=== PATIENT | male | born 1930 | race Hispanic/Latino ===

== ENCOUNTER 2017-04-11 20:21 | Emergency (ER) | payer MEDICARE ==
[2017-04-11 20:38] VITALS: BMI 24.9
[2017-04-11 20:39] VITALS: TEMP 98
[2017-04-11 21:33] LABS: BASO # 0.03 K/mm3 (0.0-2.0); BASO % 0.3 % (0.0-3.0); EOS # 0.3 (0.0-0.7); GRAN # 7.19 (1.4-6.5); GRAN % 65.2 % (50.0-68.0); HEMATOCRIT 37.2 % (42.0-52.0); LYMPH # 2.3 (1.2-3.4); MEAN CELL VOLUME 88.4 fl (80.0-105.0); MEAN CORPUSCULAR HEMOGLOBIN 28.3 pg (25.0-35.0); MEAN PLATELET VOLUME 9.4 fl (7.0-11.0); MONO # 1.2 (0.1-0.6); MONO % 10.5 % (1.0-6.0); RED CELL DISTRIBUTION WIDTH 14.1 % (11.5-14.5)
[2017-04-11 21:37] LABS: ALB/GLOB RATIO 1.1 (1.1-1.8); ALKALINE PHOSPHATASE 73 U/L (38-126); ALT/SGPT 30 U/L (7-56); AST/SGOT 30 U/L (17-59); BILIRUBIN,TOTAL 0.5 mg/dL (0.2-1.3); BLOOD UREA NITROGEN 14 mg/dL (7-21); CALCIUM 9.2 mg/dL (8.4-10.5); CARBON DIOXIDE 25 mmol/L (21-33); CHLORIDE 104 mmol/L (98-107); GFR AFRICAN-AMERICAN > 60; GLUCOSE,RANDOM 117 mg/dL (70-110); MAGNESIUM 1.7 mg/dL (1.7-2.2); POTASSIUM 4.5 mmol/L (3.6-5.0); SODIUM 138 mmol/L (132-148); TOTAL PROTEIN 7.4 g/dL (5.8-8.3)
[2017-04-11 21:40] LABS: INR 2.72 (0.93-1.08); PARTIAL THROMBOPLASTIN TIME 40.6 Seconds (23.7-30.8)
[2017-04-11 21:49] LABS: TROPONIN I 0.01 ng/mL
[2017-04-11] MEDS ORDERED: Iohexol 350 MG/100 ML VIAL ONE (21:54)
--- NOTE | 2017-04-11 21:55 | ED PDOC ---
Arrival/HPI - General Chief Complaint: Back Pain Time Seen by Provider: 04/11/17 20:37 Historian: Patient - History of Present Illness Narrative History of Present Illness (Text): 04/11/17 21:54 An 86 year old male, whose past medical history includes thoracic ascending aneurysm and arthritis, presents to the emergency department complaining of bilateral shoulder pain and neck pain. Patient's daughter is concerned because of patient's history of aneurysm and is specifically asking for imaging in the emergency department. Patient reports pain resolved after taking Tylenol. Patient denies any other complaints at this time. PMD: Dr. Marie Symptom Onset: Sudden Symptom Course: Resolved Activities at Onset: Rest Modifying Factors (Text): symptoms resolved with tylenol Context: Home Past Medical History - Provider Review Nursing Documentation Reviewed: Yes - Infectious Disease Hx of Infectious Diseases: None - Cardiac Hx Cardiac Disorders: Yes Other/Comment: AORTIC ANEURYSM. Aortic valve 1994. Triple bYpass - Pulmonary Hx Respiratory Disorders: No - Neurological Hx Neurological Disorder: Yes Hx Transient Ischemic Attacks (TIA): Yes - HEENT Hx HEENT Disorder: No - Renal Hx Renal Disorder: No - Endocrine/Metabolic Hx Endocrine Disorders: No - Hematological/Oncological Hx Blood Disorders: No - Integumentary Hx Dermatological Disorder: No - Musculoskeletal/Rheumatological Hx Musculoskeletal Disorders: No Hx Falls: No - Gastrointestinal Hx Gastrointestinal Disorders: Yes Hx Crohn's Disease: Yes - Genitourinary/Gynecological Hx Genitourinary Disorders: No - Psychiatric Hx Psychophysiologic Disorder: No Hx Substance Use: No - Surgical History Hx Coronary Stent: Yes (x1) Hx Open Heart Surgery: Yes Hx Valve Replacement: Yes (AORTIC) Other/Comment: HEMORRHOIDECTOMY. AORTIC ANEURYSM. Aortic valve 1994. Triple bYpass - Anesthesia Hx Anesthesia: Yes Hx Anesthesia Reactions: No Hx Malignant Hyperthermia: No - Suicidal Assessment Feels Threatened In Home Enviroment: No Family/Social History - Physician Review Nursing Documentation Reviewed: Yes Family/Social History: No Known Family HX Smoking Status: Never Smoked Hx Alcohol Use: No Hx Substance Use: No Hx Substance Use Treatment: No Allergies/Home Meds Allergies/Adverse Reactions: Allergies pneumococcal vaccine Allergy (Verified 03/29/16 07:29) RASH Home Medications: Home Meds Medication Instructions Recorded Confirmed Amiodarone [Cordarone] 100 mg PO DAILY 09/02/15 04/11/17 Aspirin [Ecotrin] 81 mg PO DAILY 09/02/15 04/11/17 Mesalamine [Pentasa] 1,000 mg PO BID 09/02/15 04/11/17 Calcium Carbonate/Vitamin D3 1 tab PO DAILY 11/09/15 04/11/17 [Calcium 600-Vit D3 200 Tablet] Simvastatin [Zocor] 40 mg PO DAILY 11/09/15 04/11/17 Warfarin [Coumadin] 4 mg PO TTS 11/09/15 04/11/17 Glimepiride 2 mg PO HS 03/01/16 04/11/17 metFORMIN [glucOPHAGE] 500 mg PO TID 03/01/16 04/11/17 Tamsulosin [Flomax] 0.4 mg PO DAILY 03/29/16 04/11/17 Review of Systems - Physician Review All systems were reviewed & negative as marked: Yes - Review of Systems Constitutional: absent: Fevers Musculoskeletal: Neck Pain, Other (bilateral shoulder pain) Physical Exam Vital Signs Reviewed: Yes Vital Signs Temp Pulse Resp BP Pulse Ox 04/11/17 22:48 72 20 154/74 H 95 04/11/17 20:38 98 F 75 17 150/76 96 Temperature: Afebrile Blood Pressure: Normal Pulse: Regular Respiratory Rate: Normal Appearance: Positive for: Well-Appearing, Non-Toxic, Comfortable Pain Distress: None Mental Status: Positive for: Alert and Oriented X 3 - Systems Exam Head: Present: Atraumatic, Normocephalic Pupils: Present: PERRL Extroacular Muscles: Present: EOMI Conjunctiva: Present: Normal Mouth: Present: Moist Mucous Membranes Neck: Present: Normal Range of Motion Respiratory/Chest: Present: Clear to Auscultation, Good Air Exchange. No: Respiratory Distress, Accessory Muscle Use Cardiovascular: Present: Regular Rate and Rhythm, Normal S1, S2. No: Murmurs Abdomen: Present: Normal Bowel Sounds. No: Tenderness, Distention, Peritoneal Signs Back: Present: Normal Inspection Upper Extremity: Present: Normal Inspection. No: Cyanosis, Edema Lower Extremity: Present: Normal Inspection. No: Edema Neurological: Present: GCS=15, CN II-XII Intact, Speech Normal Skin: Present: Warm, Dry, Normal Color. No: Rashes Psychiatric: Present: Alert, Oriented x 3, Normal Insight, Normal Concentration Medical Decision Making ED Course and Treatment: 04/11/17 21:52 Impression: An 86 year old male with bilateral shoulder pain and neck pain. Plan: -- CT angiography disection -- chest xray -- labs -- Urinalysis -- Reassess and disposition Prior Visits: Notes and results from previous visits were reviewed. Patient last reported to the emergency department on 03/29/16 for evaluation of stiff neck. Progress Notes: CT Angiography Chest With Intravenous Contrast FINDINGS: Heart, aorta and Pulmonary arteries: The heart is enlarged. There are coronary artery calcifications. There is an ascending aortic aneurysm. Maximal diameter is approximately 5.3 cm. There is no dissection. There is no leak. There is tapering at the arch. There is perfusion of the 3 arch vessels. There are atherosclerotic calcifications in the arch. Proximal descending aorta measures 2.8 cm in diameter. The distal descending aorta measures 2.2 cm in diameter. Main pulmonary artery is normal in caliber.There are no pulmonary emboli. Lungs and pleural spaces: Trachea and main bronchi are patent. There is a 1.8 x 1.3 x 1 cm right upper lobe pulmonary nodule. There is subsegmental opacity in the left upper lobe. There is dependent atelectasis in the lung bases. There is no lobar or segmental consolidation There are no effusions. Mediastinum: There is no fluid in the mediastinum. There are multiple clips. Esophagus is unremarkable. There are mildly prominent paratracheal nodes. There are no pathologically enlarged hilar nodes. Thyroid: Thyroid is only partially imaged. Bones/joints: There are postsurgical changes of median sternotomy. Bony structures are osteopenic. There are degenerative changes. There is an old compression fracture T7. There is an old compression fracture T11. There is an old compression fracture with severe deformity at T12. There are retropulsed fragments at T12. There is T12 laminectomy. Soft tissues: unremarkable Upper abdomen: Refer to following report for abdominal findings IMPRESSION: 5.3 cm ascending aortic aneurysm, no dissection or leak, similar finding seen on the prior study; atherosclerotic disease;; 1.8 x 1.3 x 1 cm right upper lobe pulmonary nodule increased in size since the prior study; subsegmental atelectasis/scarring in the left upper lobe, similar finding seen on the prior study; prior bypass surgery; multiple compression fractures Additional findings as described above. CT Angiography Abdomen and Pelvis With Intravenous Contrast FINDINGS: Lower thorax: see above VASCULATURE: Aorta: There are atherosclerotic calcifications in the aortic wall. There is focal dilatation of the infrarenal aorta, 2 cm in diameter. There is no leak. There is perfusion of all major abdominal aortic branches. There are calcified plaques at the origins both renal arteries. There is minimal plaque at the origin of the superior mesenteric artery. A there is perfusion of both iliacs. Celiac trunk and mesenteric arteries: see above Renal arteries: See above. Iliac arteries: see above ABDOMEN: Liver: unremarkable Gallbladder and bile ducts: Gallbladder is partially distended. There are small calcified stones. Common duct is unremarkable. Pancreas: Pancreas is atrophic. Spleen: unremarkable Adrenals: unremarkable Kidneys and ureters: Unremarkable Stomach and bowel: Stomach is incompletely distended. Rotation is normal. There is duodenal fold and wall prominence. Jejunum is mildly distended. There are air-fluid levels in the left upper quadrant jejunal loops. The small bowel is distended with fluid. There is distal and terminal ileal wall and fold thickening. There is abnormal wall enhancement. Wall thickening and enhancement extends to the ileocecal valve.Appendix is not visualized.Colon is incompletely distended which limits evaluation. Streak limits evaluation of the colon. There is extensive sigmoid diverticulosis. Appendix: See above PELVIS: Bladder: Bladder is partially distended. There is mild bladder wall thickening. There are multiple bladder diverticula. Reproductive: Prostate is enlarged 6 x 6 cm. Seminal vesicles are unremarkable. ABDOMEN and PELVIS: Intraperitoneal space: There is no free air or free fluid. Bones/joints: Bony structures are osteopenic. There are degenerative changes. There is mild loss of height at T11 and L2. There is severe compression deformity at T12. There is a laminectomy at T12 There is old compression fracture L5 with vertebroplasty. Soft tissues: unremarkable Lymph nodes: There is no pathologic adenopathy. IMPRESSION: Atherosclerotic disease in the aorta, minimal intra-renal dilatation , no dissection or leak; enteritis with marked thickening of distal and terminal ileal wall; diverticulosis without CT findings of diverticulitis; enlarged prostate with bladder wall thickening and multiple bladder diverticula; multiple compression fractures at L5 vertebroplasty Additional findings as described above. Dictated and Authenticated by: Carmen Alva MD 04/11/2017 11:48 PM Eastern Time ([place] & [place]) 04/11/17 23:55 Chest xray: No active disease, interpreted by me. 04/12/17 00:20 CT neg for aneurysm, CT shows enteritis. Patient with history of Crohn's disease. No fever or abdominal pain. While in emergency department, patient was complaining of mild headache, Tylenol given. Patient is ambulating in no acute distress. Patient is requesting to be discharged home an refusing further observation. - Lab Interpretations Lab Results: 04/11/17 21:15 04/11/17 21:15 Lab Results 04/11/17 23:19: Urine Color Yellow, Urine Appearance Clear, Urine pH 6.0, Ur Specific [place] 1.010, Urine Protein Negative, Urine Glucose (UA) Negative, Urine Ketones Negative, Urine Blood Trace-lysed H, Urine Nitrate Negative, Urine Bilirubin Negative, Urine Urobilinogen 0.2, Ur Leukocyte Esterase Negative , Urine RBC 0 - 2, Urine WBC 0 - 2, Ur Epithelial Cells 0 - 2 04/11/17 21:15: Sodium 138, Potassium 4.5, Chloride 104, Carbon Dioxide 25, Anion Gap 14, BUN 14, Creatinine 1.0, Est GFR ( Amer) > 60, Est GFR (Non- Af Amer) > 60, Random Glucose 117 H, Calcium 9.2, Magnesium 1.7, Total Bilirubin 0.5, AST 30, ALT 30, Alkaline Phosphatase 73, Lactate Dehydrogenase 447, Total Creatine Kinase 46, Troponin I 0.01, Total Protein 7.4, Albumin 3.9, Globulin 3.5, Albumin/Globulin Ratio 1.1 04/11/17 21:15: PT 29.4 H, INR 2.72 H, APTT 40.6 H 04/11/17 21:15: WBC 11.0 D, RBC 4.21, Hgb 11.9 L, Hct 37.2 L, MCV 88.4, MCH 28.3, MCHC 32.0, RDW 14.1, Plt Count 309, MPV 9.4, Gran % 65.2, Lymph % (Auto) 21.0 L, [place] % (Auto) 10.5 H, Eos % (Auto) 3.0, Baso % (Auto) 0.3, Gran # 7.19 H , Lymph # 2.3, [place] # 1.2 H, Eos # 0.3, Baso # 0.03 I have reviewed the lab results: Yes - RAD Interpretation Radiology Orders: 04/11/17 20:53 CHEST PORTABLE [RAD] Stat 04/11/17 21:43 ANGIOGRAPHY DISECTION PROTOCOL [CT] Stat - Medication Orders Current Medication Orders: Discontinued Medications Acetaminophen (Tylenol 325mg Tab) 650 mg PO STAT STA Stop: 04/11/17 23:56 Last Admin: 04/12/17 00:10 Dose: 650 mg MAR Pain/Vitals Document 04/12/17 00:10 [facility] (Rec: 04/12/17 00:11 [facility] [id number]) Pain Reassessment Is This A Pain ReAssessment? No Sleep Is patient sleeping during reassessment? No Presence of Pain Presence of Pain Yes Pain Scale Used Pain Scale Used Numeric Location Pain Location Body Business Change Manager Description Constant Intensity 4 Scale Used Numeric - Scribe Statement The provider has reviewed the documentation as recorded by the Scribe Ivan Bullock All medical record entries made by the Scribe were at my direction and personally dictated by me. I have reviewed the chart and agree that the record accurately reflects my personal performance of the history, physical exam, medical decision making, and the department course for this patient. I have also personally directed, reviewed, and agree with the discharge instructions and disposition. Disposition/Present on Arrival - Present on Arrival Any Indicators Present on Arrival: No History of DVT/PE: No History of Uncontrolled Diabetes: No Urinary Catheter: No History of Decub. Ulcer: No History Surgical Site Infection Following: CABG - Mediastinitis - Disposition Have Diagnosis and Disposition been Completed?: Yes Diagnosis: Shoulder pain, Neck pain Disposition: HOME/ ROUTINE Disposition Time: 11:00 Condition: STABLE Discharge Instructions (ExitCare): Cervical Strain (DC), Thoracic Aortic Aneurysm (ED), Shoulder Sprain (ED) Additional Instructions: please follow up with your doctor. return to er with worsening symptoms or concerns Referrals: Reji Marie MD [Primary Care Provider] - Follow up with primary Twan Edward MD [Staff Provider] - Follow up with primary Forms: [employer] (Japanese)
[2017-04-11 22:49] VITALS: BP 154/74; PULSE 72; RESP 20; O2SAT 95
[2017-04-11 23:36] LABS: URINE BILIRUBIN NEGATIVE (NEGATIVE); URINE BLOOD TRACE-LYSED (NEGATIVE); URINE GLUCOSE (UA) NEGATIVE (NEGATIVE); URINE KETONE NEGATIVE (NEGATIVE); URINE LEUKOCYTE ESTERASE NEGATIVE Leu/uL (NEGATIVE); URINE PROTEIN NEGATIVE mg/dL (<30 mg/dL); URINE UROBILINOGEN 0.2 E.U./dL (<1 E.U./dL)
[2017-04-11 23:46] LABS: URINE APPEARANCE CLEAR (CLEAR); URINE COLOR YELLOW (YELLOW)
--- NOTE | 2017-04-11 23:48 | CT ---
EXAM: CT Angiography Chest With Intravenous Contrast CLINICAL HISTORY: 86 years old, male; Pain; Abdominal pain; Chest pain; Type not specified; Patient HX: Prior study sent; Additional info: Cp h/o of thorasic aneursym TECHNIQUE: Axial computed tomographic angiography images of the chest with intravenous contrast using pulmonary embolism protocol. All CT scans at this facility use one or more dose reduction techniques, viz.: automated exposure control; ma/kV adjustment per patient size (including targeted exams where dose is matched to indication; i.e. head); or iterative reconstruction technique. MIP reconstructed images were created and reviewed. Coronal and sagittal reformatted images were created and reviewed. CONTRAST: 100 mL of OMNI 350 administered intravenously. COMPARISON: CTA chest abdomen 07/21/15 FINDINGS: Heart, aorta and Pulmonary arteries: The heart is enlarged. There are coronary artery calcifications. There is an ascending aortic aneurysm. Maximal diameter is approximately 5.3 cm. There is no dissection. There is no leak. There is tapering at the arch. There is perfusion of the 3 arch vessels. There are atherosclerotic calcifications in the arch. Proximal descending aorta measures 2.8 cm in diameter. The distal descending aorta measures 2.2 cm in diameter. Main pulmonary artery is normal in caliber.There are no pulmonary emboli. Lungs and pleural spaces: Trachea and main bronchi are patent. There is a 1.8 x 1.3 x 1 cm right upper lobe pulmonary nodule. There is subsegmental opacity in the left upper lobe. There is dependent atelectasis in the lung bases. There is no lobar or segmental consolidation There are no effusions. Mediastinum: There is no fluid in the mediastinum. There are multiple clips. Esophagus is unremarkable. There are mildly prominent paratracheal nodes. There are no pathologically enlarged hilar nodes. Thyroid: Thyroid is only partially imaged. Bones/joints: There are postsurgical changes of median sternotomy. Bony structures are osteopenic. There are degenerative changes. There is an old compression fracture T7. There is an old compression fracture T11. There is an old compression fracture with severe deformity at T12. There are retropulsed fragments at T12. There is T12 laminectomy. Soft tissues: unremarkable Upper abdomen: Refer to following report for abdominal findings IMPRESSION: 5.3 cm ascending aortic aneurysm, no dissection or leak, similar finding seen on the prior study; atherosclerotic disease;; 1.8 x 1.3 x 1 cm right upper lobe pulmonary nodule increased in size since the prior study; subsegmental atelectasis/scarring in the left upper lobe, similar finding seen on the prior study; prior bypass surgery; multiple compression fractures Additional findings as described above. EXAM: CT Angiography Abdomen and Pelvis With Intravenous Contrast EXAM DATE/TIME: 04/11/2017 9:43 PM CLINICAL HISTORY: 86 years old, male; Pain; Abdominal pain; Chest pain; Type not specified; Patient HX: Prior study sent; Additional info: Cp h/o of thorasic aneursym TECHNIQUE: Axial computed tomographic angiography images of the abdomen and pelvis with intravenous contrast. All CT scans at this facility use one or more dose reduction techniques, viz.: automated exposure control; ma/kV adjustment per patient size (including targeted exams where dose is matched to indication; i.e. head); or iterative reconstruction technique. MIP reconstructed images were created and reviewed. Coronal and sagittal reformatted images were created and reviewed. CONTRAST: 100 mL of OMNI 350 administered intravenously. COMPARISON: CTA chest abdomen 07/21/15 FINDINGS: Lower thorax: see above VASCULATURE: Aorta: There are atherosclerotic calcifications in the aortic wall. There is focal dilatation of the infrarenal aorta, 2 cm in diameter. There is no leak. There is perfusion of all major abdominal aortic branches. There are calcified plaques at the origins both renal arteries. There is minimal plaque at the origin of the superior mesenteric artery. A there is perfusion of both iliacs. Celiac trunk and mesenteric arteries: see above Renal arteries: See above. Iliac arteries: see above ABDOMEN: Liver: unremarkable Gallbladder and bile ducts: Gallbladder is partially distended. There are small calcified stones. Common duct is unremarkable. Pancreas: Pancreas is atrophic. Spleen: unremarkable Adrenals: unremarkable Kidneys and ureters: Unremarkable Stomach and bowel: Stomach is incompletely distended. Rotation is normal. There is duodenal fold and wall prominence. Jejunum is mildly distended. There are air-fluid levels in the left upper quadrant jejunal loops. The small bowel is distended with fluid. There is distal and terminal ileal wall and fold thickening. There is abnormal wall enhancement. Wall thickening and enhancement extends to the ileocecal valve.Appendix is not visualized.Colon is incompletely distended which limits evaluation. Streak limits evaluation of the colon. There is extensive sigmoid diverticulosis. Appendix: See above PELVIS: Bladder: Bladder is partially distended. There is mild bladder wall thickening. There are multiple bladder diverticula. Reproductive: Prostate is enlarged 6 x 6 cm. Seminal vesicles are unremarkable. ABDOMEN and PELVIS: Intraperitoneal space: There is no free air or free fluid. Bones/joints: Bony structures are osteopenic. There are degenerative changes. There is mild loss of height at T11 and L2. There is severe compression deformity at T12. There is a laminectomy at T12 There is old compression fracture L5 with vertebroplasty. Soft tissues: unremarkable Lymph nodes: There is no pathologic adenopathy. IMPRESSION: Atherosclerotic disease in the aorta, minimal intra-renal dilatation, no dissection or leak; enteritis with marked thickening of distal and terminal ileal wall; diverticulosis without CT findings of diverticulitis; enlarged prostate with bladder wall thickening and multiple bladder diverticula; multiple compression fractures at L5 vertebroplasty Additional findings as described above.
[2017-04-11 23:57] LABS: URINE EPITHELIAL CELLS 0 - 2 /hpf (0-5); URINE RBC 0 - 2 /hpf (0-2); URINE WBC 0 - 2 /hpf (0-6)
--- NOTE | 2017-04-12 08:51 | RAD ---
HISTORY: cp COMPARISON: 11/09/2015 FINDINGS: LUNGS: No active pulmonary disease. PLEURA: No significant pleural effusion identified, no pneumothorax apparent. CARDIOVASCULAR: Moderate cardiomegaly OSSEOUS STRUCTURES: Sternal wires VISUALIZED UPPER ABDOMEN: Normal. OTHER FINDINGS: None. IMPRESSION: No active disease.
--- NOTE | 2017-04-12 22:07 | CARD ---
APPROVED REPORT EKG Measurement Heart [id number] ID [id number] <Conclusion> Normal sinus rhythm Low voltage QRS Septal infarct, age undetermined Consider anterior ischemia Abnormal ECG
== END 2017-04-12 00:31 | disposition home or self-care (01) ==
LOC: ED 20:21
DX: M25.512 Pain in left shoulder (principal); M25.511 Pain in right shoulder; M54.2 Cervicalgia
CPT/HCPCS: 71010; 71275; 74175; 80053; 81001; 82550; 83615; 83735; 84484; 85025; 85610; 85730; 93005; 99283; Q9967

== ENCOUNTER 2017-06-16 06:58 | Inpatient (IN) | payer MEDICARE ==
[2017-06-16] MEDS ORDERED: Phenylephrine 10 mg/ml Inj ONE (07:04)
[2017-06-16] MEDS ORDERED: Lidocaine 2% Inj (20ml) ONE (07:04)
[2017-06-16] MEDS ORDERED: Iodixanol 320 MG/ML 100 ML BOTTLE IV ONE (07:09)
[2017-06-16] MEDS ORDERED: Iohexol 350mgl/ml 50 ML ONE (07:09)
[2017-06-16] MEDS ORDERED: Nitroglycerin 50mg in D5W 0 MG/0 ML BOTTLE IV ONE (07:09)
[2017-06-16] MEDS ORDERED: Midazolam 2 MG/2 ML VIAL ONE ×2 (07:09→08:39)
[2017-06-16] MEDS ORDERED: Iodixanol 320 MG/ML 200 ML BOTTLE IV ONE (07:09)
[2017-06-16] MEDS ORDERED: HEPARIN SODIUM/NS 2,000 ML IV ONE (07:13)
[2017-06-16 08:07] LABS: INR 1.25 (0.93-1.08); PROTHROMBIN TIME 13.8 SECONDS (9.4-12.5)
[2017-06-16] MEDS ORDERED: HEPARIN SODIUM/NS 1,000 ML IV ONE (08:41)
[2017-06-16] MEDS ORDERED: Sodium Chloride 0.9% 1,000 ML IV SCH ×2 (09:30→12:57)
[2017-06-16] MEDS: Flumazenil 0.1 mg/ml Inj (5ml) IVP STA ×2 (10:55→11:12)
[2017-06-16] MEDS ORDERED: Flumazenil 0.1 mg/ml Inj (5ml) IVP STA (11:07)
--- NOTE | 2017-06-16 12:31 | CT ---
PROCEDURE: CT HEAD WITHOUT CONTRAST. HISTORY: r/o stroke COMPARISON: CT head dated 11/09/2015. TECHNIQUE: Axial computed tomography images were obtained through the head/brain without intravenous contrast. Radiation dose: Total exam DLP = 971.7 mGy-cm. This CT exam was performed using one or more of the following dose reduction techniques: Automated exposure control, adjustment of the mA and/or kV according to patient size, and/or use of iterative reconstruction technique. FINDINGS: HEMORRHAGE: No intracranial hemorrhage. BRAIN: Faint opacification of the intracranial vessels from recent intravascular procedure with patency of the [place] vessels. No mass effect or edema. Cerebral atrophy. Chronic microvascular ischemic changes in the periventricular white matter. VENTRICLES: Unremarkable. No hydrocephalus. CALVARIUM: Unremarkable. PARANASAL SINUSES: Unremarkable as visualized. No significant inflammatory changes. MASTOID AIR CELLS: Unremarkable as visualized. No inflammatory changes. OTHER FINDINGS: None. IMPRESSION: No intracranial hemorrhage or acute lobar infarct. Findings conveyed to Dr. Cole at 12:27 pm on 06/16/2017.
--- NOTE | 2017-06-16 12:50 | CARD ---
APPROVED REPORT EKG Measurement Heart [id number] <Conclusion> Normal sinus rhythm ASMI, old Leftward axis STTW changes No change
--- NOTE | 2017-06-16 13:46 | PCM.RRT ---
<Devang Thompson - Last Filed: 06/16/17 13:20> ABORIGINAL LIAISON OFFICER Nurse Assessment - Situation Date: 06/16/17 Time ABORIGINAL LIAISON OFFICER was called: 11:53 ABORIGINAL LIAISON OFFICER Responder Arrival Time: 11:55 ABORIGINAL LIAISON OFFICER Location:: [address] [place] [address] ABORIGINAL LIAISON OFFICER Reason for Call: Change in Mental Status ABORIGINAL LIAISON OFFICER Called By: RN - IV IV Inserted during ABORIGINAL LIAISON OFFICER?: No - Respiratory Oxygen Delivery Method: Nasal Cannula @L/min Oxygen Flow Rate: 3 Received Nebulizer Treatments:: No Was the Patient Ventilated with Bag/Mask 100% O2?: No Secretions Suctioned?: No Was the Patient Intubated?: No Was the Patient Placed on a Ventilator?: No - Medication Medications Administered During ABORIGINAL LIAISON OFFICER: N/A - Diagnostic Test Ordered Chest X-Ray: No CT Scan: Yes CPR started during ABORIGINAL LIAISON OFFICER?: No - Vital Signs Vital Sign: Rapid Response Vital Sign Blood Pressure 163/87 Pulse Rate 88 Respiratory Rate 18 - Finger Stick Blood Glucose Finger Stick Blood Glucose: 142 - Time ABORIGINAL LIAISON OFFICER Ended Time ABORIGINAL LIAISON OFFICER Ended: 12:05 - Recommendations Notifications: Attending Physician I.Reason for ABORIGINAL LIAISON OFFICER - A) Acute Change in Patient: (Select all that apply): Staff member or family is worried about patient, Acute change in mental status (patient alterred post-procedure, not recognizing family at bedside, agitated, slurred speech) Subjective: House Physician Resident Devang Thompson, IM PGY-2 Rapid response called at 1153, responded immediately. As per nursing at bedside , patient is an 86 yo M s/p cardiac cath, came to the floor approximately 3 hours prior to rapid response. Patient was initially somnolent post-procedure, having received sedation medications for the procedure, but as he awoke, was noted to be disoriented (did not recognize where he was, did not recognize family at bedside) agitated (not following commands, trying to climb out of bed) , and was noted to have some slurred speech and possible expressive aphasia, so a rapid response was called. Patient attempting to move canulated leg (cathed through Right leg) despite presence of immobilizer and instructions from staff and family to keep leg still. Fignerstick of 141 obtained by nursing. 1:1 with PCP present prior to rapid. In discussion with family, his baseline mentation is AAOx3, and his baseline speech is regular, but family noted that he has had some slurred speech in the past due to TIAs. 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 Patient was transported down to CT scanner for Head CT. While in transport, patient remained agitated and attempted to climb out of bed. When transferring to CT scanner, patient was found to have voided a significant amount of urine in the bed, saturating his stretcher, sheets, and gown. Head CT was obtained, was negative for acute hemorrhage or infarct as per Radiologist (Dr. Ramírez). Patient was switched to dry sheets and gown, which seemed to have a calming effect. Per family, no history of urinary incontinence, and per nursing, no signs of any seizure activity prior to or during the rapid response. Patient returned to room in telemetry, will remain overnight for monitoring as per Dr. Fuentes. Given possibility of post-procedure delirium, avoiding the use of any sedating medications at this time, as can worsen delirium. Neuro (Dr. Winston Gentile ) consulted by PMD, message left with Neuro service informing of the consult as well as the rapid response/code stroke prompting the consult. Will continue 1:1 , leg immobilizer, and encouraged family at bedside to continuously reorient him to self/location/time. - Respiratory Oxygen Delivery Method: Nasal Cannula @L/min Oxygen Flow Rate: 3 - Constitutional Appears: Non-toxic, Combative, Agitated, Confused. absent: In Acute Distress ( altered and combative, due not acute distress or pain evident) Additional Comments: Exam limited as patient confused, intermittently combative, not following commands - Head Head Exam: ATRAUMATIC, NORMAL INSPECTION, NORMOCEPHALIC - Eyes Eye Exam: absent: Conjunctival injection, Scleral icterus - Respiratory Exam Respiratory Exam: Clear to Ausculation Bilateral, NORMAL BREATHING PATTERN. absent: Accessory Muscle Use, Chest Wall Tenderness, Decreased Breath Sounds, Rales, Rhonchi, Wheezes - Cardiovascular Exam Cardiovascular Exam: REGULAR RHYTHM, RRR, +S1, +S2. absent: Bradycardia, Tachycardia, Irregular Rhythm - GI/Abdominal Exam GI & Abdominal Exam: Soft - Neurological Exam Additional exam: Confused, altered, some slurred speech that improved by end of rapid response. Moving bilateral upper extremities and left lower extremity freely, and without any overt deficit, attempting to move right leg despite immobilizer and staff restraining No gross facial droop, unable to fully test all cranial nerves due to agitation and not following commands but no overt deficits noted - Extremities Exam Additional comments: pressure bandaging at right groin, no bleeding/oozing/hematoma at site noted leg immobilizer on right LE in place due to patient attempting to move the leg despite recent cath Plan - Assessment of Findings&Treatment Plan CT head obtained, negative for acute stroke Cardio (Dr. Fuentes) present for rapid and code stroke, aware of CT results Neuro consulted as per Dr. Fuenets Patient returned to telemetry room, continue 1:1 to ensure no movement of canulated leg <Edilma Newman - Last Filed: 06/16/17 17:25> ABORIGINAL LIAISON OFFICER Nurse Assessment - Vital Signs Vital Sign: Rapid Response Vital Sign Blood Pressure 163/87 Pulse Rate 88 Respiratory Rate 18 Attending/Attestation - Attestation I have personally seen and examined this patient.: Yes I have fully participated in the care of the patient.: Yes I have reviewed all pertinent clinical information, including history, physical exam and plan: Yes Notes (Text): 06/16/17 17:10 ABORIGINAL LIAISON OFFICER / code stroke called for altered mental status with slurred speech and ? aphasia. CT head was ordered which was negative. Neurology evaluation was requested. Patient reportedly took aspirin at home and plavix earlier this morning prior to cardiac cath. Basic labs and UA are ordered. PMD (Dr. Fuentes) and neurology were notified.
[2017-06-16 15:26] LABS: URINE BILIRUBIN NEGATIVE (NEGATIVE); URINE BLOOD MODERATE (NEGATIVE); URINE GLUCOSE (UA) NEGATIVE (NEGATIVE); URINE LEUKOCYTE ESTERASE NEGATIVE Leu/uL (NEGATIVE); URINE NITRATE NEGATIVE (NEGATIVE); URINE PROTEIN 30 mg/dL (<30 mg/dL); URINE UROBILINOGEN 0.2 E.U./dL (<1 E.U./dL)
[2017-06-16 15:36] LABS: URINE COLOR YELLOW (YELLOW)
[2017-06-16 15:37] LABS: URINE APPEARANCE CLEAR (CLEAR)
[2017-06-16 15:52] LABS: URINE EPITHELIAL CELLS 0 - 2 /hpf (0-5); URINE RBC 20 - 25 /hpf (0-2); URINE WBC 0 - 2 /hpf (0-6)
--- NOTE | 2017-06-16 17:26 | CARDCATH ---
PROCEDURE DATE: 06/16/2017 PROCEDURES: 1. Selective left and right coronary angiography. 2. Saphenous venography x2. 3. Percutaneous coronary intervention of saphenous vein to left anterior descending and diagonal with drug-eluting stents. 4. Right femoral arteriography. 5. Mynx deployment. HISTORY: This is an 86-year-old male with known coronary artery disease, status post prior bypass surgery and emergency PCI of his vein graft to the LAD in 2007, who has had worsening exertional arm pain and an abnormal stress test, and repeat intervention was recommended. INDICATIONS: 1. Progressive angina. 2. Known coronary artery disease. FINDINGS: HEMODYNAMICS: The aortic pressure was 130/76. 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 CORONARY ANATOMY: 1. The left main stem had a 20% proximal tapering. 2. The left anterior descending artery was occluded proximally. 3. The left circumflex artery gave rise to 2 [id number] size obtuse marginal branches, which had mild diffuse disease. 4. The right coronary artery was occluded in its mid portion. 5. Saphenous vein graft to the RCA had a 70% stenosis in the mid portion of the vessel, this supplied a moderate size PDA. 6. The saphenous vein graft to the LAD had evidence of 70% in-stent restenosis in the mid portion of the stent. Beyond this, there was an 80% stenosis at the edge of the stent extending into the mid body of the graft. Both limbs of the vein graft filled, first filling the LAD and second a diagonal branch. A mild diffuse disease was noted distally. There was a 50% stenosis at the graft just proximal to its insertion into the LAD. The proximal graft also had a diffuse 40% to 50% stenosis present. CORONARY INTERVENTION: Given the above findings, attempted PCI of the vein graft to the LAD was then performed. A left Amplatz guide catheter was utilized to cannulate the graft. The lesion in the vein graft was successfully closed with the use a Wheaton wire. A 4000 units of intravenous heparin had been administered and the ACT was greater than 250 seconds during the procedure. The two sides within the mid section of the LAD graft were then dilated with a 3.0 x 12 mm balloon. Following this, a 4.0 x 15 mm Resolute drug-eluting stent was advanced into the mid body of the graft, covering the distal edge of the stent as well as the de augusta lesion beyond the stent. This was inflated to 12 atmospheres. Following this, a 4.0 x 12 mm Resolute drug-eluting stent was advanced into the area of in-stent restenosis. This was inflated to 14 atmospheres. The stent balloon was then removed. Following this, a 4.5 x 15 mm noncompliant Sprinter balloon was advanced into the newly stented segments and inflated to 14 atmospheres at both sides for 30 to 45 seconds. There was 0% residual stenosis within the treated segments. The proximal lesion remained unchanged; therefore, a 50% narrowing and SHADE grade 3 flow was noted distally. The other lesions were left untreated at this time and continued medical therapy will be planned. If he has progressive exertional symptoms, attempted PCI of the vein graft to the RCA can then be performed. RIGHT FEMORAL ARTERIOGRAPHY: The right femoral arteriogram was performed in the CEDENO projection. This revealed appropriate level of arterial puncture and no evidence of significant disease. The puncture site was then closed with deployment of Mynx device. CONCLUSION: 1. Severe three-vessel coronary artery disease. 2. Severe in-stent and de augusta stenosis of the left anterior descending artery, graft as described above. 3. Significant right coronary artery vein graft disease. 4. Successful percutaneous coronary intervention of the severe left anterior descending artery graft in-stent restenosis and de augusta lesions as described above. RECOMMENDATIONS: Aspirin and Plavix therapy along with his Coumadin will be continued for the next several months. After 2 to 3 months, his aspirin will be discontinued, and Plavix and Coumadin therapy will be continued for up to 1 year. Continued risk factor control will be advised. If he does have recurrent symptoms, PCI of the vein graft to the RCA can be considered. However, if he is well controlled with medical therapy, that would certainly be a reasonable option. Imtiaz Peterson MD cc: Reji Marie MD
[2017-06-16 18:01] VITALS: BMI 26.0
[2017-06-16 18:21] LABS: ALBUMIN 4.6 g/dL (3.0-4.8); ALT/SGPT 28 U/L (7-56); AST/SGOT 41 U/L (17-59); BLOOD UREA NITROGEN 14 mg/dL (7-21); CALCIUM 9.8 mg/dL (8.4-10.5); GFR AFRICAN-AMERICAN > 60; GFR NON-AFRICAN AMERICAN > 60; HDL CHOLESTEROL 33 mg/dL (29-60)
[2017-06-16 18:31] LABS: LDL CHOLESTEROL 63 mg/dL (0-129)
[2017-06-16] MEDS: Mesalamine ER Cap 500 MG PO SCH (18:39)
[2017-06-16 18:40] LABS: FREE T4 1.28 ng/dL (0.78-2.19); T4 10.6 ug/dL (5.5-11.0)
[2017-06-16 18:52] LABS: ALB/GLOB RATIO 1.1 (1.1-1.8)
[2017-06-16 18:54] LABS: T3 1.35 ng/mL (0.97-1.69)
[2017-06-16] MEDS ORDERED: Vancomycin 1gm in NS 250ml 1 GM/250 ML BAG IVPB SCH (19:00)
[2017-06-16] MEDS ORDERED: cefTRIAXone 2 GM IN NS 2 GM/100 ML BAG IVPB SCH (19:00)
[2017-06-16 19:19] LABS: MAGNESIUM 1.6 mg/dL (1.7-2.2)
[2017-06-16] MEDS ORDERED: Magnesium Sulfate 1 gm in D5W 1 GM/100 ML BAG IVPB ONE (19:56)
--- NOTE | 2017-06-16 19:56 | CP.PCM.CON ---
<Ericka Tapia - Last Filed: 06/16/17 21:16> History of Present Illness - History of Present Illness History of Present Illness: Critical Care Consult note for Dr. Herrera Reason for consult: AMS Please note: history as per medical records as patient is altered 86 year old male PMHx CAD s/p prior bypass surgery and emergency PCI of vein graft to the LAD in 2007, thoracic ascending aneurysm, AV valve replacement, HTN , dyslipidemia, acute diverticulitis, Crohn's disease [stable], BPH, osteoporosis, and arthritis transferred to ICU for AMS s/p cardiac cath. Patient had a cardiac cath this AM that showed severe 3 vessel CAD, severe in- stent and de augusta stenosis of the LAD graft, and significant R coronary artery vein graft disease. Patient had successful PCI of the severe LAD artery graft in -stent restenosis and de augusta lesions. This AM 3 hours after cath patient had an [employer] OF [employer] called for being disoriented, agitated, and for having some slurred speech and possible expressive aphasia. Patient's fingerstick at time of [employer] was 141. As per family, patient was at baseline AO x 3 up until cardiac cath although he did have some slurred speech in the past due to multiple TIAs. Code Stroke was also called on the patient and a head CT was obtained which was negative for acute hemorrhage/infarct. Patient was at first to be on TELE for monitoring however as mentation did not improve patient was transferred to the unit. ROS: unobtainable secondary to clinical condition PMD: Dr. Marie PMHx: CAD s/p prior bypass surgery and emergency PCI of vein graft to the LAD in 2008, thoracic ascending aneurysm, AV valve replacement, HTN, dyslipidemia, acute diverticulitis, Crohn's disease [stable], BPH, osteoporosis, and arthritis Meds: pls see chart ALL: pneumococcal vaccine Review of Systems - Review of Systems Systems not reviewed;Unavailable: Altered Mental Status Past Patient History - Infectious Disease Hx of Infectious Diseases: None - Past Social History Smoking Status: Former Smoker - CARDIAC Hx Cardiac Disorders: Yes (CAB) Other/Comment: Aortic Valve Implant: St. Se. Aortic Aneursym: Arch area - PULMONARY Hx Pneumonia: Yes - NEUROLOGICAL Hx Neurological Disorder: Yes Hx Transient Ischemic Attacks (TIA): Yes - HEENT Hx Cataracts: Yes (b/l removed) - RENAL Hx Chronic Kidney Disease: No - ENDOCRINE/METABOLIC Hx Diabetes Mellitus Type 2: Yes - HEMATOLOGICAL/ONCOLOGICAL Hx Blood Transfusions: No - INTEGUMENTARY Hx Dermatological Problems: No - MUSCULOSKELETAL/RHEUMATOLOGICAL Hx Musculoskeletal Disorders: Yes (laminectomy) Hx Back Pain: Yes Hx Falls: No Hx Fractures: Yes (back) Hx Osteoporosis: Yes (unsure) - GASTROINTESTINAL Hx Crohn's Disease: Yes - GENITOURINARY/GYNECOLOGICAL Hx Prostate Problems: Yes (enlarged) Hx Urinary Tract Infection: Yes (3 UTI) - PSYCHIATRIC Hx Substance Use: No - SURGICAL HISTORY Hx Surgeries: Yes (back sx: 2009) Hx Appendectomy: Yes Hx Cardiac Catheterization: Yes Hx Coronary Stent: Yes (2 SUSHILA today) Hx Musculoskeletal Surgery: Yes (back) Hx Open Heart Surgery: Yes (CAB) Hx Orthopedic Surgery: Yes (back) Hx Valve Replacement: Yes (aortic valve: St . Se) - ANESTHESIA Hx Anesthesia Reactions: No Hx Malignant Hyperthermia: No Meds Allergies/Adverse Reactions: Allergies Allergy/AdvReac Type Severity Reaction Status Date / Time pneumococcal vaccine Allergy Severe RASH Verified 06/14/17 10:57 - Medications Medications: Current Medications Acetaminophen (Tylenol 650 Mg Supp) 650 mg RC Q4H PRN PRN Reason: Fever >100.4 F Aspirin (Aspirin Chewable) 81 mg PO DAILY [facility] Carvedilol (Coreg) 3.125 mg PO BID [facility] Last Admin: 06/16/17 18:39 Dose: Not Given Finasteride (Proscar) 5 mg PO DAILY [facility] Ceftriaxone Sodium (Rocephin 2 Gm Ivpb) 2 gm in 100 mls @ 100 mls/hr IVPB DAILY [facility] PRN Reason: Protocol Last Admin: 06/16/17 19:07 Dose: 100 mls/hr Vancomycin HCl (Vancomycin 1gm) 1 gm in 250 mls @ 167 mls/hr IVPB DAILY [facility] PRN Reason: Protocol Heparin Sodium/Sodium Chloride (Heparin 38081 Units/250ml 1/2 Normal Saline) 25 ,000 units in 250 mls @ 8.001 mls/hr IV .Q24H PRN; Protocol; 12 UNITS/KG/HR PRN Reason: ADJUST RATE PER PROTOCOL Mesalamine (Pentasa) 1,500 mg PO BID [facility] Last Admin: 06/16/17 18:39 Dose: Not Given Tamsulosin HCl (Flomax) 0.4 mg PO DAILY [facility] Physical Exam - Constitutional Appears: Non-toxic, Agitated, Confused Additional comments: limited secondary to patient condition - Head Exam Head Exam: ATRAUMATIC, NORMOCEPHALIC - Eye Exam Eye Exam: Normal appearance, PERRL. absent: Conjunctival injection, Scleral icterus - ENT Exam ENT Exam: Mucous Membranes Moist - Respiratory Exam Respiratory Exam: Clear to Auscultation Bilateral, NORMAL BREATHING PATTERN. absent: Accessory Muscle Use, Rales, Rhonchi, Wheezes, Respiratory Distress - Cardiovascular Exam Cardiovascular Exam: Tachycardia, REGULAR RHYTHM, +S1, +S2 - GI/Abdominal Exam GI & Abdominal Exam: Soft. absent: Firm, Guarding, Tenderness - Extremities Exam Extremities exam: Negative for: pedal edema Additional comments: pressure bandaging at right groin, no bleeding/oozing/hematoma at site noted b/l wrist restraints in place - Back Exam Back exam: NORMAL INSPECTION. absent: rash noted - Neurological Exam Neurological exam: Altered - Psychiatric Exam Psychiatric exam: Agitated, Anxious - Skin Skin Exam: Dry, Intact Results - Vital Signs Recent Vital Signs: Last Vital Signs Temp 102.6 F H 06/16/17 17:21 Pulse 88 06/16/17 17:00 Resp 18 06/16/17 17:00 BP 137/86 06/16/17 17:00 Pulse Ox 99 06/16/17 17:00 - Labs Result Diagrams: 06/16/17 17:58 Labs: Laboratory Results - last 24 hr 06/16/17 06/16/17 06/16/17 07:30 07:30 15:00 PT 13.8 H INR 1.25 H APTT 29.0 Sodium Potassium Chloride Carbon Dioxide Anion Gap BUN Creatinine Est GFR ( Amer) Est GFR (Non-Af Amer) POC Glucose (mg/dL) Random Glucose Lactic Acid Calcium Phosphorus Magnesium Total Bilirubin AST ALT Alkaline Phosphatase Total Protein Albumin Globulin Albumin/Globulin Ratio Triglycerides Cholesterol LDL Cholesterol Direct HDL Cholesterol Free T4 Thyroxine (T4) Total T3 TSH 3rd Generation Urine Color Yellow Urine Appearance Clear Urine pH 7.0 Ur Specific [place] 1.015 Urine Protein 30 H Urine Glucose (UA) Negative Urine Ketones Trace H Urine Blood Moderate H Urine Nitrate Negative Urine Bilirubin Negative Urine Urobilinogen 0.2 Ur Leukocyte Esterase Negative Urine RBC 20 - 25 Urine WBC 0 - 2 Ur Epithelial Cells 0 - 2 Blood Type O POSITIVE Antibody Screen Negative BBK History Checked Patient has bt 06/16/17 06/16/17 06/16/17 17:07 17:58 17:58 PT INR APTT Sodium 136 Potassium 4.4 Chloride 100 Carbon Dioxide 23 Anion Gap 18 BUN 14 Creatinine 0.9 Est GFR ( Amer) > 60 Est GFR (Non-Af Amer) > 60 POC Glucose (mg/dL) 150 H Random Glucose 158 H Lactic Acid Calcium 9.8 Phosphorus 2.3 L Magnesium 1.6 L Total Bilirubin 1.1 AST 41 ALT 28 Alkaline Phosphatase 90 Total Protein 8.8 H Albumin 4.6 Globulin 4.1 Albumin/Globulin Ratio 1.1 Triglycerides 139 Cholesterol 120 L LDL Cholesterol Direct 63 HDL Cholesterol 33 Free T4 1.28 Thyroxine (T4) 10.6 Total T3 1.35 TSH 3rd Generation 0.57 Urine Color Urine Appearance Urine pH Ur Specific [place] Urine Protein Urine Glucose (UA) Urine Ketones Urine Blood Urine Nitrate Urine Bilirubin Urine Urobilinogen Ur Leukocyte Esterase Urine RBC Urine WBC Ur Epithelial Cells Blood Type Antibody Screen BBK History Checked 06/16/17 17:58 PT INR APTT Sodium Potassium Chloride Carbon Dioxide Anion Gap BUN Creatinine Est GFR ( Amer) Est GFR (Non-Af Amer) POC Glucose (mg/dL) Random Glucose Lactic Acid 1.2 Calcium Phosphorus Magnesium Total Bilirubin AST ALT Alkaline Phosphatase Total Protein Albumin Globulin Albumin/Globulin Ratio Triglycerides Cholesterol LDL Cholesterol Direct HDL Cholesterol Free T4 Thyroxine (T4) Total T3 TSH 3rd Generation Urine Color Urine Appearance Urine pH Ur Specific [place] Urine Protein Urine Glucose (UA) Urine Ketones Urine Blood Urine Nitrate Urine Bilirubin Urine Urobilinogen Ur Leukocyte Esterase Urine RBC Urine WBC Ur Epithelial Cells Blood Type Antibody Screen BBK History Checked Assessment & Plan - Assessment and Plan (Free Text) Assessment: 86 year old male PMHx CAD s/p prior bypass surgery and emergency PCI of vein graft to the LAD in 2007, thoracic ascending aneurysm, AV valve replacement, HTN , dyslipidemia, acute diverticulitis, Crohn's disease [stable], BPH, osteoporosis, and arthritis transferred to ICU for AMS s/p cardiac cath. Plan: Neuro - Code Stroke - CT head : neg for acute bleed - repeat CT head in the AM - f/u MRI - f/u carotid and vertebral u/s - f/u RPR, 25OHvit D, folate, b12 - ASA 81mg qd - 1:1 sitter - NPO diet - Speech/Swallow eval - PT/OT - Neuro Dr. Gentile on board Cardio - Cardiac cath 06/16: severe 3 vessel CAD, severe in-stent and de augusta stenosis of the LAD graft, and significant R coronary artery vein graft disease. Patient had successful PCI of the severe LAD artery graft in-stent restenosis and de augusta lesions - Heparin gtt - ASA 81mg po qd - Coreg 3.125mg po bid - f/u lipid panel - Dr. Peterson and Dr. Fuentes on board Respiratory - no acute issues GI - NPO - hx of Crohns - GI ppx Protonix 40mg ivp qd - Pentasa 1500mg po bid Renal - monitor Is and Os - Flomax 0.4mg po qd ID - temp 102.6F - f/u CBC with diff - f/u blood and urine cultures - f/u procalcitonin - f/u repeat lactate - Vanc and Rocephin Heme/Onc Diet: NPO GI ppx: Protonix 40mg ivp qd DVT ppx: Heparin gtt Discussed with Dr. Javier Tapia PGY2 <Randolph Herrera - Last Filed: 06/17/17 01:04> Meds - Medications Medications: Current Medications Acetaminophen (Tylenol 650 Mg Supp) 650 mg RC Q4H PRN PRN Reason: Fever >100.4 F Aspirin (Aspirin Chewable) 81 mg PO DAILY [facility] Carvedilol (Coreg) 3.125 mg PO BID [facility] Last Admin: 06/16/17 18:39 Dose: Not Given Finasteride (Proscar) 5 mg PO DAILY [facility] Ceftriaxone Sodium (Rocephin 2 Gm Ivpb) 2 gm in 100 mls @ 100 mls/hr IVPB DAILY [facility] PRN Reason: Protocol Last Admin: 06/16/17 19:07 Dose: 100 mls/hr Vancomycin HCl (Vancomycin 1gm) 1 gm in 250 mls @ 167 mls/hr IVPB DAILY [facility] PRN Reason: Protocol Last Admin: 06/16/17 22:00 Dose: 167 mls/hr Heparin Sodium/Sodium Chloride (Heparin 42197 Units/250ml 1/2 Normal Saline) 25 ,000 units in 250 mls @ 8.001 mls/hr IV .Q24H PRN; Protocol; 12 UNITS/KG/HR PRN Reason: ADJUST RATE PER PROTOCOL Last Admin: 06/16/17 21:04 Dose: 12 units/kg/hr, 8.001 mls/hr Acetaminophen (Ofirmev) 1,000 mg in 100 mls @ 400 mls/hr IVPB Q6H PRN PRN Reason: Temperature Stop: 06/18/17 20:12 Last Admin: 06/16/17 21:12 Dose: 400 mls/hr Potassium Phosphate 15 mmole/ (Sodium Chloride) 255 mls @ 42.5 mls/hr IVPB ONCE ONE Stop: 06/17/17 02:59 Last Admin: 06/16/17 23:00 Dose: 42.5 mls/hr Sodium Chloride (Sodium Chloride 0.9%) 1,000 mls @ 100 mls/hr IV .Q10H [facility] Mesalamine (Pentasa) 1,500 mg PO BID [facility] Last Admin: 06/16/17 18:39 Dose: Not Given Pantoprazole Sodium (Protonix Inj) 40 mg IVP DAILY [facility] Tamsulosin HCl (Flomax) 0.4 mg PO DAILY [facility] Results - Vital Signs Recent Vital Signs: Last Vital Signs Temp 102.6 F H 06/16/17 23:29 Pulse 102 H 06/16/17 22:10 Resp 24 06/16/17 22:10 BP 153/65 H 06/16/17 22:00 Pulse Ox 76 L 06/16/17 21:40 - Labs Result Diagrams: 06/16/17 21:05 06/16/17 17:58 Labs: Laboratory Results - last 24 hr 06/16/17 06/16/17 06/16/17 07:30 07:30 15:00 WBC RBC Hgb Hct MCV MCH MCHC RDW Plt Count MPV Gran % Lymph % (Auto) [place] % (Auto) Eos % (Auto) Baso % (Auto) Gran # Lymph # [place] # Eos # Baso # PT 13.8 H INR 1.25 H APTT 29.0 Sodium Potassium Chloride Carbon Dioxide Anion Gap BUN Creatinine Est GFR ( Amer) Est GFR (Non-Af Amer) POC Glucose (mg/dL) Random Glucose Lactic Acid Calcium Phosphorus Magnesium Total Bilirubin AST ALT Alkaline Phosphatase Total Protein Albumin Globulin Albumin/Globulin Ratio Triglycerides Cholesterol LDL Cholesterol Direct HDL Cholesterol Free T4 Thyroxine (T4) Total T3 TSH 3rd Generation Urine Color Yellow Urine Appearance Clear Urine pH 7.0 Ur Specific [place] 1.015 Urine Protein 30 H Urine Glucose (UA) Negative Urine Ketones Trace H Urine Blood Moderate H Urine Nitrate Negative Urine Bilirubin Negative Urine Urobilinogen 0.2 Ur Leukocyte Esterase Negative Urine RBC 20 - 25 Urine WBC 0 - 2 Ur Epithelial Cells 0 - 2 Blood Type O POSITIVE Antibody Screen Negative BBK History Checked Patient has bt 06/16/17 06/16/17 06/16/17 17:07 17:58 17:58 WBC RBC Hgb Hct MCV MCH MCHC RDW Plt Count MPV Gran % Lymph % (Auto) [place] % (Auto) Eos % (Auto) Baso % (Auto) Gran # Lymph # [place] # Eos # Baso # PT INR APTT Sodium 136 Potassium 4.4 Chloride 100 Carbon Dioxide 23 Anion Gap 18 BUN 14 Creatinine 0.9 Est GFR ( Amer) > 60 Est GFR (Non-Af Amer) > 60 POC Glucose (mg/dL) 150 H Random Glucose 158 H Lactic Acid Calcium 9.8 Phosphorus 2.3 L Magnesium 1.6 L Total Bilirubin 1.1 AST 41 ALT 28 Alkaline Phosphatase 90 Total Protein 8.8 H Albumin 4.6 Globulin 4.1 Albumin/Globulin Ratio 1.1 Triglycerides 139 Cholesterol 120 L LDL Cholesterol Direct 63 HDL Cholesterol 33 Free T4 1.28 Thyroxine (T4) 10.6 Total T3 1.35 TSH 3rd Generation 0.57 Urine Color Urine Appearance Urine pH Ur Specific [place] Urine Protein Urine Glucose (UA) Urine Ketones Urine Blood Urine Nitrate Urine Bilirubin Urine Urobilinogen Ur Leukocyte Esterase Urine RBC Urine WBC Ur Epithelial Cells Blood Type Antibody Screen BBK History Checked 06/16/17 06/16/17 06/16/17 17:58 21:05 21:50 WBC 13.0 H RBC 4.68 Hgb 13.3 L Hct 41.3 L MCV 88.2 MCH 28.4 MCHC 32.2 RDW 15.9 H Plt Count 218 MPV 9.6 Gran % 81.5 H Lymph % (Auto) 13.0 L [place] % (Auto) 5.2 Eos % (Auto) 0.1 L Baso % (Auto) 0.2 Gran # 10.58 H Lymph # 1.7 [place] # 0.7 H Eos # 0.0 Baso # 0.02 PT INR APTT Sodium Potassium Chloride Carbon Dioxide Anion Gap BUN Creatinine Est GFR ( Amer) Est GFR (Non-Af Amer) POC Glucose (mg/dL) Random Glucose Lactic Acid 1.2 2.3 H Calcium Phosphorus Magnesium Total Bilirubin AST ALT Alkaline Phosphatase Total Protein Albumin Globulin Albumin/Globulin Ratio Triglycerides Cholesterol LDL Cholesterol Direct HDL Cholesterol Free T4 Thyroxine (T4) Total T3 TSH 3rd Generation Urine Color Urine Appearance Urine pH Ur Specific [place] Urine Protein Urine Glucose (UA) Urine Ketones Urine Blood Urine Nitrate Urine Bilirubin Urine Urobilinogen Ur Leukocyte Esterase Urine RBC Urine WBC Ur Epithelial Cells Blood Type Antibody Screen BBK History Checked 06/16/17 06/16/17 22:18 23:27 WBC RBC Hgb Hct MCV MCH MCHC RDW Plt Count MPV Gran % Lymph % (Auto) [place] % (Auto) Eos % (Auto) Baso % (Auto) Gran # Lymph # [place] # Eos # Baso # PT INR APTT 36.9 H Sodium Potassium Chloride Carbon Dioxide Anion Gap BUN Creatinine Est GFR ( Amer) Est GFR (Non-Af Amer) POC Glucose (mg/dL) 145 H Random Glucose Lactic Acid Calcium Phosphorus Magnesium Total Bilirubin AST ALT Alkaline Phosphatase Total Protein Albumin Globulin Albumin/Globulin Ratio Triglycerides Cholesterol LDL Cholesterol Direct HDL Cholesterol Free T4 Thyroxine (T4) Total T3 TSH 3rd Generation Urine Color Urine Appearance Urine pH Ur Specific [place] Urine Protein Urine Glucose (UA) Urine Ketones Urine Blood Urine Nitrate Urine Bilirubin Urine Urobilinogen Ur Leukocyte Esterase Urine RBC Urine WBC Ur Epithelial Cells Blood Type Antibody Screen BBK History Checked Attending/Attestation - Attestation I have personally seen and examined this patient.: Yes I have fully participated in the care of the patient.: Yes I have reviewed all pertinent clinical information: Yes Notes (Text): 06/17/17 00:14 Patient was seen in [facility]. Agree with note. Patient has been confused , not following commands, right nasolabial fold is prominent.
[2017-06-16] MEDS ORDERED: Potassium Phosphate 3 mmol/ml Inj IV ONE (20:00)
[2017-06-16] MEDS ORDERED: Potassium Phosphate 15 MMOLE in Sodium Chloride 0.9% 250 ML IVPB ONE (21:00)
[2017-06-16] MEDS: Heparin25000 units/250ml 1/2NS 25,000 UNITS/250 ML BAG IV PRN (21:04)
[2017-06-16 21:51] LABS: BASO # 0.02 K/mm3 (0.0-2.0); BASO % 0.2 % (0.0-3.0); EOS % 0.1 % (1.5-5.0); GRAN # 10.58 (1.4-6.5); GRAN % 81.5 % (50.0-68.0); HEMOGLOBIN 13.3 g/dL (14.0-18.0); LYMPH # 1.7 (1.2-3.4); MEAN CELL VOLUME 88.2 fl (80.0-105.0); MEAN CORPUSCULAR HEMOGLOBIN 28.4 pg (25.0-35.0); MEAN CORPUSCULAR HGB CONC 32.2 g/dl (31.0-37.0); MEAN PLATELET VOLUME 9.6 fl (7.0-11.0); MONO # 0.7 (0.1-0.6); MONO % 5.2 % (1.0-6.0); RBC 4.68 10^6/uL (3.5-6.1); RED CELL DISTRIBUTION WIDTH 15.9 % (11.5-14.5)
--- NOTE | 2017-06-17 02:10 | CON ---
DATE: HISTORY OF PRESENT ILLNESS: This is an 86-year-old male who came to the hospital and had a cardiac cath and after the procedure became confused and delirious and agitated and also was slurring of the speech, and called to evaluate the patient. CAT scan of the head was done, which was reported negative and the patient becomes more combative and now also having high fever and called Neurology consult. Coronary artery disease and the patient had stents and high blood pressure, so called to evaluate the patient. PAST MEDICAL HISTORY: As above. SOCIAL HISTORY: Does not smoke. Does not drink. Family at the bedside. PHYSICAL EXAMINATION: NEUROLOGIC: The patient is very confused and delirious and slurred speech. Does not follow any simple commands, but moves spontaneously all the extremities. Deep tendon reflexes are 1+. Both plantars are downgoing. Sensory appears intact. Cerebellar and gait deferred. IMPRESSION AND PLAN: Delirium possibly secondary to anesthetics, possibly transient ischemic attack versus possibility of embolic stroke though less likely and following stent. CAT scan of the head was reported negative. We are going to repeat the CAT scan in the morning and take care of his agitation. Workup in progress. I spoke to Dr. Fuentes, explained the whole situation of the patient and also spoke in detail with the family. We will repeat the CAT scan in the morning. Wagner Gentile MD
[2017-06-17 07:15] LABS: ALT/SGPT 24 U/L (7-56); AST/SGOT 41 U/L (17-59); BLOOD UREA NITROGEN 14 mg/dL (7-21); CALCIUM 9.2 mg/dL (8.4-10.5); GFR AFRICAN-AMERICAN > 60; GFR NON-AFRICAN AMERICAN > 60; MAGNESIUM 1.8 mg/dL (1.7-2.2)
[2017-06-17 07:21] LABS: BASO # 0.02 K/mm3 (0.0-2.0); BASO % 0.2 % (0.0-3.0); EOS % 0.2 % (1.5-5.0); GRAN # 8.08 (1.4-6.5); GRAN % 66.2 % (50.0-68.0); HEMOGLOBIN 12.7 g/dL (14.0-18.0); LYMPH # 2.6 (1.2-3.4); LYMPH % 21.2 % (22.0-35.0); MEAN CELL VOLUME 86.3 fl (80.0-105.0); MEAN CORPUSCULAR HEMOGLOBIN 28.5 pg (25.0-35.0); MEAN CORPUSCULAR HGB CONC 33.1 g/dl (31.0-37.0); MEAN PLATELET VOLUME 9.9 fl (7.0-11.0); MONO # 1.5 (0.1-0.6); MONO % 12.2 % (1.0-6.0); RBC 4.45 10^6/uL (3.5-6.1); RED CELL DISTRIBUTION WIDTH 16.1 % (11.5-14.5); WHITE BLOOD COUNT 12.2 10^3/ul (4.5-11.0)
[2017-06-17 07:34] LABS: INR 1.36 (0.93-1.08); PARTIAL THROMBOPLASTIN TIME 51.2 Seconds (25.1-36.5); PROTHROMBIN TIME 15.1 SECONDS (9.4-12.5)
[2017-06-17] MEDS ORDERED: Piperacillin/Tazobact 3.375 gm 100 ML IV SCH (08:00)
--- NOTE | 2017-06-17 08:17 | CP.PCM.PN ---
Subjective - Date & Time of Evaluation Date of Evaluation: 06/17/17 Time of Evaluation: 07:00 - Subjective Subjective: Events of yesterday noted. I spent ~ 3 hours at his bedside following cath/PCI yesterday b/o AMS with difficulty speaking and int agitation, etc, R/O Stroke vs anaesthetic reaction, etc. He did not respond to reversal of Versed. A CT did not show new stroke. He developed fever as well. He was transferred to the ICU for monitoring with plans for a f/u CT Head this AM. Dr. Gentile said it was Ok to heparinize him (for his St Se AVR) and includes Delerium and Acute Stroke in DDX. During this period I have spoken with Dr. Peterson, both Drs. Gentile, his daughter, Dr. Thompson, Dr. Ramírez and his bedside nurses extensively. Today he remains febrile with difficulty speaking. He slept for a few hours. V/S note. T = 102. RSR Lungs: clear Cor. S1S2 Abd.: soft Ext.: no edema Neuro.: difficult speaking, int agitation when touched. Labs noted: WBC 12,200, PTT= 51.2, BMP OK, Mg++= 1.8, LA=1.0, etc. ECG 06/16/17: RSR, ASMI, STTW changes. No change. Objective - Vital Signs/Intake and Output Vital Signs (last 24 hours): Temp Pulse Resp BP Pulse Ox 101.6 F H 98 H 23 124/76 76 L 06/17/17 03:07 06/17/17 03:00 06/17/17 03:00 06/17/17 02:00 06/16/17 21:40 Intake and Output: 06/17/17 06/17/17 06:59 18:59 Intake Total 25 Balance 25 - Medications Medications: Current Medications Acetaminophen (Tylenol 650 Mg Supp) 650 mg RC Q4H PRN PRN Reason: Fever >100.4 F Aspirin (Aspirin Chewable) 81 mg PO DAILY [facility] Carvedilol (Coreg) 3.125 mg PO BID [facility] Last Admin: 06/16/17 18:39 Dose: Not Given Finasteride (Proscar) 5 mg PO DAILY [facility] Vancomycin HCl (Vancomycin 1gm) 1 gm in 250 mls @ 167 mls/hr IVPB DAILY [facility] PRN Reason: Protocol Last Admin: 06/16/17 22:00 Dose: 167 mls/hr Heparin Sodium/Sodium Chloride (Heparin 74235 Units/250ml 1/2 Normal Saline) 25 ,000 units in 250 mls @ 8.001 mls/hr IV .Q24H PRN; Protocol; 12 UNITS/KG/HR PRN Reason: ADJUST RATE PER PROTOCOL Last Titration: 06/16/17 23:00 Dose: 14 units/kg/hr, 9.335 mls/hr Acetaminophen (Ofirmev) 1,000 mg in 100 mls @ 400 mls/hr IVPB Q6H PRN PRN Reason: Temperature Stop: 06/18/17 20:12 Last Admin: 06/17/17 03:15 Dose: 400 mls/hr Sodium Chloride (Sodium Chloride 0.9%) 1,000 mls @ 100 mls/hr IV .Q10H [facility] Last Admin: 06/17/17 00:00 Dose: 100 mls/hr Piperacillin Sod/Tazobactam Sod (Zosyn 3.375 In Ns 100ml) 100 mls @ 200 mls/hr IV Q6H [facility] PRN Reason: Protocol Mesalamine (Pentasa) 1,500 mg PO BID [facility] Last Admin: 06/16/17 18:39 Dose: Not Given Pantoprazole Sodium (Protonix Inj) 40 mg IVP DAILY [facility] Quetiapine Fumarate (Seroquel) 50 mg PO HS [facility] PRN Reason: Protocol Tamsulosin HCl (Flomax) 0.4 mg PO DAILY [facility] - Labs Labs: 06/17/17 06:40 06/17/17 06:40 PT 15.1 SECONDS (9.4-12.5) H 06/17/17 06:40 INR 1.36 (0.93-1.08) H 06/17/17 06:40 APTT 51.2 Seconds (25.1-36.5) H 06/17/17 06:40 Assessment and Plan - Assessment and Plan (Free Text) Assessment: AMS/Difficult Speaking S/P PCI procedure Fever Limiting exertional chest and left arm pain with + nuclear stress test. CAD/CABG/AVR with PCI of SVBG to LAD/Diag. 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 F/U Heparin for AVR if OK with Neuro.
[2017-06-17 09:10] LABS: HDL CHOLESTEROL 32 mg/dL (29-60)
[2017-06-17 09:21] LABS: LDL CHOLESTEROL 69 mg/dL (0-129)
--- NOTE | 2017-06-17 09:49 | CT ---
PROCEDURE: CT HEAD WITHOUT CONTRAST. HISTORY: repeat head CT, suspected stroke COMPARISON: June 15, 2017. TECHNIQUE: Axial computed tomography images were obtained through the head/brain without intravenous contrast. Radiation dose: Total exam DLP = 952.52 mGy-cm. This CT exam was performed using one or more of the following dose reduction techniques: Automated exposure control, adjustment of the mA and/or kV according to patient size, and/or use of iterative reconstruction technique. FINDINGS: HEMORRHAGE: No intracranial hemorrhage. BRAIN: No mass effect or edema. 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 VENTRICLES: Unremarkable. No hydrocephalus. CALVARIUM: Unremarkable. PARANASAL SINUSES: Unremarkable as visualized. No significant inflammatory changes. MASTOID AIR CELLS: Unremarkable as visualized. No inflammatory changes. OTHER FINDINGS: None. IMPRESSION: No acute intracranial abnormalities. No significant findings to account for the clinical presentation. BMD changes compared to the prior study
--- NOTE | 2017-06-17 09:58 | CT ---
PROCEDURE: CT Abdomen and Pelvis without intravenous contrast HISTORY: Fever, leukocytosis common delirium Relevant medical history: Ulcerative colitis COMPARISON: 03/01/2016 TECHNIQUE: Unenhanced study. Oral contrast was not administered thus limiting sensitivity and specificity for inflammatory bowel disease. Radiation dose: Total exam DLP = 671.22 mGy-cm. This CT exam was performed using one or more of the following dose reduction techniques: Automated exposure control, adjustment of the mA and/or kV according to patient size, and/or use of iterative reconstruction technique. FINDINGS: LOWER THORAX: Unremarkable. LIVER: Unremarkable. No gross lesion or ductal dilatation. GALLBLADDER AND BILE DUCTS: Cholelithiasis without CT evidence of acute cholecystitis. Contrast in the gallbladder, vicarious excretion related to prior catheterization. PANCREAS: Unremarkable. No gross lesion or ductal dilatation. SPLEEN: Unremarkable. ADRENALS: Unremarkable. No mass. KIDNEYS AND URETERS: Unremarkable. No hydronephrosis. No solid mass. Unremarkable contrast-enhancing kidneys without focal or diffuse abnormality. VASCULATURE: Unremarkable. No aortic aneurysm. BOWEL: Abnormal appearing ileum compatible with inflammatory bowel disease. This extends to the ileocecal valve region. This affects the entire ileum and portions of the jejunum. There is no evidence of mechanical obstruction. Diverticulosis without an acute inflammatory component or other associated pathologic process. . Incidental finding(s): Small tube, catheter within the rectum. APPENDIX: Unremarkable. Normal appendix. PERITONEUM: Unremarkable. No free fluid. No free air. LYMPH NODES: Unremarkable. No enlarged lymph nodes. BLADDER: Multiple small bladder diverticular. None appear larger than 1.5 cm. Contrast in the urinary bladder related to prior cardiac catheterization performed June 16, 2017. REPRODUCTIVE: Markedly enlarged prostate on sagittal images measuring 6.1 x 7.1 cm. BONES: No acute fracture. Stable T12 vertebral body compression fracture. Stable findings related to lumbar kyphoplasty -L5. Scoliosis, secondary degenerative change at multiple levels. OTHER FINDINGS: Post catheterization findings in the right inguinal region. IMPRESSION: Findings in the small bowel affecting distal jejunum and ileum compatible with inflammatory bowel disease. No evidence of mechanical obstruction. Cholelithiasis without CT evidence of acute cholecystitis. Distended gallbladder. Additional benign and/or incidental findings described above.
[2017-06-17] MEDS: Mesalamine ER Cap 500 MG PO SCH ×2 (10:00→17:18)
[2017-06-17] MEDS: Vancomycin 1gm in NS 250ml 1 GM/250 ML BAG IVPB SCH ×2 (11:17→23:25)
[2017-06-17] MEDS: Sodium Chloride 0.9% 1,000 ML IV SCH ×3 (11:19→21:00)
[2017-06-17] MEDS: Meropenem IV 1 gm in NS 50 ML IVPB SCH ×3 (11:49→22:24)
[2017-06-17 13:24] LABS: FOLATE > 20.0 ng/mL
--- NOTE | 2017-06-17 13:25 | RAD ---
HISTORY: Pneumonia COMPARISON: 04/11/2017 FINDINGS: LUNGS: No active pulmonary disease. PLEURA: No significant pleural effusion identified, no pneumothorax apparent. CARDIOVASCULAR: No radiographic findings to suggest acute or significant cardiovascular disease. Incidental Finding(s): Postoperative changes related to sternotomy. OSSEOUS STRUCTURES: No significant abnormalities. VISUALIZED UPPER ABDOMEN: Normal. OTHER FINDINGS: None. IMPRESSION: No active disease. No significant interval change compared to the prior examination(s). Limitations of the current examination: Rotation and portable technique accentuates markings in the left robert thorax.
--- NOTE | 2017-06-17 17:56 | CON ---
DATE: 06/17/2017 HISTORY OF PRESENT ILLNESS: This is an 86-year-old gentleman with history of coronary artery disease, status post coronary artery bypass surgery and emergent PCI of vein graft to the LAD in 2007, thoracic aortic aneurysm, AV valve replacement, history of Crohn's disease, and acute diverticulitis who was admitted to ICU last night after acute change in his mental status post cardiac catheterization. During cardiac catheterization, he was found to have severe three-vessel coronary artery disease, severe in-stent and de augusta stenosis of the LAD graft. He had significant right coronary artery vein graft disease. The patient had successful PCI of the severe LAD and artery graft in-stent restenosis and de augusta lesions. Shortly afterward, the patient became disoriented, confused, and agitated as well as febrile. Mild leukocytosis was also found. The patient initially was admitted to telemetry; however, his mental status deteriorated, and he was transferred to ICU for further management and monitoring. Initial CAT scan did not reveal any acute intracranial pathology, and today CAT scan of the head will be repeated. I will also add abdominal and pelvic CAT scan without p.o. or IV contrast to see if he has acute intra-abdominal pathology for infection that accounts for fever and leukocytosis. PAST MEDICAL HISTORY: Coronary artery disease, hypertension, ascending thoracic aortic aneurysm repair, AV valve replacement, dyslipidemia, acute diverticulitis, Crohn's disease, osteoporosis, BPH, arthritis. HOME MEDICATIONS: Metformin, Flomax, Zocor, Pentasa, Coreg, vitamin D with calcium, aspirin, warfarin, Proscar. FAMILY HISTORY: Noncontributory. SOCIAL HISTORY: The patient is a smoker. Social alcohol use. No illicit drug abuse. ALLERGIES: PNEUMOCOCCAL VACCINE. REVIEW OF SYSTEMS: Review of 12-point organ system other than mentioned in history of present illness is negative. The patient did not have nausea, vomiting, diarrhea, or constipation. PHYSICAL EXAMINATION: VITAL SIGNS: Heart rate 90, blood pressure 126/58, oxygen saturation 97% on room air, respiratory rate 25. ENT: Head and neck atraumatic. LUNGS: Clear to auscultation bilaterally. HEART: Regular rate and rhythm. S1 an S2 normal. ABDOMEN: Soft, nontender, and nondistended. EXTREMITIES: No C/C/E. NEURO: The patient moves all extremities spontaneously. SKIN: Moist. PSYCH: The patient is alert, disoriented, confused, and agitated. 10 mg of Geodon IM was given. LABORATORY DATA: WBC 12.2, hemoglobin 12.7, platelet count 234. Sodium 135, potassium 4, chloride 99, carbon dioxide 24, BUN 14, creatinine 1, glucose 132, lactic acid 1, AST 41, ALT 24, total bilirubin 1, alkaline phosphatase 71, PTT 51.2. MEDICATIONS IN THE HOSPITAL: Tylenol p.r.n., aspirin, Coreg, Proscar, heparin drip, mesalamine, Protonix, Seroquel 50 mg p.o. at bedtime, normal saline 100 cc/hour, vancomycin, Geodon was given, Zosyn. ASSESSMENT: This is a 86-year-old gentleman who developed fever and altered mental status shortly after cardiac catheterization with two stents placed. Both of his lower extremities are warm, and he is moving them without any deficit; however, he is noncooperative, confused, and disoriented and thus unable to provide more details. I am concerned about ensuing sepsis and provided the patient had a history of Crohn's disease diverticulitis, I will proceed with abdominal CAT scan and chest x-ray. Blood and urine culture were sent. Procalcitonin was sent. I will broaden his antibiotic coverage to Zosyn and continue vancomycin. ID service consult is pending. The patient will also get CT of the head to rule out evolving infarct. Of note, his initial CAT scan of the head was negative. Possibility of alcohol withdrawal might be present; however, usually it is not associated with very high fever and besides family denies history of binge drinking. We will continue to target euvolemia, euglycemia and 02sat> 90%. We will continue with normal saline 100 cc/hour. We will continue with GI prophylaxis and therapeutic anticoagulation with heparin. Addendum: CT showed small intestines changes consistent with Crohn's disease and dilated GB. HIDA scan is negative for acute cholecystitis. ccm time 40 min Fred Devlin MD [facility]
[2017-06-17] MEDS: Heparin25000 units/250ml 1/2NS 25,000 UNITS/250 ML BAG IV PRN (23:04)
--- NOTE | 2017-06-17 23:27 | CON ---
DATE: 06/17/2017 SUBJECTIVE: The patient is in ICU 128, bed 6. CHIEF COMPLAINT: Fever and change in mental status x1 day. HISTORY OF PRESENT ILLNESS: This is an 87-year-old male with history of coronary artery disease, myocardial infarction, aortic aneurysm, BPH, Crohn's disease, TIA, history of [facility] aortic valve replacement and coronary artery bypass graft and a hemorrhoidectomy, was having arm pain as an outpatient, was admitted for an elective cardiac cath. The patient had the cardiac cath at 09:20 yesterday morning, 06/16/2017 and just hours later, he had a temperature of 102.6 and he was having change in mental status. Infectious disease consultation requested today. REVIEW OF SYSTEMS: Reveals the patient is confused at this time. The patient's daughter is at the bedside. His is at the bedside who states that the patient was completely baseline prior to the procedure. He did not have any fevers at home. No chest pain, shortness of breath. He did have arm pain which prompted the cardiac catheterization. No abdominal pain, diarrhea, or constipation. No dysuria or frequency. At this point, he is confused. He has a temperature of 102, unable to give any history. PAST MEDICAL HISTORY: Significant for coronary artery disease, myocardial infarction, aortic aneurysm, BPH, Crohn's disease, TIA. PAST SURGICAL HISTORY: Significant for [facility] aortic valve replacement in 1984 and coronary artery bypass graft and hemorrhoidectomy. ALLERGIES: THE PATIENT IS ALLERGIC TO PNEUMOCOCCAL VACCINE. MEDICATIONS: At home include Glucophage, Flomax, and some other statin which is Zocor and mesalamine, carvedilol, calcium carbonate, vitamin D, aspirin, Coumadin, and Proscar. PHYSICAL EXAMINATION: GENERAL: He is in bed and he is confused. VITAL SIGNS: He has a temperature of 102.6, respiratory rate of 30, heart rate of 91. The patient's blood pressure is 140/60. HEENT: Examination of HEENT is unremarkable. NECK: Supple. LUNGS: Decreased breath sounds heard bilaterally. HEART: Normal S1, S2. ABDOMEN: Soft, nontender. No rebound. No guarding. No masses. : Clean. LABORATORY EXAMINATION: Reveals a white count of 13,000, hemoglobin of 13, platelets of 218; 81% granulocytosis. Coagulation is noted. Chemistries reveal the patient has a BUN of 14, creatinine of 1.0. The LFT is normal, the alk phos is normal, and urinalysis reveals 0 to 2 wbc's. Microbiology of the urine cultures, no growth. The blood cultures are pending. The patient had a chest x-ray, which no results are available. The patient had a CAT scan of the abdomen and pelvis and a CAT scan of the head. The CAT scan of the head, there is no bleed. CT scan abdomen and pelvis shows a distended gallbladder, cholelithiasis without evidence of acute cholecystitis and lower thorax is unremarkable. ASSESSMENT/PLAN: An 87-year-old male with coronary artery disease, myocardial infarction, aortic aneurysm, BPH, coronary artery disease, TIA with status post cardiac catheterization, postprocedure day #1, with fever and tachycardia and dyspnea. Systemic inflammatory response syndrome, rule out healthcare-associated aspiration pneumonia, most likely the patient had aspiration pneumonia during the procedure, and we will treat the patient with vancomycin, meropenem. Case discussed with Dr. Devlin. Gallbladder is a possible source. Also, the patient will get a HIDA scan, and we will check on the blood cultures, prosthetic valve infection is also in the differential, less likely. Statistically, the story is more consistent with probable sepsis with a post-aspiration pneumonia post cardiac catheterization with a fever explaining the change in mental status pending panculture of blood, urine, sputum culture results, procalcitonin. We will start the patient empirically on vancomycin and meropenem, and we will follow closely with you. Case discussed with the patient's at length and the patient's daughter at length, and we will follow with you. Rohan Gautam MD
--- NOTE | 2017-06-18 01:41 | CON ---
DATE: HISTORY OF PRESENT ILLNESS: This is an 86-year-old while male who post cath procedure became delirious and slurring of the speech, and CAT scan of the head was done, which was reported negative and patient has a dysarthric speech, does not make sense, possibly aphasic and repeat CAT scan of the head was done, which did not show any infarct or bleed. PHYSICAL EXAMINATION: GENERAL: He is awake, confused, family at bedside. HEENT: Pupils reactive. EOMs intact. NEUROLOGIC: Spontaneous movement of all the extremities noted. Deep tendon reflexes 1+. Both plantars are downgoing. Sensory appears intact. Cerebellar and gait deferred. ASSESSMENT: Discussed with Dr. Fuentes and continue present management and his fever is possibly secondary to aspiration pneumonia and ID, Dr. Gautam is on the case. Wagner Gentile MD
[2017-06-18 03:45] LABS: BASO # 0.04 K/mm3 (0.0-2.0); BASO % 0.3 % (0.0-3.0); EOS % 0.3 % (1.5-5.0); GRAN # 10.3 (1.4-6.5); HEMOGLOBIN 12.4 g/dL (14.0-18.0); LYMPH # 2.8 (1.2-3.4); LYMPH % 19.1 % (22.0-35.0); MEAN CELL VOLUME 86.1 fl (80.0-105.0); MEAN CORPUSCULAR HEMOGLOBIN 28.6 pg (25.0-35.0); MEAN CORPUSCULAR HGB CONC 33.2 g/dl (31.0-37.0); MEAN PLATELET VOLUME 9.6 fl (7.0-11.0); MONO # 1.5 (0.1-0.6); MONO % 10.3 % (1.0-6.0); RBC 4.33 10^6/uL (3.5-6.1); RED CELL DISTRIBUTION WIDTH 15.9 % (11.5-14.5); WHITE BLOOD COUNT 14.7 10^3/ul (4.5-11.0)
[2017-06-18 03:59] LABS: ALB/GLOB RATIO 1.1 (1.1-1.8); ALBUMIN 3.9 g/dL (3.0-4.8); ALT/SGPT 30 U/L (7-56); AST/SGOT 54 U/L (17-59); BLOOD UREA NITROGEN 13 mg/dL (7-21); CALCIUM 9.2 mg/dL (8.4-10.5); GFR AFRICAN-AMERICAN > 60; GFR NON-AFRICAN AMERICAN > 60; MAGNESIUM 1.8 mg/dL (1.7-2.2)
[2017-06-18 04:00] LABS: INR 1.39 (0.93-1.08); PROTHROMBIN TIME 15.3 SECONDS (9.4-12.5)
[2017-06-18] MEDS: Meropenem IV 1 gm in NS 50 ML IVPB SCH ×3 (06:30→22:00)
--- NOTE | 2017-06-18 08:04 | CP.PCM.PN ---
Subjective - Date & Time of Evaluation Date of Evaluation: 06/18/17 Time of Evaluation: 07:00 - Subjective Subjective: Stablein CCU. Not much change in speech but less agitation reported. Still febrile. V/S noted. T = 100 - 102. RSR Lungs: clear Cor. S1S2 Abd.: soft Ext.: no edema Neuro.: difficult speaking. I/O= 3017/950 Labs noted: WBC 14,700, PTT= 64, CMP OK. Proc.: < 0.05 ECG 06/16/17: RSR, ASMI, STTW changes. No change. 2nd CT Head noted: No acute CVA or bleed. CT A/P noted: Gallstones, Inflam bowel findings, etc. See report. HIDA Scan pending. Objective - Vital Signs/Intake and Output Vital Signs (last 24 hours): Temp Pulse Resp BP Pulse Ox 100.8 F H 73 35 H 161/70 H 100 06/18/17 04:00 06/18/17 06:50 06/18/17 06:50 06/18/17 06:00 06/18/17 06:50 Intake and Output: 06/18/17 06/18/17 06:59 18:59 Intake Total 1577 Output Total 400 Balance 1177 - Medications Medications: Current Medications Aspirin (Aspirin Chewable) 81 mg PO DAILY [facility] Last Admin: 06/17/17 12:28 Dose: Not Given Aspirin (Aspirin Supp) 300 mg RC DAILY [facility] Last Admin: 06/17/17 10:16 Dose: 300 mg Carvedilol (Coreg) 3.125 mg PO BID [facility] Last Admin: 06/17/17 17:18 Dose: Not Given Clopidogrel Bisulfate (Plavix) 75 mg PO DAILY [facility] Last Admin: 06/17/17 10:00 Dose: Not Given Finasteride (Proscar) 5 mg PO DAILY [facility] Last Admin: 06/17/17 10:00 Dose: Not Given Heparin Sodium/Sodium Chloride (Heparin 53706 Units/250ml 1/2 Normal Saline) 25 ,000 units in 250 mls @ 8.001 mls/hr IV .Q24H PRN; Protocol; 12 UNITS/KG/HR PRN Reason: ADJUST RATE PER PROTOCOL Last Admin: 06/17/17 23:04 Dose: 14 units/kg/hr, 9.335 mls/hr Acetaminophen (Ofirmev) 1,000 mg in 100 mls @ 400 mls/hr IVPB Q6H PRN PRN Reason: Temperature Stop: 06/18/17 20:12 Last Admin: 06/18/17 06:59 Dose: 400 mls/hr Sodium Chloride (Sodium Chloride 0.9%) 1,000 mls @ 100 mls/hr IV .Q10H SUSANNA Last Admin: 06/17/17 21:00 Dose: 100 mls/hr Meropenem (Merrem Iv 1 Gm Premix) 50 mls @ 100 mls/hr IVPB Q8 SUSANNA PRN Reason: Protocol Stop: 06/26/17 10:46 Last Admin: 06/18/17 06:30 Dose: 100 mls/hr Vancomycin HCl (Vancomycin 1gm) 1 gm in 250 mls @ 167 mls/hr IVPB Q12H SUSANNA PRN Reason: Protocol Stop: 06/26/17 10:46 Last Admin: 06/17/17 23:25 Dose: 167 mls/hr Mesalamine (Pentasa) 1,500 mg PO BID [facility] Last Admin: 06/17/17 17:18 Dose: Not Given Pantoprazole Sodium (Protonix Inj) 40 mg IVP DAILY [facility] Last Admin: 06/17/17 10:15 Dose: 40 mg Quetiapine Fumarate (Seroquel) 50 mg PO HS SUSANNA PRN Reason: Protocol Last Admin: 06/17/17 22:52 Dose: Not Given Tamsulosin HCl (Flomax) 0.4 mg PO DAILY [facility] Last Admin: 06/17/17 10:00 Dose: Not Given - Labs Labs: 06/18/17 03:30 06/18/17 03:30 PT 15.3 SECONDS (9.4-12.5) H 06/18/17 03:30 INR 1.39 (0.93-1.08) H 06/18/17 03:30 APTT 64.4 Seconds (25.1-36.5) H 06/18/17 03:30 Assessment and Plan - Assessment and Plan (Free Text) Assessment: AMS/Difficult Speaking S/P PCI procedure Fever Limiting exertional chest and left arm pain with + nuclear stress test. CAD/CABG/AVR with PCI of SVBG to LAD/Diag. 06/16/17 Remote TX Chronic A/C for AVR H/O TIA's H/O speech problems with prior sepsis TIA's TAA ( ~ 5.3 cms) Crohn's Disease BPH Osteoporosis Spinal Surgery Plan: ICU monitoring As per Neuro., ID, Intensivists AB coverage. Check cultures. Check HIDA scan results Heparin for AVR if OK with Neuro. Monitor PTT's ASA MI for new stent Swallowing Eval: If OK give PO Plavix for new stent.
--- NOTE | 2017-06-18 08:15 | NM ---
PROCEDURE: Nuclear Medicine Hepatobiliary Scan HISTORY: acute cholecystitis COMPARISON: 06/17/2017 CT abdomen TECHNIQUE: And pelvis 7.2 mCi of technetium 99m Mebrofenin was administered intravenously. Planar images of the abdomen were obtained at 5 min intervals to 60 mins. Delayed images were also obtained. FINDINGS: LIVER: Timely and homogenous uptake. COMMON BILE DUCT: identified at 15 mins. GALLBLADDER: identified at 45 mins. SMALL BOWEL: Identified at 30 mins. IMPRESSION: Normal Hepatobiliary Scan. The cystic duct is patent. Concordant results (preliminary interpretation) provided by [facility]. Procedure Completed: 20:23 Preliminary ([facility]) Report: Dictated and Authenticated: 20:47 Final Interpretation: 08:13 06/18/2017
[2017-06-18] MEDS: Vancomycin 1gm in NS 250ml 1 GM/250 ML BAG IVPB SCH ×2 (09:45→23:15)
[2017-06-18] MEDS: Mesalamine ER Cap 500 MG PO SCH ×2 (10:07→17:50)
--- NOTE | 2017-06-18 11:41 | PN ---
DATE: 06/18/2017 SUBJECTIVE: Patient is seen and examined at the bedside, he is comfortable and he is confused, disoriented but calm, not agitated. PHYSICAL EXAMINATION: VITAL SIGNS: Temperature 101.3, heart rate 73, respiratory rate 20, blood pressure 161/70, oxygen saturation 100% on room air. HEENT: Head and neck atraumatic. LUNGS: Clear to auscultation bilaterally. HEART: Regular rate and rhythm. S1, S2 normal. ABDOMEN: Soft, nontender and nondistended. MUSCULOSKELETAL: No C/C/E. NEURO: The patient moves all extremities spontaneously. SKIN: Moist. PSYCH: The patient is alert, but disoriented and confused. LABORATORY DATA: WBC 14.7, hemoglobin 12.4, platelet count 227. Sodium 132, potassium 4, chloride 100, carbon dioxide 22, BUN 13, creatinine 0.8, glucose 115, lactic acid 1, AST 54, ALT 30, total bilirubin 1.2, cholesterol 121. MEDICATIONS: Tylenol p.r.n., aspirin, Coreg, Plavix, Proscar, heparin drip, meropenem, Pentasa, Protonix, normal saline 100 mL/hour, Flomax, vancomycin. ASSESSMENT AND PLAN: This is an 86-year-old gentleman with continuous fever without any specific infectious etiology found. Specifically, CAT scan of the abdomen and pelvis as well as HIDA scan were found to be not revealing for any specific infectious etiology. CAT scan of the head does not suggest presence of central nervous system lesion or process that would account for continuous fever. No cellulitic changes that would otherwise be a source for fever. Chest CT angio did not reveal neither PE nor significant new/acute consolidative/inflammatory process. Stable thoracic aneurism present. At present time, I will order echocardiogram to rule out easily identifiable vegetations, even though blood cultures so far were negative. The other possibility is a drug fever. I discussed possibility of pentasa induced drug fever with Dr. Rivera, however based on the time frame it does not appear to be not related. Due to the patient's mental status risks of CT abdo/pelvis with PO contrast (aspiration risk and overall unlikely ability to cooperate with the need to drink needed amount of liquid contrast) to rule out microabscess due to Crohn's disease overweigh perceived benefits. I discussed situation with Dr. Purdy who agreed with above and consensus was to continue current management presently. I will continue to target euvolemia, euglycemia, normothermia and oxygen saturation more than 90%. We will continue with deep venous thrombosis and gastrointestinal prophylaxis. ccm time 40 min Fred Devlin MD [facility]
--- NOTE | 2017-06-18 13:08 | CT ---
PROCEDURE: CT Chest with contrast (Pulmonary Angiogram) HISTORY: Evaluate thoracic aortic aneurysm COMPARISON: 04/11/2017 CT thorax TECHNIQUE: Axial computed tomography images were obtained of the chest in the pulmonary arterial phase of enhancement. Coronal and sagittal reformatted images were created and reviewed. Intravenous contrast dose: 150 cc Omnipaque 350 Mean Hounsfield unit values in the main pulmonary artery: 323.69 Radiation dose: Total exam DLP = 366.57 mGy-cm. This CT exam was performed using one or more of the following dose reduction techniques: Automated exposure control, adjustment of the mA and/or kV according to patient size, and/or use of iterative reconstruction technique. FINDINGS: PULMONARY ARTERIES: Unremarkable. No pulmonary embolism. AORTA: Stable ascending aortic aneurysm. On the prior study this measured 5.5 x 5.6 cm. At the same level this measures 5.6 x 5.7 cm. No evidence of dissection. The great vessels are unaffected. Descending aorta is non aneurysmal with maximum diameter 2.9 cm. The descending thoracic and upper abdominal aorta a mildly tortuous LUNGS: Spiculated mass apex of right lung 10 x 16 mm. This is unchanged compared to the prior study Peripheral consolidative process posterior segment right upper lobe which is pleural-based. This represents a stable finding and therefore likely to represent scar, atelectasis. PLEURAL SPACES: Unremarkable. No effusion or pneuomothorax. HEART: Unremarkable. No cardiomegaly. No significant pericardial effusion. LYMPH NODES: No lymphadenopathy. BONES, CHEST WALL: Loss of height of T7 and T11 vertebral bodies unchanged. OTHER FINDINGS: Unremarkable. IMPRESSION: Aneurysmal dilatation of the ascending aorta maximum diameter 5.[address] pulmonary angiogram. No pulmonary embolus. Stable pulmonary parenchymal findings.
--- NOTE | 2017-06-18 13:53 | PN ---
DATE: SUBJECTIVE: The patient is in bed in no acute distress, however, he is still having low-grade fevers that fevers on a downward trend, according to the son-in-law who is with him whole night states that the mental status is improved somewhat. There has been no diarrhea and no abdominal pain. PHYSICAL EXAMINATION: VITAL SIGNS: On exam, temperature is 100.8 this morning, he appears more comfortable with a blood pressure of 150/70, respiratory of 21, and heart rate of 87. HEENT: Examination of HEENT is unremarkable. NECK: Supple. LUNGS: Have decreased breath sounds. HEART: Normal S1 and S2. GASTROINTESTINAL: Abdominal examination is soft and nontender. LABORATORY DATA: Laboratory examination reveals the patient's white count of 14,700, hemoglobin of 12, and platelets of 227. Chemistries reveals a BUN of 13 and creatinine of 0.8. The patient's procalcitonin is reported to be less than 0.05. Urinalysis is noted 0 to 2 wbc's. RPR is negative and microbiology reveals the blood cultures are negative. Urine cultures are negative. The patient's HIDA scan is reported to be negative. The cystic duct is patent and normal HIDA scan. Dr. Fuentes's note is reviewed. ASSESSMENT AND PLAN: This is a 87-year-old male with history of coronary artery disease, myocardial infarction, aortic aneurysm, benign prostatic hypertrophy, coronary artery disease, transient ischemic attack, status post cardiac catheterization, postprocedure day number 2. The patient developed systemic inflammatory response syndrome, change in mental status and fevers only hours after the procedure, a possibility of aspiration pneumonia versus drug-drug interaction and serotonin syndrome possibility, although review of the medications, no clear cut medications at this point. Dr. Gentile's consultation is appreciated. Case discussed with Dr. Devlin regarding possibility of MRI of the head and CAT scan of the chest which were reviewed that thoracic aneurysm that he has, he did have a CT scan in March of the chest. Case discussed with the patient's son-in-law at length and the patient's daughter at length. Currently on vancomycin and meropenem. Pending final culture results that appears to have a bacterial pneumonia is less likely, an infectious etiology is less likely to the onset as acute immediately after the procedure. Still concerned about drug-drug interaction and fever. The patient's medications at home are reviewed. We will follow with you. Rohan Gautam MD
[2017-06-18 15:47] LABS: CK-MB 1.8 ng/mL (0.0-3.6); TROPONIN I 0.28 ng/mL
--- NOTE | 2017-06-18 21:26 | US ---
PROCEDURE: Bilateral carotid artery duplex ultrasound HISTORY: Carotid stenosis PHYSICIAN(S): Matt Grijalva MD. TECHNIQUE: Duplex sonography and color-flow Doppler were used to evaluate the carotid bifurcations and limited segments of the vertebral arteries bilaterally. FINDINGS: There is mild to moderate diffuse heterogeneous plaque noted at the carotid bifurcations bilaterally. The peak systolic velocity in the proximal right internal carotid artery is 45 cm/sec. This corresponds to a 20 to 39% proximal right ICA stenosis. Normal systolic velocities are noted in the proximal right external carotid artery. There is antegrade flow in the right vertebral artery. The peak systolic velocity in the proximal left internal carotid artery is 91 cm/sec. This corresponds to a 20 to 39% proximal left ICA stenosis. Normal systolic velocities are noted in the proximal left external carotid artery. There is antegrade flow in the left vertebral artery. IMPRESSION: 1. Bilateral 20-39% proximal ICA stenoses. 2. Antegrade flow in both vertebral arteries.
[2017-06-19] MEDS: Sodium Chloride 0.9% 1,000 ML IV SCH ×3 (01:15→23:30)
[2017-06-19] MEDS: Heparin25000 units/250ml 1/2NS 25,000 UNITS/250 ML BAG IV PRN (04:39)
[2017-06-19] MEDS: Meropenem IV 1 gm in NS 50 ML IVPB SCH ×3 (05:00→22:05)
--- NOTE | 2017-06-19 05:52 | CON ---
DATE: 06/18/2017 REASON FOR CONSULTATION: History of Crohn's disease, fever. HISTORY OF PRESENT ILLNESS: This 87-year-old patient with a history of coronary artery disease, status post PA, history of aortic aneurysm, Crohn's disease, history of TIA, status post aortic valve replacement, status post coronary artery bypass graft, admitted for elective cardiac cath on 06/14/2017. The patient, on 06/14/2017, developed a fever and change of mental status. The patient is in ICU now, more awake. History of Crohn's disease for many years. The patient has been on only Pentasa now and has intermittent courses of Entocort in the past. The patient is taking only 3 g a day of this Pentasa. GI estrada, he was stable. History of diverticulitis in the past, history of small bowel stricture. The patient has been on a low-residue diet. OTHER PAST MEDICAL HISTORY: Significant for left leg melanoma excision done in the past, history of thyroid surgery, diabetes mellitus, and osteoporosis. ALLERGIES: INCLUDE PNEUMOCOCCAL VACCINATION. SOCIAL HISTORY: No smoking or alcohol. REVIEW OF SYSTEMS: Limited as per the chart. Other systems reviewed. PHYSICAL EXAMINATION: GENERAL: The patient is lying on the bed, not in acute distress at the present time. More awake. The patient's daughter was at bedside. VITAL SIGNS: Temperature is 101 at 8am blood pressure is 133/57. HEENT: Atraumatic, anicteric. NECK: Supple. HEART: S1 and S2 heard. LUNGS: Bilateral air entry present. Slightly decreased basilar breath sounds. ABDOMEN: Soft. No tenderness. EXTREMITIES: No cyanosis. No clubbing. NEUROLOGIC: More awake, not responsive to verbal commands. LABORATORY DATA: Hemoglobin 12.4, hematocrit 37.3, WBC 14.7, platelets 227. Chemistries are essentially unremarkable. Urinalysis showed moderate blood. The patient had a CT scan of the chest done, which shows aneurysmal dilation of the ascending aorta, spiculated mass in the right lung apex, unchanged. The patient also had a CT of the chest, abdomen and pelvis done without contrast with no p.o. or IV contrast; reported as abnormal-appearing ileum compatible with an IBD extending the ileocecal valve and ileum and portions of jejunum. IMPRESSION: This 87-year-old patient with a long history of Crohn's disease, on Pentasa for many years, had a fever and change of mental status, had a recent cardiac catheterization. The etiology for the fever is unclear. The abdominal CT findings appear to be chronic. However, the study is limited because it was done no IV or p.o. contrast. I had a lengthy discussion with Dr. Devlin, employee training specialist; the drug-induced fever, especially for mesalamine, after so many years is less likely. T-Max was 100.8 at 8 a.m. RECOMMENDATIONS: Would recommend at this point. 1. Follow up of the cultures. 2. If the patient continues to spike, would consider repeating the CT with oral contrast. I did discuss with the patient's daughter at length as she was little reluctant about the patient having an NG tube done for the contrast. We will continue the antibiotics as we will continue to closely follow up his care and suggest further management on the clinical course. Saurav Chacon MD MTDD
[2017-06-19 05:58] LABS: ALB/GLOB RATIO 1.1 (1.1-1.8); ALBUMIN 4.1 g/dL (3.0-4.8); ALT/SGPT 27 U/L (7-56); AST/SGOT 50 U/L (17-59); BLOOD UREA NITROGEN 14 mg/dL (7-21); CALCIUM 9.4 mg/dL (8.4-10.5); GFR AFRICAN-AMERICAN > 60; GFR NON-AFRICAN AMERICAN > 60; MAGNESIUM 1.7 mg/dL (1.7-2.2)
[2017-06-19 05:59] LABS: BASO # 0.05 K/mm3 (0.0-2.0); BASO % 0.4 % (0.0-3.0); EOS # 0.3 (0.0-0.7); EOS % 2.1 % (1.5-5.0); GRAN # 8.05 (1.4-6.5); GRAN % 64.5 % (50.0-68.0); HEMOGLOBIN 12.8 g/dL (14.0-18.0); LYMPH # 2.7 (1.2-3.4); LYMPH % 21.5 % (22.0-35.0); MEAN CELL VOLUME 86.1 fl (80.0-105.0); MEAN CORPUSCULAR HEMOGLOBIN 28.6 pg (25.0-35.0); MEAN CORPUSCULAR HGB CONC 33.2 g/dl (31.0-37.0); MEAN PLATELET VOLUME 9.7 fl (7.0-11.0); MONO # 1.4 (0.1-0.6); MONO % 11.5 % (1.0-6.0); RBC 4.47 10^6/uL (3.5-6.1); RED CELL DISTRIBUTION WIDTH 15.6 % (11.5-14.5); WHITE BLOOD COUNT 12.5 10^3/ul (4.5-11.0)
[2017-06-19 06:02] LABS: INR 1.31 (0.93-1.08); PROTHROMBIN TIME 14.4 SECONDS (9.4-12.5)
--- NOTE | 2017-06-19 07:39 | CP.PCM.PN ---
Subjective - Date & Time of Evaluation Date of Evaluation: 06/19/17 Time of Evaluation: 07:00 - Subjective Subjective: Stable in CCU. Surjit at the bedside. His speech seems improved (to her) but not normal. Still confused and agitated at times. V/S noted. T = 96 - 100.4. RSR/ST Lungs: clear Cor. S1S2 Abd.: soft Ext.: no edema Neuro.: improved speaking. I/O= 1800/0 recorded Labs noted: trop = 0.28, WBC = 12,500. PTT pending BC x2 NG at 48 hrs. ECG 06/16/17: RSR, ASMI, STTW changes. No change. 2nd CT Head noted: No acute CVA or bleed. CT A/P noted: Gallstones, Inflam bowel findings, etc. See report. HIDA Scan normal CT Chest and car. U/S reports noted. Objective - Vital Signs/Intake and Output Vital Signs (last 24 hours): Temp Pulse Resp BP Pulse Ox 100.4 F H 91 H 16 160/58 H 97 06/19/17 04:00 06/19/17 03:50 06/19/17 03:40 06/19/17 03:00 06/19/17 03:50 Intake and Output: 06/19/17 06/19/17 06:59 18:59 Intake Total 250 Balance 250 - Medications Medications: Current Medications Aspirin (Aspirin Chewable) 81 mg PO DAILY [facility] Last Admin: 06/18/17 10:07 Dose: Not Given Aspirin (Aspirin Supp) 300 mg RC DAILY [facility] Last Admin: 06/18/17 09:42 Dose: 300 mg Carvedilol (Coreg) 3.125 mg PO BID [facility] Last Admin: 06/18/17 17:50 Dose: Not Given Clopidogrel Bisulfate (Plavix) 75 mg PO DAILY [facility] Last Admin: 06/18/17 11:51 Dose: 75 mg Finasteride (Proscar) 5 mg PO DAILY [facility] Last Admin: 06/18/17 10:07 Dose: Not Given Heparin Sodium/Sodium Chloride (Heparin 48658 Units/250ml 1/2 Normal Saline) 25 ,000 units in 250 mls @ 8.001 mls/hr IV .Q24H PRN; Protocol; 12 UNITS/KG/HR PRN Reason: ADJUST RATE PER PROTOCOL Last Admin: 06/19/17 04:39 Dose: 14 units/kg/hr, 9.335 mls/hr Sodium Chloride (Sodium Chloride 0.9%) 1,000 mls @ 100 mls/hr IV .Q10H [facility] Last Admin: 06/19/17 01:15 Dose: 100 mls/hr Meropenem (Merrem Iv 1 Gm Premix) 50 mls @ 100 mls/hr IVPB Q8 [facility] PRN Reason: Protocol Stop: 06/26/17 10:46 Last Admin: 06/19/17 05:00 Dose: 100 mls/hr Vancomycin HCl (Vancomycin 1gm) 1 gm in 250 mls @ 167 mls/hr IVPB Q12H [facility] PRN Reason: Protocol Stop: 06/26/17 10:46 Last Admin: 06/18/17 23:15 Dose: 167 mls/hr Acetaminophen (Ofirmev) 1,000 mg in 100 mls @ 400 mls/hr IVPB Q6H PRN PRN Reason: Temperature Stop: 06/20/17 05:40 Last Admin: 06/19/17 05:51 Dose: 400 mls/hr Mesalamine (Pentasa) 1,500 mg PO BID [facility] Last Admin: 06/18/17 17:50 Dose: Not Given Pantoprazole Sodium (Protonix Inj) 40 mg IVP DAILY [facility] Last Admin: 06/18/17 09:45 Dose: 40 mg Tamsulosin HCl (Flomax) 0.4 mg PO DAILY [facility] Last Admin: 06/18/17 10:07 Dose: Not Given - Labs Labs: 06/19/17 05:30 06/19/17 05:30 PT 14.4 SECONDS (9.4-12.5) H 06/19/17 05:30 INR 1.31 (0.93-1.08) H 06/19/17 05:30 APTT 64.4 Seconds (25.1-36.5) H 06/18/17 03:30 Assessment and Plan - Assessment and Plan (Free Text) Assessment: AMS/Difficult Speaking S/P PCI procedure: R/O Delerium, Stoke, etc Fever Limiting exertional chest and left arm pain with + nuclear stress test. CAD/CABG/AVR with PCI of SVBG to LAD/Diag. 06/16/17 Remote AR Chronic A/C for remote AVR (St Se valve) H/O TIA's H/O speech problems with prior sepsis TIA's TAA ( ~ 5.6 cms) Crohn's Disease BPH Osteoporosis Spinal Surgery Plan: ICU monitoring As per Neuro., ID, Intensivists, GI AB coverage. Check cultures. Heparin for AVR if OK with Neuro. Monitor PTT's ASA HI for new stent Swallowing Eval: If OK give PO Plavix for new stent. Try OOB to chair today.
--- NOTE | 2017-06-19 11:03 | PN ---
DATE: 06/19/2017 SUBJECTIVE: The patient is in bed, in no acute distress, was seen early this morning in the ICU 128, bed 6. The patient's daughter is present. The patient has period of confusion overall, though he is improving. He is responsive. He recognizes his family. His temperature is on a downward trend. PHYSICAL EXAMINATION: VITAL SIGNS: Temperature is 99, T-max is 100.4, respiratory rate of 22, heart rate of 94. HEENT: Unremarkable. NECK: Supple. LUNGS: Decreased breath sounds. HEART: Normal S1, S2. ABDOMEN: Soft, nontender. LABORATORY DATA: Reveals the patient has a white count of 12,500, hemoglobin of 12, platelets of 222. Coagulation is noted. Chemistries reveals a BUN of 14, creatinine of 0.9. Troponin is 0.28. Urinalysis is noted. Serologies are negative. Microbiology is negative. Blood culture is negative. MRSA screen, urine culture is negative. Dr. Fransisco Fuentes's progress note is reviewed. The patient had a CAT scan of the chest yesterday, which shows no pulmonary emboli. No parenchymal findings and there is aneurysmal dilation noted. ASSESSMENT AND PLAN: This is an 86-year-old male with history of coronary artery disease, myocardial infarction, aortic aneurysm, benign prostate hypertrophy with coronary artery disease, history of transient ischemic attack, status post cardiac catheterization. Postprocedure day #3, the patient developed systemic inflammatory response syndrome, change in mental status and fevers only few hours after the procedure, which speaks against infectious process too rapid for his developed infections, currently improving. I suspect probably sedation-induced fevers and change in mental status. The patient appears to be improving. We will discontinue the vancomycin. Check on final cultures. There is no infiltrates on the chest x-ray and CAT scan of the chest. His CAT scan of the abdomen is negative. The procalcitonin is negative. Blood and urine cultures are negative and the HIDA scan is negative for the gallbladder. We will discontinue the vancomycin and continue meropenem once the final culture results are available. We will follow with you. Rohan Gautam MD [facility] # [id number]
[2017-06-19] MEDS: Mesalamine ER Cap 500 MG PO SCH ×2 (11:17→17:51)
--- NOTE | 2017-06-19 13:35 | PN ---
DATE: 06/19/2017 SUBJECTIVE: The patient is seen and examined at bedside. He is comfortable, at times it appears that his speech makes sense to the family; however, he is still disoriented and confused, however, pleasantly so. OBJECTIVE: VITAL SIGNS: Heart rate 97, temperature 100.4 max, respiratory rate 16, blood pressure 158/84, and oxygen saturation 96% on nasal cannula. ENT: Head and neck atraumatic. LUNGS: Clear to auscultation bilaterally. HEART: Regular rate and rhythm. S1 and S2 normal. ABDOMEN: Soft, nontender, and nondistended. MUSCULOSKELETAL: No C/C/E. NEUROLOGIC: The patient moves all extremities spontaneously. SKIN: Moist. PSYCHIATRIC: The patient is alert and awake but disoriented. LABORATORY DATA: Sodium 132, potassium 3.8, chloride 97, carbon dioxide 22, BUN 14, creatinine 0.9, and glucose 95. WBC 12.5 down from 14.7, hemoglobin 12.8, and platelet count 222. Urine is negative for leukocyte esterase and nitrate as of 2 days ago. PTT is 56.2. MEDICATIONS: Tylenol p.r.n., aspirin, Coreg, Plavix, Proscar, heparin drip, meropenem, Pentasa, Protonix, normal saline 100 mL/hour, and Flomax. ASSESSMENT AND PLAN: This is an 86-year-old gentleman with acute onset fever of unclear etiology. Fairly extensive septic work up to identify potential source was done without revealing the etiology. GI service does not think that Pentasa causes fever in this patient. The patient will be unable to drink p.o. contrast for CAT scan of the abdomen and pelvis. Unfortunately for MRI head patient would need to be cooperative and stay still for up to 45 min, which may not be acheivable at present time. Family had significant reservation in regard to the NGT placement. His fever, however, is a little bit better and as per family, his mental status appear to start to get clearer. We will continue antibiotics and heparin drip. The patient is also on aspirin, Plavix, and beta-blockers. Neurology consult is appreciated as well. We will continue to target euvolemia, euglycemia, normothermia and oxygen saturation more than 90%. We will continue with DVT and GI prophylaxis. ccm time 40 min Fred Devlin MD [facility]
--- NOTE | 2017-06-19 19:42 | PN ---
DATE: 06/19/2017 SUBJECTIVE: This patient was seen and evaluated earlier today. The patient's family was at bedside. Daughter was also at bedside. The patient is sitting, more alert. Has episodes of loose bowel movements. PHYSICAL EXAMINATION: VITAL SIGNS: T-max was 100.4 at 4 a.m. today. HEENT: Atraumatic, anicteric. NECK: Supple. HEART: S1 and S2 heard. LUNGS: Bilateral air entry present. ABDOMEN: Softly distended. No tenderness. EXTREMITIES: No cyanosis. No clubbing. LABORATORY DATA: Hemoglobin 12.8, hematocrit 38.5, WBC 12.5, platelets 222. Chemistry is essentially unremarkable. IMPRESSION: This is an 87-year-old patient status post recent cardiac catheterization, had a spike fever with change of mental status. The patient has a long history of Crohn's disease. The CT shows no obvious inflammatory changes except chronic changes noticed in the small bowel, suggestive of chronic inflammatory bowel disease and the CT was limited study because it was done with no p.o. or IV contrast. The etiology for the fever is unclear. ID consult note reviewed. The patient is still on meropenum The patient has a history of C. diff in the past in addition to the Crohn's disease. We will request stool for C. diff and also consider empirically starting the patient on Flagyl. Thank you very much for allowing us to participate in the care of the patient. Saurav Chacon MD [facility]
[2017-06-20] MEDS: Meropenem IV 1 gm in NS 50 ML IVPB SCH ×2 (05:53→22:50)
[2017-06-20] MEDS: Heparin25000 units/250ml 1/2NS 25,000 UNITS/250 ML BAG IV PRN (07:42)
--- NOTE | 2017-06-20 07:55 | CP.PCM.PN ---
Subjective - Date & Time of Evaluation Date of Evaluation: 06/20/17 Time of Evaluation: 07:00 - Subjective Subjective: Stable in CCU. Sleeping now. Reports are that is some improvement in speech yesterday. V/S noted. T = 98.6 RSR/ST Lungs: clear Cor. S1S2 Abd.: soft Ext.: no edema Neuro.: improved speaking, by report I/O= N/A Labs 06/19 noted. PTT 50.3 today. Other labs pending BC x2 NG at 3 days ECG 06/16/17: RSR, ASMI, STTW changes. No change. 2nd CT Head noted: No acute CVA or bleed. CT A/P noted: Gallstones, Inflam bowel findings, etc. See report. HIDA Scan normal CT Chest and car. U/S reports noted. Objective - Vital Signs/Intake and Output Vital Signs (last 24 hours): Temp Pulse Resp BP Pulse Ox 98.6 F 110 H 20 148/80 99 06/20/17 04:00 06/20/17 06:00 06/20/17 04:00 06/20/17 04:00 06/20/17 04:00 Intake and Output: 06/20/17 06/20/17 06:59 18:59 Intake Total 1420 250 Balance 1420 250 - Medications Medications: Current Medications Aspirin (Aspirin Chewable) 81 mg PO DAILY [facility] Last Admin: 06/19/17 11:16 Dose: Not Given Aspirin (Aspirin Supp) 300 mg RC DAILY [facility] Last Admin: 06/19/17 15:50 Dose: 300 mg Carvedilol (Coreg) 3.125 mg PO BID [facility] Last Admin: 06/19/17 17:51 Dose: Not Given Clopidogrel Bisulfate (Plavix) 75 mg PO DAILY [facility] Last Admin: 06/19/17 11:18 Dose: Not Given Finasteride (Proscar) 5 mg PO DAILY [facility] Last Admin: 06/19/17 11:18 Dose: Not Given Heparin Sodium/Sodium Chloride (Heparin 81018 Units/250ml 1/2 Normal Saline) 25 ,000 units in 250 mls @ 8.001 mls/hr IV .Q24H PRN; Protocol; 12 UNITS/KG/HR PRN Reason: ADJUST RATE PER PROTOCOL Last Admin: 06/20/17 07:42 Dose: 14 units/kg/hr, 9.335 mls/hr Sodium Chloride (Sodium Chloride 0.9%) 1,000 mls @ 100 mls/hr IV .Q10H [facility] Last Admin: 06/19/17 23:30 Dose: 100 mls/hr Meropenem (Merrem Iv 1 Gm Premix) 50 mls @ 100 mls/hr IVPB Q8 [facility] PRN Reason: Protocol Stop: 06/26/17 10:46 Last Admin: 06/20/17 05:53 Dose: 100 mls/hr Mesalamine (Pentasa) 1,500 mg PO BID [facility] Last Admin: 06/19/17 17:51 Dose: Not Given Pantoprazole Sodium (Protonix Inj) 40 mg IVP DAILY [facility] Last Admin: 06/19/17 11:18 Dose: Not Given Tamsulosin HCl (Flomax) 0.4 mg PO DAILY [facility] Last Admin: 06/19/17 11:19 Dose: Not Given - Labs Labs: 06/19/17 05:30 06/19/17 05:30 PT 14.4 SECONDS (9.4-12.5) H 06/19/17 05:30 INR 1.31 (0.93-1.08) H 06/19/17 05:30 APTT 50.3 Seconds (25.1-36.5) H 06/20/17 05:20 Assessment and Plan - Assessment and Plan (Free Text) Assessment: AMS/Difficult Speaking S/P PCI procedure: R/O Delerium, Stoke, Adverse medication response, etc Fever Limiting exertional chest and left arm pain with + nuclear stress test. CAD/CABG/AVR with PCI of SVBG to LAD/Diag. 06/16/17 Remote SD Chronic A/C for remote AVR (St Se valve) H/O TIA's H/O speech problems with prior sepsis TIA's TAA ( ~ 5.6 cms) Crohn's Disease BPH Osteoporosis Spinal Surgery Plan: ICU monitoring As per Neuro., ID, Intensivists, GI AB coverage. Check cultures. Heparin for AVR . Monitor PTT's ASA KS for new stent Swallowing Eval: If OK give PO Plavix for new stent. Try OOB to chair today.
[2017-06-20] MEDS: Mesalamine ER Cap 500 MG PO SCH (09:09)
[2017-06-20 09:20] LABS: HEMOGLOBIN 13.4 g/dL (14.0-18.0); MEAN CELL VOLUME 86.7 fl (80.0-105.0); MEAN CORPUSCULAR HEMOGLOBIN 29.3 pg (25.0-35.0); MEAN CORPUSCULAR HGB CONC 33.8 g/dl (31.0-37.0); MEAN PLATELET VOLUME 10.4 fl (7.0-11.0); RBC 4.58 10^6/uL (3.5-6.1); WHITE BLOOD COUNT 18.8 10^3/ul (4.5-11.0)
[2017-06-20 09:31] LABS: ALB/GLOB RATIO 1.1 (1.1-1.8); ALBUMIN 4.3 g/dL (3.0-4.8); CALCIUM 9.9 mg/dL (8.4-10.5)
[2017-06-20] MEDS: Sodium Chloride 0.9% 1,000 ML IV SCH (10:40)
--- NOTE | 2017-06-20 11:29 | RAD ---
PROCEDURE: CHEST RADIOGRAPH, 1 VIEW HISTORY: Elevated white count 90294. COMPARISON: 06/17/2017 single-view chest. 06/18/2017 CT pulmonary angiogram FINDINGS: LUNGS: Clear. PLEURA: No pneumothorax or pleural fluid seen. CARDIOVASCULAR: Cardiomegaly. No evidence of acute, significant cardiovascular disease. Incidental Finding(s): Postoperative changes related to sternotomy. OSSEOUS STRUCTURES: No significant abnormalities. VISUALIZED UPPER ABDOMEN: Normal. OTHER FINDINGS: None. IMPRESSION: No active disease. No acute/significant interval changes.
--- NOTE | 2017-06-20 13:20 | PN ---
DATE: 06/20/2017 SUBJECTIVE: The patient seen early this morning in the ICU, bed 6. The patient's son-in-law is at the bedside. He said the patient has had uneventful night. Overall, he is better. He is recognizing people. He no longer has fever and no cough, shortness of breath. He has had no diarrhea now, diarrhea. PHYSICAL EXAMINATION: VITAL SIGNS: On exam, his temperature is 98. He has been afebrile now for almost 48 hours with blood pressure is 140/80, respiratory rate 27, heart rate of 115. HEENT: Unremarkable. NECK: Supple. LUNGS: Decreased breath sounds. HEART: Normal S1, S2. ABDOMEN: Soft, nontender. LABORATORY DATA: Reveals an increasing white count this morning 18,800, hemoglobin of 13, platelets of 269. Coagulation is noted. Chemistries reveals his BUN is increased, his creatinine is 1.7 with GFR has dropped to 38. LFTs were normal. Alkaline phosphatase is normal. Urinalysis is noted. Microbiology reveals the blood cultures are negative. Nares MRSA is negative and the C. diff is negative. ASSESSMENT AND PLAN: This is an 86-year-old male with coronary artery disease, myocardial infarction, aortic aneurysm, benign prostatic hypertrophy, history of transient ischemic attack, status post cardiac catheterization. Postprocedure day #4, the patient developed systemic inflammatory response syndrome with change in mental status and fevers only approximately 3 hours of procedure, which he spoke against infectious process. Nevertheless, he is empirically given antibiotics. Blood culture, urine culture, sputum cultures were all reported to be negative. CAT scan of the chest was negative for infiltrates. CAT scan of the abdomen was negative. Procalcitonin was negative. The patient was empirically started on vancomycin and meropenem. Vancomycin was discontinued. This morning, the patient status is improved clinically. However, he has a new acute kidney injury with creatinine increased to 1.7. The new leukocytosis etiology of which is not clear with systemic inflammatory response syndrome. We will order a vancomycin random level, although vancomycin was discontinued greater than 24 hours ago and yesterday's creatinine was normal. We will order a urine eosinophil to rule out interstitial nephritis and we will repeat blood cultures x2, urine culture, sputum culture, urinalysis. I will order a stat procalcitonin and abdominal ultrasound to evaluate common bile duct size and size of the kidney. Recommend a Nephrology consultation and may need repeat CT of the abdomen, also the abdominal exam is completely normal at this point. We will follow with you. Rohan Gautam MD
--- NOTE | 2017-06-20 13:25 | PN ---
DATE: 06/20/2017 SUBJECTIVE: The patient is seen and examined at bedside. He is comfortable. He is not agitated. He is still confused and disoriented. He was subsided. OBJECTIVE: VITAL SIGNS: Heart rate 100, oxygenation 100% on nasal cannula, respiratory rate 20, and blood pressure 107/73. ENT: Head and neck atraumatic. LUNGS: Clear to auscultation bilaterally. HEART: Regular rate and rhythm. S1 and S2 normal. ABDOMEN: Soft, nontender and nondistended. MUSCULOSKELETAL: No C/C/E. NEUROLOGIC: The patient moves all extremities spontaneously. SKIN: Moist. PSYCHIATRIC: The patient is confused and disoriented, but calm and comfortable. LABORATORY DATA: Sodium of 138, potassium of 4, chloride of 101, carbon dioxide of 17, BUN of 25, creatinine of 1.7, glucose of 147, and ammonia level less than 9. ABG is pending. Echocardiogram is pending. Renal ultrasound is pending. WBC 18.8, hemoglobin 13.4, and platelet count 269. RPR nonreactive. Chest x-ray, no active pulmonary disease. MEDICATIONS: Aspirin, Coreg, Plavix, Proscar, heparin drip, meropenem, Pentasa, Protonix, normal saline 100 mL/hour, and Flomax. ASSESSMENT AND PLAN: This is an 86-year-old gentleman who initially presented with altered mental status and fever of unclear etiology. Extensive septic workup did not reveal any pertinent diagnosis. At present time , fever subsided. The patient is hemodynamically and respiratory estrada stable. Able to protect his airways. He however continues to be confused. The patient's family initially refused NGT, but around 6:00 pm agreed to it. Echocardiogram is pending. Today, the patient had spiked wbc count and creatinine level. Renal US revealed b/l hydronephrosis and distended bladder--Lr was placed, urine output increased. I will continue to target euvolemia, euglycemia, normothermia and oxygen saturation more than 90%. I will continue with DVT and GI prophylaxis. ccm time 40 min Fred Devlin MD MTDD
--- NOTE | 2017-06-20 13:33 | CP.CCUPN ---
<Romeo Baca - Last Filed: 06/20/17 13:26> CCU Subjective - Physician Review Subjective (Free Text): Patient seen and examined at bedside. Pt doing well overnight with no acute events. Patient remains altered this morning and not speaking appropriately. Family member at bedside. CCU Objective - Vital Signs / Intake & Output Vital Signs (Last 4 hours): Vital Signs Pulse Resp Pulse Ox 06/20/17 13:00 107 H 34 H 100 06/20/17 12:00 103 H 21 100 06/20/17 11:00 105 H 23 100 06/20/17 10:00 109 H 24 100 Intake and Output (Last 8hrs): Intake & Output 06/19/17 06/20/17 06/20/17 22:59 06:59 14:59 Intake Total 1420 250 Balance 1420 250 Intake: IV 1420 250 right hand 1420 Other: # Voids Urine, Voided 2 - Physical Exam Physical Exam Limitations: Positive for: Altered Mental Status Respiratory/Chest: Positive for: Clear to Auscultation, Good Air Exchange. Negative for: Rales, Rhonchi Cardiovascular: Positive for: Regular Rate and Rhythm, Normal S1, S2 Abdomen: Positive for: Normal Bowel Sounds. Negative for: Tenderness, Distention Upper Extremity: Positive for: Normal Inspection. Negative for: Cyanosis Lower Extremity: Positive for: Normal Inspection. Negative for: Edema, CALF TENDERNESS Neurological: Positive for: CN II-XII Intact, Motor Func Grossly Intact, Normal Sensory Function, Other (Unable to effectively communicate or follow commantds) Skin: Positive for: Warm, Dry, Normal Color Psychiatric: Positive for: Alert. Negative for: Oriented x 3, Normal Insight, Normal Concentration - Medications Active Medications: Active Medications Generic Name Dose Route Start Last Admin Trade Name Freq PRN Reason Stop Dose Admin Aspirin 81 mg 06/17/17 10:00 06/20/17 09:08 Aspirin Chewable PO Not Given DAILY [facility] Aspirin 300 mg 06/17/17 10:00 06/20/17 09:53 Aspirin Supp RC 300 mg DAILY [facility] Administration Carvedilol 3.125 mg 06/16/17 18:00 06/20/17 09:09 Coreg PO Not Given BID [facility] Clopidogrel Bisulfate 75 mg 06/17/17 10:00 06/20/17 09:09 Plavix PO Not Given DAILY [facility] Finasteride 5 mg 06/17/17 10:00 06/20/17 11:12 Proscar PO Not Given DAILY [facility] Heparin Sodium/Sodium Chloride 25,000 units in 250 mls @ 8.001 mls/hr 19:47 06/20/17 07:42 Heparin 43233 Units/250ml 1/2 Normal Saline IV 14 units/kg/hr .Q24H PRN 9.335 mls/hr ADJUST RATE PER PROTOCOL Administration Protocol 12 UNITS/KG/HR Sodium Chloride 1,000 mls @ 100 mls/hr 06/16/17 23:15 06/20/17 10:40 Sodium Chloride 0.9% IV 100 mls/hr .Q10H [facility] Administration Meropenem 50 mls @ 100 mls/hr 06/20/17 22:00 Merrem Iv 1 Gm Premix IVPB 06/29/17 22:01 Q12 [facility] Protocol Mesalamine 1,500 mg 06/16/17 18:00 06/20/17 09:09 Pentasa PO Not Given BID [facility] Pantoprazole Sodium 40 mg 06/17/17 10:00 06/20/17 11:12 Protonix Inj IVP Not Given DAILY [facility] Tamsulosin HCl 0.4 mg 06/17/17 10:00 06/20/17 09:09 Flomax PO Not Given DAILY [facility] - Patient Studies Lab Studies: Microbiology Studies 06/16/17 17:58 Blood Culture - Preliminary Blood-Venous NO GROWTH AFTER 3 DAYS 06/16/17 17:58 Blood Culture - Preliminary Blood-Venous NO GROWTH AFTER 3 DAYS 06/19/17 10:01 C. difficile Antigen & Toxin A,B (M - Final Stool Lab Studies 06/20/17 06/20/17 06/20/17 Range/Units 10:30 10:30 09:05 WBC (4.5-11.0) 10^3/ul RBC (3.5-6.1) 10^6/uL Hgb (14.0-18.0) g/dL Hct (42.0-52.0) % MCV (80.0-105.0) fl MCH (25.0-35.0) pg MCHC (31.0-37.0) g/dl RDW (11.5-14.5) % Plt Count (120.0-450.0) 10^3/uL MPV (7.0-11.0) fl APTT (25.1-36.5) Seconds Sodium 138 (132-148) mmol/L Potassium 4.0 (3.6-5.0) mmol/L Chloride 101 (98-107) mmol/L Carbon Dioxide 17 L (21-33) mmol/L Anion Gap 24 H (10-20) BUN 25 H (7-21) mg/dL Creatinine 1.7 H (0.8-1.5) mg/dl Est GFR ( Amer) 46 Est GFR (Non-Af Amer) 38 POC Glucose (mg/dL) (65-110) mg/dL Random Glucose 147 H (70-110) mg/dL Calcium 9.9 (8.4-10.5) mg/dL Total Bilirubin 1.1 (0.2-1.3) mg/dL AST 51 (17-59) U/L ALT 39 (7-56) U/L Alkaline Phosphatase 75 (38-126) U/L Ammonia < 9 L (9-33) umol/L Total Protein 8.3 (5.8-8.3) g/dL Albumin 4.3 (3.0-4.8) g/dL Globulin 4.0 gm/dL Albumin/Globulin Ratio 1.1 (1.1-1.8) Random Vancomycin 11.3 L (20.0-40.0) ug/mL 06/20/17 06/20/17 06/19/17 Range/Units 09:05 05:20 22:09 WBC 18.8 H D (4.5-11.0) 10^3/ul RBC 4.58 (3.5-6.1) 10^6/uL Hgb 13.4 L (14.0-18.0) g/dL Hct 39.7 L (42.0-52.0) % MCV 86.7 (80.0-105.0) fl MCH 29.3 (25.0-35.0) pg MCHC 33.8 (31.0-37.0) g/dl RDW 16.0 H (11.5-14.5) % Plt Count 269 (120.0-450.0) 10^3/uL MPV 10.4 (7.0-11.0) fl APTT 50.3 H (25.1-36.5) Seconds Sodium (132-148) mmol/L Potassium (3.6-5.0) mmol/L Chloride (98-107) mmol/L Carbon Dioxide (21-33) mmol/L Anion Gap (10-20) BUN (7-21) mg/dL Creatinine (0.8-1.5) mg/dl Est GFR ( Amer) Est GFR (Non-Af Amer) POC Glucose (mg/dL) 143 H (65-110) mg/dL Random Glucose (70-110) mg/dL Calcium (8.4-10.5) mg/dL Total Bilirubin (0.2-1.3) mg/dL AST (17-59) U/L ALT (7-56) U/L Alkaline Phosphatase (38-126) U/L Ammonia (9-33) umol/L Total Protein (5.8-8.3) g/dL Albumin (3.0-4.8) g/dL Globulin gm/dL Albumin/Globulin Ratio (1.1-1.8) Random Vancomycin (20.0-40.0) ug/mL 06/19/ Range/Units 18:03 WBC (4.5-11.0) 10^3/ul RBC (3.5-6.1) 10^6/uL Hgb (14.0-18.0) g/dL Hct (42.0-52.0) % MCV (80.0-105.0) fl MCH (25.0-35.0) pg MCHC (31.0-37.0) g/dl RDW (11.5-14.5) % Plt Count (120.0-450.0) 10^3/uL MPV (7.0-11.0) fl APTT (25.1-36.5) Seconds Sodium (132-148) mmol/L Potassium (3.6-5.0) mmol/L Chloride (98-107) mmol/L Carbon Dioxide (21-33) mmol/L Anion Gap (10-20) BUN (7-21) mg/dL Creatinine (0.8-1.5) mg/dl Est GFR ( Amer) Est GFR (Non-Af Amer) POC Glucose (mg/dL) 123 H (65-110) mg/dL Random Glucose (70-110) mg/dL Calcium (8.4-10.5) mg/dL Total Bilirubin (0.2-1.3) mg/dL AST (17-59) U/L ALT (7-56) U/L Alkaline Phosphatase (38-126) U/L Ammonia (9-33) umol/L Total Protein (5.8-8.3) g/dL Albumin (3.0-4.8) g/dL Globulin gm/dL Albumin/Globulin Ratio (1.1-1.8) Random Vancomycin (20.0-40.0) ug/mL Laboratory Results - last 24 hr 06/19/17 06/19/17 06/20/17 18:03 22:09 05:20 WBC RBC Hgb Hct MCV MCH MCHC RDW Plt Count MPV APTT 50.3 H Sodium Potassium Chloride Carbon Dioxide Anion Gap BUN Creatinine Est GFR ( Amer) Est GFR (Non-Af Amer) POC Glucose (mg/dL) 123 H 143 H Random Glucose Calcium Total Bilirubin AST ALT Alkaline Phosphatase Ammonia Total Protein Albumin Globulin Albumin/Globulin Ratio Random Vancomycin 06/20/17 06/20/17 06/20/17 09:05 09:05 10:30 WBC 18.8 H D RBC 4.58 Hgb 13.4 L Hct 39.7 L MCV 86.7 MCH 29.3 MCHC 33.8 RDW 16.0 H Plt Count 269 MPV 10.4 APTT Sodium 138 Potassium 4.0 Chloride 101 Carbon Dioxide 17 L Anion Gap 24 H BUN 25 H Creatinine 1.7 H Est GFR ( Amer) 46 Est GFR (Non-Af Amer) 38 POC Glucose (mg/dL) Random Glucose 147 H Calcium 9.9 Total Bilirubin 1.1 AST 51 ALT 39 Alkaline Phosphatase 75 Ammonia Total Protein 8.3 Albumin 4.3 Globulin 4.0 Albumin/Globulin Ratio 1.1 Random Vancomycin 11.3 L 06/20/17 10:30 WBC RBC Hgb Hct MCV MCH MCHC RDW Plt Count MPV APTT Sodium Potassium Chloride Carbon Dioxide Anion Gap BUN Creatinine Est GFR ( Amer) Est GFR (Non-Af Amer) POC Glucose (mg/dL) Random Glucose Calcium Total Bilirubin AST ALT Alkaline Phosphatase Ammonia < 9 L Total Protein Albumin Globulin Albumin/Globulin Ratio Random Vancomycin Fingerstick Blood Sugar Results: 122 Critical Care Progress Note - Nutrition Nutrition: Nutrition Category Date Time Status NPO Diet [DIET] Diets 06/16/17 Dinner Ordered Assessment/Plan - Assessment and Plan (Free Text) Plan: 86 year old male PMHx CAD s/p prior bypass surgery and emergency PCI of vein graft to the LAD in 2007, thoracic ascending aneurysm, AV valve replacement, HTN , dyslipidemia, acute diverticulitis, Crohn's disease, BPH, osteoporosis, and arthritis presents with AMS and resolved fever of unknown origin. Today, patient had mild elevations in WBC and creatinine. Will obtain renal ultrasound , blood and urine cultures, and ammonia level. Neuro - Remains altered - Head CT negative for acute pathology - Brain MRI difficult as patient does not follow commands Cardio - Cardiac cath 06/16: severe 3 vessel CAD, severe in-stent and [place] stenosis of the LAD graft, and significant R coronary artery vein graft disease. Patient had successful PCI of the severe LAD artery graft in-stent restenosis and de [place] lesions - Heparin gtt as patient unable to tolerate PO medications - Dr. Peterson and Dr. Fuentes on board Respiratory - Maintain O2 saturations greater than 90% GI - NPO - GI ppx Protonix - No PO medications - Ammonia levels pending Renal - Acute elevation in creatinine, renal ultrasound ordered - UA and culture sent - Replenish electrolytes as needed ID - Fevers resolved - Blood and urine cultures ordered - Procal ordered - Continue Meryovany Baca, PGY-2 <Fred Devlin - Last Filed: 06/20/17 20:28> CCU Objective - Vital Signs / Intake & Output Vital Signs (Last 4 hours): Vital Signs Pulse Resp BP Pulse Ox 06/20/17 17:20 89 06/20/17 17:15 90 20 119/54 L 100 06/20/17 17:00 95 H 22 100 Intake and Output (Last 8hrs): Intake & Output 06/20/17 06/20/17 06/20/17 06:59 14:59 22:59 Intake Total 250 2000 Output Total 2300 Balance 250 -300 Intake: IV 250 2000 Right Forearm 2000 Output: Urine 2000 Urine, Voided 2000 Stool 300 Other: # Bowel Movements 4 - Medications Active Medications: Active Medications Generic Name Dose Route Start Last Admin Trade Name Freq PRN Reason Stop Dose Admin Aspirin 81 mg 06/17/17 10:00 06/20/17 09:08 Aspirin Chewable PO Not Given DAILY [facility] Aspirin 300 mg 06/17/17 10:00 06/20/17 09:53 Aspirin Supp RC 300 mg DAILY [facility] Administration Carvedilol 3.125 mg 06/16/17 18:00 06/20/17 09:09 Coreg PO Not Given BID [facility] Clopidogrel Bisulfate 75 mg 06/17/17 10:00 06/20/17 09:09 Plavix PO Not Given DAILY [facility] Finasteride 5 mg 06/17/17 10:00 06/20/17 11:12 Proscar PO Not Given DAILY [facility] Heparin Sodium/Sodium Chloride 25,000 units in 250 mls @ 8.001 mls/hr 19:47 06/20/17 07:42 Heparin 66498 Units/250ml 1/2 Normal Saline IV 14 units/kg/hr .Q24H PRN 9.335 mls/hr ADJUST RATE PER PROTOCOL Administration Protocol 12 UNITS/KG/HR Sodium Chloride 1,000 mls @ 100 mls/hr 06/16/17 23:15 06/20/17 10:40 Sodium Chloride 0.9% IV 100 mls/hr .Q10H [facility] Administration Meropenem 50 mls @ 100 mls/hr 06/20/17 22:00 Merrem Iv 1 Gm Premix IVPB 06/29/17 22:01 Q12 [facility] Protocol Mesalamine 1,500 mg 06/16/17 18:00 06/20/17 09:09 Pentasa PO Not Given BID [facility] Pantoprazole Sodium 40 mg 06/17/17 10:00 06/20/17 11:12 Protonix Inj IVP Not Given DAILY [facility] Tamsulosin HCl 0.4 mg 06/17/17 10:00 06/20/17 09:09 Flomax PO Not Given DAILY [facility] - Patient Studies Lab Studies: Microbiology Studies 06/16/17 17:58 Blood Culture - Preliminary Blood-Venous NO GROWTH AFTER 4 DAYS 06/16/17 17:58 Blood Culture - Preliminary Blood-Venous NO GROWTH AFTER 4 DAYS Lab Studies 06/20/17 06/20/17 06/20/17 Range/Units 16:15 16:11 14:00 WBC (4.5-11.0) 10^3/ul RBC (3.5-6.1) 10^6/uL Hgb (14.0-18.0) g/dL Hct (42.0-52.0) % MCV (80.0-105.0) fl MCH (25.0-35.0) pg MCHC (31.0-37.0) g/dl RDW (11.5-14.5) % Plt Count (120.0-450.0) 10^3/uL MPV (7.0-11.0) fl APTT (25.1-36.5) Seconds pCO2 24 L (35-45) mm/Hg pO2 88.0 (80-100) mm/Hg HCO3 16.3 L (21-28) mmol/L ABG pH 7.44 (7.35-7.45) ABG Total CO2 17.0 L (22-28) mmol.L ABG O2 Saturation 98.0 (95-98) % ABG Base Excess -6.0 L (-2.0-3.0) mmol/L ABG Potassium 3.5 L (3.6-5.2) mmol/L Glucose 129 H (75-110) mg/dl Lactate 0.8 (0.7-2.1) mmol/L FiO2 21.0 % Sodium 138.0 (132-148) mmol/L Potassium (3.6-5.0) mmol/L Chloride 108.0 H (98-107) mmol/L Carbon Dioxide (21-33) mmol/L Anion Gap (10-20) BUN (7-21) mg/dL Creatinine (0.8-1.5) mg/dl Est GFR ( Amer) Est GFR (Non-Af Amer) POC Glucose (mg/dL) 118 H (65-110) mg/dL Random Glucose (70-110) mg/dL Calcium (8.4-10.5) mg/dL Total Bilirubin (0.2-1.3) mg/dL AST (17-59) U/L ALT (7-56) U/L Alkaline Phosphatase (38-126) U/L Ammonia (9-33) umol/L Total Protein (5.8-8.3) g/dL Albumin (3.0-4.8) g/dL Globulin gm/dL Albumin/Globulin Ratio (1.1-1.8) Procalcitonin (0.19-0.49) NG/ML Arterial Blood Potassium 3.5 L (3.6-5.2) mmol/L Urine Color Light yellow (YELLOW) Urine Appearance Sl cloudy (CLEAR) Urine pH 6.0 (4.7-8.0) Ur Specific [place] 1.020 (1.005-1.035) Urine Protein 30 H (<30 mg/dL) mg/dL Urine Glucose (UA) Negative (NEGATIVE) mg/dL Urine Ketones 40 H (NEGATIVE) mg/dL Urine Blood Large H (NEGATIVE) Urine Nitrate Negative (NEGATIVE) Urine Bilirubin Negative (NEGATIVE) Urine Urobilinogen 0.2 (<1 E.U./dL) E.U./dL Ur Leukocyte Esterase Negative (NEGATIVE) Brianna/uL Urine RBC Tntc (0-2) /hpf Urine WBC 1 - 3 (0-6) /hpf Ur Epithelial Cells 0 - 2 (0-5) /hpf Urine Bacteria Small (NEG) Random Vancomycin (20.0-40.0) ug/mL 06/20/17 06/20/17 06/20/17 Range/Units 12:13 10:30 10:30 WBC (4.5-11.0) 10^3/ul RBC (3.5-6.1) 10^6/uL Hgb (14.0-18.0) g/dL Hct (42.0-52.0) % MCV (80.0-105.0) fl MCH (25.0-35.0) pg MCHC (31.0-37.0) g/dl RDW (11.5-14.5) % Plt Count (120.0-450.0) 10^3/uL MPV (7.0-11.0) fl APTT (25.1-36.5) Seconds pCO2 (35-45) mm/Hg pO2 (80-100) mm/Hg HCO3 (21-28) mmol/L ABG pH (7.35-7.45) ABG Total CO2 (22-28) mmol.L ABG O2 Saturation (95-98) % ABG Base Excess (-2.0-3.0) mmol/L ABG Potassium (3.6-5.2) mmol/L Glucose (75-110) mg/dl Lactate (0.7-2.1) mmol/L FiO2 % Sodium (132-148) mmol/L Potassium (3.6-5.0) mmol/L Chloride (98-107) mmol/L Carbon Dioxide (21-33) mmol/L Anion Gap (10-20) BUN (7-21) mg/dL Creatinine (0.8-1.5) mg/dl Est GFR ( Amer) Est GFR (Non-Af Amer) POC Glucose (mg/dL) 122 H (65-110) mg/dL Random Glucose (70-110) mg/dL Calcium (8.4-10.5) mg/dL Total Bilirubin (0.2-1.3) mg/dL AST (17-59) U/L ALT (7-56) U/L Alkaline Phosphatase (38-126) U/L Ammonia < 9 L (9-33) umol/L Total Protein (5.8-8.3) g/dL Albumin (3.0-4.8) g/dL Globulin gm/dL Albumin/Globulin Ratio (1.1-1.8) Procalcitonin (0.19-0.49) NG/ML Arterial Blood Potassium (3.6-5.2) mmol/L Urine Color (YELLOW) Urine Appearance (CLEAR) Urine pH (4.7-8.0) Ur Specific [place] (1.005-1.035) Urine Protein (<30 mg/dL) mg/dL Urine Glucose (UA) (NEGATIVE) mg/dL Urine Ketones (NEGATIVE) mg/dL Urine Blood (NEGATIVE) Urine Nitrate (NEGATIVE) Urine Bilirubin (NEGATIVE) Urine Urobilinogen (<1 E.U./dL) E.U./dL Ur Leukocyte Esterase (NEGATIVE) Brianna/uL Urine RBC (0-2) /hpf Urine WBC (0-6) /hpf Ur Epithelial Cells (0-5) /hpf Urine Bacteria (NEG) Random Vancomycin 11.3 L (20.0-40.0) ug/mL 06/20/17 06/20/17 06/20/17 Range/Units 10:00 09:05 09:05 WBC 18.8 H D (4.5-11.0) 10^3/ul RBC 4.58 (3.5-6.1) 10^6/uL Hgb 13.4 L (14.0-18.0) g/dL Hct 39.7 L (42.0-52.0) % MCV 86.7 (80.0-105.0) fl MCH 29.3 (25.0-35.0) pg MCHC 33.8 (31.0-37.0) g/dl RDW 16.0 H (11.5-14.5) % Plt Count 269 (120.0-450.0) 10^3/uL MPV 10.4 (7.0-11.0) fl APTT (25.1-36.5) Seconds pCO2 (35-45) mm/Hg pO2 (80-100) mm/Hg HCO3 (21-28) mmol/L ABG pH (7.35-7.45) ABG Total CO2 (22-28) mmol.L ABG O2 Saturation (95-98) % ABG Base Excess (-2.0-3.0) mmol/L ABG Potassium (3.6-5.2) mmol/L Glucose (75-110) mg/dl Lactate (0.7-2.1) mmol/L FiO2 % Sodium 138 (132-148) mmol/L Potassium 4.0 (3.6-5.0) mmol/L Chloride 101 (98-107) mmol/L Carbon Dioxide 17 L (21-33) mmol/L Anion Gap 24 H (10-20) BUN 25 H (7-21) mg/dL Creatinine 1.7 H (0.8-1.5) mg/dl Est GFR ( Amer) 46 Est GFR (Non-Af Amer) 38 POC Glucose (mg/dL) (65-110) mg/dL Random Glucose 147 H (70-110) mg/dL Calcium 9.9 (8.4-10.5) mg/dL Total Bilirubin 1.1 (0.2-1.3) mg/dL AST 51 (17-59) U/L ALT 39 (7-56) U/L Alkaline Phosphatase 75 (38-126) U/L Ammonia (9-33) umol/L Total Protein 8.3 (5.8-8.3) g/dL Albumin 4.3 (3.0-4.8) g/dL Globulin 4.0 gm/dL Albumin/Globulin Ratio 1.1 (1.1-1.8) Procalcitonin < 0.05 L (0.19-0.49) NG/ML Arterial Blood Potassium (3.6-5.2) mmol/L Urine Color (YELLOW) Urine Appearance (CLEAR) Urine pH (4.7-8.0) Ur Specific [place] (1.005-1.035) Urine Protein (<30 mg/dL) mg/dL Urine Glucose (UA) (NEGATIVE) mg/dL Urine Ketones (NEGATIVE) mg/dL Urine Blood (NEGATIVE) Urine Nitrate (NEGATIVE) Urine Bilirubin (NEGATIVE) Urine Urobilinogen (<1 E.U./dL) E.U./dL Ur Leukocyte Esterase (NEGATIVE) Brianna/uL Urine RBC (0-2) /hpf Urine WBC (0-6) /hpf Ur Epithelial Cells (0-5) /hpf Urine Bacteria (NEG) Random Vancomycin (20.0-40.0) ug/mL 06/20/17 06/19/17 Range/Units 05:20 22:09 WBC (4.5-11.0) 10^3/ul RBC (3.5-6.1) 10^6/uL Hgb (14.0-18.0) g/dL Hct (42.0-52.0) % MCV (80.0-105.0) fl MCH (25.0-35.0) pg MCHC (31.0-37.0) g/dl RDW (11.5-14.5) % Plt Count (120.0-450.0) 10^3/uL MPV (7.0-11.0) fl APTT 50.3 H (25.1-36.5) Seconds pCO2 (35-45) mm/Hg pO2 (80-100) mm/Hg HCO3 (21-28) mmol/L ABG pH (7.35-7.45) ABG Total CO2 (22-28) mmol.L ABG O2 Saturation (95-98) % ABG Base Excess (-2.0-3.0) mmol/L ABG Potassium (3.6-5.2) mmol/L Glucose (75-110) mg/dl Lactate (0.7-2.1) mmol/L FiO2 % Sodium (132-148) mmol/L Potassium (3.6-5.0) mmol/L Chloride (98-107) mmol/L Carbon Dioxide (21-33) mmol/L Anion Gap (10-20) BUN (7-21) mg/dL Creatinine (0.8-1.5) mg/dl Est GFR ( Amer) Est GFR (Non-Af Amer) POC Glucose (mg/dL) 143 H (65-110) mg/dL Random Glucose (70-110) mg/dL Calcium (8.4-10.5) mg/dL Total Bilirubin (0.2-1.3) mg/dL AST (17-59) U/L ALT (7-56) U/L Alkaline Phosphatase (38-126) U/L Ammonia (9-33) umol/L Total Protein (5.8-8.3) g/dL Albumin (3.0-4.8) g/dL Globulin gm/dL Albumin/Globulin Ratio (1.1-1.8) Procalcitonin (0.19-0.49) NG/ML Arterial Blood Potassium (3.6-5.2) mmol/L Urine Color (YELLOW) Urine Appearance (CLEAR) Urine pH (4.7-8.0) Ur Specific [place] (1.005-1.035) Urine Protein (<30 mg/dL) mg/dL Urine Glucose (UA) (NEGATIVE) mg/dL Urine Ketones (NEGATIVE) mg/dL Urine Blood (NEGATIVE) Urine Nitrate (NEGATIVE) Urine Bilirubin (NEGATIVE) Urine Urobilinogen (<1 E.U./dL) E.U./dL Ur Leukocyte Esterase (NEGATIVE) Brianna/uL Urine RBC (0-2) /hpf Urine WBC (0-6) /hpf Ur Epithelial Cells (0-5) /hpf Urine Bacteria (NEG) Random Vancomycin (20.0-40.0) ug/mL Laboratory Results - last 24 hr 06/19/17 06/20/17 06/20/17 22:09 05:20 09:05 WBC 18.8 H D RBC 4.58 Hgb 13.4 L Hct 39.7 L MCV 86.7 MCH 29.3 MCHC 33.8 RDW 16.0 H Plt Count 269 MPV 10.4 APTT 50.3 H pCO2 pO2 HCO3 ABG pH ABG Total CO2 ABG O2 Saturation ABG Base Excess ABG Potassium Glucose Lactate FiO2 Sodium Potassium Chloride Carbon Dioxide Anion Gap BUN Creatinine Est GFR ( Amer) Est GFR (Non-Af Amer) POC Glucose (mg/dL) 143 H Random Glucose Calcium Total Bilirubin AST ALT Alkaline Phosphatase Ammonia Total Protein Albumin Globulin Albumin/Globulin Ratio Procalcitonin Arterial Blood Potassium Urine Color Urine Appearance Urine pH Ur Specific [place] Urine Protein Urine Glucose (UA) Urine Ketones Urine Blood Urine Nitrate Urine Bilirubin Urine Urobilinogen Ur Leukocyte Esterase Urine RBC Urine WBC Ur Epithelial Cells Urine Bacteria Random Vancomycin 06/20/17 06/20/17 06/20/17 09:05 10:00 10:30 WBC RBC Hgb Hct MCV MCH MCHC RDW Plt Count MPV APTT pCO2 pO2 HCO3 ABG pH ABG Total CO2 ABG O2 Saturation ABG Base Excess ABG Potassium Glucose Lactate FiO2 Sodium 138 Potassium 4.0 Chloride 101 Carbon Dioxide 17 L Anion Gap 24 H BUN 25 H Creatinine 1.7 H Est GFR ( Amer) 46 Est GFR (Non-Af Amer) 38 POC Glucose (mg/dL) Random Glucose 147 H Calcium 9.9 Total Bilirubin 1.1 AST 51 ALT 39 Alkaline Phosphatase 75 Ammonia Total Protein 8.3 Albumin 4.3 Globulin 4.0 Albumin/Globulin Ratio 1.1 Procalcitonin < 0.05 L Arterial Blood Potassium Urine Color Urine Appearance Urine pH Ur Specific [place] Urine Protein Urine Glucose (UA) Urine Ketones Urine Blood Urine Nitrate Urine Bilirubin Urine Urobilinogen Ur Leukocyte Esterase Urine RBC Urine WBC Ur Epithelial Cells Urine Bacteria Random Vancomycin 11.3 L 06/20/17 06/20/17 06/20/17 10:30 12:13 14:00 WBC RBC Hgb Hct MCV MCH MCHC RDW Plt Count MPV APTT pCO2 24 L pO2 88.0 HCO3 16.3 L ABG pH 7.44 ABG Total CO2 17.0 L ABG O2 Saturation 98.0 ABG Base Excess -6.0 L ABG Potassium 3.5 L Glucose 129 H Lactate 0.8 FiO2 21.0 Sodium 138.0 Potassium Chloride 108.0 H Carbon Dioxide Anion Gap BUN Creatinine Est GFR ( Amer) Est GFR (Non-Af Amer) POC Glucose (mg/dL) 122 H Random Glucose Calcium Total Bilirubin AST ALT Alkaline Phosphatase Ammonia < 9 L Total Protein Albumin Globulin Albumin/Globulin Ratio Procalcitonin Arterial Blood Potassium 3.5 L Urine Color Urine Appearance Urine pH Ur Specific [place] Urine Protein Urine Glucose (UA) Urine Ketones Urine Blood Urine Nitrate Urine Bilirubin Urine Urobilinogen Ur Leukocyte Esterase Urine RBC Urine WBC Ur Epithelial Cells Urine Bacteria Random Vancomycin 06/20/17 06/20/17 16:11 16:15 WBC RBC Hgb Hct MCV MCH MCHC RDW Plt Count MPV APTT pCO2 pO2 HCO3 ABG pH ABG Total CO2 ABG O2 Saturation ABG Base Excess ABG Potassium Glucose Lactate FiO2 Sodium Potassium Chloride Carbon Dioxide Anion Gap BUN Creatinine Est GFR ( Amer) Est GFR (Non-Af Amer) POC Glucose (mg/dL) 118 H Random Glucose Calcium Total Bilirubin AST ALT Alkaline Phosphatase Ammonia Total Protein Albumin Globulin Albumin/Globulin Ratio Procalcitonin Arterial Blood Potassium Urine Color Light yellow Urine Appearance Sl cloudy Urine pH 6.0 Ur Specific [place] 1.020 Urine Protein 30 H Urine Glucose (UA) Negative Urine Ketones 40 H Urine Blood Large H Urine Nitrate Negative Urine Bilirubin Negative Urine Urobilinogen 0.2 Ur Leukocyte Esterase Negative Urine RBC Tntc Urine WBC 1 - 3 Ur Epithelial Cells 0 - 2 Urine Bacteria Small Random Vancomycin Critical Care Progress Note - Nutrition Nutrition: Nutrition Category Date Time Status NPO Diet [DIET] Diets 06/16/17 Dinner Ordered Attending/Attestation - Attestation I have personally seen and examined this patient.: Yes I have fully participated in the care of the patient.: Yes I have reviewed all pertinent clinical information: Yes Notes (Text): 06/20/17 20:[address] Devlin note
[2017-06-20 14:07] LABS: ARTERIAL BLOOD GAS HCO3 16.3 mmol/L (21-28); ARTERIAL BLOOD GAS PCO2 24 mm/Hg (35-45); ARTERIAL BLOOD GAS PH 7.44 (7.35-7.45)
--- NOTE | 2017-06-20 15:17 | US ---
HISTORY: inc wbc 18k , size of CBD, inc cr. 1.7 size of kid COMPARISON: 10/30/2015 TECHNIQUE: Sonographic evaluation of the abdomen. FINDINGS: LIVER: Measures 14.7 cm. Patent portal vein. Portal venous flow: Hepatopetal. Unremarkeable echogenicity of the liver parenchyma. No mass. No intrahepatic bile duct dilatation. GALLBLADDER: Cholelithiasis. Negative study for gallbladder wall thickening, pericholecystic fluid, sonographic Gates's sign. COMMON BILE DUCT: Measures 3.5 mm. No stones. No dilatation. PANCREAS: Unremarkable as visualized. No mass. No ductal dilatation. RIGHT KIDNEY: Measures 5.7 x 11.7cm. Mild right hydronephrosis. LEFT KIDNEY: Measures 5.9 x 11.7cm. Normal echogenicity. No calculus, mass, or hydronephrosis. SPLEEN: Normal in size and contour. No mass. AORTA: No aneurysmal dilatation. IVC: Unremarkable. OTHER FINDINGS: Urinary bladder volume 1469 mL. IMPRESSION: Cholelithiasis. No sonographic evidence of acute cholecystitis. Mild right hydronephrosis.
[2017-06-20 16:24] LABS: URINE BILIRUBIN NEGATIVE (NEGATIVE); URINE BLOOD LARGE (NEGATIVE); URINE GLUCOSE (UA) NEGATIVE (NEGATIVE); URINE LEUKOCYTE ESTERASE NEGATIVE Leu/uL (NEGATIVE); URINE NITRATE NEGATIVE (NEGATIVE); URINE PROTEIN 30 mg/dL (<30 mg/dL); URINE UROBILINOGEN 0.2 E.U./dL (<1 E.U./dL)
[2017-06-20 16:39] LABS: URINE APPEARANCE SL CLOUDY (CLEAR); URINE COLOR LIGHT YELLOW (YELLOW)
[2017-06-20 16:51] LABS: URINE EPITHELIAL CELLS 0 - 2 /hpf (0-5); URINE RBC TNTC /hpf (0-2)
[2017-06-20 16:52] LABS: URINE BACTERIA SMALL (NEG)
--- NOTE | 2017-06-21 00:18 | PN ---
DATE: 06/20/2017 SUBJECTIVE: This patient having episodes of loose bowel movements. No bleeding per rectum. Remains afebrile today. PHYSICAL EXAMINATION VITAL SIGNS: Temperature is 98, blood pressure is 119/54, respiratory rate is 22, and O2 saturation 100%. HEENT: Atraumatic, anicteric. NECK: Supple. HEART: S1 and S2 heard. LUNGS: Bilateral air entry present. ABDOMEN: Soft. No tenderness. EXTREMITIES: No cyanosis. No clubbing. LABORATORY DATA: WBC count is elevated to 18.8, hemoglobin 13.4, hematocrit 39.7, platelets 269. BUN 25, creatinine 1.7. LFTs are normal. IMPRESSION: This is an 87-year-old patient admitted with fever, change of mental status following one day after the cardiac cath. The etiology of the sepsis is unclear. Patient has a history Crohn's disease, on Pentasa. Patient has been on antibiotics, meropenem, has a loose bowel movement, history of Clostridium difficile before, repeat stool for C. diff is negative now. The concern is the white cell count has gone up to 18. We would recommend at this point patient has a history of prosthetic aortic valve, patient is on heparin now, history of coronary artery disease, we would recommend: 1. Followup of the hemoglobin, hematocrit. 2. Continue antibiotics as per ID. 3. Patient has history of C. diff. We would consider repeating the CT with oral contrast. Patient is not alert, may need NG tube placement for oral contrast. Patient has been on heparin. We will discuss with distribution supervisor and also Dr. Fuentes. We will hold the heparin for about 3 to 4 hours, then place NG tube. Patient had a urinary retention, had a Lr catheter, had a residual of 800 mL of urine. We will continue to closely followup his care and suggest further management based on the clinical course. Saurav Chacon MD [facility]
--- NOTE | 2017-06-21 01:02 | CON ---
DATE: 06/20/2017 NEPHROLOGY CONSULTATION HISTORY OF PRESENT ILLNESS: This 87-year-old gentleman was examined in ICU bed 6. His interview was done in the presence of his daughter, Ela, and family members who were present at the bedside. The case was reviewed in detail with patient, family, nursing, Jane Neville, and Dr. Fred Devlin, senior product manager. The patient was initially admitted to the [facility] for an elective cardiac catheterization by Dr. Imtiaz Peterson on 06/16/2017. The patient is followed by Cardiology for multiple cardiac issues including atherosclerotic heart disease, status post aortic valve replacement, status post 3-vessel CABG bypassed and now with four cardiac stents, two in the past, two on 06/16/2017. Postprocedure, the patient was noted to be with altered mental status, slurring speech, and concerns of TIA versus cerebrovascular accident were entertained. The patient has comorbidities of non-insulin dependent diabetes mellitus, hyperlipidemia, atherosclerotic heart disease, chronic hypertension, history of degenerative arthritis, irritable bowel disease, and benign prostate hypertrophy. The patient also since hospitalization was noted to have a rapid response for altered mental status, and then was also noted to have elevated white blood cell count raising concerns of postprocedure sepsis. The patient currently is in ICU. He remains confused; not tolerating any diet at present with slurred speech, leukocytosis; and now elevated BUN and creatinine for which I am called to further evaluate the patient. Upon discussion with the daughter, Ela, at the bedside, she states that her father has no known allergies to medication, and that home medications did include Glucophage, Flomax, Zocor, Pentasa, Coreg, Ecotrin, Coumadin, and Proscar. Family history is noncontributory. He is a current nondrinker, nonsmoker. 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 She states a previous pneumococcal vaccine had caused a rash. REVIEW OF SYSTEMS: CONSTITUTIONAL: Denies fever or chills. EYE REVIEW: No change in visual acuity. EAR REVIEW: No hearing loss. THROAT REVIEW: He does have swallowing difficulty at present. CARDIAC: As per HPI. PULMONARY: He denies hematemesis or cough. GI: Irritable bowel disease. : History of prostate hypertrophy. VASCULAR: No claudication. PSYCHOLOGICAL: Confusion at present. NEUROLOGICAL: Has a history of TIAs in the past. ENDOCRINOLOGICAL: Diabetes mellitus and hyperlipidemia. FAMILY HISTORY: Noncontributory. PHYSICAL EXAMINATION: VITAL SIGNS: Temperature 98.6. quality assurance monitor chassis, normal sinus rhythm, pulse 91, respirations 20, blood pressure 107/73. Pulse ox 99%. HEENT: Head: Normocephalic, atraumatic. Eyes: No icterus. Ears: Clear. Throat: Noninjected. NECK: Supple. HEART: Regular S1, S2. LUNGS: With decreased breath sounds at the bases. ABDOMEN: Soft. EXTREMITIES: No edema. SKIN: Without rash. NEUROLOGICAL: Intact. PSYCHOLOGICAL: Alert, confused. VASCULAR: Legs warm to touch. He does have an indwelling Lr catheter at present that is draining clear yellow urine. LABORATORY DATA: White count 18,800, hemoglobin 13.4, hematocrit 39.7, platelets 269,000. PTT on IV heparin drip 50.3. Sodium 138, potassium 4.0, chloride 101, bicarb 17, BUN 25, creatinine 1.7. Random blood sugar 122. All liver function testing was normal including bilirubin 1.1, AST 51, ALT 39, and alk phos 75. Ammonia level was less than 9. Urinalysis on admission showed trace protein with 20 to 25 rbc's per high-power field, no leukocytes, and 0 to 2 white blood cells. Random vancomycin level today low at 11.3. RPR nonreactive. Abdominal ultrasound dated 06/20/2017 at 10:00 a.m. was reviewed. It shows gallstones, common bile duct 3.5 mm, pancreas without mass, mild right hydronephrosis, no evidence of acute cholecystitis. IMPRESSION: This is an 87-year-old male with multiple medical problems including admission for elective cardiac cath for atherosclerotic heart disease during which time on 06/16, the patient had two additional stents placed in his coronary arteries that already had two previous stents and have been through 3-vessel coronary artery bypass graft bypassed and an aortic valve replacement in the distant past with postoperative course complicated by altered mental status, probable transient ischemic attack, metabolic encephalopathy, and comorbidities of elevated white blood cell counts with urine and blood culture showing no growth at present. A stool for C. diff toxin antigen and toxin dated 06/19/2017 are both negative. Also with stable cholelithiasis and newly noted hydronephrosis. PLAN: As discussed with the patient, family, Dr. Devlin at bedside, and nursing, is to continue the indwelling Lr catheter that is currently present, and as discussed with family, the patient will continue on Proscar 5 mg p.o. daily and Flomax 0.4 mg p.o. daily for chronic benign prostatic hypertrophy for which the patient has been chronically followed by Urology and for which family is aware. He has elevated PSA levels which could be consistent with both benign prostatic hypertrophy as well as prostate cancer. As per the daughter, Ela, it was Urology's opinion that the patient given his advanced age and multiple comorbidities prior to this admission, would not be biopsied for any further intervention since he is advanced in age with multiple comorbidities and requires chronic anticoagulation for his coronary artery disease and stent. The family is aware that he will need to maintain Lr catheter at present. We will continue on Ecotrin 81 mg p.o. daily, Coreg 3.125 mg p.o. b.i.d., IV heparin protocol, meropenem 1 g IV q.12 hours under the direction of Dr. Gautam from Infectious Disease as well as Plavix 75 mg p.o. daily and Protonix 40 mg IV daily and 0.9 saline at 100 mL/hour. The patient is being scheduled for an echocardiogram to evaluate wall motion for completeness sake. He remains n.p.o. at present because of swallowing difficulties and family will be considering the placement of an NG tube for nutritional support. At present, he continues on aspiration precautions, fall precautions, and is ordered to have strict I's and O's and is ordered to be out of bed to chair and physical therapy for reconditioning and gait training. The patient will have a repeat basic metabolic panel completed in the a.m., and overall, prognosis though poor, remains stable at present. Greater than sixty minutes was spent in the care and discussion of this patient today. He remains a full code and all of the above was discussed in detail with the patient, nursing, and family at bedside. All questions were answered. Melany Hernandez MD [facility]
[2017-06-21 07:22] LABS: MEAN CORPUSCULAR HGB CONC 32.5 g/dl (31.0-37.0); MEAN PLATELET VOLUME 9.9 fl (7.0-11.0); RBC 3.93 10^6/uL (3.5-6.1); RED CELL DISTRIBUTION WIDTH 16.5 % (11.5-14.5); WHITE BLOOD COUNT 13.5 10^3/ul (4.5-11.0)
[2017-06-21 07:54] LABS: BLOOD UREA NITROGEN 20 mg/dL (7-21); CALCIUM 9.2 mg/dL (8.4-10.5); GFR AFRICAN-AMERICAN > 60; GFR NON-AFRICAN AMERICAN > 60
--- NOTE | 2017-06-21 08:08 | CP.PCM.PN ---
Subjective - Date & Time of Evaluation Date of Evaluation: 06/21/17 Time of Evaluation: 07:00 - Subjective Subjective: Stable in CCU. Sleeping now. Slept all day yesterday as well. Speech and confusion: no change. Lr in place now. V/S noted. T = 98.6 RSR/ST Lungs: clear Cor. S1S2 Abd.: soft Ext.: no edema Neuro.: no change I/O= 1311/1050 Labs 06/19 noted. PTT 40.8, WBC= 13,500, K+= 3.3, Cr+ 0.8 CXR 06/20: not read yet. Clear lungs by my reading. BC x2 NG at 4 days ECG 06/16/17: RSR, ASMI, STTW changes. No change. 2nd CT Head noted: No acute CVA or bleed. CT A/P noted: Gallstones, Inflam bowel findings, etc. See report. HIDA Scan normal CT Chest and car. U/S reports noted. Objective - Vital Signs/Intake and Output Vital Signs (last 24 hours): Temp Pulse Resp BP Pulse Ox 98.6 F 80 20 101/57 L 94 L 06/21/17 06:00 06/21/17 07:00 06/21/17 07:00 06/21/17 07:00 06/21/17 07:00 Intake and Output: 06/21/17 06/21/17 06:59 18:59 Intake Total 1311 Output Total 1050 Balance 261 - Medications Medications: Current Medications Aspirin (Aspirin Chewable) 81 mg PO DAILY [facility] Last Admin: 06/20/17 09:08 Dose: Not Given Aspirin (Aspirin Supp) 300 mg RC DAILY [facility] Last Admin: 06/20/17 09:53 Dose: 300 mg Carvedilol (Coreg) 3.125 mg PO BID [facility] Last Admin: 06/20/17 09:09 Dose: Not Given Clopidogrel Bisulfate (Plavix) 75 mg PO DAILY [facility] Last Admin: 06/20/17 09:09 Dose: Not Given Finasteride (Proscar) 5 mg PO DAILY [facility] Last Admin: 06/20/17 11:12 Dose: Not Given Heparin Sodium/Sodium Chloride (Heparin 60664 Units/250ml 1/2 Normal Saline) 25 ,000 units in 250 mls @ 8.001 mls/hr IV .Q24H PRN; Protocol; 12 UNITS/KG/HR PRN Reason: ADJUST RATE PER PROTOCOL Last Admin: 06/20/17 07:42 Dose: 14 units/kg/hr, 9.335 mls/hr Sodium Chloride (Sodium Chloride 0.9%) 1,000 mls @ 100 mls/hr IV .Q10H SUSANNA Last Admin: 06/20/17 10:40 Dose: 100 mls/hr Meropenem (Merrem Iv 1 Gm Premix) 50 mls @ 100 mls/hr IVPB Q12 SUSANNA PRN Reason: Protocol Stop: 06/29/17 22:01 Last Admin: 06/20/17 22:50 Dose: 100 mls/hr Mesalamine (Pentasa) 1,500 mg PO BID [facility] Last Admin: 06/20/17 09:09 Dose: Not Given Pantoprazole Sodium (Protonix Inj) 40 mg IVP DAILY [facility] Last Admin: 06/20/17 11:12 Dose: Not Given Tamsulosin HCl (Flomax) 0.4 mg PO DAILY [facility] Last Admin: 06/20/17 09:09 Dose: Not Given - Labs Labs: 06/21/17 06:00 06/21/17 05:50 PT 14.4 SECONDS (9.4-12.5) H 06/19/17 05:30 INR 1.31 (0.93-1.08) H 06/19/17 05:30 APTT 40.8 Seconds (25.1-36.5) H 06/21/17 06:00 Assessment and Plan - Assessment and Plan (Free Text) Assessment: AMS/Difficult Speaking S/P PCI procedure: R/O Delerium, Probable Stoke, R/O Adverse medication response, etc Fever Diarrhea Limiting exertional chest and left arm pain with + nuclear stress test. CAD/CABG/AVR with PCI of SVBG to LAD/Diag. 06/16/17 Remote TX Chronic A/C for remote AVR (St Se valve) H/O TIA's H/O speech problems with prior sepsis TIA's TAA ( ~ 5.6 cms) Crohn's Disease BPH Osteoporosis Spinal Surgery Plan: ICU monitoring As per Neuro., ID, Intensivists, GI, Renal, Uro. AB coverage. Check cultures. Heparin for AVR . Monitor PTT's ASA AK for new stent Swallowing Eval: If OK give PO Plavix for new stent.
[2017-06-21] MEDS ORDERED: Potassium Chloride 20 mEq 100 ML IV SCH (08:15)
[2017-06-21] MEDS: Sodium Chloride 0.9% 1,000 ML IV SCH ×3 (08:15→23:55)
[2017-06-21] MEDS: Meropenem IV 1 gm in NS 50 ML IVPB SCH (10:34)
[2017-06-21] MEDS: Mesalamine ER Cap 500 MG PO SCH ×2 (10:44→19:44)
[2017-06-21] MEDS: Heparin25000 units/250ml 1/2NS 25,000 UNITS/250 ML BAG IV PRN (10:47)
--- NOTE | 2017-06-21 11:16 | RAD ---
PROCEDURE: Portable chest HISTORY: NGT placement COMPARISON: 06/20/2017 earlier TECHNIQUE: FINDINGS: The nasogastric tube is seen above the diaphragm to the right of midline. This is suboptimal position. The tube should be advanced IMPRESSION: As above
--- NOTE | 2017-06-21 11:20 | RAD ---
PROCEDURE: Portable chest HISTORY: ngt placement COMPARISON: Earlier same day TECHNIQUE: FINDINGS: IMPRESSION: The nasogastric tube has been repositioned and is just beyond the GE junction in satisfactory position
--- NOTE | 2017-06-21 11:32 | CP.CCUPN ---
<Romeo Baca - Last Filed: 06/21/17 11:28> CCU Subjective - Physician Review Subjective (Free Text): Patient seen and examined at bedside. Pt doing well overnight with no acute events. Pt resting comfortably with family at bedside. NGT in place. Patient remains altered this morning and not speaking appropriately. 06/21/17 11:28 CCU Objective - Vital Signs / Intake & Output Vital Signs (Last 4 hours): Vital Signs Pulse BP 06/21/17 10:45 77 109/46 L Intake and Output (Last 8hrs): Intake & Output 06/20/17 06/21/17 06/21/17 22:59 06:59 14:59 Intake Total 1999 1561 Output Total 2300 1050 Balance -300 511 Intake: IV 1999 1561 Right Forearm 1999 1311 Output: Urine 1999 1050 Urine, Voided 1999 1050 Stool 300 Other: # Bowel Movements 4 - Physical Exam Physical Exam Limitations: Positive for: Altered Mental Status Head: Positive for: Atraumatic, Normocephalic Mouth: Positive for: Moist Mucous Membranes Respiratory/Chest: Positive for: Clear to Auscultation, Good Air Exchange. Negative for: Rales, Rhonchi Cardiovascular: Positive for: Regular Rate and Rhythm, Normal S1, S2 Abdomen: Positive for: Normal Bowel Sounds. Negative for: Tenderness, Distention Upper Extremity: Positive for: Normal Inspection. Negative for: Cyanosis Lower Extremity: Positive for: Normal Inspection. Negative for: Edema, CALF TENDERNESS Neurological: Positive for: CN II-XII Intact, Motor Func Grossly Intact, Normal Sensory Function, Other (Unable to effectively communicate or follow commantds) Skin: Positive for: Warm, Dry, Normal Color Psychiatric: Positive for: Alert. Negative for: Oriented x 3, Normal Insight, Normal Concentration - Medications Active Medications: Active Medications Generic Name Dose Route Start Last Admin Trade Name Freq PRN Reason Stop Dose Admin Aspirin 81 mg 06/17/17 10:00 06/21/17 10:43 Aspirin Chewable PO 81 mg DAILY [facility] Administration Aspirin 300 mg 06/17/17 10:00 06/21/17 10:45 Aspirin Supp RC Not Given DAILY [facility] Carvedilol 3.125 mg 06/16/17 18:00 06/21/17 10:45 Coreg PO 3.125 mg BID SUSANNA Administration Clopidogrel Bisulfate 75 mg 06/17/17 10:00 06/21/17 10:45 Plavix PO 75 mg DAILY SUSANNA Administration Finasteride 5 mg 06/17/17 10:00 06/21/17 10:44 Proscar PO 5 mg DAILY SUSANNA Administration Heparin Sodium/Sodium Chloride 25,000 units in 250 mls @ 8.001 mls/hr 19:47 06/21/17 10:47 Heparin 40943 Units/250ml 1/2 Normal Saline IV 16 units/kg/hr .Q24H PRN 10.668 mls/hr ADJUST RATE PER PROTOCOL Administration Protocol 12 UNITS/KG/HR Sodium Chloride 1,000 mls @ 100 mls/hr 06/16/17 23:15 06/21/17 08:15 Sodium Chloride 0.9% IV 100 mls/hr .Q10H SUSANNA Administration Meropenem 50 mls @ 100 mls/hr 06/20/17 22:00 06/21/17 10:34 Merrem Iv 1 Gm Premix IVPB 06/29/17 22:01 100 mls/hr Q12 SUSANNA Administration Protocol Potassium Chloride 10 meq in 100 mls @ 100 mls/hr 06/21/17 09:30 Potassium Chloride 10 Meq/100 Ml IVPB 06/21/17 13:29 Q1H SUSANNA Mesalamine 1,500 mg 06/16/17 18:00 06/21/17 10:44 Pentasa PO 1,500 mg BID SUSANNA Administration Pantoprazole Sodium 40 mg 06/17/17 10:00 06/21/17 10:43 Protonix Inj IVP 40 mg DAILY SUSANNA Administration Tamsulosin HCl 0.4 mg 06/17/17 10:00 06/21/17 10:43 Flomax PO 0.4 mg DAILY SUSANNA Administration Thiamine HCl 100 mg 06/21/17 11:00 Vitamin B1 Inj IV Q8 SUSANNA - Patient Studies Lab Studies: Microbiology Studies 06/20/17 11:00 Blood Culture - Preliminary Blood NO GROWTH AFTER 24 HOURS 06/20/17 10:30 Blood Culture - Preliminary Blood NO GROWTH AFTER 24 HOURS 06/16/17 17:58 Blood Culture - Preliminary Blood-Venous NO GROWTH AFTER 4 DAYS 06/16/17 17:58 Blood Culture - Preliminary Blood-Venous NO GROWTH AFTER 4 DAYS Lab Studies 06/21/17 06/21/17 06/21/17 Range/Units 11:21 08:15 06:00 WBC 13.5 H D (4.5-11.0) 10^3/ul RBC 3.93 (3.5-6.1) 10^6/uL Hgb 11.0 L D (14.0-18.0) g/dL Hct 33.8 L (42.0-52.0) % MCV 86.0 (80.0-105.0) fl MCH 28.0 (25.0-35.0) pg MCHC 32.5 (31.0-37.0) g/dl RDW 16.5 H (11.5-14.5) % Plt Count 236 (120.0-450.0) 10^3/uL MPV 9.9 (7.0-11.0) fl APTT (25.1-36.5) Seconds pCO2 (35-45) mm/Hg pO2 (80-100) mm/Hg HCO3 (21-28) mmol/L ABG pH (7.35-7.45) ABG Total CO2 (22-28) mmol.L ABG O2 Saturation (95-98) % ABG Base Excess (-2.0-3.0) mmol/L ABG Potassium (3.6-5.2) mmol/L Sodium (132-148) mmol/L Chloride (98-107) mmol/L Glucose (75-110) mg/dl Lactate (0.7-2.1) mmol/L FiO2 % Potassium (3.6-5.0) mmol/L Carbon Dioxide (21-33) mmol/L Anion Gap (10-20) BUN (7-21) mg/dL Creatinine (0.8-1.5) mg/dl Est GFR ( Amer) Est GFR (Non-Af Amer) POC Glucose (mg/dL) 96 96 (65-110) mg/dL Random Glucose (70-110) mg/dL Calcium (8.4-10.5) mg/dL Procalcitonin (0.19-0.49) NG/ML Arterial Blood Potassium (3.6-5.2) mmol/L Urine Color (YELLOW) Urine Appearance (CLEAR) Urine pH (4.7-8.0) Ur Specific [place] (1.005-1.035) Urine Protein (<30 mg/dL) mg/dL Urine Glucose (UA) (NEGATIVE) mg/dL Urine Ketones (NEGATIVE) mg/dL Urine Blood (NEGATIVE) Urine Nitrate (NEGATIVE) Urine Bilirubin (NEGATIVE) Urine Urobilinogen (<1 E.U./dL) E.U./dL Ur Leukocyte Esterase (NEGATIVE) Brianna/uL Urine RBC (0-2) /hpf Urine WBC (0-6) /hpf Ur Epithelial Cells (0-5) /hpf Urine Bacteria (NEG) Random Vancomycin (20.0-40.0) ug/mL 06/21/17 06/21/17 06/20/17 Range/Units 06:00 05:50 21:59 WBC (4.5-11.0) 10^3/ul RBC (3.5-6.1) 10^6/uL Hgb (14.0-18.0) g/dL Hct (42.0-52.0) % MCV (80.0-105.0) fl MCH (25.0-35.0) pg MCHC (31.0-37.0) g/dl RDW (11.5-14.5) % Plt Count (120.0-450.0) 10^3/uL MPV (7.0-11.0) fl APTT 40.8 H (25.1-36.5) Seconds pCO2 (35-45) mm/Hg pO2 (80-100) mm/Hg HCO3 (21-28) mmol/L ABG pH (7.35-7.45) ABG Total CO2 (22-28) mmol.L ABG O2 Saturation (95-98) % ABG Base Excess (-2.0-3.0) mmol/L ABG Potassium (3.6-5.2) mmol/L Sodium 140 (132-148) mmol/L Chloride 108 H (98-107) mmol/L Glucose (75-110) mg/dl Lactate (0.7-2.1) mmol/L FiO2 % Potassium 3.3 L (3.6-5.0) mmol/L Carbon Dioxide 23 (21-33) mmol/L Anion Gap 12 (10-20) BUN 20 (7-21) mg/dL Creatinine 0.8 (0.8-1.5) mg/dl Est GFR ( Amer) > 60 Est GFR (Non-Af Amer) > 60 POC Glucose (mg/dL) 113 H (65-110) mg/dL Random Glucose 108 (70-110) mg/dL Calcium 9.2 (8.4-10.5) mg/dL Procalcitonin (0.19-0.49) NG/ML Arterial Blood Potassium (3.6-5.2) mmol/L Urine Color (YELLOW) Urine Appearance (CLEAR) Urine pH (4.7-8.0) Ur Specific [place] (1.005-1.035) Urine Protein (<30 mg/dL) mg/dL Urine Glucose (UA) (NEGATIVE) mg/dL Urine Ketones (NEGATIVE) mg/dL Urine Blood (NEGATIVE) Urine Nitrate (NEGATIVE) Urine Bilirubin (NEGATIVE) Urine Urobilinogen (<1 E.U./dL) E.U./dL Ur Leukocyte Esterase (NEGATIVE) Biranna/uL Urine RBC (0-2) /hpf Urine WBC (0-6) /hpf Ur Epithelial Cells (0-5) /hpf Urine Bacteria (NEG) Random Vancomycin (20.0-40.0) ug/mL 06/20/17 06/20/17 06/20/17 Range/Units 16:15 16:11 14:00 WBC (4.5-11.0) 10^3/ul RBC (3.5-6.1) 10^6/uL Hgb (14.0-18.0) g/dL Hct (42.0-52.0) % MCV (80.0-105.0) fl MCH (25.0-35.0) pg MCHC (31.0-37.0) g/dl RDW (11.5-14.5) % Plt Count (120.0-450.0) 10^3/uL MPV (7.0-11.0) fl APTT (25.1-36.5) Seconds pCO2 24 L (35-45) mm/Hg pO2 88.0 (80-100) mm/Hg HCO3 16.3 L (21-28) mmol/L ABG pH 7.44 (7.35-7.45) ABG Total CO2 17.0 L (22-28) mmol.L ABG O2 Saturation 98.0 (95-98) % ABG Base Excess -6.0 L (-2.0-3.0) mmol/L ABG Potassium 3.5 L (3.6-5.2) mmol/L Sodium 138.0 (132-148) mmol/L Chloride 108.0 H (98-107) mmol/L Glucose 129 H (75-110) mg/dl Lactate 0.8 (0.7-2.1) mmol/L FiO2 21.0 % Potassium (3.6-5.0) mmol/L Carbon Dioxide (21-33) mmol/L Anion Gap (10-20) BUN (7-21) mg/dL Creatinine (0.8-1.5) mg/dl Est GFR ( Amer) Est GFR (Non-Af Amer) POC Glucose (mg/dL) 118 H (65-110) mg/dL Random Glucose (70-110) mg/dL Calcium (8.4-10.5) mg/dL Procalcitonin (0.19-0.49) NG/ML Arterial Blood Potassium 3.5 L (3.6-5.2) mmol/L Urine Color Light yellow (YELLOW) Urine Appearance Sl cloudy (CLEAR) Urine pH 6.0 (4.7-8.0) Ur Specific [place] 1.020 (1.005-1.035) Urine Protein 30 H (<30 mg/dL) mg/dL Urine Glucose (UA) Negative (NEGATIVE) mg/dL Urine Ketones 40 H (NEGATIVE) mg/dL Urine Blood Large H (NEGATIVE) Urine Nitrate Negative (NEGATIVE) Urine Bilirubin Negative (NEGATIVE) Urine Urobilinogen 0.2 (<1 E.U./dL) E.U./dL Ur Leukocyte Esterase Negative (NEGATIVE) Brianna/uL Urine RBC Tntc (0-2) /hpf Urine WBC 1 - 3 (0-6) /hpf Ur Epithelial Cells 0 - 2 (0-5) /hpf Urine Bacteria Small (NEG) Random Vancomycin (20.0-40.0) ug/mL 06/20/17 06/20/17 06/20/17 Range/Units 12:13 10:30 10:00 WBC (4.5-11.0) 10^3/ul RBC (3.5-6.1) 10^6/uL Hgb (14.0-18.0) g/dL Hct (42.0-52.0) % MCV (80.0-105.0) fl MCH (25.0-35.0) pg MCHC (31.0-37.0) g/dl RDW (11.5-14.5) % Plt Count (120.0-450.0) 10^3/uL MPV (7.0-11.0) fl APTT (25.1-36.5) Seconds pCO2 (35-45) mm/Hg pO2 (80-100) mm/Hg HCO3 (21-28) mmol/L ABG pH (7.35-7.45) ABG Total CO2 (22-28) mmol.L ABG O2 Saturation (95-98) % ABG Base Excess (-2.0-3.0) mmol/L ABG Potassium (3.6-5.2) mmol/L Sodium (132-148) mmol/L Chloride (98-107) mmol/L Glucose (75-110) mg/dl Lactate (0.7-2.1) mmol/L FiO2 % Potassium (3.6-5.0) mmol/L Carbon Dioxide (21-33) mmol/L Anion Gap (10-20) BUN (7-21) mg/dL Creatinine (0.8-1.5) mg/dl Est GFR ( Amer) Est GFR (Non-Af Amer) POC Glucose (mg/dL) 122 H (65-110) mg/dL Random Glucose (70-110) mg/dL Calcium (8.4-10.5) mg/dL Procalcitonin < 0.05 L (0.19-0.49) NG/ML Arterial Blood Potassium (3.6-5.2) mmol/L Urine Color (YELLOW) Urine Appearance (CLEAR) Urine pH (4.7-8.0) Ur Specific [place] (1.005-1.035) Urine Protein (<30 mg/dL) mg/dL Urine Glucose (UA) (NEGATIVE) mg/dL Urine Ketones (NEGATIVE) mg/dL Urine Blood (NEGATIVE) Urine Nitrate (NEGATIVE) Urine Bilirubin (NEGATIVE) Urine Urobilinogen (<1 E.U./dL) E.U./dL Ur Leukocyte Esterase (NEGATIVE) Brianna/uL Urine RBC (0-2) /hpf Urine WBC (0-6) /hpf Ur Epithelial Cells (0-5) /hpf Urine Bacteria (NEG) Random Vancomycin 11.3 L (20.0-40.0) ug/mL Laboratory Results - last 24 hr 06/20/17 06/20/17 06/20/17 10:00 10:30 12:13 WBC RBC Hgb Hct MCV MCH MCHC RDW Plt Count MPV APTT pCO2 pO2 HCO3 ABG pH ABG Total CO2 ABG O2 Saturation ABG Base Excess ABG Potassium Sodium Chloride Glucose Lactate FiO2 Potassium Carbon Dioxide Anion Gap BUN Creatinine Est GFR ( Amer) Est GFR (Non-Af Amer) POC Glucose (mg/dL) 122 H Random Glucose Calcium Procalcitonin < 0.05 L Arterial Blood Potassium Urine Color Urine Appearance Urine pH Ur Specific [place] Urine Protein Urine Glucose (UA) Urine Ketones Urine Blood Urine Nitrate Urine Bilirubin Urine Urobilinogen Ur Leukocyte Esterase Urine RBC Urine WBC Ur Epithelial Cells Urine Bacteria Random Vancomycin 11.3 L 06/20/17 06/20/17 06/20/17 14:00 16:11 16:15 WBC RBC Hgb Hct MCV MCH MCHC RDW Plt Count MPV APTT pCO2 24 L pO2 88.0 HCO3 16.3 L ABG pH 7.44 ABG Total CO2 17.0 L ABG O2 Saturation 98.0 ABG Base Excess -6.0 L ABG Potassium 3.5 L Sodium 138.0 Chloride 108.0 H Glucose 129 H Lactate 0.8 FiO2 21.0 Potassium Carbon Dioxide Anion Gap BUN Creatinine Est GFR ( Amer) Est GFR (Non-Af Amer) POC Glucose (mg/dL) 118 H Random Glucose Calcium Procalcitonin Arterial Blood Potassium 3.5 L Urine Color Light yellow Urine Appearance Sl cloudy Urine pH 6.0 Ur Specific [place] 1.020 Urine Protein 30 H Urine Glucose (UA) Negative Urine Ketones 40 H Urine Blood Large H Urine Nitrate Negative Urine Bilirubin Negative Urine Urobilinogen 0.2 Ur Leukocyte Esterase Negative Urine RBC Tntc Urine WBC 1 - 3 Ur Epithelial Cells 0 - 2 Urine Bacteria Small Random Vancomycin 06/20/17 06/21/17 06/21/17 21:59 05:50 06:00 WBC RBC Hgb Hct MCV MCH MCHC RDW Plt Count MPV APTT 40.8 H pCO2 pO2 HCO3 ABG pH ABG Total CO2 ABG O2 Saturation ABG Base Excess ABG Potassium Sodium 140 Chloride 108 H Glucose Lactate FiO2 Potassium 3.3 L Carbon Dioxide 23 Anion Gap 12 BUN 20 Creatinine 0.8 Est GFR ( Amer) > 60 Est GFR (Non-Af Amer) > 60 POC Glucose (mg/dL) 113 H Random Glucose 108 Calcium 9.2 Procalcitonin Arterial Blood Potassium Urine Color Urine Appearance Urine pH Ur Specific [place] Urine Protein Urine Glucose (UA) Urine Ketones Urine Blood Urine Nitrate Urine Bilirubin Urine Urobilinogen Ur Leukocyte Esterase Urine RBC Urine WBC Ur Epithelial Cells Urine Bacteria Random Vancomycin 06/21/17 06/21/17 06/21/17 06:00 08:15 11:21 WBC 13.5 H D RBC 3.93 Hgb 11.0 L D Hct 33.8 L MCV 86.0 MCH 28.0 MCHC 32.5 RDW 16.5 H Plt Count 236 MPV 9.9 APTT pCO2 pO2 HCO3 ABG pH ABG Total CO2 ABG O2 Saturation ABG Base Excess ABG Potassium Sodium Chloride Glucose Lactate FiO2 Potassium Carbon Dioxide Anion Gap BUN Creatinine Est GFR ( Amer) Est GFR (Non-Af Amer) POC Glucose (mg/dL) 96 96 Random Glucose Calcium Procalcitonin Arterial Blood Potassium Urine Color Urine Appearance Urine pH Ur Specific [place] Urine Protein Urine Glucose (UA) Urine Ketones Urine Blood Urine Nitrate Urine Bilirubin Urine Urobilinogen Ur Leukocyte Esterase Urine RBC Urine WBC Ur Epithelial Cells Urine Bacteria Random Vancomycin Fingerstick Blood Sugar Results: 113 Critical Care Progress Note - Nutrition Nutrition: Nutrition Category Date Time Status NPO Diet [DIET] Diets 06/16/17 Dinner Ordered Assessment/Plan - Assessment and Plan (Free Text) Plan: 86 year old male PMHx CAD s/p prior bypass surgery and emergency PCI of vein graft to the LAD in 2007, thoracic ascending aneurysm, AV valve replacement, HTN , dyslipidemia, acute diverticulitis, Crohn's disease, BPH, osteoporosis, and arthritis presents with AMS and resolved fever of unknown origin. Patient with downtrending wbc count today. Patient also found to be retaining uring yesterday , causing acute rise in creatinine.Today, creatinine back at baseline. Neurology will reevaluate patient today. Neuro - Remains altered - Head CT negative for acute pathology. Will repeat today - Not able to have Brain MRI due to metal heart valve - Will start Thiamine Cardio - Cardiac cath 06/16: severe 3 vessel CAD, severe in-stent and de [place] stenosis of the LAD graft, and significant R coronary artery vein graft disease. Patient had successful PCI of the severe LAD artery graft in-stent restenosis and de augusta lesions - Heparin gtt, NGT placed yesterday. Patient will now receive medications through it - Dr. Peterson and Dr. Fuentes on board Respiratory - Maintain O2 saturations greater than 90% GI - NPO - GI ppx Protonix - Meds through NGT - Ammonia level normal Renal - ABBE resolved - Renal ultrasound negative for acute pathology - UA and culture sent - Replenish electrolytes as needed - Maintain euvolemia ID - Fevers resolved - Blood and urine cultures ordered - Procal negative - Continue Merrem - Maintain normothermia Phuong, PGY-2 <Mauri Torres - Last Filed: 06/21/17 12:38> CCU Objective - Vital Signs / Intake & Output Vital Signs (Last 4 hours): Vital Signs Pulse BP 06/21/17 10:45 77 109/46 L Intake and Output (Last 8hrs): Intake & Output 06/20/17 06/21/17 06/21/17 22:59 06:59 14:59 Intake Total 1999 1561 Output Total 2300 1050 Balance -300 511 Intake: IV 1999 1561 Right Forearm 1999 1311 Output: Urine 1999 1050 Urine, Voided 1999 1050 Stool 300 Other: # Bowel Movements 4 - Medications Active Medications: Active Medications Generic Name Dose Route Start Last Admin Trade Name Freq PRN Reason Stop Dose Admin Aspirin 81 mg 06/17/17 10:00 06/21/17 10:43 Aspirin Chewable PO 81 mg DAILY SUSANNA Administration Aspirin 300 mg 06/17/17 10:00 06/21/17 10:45 Aspirin Supp RC Not Given DAILY SUSANNA Carvedilol 3.125 mg 06/16/17 18:00 06/21/17 10:45 Coreg PO 3.125 mg BID SUSANNA Administration Clopidogrel Bisulfate 75 mg 06/17/17 10:00 06/21/17 10:45 Plavix PO 75 mg DAILY SUSANNA Administration Finasteride 5 mg 06/17/17 10:00 06/21/17 10:44 Proscar PO 5 mg DAILY SUSANNA Administration Heparin Sodium/Sodium Chloride 25,000 units in 250 mls @ 8.001 mls/hr 19:47 06/21/17 10:47 Heparin 92516 Units/250ml 1/2 Normal Saline IV 16 units/kg/hr .Q24H PRN 10.668 mls/hr ADJUST RATE PER PROTOCOL Administration Protocol 12 UNITS/KG/HR Sodium Chloride 1,000 mls @ 100 mls/hr 06/16/17 23:15 06/21/17 08:15 Sodium Chloride 0.9% IV 100 mls/hr .Q10H SUSANNA Administration Meropenem 50 mls @ 100 mls/hr 06/20/17 22:00 06/21/17 10:34 Merrem Iv 1 Gm Premix IVPB 06/29/17 22:01 100 mls/hr Q12 SUSANNA Administration Protocol Potassium Chloride 10 meq in 100 mls @ 100 mls/hr 06/21/17 09:30 Potassium Chloride 10 Meq/100 Ml IVPB 06/21/17 13:29 Q1H SUSANNA Mesalamine 1,500 mg 06/16/17 18:00 06/21/17 10:44 Pentasa PO 1,500 mg BID SUSANNA Administration Pantoprazole Sodium 40 mg 06/17/17 10:00 06/21/17 10:43 Protonix Inj IVP 40 mg DAILY SUSANNA Administration Tamsulosin HCl 0.4 mg 06/17/17 10:00 06/21/17 10:43 Flomax PO 0.4 mg DAILY SUSANNA Administration Thiamine HCl 100 mg 06/21/17 11:00 Vitamin B1 Inj IV Q8 SUSANNA - Patient Studies Lab Studies: Microbiology Studies 06/20/17 11:00 Blood Culture - Preliminary Blood NO GROWTH AFTER 24 HOURS 06/20/17 10:30 Blood Culture - Preliminary Blood NO GROWTH AFTER 24 HOURS 06/16/17 17:58 Blood Culture - Preliminary Blood-Venous NO GROWTH AFTER 4 DAYS 06/16/17 17:58 Blood Culture - Preliminary Blood-Venous NO GROWTH AFTER 4 DAYS Lab Studies 06/21/17 06/21/17 06/21/17 Range/Units 11:21 08:15 06:00 WBC 13.5 H D (4.5-11.0) 10^3/ul RBC 3.93 (3.5-6.1) 10^6/uL Hgb 11.0 L D (14.0-18.0) g/dL Hct 33.8 L (42.0-52.0) % MCV 86.0 (80.0-105.0) fl MCH 28.0 (25.0-35.0) pg MCHC 32.5 (31.0-37.0) g/dl RDW 16.5 H (11.5-14.5) % Plt Count 236 (120.0-450.0) 10^3/uL MPV 9.9 (7.0-11.0) fl APTT (25.1-36.5) Seconds pCO2 (35-45) mm/Hg pO2 (80-100) mm/Hg HCO3 (21-28) mmol/L ABG pH (7.35-7.45) ABG Total CO2 (22-28) mmol.L ABG O2 Saturation (95-98) % ABG Base Excess (-2.0-3.0) mmol/L ABG Potassium (3.6-5.2) mmol/L Sodium (132-148) mmol/L Chloride (98-107) mmol/L Glucose (75-110) mg/dl Lactate (0.7-2.1) mmol/L FiO2 % Potassium (3.6-5.0) mmol/L Carbon Dioxide (21-33) mmol/L Anion Gap (10-20) BUN (7-21) mg/dL Creatinine (0.8-1.5) mg/dl Est GFR ( Amer) Est GFR (Non-Af Amer) POC Glucose (mg/dL) 96 96 (65-110) mg/dL Random Glucose (70-110) mg/dL Calcium (8.4-10.5) mg/dL Procalcitonin (0.19-0.49) NG/ML Arterial Blood Potassium (3.6-5.2) mmol/L Urine Color (YELLOW) Urine Appearance (CLEAR) Urine pH (4.7-8.0) Ur Specific [place] (1.005-1.035) Urine Protein (<30 mg/dL) mg/dL Urine Glucose (UA) (NEGATIVE) mg/dL Urine Ketones (NEGATIVE) mg/dL Urine Blood (NEGATIVE) Urine Nitrate (NEGATIVE) Urine Bilirubin (NEGATIVE) Urine Urobilinogen (<1 E.U./dL) E.U./dL Ur Leukocyte Esterase (NEGATIVE) Brianna/uL Urine RBC (0-2) /hpf Urine WBC (0-6) /hpf Ur Epithelial Cells (0-5) /hpf Urine Bacteria (NEG) 06/21/17 06/21/17 06/20/17 Range/Units 06:00 05:50 21:59 WBC (4.5-11.0) 10^3/ul RBC (3.5-6.1) 10^6/uL Hgb (14.0-18.0) g/dL Hct (42.0-52.0) % MCV (80.0-105.0) fl MCH (25.0-35.0) pg MCHC (31.0-37.0) g/dl RDW (11.5-14.5) % Plt Count (120.0-450.0) 10^3/uL MPV (7.0-11.0) fl APTT 40.8 H (25.1-36.5) Seconds pCO2 (35-45) mm/Hg pO2 (80-100) mm/Hg HCO3 (21-28) mmol/L ABG pH (7.35-7.45) ABG Total CO2 (22-28) mmol.L ABG O2 Saturation (95-98) % ABG Base Excess (-2.0-3.0) mmol/L ABG Potassium (3.6-5.2) mmol/L Sodium 140 (132-148) mmol/L Chloride 108 H (98-107) mmol/L Glucose (75-110) mg/dl Lactate (0.7-2.1) mmol/L FiO2 % Potassium 3.3 L (3.6-5.0) mmol/L Carbon Dioxide 23 (21-33) mmol/L Anion Gap 12 (10-20) BUN 20 (7-21) mg/dL Creatinine 0.8 (0.8-1.5) mg/dl Est GFR ( Amer) > 60 Est GFR (Non-Af Amer) > 60 POC Glucose (mg/dL) 113 H (65-110) mg/dL Random Glucose 108 (70-110) mg/dL Calcium 9.2 (8.4-10.5) mg/dL Procalcitonin (0.19-0.49) NG/ML Arterial Blood Potassium (3.6-5.2) mmol/L Urine Color (YELLOW) Urine Appearance (CLEAR) Urine pH (4.7-8.0) Ur Specific [place] (1.005-1.035) Urine Protein (<30 mg/dL) mg/dL Urine Glucose (UA) (NEGATIVE) mg/dL Urine Ketones (NEGATIVE) mg/dL Urine Blood (NEGATIVE) Urine Nitrate (NEGATIVE) Urine Bilirubin (NEGATIVE) Urine Urobilinogen (<1 E.U./dL) E.U./dL Ur Leukocyte Esterase (NEGATIVE) Brianna/uL Urine RBC (0-2) /hpf Urine WBC (0-6) /hpf Ur Epithelial Cells (0-5) /hpf Urine Bacteria (NEG) 06/20/17 06/20/17 06/20/17 Range/Units 16:15 16:11 14:00 WBC (4.5-11.0) 10^3/ul RBC (3.5-6.1) 10^6/uL Hgb (14.0-18.0) g/dL Hct (42.0-52.0) % MCV (80.0-105.0) fl MCH (25.0-35.0) pg MCHC (31.0-37.0) g/dl RDW (11.5-14.5) % Plt Count (120.0-450.0) 10^3/uL MPV (7.0-11.0) fl APTT (25.1-36.5) Seconds pCO2 24 L (35-45) mm/Hg pO2 88.0 (80-100) mm/Hg HCO3 16.3 L (21-28) mmol/L ABG pH 7.44 (7.35-7.45) ABG Total CO2 17.0 L (22-28) mmol.L ABG O2 Saturation 98.0 (95-98) % ABG Base Excess -6.0 L (-2.0-3.0) mmol/L ABG Potassium 3.5 L (3.6-5.2) mmol/L Sodium 138.0 (132-148) mmol/L Chloride 108.0 H (98-107) mmol/L Glucose 129 H (75-110) mg/dl Lactate 0.8 (0.7-2.1) mmol/L FiO2 21.0 % Potassium (3.6-5.0) mmol/L Carbon Dioxide (21-33) mmol/L Anion Gap (10-20) BUN (7-21) mg/dL Creatinine (0.8-1.5) mg/dl Est GFR ( Amer) Est GFR (Non-Af Amer) POC Glucose (mg/dL) 118 H (65-110) mg/dL Random Glucose (70-110) mg/dL Calcium (8.4-10.5) mg/dL Procalcitonin (0.19-0.49) NG/ML Arterial Blood Potassium 3.5 L (3.6-5.2) mmol/L Urine Color Light yellow (YELLOW) Urine Appearance Sl cloudy (CLEAR) Urine pH 6.0 (4.7-8.0) Ur Specific [place] 1.020 (1.005-1.035) Urine Protein 30 H (<30 mg/dL) mg/dL Urine Glucose (UA) Negative (NEGATIVE) mg/dL Urine Ketones 40 H (NEGATIVE) mg/dL Urine Blood Large H (NEGATIVE) Urine Nitrate Negative (NEGATIVE) Urine Bilirubin Negative (NEGATIVE) Urine Urobilinogen 0.2 (<1 E.U./dL) E.U./dL Ur Leukocyte Esterase Negative (NEGATIVE) Brianna/uL Urine RBC Tntc (0-2) /hpf Urine WBC 1 - 3 (0-6) /hpf Ur Epithelial Cells 0 - 2 (0-5) /hpf Urine Bacteria Small (NEG) 06/20/17 06/20/17 Range/Units 12:13 10:00 WBC (4.5-11.0) 10^3/ul RBC (3.5-6.1) 10^6/uL Hgb (14.0-18.0) g/dL Hct (42.0-52.0) % MCV (80.0-105.0) fl MCH (25.0-35.0) pg MCHC (31.0-37.0) g/dl RDW (11.5-14.5) % Plt Count (120.0-450.0) 10^3/uL MPV (7.0-11.0) fl APTT (25.1-36.5) Seconds pCO2 (35-45) mm/Hg pO2 (80-100) mm/Hg HCO3 (21-28) mmol/L ABG pH (7.35-7.45) ABG Total CO2 (22-28) mmol.L ABG O2 Saturation (95-98) % ABG Base Excess (-2.0-3.0) mmol/L ABG Potassium (3.6-5.2) mmol/L Sodium (132-148) mmol/L Chloride (98-107) mmol/L Glucose (75-110) mg/dl Lactate (0.7-2.1) mmol/L FiO2 % Potassium (3.6-5.0) mmol/L Carbon Dioxide (21-33) mmol/L Anion Gap (10-20) BUN (7-21) mg/dL Creatinine (0.8-1.5) mg/dl Est GFR ( Amer) Est GFR (Non-Af Amer) POC Glucose (mg/dL) 122 H (65-110) mg/dL Random Glucose (70-110) mg/dL Calcium (8.4-10.5) mg/dL Procalcitonin < 0.05 L (0.19-0.49) NG/ML Arterial Blood Potassium (3.6-5.2) mmol/L Urine Color (YELLOW) Urine Appearance (CLEAR) Urine pH (4.7-8.0) Ur Specific [place] (1.005-1.035) Urine Protein (<30 mg/dL) mg/dL Urine Glucose (UA) (NEGATIVE) mg/dL Urine Ketones (NEGATIVE) mg/dL Urine Blood (NEGATIVE) Urine Nitrate (NEGATIVE) Urine Bilirubin (NEGATIVE) Urine Urobilinogen (<1 E.U./dL) E.U./dL Ur Leukocyte Esterase (NEGATIVE) Brianna/uL Urine RBC (0-2) /hpf Urine WBC (0-6) /hpf Ur Epithelial Cells (0-5) /hpf Urine Bacteria (NEG) Laboratory Results - last 24 hr 06/20/17 06/20/17 06/20/17 10:00 12:13 14:00 WBC RBC Hgb Hct MCV MCH MCHC RDW Plt Count MPV APTT pCO2 24 L pO2 88.0 HCO3 16.3 L ABG pH 7.44 ABG Total CO2 17.0 L ABG O2 Saturation 98.0 ABG Base Excess -6.0 L ABG Potassium 3.5 L Sodium 138.0 Chloride 108.0 H Glucose 129 H Lactate 0.8 FiO2 21.0 Potassium Carbon Dioxide Anion Gap BUN Creatinine Est GFR ( Amer) Est GFR (Non-Af Amer) POC Glucose (mg/dL) 122 H Random Glucose Calcium Procalcitonin < 0.05 L Arterial Blood Potassium 3.5 L Urine Color Urine Appearance Urine pH Ur Specific [place] Urine Protein Urine Glucose (UA) Urine Ketones Urine Blood Urine Nitrate Urine Bilirubin Urine Urobilinogen Ur Leukocyte Esterase Urine RBC Urine WBC Ur Epithelial Cells Urine Bacteria 06/20/17 06/20/17 06/20/17 16:11 16:15 21:59 WBC RBC Hgb Hct MCV MCH MCHC RDW Plt Count MPV APTT pCO2 pO2 HCO3 ABG pH ABG Total CO2 ABG O2 Saturation ABG Base Excess ABG Potassium Sodium Chloride Glucose Lactate FiO2 Potassium Carbon Dioxide Anion Gap BUN Creatinine Est GFR ( Amer) Est GFR (Non-Af Amer) POC Glucose (mg/dL) 118 H 113 H Random Glucose Calcium Procalcitonin Arterial Blood Potassium Urine Color Light yellow Urine Appearance Sl cloudy Urine pH 6.0 Ur Specific [place] 1.020 Urine Protein 30 H Urine Glucose (UA) Negative Urine Ketones 40 H Urine Blood Large H Urine Nitrate Negative Urine Bilirubin Negative Urine Urobilinogen 0.2 Ur Leukocyte Esterase Negative Urine RBC Tntc Urine WBC 1 - 3 Ur Epithelial Cells 0 - 2 Urine Bacteria Small 06/21/17 06/21/17 06/21/17 05:50 06:00 06:00 WBC 13.5 H D RBC 3.93 Hgb 11.0 L D Hct 33.8 L MCV 86.0 MCH 28.0 MCHC 32.5 RDW 16.5 H Plt Count 236 MPV 9.9 APTT 40.8 H pCO2 pO2 HCO3 ABG pH ABG Total CO2 ABG O2 Saturation ABG Base Excess ABG Potassium Sodium 140 Chloride 108 H Glucose Lactate FiO2 Potassium 3.3 L Carbon Dioxide 23 Anion Gap 12 BUN 20 Creatinine 0.8 Est GFR ( Amer) > 60 Est GFR (Non-Af Amer) > 60 POC Glucose (mg/dL) Random Glucose 108 Calcium 9.2 Procalcitonin Arterial Blood Potassium Urine Color Urine Appearance Urine pH Ur Specific [place] Urine Protein Urine Glucose (UA) Urine Ketones Urine Blood Urine Nitrate Urine Bilirubin Urine Urobilinogen Ur Leukocyte Esterase Urine RBC Urine WBC Ur Epithelial Cells Urine Bacteria 06/21/17 06/21/17 08:15 11:21 WBC RBC Hgb Hct MCV MCH MCHC RDW Plt Count MPV APTT pCO2 pO2 HCO3 ABG pH ABG Total CO2 ABG O2 Saturation ABG Base Excess ABG Potassium Sodium Chloride Glucose Lactate FiO2 Potassium Carbon Dioxide Anion Gap BUN Creatinine Est GFR ( Amer) Est GFR (Non-Af Amer) POC Glucose (mg/dL) 96 96 Random Glucose Calcium Procalcitonin Arterial Blood Potassium Urine Color Urine Appearance Urine pH Ur Specific [place] Urine Protein Urine Glucose (UA) Urine Ketones Urine Blood Urine Nitrate Urine Bilirubin Urine Urobilinogen Ur Leukocyte Esterase Urine RBC Urine WBC Ur Epithelial Cells Urine Bacteria Critical Care Progress Note - Nutrition Nutrition: Nutrition Category Date Time Status NPO Diet [DIET] Diets 06/16/17 Dinner Ordered Assessment/Plan - Assessment and Plan (Free Text) Plan: Patient seen and examined on rounds with resident, agree with note with following additions/exceptions: Patient is 86yo male with PMHx of CAD s/p CABG, thoracic aneurysm, AVR, Corhns, BPH, with AMS. Patient currently afebrile, HD stable, comfortable, on exam awake , alert, but does not follow commands, non conversing. Procal negative, all cultures neg thus far. AMS CAD s/p PCI Leukocytosis ABBE Recommend: - supp o2 as needed - cont with antibiotics as per ID - follow up neurology - follow up cultures - repeat CTH, consider an MRI - monitor BUN/Cr - follow up ID - monitor electrolytes - start feeds - monitor in MICU
[2017-06-21] MEDS: Thiamine 100 mg/ml Inj IV SCH ×2 (12:11→19:45)
[2017-06-21] MEDS ORDERED: Potassium Chloride 40 mEq/30 ml LIQ UD PO ONE (13:48)
--- NOTE | 2017-06-21 14:18 | PN ---
DATE: 06/21/2017 CRITICAL CARE PROGRESS NOTE SUBJECTIVE: This 87-year-old male was examined in bed 6, ICU, present were his , son-in-law, and daughter, Ela. The patient remains weak and deconditioned and according to the family confused and nonverbal. He was noted yesterday to have a bump in his creatinine, which I feel is secondary to hydronephrosis and has been treated with Lr catheter placement. Of note, the patient has had no further fever, chills, or complaints of chest pain, but remains with altered mental status and nonverbal according to family. Since my interview yesterday he has had the placement of a NG tube and according to nursing he is receiving medication crushed and flushed through his NG tube. PHYSICAL EXAMINATION: VITAL SIGNS: He remains in a normal sinus rhythm, temperature 98.6, blood pressure 126/67 with respirations of 18 and pulse oximetry of 95%. HEENT: Head is normocephalic, atraumatic. Eyes: No icterus. Ears: Clear. Throat: Noninjected. NECK: Supple. HEART: Regular S1 and S2. LUNGS: Clear. ABDOMEN: Soft. EXTREMITIES: No edema. SKIN: Without rash. NEUROLOGIC: Unchanged. PSYCHOLOGIC: Alert, but confused. VASCULAR: Legs warm to touch. LABORATORY DATA: White count 13,500, previously 18,800, hemoglobin 11, hematocrit 33.8, and platelets 236,000. PTT on IV heparin 40.8. Sodium 140, potassium 3.3, chloride 108, bicarbonate 23, BUN 20, creatinine 0.8, random blood sugar is 96, calcium is normal at 9.2. Random vancomycin level was 11.3. RPR nonreactive. Chest x-ray was reviewed. It shows that his NG tube is in satisfactory position. Abdominal ultrasound was reviewed from yesterday. It shows cholelithiasis, no evidence of acute cholecystitis and right hydronephrosis. Blood cultures at 24 hours show no growth. Stool for Clostridium difficile toxin antigen and toxin are negative. MRSA was negative from a nares and repeat urine culture remains pending. IMPRESSION: This is an 87-year-old male with altered mental status, status post cardiac catheterization, where he had 2 stents placed in the setting of previous cardiac stents with history of coronary artery bypass graft and aortic valve replacement in the distant past and comorbidities of benign prostate hypertrophy with elevated PSA according to family as an outpatient, now with acute renal failure secondary to urinary retention leading to obstructive uropathy, now improved with a Lr catheter placement, also with metabolic encephalopathy, history of irritable bowel syndrome, and peptic ulcer disease with gastroesophageal reflux disease. PLAN: The plan was discussed with family at bedside in ICU, bed 6. We will continue Lr catheter while monitoring I's and O's and the patient is scheduled for a repeat CT of the head because of persistent altered mental status. He will have an echocardiogram completed for completeness sake and remains on aspiration precautions, as well as, NG tube feedings and fall precautions. Medications will be administered via NG tube including Proscar, Plavix, Flomax, Coreg, and aspirin. He will receive parenteral IV heparin drip while monitoring PTT because of history of aortic valve replacement. He continues on IV antibiotics at the present time including meropenem 1 g q.12 hours under the direction of Dr. Rohan Gautam from Infectious Disease. He also has been given potassium supplement parenterally because of hypokalemia and we will continue on gentle IV fluids while monitoring I's and O's and he is wearing antiembolism stockings. He will have serial basic metabolic panels to monitor his renal progress and a repeat magnesium level will be ordered for the a.m. as well. All of the above was discussed in detail. Greater than sixty minutes was spent in the care management, discussion of the patient's progress and review of labs, x-rays, and orders for this patient today and discussion with his family at the bedside. All questions were answered. Melany Hernandez MD [facility]
--- NOTE | 2017-06-21 18:10 | PN ---
DATE: 06/21/2017 CHIEF COMPLAINT: Follow up for altered mental status. SUBJECTIVE: The patient seen, examined at bedside. He is deconditioned. He is mildly confused and intermittently verbal, follow simple commands though. He has low systolic and diastolic blood pressures, which is at baseline. Occult blood cultures at 24 hours shows no growth. Stool for Clostridium difficile toxin antigen and toxin are negative. X-ray was reviewed. PAST MEDICAL HISTORY: Coronary artery disease, status post prior bypass, emergent PCI for vein graft to the LAD in 2007, thoracic ascending aneurysm, AV-valve replacement, hypertension, dyslipidemia, acute diverticulitis, Crohn's disease, BPH, osteoporosis, and arthritis. SOCIAL HISTORY: No illicit drug use, smoking, or EtOH abuse. ALLERGIES: PNEUMOCOCCAL VACCINE. MEDICATIONS: Reviewed by nursing reconciliation sheet. REVIEW OF SYSTEMS: A 14-point review of systems is negative except as per the HPI. FAMILY HISTORY: Noncontributory. PHYSICAL EXAMINATION VITAL SIGNS: Temperature 98, pulse rate of 80, blood pressure 101/57, respiratory rate 20, oxygen saturation 98% via nasal cannula. GENERAL: The patient is in no acute distress. HEENT: Head is atraumatic and normocephalic. PERRLA. Extraocular muscles are intact. NECK: Supple. No JVD. No adenopathy noted. LUNGS: Clear to auscultation. No adventitious sounds. HEART: S1 and S2. Normal rate and rhythm. No murmurs, rubs, or gallops. ABDOMEN: Soft, nontender, and nondistended. Bowel sounds are present. EXTREMITIES: No clubbing. No cyanosis. Peripheral pulses are 2+ felt bilaterally. NEUROLOGIC: The patient is alert and oriented to person, not much to month and place, minimal verbal output. Cranial nerves II through XII intact. Motor exam, slightly increased tone throughout. Moves all extremities equally. No pronator seen. Sensory exam: Withdraws to localized noxious stimulus. Light touch is intact. DTRs are 1+ throughout. Coordination and gait are deferred for now. LABS: WBC is doing trending from 18 to 13.5. Hemoglobin of 11, hematocrit of 32.8, and platelet count of 236. Sodium 140, potassium 3.3, chloride 108, carbon dioxide 23, BUN of 20, creatinine 0.8, and random glucose of 108. ASSESSMENT AND PLAN: This is an 86-year-old male with history of coronary artery disease, status post bypass and emergent PCI of the vein graft to the LAD in 2007, thoracic ascending aneurysm, AV-valve replacement, hypertension, dyslipidemia, acute diverticulitis, Crohn's disease, BPH, osteoporosis, osteoarthritis, who presented with altered mental status and fever of unknown origin. In addition, he also had acute urinary retention with obstructive uropathy which is now improved with Lr catheter placement. Had a transient metabolic encephalopathy and is awake, but is also mildly confused. Two CAT scans have showed no acute intracranial abnormalities. No able to have an MRI of the brain due to heart valve. At this time, he was also found to have low systolic and diastolic blood pressures. His altered mental status also today seems most likely secondary to transient cerebral hypoperfusion to the brain with underlying metabolic derangements. At this time, I recommend: 1. Keep a systolic blood pressure above 120, to a range for 120 to 140s and diastolic of 70 to 80s. 2. Thiamine 100 mg IV q.8 the brain. 3. Maintain oxygen saturation more than 80%. 4. Follow Cardiology in regard to this patient's cardiac status. 5. Monitor electrolytes and correct accordingly. 6. Daily aspirin and Plavix for stroke prevention. Once again, Delirium precautions and avoid night time and sedated medications. Rodney Gentile MD cc:
--- NOTE | 2017-06-21 18:18 | CT ---
PROCEDURE: CT HEAD WITHOUT CONTRAST. HISTORY: AMS COMPARISON: 06/17/2017 TECHNIQUE: Axial computed tomography images were obtained through the head/brain without intravenous contrast. Radiation dose: Total exam DLP = 915.65 mGy-cm. This CT exam was performed using one or more of the following dose reduction techniques: Automated exposure control, adjustment of the mA and/or kV according to patient size, and/or use of iterative reconstruction technique. FINDINGS: HEMORRHAGE: No intracranial hemorrhage. BRAIN: No mass effect or edema. Cortical atrophy, periventricular small vessel disease evidence of old right temporoparietal and posterior parietal areas of infarction. VENTRICLES: Unremarkable. No hydrocephalus. CALVARIUM: Unremarkable. PARANASAL SINUSES: Unremarkable as visualized. No significant inflammatory changes. MASTOID AIR CELLS: Unremarkable as visualized. No inflammatory changes. OTHER FINDINGS: Nasogastric tube identified. IMPRESSION: No acute intracranial abnormalities. No significant findings to account for the clinical presentation. No significant interval change compared to the prior examination(s).
--- NOTE | 2017-06-21 20:23 | PN ---
DATE: 06/21/2017 SUBJECTIVE: Patient is seen early this morning in 128, bed 6. No fevers and no chills. He appears awake. He is much more responsive and he does have an NG tube in. PHYSICAL EXAMINATION: VITAL SIGNS: Temperature is 98, blood pressure is 117/60,respiratory rate of 20, heart rate of 70. HEENT: Unremarkable. NECK: Supple. LUNGS: Decreased breath sounds. HEART: Normal S1, S2. ABDOMEN: Soft and nontender. LABORATORY EXAMINATION: Reveals the patient's white count of 13,500, hemoglobin of 11, platelets of 236. Chemistries results, BUN of 20 and creatinine of 0.8. Patient's procalcitonin is reported to be less than 0.05. Repeat cultures and blood cultures are negative. Urine cultures are negative. Patient does have a Lr catheter now. ASSESSMENT AND PLAN: This is an 86-year-old male with coronary artery disease, myocardial infarction, aortic aneurysm, benign prostatic hypertrophy, history of transient ischemic attack, status post cardiac catheterization. Postprocedure day #5 developed systemic inflammatory response syndrome 3 hours after the procedure with change in mental status and fevers with negative blood cultures, negative urine culture and negative procalcitonin, negative CAT scan of chest and abdomen and currently he has an NG tube in and Lr catheter to be a risk factor for developing nosocomial infections and Dr. Rodney Gentile's note is reviewed. Patient does have an aortic valve replacement and hypertension. We discontinued his meropenem, followed the patient's white count and we will follow with you. Case discussed with the staff and the patient's daughter. Rohan Gautam MD
[2017-06-22] MEDS: Thiamine 100 mg/ml Inj IV SCH ×2 (03:16→06:36)
[2017-06-22 06:06] LABS: BASO # 0.03 K/mm3 (0.0-2.0); BASO % 0.3 % (0.0-3.0); EOS # 0.7 (0.0-0.7); EOS % 6.3 % (1.5-5.0); GRAN # 7.48 (1.4-6.5); HEMOGLOBIN 11.3 g/dL (14.0-18.0); LYMPH # 1.6 (1.2-3.4); LYMPH % 15.4 % (22.0-35.0); MEAN CELL VOLUME 88.5 fl (80.0-105.0); MEAN CORPUSCULAR HEMOGLOBIN 28.8 pg (25.0-35.0); MEAN CORPUSCULAR HGB CONC 32.6 g/dl (31.0-37.0); MEAN PLATELET VOLUME 9.7 fl (7.0-11.0); MONO # 0.9 (0.1-0.6); RBC 3.92 10^6/uL (3.5-6.1); WHITE BLOOD COUNT 10.7 10^3/ul (4.5-11.0)
[2017-06-22 06:34] LABS: ALBUMIN 3.1 g/dL (3.0-4.8); ALT/SGPT 24 U/L (7-56); AST/SGOT 39 U/L (17-59); BLOOD UREA NITROGEN 14 mg/dL (7-21); CALCIUM 8.9 mg/dL (8.4-10.5); GFR AFRICAN-AMERICAN > 60; GFR NON-AFRICAN AMERICAN > 60
[2017-06-22] MEDS: Sodium Chloride 0.9% 1,000 ML IV SCH ×2 (06:37→12:39)
[2017-06-22 07:57] LABS: MAGNESIUM 1.9 mg/dL (1.7-2.2)
--- NOTE | 2017-06-22 08:21 | CP.PCM.PN ---
Subjective - Date & Time of Evaluation Date of Evaluation: 06/22/17 Time of Evaluation: 07:00 - Subjective Subjective: Stable in CCU. Speech and confusion: no change. NGT now. Period of agitation yesterday. No chage in speech or confusion. V/S noted. T = 98.6 RSR/ST Lungs: clear Cor. S1S2 Abd.: soft Ext.: no edema Neuro.: no change I/O= 5312/2650 Labs 06/19 noted. 70, K+= 3.4, Cr+ 0.8 CXR 06/21: NG OK All cultures NG ECG 06/16/17: RSR, ASMI, STTW changes. No change. 3rd CT Head noted: No acute CVA or bleed. No change CT A/P noted: Gallstones, Inflam bowel findings, etc. See report. HIDA Scan normal CT Chest and car. U/S reports noted. Objective - Vital Signs/Intake and Output Vital Signs (last 24 hours): Temp Pulse Resp BP Pulse Ox 98.4 F 82 23 137/59 L 100 06/21/17 18:00 06/22/17 06:00 06/22/17 06:00 06/22/17 06:00 06/22/17 06:00 Intake and Output: 06/22/17 06/22/17 06:59 18:59 Intake Total 2220 Output Total 1000 Balance 1220 - Medications Medications: Current Medications Aspirin (Aspirin Chewable) 81 mg PO DAILY [facility] Last Admin: 06/21/17 10:43 Dose: 81 mg Carvedilol (Coreg) 3.125 mg PO BID [facility] Last Admin: 06/21/17 17:29 Dose: Not Given Clopidogrel Bisulfate (Plavix) 75 mg PO DAILY [facility] Last Admin: 06/21/17 10:45 Dose: 75 mg Finasteride (Proscar) 5 mg PO DAILY [facility] Last Admin: 06/21/17 10:44 Dose: 5 mg Heparin Sodium/Sodium Chloride (Heparin 58435 Units/250ml 1/2 Normal Saline) 25 ,000 units in 250 mls @ 8.001 mls/hr IV .Q24H PRN; Protocol; 12 UNITS/KG/HR PRN Reason: ADJUST RATE PER PROTOCOL Last Admin: 06/21/17 10:47 Dose: 16 units/kg/hr, 10.668 mls/hr Sodium Chloride (Sodium Chloride 0.9%) 1,000 mls @ 150 mls/hr IV .Q6H40M [facility] Last Admin: 06/22/17 06:37 Dose: 150 mls/hr Mesalamine (Pentasa) 1,500 mg PO BID [facility] Last Admin: 06/21/17 19:44 Dose: 1,500 mg Pantoprazole Sodium (Protonix Inj) 40 mg IVP DAILY [facility] Last Admin: 06/21/17 10:43 Dose: 40 mg Tamsulosin HCl (Flomax) 0.4 mg PO DAILY [facility] Last Admin: 06/21/17 10:43 Dose: 0.4 mg Thiamine HCl (Vitamin B1 Inj) 100 mg IV Q8 [facility] Last Admin: 06/22/17 06:36 Dose: 100 mg - Labs Labs: 06/22/17 05:15 06/22/17 05:15 PT 14.4 SECONDS (9.4-12.5) H 06/19/17 05:30 INR 1.31 (0.93-1.08) H 06/19/17 05:30 APTT 70.0 Seconds (25.1-36.5) H 06/22/17 06:40 Assessment and Plan - Assessment and Plan (Free Text) Assessment: AMS/Difficult Speaking S/P PCI procedure: R/O Delerium, Probable Stoke, R/O Adverse medication response, etc Fever, resolved Diarrhea Limiting exertional chest and left arm pain with + nuclear stress test. CAD/CABG/AVR with PCI of SVBG to LAD/Diag. 06/16/17 Remote AL Chronic A/C for remote AVR (St Se valve) H/O TIA's H/O speech problems with prior sepsis TIA's TAA ( ~ 5.6 cms) Crohn's Disease BPH Osteoporosis Spinal Surgery Plan: ICU monitoring As per Neuro., ID, Intensivists, GI, Renal, Uro. AB coverage. Check cultures. Heparin for AVR . Monitor PTT's ASA, Plavix, PO cardiac meds via NGT. Will check echo. Replace K+ Monitor labs: BMP, PTT, sats., I/O , etc.
--- NOTE | 2017-06-22 08:23 | PN ---
DATE: 06/21/2017 SUBJECTIVE: This patient is now having NG tube feeding, more alert. PHYSICAL EXAMINATION: VITAL SIGNS: Temperature is 98.4, pulse is 86, blood pressure is 117/62, respiration is 20, and O2 saturation is 95%. HEENT: Atraumatic. Anicteric. NECK: Supple. HEART: S1 and S2 heard. LUNGS: Bilateral air entry present. ABDOMEN: Soft. There is no tenderness. EXTREMITIES: No cyanosis, no clubbing. The patient has indwelling Lr catheter now. LABORATORY DATA: White cell count has come down to 13.5, hemoglobin 11, hematocrit 33.8, and platelets 236. Chemistry; potassium 3.3, BUN 20, creatinine 0.8. Renal function is improved. IMPRESSION: This is an 87-year-old patient admitted with fever, systemic inflammatory response syndrome, post cardiac catheterization, on antibiotic meropenem, history of Crohn's disease. The patient has a C. difficile in the past, on meropenem. Now, the patient has urinary retention status post Lr catheter now. White cell count has come down. No diarrhea today. We will continue the NG feeding. Continue the antibiotics as per ID. The patient is on IV heparin, history of prosthetic aortic valve replacement, history of coronary artery disease. We will continue to closely follow up and suggest further management based on the clinical course. Daughter was at bedside. I had a detailed discussion with the family. Thank you very much for allowing us to participate in the care of the patient. Saurav Chacon MD
[2017-06-22] MEDS ORDERED: Potassium Chloride 10 mEq ER Tab PO SCH (10:00)
--- NOTE | 2017-06-22 10:36 | CARD ---
APPROVED REPORT EXAM: Two-dimensional and M-mode echocardiogram with Doppler and color Doppler. Other Information Quality : AverageRhythm : INDICATION AMS, R/O SBE,AVR 2D DIMENSIONS Left Atrium (2D)4.2 (1.6-4.0cm)IVSd0.9 (0.7-1.1cm) LVDd5.0 (3.9-5.9cm)PWd1.0 (0.7-1.1cm) M-Mode DIMENSIONS Aortic Root4.00 (2.2-3.7cm) Aortic Valve AoV Peak Qiffxjpv938.0cm/[place] Peak GR.28mmHgLVOT Peak Mwflkcus033.0cm/s LVOT VTI26.90cm Mitral Valve MV E Itfpmebm63.1cm/sMV A Quryfpte87.7cm/sE/A ratio0.7 TDI Lateral E' Peak V11.00cm/sMedial E' Peak V4.97cm/sE/Lateral E'6.1 E/Medial E'13.5 Pulmonary Valve PV Peak Ltjsapbb16.5cm/sPV Peak Grad.2mmHg Tricuspid Valve TR Peak Gxwujrlj819rl/sRAP [id number] Peak Gr.38mmHg [id number] LEFT VENTRICLE The left ventricle is normal size. There is mild concentric left ventricular hypertrophy. Left ventricle systolic function is mildly impaired. The apex appears hypokinetic. RIGHT VENTRICLE The right ventricle is normal size. ATRIA The left atrium size is normal. The right atrium size is normal. The interatrial septum is intact with no evidence for an atrial septal defect. AORTIC VALVE The prosthetic aortic valve appears normal. MITRAL VALVE The mitral valve is mildly thickened but opens well. TRICUSPID VALVE The tricuspid valve is normal in structure. There is moderate tricuspid regurgitation. There is mild-moderate pulmonary hypertension. PULMONIC VALVE The pulmonic valve is not well visualized. GREAT VESSELS The aortic root is normal in size. PERICARDIAL EFFUSION There is no pericardial effusion. <Conclusion> The left ventricle is normal size. There is mild concentric left ventricular hypertrophy. Left ventricle systolic function is mildly impaired. The apex appears hypokinetic. The prosthetic aortic valve appears normal. There is moderate tricuspid regurgitation. There is mild-moderate pulmonary hypertension. No vegetation seen.
--- NOTE | 2017-06-22 12:07 | CP.PCM.PN ---
Subjective - Date & Time of Evaluation Date of Evaluation: 06/22/17 Time of Evaluation: 08:00 - Subjective Subjective: Pt seen and examined, remains awake, alert, but does not converse. Repat CTH yesterday neg for acute CVA. Objective - Vital Signs/Intake and Output Vital Signs (last 24 hours): Temp Pulse Resp BP Pulse Ox 98.4 F 82 23 137/59 L 100 06/21/17 18:00 06/22/17 06:00 06/22/17 06:00 06/22/17 06:00 06/22/17 06:00 Intake and Output: 06/22/17 06/22/17 06:59 18:59 Intake Total 2220 Output Total 1000 Balance 1220 - Medications Medications: Current Medications Aspirin (Aspirin Chewable) 81 mg PO DAILY [facility] Last Admin: 06/21/17 10:43 Dose: 81 mg Carvedilol (Coreg) 3.125 mg PO BID [facility] Last Admin: 06/21/17 17:29 Dose: Not Given Clopidogrel Bisulfate (Plavix) 75 mg PO DAILY [facility] Last Admin: 06/21/17 10:45 Dose: 75 mg Finasteride (Proscar) 5 mg PO DAILY [facility] Last Admin: 06/21/17 10:44 Dose: 5 mg Heparin Sodium/Sodium Chloride (Heparin 96424 Units/250ml 1/2 Normal Saline) 25 ,000 units in 250 mls @ 8.001 mls/hr IV .Q24H PRN; Protocol; 12 UNITS/KG/HR PRN Reason: ADJUST RATE PER PROTOCOL Last Admin: 06/21/17 10:47 Dose: 16 units/kg/hr, 10.668 mls/hr Sodium Chloride (Sodium Chloride 0.9%) 1,000 mls @ 150 mls/hr IV .Q6H40M [facility] Last Admin: 06/22/17 06:37 Dose: 150 mls/hr Mesalamine (Pentasa) 1,500 mg PO BID [facility] Last Admin: 06/21/17 19:44 Dose: 1,500 mg Pantoprazole Sodium (Protonix Inj) 40 mg IVP DAILY [facility] Last Admin: 06/21/17 10:43 Dose: 40 mg Potassium Chloride (Klor-Con 10) 30 meq PO BID [facility] Tamsulosin HCl (Flomax) 0.4 mg PO DAILY [facility] Last Admin: 06/21/17 10:43 Dose: 0.4 mg Thiamine HCl (Vitamin B1 Inj) 100 mg IV Q8 [facility] Last Admin: 06/22/17 06:36 Dose: 100 mg - Labs Labs: 06/22/17 05:15 06/22/17 05:15 PT 14.4 SECONDS (9.4-12.5) H 06/19/17 05:30 INR 1.31 (0.93-1.08) H 06/19/17 05:30 APTT 70.0 Seconds (25.1-36.5) H 06/22/17 06:40 - Constitutional Appears: Well, Non-toxic, No Acute Distress - Head Exam Head Exam: NORMAL INSPECTION - ENT Exam ENT Exam: Mucous Membranes Moist - Respiratory Exam Respiratory Exam: Clear to Ausculation Bilateral, NORMAL BREATHING PATTERN - Cardiovascular Exam Cardiovascular Exam: REGULAR RHYTHM, +S1, +S2 - GI/Abdominal Exam GI & Abdominal Exam: Soft, Normal Bowel Sounds - Extremities Exam Extremities Exam: Full ROM - Neurological Exam Neurological Exam: Alert, Awake - Psychiatric Exam Psychiatric exam: Normal Affect Assessment and Plan - Assessment and Plan (Free Text) Assessment: Patient is 86yo male with PMHx of CAD s/p CABG, thoracic aneurysm, AVR, Corhns, BPH, with AMS. Patient currently afebrile, HD stable, comfortable, on exam awake, alert, but does not follow commands, non conversing. Procal negative, all cultures neg thus far. CTH neg x 2 AMS CAD s/p PCI Leukocytosis ABBE Recommend: - supp o2 as needed - cont with antibiotics as per ID - follow up neurology - follow up cultures - Heparin drip - monitor BUN/Cr - follow up ID - monitor electrolytes - cont with feeds - DC see - transfer to telemetry
[2017-06-22] MEDS: Mesalamine ER Cap 500 MG PO SCH ×2 (12:31→18:11)
[2017-06-22] MEDS: Heparin25000 units/250ml 1/2NS 25,000 UNITS/250 ML BAG IV PRN (12:42)
--- NOTE | 2017-06-22 16:13 | PN ---
DATE: 06/22/2017 SUBJECTIVE: This 87-year-old male was examined in ICU bed 6. His and daughter, Ela were present. The patient remains more alert, but confused. He is unable to follow verbal commands but his eyes are open and he is responsive to tactile stimulus. His NG tube and Lr catheter remained in place and the patient remains bedridden. 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 PHYSICAL EXAMINATION: VITAL SIGNS: Temperature was 98.4, respirations of 17, pulse of 83, and blood pressure of 137/59. Pulse oximetry of 100%. HEENT: Head: Normocephalic and atraumatic. Eyes: No icterus. Ears: Clear. Throat: Noninjected. NECK: Supple. CARDIOVASCULAR: Heart is regular S1 and S2. LUNGS: Clear. GASTROINTESTINAL: Abdomen is soft. EXTREMITIES: No edema. SKIN: Without rash. NEUROLOGICAL: Alert, but confused. VASCULAR: Legs are warm to touch. PSYCHOLOGICAL: Confused. LABORATORY DATA: White count of 10,700, previously 13,500, hemoglobin of 11.3, hematocrit of 34.7, and platelets of 224,000. PTT is 70 on IV heparin. Sodium is 141, potassium is 3.4, chloride is 110, bicarb is 27, BUN is 14, and creatinine is 0.8. Random blood sugar is 113. All liver function testing was normal including bilirubin of 0.5, AST of 39, ALT of 24 and alkaline phosphatase of 51. RPR is nonreactive. DIAGNOSTIC DATA: Followup head CT dated 06/21/2017 shows no acute intracranial abnormalities, no significant findings and no obvious stroke. Chest x-ray reviewed from 06/20/2017 shows NG tube is in proper position, no active disease and no obvious infiltrates. Urine output was 1650 mL yesterday. IMPRESSION: He is an 87-year-old male with multiple medical problems including acute renal failure secondary to urinary retention with right hydronephrosis in the setting of benign prostate hypertrophy and history of elevated PSA levels without prostate biopsy, now with urinary retention in the setting of bedridden status secondary to altered mental status after a cardiac catheterization during which the patient had two additional stents placed, now has a total of four stents and a history of atherosclerotic heart disease, status post myocardial infarction with history of coronary artery bypass and aortic valve replacement. With comorbidities, postprocedure metabolic encephalopathy, altered mental status, leukocytosis with all cultures negative to date. Also with an absent swallowing reflex and need for nasogastric and Lr catheter at present. PLAN: The plan is discussed with nursing, the patient and family at bedside as well as Dr. Fuentes from Cardiology and co-consultants including Intensive Care will be to maintain the Lr catheter for the time being until the patient is out of bed to chair and able to cooperate with voiding trial. The patient also requires NG tube at this point in time because of a absent gag and the need for medication to be administered through the NG tube including Ecotrin, Coreg, Flomax, potassium, Pentasa, Plavix, Proscar, and thiamine. The patient continues on IV heparin protocol. He remains n.p.o., but is receiving and NG tube feeds. He remains on aspiration and fall precautions and will need bedside physical therapy and speech therapy for swallowing exercises. The patient continues to have serial labs and all of the above was discussed in detail with the patient, nursing and family at bedside. All questions were answered. Overall prognosis though poor, remains stable at present Melany Hernandez MD MTDD
--- NOTE | 2017-06-22 16:53 | PN ---
DATE: 06/22/2017 SUBJECTIVE: The patient is in bed in no acute distress, nontoxic, was seen earlier this morning. He is awake. He is responsive, he looks at and acknowledges by eye movements and facial gestures, but does not verbalize. PHYSICAL EXAMINATION: VITAL SIGNS: Temperature is 98, blood pressure is 130/50, and respiratory rate of 16. HEENT: Unremarkable. NECK: Supple. LUNGS: Have decreased breath sounds. HEART: Normal S1, S2. ABDOMEN: Soft and nontender. LABORATORY DATA: Reveals white count of 10,000, hemoglobin 11, and platelets of 224. Chemistries reveals BUN of 14 and creatinine of 0.8 and the procalcitonin to be negative. The patient's creatinine today is 0.8. Urinalysis is noted and microbiology reveals cultures are negative. Review of orders reveals the patient to be off of antibiotics. ASSESSMENT AND PLAN: An 86-year-old male seen earlier this morning in the ICU with history of coronary artery disease, myocardial infarction, aortic aneurysm, benign prostatic hypertrophy, history of transient ischemic attack, history of status post cardiac catheterization. The patient came in for elective cardiac cath and now it is postprocedure day #6. The patient developed fevers and change of mental status 3 hours after the procedure and all cultures negative, blood, urine, two procalcitonins have been negative. CAT scan of the chest is negative. CAT scan of the abdomen is negative, now currently off of antibiotics. The patient also developed acute kidney injury from urinary retention, and the patient does have an NG tube and Lr catheter. We would like to remove both. The patient is at risk for developing nosocomial infections. Rohan Gautam MD
[2017-06-22] MEDS: Potassium Chloride 40 mEq/30 ml LIQ UD PO SCH (18:11)
--- NOTE | 2017-06-22 18:50 | PN ---
DATE: 06/22/2017 CHIEF COMPLAINT: Follow up for altered mental status. SUBJECTIVE: The patient seen and examined at bedside. He is sitting up at the edge of the bed, shaking my hands, moving all extremities, following simple commands. His blood pressures are much more stable today. He has a nasogastric tube in placed due to weak gag reflex. No acute events overnight. PAST MEDICAL HISTORY: Coronary artery disease, status post prior bypass, emergent for PCI for vein graft to the LAD in 2007, thoracic ascending aneurysm, AV valve replacement, hypertension, dyslipidemia, acute diverticulosis, Crohn's disease, BPH, osteoporosis, arthritis. SOCIAL HISTORY: No illicit drug use, cocaine or EtOH abuse. ALLERGIES: ALLERGIC TO PNEUMOCOCCAL VACCINE. MEDICATIONS: Reviewed by nurse practitioner reconciliation sheet. REVIEW OF SYSTEM: A 14-point review of system negative except for the HPI. FAMILY HISTORY: Noncontributory. PHYSICAL EXAMINATION GENERAL: The patient sitting up at the edge of the bed, in no acute distress. VITAL SIGNS: Afebrile. Pulse rate 85, blood pressure of 142/76, respiratory rate of 21. HEENT: Atraumatic and normocephalic. PERRLA. Extraocular muscles intact. NECK: Supple. No JVD. No adenopathy noted. HEART: S1 and S2. Normal rate, rhythm. No murmur, rubs or gallops. LUNGS: Clear to auscultation. No adventitious sounds. ABDOMEN: Soft, nontender, nondistended. Bowel sounds present. EXTREMITIES: No clubbing. No cyanosis. Peripheral pulses 2+ bilaterally. NEUROLOGIC: The patient is alert and oriented to person and place, not much for month and year, has much more verbal output today, though speech is hypophonic. Cranial II through XII are intact. Motor exam: Slightly increased tone throughout. Moves all extremities equally. No pronator seen. Sensory exam: Withdraws to localized noxious stimulus. Light touch is intact. proprioception bilaterally. DTRs are 1+ throughout. Coordination to finger and nose intact. Gait deferred for now. LABORATORY DATA: Sodium is 141, potassium 3.4, chloride of 110, carbon dioxide 27, BUN of 14, creatinine 0.8, random glucose 113. ASSESSMENT AND PLAN: This is a 86-year-old male with past medical history of coronary artery disease status post bypass and emergent PCI of the vein graft to the left anterior descending in 2007, thoracic ascending aortic aneurysm, AV valve replacement, hypertension, dyslipidemia, acute diverticulitis, Crohn's disease, benign prostatic hypertrophy, osteoporosis, and osteoarthritis, who presented with altered mental status, fever unknown origin. In addition status post anesthesia undergoing cardiac procedure and developed also acute urinary retention with obstructive uropathy which is now improved with Lr catheter placement and this is draining adequate amount of urine. He had a transient toxic metabolic encephalopathy and had transient cerebral hypoperfusion to the brain which is making him altered. Currently, he is much, much better. He is following command moving all extremities, though his speech is hypophonic, but he is able to give small slow words verbal output. RECOMMENDATIONS: At this we recommend: 1. Keep his blood pressure above 120 range between 120-140 and diastolic between 70-80s. 2. Continue with thiamine 100 mg IV q. 8 hours. 3. Delirium precautions. 4. Follow up with cardiology, cardiac status. 5. Monitor electrolytes and correct accordingly. 6. Aspirin and Plavix for stroke prevention. 7. Avoid any sedative medications. 8. Physical and occupational therapy and frequent orientation throughout the day. Rodney Gentile MD
--- NOTE | 2017-06-23 01:41 | PN ---
DATE: 06/22/2017 SUBJECTIVE: This patient was seen and evaluated earlier today. The patient appears more alert and responding to verbal commands. PHYSICAL EXAMINATION VITAL SIGNS: Temperature is 98.1, pulse 87, and blood pressure is 126/66. HEENT: Atraumatic. Anicteric. NECK: Supple. HEART: S1 and S2 heard. LUNGS: Bilateral air entry present. Scattered rhonchi present. basal air entry. ABDOMEN: Soft. There is no tenderness. LABORATORY DATA: Hemoglobin 11.3, hematocrit 34.7, WBC 10.7, platelets 224. BUN 14, creatinine 0.8, potassium 3.4. IMPRESSION AND PLAN: This is an 86-year-old patient with Crohn's disease, on Pentasa, admitted with fever and change of mental status. The patient is on nasogastric tube feeding. The patient is more alert. Continue the nasogastric tube feeding. The patient is off the antibiotics now as per ID. Acute kidney injury improving and urinary retention. Infectious disease note appreciated. Reviewed. The patient is not more alert to start on p.o. feeding, nasogastric tube can be removed once the patient's mental status improves and able to swallow. We will continue to closely follow up his care. I have suggested further management based on the clinical course. I have a detailed discussion with the patient's daughter who was at bedside. Saurav Chacon MD [place]
[2017-06-23 06:33] LABS: BASO # 0.03 K/mm3 (0.0-2.0); BASO % 0.3 % (0.0-3.0); EOS # 0.5 (0.0-0.7); GRAN # 6.98 (1.4-6.5); GRAN % 70.6 % (50.0-68.0); HEMOGLOBIN 11.6 g/dL (14.0-18.0); LYMPH # 1.7 (1.2-3.4); LYMPH % 16.7 % (22.0-35.0); MEAN CELL VOLUME 88.8 fl (80.0-105.0); MEAN CORPUSCULAR HGB CONC 32.7 g/dl (31.0-37.0); MONO # 0.7 (0.1-0.6); MONO % 7.4 % (1.0-6.0); RED CELL DISTRIBUTION WIDTH 16.5 % (11.5-14.5); WHITE BLOOD COUNT 9.9 10^3/ul (4.5-11.0)
[2017-06-23 07:29] LABS: ALB/GLOB RATIO 0.9 (1.1-1.8); ALBUMIN 3.3 g/dL (3.0-4.8); ALT/SGPT 33 U/L (7-56); AST/SGOT 30 U/L (17-59); BLOOD UREA NITROGEN 10 mg/dL (7-21); CALCIUM 9.3 mg/dL (8.4-10.5); GFR AFRICAN-AMERICAN > 60; GFR NON-AFRICAN AMERICAN > 60; MAGNESIUM 1.8 mg/dL (1.7-2.2)
[2017-06-23] MEDS: Sodium Chloride 0.9% 1,000 ML IV SCH (07:50)
[2017-06-23] MEDS: Thiamine 100 mg/ml Inj IV SCH ×3 (07:57→22:35)
--- NOTE | 2017-06-23 08:23 | CP.PCM.PN ---
Subjective - Date & Time of Evaluation Date of Evaluation: 06/23/17 Time of Evaluation: 07:00 - Subjective Subjective: Stable in CCU. Speech and confusion: Brief "lucid moments" according to daughter this AM. V/S noted. T = 98.6 RSR/ST Lungs: clear Cor. S1S2 Abd.: soft Ext.: no edema Neuro.: no change I/O= 382/1325 recorded Labs noted. PTT = 73, K+= 3.5 CXR 06/22: not read yet. Looks OK to me. Echo 06/21: Mild LVD with LVH, Nl AVR, mod. TR, mild/mod PH. No veg. seen. All cultures NG ECG 06/16/17: RSR, ASMI, STTW changes. No change. 3rd CT Head noted: No acute CVA or bleed. No change CT A/P noted: Gallstones, Inflam bowel findings, etc. See report. HIDA Scan normal CT Chest and car. U/S reports noted. Objective - Vital Signs/Intake and Output Vital Signs (last 24 hours): Temp Pulse Resp BP Pulse Ox 97.6 F 96 H 18 124/56 L 100 06/23/17 06:00 06/23/17 06:00 06/23/17 05:00 06/23/17 05:00 06/23/17 05:00 Intake and Output: 06/23/17 06/23/17 06:59 18:59 Intake Total 132 Output Total 1325 Balance -1193 - Medications Medications: Current Medications Aspirin (Aspirin Chewable) 81 mg PO DAILY [facility] Last Admin: 06/22/17 12:30 Dose: 81 mg Carvedilol (Coreg) 3.125 mg PO BID [facility] Last Admin: 06/22/17 18:13 Dose: 3.125 mg Clopidogrel Bisulfate (Plavix) 75 mg PO DAILY [facility] Last Admin: 06/22/17 12:30 Dose: 75 mg Finasteride (Proscar) 5 mg PO DAILY [facility] Last Admin: 06/22/17 12:30 Dose: 5 mg Heparin Sodium/Sodium Chloride (Heparin 53034 Units/250ml 1/2 Normal Saline) 25 ,000 units in 250 mls @ 8.001 mls/hr IV .Q24H PRN; Protocol; 12 UNITS/KG/HR PRN Reason: ADJUST RATE PER PROTOCOL Last Admin: 12/28/17 12:42 Dose: 16 units/kg/hr, 10.668 mls/hr Sodium Chloride (Sodium Chloride 0.9%) 1,000 mls @ 50 mls/hr IV .Q20H [facility] Last Admin: 06/23/17 07:50 Dose: 50 mls/hr Mesalamine (Pentasa) 1,500 mg PO BID [facility] Last Admin: 06/22/17 18:11 Dose: 1,500 mg Pantoprazole Sodium (Protonix Inj) 40 mg IVP DAILY [facility] Last Admin: 06/22/17 12:33 Dose: 40 mg Potassium Chloride (Potassium Chloride Oral Soln) 40 meq PO BID [facility] Last Admin: 06/22/17 18:11 Dose: 40 meq Tamsulosin HCl (Flomax) 0.4 mg PO DAILY [facility] Last Admin: 06/22/17 12:28 Dose: 0.4 mg Thiamine HCl (Vitamin B1 Inj) 100 mg IV Q8 [facility] Last Admin: 06/23/17 07:57 Dose: 100 mg - Labs Labs: 06/23/17 05:30 06/23/17 05:30 PT 14.4 SECONDS (9.4-12.5) H 06/19/17 05:30 INR 1.31 (0.93-1.08) H 06/19/17 05:30 APTT 73.3 Seconds (25.1-36.5) H 06/23/17 05:30 Assessment and Plan - Assessment and Plan (Free Text) Assessment: AMS/Difficult Speaking S/P PCI procedure: R/O Delerium, Probable Stoke, R/O Adverse medication response, etc Fever, resolved Diarrhea Limiting exertional chest and left arm pain with + nuclear stress test. CAD/CABG/AVR with PCI of SVBG to LAD/Diag. 06/16/17 Remote TX Chronic A/C for remote AVR (St Se valve) H/O TIA's H/O speech problems with prior sepsis TIA's TAA ( ~ 5.6 cms) Crohn's Disease BPH Osteoporosis Spinal Surgery Plan: Tel bed. As per Neuro., ID, GI, Renal, Uro. Heparin for AVR . Monitor PTT's ASA, Plavix, PO cardiac meds via NGT. Replace K+ Monitor labs: BMP, PTT, sats., I/O , etc. 1:1 sitter Case D/W daughters yesterday and this AM.
--- NOTE | 2017-06-23 08:44 | RAD ---
HISTORY: ng tube placement verification COMPARISON: 06/20/2017 FINDINGS: LUNGS: No active pulmonary disease. PLEURA: No significant pleural effusion identified, no pneumothorax apparent. CARDIOVASCULAR: Cardiomegaly. No evidence of acute, significant cardiovascular disease. OSSEOUS STRUCTURES: No significant abnormalities. VISUALIZED UPPER ABDOMEN: Normal. OTHER FINDINGS: Satisfactory repositioning of nasogastric tube coiled in the stomach. IMPRESSION: No active pulmonary disease. Satisfactory position of nasogastric tube.
--- NOTE | 2017-06-23 09:58 | PN ---
DATE: 06/23/2017 SUBJECTIVE: The patient is in bed, in no acute distress, nontoxic. PHYSICAL EXAMINATION: VITAL SIGNS: Temperature is 98, blood pressure is 120/50, respiratory rate of 16. HEENT: Unremarkable. NECK: Supple. LUNGS: Decreased breath sounds. HEART: Normal S1, S2. ABDOMEN: Soft. LABORATORY DATA: Reveals a white count of 9.9, hemoglobin of 11, platelets of 256. Chemistries reveals a BUN of 10, creatinine of 0.7. Urinalysis is noted. Toxicology is noted. Serology is reviewed. Microbiology reveals a cultures are negative. Dr. Fuentes's note from this morning is reviewed. Dr. Chacon's note from yesterday is reviewed. The patient had a chest x-ray yesterday, which was read by Dr. Neno Dalton. No active pulmonary disease. Satisfactory position of the nasogastric tube. Dr. Rodney Gentile's note is reviewed. ASSESSMENT AND PLAN: This is an 86-year-old male with past medical history significant for coronary artery disease, myocardial infarction, aortic aneurysm, benign prostatic hypertrophy, transient ischemic attack. The patient has a history of aortic valve replacement since 11/2016 with coronary artery bypass graft, history of hemorrhoidectomy. He was admitted for elective cardiac catheterization on 06/16/2017. Three hours later after cardiac catheterization, the patient has an acute change of mental status and fever, which was up to 102.7 and all workup including cultures, procalcitonin x2, blood cultures, urine cultures, sputum cultures, CAT scan of the chest, CAT scan of the abdomen, all workup is negative for any finding in the area of infection since the episode only happened 3 hours after the procedure. Currently, he is more awake. He has periods of confusion, still he is afebrile. White count is normal. He is off of antibiotics. He does have nasogastric tube. He does have a Lr catheter which is a risk factor for developing nosocomial infections. Case discussed with the patient's daughter this morning at length. We will follow with you. Rohan Gautam MD
[2017-06-23] MEDS: Potassium Chloride 40 mEq/30 ml LIQ UD PO SCH ×2 (10:28→18:25)
[2017-06-23] MEDS: Mesalamine ER Cap 500 MG PO SCH ×3 (10:33→18:25)
[2017-06-23] MEDS: Heparin25000 units/250ml 1/2NS 25,000 UNITS/250 ML BAG IV PRN (11:09)
--- NOTE | 2017-06-23 13:49 | PN ---
DATE: 06/23/2017 SUBJECTIVE: This 87-year-old male was examined at the bedside in the presence of his family. He is in ICU bed 6. He remains nonverbal and confused. He is being followed by Neurology and has metabolic encephalopathy and delirium status post coronary catheterization, during which time the patient had two additional coronary artery stents placed in the setting of atherosclerotic heart disease. The patient had an episode of acute renal failure secondary to urinary retention in the setting of benign prostatic hypertrophy and now is draining clear yellow urine from his Lr catheter. Of note, his urinary output is 1325 mL over the past 24 hours. There have been no reports of fever or chills. The patient is currently off all antibiotics. He requires an NG tube because of an absent gag and swallowing difficulty. He is being followed by speech and swallowing therapy on a daily basis. PHYSICAL EXAMINATION: GENERAL: At present, he remains in a normal sinus rhythm on the rehabilitation program coordinator. VITAL SIGNS: Temperature is 97.6, respirations are 18, pulse is 71 and blood pressure is 124/56 with a pulse ox of 100%. HEENT: Head: Normocephalic and atraumatic. Eyes: No icterus. Ears: Clear. Throat: Noninjected. NECK: Supple. CARDIOVASCULAR: Heart is regular S1 and S2. LUNGS: Clear. GASTROINTESTINAL: Abdomen is soft. EXTREMITIES: No edema. SKIN: Without rash. PSYCHOLOGICAL: Confused. VASCULAR: Legs warm to touch. NEUROLOGIC: Moves all four extremities. LABORATORY DATA: White count is 9900, hemoglobin is 11.6, hematocrit is 35.5, and platelets are 256,000, PTT is 73.3 on IV heparin. Sodium is 137, potassium is 3.5, chloride is 101, bicarbonate is 31, BUN is 10, creatinine is 0.7, and random blood sugar is 121. Phosphorous is 2.9. Magnesium is 1.8. Bilirubin is 0.6, AST is 30, ALT is 33, and alkaline phosphatase is 56. Microbiology report shows urine culture with no growth from 06/20/2017. Blood cultures no growth at three days. IMPRESSION: This is an 87-year-old male with acute renal failure in the setting of urinary retention secondary to benign prostatic hypertrophy and with comorbidities of recently placed two coronary artery stents for atherosclerotic heart disease in the setting of coronary artery bypass graft, previous coronary artery stents and aortic valve replacement surgery, now with acute metabolic encephalopathy, delirium, rule out stroke, anemia of acute illness, history of chronically elevated prostate specific antigen, history of Crohn's disease. PLAN: The plan will be to continue NG tube feeds as outlined. The patient will be followed daily by speech therapy regarding swallowing evaluation. He continues on medication through his NG tube including thiamine, Proscar, potassium chloride, Plavix, Pentasa, Flomax, Coreg, and Ecotrin. He remains on IV heparin drip while monitoring PTT levels. He is tolerating IV Protonix. He will have serial labs. He is off all antibiotics as per Infectious Diseases and will have repeat comprehensive metabolic panel and CBC in the a.m. Once the patient is deemed safe to swallow and mentally alert, he will be given a voiding trial and all of the above was discussed in detail with the patient and family at the bedside. This case has been reviewed as well with python consultant, Dr. Torres, and corporate licensed broker, Dr. Fuentes, Dr. Rodney Gentile, neurologist and Dr. Rohan Gautam, Infectious Diseases. Overall prognosis though poor, is stable at present Melany Hernandez MD MTDD
--- NOTE | 2017-06-23 15:04 | CP.PCM.PN ---
Subjective - Date & Time of Evaluation Date of Evaluation: 06/23/17 Time of Evaluation: 10:30 - Subjective Subjective: DATE: 06/23/2017 CHIEF COMPLAINT: Follow up for altered mental status. SUBJECTIVE: The patient seen and examined at bedside. He is sitting up at the edge of the bed, shaking my hands, moving all extremities, following simple commands. His blood pressures are much more stable today. He has a nasogastric tube in placed due to weak gag reflex. No acute events overnight. PAST MEDICAL HISTORY: Coronary artery disease, status post prior bypass, emergent for PCI for vein graft to the LAD in 2007, thoracic ascending aneurysm, AV valve replacement, hypertension, dyslipidemia, acute diverticulosis, Crohn's disease, BPH, osteoporosis, arthritis. SOCIAL HISTORY: No illicit drug use, cocaine or EtOH abuse. ALLERGIES: ALLERGIC TO PNEUMOCOCCAL VACCINE. MEDICATIONS: Reviewed by nurse practitioner reconciliation sheet. REVIEW OF SYSTEM: A 14-point review of system negative except for the HPI. FAMILY HISTORY: Noncontributory. PHYSICAL EXAMINATION GENERAL: The patient sitting up at the edge of the bed, in no acute distress. VITAL SIGNS: Afebrile. REVIEWED HEENT: Atraumatic and normocephalic. PERRLA. Extraocular muscles intact. NECK: Supple. No JVD. No adenopathy noted. HEART: S1 and S2. Normal rate, rhythm. No murmur, rubs or gallops. LUNGS: Clear to auscultation. No adventitious sounds. ABDOMEN: Soft, nontender, nondistended. Bowel sounds present. EXTREMITIES: No clubbing. No cyanosis. Peripheral pulses 2+ bilaterally. NEUROLOGIC: The patient is alert and oriented to person and place, not much for month and year, has much more verbal output today, though speech is hypophonic. Cranial II through XII are intact. Motor exam: Slightly increased tone throughout. Moves all extremities equally. No pronator seen. Sensory exam: Withdraws to localized noxious stimulus. Light touch is intact. proprioception bilaterally. DTRs are 1+ throughout. Coordination to finger and nose intact. Gait deferred for now. LABORATORY DATA: REVIEWED ASSESSMENT AND PLAN: This is a 86-year-old male with past medical history of coronary artery disease status post bypass and emergent PCI of the vein graft to the left anterior descending in 2007, thoracic ascending aortic aneurysm, AV valve replacement, hypertension, dyslipidemia, acute diverticulitis, Crohn's disease, benign prostatic hypertrophy, osteoporosis, and osteoarthritis, who presented with altered mental status, fever unknown origin. In addition status post anesthesia undergoing cardiac procedure and developed also acute urinary retention with obstructive uropathy which is now improved with Lr catheter placement and this is draining adequate amount of urine. He had a transient toxic metabolic encephalopathy and had transient cerebral hypoperfusion to the brain which is making him altered. Currently, he is much, much better. He is following command moving all extremities, though his speech is hypophonic, but he is able to give small slow words verbal output. RECOMMENDATIONS: At this we recommend: 1. Keep his blood pressure above 120 range between 120-140 and diastolic between 70-80s. 2. Continue with thiamine 100 mg IV q. 8 hours. 3. Delirium precautions. 4. Follow up with cardiology, cardiac status. 5. Monitor electrolytes and correct accordingly. 6. Aspirin and Plavix for stroke prevention. 7. Avoid any sedative medications. 8. Physical and occupational therapy and frequent orientation throughout the day. 9. BARIUM SWALLOW. Rodney Gentile MD Objective - Vital Signs/Intake and Output Vital Signs (last 24 hours): Temp Pulse Resp BP Pulse Ox 97.6 F 77 18 122/76 100 06/23/17 06:00 06/23/17 10:24 06/23/17 05:00 06/23/17 10:24 06/23/17 05:00 Intake and Output: 06/23/17 06/23/17 06:59 18:59 Intake Total 132 250 Output Total 1325 Balance -1193 250 - Medications Medications: Current Medications Aspirin (Aspirin Chewable) 81 mg PO DAILY [facility] Last Admin: 06/23/17 10:25 Dose: 81 mg Carvedilol (Coreg) 3.125 mg PO BID [facility] Last Admin: 06/23/17 10:24 Dose: 3.125 mg Clopidogrel Bisulfate (Plavix) 75 mg PO DAILY [facility] Last Admin: 06/23/17 10:23 Dose: 75 mg Finasteride (Proscar) 5 mg PO DAILY [facility] Last Admin: 06/23/17 10:31 Dose: 5 mg Heparin Sodium/Sodium Chloride (Heparin 19636 Units/250ml 1/2 Normal Saline) 25 ,000 units in 250 mls @ 8.001 mls/hr IV .Q24H PRN; Protocol; 12 UNITS/KG/HR PRN Reason: ADJUST RATE PER PROTOCOL Last Admin: 06/23/17 11:09 Dose: 16 units/kg/hr, 10.668 mls/hr Sodium Chloride (Sodium Chloride 0.9%) 1,000 mls @ 50 mls/hr IV .Q20H [facility] Last Admin: 06/23/17 07:50 Dose: 50 mls/hr Mesalamine (Pentasa) 1,500 mg PO BID [facility] Last Admin: 06/23/17 10:33 Dose: Not Given Pantoprazole Sodium (Protonix Inj) 40 mg IVP DAILY [facility] Last Admin: 06/23/17 10:31 Dose: 40 mg Potassium Chloride (Potassium Chloride Oral Soln) 40 meq PO BID [facility] Last Admin: 06/23/17 10:28 Dose: 40 meq Tamsulosin HCl (Flomax) 0.4 mg PO DAILY [facility] Last Admin: 06/23/17 10:23 Dose: 0.4 mg Thiamine HCl (Vitamin B1 Inj) 100 mg IV Q8 [facility] Last Admin: 06/23/17 07:57 Dose: 100 mg - Labs Labs: 06/23/17 05:30 06/23/17 05:30 PT 14.4 SECONDS (9.4-12.5) H 06/19/17 05:30 INR 1.31 (0.93-1.08) H 06/19/17 05:30 APTT 73.3 Seconds (25.1-36.5) H 06/23/17 05:30
--- NOTE | 2017-06-23 20:10 | PN ---
DATE: 06/23/2017 SUBJECTIVE: The patient was seen and evaluated earlier today. He appears much more comfortable. PHYSICAL EXAMINATION: GENERAL: The patient is lying on the bed, not in acute distress. The patient has been on NG tube feeding. VITAL SIGNS: Temperature is 97.2, blood pressure is 148/74, respirations 20, and pulse is 76. HEENT: Atraumatic. Anicteric. NECK: Supple. HEART: S1 and S2 heard. LUNGS: Bilateral air entry present. ABDOMEN: Soft. There is no tenderness. EXTREMITIES: No edema. No cyanosis. No clubbing. LABORATORY DATA: Hemoglobin is 11.6, hematocrit is 35.5, WBC is 9.9, and platelets are 256. His LFTs are essentially unremarkable. Potassium is 3.5. ASSESSMENT AND PLAN: This is a 87 -year-old patient with Crohn's disease, on Pentasa, admitted with fever and change of mental status sp cardiac cath PCI. The patient is off the antibiotics, more alert, and having nasogastric tube feeding because of the dysphagia. Speech therapy reevaluation and close followup. The patient has been on Plavix and aspirin because of the recent coronary artery stent placement. Thank you very much for allowing us to participate in the care of this patient. Saurav Chacon MD [facility]
[2017-06-24] MEDS: Sodium Chloride 0.9% 1,000 ML IV SCH (04:00)
[2017-06-24] MEDS: Thiamine 100 mg/ml Inj IV SCH ×3 (05:11→21:16)
[2017-06-24 06:58] LABS: BASO # 0.03 K/mm3 (0.0-2.0); BASO % 0.3 % (0.0-3.0); EOS # 0.5 (0.0-0.7); EOS % 5.2 % (1.5-5.0); GRAN # 6.08 (1.4-6.5); GRAN % 66.9 % (50.0-68.0); LYMPH # 1.7 (1.2-3.4); LYMPH % 18.9 % (22.0-35.0); MEAN CELL VOLUME 89.4 fl (80.0-105.0); MEAN CORPUSCULAR HEMOGLOBIN 28.4 pg (25.0-35.0); MEAN CORPUSCULAR HGB CONC 31.8 g/dl (31.0-37.0); MONO # 0.8 (0.1-0.6); MONO % 8.7 % (1.0-6.0); RBC 3.87 10^6/uL (3.5-6.1); RED CELL DISTRIBUTION WIDTH 16.5 % (11.5-14.5); WHITE BLOOD COUNT 9.1 10^3/ul (4.5-11.0)
[2017-06-24 07:08] LABS: ALB/GLOB RATIO 0.8 (1.1-1.8); ALBUMIN 3.2 g/dL (3.0-4.8); ALT/SGPT 37 U/L (7-56); AST/SGOT 30 U/L (17-59); BLOOD UREA NITROGEN 10 mg/dL (7-21); CALCIUM 9.4 mg/dL (8.4-10.5); GFR AFRICAN-AMERICAN > 60; GFR NON-AFRICAN AMERICAN > 60; MAGNESIUM 1.8 mg/dL (1.7-2.2)
[2017-06-24] MEDS: Heparin25000 units/250ml 1/2NS 25,000 UNITS/250 ML BAG IV PRN (09:28)
[2017-06-24] MEDS: Potassium Chloride 40 mEq/30 ml LIQ UD PO SCH ×2 (09:54→17:36)
[2017-06-24] MEDS: Mesalamine ER Cap 500 MG PO SCH ×2 (09:57→17:36)
--- NOTE | 2017-06-24 12:15 | PN ---
DATE: 06/24/2017 SUBJECTIVE: The patient is seen lying in bed and on telemetry. He is seen in the presence of his daughter. He is easily arousable and answers questions appropriately. According to his daughter, he was much more lucid yesterday. Lr catheter remains in place due to urinary retention. MEDICATIONS: His current medications include aspirin, carvedilol 3.125 mg b.i.d., Flomax, IV heparin, Pentasa, Plavix 75 mg daily, potassium supplement, Proscar 5 mg daily, and Protonix. PHYSICAL EXAMINATION: GENERAL: He is an elderly man who appears comfortable at the present time. VITAL SIGNS: His blood pressure is 146/76 with pulse of 70 and sinus, respirations are 14. He is afebrile. HEENT: No JVD. CHEST: Clear to auscultation and percussion. HEART: [place] valve sounds heard. ABDOMEN: Soft and nontender with normoactive bowel sounds. EXTREMITIES: No edema. DIAGNOSTIC DATA: Potassium is 4.1 and BUN and creatinine are 10 and 0.7. Hemoglobin and hematocrit of 11.0 and 34.6 with a white count of 9.1, and platelet count is 267,000. PTT is 85. IMPRESSION: 1. 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 Fortunately, has no evidence of sensory motor deficits. 2. Recent fever resolved. 3. Coronary artery disease status post prior bypass surgery aortic valve replacement and recent percutaneous coronary intervention of the vein graft to his left anterior descending of diagonal. 4. Remote myocardial fraction. 5. Urinary retention with Lr catheter in place. 6. Rest of problems as noted. RECOMMENDATIONS: As current management should continue with no further interventions are planned, then resumption of Coumadin therapy with a target INR of 2.5 to 3.0 would be appropriate. Aspirin and Plavix therapy will be continued for the short-term given his recent stent,and increase physical activity is advised. A Urology evaluation for urinary retention should be considered. We will continue to follow and make further recommendations as appropriate. Imtiaz Peterson MD
--- NOTE | 2017-06-24 18:36 | PN ---
DATE: 06/24/2017 SUBJECTIVE: This patient was seen and evaluated earlier today. The patient's NG tube is removed. The patient is more alert, sitting up in the chair, family is around and the patient is able to tolerate the pudding. PHYSICAL EXAMINATION: VITAL SIGNS: Temperature 97.2, pulse 84, blood pressure 124/78. HEENT: Atraumatic, anicteric. NECK: Supple. HEART: S1 and S2 heard. LUNGS: Bilateral air entry present. ABDOMEN: Soft. No tenderness. EXTREMITIES: No cyanosis. No clubbing. LABORATORY DATA: Hemoglobin 11, hematocrit 34.6, WBC is 9.1, and platelets 267. Chemistries essentially unremarkable except blood glucose 184. IMPRESSION: This 87-year-old patient with Crohn's disease on Pentasa admitted with the change of mental status and fever following cardiac catheterization. The patient is now clinically improved. The patient is presently off the antibiotics, more alert. Nasogastric tube is removed. The patient is on a pureed diet tolerating. RECOMMENDATIONS: Continue the pureed diet and continue the Pentasa. The patient has a history of small bowel stricture with Crohn's disease, would continue the pureed diet at the present time. The patient need to be on a long-term basis only a soft diet chew well or pureed diet in view of this stricture. Family is well aware of this. Thank you very much for allowing me to participate in the care of this patient. Saurav Chacon MD [facility]
--- NOTE | 2017-06-24 18:48 | PN ---
DATE: 06/24/2017 SUBJECTIVE: The patient is in bed, in no acute distress, and nontoxic. OBJECTIVE: VITAL SIGNS: Temperature is 97, blood pressure is 120/70, and respiratory rate of 16. HEENT: Unremarkable. NECK: Supple. LUNGS: Have decreased breath sounds. HEART: Normal S1 and S2. ABDOMEN: Soft and nontender. LABORATORY DATA: Reveals a white count of 9.1, hemoglobin of 11, and platelets of 267. BUN of 10 and creatinine 0.7. Procalcitonin is less than 0.05. ASSESSMENT AND PLAN: He is an -[id number] male was seen early this morning in room 272, bed 2. The patient's daughter is at the bedside. The patient is awake and alert and doing well. The patient with a history of significant coronary artery disease, myocardial infarction, aortic aneurysm, benign prostatic hypertrophy, transient ischemic attack, history of aortic valve replacement in 11/2016, coronary artery bypass graft, and history of hemorrhoidectomy. On this admission, the patient was admitted for elective cardiac catheterization on 06/16/2017. Three hours after the cardiac catheterization, the patient became acutely ill with a change of mental status and fever of 102.7. All the workup included negative cultures, negative procalcitonin, negative CAT scan of the chest, and negative CAT scan of the abdomen felt to be probable medication-induced change in mental status and fever and currently off of antibiotics, afebrile, and currently his NG tube in out. He does have a Lr catheter, we strongly encouraged to discontinue the Lr catheter as early as possible to minimize development of new infections. The patient has a normal white count. No fevers and his mental status is improving and we will follow with you. I encouraged to discontinue the Lr catheter. Rohan Gautam MD
--- NOTE | 2017-06-24 23:24 | PN ---
DATE: 06/24/2017 SUBJECTIVE: This 87-year-old male was examined at his bedside. This was in the presence of his . His son-in-law and a 1:1 sitter. The case was reviewed in detail with his nurse, Jane Neville, registered nurse. The patient remains in a normal sinus rhythm on the electronic device monitor. Earlier today he pulled out his NG tube and was noted to be agitated. A 1:1 sitter was called to observe the patient and prevent any self-inflicted disturbance. The patient remains more alert, but is still confused. However, today he is able to answer simple questions appropriately. The patient denies any fever, chills, chest pain, shortness of breath. NG tube has not been replaced. He is now tolerating a pureed diet with nectar-thick liquids and remains on aspiration precautions. PHYSICAL EXAMINATION VITAL SIGNS: A 97.2 temperature, respirations 20, pulse 70, blood pressure 148/77 and pulse ox 98% on room air. Urinary output 925 mL in the past 24 hours. HEENT Head; normocephalic and atraumatic. Eyes; no icterus. Ears; clear. Throat; noninjected. NECK: Supple. HEART: Regular S1 and S2. LUNGS: Clear. ABDOMEN: Soft. EXTREMITIES: No clubbing, no cyanosis, no edema. SKIN: Without rash. NEUROLOGICAL: Moves all four extremities. PSYCHOLOGICAL: Confused and easily agitated but speaking more fluidly. VASCULAR: Legs warm to touch. LABORATORY DATA: White count 9100, hemoglobin 11, hematocrit 34.6 and platelets 267,000. PTT 85.4 on IV heparin drip. Sodium 135, K 4.1, chloride 100, bicarb 29, BUN 10, creatinine 0.7, random blood sugar was 118. All liver function testing was normal including bilirubin 0.7, AST 30, ALT 37 and alk phos 61. Phosphorous normal 3.1. Magnesium level normal 1.8. RPR nonreactive. Previous chest x-ray shows no infiltrate, no CHF. Previous head CT showed no acute infarct or hemorrhage. IMPRESSION: This is an 87-year-old male with multiple medical problems including acute renal failure in the setting of obstructive uropathy secondary to prostate hypertrophy treated with a Lr catheter and comorbidities of altered mental status and metabolic encephalopathy and delirium status post coronary artery catheterization during which time the patient had two additional stents placed and has a history of two previous coronary artery stents for atherosclerotic heart disease in a gentleman who is status post coronary artery bypass graft, aortic valve replacement and has a history of congestive heart failure, chronic hypertension, Crohn's disease and degenerative arthritis. PLAN: At present, as discussed with the patient, nursing and family at bedside is to encourage this patient to be out of bed to chair and continue pureed dysphagia modified diet while monitoring him for aspiration precautions. He will continue with his 1:1 sitter to ensure that he will not pull out his IV which is infusing heparin for his aortic valve and also to make sure that he does not become agitated and harm himself. As I discussed with the nursing staff and family, we will remove his Lr catheter and give him a voiding trial. If he is unable to void after 6 hours the Lr catheter will be replaced. Hopefully with the reintroduction of his Flomax and Proscar to his medical profile he will be able to void without difficulty. He continues on Ecotrin 81 mg p.o. daily, Coreg 3.1 25 mg p.o. b.i.d., IV heparin drip as per the aortic valve protocol and cardiology monitoring it. He continues on Plavix, potassium chloride, IV Protonix, IV saline at 50 mL/hour and thiamine. The patient will remain on fall precautions. His I&Os will continue to be monitored and he remains on constant swallowing eval followup and speech language pathology followup and physical and occupational therapy. Overall prognosis though poor, remains stable at present. Greater than thirty five minutes was spent in the care, management, discussion and review of x-rays, labs, medication and discussion with family at bedside today. All questions were answered Melany Hernandez MD [facility]
[2017-06-25] MEDS: Heparin25000 units/250ml 1/2NS 25,000 UNITS/250 ML BAG IV PRN ×2 (00:10→15:22)
[2017-06-25] MEDS: Sodium Chloride 0.9% 1,000 ML IV SCH (01:06)
[2017-06-25] MEDS: Thiamine 100 mg/ml Inj IV SCH (05:43)
[2017-06-25 06:59] LABS: ALBUMIN 3.3 g/dL (3.0-4.8); ALT/SGPT 34 U/L (7-56); AST/SGOT 35 U/L (17-59); BLOOD UREA NITROGEN 10 mg/dL (7-21); CALCIUM 9.6 mg/dL (8.4-10.5); GFR AFRICAN-AMERICAN > 60; GFR NON-AFRICAN AMERICAN > 60; MAGNESIUM 1.8 mg/dL (1.7-2.2)
[2017-06-25 07:01] LABS: BASO # 0.03 K/mm3 (0.0-2.0); BASO % 0.4 % (0.0-3.0); EOS # 0.4 (0.0-0.7); EOS % 5.2 % (1.5-5.0); GRAN # 5.3 (1.4-6.5); GRAN % 62.4 % (50.0-68.0); HEMOGLOBIN 11.1 g/dL (14.0-18.0); LYMPH % 23.3 % (22.0-35.0); MEAN CELL VOLUME 89.9 fl (80.0-105.0); MEAN CORPUSCULAR HEMOGLOBIN 28.7 pg (25.0-35.0); MEAN CORPUSCULAR HGB CONC 31.9 g/dl (31.0-37.0); MEAN PLATELET VOLUME 9.8 fl (7.0-11.0); MONO # 0.7 (0.1-0.6); MONO % 8.7 % (1.0-6.0); RBC 3.87 10^6/uL (3.5-6.1); RED CELL DISTRIBUTION WIDTH 16.7 % (11.5-14.5); WHITE BLOOD COUNT 8.5 10^3/ul (4.5-11.0)
[2017-06-25] MEDS: Potassium Chloride 40 mEq/30 ml LIQ UD PO SCH (10:22)
[2017-06-25] MEDS: Mesalamine ER Cap 500 MG PO SCH ×3 (10:24→17:32)
--- NOTE | 2017-06-25 12:27 | PN ---
DATE: 06/25/2017 SUBJECTIVE: The patient is seen lying in bed on telemetry. He is currently comfortable. He appears more appropriate. A Lr catheter required reinsertion because of apparent urinary retention. He remains on IV heparin. CURRENT MEDICATIONS: Include aspirin, carvedilol 3.125 mg b.i.d., Flomax, IV heparin, Pentasa, Plavix 75 mg daily, potassium 40 mEq b.i.d., Proscar 5 mg daily, Protonix and thiamine. PHYSICAL EXAMINATION GENERAL: He is a very elderly man, who appears comfortable at rest. VITAL SIGNS: His blood pressure is 138/76, with a pulse of 70, in sinus; respirations are 16. He is afebrile. HEENT: No JVD. CHEST: Clear to auscultation and percussion. HEART: [place] prosthetic valve sounds are heard. ABDOMEN: Soft and nontender with normoactive bowel sounds. EXTREMITIES: No edema. DIAGNOSTIC DATA: Potassium 4.1, BUN and creatinine of 10 and 0.7. Hemoglobin and hematocrit 11.1 and 34.8 with a white count of 8.5, platelet count of 272,000. PTT is 64. IMPRESSION: 1. Coronary artery disease status post prior bypass surgery and recent percutaneous coronary intervention of vein graft to his left anterior descending artery and diagonal, complicated by altered mental status, which is slowly improving, most likely this was secondary to an embolic event causing cognitive impairment, either related to thrombus formation on his mechanical valve in the brief absence of anticoagulation or other cardiovascular source. 2. Urinary retention, requiring repeat Lr insertion. 3. Severe deconditioning. 4. Rest of problems as noted. RECOMMENDATIONS: 1. Coumadin therapy will be initiated with a target INR planned of 2.5 to 3.0 given his prosthetic valve in the setting of the need for dual antiplatelet therapy following recent drug-eluting stent placement. 2. Urology evaluation is advised given his recurrent urinary retention. 3. Aggressive physical therapy measures need to be instituted. 4. Increase activity as tolerated is advised. 5. As he is tolerating a pureed diet, a regular diet will be initiated. The rest of the medications will continue unchanged. All the above were discussed with the nursing staff and his daughter in the room. He remains on one-to-one sitter observation because of risk of falls as he attempts to get out of the bed on his own apparently when not observed and aggressive physical therapy to improve his ambulation would be helpful in this regard. We will continue to follow and make further recommendations as appropriate. Imtiaz Peterson MD [facility]
--- NOTE | 2017-06-25 15:16 | PN ---
DATE: 06/25/2017 SUBJECTIVE: The patient is in bed in no acute distress, nontoxic. PHYSICAL EXAMINATION: VITAL SIGNS: Temperature is 98, blood pressure is 106/60, and respiratory rate of 18. HEENT: Unremarkable. NECK: Supple. LUNGS: Decreased breath sounds. HEART: Normal S1 and S2. ABDOMEN: Soft. LABORATORY EXAMINATION: Reveals a white count of 8.5, hemoglobin 11, and platelets of 272. BUN of 10 and creatinine of 0.7. Urinalysis is noted. RPR is negative. Microbiology reveals the cultures are negative. Review of orders reveals the patient has no antibiotics. ASSESSMENT AND PLAN: This is an 87-year-old male was seen early this morning in 272, bed 2 and with the patient's daughter at the bedside this morning. The patient is doing well. The patient had Lr catheter removed and had difficulty with urination and new Lr catheter was placed. The patient with a history of significant coronary artery disease, myocardial infarction, aortic aneurysm, benign prostatic hypertrophy, transient ischemic attack, history of aortic valve replacement 11/2016, coronary bypass graft, history of hemorrhoidectomy, who is admitted on this admission for; actually the patient came in for an elective cardiac catheterization on 06/16/2017 three hours after procedure the cardiac catheterization and the patient became acutely ill with a change in mental status and fever of 102.7. Workup for cultures, numerous procalcitonin, CAT scan of the chest, CAT of the abdomen; all were negative. The patient at this point is off of antibiotics, afebrile, he is transferred out of the unit doing much better. He does have a Lr catheter. He is at risk for developing nosocomial infections. We will follow closely with you. The patient is at high risk of developing . Rohan Gautam MD
--- NOTE | 2017-06-25 20:31 | PN ---
DATE: 06/25/2017 SUBJECTIVE: This patient was seen and evaluated earlier today. The patient's family was at bedside, tolerating the pureed diet, had some loose bowel movements twice, and stool was sent. PHYSICAL EXAMINATION: VITAL SIGNS: Temperature is 97.7, pulse is 79, blood pressure is 108/65, and respirations are 17. HEENT: Atraumatic. Anicteric. NECK: Supple. HEART: S1 and S2 heard. LUNGS: Bilateral air entry present. ABDOMEN: Soft. No tenderness. EXTREMITIES: No cyanosis. No clubbing. LABORATORY DATA: Hemoglobin 11.1, hematocrit 34.8, WBC 8.5, and platelets 272. Chemistry is essentially unremarkable. IMPRESSION AND PLAN: This 87 -year-old patient admitted for change of mental status and fever, status post cardiac catheterization, presently on aspirin and Plavix.Also on heparin,h/o sp CVA History of Crohn's disease on Pentasa. The patient is off the antibiotics, has loose bowel movements, and requested for stool for Clostridium difficile. The patient is now tolerating pureed diet, history of small bowel stricture, and we will continue the pureed diet. I had a detailed discussion with the patient's family who was at bedside. Thank you very much for allowing us to participate in the care of the patient. Saurav Chacon MD [facility]
--- NOTE | 2017-06-25 21:47 | PN ---
DATE: 06/25/2017 SUBJECTIVE: This 86-year-old male was examined at his bedside in the presence of his and nurse. He remains in a normal sinus rhythm on the intelligence research specialist. An attempt was made to remove his Lr catheter. However, the patient was unable to void; the Lr catheter was replaced. At present, he remains afebrile and in a normal sinus rhythm on the intelligence research specialist. He remains on IV heparin in the setting of aortic valve replacement and need for chronic anticoagulation. PHYSICAL EXAMINATION: VITAL SIGNS: Temperature is 98.3, respirations 18, pulse 69, blood pressure 138/75. Pulse ox 96% on room air. HEAD: Normocephalic, atraumatic. EYES: No icterus. EARS: Clear. THROAT: Noninjected. NECK: Supple. HEART: Regular S1, S2. LUNGS: Clear. ABDOMEN: Soft. EXTREMITIES: No edema. SKIN: Without rash. NEUROLOGICAL: Intact. PSYCHOLOGICAL: More alert. VASCULAR: Legs warm to touch. LABORATORY DATA: White count 8500, hemoglobin 11.1, hematocrit 34.8, platelets 272,000. PTT 63.8 on IV heparin. Sodium 135, K 4.1, chloride 101, bicarb 28, BUN 10, creatinine 0.7, random blood sugar 169. All liver function testing was normal including bilirubin 0.8, AST 35, ALT 34, alk phos 58, phosphorous 3.7. Magnesium 1.8, all normal. RPR serology, negative. Urine culture, no growth. Blood cultures, no growth at 5 days. C. diff antigen/toxin negative. MRSA nondetected. 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 PLAN: The plan at present is discussed with nurse, Jane Neville, registered nurse is to remove Lr catheter. The patient is instructed to be out of bed to chair and ambulate with assistance while continuing medications including Ecotrin 81 mg p.o. daily, Coreg 3.125 mg p.o. b.i.d., warfarin 4 mg p.o. daily, and heparin drip as per Dr. Peterson, cardiology. The patient will also continue on Flomax 0.4 mg p.o. daily, Proscar 5 mg p.o. daily, Plavix 75 mg p.o. daily, and Protonix 40 mg IV daily. The patient has normal potassium levels and is not on diuretics; therefore, his potassium supplement will be stopped. The nursing staff will remove Lr catheter. If the patient continues to retain urine in his bladder in excess of 500 mL, Dr. Gordon from Urology will be called. All the above was discussed in detail with the patient, family, nursing, and co-consultants. All questions were answered. Melany Hernandez MD MTDD
[2017-06-26 07:40] LABS: BASO # 0.03 K/mm3 (0.0-2.0); BASO % 0.3 % (0.0-3.0); EOS # 0.4 (0.0-0.7); EOS % 4.8 % (1.5-5.0); GRAN # 5.5 (1.4-6.5); GRAN % 63.2 % (50.0-68.0); HEMOGLOBIN 11.7 g/dL (14.0-18.0); LYMPH # 1.9 (1.2-3.4); LYMPH % 22.1 % (22.0-35.0); MEAN CELL VOLUME 90.5 fl (80.0-105.0); MEAN CORPUSCULAR HEMOGLOBIN 28.6 pg (25.0-35.0); MEAN CORPUSCULAR HGB CONC 31.6 g/dl (31.0-37.0); MONO # 0.8 (0.1-0.6); MONO % 9.6 % (1.0-6.0); RBC 4.09 10^6/uL (3.5-6.1); RED CELL DISTRIBUTION WIDTH 16.6 % (11.5-14.5); WHITE BLOOD COUNT 8.7 10^3/ul (4.5-11.0)
[2017-06-26 07:55] LABS: INR 1.21 (0.93-1.08); PARTIAL THROMBOPLASTIN TIME 58.4 Seconds (25.1-36.5); PROTHROMBIN TIME 13.4 SECONDS (9.4-12.5)
[2017-06-26 07:56] LABS: ALBUMIN 3.7 g/dL (3.0-4.8); ALT/SGPT 35 U/L (7-56); AST/SGOT 32 U/L (17-59); BLOOD UREA NITROGEN 11 mg/dL (7-21); GFR AFRICAN-AMERICAN > 60; GFR NON-AFRICAN AMERICAN > 60; MAGNESIUM 1.8 mg/dL (1.7-2.2)
[2017-06-26] MEDS: Mesalamine ER Cap 500 MG PO SCH ×2 (09:15→18:10)
--- NOTE | 2017-06-26 09:38 | PN ---
DATE: 06/26/2017 SUBJECTIVE: The patient is seen lying in bed on telemetry. He is comfortable at present. He is seen in the presence of his family. He required reinsertion of a Lr catheter because of urinary retention. 1000 mL of urine was obtained. He denies any chest pain or dyspnea. His appetite has been good. He is tolerating a regular diet. CURRENT MEDICATIONS: Include aspirin, carvedilol 3.125 mg b.i.d., Coumadin 4 mg daily, Flomax, IV heparin, Pentasa 1500 mg b.i.d., Pepcid 20 mg daily, Plavix 75 mg daily, and Proscar. PHYSICAL EXAMINATION: GENERAL: He is a very elderly man who appears comfortable at rest. VITAL SIGNS: His blood pressure is 136/86 with pulse of 80 and sinus, respirations are 16. He is afebrile. HEENT: No JVD. CHEST: Few scattered rhonchi heard. HEART: [place] prosthetic valve sounds noted. ABDOMEN: Soft and nontender with normoactive bowel sounds. EXTREMITIES: No edema. DIAGNOSTIC DATA: Potassium is 4.0, BUN and creatinine are 11 and 0.9. White count 8.7, hemoglobin and hematocrit 11.7 and 37.0 with platelet count of 317,000. INR is 1.2 and PTT is 58. IMPRESSION: 1. Coronary artery disease status post recent percutaneous coronary intervention of his left anterior descending artery vein graft complicated by altered mental status. This continues to improve. 2. Urinary retention, requiring re-insertion of the Lr catheter. 3. Altered mental status improved, suspect this was due to an embolic event during lack of anti-coagulation prior to cath/PCI. 4. Aortic valve disease status post mechanical St. Se valve replacement. 5. Severely deconditioned. 6. Rest of problems as noted. RECOMMENDATIONS: 1. His current medications will be continued. Coumadin therapy will continue with a target INR of 2.5-3.0 as he will continue to need dual antiplatelet therapy for the next several months. 2. Urology evaluation has been requested. 3. Physical therapy reevaluation has been requested as well. 4. Daily INR will be monitored. Eventual transfer to U or another subacute rehab facility will be planned. Imtiaz Peterson MD [facility] # [id number] ANKUR
--- NOTE | 2017-06-26 16:12 | PN ---
DATE: SUBJECTIVE: The patient is in bed, in no acute distress, nontoxic. PHYSICAL EXAMINATION: VITAL SIGNS: Temperature is 98, blood pressure is 118/70, respiratory rate of 16. HEENT: Unremarkable. NECK: Supple. LUNGS: Have decreased breath sounds. HEART: Normal S1, S2. ABDOMEN: Soft, nontender. Laboratory examination reveals a white count of 8.7, hemoglobin of 11, platelets of 317. Coagulation is noted. Chemistries reveal a BUN of 11, creatinine of 0.9. Urinalysis is noted and RPR is negative. Vancomycin random level is 11.3. Dr. Peterson's note from this morning is reviewed. ASSESSMENT/PLAN: An 86-year-old male who was seen earlier this morning. Also, the patient's daughters were present. The patient's mental status is much improved. Overall, he is doing well. The patient has a history of coronary artery disease, myocardial infarction, aortic aneurysm, benign prostatic hypertrophy, transient ischemic attack, history of aortic valve replacement in November 2016, coronary bypass graft and history of hemorrhoidectomy who is admitted. On this admission, the patient was having an elective cardiac catheterization on 06/16/2017. Three hours after the elective procedure, the patient became confused and had a temperature of 102.7. All cultures, CAT scan, procalcitonin, all workup negative for infection. Currently, the patient is off of antibiotics, afebrile, normal white count. The patient is experiencing urinary retention, Lr catheter. Awaiting for urology. Overall mental status is greatly improved as per both of the patient's daughters state this morning. We will follow closely with you. Pending urology evaluation. Currently off of antibiotics. Rohan Gautam MD
[2017-06-26] MEDS: Heparin25000 units/250ml 1/2NS 25,000 UNITS/250 ML BAG IV PRN (17:47)
--- NOTE | 2017-06-26 20:45 | PN ---
DATE: 06/26/2017 SUBJECTIVE: This patient was seen and evaluated earlier today. PHYSICAL EXAMINATION: VITAL SIGNS: Temperature is 98.4, pulse 74 and blood pressure 129/70. HEENT: Atraumatic, anicteric. NECK: Supple. HEART: S1 and S2 heard. LUNGS: Bilateral air entry present. ABDOMEN: Soft. Bowel sounds present. LABORATORY DATA: Hemoglobin 11.7, hematocrit 37, WBC 8.7, and platelets 317. BUN 11 and creatinine 0.9. IMPRESSION: This 87-year-old patient with Crohn's disease on Pentasa admitted with change of mental status and fever, post cardiac catheterization, now afebrile, tolerating the diet, had urinary retention, had a Lr catheter now. Clinically, appears to be improving. The patient has been aspirin and Plavix and also on heparin. The patient had St. Se mechanical valve. Continue the pureed diet. 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 Saurav Chacon MD
--- NOTE | 2017-06-27 00:24 | PN ---
DATE: 06/26/2017 SUBJECTIVE: This 86-year-old male was examined at the bedside in the presence of his family members including two daughters, , son-in-law, and brother. The patient was lying in bed. He is alert, but markedly deconditioned. I am following the patient for acute renal failure in the setting of obstructive uropathy secondary to chronically enlarged prostate and difficulty with voiding on a chronic basis. The patient post cardiac cath had an episode of metabolic encephalopathy and delirium possibly as a side effect of his anesthesia, and also was n.p.o. for several days and without his chronic prostate urological medication. Once the family agreed to an NG tube, his Flomax and Proscar were re-instituted. Lr catheter has been necessary because of hydronephrosis. The placement of his Lr catheter has resulted in the resolution of his azotemia. I discussed with the family upon multiple occasions, we are all concerned about the risk of urinary tract infection in the setting of current need for Lr catheterization, however, it is necessary at present. It should be noted that the patient has failed two voiding attempts, most recently this morning where a bladder scan showed a urine volume of greater than 1 liter which required the replacement of Lr catheter under the co-direction of Dr. Migel Askew from Urology. Family is aware and in agreement with the above. At present, the patient denies any fever, chills, chest pain, or shortness of breath. vehicle monitor technician shows normal sinus rhythm. PHYSICAL EXAMINATION: VITAL SIGNS: Temperature is 98.4, respirations 18, pulse 76 and blood pressure 129/70 with a pulse ox of 97% room air. Urine output at present is 1700 mL today. HEENT: Head is normocephalic, atraumatic. Eyes: No icterus. Ears: Clear. Throat: Non-injected. NECK: Supple. HEART: Regular S1, S2. LUNGS: Clear. ABDOMEN: Soft. EXTREMITIES: No edema. SKIN: Without rash. NEUROLOGIC: Grossly intact. PSYCHOLOGIC: Alert, but confused. VASCULAR: Legs are warm to touch. LABORATORY DATA: White count 8700, hemoglobin 11.7, hematocrit 37.0, platelets 317,000. PT/INR 1.21, PTT 58.4. Sodium 136, potassium 4.0, chloride 98, bicarb 27, BUN 11, creatinine 0.9, random blood sugar 117. Phosphorous 3.6, magnesium 1.8, bilirubin 0.8, AST 32, ALT 35, alk phos 68. Microbiology: Most recent urine and blood cultures, no growth to date. Stool C. diff antigen and toxin obtained 06/25/2017 are both negative. IMPRESSION: This is an 86-year-old male with acute renal failure in the setting of obstructive nephropathy secondary to chronic prostatic hypertrophy requiring the continued present need for a Lr catheter secondary to persistent urinary retention with comorbidities of resolving metabolic encephalopathy and delirium, status post coronary artery catheterization at which time the patient had two additional stents placed in his coronary artery circulation for a total of four stents with a history of coronary artery bypass graft, atherosclerotic heart disease, myocardial infarction, aortic valve replacement, chronic hypertension, peptic ulcer disease with gastroesophageal reflux disease, Crohn's disease, prostate hypertrophy, deconditioning, and anemia of acute illness. PLAN: The plan at present as discussed with the patient, nursing and family at bedside is to continue his one-to-one sitter at present because of the patient's history of delirium and pulling out NG tube in the past, IVs, and danger for pulling out needed Lr catheter. He continues on physical and occupational therapy and speech-language treatment for swallowing evaluation and speech therapy. He is ordered to have fall precautions, continued I's and O's, aspiration precautions, and continued one-to-one sitter. He is on a heart-healthy soft bland diet which has been approved by Speech Therapy. He continues on thiamine, Proscar, Plavix, Pepcid, Pentasa, IV heparin drip, Flomax, Coumadin, Coreg, and Ecotrin. He is having laboratories monitored including daily INRs and PTT while on IV heparin. He will also have serial CBCs and basic metabolic panels as indicated. Urology consultation will determine the next step. Family is desirous of conservative intervention and does not desire any consideration of surgical TURP at this time. They have been advised that the patient remains at an increased risk of urinary tract infection and sepsis with the need for indwelling Lr catheter. However, given his clinical situation they understand the need and are in agreement with the risk as outlined above. Greater than 35 minutes was spent in the care, discussion, review of labs, medications, x-rays, and orders for this patient today with the family and nursing. All questions were answered. Melany Hernandez MD [facility]
[2017-06-27 06:31] LABS: INR 1.25 (0.93-1.08); PARTIAL THROMBOPLASTIN TIME 61.8 Seconds (25.1-36.5); PROTHROMBIN TIME 13.8 SECONDS (9.4-12.5)
--- NOTE | 2017-06-27 09:06 | PCM.URO ---
Urology Progress Note - Objective Lab Studies: Reviewed (gu dx: retention gu plans: see / do not repeat voiding trial yet / will order serum psa / thanks for gu consult / full note dictated) Lab Results Last 24 Hours: Laboratory Results - last 24 hr 06/26/17 06/26/17 06/27/17 11:43 16:15 05:30 PT 13.8 H INR 1.25 H APTT 61.8 H POC Glucose (mg/dL) 124 H 129 H 06/27/17 07:20 PT INR APTT POC Glucose (mg/dL) 123 H Intake & Output: Intake & Output 06/26/17 06/27/17 06/27/17 18:59 06:59 18:59 Intake Total 700 108 Output Total 1701 Balance -1001 108 Weight 138 lb 1.6 oz 143 lb 14.4 oz Intake: IV 250 108 Right Forearm 108 Oral 300 Tube Feeding 150 Output: Urine 1701 Urethral (See) 1700 Urine, Voided 1 Other: # Voids Urine, Voided 0 # Bowel Movements 1 Vital Signs: Vital Signs - 24 hr 06/26/17 06/26/17 06/26/17 09:15 10:00 11:34 Temperature 98.4 F Pulse Rate 78 75 76 Respiratory 18 Rate Blood Pressure 118/71 129/70 O2 Sat by Pulse Oximetry 06/26/17 06/26/17 06/26/17 14:00 18:00 18:12 Temperature 97.2 F L Pulse Rate 76 86 86 Respiratory 19 Rate Blood Pressure 119/62 119/62 O2 Sat by Pulse Oximetry 06/26/17 06/27/17 06/27/17 22:00 00:01 02:00 Temperature 98.3 F Pulse Rate 84 84 93 H Respiratory 18 Rate Blood Pressure 126/62 O2 Sat by Pulse 95 Oximetry 06/27/17 06/27/17 05:46 06:00 Temperature 97.9 F Pulse Rate 87 80 Respiratory 18 Rate Blood Pressure 134/81 O2 Sat by Pulse 95 Oximetry
[2017-06-27] MEDS: Mesalamine ER Cap 500 MG PO SCH ×2 (10:15→18:15)
--- NOTE | 2017-06-27 12:29 | PN ---
DATE: 06/27/2017 SUBJECTIVE: The patient is seen lying in bed on telemetry, is currently comfortable and his Lr catheter remains in place. He was seen by Dr. Askew who advised that the Lr be left in for now. He has been started on Coumadin. His mental status is back to baseline as per his family. CURRENT MEDICATIONS: Include aspirin, carvedilol 3.125 mg b.i.d., Coumadin, Flomax 0.4 mg daily, IV heparin, Pentasa, Pepcid, Plavix and Proscar. PHYSICAL EXAMINATION: GENERAL: He is a very elderly man who appears comfortable at rest. VITAL SIGNS: His blood pressure is 134/80 with pulse of 80 and sinus, respirations are 14. He is afebrile. HEENT: No JVD. CHEST: Clear to auscultation and percussion. HEART: [place] prosthetic valve sounds heard. ABDOMEN: Soft, nontender, good bowel sounds. EXTREMITIES: No edema. DIAGNOSTIC DATA: INR is 1.25 with a PTT of 61.8. IMPRESSION: 1. Coronary artery disease, status post recent percutaneous coronary intervention of his vein graft to the left anterior descending artery. 2. Urinary retention. 3. Altered mental status, clinically improved. 4. Aortic valve disease, status post mechanical valve replacement. 5. Deconditioning. RECOMMENDATIONS: His current medications will be continued. Coumadin loading will proceed, his target INR will be 2.5 to 3.0. Physical therapy evaluation has been requested. His activity will be increased as tolerated. Daily INR monitoring will continue. All the above was discussed with his family at the bedside as well as his nurse. We will continue to follow. We will make further recommendations as appropriate. Imtiaz Peterson MD
--- NOTE | 2017-06-27 18:12 | CON ---
DATE: UROLOGY CONSULTATION REASON FOR CONSULTATION: Urinary retention. HISTORY OF PRESENT ILLNESS: Mr. Donnie Vela is an 86-year-old who I know quite well and following as an outpatient for a while. The patient is a very pleasant man and come to the office with his family often with his daughter. Currently, he is in the hospital. He underwent a cardiac catheterization. Post cardiac catheterization, the patient experienced some difficulties listed on the chart and also the history is from the patient's daughter. With mentation and slurred speech, multiple CT scans have been done that did not reveal any evidence of CVA and now in fact the patient is becoming mentally more alert and doing much better. The consultation of the urinary retention, yesterday I received the phone call regarding urinary retention with the bladder scan showing 900 mL. He has failed multiple previous voiding trials and Urology is now consulted for further recommendations. He currently is resting comfortably with an indwelling Lr catheter with clear yellow urine. PAST MEDICAL AND SURGICAL HISTORY: All listed on the chart. REVIEW OF SYSTEMS: As listed above, noncontributory, otherwise. PHYSICAL EXAMINATION: GENERAL: A well-nourished male, he is currently resting comfortably. The remaining physical exam is otherwise unremarkable. Lr catheter is in good location and draining clear yellow urine. LABORATORY DATA: See chart. DIAGNOSIS: Urinary retention with recurrent episodes. Long list of differential diagnoses for his urinary retention. Prior to this, we have seen him in the office on an outpatient basis and he made the review of my records in terms of residual urines that have been noted, but the patient has been otherwise stable from a urologic standpoint. I explained these finding to the daughter that sometimes after any form of procedure sometime people develop urinary retention with or without anesthesia. I explained about the possibility for prostatic infract. In this regards, see the plans listed below, we will get serum PSA and just to monitor the patient( if not per se prostate cancer screening), but to monitor the patient. From urology standpoint from an infection and risk, at this point, it will be better for the patient that he have to keep the Lr catheter in place. We will wait for him to be ambulating better, he is pretty much not ambulating very well yet. Presumably that will be from physical therapy when the patient is mentally stronger and back to his baseline, we will repeat voiding trials. In the interim, we will consider the use of an alpha block unless contraindicated for some reason. So from the urology standpoint, the diagnosis done is urinary retention and voiding dysfunction. PLAN: As follows; 1. Maintain the current Lr catheter. 2. I will review the CT scan. 3. I am going to order PSA. 4. We will have the patient wearing a leg bag during physical therapy. 5. Voiding trials to follow in the future and then we will discuss the timing of such. Thank you for the urology consult. Migel Askew MD
[2017-06-27] MEDS: Heparin25000 units/250ml 1/2NS 25,000 UNITS/250 ML BAG IV PRN (22:12)
[2017-06-28 07:16] LABS: INR 1.5 (0.93-1.08); PROTHROMBIN TIME 16.6 SECONDS (9.4-12.5)
--- NOTE | 2017-06-28 08:35 | PN ---
DATE: 06/27/2017 SUBJECTIVE: This 87-year-old male was examined at the bedside in the presence of his , son-in-law and one-to-one sitter. His case was reviewed in detail with himself, family and nursing. He denies active chest pain or shortness of breath. He remains on IV heparin while being converted to oral Coumadin and is continuing with a Lr catheter in the setting of urinary retention. The patient was evaluated earlier today by urologist Dr. Migel Askew. He recommends the continued placement of a Lr catheter given 2 failed attempts at Lr catheter removal with persistent urinary retention. The patient does have a longstanding history of chronic prostatic hypertrophy under the previous care of Dr. Davide Nina, Urology, and remains on Proscar and Flomax accordingly. He historically has elevated PSA levels. Family and patient have declined prostate biopsy in the past with Dr. Nina and the patient is unable to void at the present time without a Lr catheter. PHYSICAL EXAMINATION: GENERAL: He is in a normal sinus rhythm on the ekg monitor tech. VITAL SIGNS: Temperature 97.3, respirations 19, pulse 90 and blood pressure 112/68. Pulse ox 95% room air. Urinary output 1700 mL via Lr catheter on 06/26/2017. HEENT: Head: Normocephalic, atraumatic. Eyes: No icterus. Ears: Clear. Throat: Noninjected. NECK: Supple. HEART: Regular S1, S2. LUNGS: Clear. ABDOMEN: Soft. EXTREMITIES: No edema. SKIN: Without rash. NEUROLOGICAL: Intact. PSYCHOLOGICAL: Confused. VASCULAR: Legs warm to touch. Skin without ulcers. He is sitting in a chair. Lr is draining clear yellow urine. LABORATORY DATA: White count 8700, hemoglobin 11.7, hematocrit 37.0, platelets 317,000. PT/INR 1.25, PTT 61.8. Random blood sugar 123. Sodium 136, K 4.0, chloride 98, bicarb 27, BUN 11, creatinine 0.9. Magnesium normal at 1.8. Phosphorous normal at 3.6. Stool C. Diff toxin antigen and toxin negative. Urine no growth. IMPRESSION: An 87-year-old male status post acute renal failure, now resolved secondary to obstructive uropathy, right hydronephrosis in the setting of chronic prostatic hypertrophy, now able to orally swallow Proscar and Flomax, but will need for continued Lr catheter until urine output can be established without Lr. The patient will continue on aspirin, Coreg, warfarin, Flomax, IV heparin protocol, Pentasa, Pepcid, Plavix, Proscar and thiamine. He is ordered to have serial labs. He will have a timing of his Lr catheter determined by Urology and all the above was discussed in detail with the patient and family at bedside. The patient remains at an increased risk for urinary tract infection given indwelling Lr, which is necessary at this point in time. Melany Hernandez MD MTDD
--- NOTE | 2017-06-28 08:43 | PN ---
DATE: 06/27/2017 SUBJECTIVE: This patient was seen and evaluated earlier. The patient is tolerating the diet. PHYSICAL EXAMINATION: VITAL SIGNS: Temperature 98, blood pressure 103/78, respirations 18. HEENT: Atraumatic. Anicteric. NECK: Supple. HEART: S1, S2 heard. LUNGS: Bilateral air entry present. ABDOMEN: Soft. No tenderness. Good bowel movement. EXTREMITIES: No edema. NEUROLOGIC: Alert and oriented. Moves all the extremities. LABORATORY DATA: Hemoglobin 11.7, hematocrit 37, WBC is 8.7, platelets 317. LFTs normal. INR 1.25 and PTT 61.8. IMPRESSION: This is an 87-year-old patient with Crohn's disease, small bowel stricture, on Pentasa; status post fever and change in mental status, status post cardiac catheterization, clinically improved; has urinary retention, has a Lr catheter; history of aortic valve replacement; mechanical valve St. Se. RECOMMENDATIONS: Continue anticoagulation. Continue the Pentasa. Continue the pureed diet. Thank you very much for allowing us to participate in the care of the patient. Saurav Chacon MD
--- NOTE | 2017-06-28 11:18 | CP.PCM.PN ---
<Desirae Mendoza - Last Filed: 06/28/17 11:18> Subjective - Date & Time of Evaluation Date of Evaluation: 06/28/17 Time of Evaluation: 09:55 - Subjective Subjective: Seen and examined at the bedside earlier today, the chart was reviewed. Family at bedside. Patient in no acute distress, denies nausea, vomiting, or abdominal pain. Tolerating oral intake, denies dysphagia. Daughter at bedside , patient reportedly had diarrhea, received Imodium. Stool C. difficile done on 06/25/17 negative. As per daughter tinge of blood noted in urine bag, patient has Lr catheter. Remains on heparin drip as per protocol, no reports of any overt GI bleed. Objective - Vital Signs/Intake and Output Vital Signs (last 24 hours): Temp Pulse Resp BP Pulse Ox 97.7 F 100 H 20 108/69 97 06/28/17 06:00 06/28/17 11:05 06/28/17 06:00 06/28/17 11:05 06/28/17 06:00 Intake and Output: 06/28/17 06/28/17 06:59 18:59 Intake Total 370 108 Output Total 300 Balance 70 108 - Medications Medications: Current Medications Aspirin (Aspirin Chewable) 81 mg PO DAILY [facility] Last Admin: 06/28/17 11:06 Dose: 81 mg Carvedilol (Coreg) 3.125 mg PO BID [facility] Last Admin: 06/28/17 11:05 Dose: 3.125 mg Clopidogrel Bisulfate (Plavix) 75 mg PO DAILY [facility] Last Admin: 06/28/17 11:05 Dose: 75 mg Famotidine (Pepcid) 20 mg PO HS [facility] Last Admin: 06/27/17 22:11 Dose: 20 mg Finasteride (Proscar) 5 mg PO DAILY [facility] Last Admin: 06/28/17 11:05 Dose: 5 mg Heparin Sodium/Sodium Chloride (Heparin 93198 Units/250ml 1/2 Normal Saline) 25 ,000 units in 250 mls @ 9.011 mls/hr IV .Q24H PRN; Protocol; 14 UNITS/KG/HR PRN Reason: ADJUST RATE PER PROTOCOL Last Admin: 06/27/17 22:12 Dose: 14 units/kg/hr, 9.011 mls/hr Loperamide HCl (Imodium) 2 mg PO Q6H PRN PRN Reason: diarrhoea Mesalamine (Pentasa) 1,500 mg PO BID [facility] Last Admin: 06/27/17 18:15 Dose: 1,500 mg Tamsulosin HCl (Flomax) 0.4 mg PO DAILY [facility] Last Admin: 06/28/17 11:05 Dose: 0.4 mg Thiamine HCl (Vitamin B1 Tab) 100 mg PO DAILY [facility] Last Admin: 06/28/17 11:04 Dose: 100 mg Warfarin Sodium (Coumadin) 10 mg PO 1800 ONE PRN Reason: Protocol Stop: 06/28/17 18:01 - Labs Labs: 06/26/17 06:30 06/26/17 06:30 PT 16.6 SECONDS (9.4-12.5) H 06/28/17 06:00 INR 1.50 (0.93-1.08) H 06/28/17 06:00 APTT 66.8 Seconds (25.1-36.5) H 06/28/17 06:00 - Constitutional Appears: No Acute Distress - Head Exam Head Exam: NORMOCEPHALIC - Eye Exam Eye Exam: Normal appearance. absent: Scleral icterus - ENT Exam ENT Exam: Mucous Membranes Moist - Respiratory Exam Respiratory Exam: NORMAL BREATHING PATTERN. absent: Respiratory Distress - Cardiovascular Exam Cardiovascular Exam: +S1, +S2 - GI/Abdominal Exam GI & Abdominal Exam: Soft, Normal Bowel Sounds. absent: Guarding, Tenderness, Rebound - Extremities Exam Extremities Exam: absent: Calf Tenderness, Pedal Edema - Neurological Exam Neurological Exam: Alert, Awake, Oriented x3 - Skin Skin Exam: Dry, Warm Assessment and Plan - Assessment and Plan (Free Text) Assessment: Assessment: Coronary artery disease Status post change in mental status, post cardiac catheter History of Crohn's disease Status post acute renal failure secondary to obstructive uropathy History of chronic prostatic hypertrophy Plan: On aspirin/Plavix/heparin drip Continue pured diet Monitor H&H On Coumadin On Flomax/Proscar Continue Pentasa As per cardiology/urology Discussed with daughter at bedside. Seen and discussed with Dr. Chacon. <Saurav Chacon V - Last Filed: 06/28/17 18:59> Objective - Vital Signs/Intake and Output Vital Signs (last 24 hours): Temp Pulse Resp BP Pulse Ox 97.4 F L 97 H 20 113/79 97 06/28/17 12:00 06/28/17 17:53 06/28/17 12:00 06/28/17 17:53 06/28/17 06:00 Intake and Output: 06/28/17 06/28/17 06:59 18:59 Intake Total 370 108 Output Total 300 Balance 70 108 - Medications Medications: Current Medications Aspirin (Aspirin Chewable) 81 mg PO DAILY [facility] Last Admin: 06/28/17 11:06 Dose: 81 mg Carvedilol (Coreg) 3.125 mg PO BID [facility] Last Admin: 06/28/17 17:53 Dose: 3.125 mg Clopidogrel Bisulfate (Plavix) 75 mg PO DAILY [facility] Last Admin: 06/28/17 11:05 Dose: 75 mg Famotidine (Pepcid) 20 mg PO HS [facility] Last Admin: 06/27/17 22:11 Dose: 20 mg Finasteride (Proscar) 5 mg PO DAILY [facility] Last Admin: 06/28/17 11:05 Dose: 5 mg Heparin Sodium/Sodium Chloride (Heparin 72953 Units/250ml 1/2 Normal Saline) 25 ,000 units in 250 mls @ 9.011 mls/hr IV .Q24H PRN; Protocol; 14 UNITS/KG/HR PRN Reason: ADJUST RATE PER PROTOCOL Last Admin: 06/27/17 22:12 Dose: 14 units/kg/hr, 9.011 mls/hr Insulin Human Regular (Humulin R Low) 0 units SC ACHS [facility] PRN Reason: Protocol Last Admin: 06/28/17 17:51 Dose: Not Given Loperamide HCl (Imodium) 2 mg PO Q6H PRN PRN Reason: diarrhoea Mesalamine (Pentasa) 1,500 mg PO BID [facility] Last Admin: 06/28/17 17:51 Dose: 1,500 mg Tamsulosin HCl (Flomax) 0.4 mg PO DAILY [facility] Last Admin: 06/28/17 11:05 Dose: 0.4 mg Thiamine HCl (Vitamin B1 Tab) 100 mg PO DAILY [facility] Last Admin: 06/28/17 11:04 Dose: 100 mg - Labs Labs: 06/26/17 06:30 06/26/17 06:30 PT 16.6 SECONDS (9.4-12.5) H 06/28/17 06:00 INR 1.50 (0.93-1.08) H 06/28/17 06:00 APTT 66.8 Seconds (25.1-36.5) H 06/28/17 06:00 Attending/Attestation - Attestation I have personally seen and examined this patient.: Yes I have fully participated in the care of the patient.: Yes I have reviewed all pertinent clinical information, including history, physical exam and plan: Yes Notes (Text): This is an addendum to GI progress report dictated by Desirae Mendoza APN.The patient was seen and examined earlier. Medical records, lab studies, imagings were reviewed. Last 24 hours events reviewed. Agreed with the above treatment plan as outlined in Desirae Mendoza APN's notes the with the addition of the following family was at bedside at the time of examination Had an episode of loose bowel movements Tolerating pured diet Still has a Lr catheter Abdomen soft no tenderness Continued anticoagulation follow-up of the hemoglobin and hematocrit Continue Pentasa 06/28/17 18:58
[2017-06-28] MEDS: Mesalamine ER Cap 500 MG PO SCH ×2 (13:44→17:51)
--- NOTE | 2017-06-28 17:30 | PN ---
DATE: 06/28/2017 SUBJECTIVE: This 87-year-old male was examined at his bedside in the presence of his and his son-in-law. This case was discussed with his daughter, Sruthi, as well and the case was reviewed in detail with is nurse as well. 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 The nurse informed me that his blood sugars have been running high. I will request that low-dose regular insulin protocol be instituted. The patient is draining clear yellow urine via Lr catheter. Of note, a PSA was done that showed his level currently at 9, and the family's recollection is that his previous levels have run about 11. This is consistent with his history of prostate hypertrophy. At present, he denies fever, chills, chest pain or shortness of breath and remains on IV heparin protocol while bridging with Coumadin. There have been no reports of hematemesis, melena or hemoptysis and the patient is tolerating oral medication well. PHYSICAL EXAMINATION: VITAL SIGNS: Temperature 97.7, respirations 20, pulse 80, blood pressure 123/70, pulse ox 97% on room air. Urine output has been 308 mL thus far today. HEENT: Head: Normocephalic, atraumatic. Eyes: No icterus. Ears: Clear. Throat: Noninjected. NECK: Supple. HEART: Regular S1, S2. LUNGS: Clear. ABDOMEN: Soft. EXTREMITIES: No edema. SKIN: Without rash. NEUROLOGICAL: Intact. PSYCHOLOGICAL: More alert. VASCULAR: Legs warm to touch. LABORATORY DATA: White count 8700, hemoglobin 11.7, hematocrit 37.0, platelets 317,000. PT/INR 1.5, PTT 66.8. Random blood sugar 234. Sodium 136, potassium 4.0, chloride 98, bicarb 27, BUN 11, creatinine 0.9. Liver function testing normal including bilirubin 0.8, AST 32, ALT 35, alk phos 68, phosphorous 3.6, calcium 10.0. IMPRESSION: 87-year-old male status post acute renal failure in the setting of urinary retention, obstructive uropathy with previous right hydronephrosis secondary to prostate hypertrophy with chronically elevated PSA levels in a gentleman with comorbidities of atherosclerotic heart disease, status post coronary artery bypass graft, status post coronary artery stents, aortic valve replacement and chronic hypertension, Crohn's disease, peptic ulcer disease with gastroesophageal reflux disease and anemia of chronic disease. PLAN: At present is to continue heart-healthy diet. He will be started on regular low-dose insulin protocol a.c. meals and at bedtime. He continues with a Lr catheter under the co-direction of Dr. Migel Askew from Urology. He will continue thiamine 100 mg p.o. daily, Proscar 5 mg p.o. daily, Plavix 75 mg p.o. daily, Pepcid 20 mg p.o. at bedtime, Pentasa 1500 mg p.o. b.i.d., heparin protocol, Flomax 0.4 mg p.o. daily, Coumadin 10 mg p.o. one dose tonight, Coreg 3.125 mg p.o. daily and aspirin 81 mg p.o. daily. The patient has a one-to-one sitter to ensure that he will not pull out Lr catheter given previous confusional state. He remains on aspiration and fall precautions. He is receiving daily physical therapy and is being evaluated for transitional care rehab. All of the above was reviewed in detail with the patient, Nursing, family at bedside and co-consultants. All questions were answered. I will order a basic metabolic panel in the a.m. for completeness sake. The goal is to remove his Lr catheter when able. Family is aware of increased risk of urinary tract infection as well as sepsis, but understands the need for the Lr catheter at present. Melany Hernandez MD MTDD
[2017-06-28] MEDS: Insulin Reg-LOW-Coverage SC SCH ×2 (17:51→21:48)
--- NOTE | 2017-06-28 19:28 | PN ---
DATE: 06/28/2017 SUBJECTIVE: The patient was seen sitting in a chair on telemetry. He is currently comfortable. He is awake and alert. A Lr catheter remains in place. Coumadin loading is ongoing. He has began doing more ambulation. MEDICATIONS: His current medications include aspirin, carvedilol, Flomax, IV heparin, insulin, Pentasa, Pepcid, Plavix 75 mg daily, Proscar and Coumadin. OBJECTIVE: GENERAL: He is a very elderly man, who appears comfortable at present time. VITAL SIGNS: His blood pressure is 122/76 with a pulse of 86 and sinus, respirations are 14. He is afebrile. HEENT: No JVD. CHEST: Clear to auscultation and percussion. HEART: [place] prosthetic valve sounds noted. ABDOMEN: Soft, nontender. Normoactive bowel sounds. EXTREMITIES: No edema. DIAGNOSTIC DATA: INR is 1.50, PTT 66.8. IMPRESSION: 1. Coronary artery disease, status post recent percutaneous coronary intervention of vein graft. Procedure complicated by altered mental status, clinically improved. 2. Urinary retention with indwelling Lr catheter. 3. Aortic valve disease, status post mechanical aortic valve replacement. 4. Deconditioned. RECOMMENDATIONS: His current medications will be continued. Coumadin loading will be ongoing with a target INR of 2.5 to 3.0. Transfer to Transitional Care Unit will be planned. Heparin therapy will be continued until his INR is greater than 2.5. All the above was discussed with the patient, his family and nursing staff. Imtiaz Peterson MD
[2017-06-29] MEDS: Heparin25000 units/250ml 1/2NS 25,000 UNITS/250 ML BAG IV PRN (00:27)
[2017-06-29 05:47] LABS: INR 2.61 (0.93-1.08); PARTIAL THROMBOPLASTIN TIME 67.1 Seconds (25.1-36.5); PROTHROMBIN TIME 30.3 SECONDS (9.4-12.5)
[2017-06-29 06:10] LABS: BLOOD UREA NITROGEN 16 mg/dL (7-21); CALCIUM 9.7 mg/dL (8.4-10.5); GFR AFRICAN-AMERICAN > 60; GFR NON-AFRICAN AMERICAN > 60
--- NOTE | 2017-06-29 07:00 | CP.PCM.PN ---
Subjective - Date & Time of Evaluation Date of Evaluation: 06/29/17 Time of Evaluation: 06:58 - Subjective Subjective: Patient was seen at bedside. He had bright red rectal bleeding. Has no other complaints now. Lr catheter was replaced by a few minutes ago. Medical record was reviewed. This 87year old male was admitted after cardiac catheterization, had developed altered mental status and storke and was on heparin. Has PMH of CAD,HTN, acute diverticulitis, dyslipidemia, Crohn's disease, BPH, osteoporosis,arthritis, repair of AAA,AVR, Objective - Vital Signs/Intake and Output Vital Signs (last 24 hours): Temp Pulse Resp BP Pulse Ox 98.5 F 89 19 126/73 96 06/29/17 00:01 06/29/17 00:01 06/29/17 00:01 06/29/17 00:01 06/29/17 00:01 Intake and Output: 06/28/17 06/29/17 18:59 06:59 Intake Total 108 427 Output Total 100 Balance 108 327 - Medications Medications: Current Medications Aspirin (Aspirin Chewable) 81 mg PO DAILY [facility] Last Admin: 06/28/17 11:06 Dose: 81 mg Carvedilol (Coreg) 3.125 mg PO BID [facility] Last Admin: 06/28/17 17:53 Dose: 3.125 mg Clopidogrel Bisulfate (Plavix) 75 mg PO DAILY [facility] Last Admin: 06/28/17 11:05 Dose: 75 mg Famotidine (Pepcid) 20 mg IVP Q12 [facility] Famotidine (Pepcid) 20 mg IVP STAT STA Stop: 06/29/17 06:56 Finasteride (Proscar) 5 mg PO DAILY [facility] Last Admin: 06/28/17 11:05 Dose: 5 mg Heparin Sodium/Sodium Chloride (Heparin 65756 Units/250ml 1/2 Normal Saline) 25 ,000 units in 250 mls @ 9.011 mls/hr IV .Q24H PRN; Protocol; 14 UNITS/KG/HR PRN Reason: ADJUST RATE PER PROTOCOL Last Admin: 06/29/17 00:27 Dose: 14 units/kg/hr, 9.011 mls/hr Insulin Human Regular (Humulin R Low) 0 units SC ACHS [facility] PRN Reason: Protocol Last Admin: 06/28/17 21:48 Dose: Not Given Loperamide HCl (Imodium) 2 mg PO Q6H PRN PRN Reason: diarrhoea Last Admin: 06/28/17 23:03 Dose: 2 mg Mesalamine (Pentasa) 1,500 mg PO BID [facility] Last Admin: 06/28/17 17:51 Dose: 1,500 mg Tamsulosin HCl (Flomax) 0.4 mg PO DAILY [facility] Last Admin: 06/28/17 11:05 Dose: 0.4 mg Thiamine HCl (Vitamin B1 Tab) 100 mg PO DAILY [facility] Last Admin: 06/28/17 11:04 Dose: 100 mg - Labs Labs: 06/26/17 06:30 06/29/17 05:00 PT 30.3 SECONDS (9.4-12.5) H 06/29/17 05:00 INR 2.61 (0.93-1.08) H 06/29/17 05:00 APTT 67.1 Seconds (25.1-36.5) H 06/29/17 05:00 - Constitutional Appears: Well, No Acute Distress - Head Exam Head Exam: ATRAUMATIC, NORMAL INSPECTION, NORMOCEPHALIC - Eye Exam Eye Exam: Normal appearance - ENT Exam ENT Exam: Normal External Ear Exam - Neck Exam Neck Exam: Normal Inspection - Respiratory Exam Respiratory Exam: NORMAL BREATHING PATTERN - Cardiovascular Exam Cardiovascular Exam: absent: JVD - GI/Abdominal Exam GI & Abdominal Exam: absent: Distended - Rectal Exam Rectal Exam: Deferred Additional comments: Inspection of anus does not show active bleeding. Gown and linen are stained with bright red blood. - Exam Additional comments: Deferred. - Extremities Exam Extremities Exam: Normal Inspection - Back Exam Back Exam: NORMAL INSPECTION - Neurological Exam Neurological Exam: Alert, Awake - Psychiatric Exam Psychiatric exam: Normal Affect, Normal Mood - Skin Skin Exam: Normal Color Assessment and Plan - Assessment and Plan (Free Text) Assessment: Rectal bleeding. CAD. S/P PTCA. S/P stroke. HTN. Dyslipidemia. BPH. Plan: Hold heparin. Orhtostatic vitals stat. CBC , PT/INR stat. H & H Q6H x 3 from 1 PM. NPO. Stool for OB. Follow up by . DC current Pepcid order. Pepcid 20 mg IV Q12H , one dose stat.
[2017-06-29 07:25] LABS: BASO # 0.02 K/mm3 (0.0-2.0); BASO % 0.2 % (0.0-3.0); EOS # 0.4 (0.0-0.7); EOS % 3.8 % (1.5-5.0); GRAN # 6.1 (1.4-6.5); GRAN % 64.9 % (50.0-68.0); HEMOGLOBIN 11.5 g/dL (14.0-18.0); LYMPH # 1.8 (1.2-3.4); LYMPH % 19.3 % (22.0-35.0); MEAN CELL VOLUME 90.6 fl (80.0-105.0); MEAN CORPUSCULAR HEMOGLOBIN 29.1 pg (25.0-35.0); MEAN CORPUSCULAR HGB CONC 32.1 g/dl (31.0-37.0); MONO # 1.1 (0.1-0.6); MONO % 11.8 % (1.0-6.0); RBC 3.95 10^6/uL (3.5-6.1); RED CELL DISTRIBUTION WIDTH 16.6 % (11.5-14.5); WHITE BLOOD COUNT 9.4 10^3/ul (4.5-11.0)
[2017-06-29] MEDS: Insulin Reg-LOW-Coverage SC SCH ×4 (08:50→21:57)
[2017-06-29] MEDS: Mesalamine ER Cap 500 MG PO SCH ×2 (11:53→18:58)
[2017-06-29 13:13] LABS: HEMOGLOBIN 12.5 g/dL (14.0-18.0)
[2017-06-29] MEDS ORDERED: Magnesium Citrate Oral SOL (300 ml) PO ONE ×2 (16:12→19:00)
--- NOTE | 2017-06-29 16:13 | CP.PCM.PN ---
<Desirae Mendoza - Last Filed: 06/29/17 16:13> Subjective - Date & Time of Evaluation Date of Evaluation: 06/29/17 Time of Evaluation: 10:45 - Subjective Subjective: Seen and examined at the bedside earlier today, chart reviewed. Daughter at the bedside. Patient reported to have blood per rectum last night and this morning. Heparin drip discontinued. Patient denies nausea, vomiting, shortness of breath or chest pain. No complaints of abdominal pain. Objective - Vital Signs/Intake and Output Vital Signs (last 24 hours): Temp Pulse Resp BP Pulse Ox 97.7 F 73 20 119/72 95 06/29/17 12:00 06/29/17 14:00 06/29/17 12:00 06/29/17 12:00 06/29/17 06:00 Intake and Output: 06/29/17 06/29/17 06:59 18:59 Intake Total 427 Output Total 1300 1200 Balance -873 -1200 - Medications Medications: Current Medications Aspirin (Aspirin Chewable) 81 mg PO DAILY [facility] Last Admin: 06/29/17 11:54 Dose: 81 mg Carvedilol (Coreg) 3.125 mg PO BID [facility] Last Admin: 06/29/17 11:54 Dose: 3.125 mg Clopidogrel Bisulfate (Plavix) 75 mg PO DAILY [facility] Last Admin: 06/29/17 11:54 Dose: 75 mg Famotidine (Pepcid) 20 mg IVP Q12 [facility] Last Admin: 06/29/17 11:53 Dose: 20 mg Finasteride (Proscar) 5 mg PO DAILY [facility] Last Admin: 06/29/17 11:54 Dose: 5 mg Heparin Sodium/Sodium Chloride (Heparin 91792 Units/250ml 1/2 Normal Saline) 25 ,000 units in 250 mls @ 9.011 mls/hr IV .Q24H PRN; Protocol; 14 UNITS/KG/HR PRN Reason: ADJUST RATE PER PROTOCOL Last Admin: 06/29/17 00:27 Dose: 14 units/kg/hr, 9.011 mls/hr Insulin Human Regular (Humulin R Low) 0 units SC ACHS [facility] PRN Reason: Protocol Last Admin: 06/29/17 12:21 Dose: Not Given Loperamide HCl (Imodium) 2 mg PO Q6H PRN PRN Reason: diarrhoea Last Admin: 06/28/17 23:03 Dose: 2 mg Mesalamine (Pentasa) 1,500 mg PO BID [facility] Last Admin: 06/29/17 11:53 Dose: 1,500 mg Tamsulosin HCl (Flomax) 0.4 mg PO DAILY [facility] Last Admin: 06/29/17 11:54 Dose: 0.4 mg Thiamine HCl (Vitamin B1 Tab) 100 mg PO DAILY [facility] Last Admin: 06/29/17 11:54 Dose: 100 mg - Labs Labs: 06/29/17 12:55 06/29/17 05:00 PT 30.3 SECONDS (9.4-12.5) H 06/29/17 05:00 INR 2.61 (0.93-1.08) H 06/29/17 05:00 APTT 67.1 Seconds (25.1-36.5) H 06/29/17 05:00 - Constitutional Appears: No Acute Distress - Head Exam Head Exam: NORMOCEPHALIC - Eye Exam Eye Exam: Normal appearance. absent: Scleral icterus - ENT Exam ENT Exam: Mucous Membranes Moist - Neck Exam Neck Exam: Normal Inspection - Respiratory Exam Respiratory Exam: NORMAL BREATHING PATTERN. absent: Respiratory Distress - Cardiovascular Exam Cardiovascular Exam: +S1, +S2 - GI/Abdominal Exam GI & Abdominal Exam: Soft, Normal Bowel Sounds (vegetable he is). absent: Guarding, Tenderness, Rebound - Rectal Exam Rectal Exam: NORMAL INSPECTION (no blood per rectum) - Extremities Exam Extremities Exam: absent: Calf Tenderness - Neurological Exam Neurological Exam: Alert, Awake, Oriented x3 - Skin Skin Exam: Dry, Warm Assessment and Plan - Assessment and Plan (Free Text) Assessment: Assessment: Rectal bleeding Coronary artery disease Status post change in mental status, post cardiac catheter History of Crohn's disease Status post acute renal failure secondary to obstructive uropathy History of chronic prostatic hypertrophy Plan: On aspirin/Plavix heparin on hold clear liquid Monitor H&H off Coumadin On Flomax/Proscar Continue Pentasa Give dose of magnesium citrate, plan for flexible sigmoidoscopy tomorrow check CBC and BMP in a.m. Discussed with daughter at bedside. Seen and discussed with Dr. Chacon. <Saurav Chacon V - Last Filed: 06/29/17 22:07> Objective - Vital Signs/Intake and Output Vital Signs (last 24 hours): Temp Pulse Resp BP Pulse Ox 98.5 F 64 20 140/72 95 06/29/17 18:00 06/29/17 18:59 06/29/17 18:00 06/29/17 18:59 06/29/17 06:00 Intake and Output: 06/29/17 06/30/17 18:59 06:59 Output Total 1200 Balance -1200 - Medications Medications: Current Medications Aspirin (Aspirin Chewable) 81 mg PO DAILY [facility] Last Admin: 06/29/17 11:54 Dose: 81 mg Carvedilol (Coreg) 3.125 mg PO BID [facility] Last Admin: 06/29/17 18:59 Dose: 3.125 mg Clopidogrel Bisulfate (Plavix) 75 mg PO DAILY [facility] Last Admin: 06/29/17 11:54 Dose: 75 mg Famotidine (Pepcid) 20 mg IVP Q12 [facility] Last Admin: 06/29/17 11:53 Dose: 20 mg Finasteride (Proscar) 5 mg PO DAILY [facility] Last Admin: 06/29/17 11:54 Dose: 5 mg Heparin Sodium/Sodium Chloride (Heparin 96564 Units/250ml 1/2 Normal Saline) 25 ,000 units in 250 mls @ 9.011 mls/hr IV .Q24H PRN; Protocol; 14 UNITS/KG/HR PRN Reason: ADJUST RATE PER PROTOCOL Last Admin: 06/29/17 00:27 Dose: 14 units/kg/hr, 9.011 mls/hr Insulin Human Regular (Humulin R Low) 0 units SC ACHS [facility] PRN Reason: Protocol Last Admin: 06/29/17 21:57 Dose: Not Given Loperamide HCl (Imodium) 2 mg PO Q6H PRN PRN Reason: diarrhoea Last Admin: 06/28/17 23:03 Dose: 2 mg Mesalamine (Pentasa) 1,500 mg PO BID [facility] Last Admin: 06/29/17 18:58 Dose: 1,500 mg Tamsulosin HCl (Flomax) 0.4 mg PO DAILY [facility] Last Admin: 06/29/17 11:54 Dose: 0.4 mg Thiamine HCl (Vitamin B1 Tab) 100 mg PO DAILY [facility] Last Admin: 06/29/17 11:54 Dose: 100 mg - Labs Labs: 06/29/17 18:17 06/29/17 05:00 PT 30.3 SECONDS (9.4-12.5) H 06/29/17 05:00 INR 2.61 (0.93-1.08) H 06/29/17 05:00 APTT 67.1 Seconds (25.1-36.5) H 06/29/17 05:00 Attending/Attestation - Attestation I have personally seen and examined this patient.: Yes I have fully participated in the care of the patient.: Yes I have reviewed all pertinent clinical information, including history, physical exam and plan: Yes Notes (Text): This is an addendum to GI progress report dictated by Desirae Mendoza APN.The patient was seen and examined earlier. Medical records, lab studies, imagings were reviewed. Last 24 hours events reviewed. Agreed with the above treatment plan as outlined in Desirae Mendoza APN's notes the with the addition of the following Hemodynamically stable All for anticoagulation in view of his bleeding per rectum Rectal examination revealed empty rectum no mass no blood Abdomen soft nontender Discussed with the patient's daughter who was at that site. She is very reluctant for her father to have any type of sedation. Discussed with the Dr. Quiñones Patient would need anticoagulation in view of mechanical prostatitic valve We will schedule the patient for flexible sigmoidoscopic examination with no sedation 06/29/17 22:04
--- NOTE | 2017-06-29 17:06 | PN ---
DATE: 06/29/2017 SUBJECTIVE: The patient is seen lying in bed on telemetry. He is comfortable at the present time. He apparently pulled out his Lr catheter yesterday. This has been reinserted by Dr. Askew. In addition, he has been noted to have some bright red blood per rectum. Heparin has been discontinued, and repeat CBC is pending. CURRENT MEDICATIONS: Include aspirin, carvedilol 3.125 mg b.i.d., Flomax, insulin coverage, Pentasa, Pepcid, Plavix 75 mg daily, Proscar. OBJECTIVE: GENERAL: He is very elderly man who appears comfortable at this time. VITAL SIGNS: His blood pressure is 130/78 with a pulse of 76, in sinus, respirations are 14. He is afebrile. HEENT: No JVD. CHEST: Clear to auscultation and percussion. HEART: [place] prosthetic valve sounds noted. ABDOMEN: Soft and nontender with normoactive bowel sounds. EXTREMITIES: No edema. DIAGNOSTIC DATA: Potassium is 4.3, BUN and creatinine are 16 and 0.9. Hemoglobin and hematocrit are 11.5 and 35.8, white count is 9.4, platelet count is 334,000. INR is 2.6. Last PTT was 61.1. IMPRESSION: 1. Coronary artery disease, status post recent percutaneous coronary intervention of left anterior descending graft. 2. Altered mental status, postprocedure currently improved. 3. Bright red blood per rectum, etiology uncertain. Currently on Coumadin, aspirin, and Plavix given his prosthetic mechanical valve and recent percutaneous coronary intervention. 4. Urinary retention, requiring indwelling Lr catheter. 5. Severely deconditioned. RECOMMENDATIONS: Follow CBC as planned. GI evaluation is pending. Heparin will be held for now. Continue anticoagulation. It is certainly necessary given his recent stents and mechanical aortic valve, especially in the presence of possible recent periprocedural cerebrovascular event. We will follow along as needed. Imtiaz Peterson MD
--- NOTE | 2017-06-29 18:20 | US ---
PROCEDURE: Duplex arterial ultrasound of the right groin. HISTORY: Recent cardiac catheterization. Pain and pulsatile mass in the right groin. Evaluate for pseudoaneurysm or fistula. PHYSICIAN(S): Matt Grijalva MD. 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 The aneurysm measures 1.8 cm in greatest transverse dimension. A discrete neck is present. The right common femoral artery is patent. The right common femoral vein is patent. IMPRESSION: 1. 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 This can be considered for thrombin injection if clinically indicated.
[2017-06-30 06:06] LABS: BASO # 0.03 K/mm3 (0.0-2.0); BASO % 0.4 % (0.0-3.0); EOS # 0.3 (0.0-0.7); EOS % 4.5 % (1.5-5.0); GRAN # 4.39 (1.4-6.5); GRAN % 60.2 % (50.0-68.0); HEMOGLOBIN 11.5 g/dL (14.0-18.0); LYMPH # 1.8 (1.2-3.4); LYMPH % 24.3 % (22.0-35.0); MEAN CELL VOLUME 90.3 fl (80.0-105.0); MEAN CORPUSCULAR HEMOGLOBIN 28.5 pg (25.0-35.0); MEAN CORPUSCULAR HGB CONC 31.6 g/dl (31.0-37.0); MEAN PLATELET VOLUME 9.8 fl (7.0-11.0); MONO # 0.8 (0.1-0.6); MONO % 10.6 % (1.0-6.0); RBC 4.03 10^6/uL (3.5-6.1); RED CELL DISTRIBUTION WIDTH 16.3 % (11.5-14.5); WHITE BLOOD COUNT 7.3 10^3/ul (4.5-11.0)
[2017-06-30 06:24] VITALS: O2SAT 96
[2017-06-30 06:25] LABS: BLOOD UREA NITROGEN 13 mg/dL (7-21); CALCIUM 9.9 mg/dL (8.4-10.5); GFR AFRICAN-AMERICAN > 60; GFR NON-AFRICAN AMERICAN > 60
[2017-06-30 06:30] LABS: PROTHROMBIN TIME 46.5 SECONDS (9.4-12.5)
[2017-06-30 06:31] LABS: INR 3.93 (0.93-1.08)
[2017-06-30] MEDS: Insulin Reg-LOW-Coverage SC SCH ×2 (08:21→13:19)
--- NOTE | 2017-06-30 09:00 | PN ---
DATE: 06/29/2017 SUBJECTIVE: This 87-year-old male remains hospitalized on the cardiac unit. He was accepted to the rehab unit for reconditioning, gait training and continued Coumadin with Coumadin bridging while on IV heparin. The family refused to let the patient be transferred because of concerns regarding his confusion and need for one-on-one sitter so the patient would not pull out IVs or Lr catheter. At present, the patient has his Lr catheter draining clear yellow urine. The Lr catheter remains necessary because of urinary retention. The patient has had two failed voiding trials and has chronically elevated PSA level in the setting of prostate hypertrophy. The patient just recently regained mental status clarity after anesthesia for a cardiac cath and stent placement and immobility because of bedridden status. He is being followed by Urology who helped with the management of this case. 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 Earlier, he was noted to have bright red blood per rectum. PHYSICAL EXAMINATION: VITAL SIGNS: Temperature is 98.5, respirations 20, pulse 64 and blood pressure 140/72. Urine output was 1300 mL thus far today. HEENT: Head: Normocephalic, atraumatic. Eyes: No icterus. Ears: Clear. Throat: Noninjected. NECK: Supple. HEART: S1, S2. LUNGS: Clear. ABDOMEN: Soft. EXTREMITIES: No edema. SKIN: Without rash. NEUROLOGICAL: Intact. PSYCHOLOGICAL: Alert. VASCULAR: Legs warm to touch. LABORATORY DATA: Hemoglobin 12.5, hematocrit 38.7. PT/INR 2.61, PTT 67.1. Random blood sugar 121. Urine culture, no growth. Blood culture, no growth at 5 days. Stool C. Diff antigen and toxin both negative. IMPRESSION: An 87-year-old male with acute renal failure with recent renal ultrasound showing right hydronephrosis in the setting of obstructive uropathy secondary to urinary retention from prostate hypertrophy. Now, patient with blood per rectum in the setting of anticoagulation for aortic valve replacement as well as coronary artery stenting. PLAN: The plan at present is to await GI reevaluation regarding possible flexible sigmoidoscopy to further evaluate cause of new-onset GI bleeding. The patient is scheduled for basic metabolic panel, CBC in a.m. and will have a repeat hemoglobin and hematocrit this evening. He has clear yellow urine draining from a Lr catheter that remains necessary. He will continue on Ecotrin, Coreg, Flomax, Pentasa, Pepcid, Plavix, Proscar and thiamine. Both heparin and Coumadin are on hold. Patient is with therapeutic INR. He is ordered to receive a clear liquid diet. His one-to-one sitter continues. He remains on aspiration and fall precautions as well as insulin coverage a.c. meals and h.s. Family declines consideration of subacute rehab or intermediate placement and is hopeful they will be able to bring him home with 24 hours supervision when medically stable. All of the above was discussed in detail with the patient, family, nursing, co-consultants. All questions were answered. Melany Hernandez MD MTDD
[2017-06-30] MEDS: Mesalamine ER Cap 500 MG PO SCH (10:02)
--- NOTE | 2017-06-30 11:19 | CP.PCM.PN ---
<Desirae Mendoza - Last Filed: 06/30/17 11:18> Subjective - Date & Time of Evaluation Date of Evaluation: 06/30/17 Time of Evaluation: 09:20 - Subjective Subjective: S&E at bedside, chart reviewed, daughter at bedside, patient and family reluctant for flexsig since patient has not had anymore bleeding, they feel that blood came post insertion of see, also H/H has been steady and patient stool guiac negative. No new complaints or acute overnight events. Patient had MG citrate and BM were reported to be nonbloody. Objective - Vital Signs/Intake and Output Vital Signs (last 24 hours): Temp Pulse Resp BP Pulse Ox 97.8 F 108 H 20 110/59 L 96 06/30/17 06:00 06/30/17 10:01 06/30/17 06:00 06/30/17 10:01 06/30/17 06:00 Intake and Output: 06/30/17 06/30/17 06:59 18:59 Output Total 725 Balance -725 - Medications Medications: Current Medications Aspirin (Aspirin Chewable) 81 mg PO DAILY [facility] Last Admin: 06/30/17 10:01 Dose: 81 mg Carvedilol (Coreg) 3.125 mg PO BID [facility] Last Admin: 06/30/17 10:01 Dose: 3.125 mg Clopidogrel Bisulfate (Plavix) 75 mg PO DAILY [facility] Last Admin: 06/30/17 10:01 Dose: 75 mg Famotidine (Pepcid) 20 mg IVP Q12 [facility] Last Admin: 06/30/17 10:02 Dose: 20 mg Finasteride (Proscar) 5 mg PO DAILY [facility] Last Admin: 06/30/17 10:01 Dose: 5 mg Heparin Sodium/Sodium Chloride (Heparin 60094 Units/250ml 1/2 Normal Saline) 25 ,000 units in 250 mls @ 9.011 mls/hr IV .Q24H PRN; Protocol; 14 UNITS/KG/HR PRN Reason: ADJUST RATE PER PROTOCOL Last Admin: 06/29/17 00:27 Dose: 14 units/kg/hr, 9.011 mls/hr Insulin Human Regular (Humulin R Low) 0 units SC ACHS [facility] PRN Reason: Protocol Last Admin: 06/30/17 08:21 Dose: Not Given Loperamide HCl (Imodium) 2 mg PO Q6H PRN PRN Reason: diarrhoea Last Admin: 06/28/17 23:03 Dose: 2 mg Mesalamine (Pentasa) 1,500 mg PO BID [facility] Last Admin: 06/30/17 10:02 Dose: 1,500 mg Tamsulosin HCl (Flomax) 0.4 mg PO DAILY [facility] Last Admin: 06/30/17 10:00 Dose: 0.4 mg Thiamine HCl (Vitamin B1 Tab) 100 mg PO DAILY [facility] Last Admin: 06/30/17 10:00 Dose: 100 mg - Labs Labs: 06/30/17 05:30 06/30/17 05:30 PT 46.5 SECONDS (9.4-12.5) H 06/30/17 05:30 INR 3.93 (0.93-1.08) H* 06/30/17 05:30 APTT 67.1 Seconds (25.1-36.5) H 06/29/17 05:00 - Constitutional Appears: No Acute Distress - Eye Exam Eye Exam: Normal appearance. absent: Scleral icterus - ENT Exam ENT Exam: Mucous Membranes Moist - Respiratory Exam Respiratory Exam: NORMAL BREATHING PATTERN. absent: Respiratory Distress - Cardiovascular Exam Cardiovascular Exam: +S1, +S2 - GI/Abdominal Exam GI & Abdominal Exam: Soft, Normal Bowel Sounds. absent: Guarding, Tenderness, Rebound - Extremities Exam Extremities Exam: absent: Calf Tenderness - Neurological Exam Neurological Exam: Alert, Awake, Oriented x3 - Skin Skin Exam: Dry, Warm Assessment and Plan - Assessment and Plan (Free Text) Assessment: Assessment: s/p Rectal bleeding Coronary artery disease Status post change in mental status, post cardiac catheter History of Crohn's disease Status post acute renal failure secondary to obstructive uropathy History of chronic prostatic hypertrophy Plan: On aspirin/Plavix heparin on hold clear liquid Monitor H&H off Coumadin On Flomax/Proscar Continue Pentasa Family reluctanct for flexsigmoidoscopy to be done since no further bleeding. Discussed with daughter at bedside in detail. Seen and discussed with Dr. Chacon. <Saurav Chacon V - Last Filed: 07/01/17 19:44> Objective - Vital Signs/Intake and Output Vital Signs (last 24 hours): Temp Pulse Resp BP Pulse Ox 97.6 F 85 19 103/66 96 06/30/17 12:00 06/30/17 14:00 06/30/17 12:00 06/30/17 12:00 06/30/17 06:00 - Labs Labs: 06/30/17 05:30 06/30/17 05:30 PT 46.5 SECONDS (9.4-12.5) H 06/30/17 05:30 INR 3.93 (0.93-1.08) H* 06/30/17 05:30 APTT 67.1 Seconds (25.1-36.5) H 06/29/17 05:00 Attending/Attestation - Attestation I have personally seen and examined this patient.: Yes I have fully participated in the care of the patient.: Yes I have reviewed all pertinent clinical information, including history, physical exam and plan: Yes Notes (Text): tThis is an addendum to GI progress report dictated by Desirae Mendoza APN.The patient was seen and examined earlier. Medical records, lab studies, imagings were reviewed. Last 24 hours events reviewed. Agreed with the above treatment plan as outlined in Desirae Mendoza APN's notes the with the addition of the following his patient was seen and evaluated on 06/30/2016 in the morning. I did have a detailed discussion with the patient and patient's daughter. Patient was prepared for flexible sigmoidoscopy. The daughter mentioned to me that he had no further bleeding and she did not want him to go forthe procedure. Physical exam reveals no abdominal tenderness. Patient did have bowel movements no blood. INR remains elevated. I did discuss with sort line earlier. Patient has a prosthetic valve. Daughter mentioned that if he has any further bleeding she will reconsider the decision and at the moment she does not want the procedure to be done. Patient and family agreed. Advised to continue low residue. Diet with stool softeners when necessary. Patient is on Pentasa advised to continue that Follow-up hemoglobin and hematocrit 07/01/17 19:40
[2017-06-30 12:01] VITALS: BP 103/66; RESP 19; TEMP 97.6
[2017-06-30 15:07] VITALS: PULSE 85
--- NOTE | 2017-07-01 06:06 | DS ---
HISTORY OF PRESENT ILLNESS: This is an 87-year-old man with known coronary artery disease, who underwent cardiac catheterization and PCI of his LAD vein graft on 06/16 for complaints of progressive and worsening angina. His procedure was complicated by altered mental status postoperatively. 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 He gradually improved. HOSPITAL COURSE: His hospital course was complicated by urinary retention and he required placement of a Lr catheter. He had gradually improved with respect to his mental status as back to baseline. He remains somewhat unstable when ambulating. He has ultimately had been cleared for discharge to home with outpatient physical therapy and close followup. MEDICATIONS: His current medications include aspirin, carvedilol 3.125 mg b.i.d., Flomax 0.4 mg daily, Pentasa 1500 mg b.i.d., Pepcid, Plavix 75 mg daily, Proscar 5 mg daily. DISCHARGE DIAGNOSES: 1. Coronary artery disease, status post percutaneous coronary intervention of vein graft to left anterior descending. 2. Known coronary artery disease, status post prior bypass surgery and aortic valve replacement with [facility] mechanical valve. 3. Urinary retention. PLAN: The patient will be discharged home today prior to discharge. His hemoglobin and hematocrit are 11.5 and 36.4 with a white count of 7.3, platelet count of 314,000. INR is 3.93 and Coumadin is currently on hold. Potassium is 4.2, BUN and creatinine are 13 and 0.9. The patient was instructed to withhold his Coumadin until Monday and have an INR checked in the office as an outpatient. Close outpatient followup will be arranged. The need for uninterrupted aspirin and Plavix therapy was discussed with the patient and his family. Imtiaz Peterson MD
--- NOTE | 2017-07-03 08:37 | PN ---
DATE: 06/30/2017 SUBJECTIVE: This 87-year-old male was examined at his bedside. His and daughter, Sruthi, were present. The patient is being readied for discharge to home. He will be discharged with a Lr catheter and leg bag. This case has been reviewed in detail from a nephrological and urological standpoint with the family and the patient at bedside. The patient will continue with Lr catheter at present given persistent urinary retention in the setting of prostate hypertrophy and recent bedridden status. He is scheduled to see Dr. Migel Askew from Urology in his office next Monday. It is his hope that at that time the Lr catheter will be removed and the patient will be able to void. The family is aware that should that not occur, the patient will have his Lr catheter replaced under the direction of Dr. Migel Askew. The patient at present also was noted to have on laboratory review an elevated PT/INR in the setting of Coumadin loading for chronic aortic valve replacement maintenance and they have been instructed by Dr. Peterson from Cardiology to hold Coumadin until Monday and then resume his basic dose of 4 mg daily, which will be monitored as an outpatient as well. The patient denies any fever, chills, chest pain, shortness of breath. 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 There have been no reports of gross hematuria and all stool studies including rectal exam, guaiac studies and stool occult blood have been negative. The family has declined any colonoscopy or sigmoidoscopy for previously suggested bright red blood per rectum. 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 Urine output had been 850 mL via Lr catheter for today. HEENT: Head: Normocephalic, atraumatic. Eyes: No icterus. Ears: Clear. Throat: Noninjected. NECK: Supple. HEART: S1, S2. LUNGS: Clear. ABDOMEN: Soft. EXTREMITIES: No edema. SKIN: Without rash. NEUROLOGICAL: Intact. PSYCHOLOGICAL: Alert. VASCULAR: Legs warm to touch and Lr catheter. Urine clear and yellow. LABORATORY DATA: PT/INR 3.93. White count 7300, hemoglobin 11.5, hematocrit 36.4, platelets 314,000. Sodium 138, K 4.2, chloride 102, bicarb 29, BUN 13, creatinine 0.9, random blood sugar 124. IMPRESSION: An 87-year-old male with chronic prostate hypertrophy with acute renal failure, now resolved secondary to obstructive uropathy with the need for a persistent Lr catheter at this point in time and comorbidities of type 2 diabetes mellitus, hyperlipidemia, stable atherosclerotic heart disease status post myocardial infarction in the distal past, status post total of 4 coronary artery stents, aortic valve replacement, chronic hypertension, Crohn disease, deconditioning and status post delirium and metabolic encephalopathy secondary to anesthesia for recently placed stents. Mental status now improved. PLAN: Patient is discharged to home. He will continue on Glucophage 500 mg p.o. t.i.d., Flomax 0.4 mg p.o. daily, Zocor 40 mg p.o. daily, Pentasa 1500 mg b.i.d., Coreg 3.125 mg p.o. b.i.d., Ecotrin 81 mg p.o. daily. Coumadin will resume 4 mg p.o. daily in 72 hours, Proscar 5 mg p.o. daily, Flomax 0.4 mg p.o. daily, Pentasa 1500 mg p.o. daily. The patient will follow up with his PMD Urology and Cardiology as outlined. Family has been informed for any further nephrological issues to contact my office for followup. All of the above was reviewed in detail with the patient and family at bedside. All questions were answered. Melany Hernandez MD [facility]
== END 2017-06-30 17:11 | disposition home or self-care (01) | DRG 246 ==
LOC: CATH 06:58 → 2RSO 09:29 → ICU 20:52 → 2RSO 06-23 17:11
PROVIDERS: ADMIT Internal Medicine Cardiovascular Disease; ATTEND Internal Medicine Cardiovascular Disease
PROC: 027034Z Dilation of Coronary Artery, One Artery with Drug-eluting Intraluminal Device, Percutaneous Approach (ICD-10-PCS; principal; 2017-06-16)
PROC: 4A023N7 Measurement of Cardiac Sampling and Pressure, Left Heart, Percutaneous Approach (ICD-10-PCS; 2017-06-16)
PROC: B2161ZZ Fluoroscopy of Right and Left Heart using Low Osmolar Contrast (ICD-10-PCS; 2017-06-16)
PROC: 0T9B70Z Drainage of Bladder with Drainage Device, Via Natural or Artificial Opening (ICD-10-PCS; 2017-06-20)
DX: I25.110 Atherosclerotic heart disease of native coronary artery with unstable angina pectoris (principal); T82.855A Stenosis of coronary artery stent, initial encounter; J69.0 Pneumonitis due to inhalation of food and vomit; N17.9 Acute kidney failure, unspecified; G92 Toxic encephalopathy; I11.0 Hypertensive heart disease with heart failure; I50.9 Heart failure, unspecified; K50.012 Crohn's disease of small intestine with intestinal obstruction; N13.30 Unspecified hydronephrosis; N13.8 Other obstructive and reflux uropathy; F05 Delirium due to known physiological condition; K62.5 Hemorrhage of anus and rectum; T45.515A Adverse effect of anticoagulants, initial encounter; E78.5 Hyperlipidemia, unspecified; I71.2 Thoracic aortic aneurysm, without rupture; M81.0 Age-related osteoporosis without current pathological fracture; N40.1 Benign prostatic hyperplasia with lower urinary tract symptoms; R33.8 Other retention of urine; M19.90 Unspecified osteoarthritis, unspecified site; F17.200 Nicotine dependence, unspecified, uncomplicated; E11.9 Type 2 diabetes mellitus without complications; K21.9 Gastro-esophageal reflux disease without esophagitis; K80.20 Calculus of gallbladder without cholecystitis without obstruction; D63.8 Anemia in other chronic diseases classified elsewhere; R13.10 Dysphagia, unspecified; Y83.8 Other surgical procedures as the cause of abnormal reaction of the patient, or of later complication, without mention of misadventure at the time of the procedure; Y83.1 Surgical operation with implant of artificial internal device as the cause of abnormal reaction of the patient, or of later complication, without mention of misadventure at the time of the procedure; Z95.2 Presence of prosthetic heart valve; I25.2 Old myocardial infarction; Z79.01 Long term (current) use of anticoagulants; Z79.84 Long term (current) use of oral hypoglycemic drugs; Z86.73 Personal history of transient ischemic attack (TIA), and cerebral infarction without residual deficits; Z87.11 Personal history of peptic ulcer disease

== ENCOUNTER 2017-07-05 21:55 | Inpatient (IN) | payer MEDICARE ==
[2017-07-05 21:55] VITALS: BMI 26.0
--- NOTE | 2017-07-05 22:51 | ED PDOC ---
Arrival/HPI - General Time Seen by Provider: 07/05/17 22:08 Historian: Patient, Family - History of Present Illness Narrative History of Present Illness (Text): 07/05/17 22:51 Donnie Salmeron is an 87 year old male, whose past medical history includes BPH, CABG s/p ME, CAD with coronary stents, hypertension, ascending thoracic aneurysm repair, AV valve replacement, Crohn's disease, and dyslipidemia, who presents to the Emergency department for a clogged indwelling See catheter. Daughter states patient had a See catheter placed 2 weeks ago secondary to urinary retention while he was admitted to hospital. Patient was sent to the ER today by urologist due to hematuria, which has returned again with clots. Daughter notes patient regularly takes Coumadin, Plavix, and baby aspirin. Patient denies any fever, chest pain, shortness of breath, abdominal pain, nausea, vomiting, back pain, headache, dizziness, or any other complaints. PMD: Dr. Marie Urologist: Dr. Askew Symptom Onset: Gradual Symptom Course: Unchanged Activities at Onset: Light Context: Home Past Medical History - Provider Review Nursing Documentation Reviewed: Yes - Infectious Disease Hx of Infectious Diseases: None - Cardiac Hx Cardiac Disorders: Yes - Pulmonary Hx Pneumonia: Yes - Neurological HX Cerebrovascular Accident: Yes (TIA's) - HEENT Hx Cataracts: Yes (b/l removed) - Renal Hx Renal Disorder: No - Endocrine/Metabolic Hx Diabetes Mellitus Type 2: Yes - Hematological/Oncological Hx Blood Transfusions: No - Integumentary Hx Dermatological Disorder: No - Musculoskeletal/Rheumatological Hx Musculoskeletal Disorders: Yes (laminectomy) Hx Back Pain: Yes Hx Falls: No Hx Fractures: Yes (back) Hx Osteoporosis: Yes (unsure) - Gastrointestinal Hx Crohn's Disease: Yes - Genitourinary/Gynecological Hx Prostate Problems: Yes (enlarged) Hx Urinary Tract Infection: Yes (3 UTI) - Psychiatric Hx Substance Use: No - Surgical History Hx Appendectomy: Yes Hx Cardiac Catheterization: Yes Hx Coronary Stent: Yes (2 SUSHILA today) Hx Musculoskeletal Surgery: Yes (back) Hx Open Heart Surgery: Yes (CAB) Hx Orthopedic Surgery: Yes (back) Hx Valve Replacement: Yes (aortic valve: St . Se) - Anesthesia Hx Anesthesia Reactions: No Hx Malignant Hyperthermia: No - Suicidal Assessment Feels Threatened In Home Enviroment: No Family/Social History - Physician Review Nursing Documentation Reviewed: Yes Family/Social History: Unknown Family HX Smoking Status: Former Smoker Hx Alcohol Use: No Hx Substance Use: No Hx Substance Use Treatment: No Allergies/Home Meds Allergies/Adverse Reactions: Allergies pneumococcal vaccine Allergy (Severe, Verified 06/14/17 10:57) RASH Anesthetics - Alejandra Type- Parabens Adverse Reaction (Verified 07/05/17 22:54) ANAPHYLAXIS Home Medications: Home Meds Medication Instructions Recorded Confirmed Aspirin [Ecotrin] 81 mg PO DAILY 09/02/15 07/05/17 Mesalamine [Pentasa] 1,500 mg PO BID 09/02/15 07/05/17 Simvastatin [Zocor] 40 mg PO DAILY 11/09/15 07/05/17 Warfarin [Coumadin] 4 mg PO DAILY 11/09/15 07/05/17 metFORMIN [glucOPHAGE] 500 mg PO TID 03/01/16 07/05/17 Review of Systems - Physician Review All systems were reviewed & negative as marked: Yes - Review of Systems Constitutional: Normal. absent: Fevers Eyes: Normal ENT: Normal Respiratory: Normal. absent: SOB, Cough Cardiovascular: Normal. absent: Chest Pain Gastrointestinal: Normal. absent: Abdominal Pain, Diarrhea, Nausea, Vomiting Genitourinary Male: Hematuria, Other (+clogged see catheter) Musculoskeletal: Normal. absent: Back Pain, Neck Pain Skin: Normal. absent: Rash Neurological: Normal. absent: Headache, Dizziness Endocrine: Normal Hemo/Lymphatic: Normal Psychiatric: Normal Physical Exam Vital Signs Reviewed: Yes Vital Signs Temp Pulse Resp BP Pulse Ox 07/05/17 22:48 98.7 F 130 H 17 139/56 L 96 Temperature: Afebrile Blood Pressure: Normal Pulse: Tachycardic Respiratory Rate: Normal Appearance: Positive for: Well-Appearing, Non-Toxic, Comfortable Pain Distress: None Mental Status: Positive for: Alert and Oriented X 3 - Systems Exam Head: Present: Atraumatic, Normocephalic Pupils: Present: PERRL Extroacular Muscles: Present: EOMI Conjunctiva: Present: Normal Mouth: Present: Moist Mucous Membranes Neck: Present: Normal Range of Motion Respiratory/Chest: Present: Clear to Auscultation, Good Air Exchange. No: Respiratory Distress, Accessory Muscle Use Cardiovascular: Present: Regular Rate and Rhythm, Normal S1, S2. No: Murmurs Abdomen: Present: Normal Bowel Sounds, Other (Indwelling see catheter with blood present in bag). No: Tenderness, Distention, Peritoneal Signs Back: Present: Normal Inspection Upper Extremity: Present: Normal Inspection. No: Cyanosis, Edema Lower Extremity: Present: Normal Inspection. No: Edema Neurological: Present: GCS=15, CN II-XII Intact, Speech Normal Skin: Present: Warm, Dry, Normal Color. No: Rashes Psychiatric: Present: Alert, Oriented x 3, Normal Insight, Normal Concentration Medical Decision Making ED Course and Treatment: 07/05/17 22:51 Impression: 87 year old male sent for clogged See catheter today. Plan: -- EKG -- Labs -- Reassess and disposition Prior Visits: Notes and results from previous visits were reviewed. On 06/16/2017, pt was admitted to the hospital for AMS following cardiac catheterization. Pt was d/c home on 06/30/2016 with See catheter in place secondary to urinary retention. Progress Notes: Case was discussed with Dr. Darby, pt's urologist, who saw the pt today because of hematuria with clots. Requests See catheter change and pt be admitted to the hospital. Reviewed EKG, sinus tachycardia at 110 bpm. Non-specific ST/T wave changes. 07/06/17 01:[address] Marie, who is aware and agrees with plan. Accepts pt in to his service. Pt will go to [facility] observation for gross hematuria. Requests Dr. Askew and Dr. Fuentes on consult. - Lab Interpretations Lab Results: 07/05/17 23:24 07/05/17 23:24 Lab Results 07/06/17 01:36: pO2 67 H, VBG pH 7.34, VBG pCO2 42.0, VBG HCO3 22.7, VBG Total CO2 24.0, VBG O2 Sat (Calc) 95.4 H, VBG Base Excess -3.0 L, VBG Potassium 4.1, Glucose 127 H, Lactate 1.2, FiO2 21.0, Sodium 136.0, Chloride 109.0 H, Venous Blood Potassium 4.1 07/05/17 23:24: Sodium 136, Potassium 4.4, Chloride 103, Carbon Dioxide 23, Anion Gap 14, BUN 25 H, Creatinine 1.0, Est GFR ( Amer) > 60, Est GFR ( Non-Af Amer) > 60, Random Glucose 140 H, Calcium 9.4, Total Bilirubin 0.4, AST 45, ALT 31, Alkaline Phosphatase 70, Total Protein 7.4, Albumin 3.7, Globulin 3.7, Albumin/Globulin Ratio 1.0 L 07/05/17 23:24: PT 32.2 H, INR 2.77 H, APTT 34.3 07/05/17 23:24: WBC 13.5 H D, RBC 3.78, Hgb 10.9 L, Hct 33.8 L, MCV 89.4, MCH 28.8, MCHC 32.2, RDW 15.4 H, Plt Count 308, MPV 9.8 I have reviewed the lab results: Yes - EKG Interpretation Interpreted by ED Physician: Yes Type: 12 lead EKG - Medication Orders Current Medication Orders: Sodium Chloride (Sodium Chloride 0.9%) 1,000 mls @ 100 mls/hr IV .Q10H SUSANNA Last Admin: 07/06/17 01:45 Dose: 100 mls/hr eMAR Start Stop Document 07/06/17 01:45 SS (Rec: 07/06/17 01:45 SS [id number]) Intravenous Solution Start Date 07/06/17 Start Time 01:45 Discontinued Medications Ceftriaxone Sodium (Rocephin 1 Gram Ivpb) 1 gm in 100 mls @ 200 mls/hr IV ONCE STA PRN Reason: Protocol Stop: 07/06/17 01:40 Last Admin: 07/06/17 01:44 Dose: 200 mls/hr eMAR Start Stop Document 07/06/17 01:44 SS (Rec: 07/06/17 01:44 SS [id number]) Intravenous Solution Start Date 07/06/17 Start Time 01:44 End Date 07/06/17 - Scribe Statement The provider has reviewed the documentation as recorded by the Scribamanda Westfall All medical record entries made by the Scribe were at my direction and personally dictated by me. I have reviewed the chart and agree that the record accurately reflects my personal performance of the history, physical exam, medical decision making, and the department course for this patient. I have also personally directed, reviewed, and agree with the discharge instructions and disposition. Disposition/Present on Arrival - Present on Arrival Any Indicators Present on Arrival: No History of DVT/PE: No History of Uncontrolled Diabetes: No Urinary Catheter: No History of Decub. Ulcer: No History Surgical Site Infection Following: None - Disposition Have Diagnosis and Disposition been Completed?: Yes Diagnosis: Gross hematuria Disposition: HOSPITALIZED Disposition Time: 02:07 Condition: GOOD Referrals: Pelon Askew MD [Primary Care Provider] - Follow up with primary
[2017-07-06 00:05] LABS: INR 2.77 (0.93-1.08); PARTIAL THROMBOPLASTIN TIME 34.3 Seconds (25.1-36.5); PROTHROMBIN TIME 32.2 SECONDS (9.4-12.5)
[2017-07-06 00:08] LABS: HEMOGLOBIN 10.9 g/dL (14.0-18.0); MEAN CELL VOLUME 89.4 fl (80.0-105.0); MEAN CORPUSCULAR HEMOGLOBIN 28.8 pg (25.0-35.0); MEAN CORPUSCULAR HGB CONC 32.2 g/dl (31.0-37.0); MEAN PLATELET VOLUME 9.8 fl (7.0-11.0); RBC 3.78 10^6/uL (3.5-6.1); RED CELL DISTRIBUTION WIDTH 15.4 % (11.5-14.5); WHITE BLOOD COUNT 13.5 10^3/ul (4.5-11.0)
[2017-07-06 00:19] LABS: ALBUMIN 3.7 g/dL (3.0-4.8); ALT/SGPT 31 U/L (7-56); AST/SGOT 45 U/L (17-59); BLOOD UREA NITROGEN 25 mg/dL (7-21); CALCIUM 9.4 mg/dL (8.4-10.5); GFR AFRICAN-AMERICAN > 60; GFR NON-AFRICAN AMERICAN > 60
[2017-07-06] MEDS ORDERED: cefTRIAXone 1 gm 1 GM/100 ML BAG IV STA (01:11)
[2017-07-06] MEDS: Sodium Chloride 0.9% 1,000 ML IV SCH ×3 (01:45→22:46)
[2017-07-06 01:52] LABS: VENOUS BLOOD GAS PO2 67 mm/Hg (30-55); VENOUS BLOOD PH 7.34 (7.32-7.43)
[2017-07-06 02:13] LABS: URINE BILIRUBIN MODERATE (NEGATIVE); URINE BLOOD LARGE (NEGATIVE); URINE GLUCOSE (UA) 100 mg/dL (NEGATIVE); URINE LEUKOCYTE ESTERASE LARGE Leu/uL (NEGATIVE); URINE NITRATE POSITIVE (NEGATIVE); URINE PROTEIN >=300 mg/dL (<30 mg/dL); URINE UROBILINOGEN >=8.0 E.U./dL (<1 E.U./dL)
[2017-07-06 02:15] LABS: URINE APPEARANCE CLOUDY (CLEAR); URINE COLOR RED (YELLOW)
[2017-07-06 02:16] LABS: URINE RBC TNTC /hpf (0-2)
[2017-07-06 02:17] LABS: URINE BACTERIA SMALL (NEG); URINE EPITHELIAL CELLS 0 - 2 /hpf (0-5)
[2017-07-06] MEDS: Mesalamine ER Cap 500 MG PO SCH ×2 (09:06→17:41)
--- NOTE | 2017-07-06 09:06 | PCM.URO ---
Urology Progress Note - Subjective Hematuria: Yes - Objective Lab Studies: Reviewed (gross hematuria, retention, elevated psa plans :see, may need cystoscopy-- will follow) Intake & Output: Intake & Output 07/05/17 07/06/17 07/06/17 18:59 06:59 18:59 Intake Total 0 Output Total 2400 Balance -2400 Intake: Oral 0 Output: Urine 2400 Urethral (See) 2400 Other: Voiding Method Indwelling Catheter # Bowel Movements 0 Vital Signs: Vital Signs - 24 hr 07/06/17 07/06/17 07/06/17 03:27 05:30 06:09 Temperature 98 F Pulse Rate 100 H 102 H 95 H Pulse Rate [ 95 H Bilateral Radial] Respiratory 18 18 18 Rate Blood Pressure 108/61 120/69 112/66 O2 Sat by Pulse 98 98 Oximetry
--- NOTE | 2017-07-06 17:58 | CARD ---
APPROVED REPORT EKG Measurement Heart [id number] ID [id number] <Conclusion> Sinus tachycardia Low voltage QRS Anteroseptal infarct, age undetermined Abnormal ECG
--- NOTE | 2017-07-06 23:13 | HP ---
CHIEF COMPLAINT AND HISTORY OF PRESENT ILLNESS: This is an 87-year-old male who is coming into the hospital with complaints of hematuria. The patient was recently discharged from the hospital about a week ago after he had stents placement, was placed on Plavix. He has a past medical history of coronary artery disease, BPH, hypertension, thoracic aneurysm repair, AV valve disease, Crohn's disease, dyslipidemia. The patient had a clogged indwelling catheter. The patient's daughters stated that the catheter was placed 2 weeks ago because of urinary retention. The patient's daughter spoke to Dr. Askew, the urologist on the case. The patient says he is comfortable. He has no fevers or chills. No nausea. No vomiting. No abdominal pain. No back pain. No dysuria or frequency. No nocturia. ALLERGIES: TO PNEUMOVAX AND ANESTHETICS. HOME MEDICATIONS: Have been reviewed. The patient is on Coumadin as well, Zocor, Pentasa, aspirin, metformin. PAST MEDICAL HISTORY: 1. BPH. 2. Coronary artery disease, status post CABG. 3. Dyslipidemia. 4. Hypertension. 5. Aortic valve replacement, on anticoagulation. 6. Crohn's disease. 7. Small bowel obstruction. FAMILY HISTORY: Noncontributory. SOCIAL HISTORY: The patient denies smoking and drinking. PAST SURGICAL HISTORY: CABG, aortic valve replacement, thyroidectomy, spinal surgery. PHYSICAL EXAMINATION: VITAL SIGNS: Temperature is 98.7, pulse is 90s to 100, the patient's blood pressure is 112/66, respirations 18, height is 5 feet 3, weight is 140 pounds, BMI is 24. GENERAL: The patient lying in bed, uncomfortable, and in no acute distress. HEENT: Atraumatic and normocephalic. Anicteric sclerae. Moist mucosa. [place] conjunctivae. No oral lesions. NECK: No JVD, anterior and posterior adenopathy, thyromegaly, or bruits. CARDIOVASCULAR: S1 and S2 regular. No murmur, rubs, or gallop. LUNGS: Clear to auscultation bilaterally. No wheezes, rales, or rhonchi. ABDOMEN: Bowel sounds are positive. Soft, nontender and nondistended. No hepatosplenomegaly. No rebound and no guarding EXTREMITIES: No cyanosis, clubbing, or edema. NEUROLOGIC: No facial asymmetry. Tongue is midline. No uvula deviation. Power is 5/5 upper extremity and lower extremity. Sensation intact in upper extremity and lower extremity. PSYCHIATRIC: He is awake, alert and oriented x3. No anxiety or depression. He has normal affect. GENITOURINARY: No CVA tenderness. VASCULAR: 2+ pulses in the carotid pulses and pedal pulses. SKIN: No erythema or nodules SPINE: Shows normal curvature. CHEST: There is a thoracic spine scar on the chest. LABORATORY DATA: White count of 13.5, hemoglobin 10.9. Chemistry shows a creatinine of 1.0. The patient's INR is 2.7. Urine shows blood that is large, nitrites are positive, bilirubin is moderate. Creatinine is 1.0. EKG done shows low-voltage QRS with sinus tachycardia at 110, QTc is 427. ASSESSMENT: 1. Hematuria. 2. Aortic valve replacement with anticoagulation on hold. 3. Hypertension. 4. Dyslipidemia. 5. Coronary artery disease. 6. Benign prostatic hypertrophy. 7. Osteoporosis. 8. Crohn's, chronic, stable. PLAN: The patient is going to be admitted to the hospital. He is going to have repeat blood work in the morning with a CBC and CMP. I did speak to Dr. Askew regarding the case. The patient must be followed by Dr. Fuentes. The patient is on carvedilol. He is going to continue with mesalamine for his Crohn's. The patient is on Rocephin for antibiotic. He is on IV fluids. I will decrease the patient's IV fluids at this point. He is going to be on heart-healthy diet. I did speak to Dr. Askew regarding the case. Reji Marie MD
[2017-07-07] MEDS: Sodium Chloride 0.9% 1,000 ML IV SCH (04:49)
[2017-07-07 06:37] LABS: MEAN CELL VOLUME 89.6 fl (80.0-105.0); MEAN CORPUSCULAR HEMOGLOBIN 28.6 pg (25.0-35.0); MEAN PLATELET VOLUME 8.9 fl (7.0-11.0); RBC 2.97 10^6/uL (3.5-6.1); RED CELL DISTRIBUTION WIDTH 15.7 % (11.5-14.5)
[2017-07-07 06:45] LABS: HEMOGLOBIN 8.5 g/dL (14.0-18.0)
[2017-07-07 07:17] LABS: ALB/GLOB RATIO 0.9 (1.1-1.8); ALBUMIN 2.8 g/dL (3.0-4.8); ALT/SGPT 29 U/L (7-56); AST/SGOT 37 U/L (17-59); BLOOD UREA NITROGEN 12 mg/dL (7-21); CALCIUM 8.6 mg/dL (8.4-10.5); GFR AFRICAN-AMERICAN > 60; GFR NON-AFRICAN AMERICAN > 60
--- NOTE | 2017-07-07 09:13 | PN ---
DATE: 07/07/2017 SUBJECTIVE: The patient has no complaints of any chest pain or shortness of breath or headaches, or dizziness. PHYSICAL EXAMINATION VITAL SIGNS: Temperature 98, pulse 95, blood pressure is 112/66, respirations 18. GENERAL: The patient is lying in bed, flat, comfortable. HEENT: No oral lesion. Anicteric sclerae. Moist mucosa. NECK: No JVD, adenopathy, or thyromegaly. CARDIOVASCULAR: S1 and S2, regular. No murmurs, rubs, or gallops. LUNGS: Clear to auscultation bilaterally. No wheeze, rales, or rhonchi. ABDOMEN: Bowel sounds are positive, soft, nontender and nondistended. EXTREMITIES: no cyanosis, clubbing or edema. ASSESSMENT: 1. Hematuria. 2. BPH. 3. Aortic valve replacement, anticoagulation . 4. Hypertension. 5. Coronary artery disease. 6. Dyslipidemia. 7. Osteoporosis. 8. Crohn's, chronic, stable. PLAN: Lipitor for dyslipidemia. He will have followup with me. The patient will continue with Rocephin for antibiotics. He is on IV fluids. He has blood cultures that are negative. The patient has a blood work that is pending. He is on a heart healthy diet. Reji Marie MD
[2017-07-07] MEDS: Mesalamine ER Cap 500 MG PO SCH ×2 (09:48→17:22)
[2017-07-07] MEDS: cefTRIAXone 1 gm 1 GM/100 ML BAG IVPB SCH (09:49)
[2017-07-07 13:45] LABS: PROTHROMBIN TIME 30.3 SECONDS (9.4-12.5)
[2017-07-07 13:53] LABS: INR 2.58 (0.93-1.08); PARTIAL THROMBOPLASTIN TIME 24.4 Seconds (25.1-36.5)
[2017-07-07 16:39] LABS: HEMOGLOBIN 8.7 g/dL (14.0-18.0); MEAN CELL VOLUME 89.6 fl (80.0-105.0); MEAN CORPUSCULAR HEMOGLOBIN 28.2 pg (25.0-35.0); MEAN CORPUSCULAR HGB CONC 31.5 g/dl (31.0-37.0); MEAN PLATELET VOLUME 9.2 fl (7.0-11.0); RBC 3.08 10^6/uL (3.5-6.1); RED CELL DISTRIBUTION WIDTH 15.5 % (11.5-14.5); WHITE BLOOD COUNT 8.5 10^3/ul (4.5-11.0)
[2017-07-07] MEDS ORDERED: Iohexol 350 MG/100 ML VIAL ONE (19:09)
--- NOTE | 2017-07-07 20:02 | CP.PCM.PN ---
Subjective - Date & Time of Evaluation Date of Evaluation: 07/07/17 Time of Evaluation: 20:01 - Subjective Subjective: # 20 angiocath was inserted in left distal forearm. Objective - Vital Signs/Intake and Output Vital Signs (last 24 hours): Temp Pulse Resp BP Pulse Ox 98.2 F 87 18 135/85 98 07/07/17 15:26 07/07/17 17:22 07/07/17 15:26 07/07/17 17:22 07/07/17 06:18 Intake and Output: 07/07/17 07/08/17 18:59 06:59 Intake Total 360 Output Total 1200 Balance -840 - Medications Medications: Current Medications Atorvastatin Calcium (Lipitor) 20 mg PO HS [facility] Last Admin: 07/06/17 21:05 Dose: 20 mg Carvedilol (Coreg) 3.125 mg PO BID [facility] Last Admin: 07/07/17 17:22 Dose: 3.125 mg Finasteride (Proscar) 5 mg PO DAILY [facility] Last Admin: 07/07/17 09:49 Dose: 5 mg Ceftriaxone Sodium (Rocephin 1 Gram Ivpb) 1 gm in 100 mls @ 100 mls/hr IVPB DAILY [facility] PRN Reason: Protocol Last Admin: 07/07/17 09:49 Dose: 100 mls/hr Mesalamine (Pentasa) 1,500 mg PO BID [facility] Last Admin: 07/07/17 17:22 Dose: 1,500 mg - Labs Labs: 07/07/17 16:30 PT 30.3 SECONDS (9.4-12.5) H 07/07/17 13:15 INR 2.58 (0.93-1.08) H 07/07/17 13:15 APTT 24.4 Seconds (25.1-36.5) L 07/07/17 13:15
--- NOTE | 2017-07-07 22:46 | CT ---
EXAM: CT Abdomen and Pelvis With Intravenous Contrast EXAM DATE/TIME: 07/07/2017 3:00 PM CLINICAL HISTORY: 87 years old, male; Signs and symptoms; Other: Hematuria; Additional info: Rule out bleed TECHNIQUE: Axial computed tomography images of the abdomen and pelvis with intravenous contrast. All CT scans at this facility use one or more dose reduction techniques, viz.: automated exposure control; ma/kV adjustment per patient size (including targeted exams where dose is matched to indication; i.e. head); or iterative reconstruction technique. Coronal and sagittal reformatted images were created and reviewed. CONTRAST: 100 mL of OMNI administered intravenously. COMPARISON: CT - ABD PELVIS W/O PO OR IV CONT 2017-06-17 08:54 FINDINGS: Lower thorax: There is dilatation of the ascending aorta 5.2 cm in diameter. There are calcifications in the aortic root. Distal thoracic aorta is normal in caliber. The heart is mildly enlarged. There are coronary artery calcifications. There is atelectasis and scarring at the lung bases ABDOMEN: Liver: unremarkable Gallbladder and bile ducts: Gallbladder is incompletely distended. There is mild gallbladder wall prominence. There is minimal pericholecystic fluid/edema. There are small gallstones.Common duct is unremarkable. Pancreas: Pancreas is mildly atrophic. Spleen: unremarkable Adrenals: unremarkable Kidneys and ureters: There is a small low attenuation right renal lesion too small to accurately characterize. There is mild thickening and enhancement of bilateral renal pelvic and proximal ureteral mucosa. There is mild ureterectasis. Stomach and bowel: Stomach is distended with ingested material. Rotation is normal. Small bowel is mildly distended with fluid and air. Distal ileum is abnormal. There is wall thickening and luminal narrowing. Wall thickening extends to the terminal ileum. Streak limits evaluation of the ileocecal region. Appendix is not visualized.Streak limits evaluation of the colon. There is descending colon and sigmoid diverticulosis. Minimal inflammation in the left lower quadrant. Appendix: See stomach and bowel PELVIS: Bladder: Bladder is almost empty. There is bladder wall thickening and trabeculation. There is air in the bladder. There is a Lr catheter. Reproductive: Prostate is enlarged. Seminal vesicles are unremarkable. ABDOMEN and PELVIS: Intraperitoneal space: There is minimal fluid in the left colic gutter. There is no free air. Bones/joints: There are postsurgical changes of median sternotomy. Bony structures are osteopenic. There are degenerative changes. There is a compression fracture of T12. There is an old compression deformity at L5 with vertebroplasty. Soft tissues: unremarkable Vasculature: There is hematoma in the right groin which may be actively bleeding. Hemorrhage measures approximately 2.6 x 1.9 x 1.6 cm. There are atherosclerotic calcifications in the abdominal aorta. Aorta Is ectatic. Lymph nodes: There are no pathologically enlarged para-aortic nodes. Other findings: There are multiple clips in the lower mediastinum. IMPRESSION: Right groin hematoma which may be actively bleeding; 5.2 cm ascending aortic aneurysm no leak or dissection seen at this time; atherosclerotic disease in the abdominal aorta and iliacs; gallstones, cholecystitis cannot be excluded; terminal ileitis, infectious versus inflammatory; diverticulosis, early/mild diverticulitis cannot be excluded; enlarged prostate; thickened trabeculated bladder wall, mild ureterectasis most likely due to bladder wall thickening Additional nonemergent findings as described above.
[2017-07-08] MEDS: Mesalamine ER Cap 500 MG PO SCH ×2 (10:05→18:18)
[2017-07-08] MEDS: cefTRIAXone 1 gm 1 GM/100 ML BAG IVPB SCH (10:06)
--- NOTE | 2017-07-08 10:34 | PN ---
DATE: 07/08/2017 SUBJECTIVE: The patient is seen lying in bed on 5R. He is seen in the presence of his daughter. He is currently comfortable. Lr catheter remains in place. His hematuria appears to be clearing. His last INR was 2.58 yesterday. Aspirin, Plavix and Coumadin remain on hold. MEDICATIONS: His current medications include carvedilol 3.125 mg b.i.d., Lipitor 20 mg daily, Pentasa, Proscar and Rocephin. PHYSICAL EXAMINATION GENERAL: He is a very elderly man who appears comfortable at rest. VITAL SIGNS: His blood pressure is 112/56 with a pulse of 66, respirations are 14. He is afebrile. HEENT: No JVD. CHEST: Clear to auscultation and percussion. HEART: [place] prosthetic valve sounds with no pathological gallops noted. ABDOMEN: Soft and nontender with normoactive bowel sounds. He does have a pulsatile mass in the right groin which appears enlarged compared to his last evaluation. EXTREMITIES: No edema. DIAGNOSTIC DATA: Morning blood work is pending. Hemoglobin yesterday was 8.7. IMPRESSION: 1. Recent hematuria, appears to be improving. 2. Coronary artery disease, status post prior bypass surgery and recent percutaneous coronary intervention of left anterior descending artery, vein graft; remains off aspirin, Plavix at the present time. 3. Status post aortic valve replacement with St. Se valve, currently off anticoagulation. 4. Enlarging right femoral artery pseudoaneurysm. 5. Rest of problems as noted. RECOMMENDATIONS: 1. Dr. Matt Grijalva will be contacted for evaluation of possible pseudoaneurysm and thrombin injection. 2. Aspirin, Plavix and Coumadin should be resumed as soon as felt safe by Dr. Askew. Obviously, prolonged withholding of anticoagulation run the risk of calf thrombosis with a mechanical prosthetic aortic valve as well as stent thrombosis given the recent drug-eluting stent placed in his vein graft. We will continue to follow along and make further recommendations as appropriate. Imtiaz Peterson MD
--- NOTE | 2017-07-08 16:37 | PCM.URO ---
Urology Progress Note - Objective Lab Studies: Reviewed (urine is david plans : am labs, trial of void , will follow along) Lab Results Last 24 Hours: Laboratory Results - last 24 hr 07/07/17 16:30 WBC 8.5 D RBC 3.08 L Hgb 8.7 L Hct 27.6 L MCV 89.6 MCH 28.2 MCHC 31.5 RDW 15.5 H Plt Count 238 MPV 9.2 Intake & Output: Intake & Output 07/07/17 07/08/17 07/08/17 18:59 06:59 18:59 Intake Total 360 1620 620 Output Total 1200 1700 500 Balance -840 -80 120 Intake: Oral 360 1620 620 Output: Urine 1200 1700 500 Urethral (Lr) 1200 1700 500 Other: # Bowel Movements 0 0 Vital Signs: Vital Signs - 24 hr 07/07/17 07/08/17 07/08/17 17:22 00:30 08:04 Temperature 97.7 F 98.1 F Pulse Rate 87 73 67 Respiratory 18 18 Rate Blood Pressure 135/85 123/65 113/57 L O2 Sat by Pulse 98 98 Oximetry 07/08/17 10:06 Temperature Pulse Rate 55 L Respiratory Rate Blood Pressure 102/49 L O2 Sat by Pulse Oximetry
[2017-07-09 07:25] LABS: BASO # 0.04 K/mm3 (0.0-2.0); BASO % 0.5 % (0.0-3.0); EOS # 0.5 (0.0-0.7); EOS % 5.6 % (1.5-5.0); GRAN # 5.41 (1.4-6.5); GRAN % 63.4 % (50.0-68.0); HEMOGLOBIN 8.8 g/dL (14.0-18.0); LYMPH # 1.8 (1.2-3.4); LYMPH % 21.4 % (22.0-35.0); MEAN CELL VOLUME 90.8 fl (80.0-105.0); MEAN CORPUSCULAR HEMOGLOBIN 28.8 pg (25.0-35.0); MEAN CORPUSCULAR HGB CONC 31.7 g/dl (31.0-37.0); MEAN PLATELET VOLUME 9.6 fl (7.0-11.0); MONO # 0.8 (0.1-0.6); MONO % 9.1 % (1.0-6.0); RBC 3.06 10^6/uL (3.5-6.1); RED CELL DISTRIBUTION WIDTH 15.2 % (11.5-14.5); WHITE BLOOD COUNT 8.5 10^3/ul (4.5-11.0)
[2017-07-09 07:45] LABS: INR 1.66 (0.93-1.08); PROTHROMBIN TIME 19.3 SECONDS (9.4-12.5)
[2017-07-09 08:12] LABS: ALBUMIN 3.3 g/dL (3.0-4.8); ALT/SGPT 48 U/L (7-56); AST/SGOT 44 U/L (17-59); BLOOD UREA NITROGEN 9 mg/dL (7-21); CALCIUM 9.3 mg/dL (8.4-10.5); GFR AFRICAN-AMERICAN > 60; GFR NON-AFRICAN AMERICAN > 60
--- NOTE | 2017-07-09 08:46 | PN ---
DATE: 07/09/2017 SUBJECTIVE: The patient is seen lying in bed on 5R. He is currently comfortable. His Lr catheter has been removed. He denies any chest pain or dyspnea. His mental status appears stable. CURRENT MEDICATIONS: Include carvedilol 3.125 mg daily, Lipitor 20 mg daily, Pentasa, Proscar and Rocephin. OBJECTIVE: GENERAL: He is a very elderly man who appears comfortable at rest. VITAL SIGNS: His blood pressure is 136/66 with a pulse of 90, respirations are 14, he is afebrile. HEENT: No JVD. CHEST: Clear to auscultation and percussion. HEART: [place] valve sounds heard. ABDOMEN: Soft, nontender, normoactive bowel sounds. EXTREMITIES: A moderate size pulsatile mass is present in the right groin. No edema noted. DIAGNOSTIC DATA: Morning blood work is pending. IMPRESSION: 1. Recent hematuria, clinically improved. 2. Coronary artery disease, status post prior bypass surgery and recent vein graft PCI with drug-eluting stent. 3. Status post aortic valve replacement with mechanical St. Se valve, currently off anticoagulation. 4. Right femoral artery pseudoaneurysm. RECOMMENDATIONS: His antiplatelet and anticoagulation remains on hold. Dr. Matt Grijalva was contacted and will arrange for thrombin injection of his right femoral artery pseudoaneurysm in the morning. His aspirin, Plavix and Coumadin therapy should be resumed as soon as possible given the presence of a recent drug-eluting stent as well as mechanical aortic valve. We will continue to follow and make further recommendations as appropriate. Imtiaz Peterson MD
[2017-07-09] MEDS: Mesalamine ER Cap 500 MG PO SCH ×2 (09:21→18:14)
[2017-07-09] MEDS: cefTRIAXone 1 gm 1 GM/100 ML BAG IVPB SCH (09:21)
[2017-07-09] MEDS ORDERED: Sodium Chloride 0.9% 1,000 ML IV STA (10:38)
[2017-07-09] MEDS ORDERED: Sodium Chloride 0.9% 1,000 ML IV SCH (12:00)
[2017-07-09 12:10] LABS: IRON 32 ug/dL (45-180)
[2017-07-09 12:20] LABS: TOTAL IRON BINDING CAPACITY 280 ug/dL (261-462)
[2017-07-09 12:44] LABS: % IRON SATURATION 11 % (20-55)
--- NOTE | 2017-07-10 09:15 | PN ---
DATE: 07/07/2017 Please see the previously dictated consult note and handwritten note. SUBJECTIVE: Mr. Salmeron is currently resting in bed comfortably. He is here with daughter and his . 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 Most recently, the patient was here for cardiac cath and then postop after the cardiac cath, he wanted retention, this began in 05/2017. He also had a very significant, see the plan as listed below and outlined. After his cardiac procedure, he underwent diminished mental status changes. According to the radiology, he had 3 CAT scans, which did not show any stroke, but concerns for strokes are from deoxygenation. He also had at that time an urinary retention, so he was seen by Urology as well. Eventually, his mental status got much improved. He was then discharged home with a Lr, we gave a voiding trial. The patient failed the voiding trial. Upon removal of the Lr catheter without any procedure, the patient at that time just prior to removing the catheter, he had bleeding just from the deflating the balloon, I removed it myself. At that time, I also looked in his bladder, no major abnormalities were detected. In fact, at that time, we also checked, he had been recently placed on Plavix. He has been on Coumadin for a long, long time. In fact, his Coumadin his INR was 1.2 the day before my office, which was Monday on Monday, it was 1.0 and then on Monday which is 07/05/2017 it was 1.5. Upon admission to the hospital later the patient's INR is up at 2.7 with PT above 30. The patient again had to receive an extra dose of Coumadin of 8 mg on Monday. Regarding his other medication, he is on Plavix. We do not currently have any testing on his platelet function. He has been on Plavix, although this has been stopped since the time of admission. See the previously dictated note. Though, he is in the hospital now. He is still having hematuria. Today, his labs are as follows: His hemoglobin is 8.5 and his hematocrit is 26%. The main labs are otherwise unremarkable. INR trending below. In the interim, his Lr catheter is drained. He has no discomfort. It is actually irrigating well, I irrigated myself. In fact, I even annabel two little blood clots, which is better than previously there were no clots, but it irrigates well. The remainder of the past medical and surgical is otherwise unchanged. The patient of Dr. Fuentes. The patient is under the care of Dr. Marie. REVIEW OF SYSTEMS: As listed above, otherwise, noncontributory. SOCIAL HISTORY: As mentioned here with his daughter. PHYSICAL EXAMINATION: ABDOMEN: His abdomen is relatively soft, difficult to evaluate, but the abdomen is not grossly distended. Lr catheter is in place, draining bloody urine. Everything else is otherwise unremarkable. The CT scan I reviewed again, the CT scan at the end of 05/2017. There is definitely no obvious lesions in my reading. I have to check the official report as well. DIAGNOSES: 1. Urinary retention. 2. Gross hematuria. 3. Multiple medical issues. SUMMARY: This is an 87-year-old gentleman, he has had a bypass, he has had cardiac stents, new. He is now bleeding significantly, it seems only to be prostatic bleeding, not a diffuse coagulopathy. Catheter is draining well. I discussed with the patient at length and his daughter at length. Also discussed with Dr. Fuentes. From Urology standpoint more often this generalized picture and not a specific area within the prostate, so goal therefore is cystoscopy is sometimes useful, but sometime not as helpful finding one blood vessel, etc., or bleeding source. There is great concern to give the patient anesthesia, specifically the use of some of his routine medications that we use those were used previously and exact etiology of his mental status change is unclear. We are going to try to monitor him and see what other ways we offer management. Having stopped the Coumadin and Plavix, they improved his PT and PTT and platelet functioning. At this point, we will plan the followin. We are going to repeat an INR now and hemoglobin and hematocrit now. 2. We are going to get a CAT scan of the abdomen and pelvis to see if there are any changes to suggest any bleeding site from the previous CAT scan. We may consider cystoscopy and that the daughter/the patient's request, may be considered without anesthesia, just under local; although I do not recommend that. Further plans will follow depending on how the patient does clinically. The goal is to try not to do procedures. May consider CBI. We may consider traction. We may consider many different options. But in the interim, the plan Urology estrada is that the patient is slowly drifting down, perhaps consideration for a transfusion of platelets, the transfusion of packed red cells, even consideration of the FFP should be entertained. We will leave this all to the labor supervisor as well. Consideration for a Hematology consult be entertained as well. In the interim, leave the Lr to the drainage, we will follow along and make decision. Migel Askew MD
--- NOTE | 2017-07-10 09:18 | CON ---
DATE: 07/06/2017 UROLOGY CONSULTATION REASON FOR CONSULTATION: Urinary retention and hematuria. 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 Most recently, towards the end of May around Leti time, he was in the hospital for cardiac reasons and retention. In between the initial discharge home and today, the patient has had an indwelling. In between the initial discharge home and today, the patient has had an indwelling Lr catheter. I spoke to the daughter a couple of times today. They got it working perfectly; maybe even had little blood clots in it. This was on Monday or Monday of this week, which is 07/03 and 07/04. We discussed the options and eventually they came to the office on 07/05. We would give him voiding trial. As we took the catheter out, we noticed some blood present. We watched the patient, he was not able to void all day and then so we put the catheter back in. Patient is now admitted with gross hematuria and Urology was consulted for further recommendations. See below. PAST MEDICAL AND SURGICAL HISTORY: All listed on the chart. In the hospital, he is under the care of Dr. 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 SOCIAL HISTORY: Socially, he lives with his , his daughter. PHYSICAL EXAMINATION: GENERAL: A well-nourished male. No apparent distress. VITAL SIGNS: Noted. As a result of the indwelling Lr catheter being in place, I irrigated it. It is irrigating well. Not really much in the way of clots. It irrigates well. LABORATORY DATA: Laboratory values are noted. What is of note is his INR was 1.2 apparently on Monday, then in my office it was 1.5, and then upon admission it was 2.7. Repeat blood work should be obtained, see below. Hemoglobin was about 10 and hematocrit was in the 30s. See the previously done labs from this hospital when he was here in May. The remainder of the labs were essentially relatively within normal limits. DIAGNOSES: 1. Gross hematuria with urinary retention. 2. Elevated prostate-specific antigen. He has an prostate-specific antigen of about 8.9 and actually when he was in the hospital his prostate-specific antigen was 9. 3. Concerning is the bleeding, especially in this setting. The underlying possibility for malignancy is very high for prostate cancer . 4. The other issue is coagulopathy from Coumadin, although he has been on Coumadin for years. 5. The other possibility is the new onset of Plavix and this is concerning. Diffuse bleeding from prostatic bleeding on Plavix is of tremendous difficulty. So, from a Urology standpoint, at this point, we are going to the maintain Lr catheter and we are going to observe the patient. I did speak to his daughter about the possibility of doing a cystoscopy. They would like to try to avoid procedures if we can, so we are going to observe him and then try to make the decision together. We will follow him with hemoglobin and hematocrit closely, serial , serial exams. We will also then make further recommendations. The possibility for cystoscopic evacuation of clots exists, except when there is diffuse bleeding it will be somewhat limited, most often in this setting the best thing is time with Plavix continue Plavix and give time. We could consider transfusion of platelets, the Plavix is considered, transfusion of FFP depending on what the next INR is, although it is a big jump from 1.2 to 1.5 to 2.7. We will see what the next numbers show. All of these were discussed at the length. I am going to plan to proceed. So, the plan is as follows; 1. Urinalysis, culture, cytology. 2. Followup labs. 3. Patient is advised cystoscopic evaluation. We will have to discuss this with them. Thank you for the urology consult. Migel Askew MD
[2017-07-10] MEDS ORDERED: Thrombin Topical 5,000 Int Units Spray Kit ONE ×2 (10:07→16:00)
[2017-07-10] MEDS: Mesalamine ER Cap 500 MG PO SCH ×2 (11:55→18:00)
[2017-07-10] MEDS: cefTRIAXone 1 gm 1 GM/100 ML BAG IVPB SCH (11:55)
--- NOTE | 2017-07-10 16:51 | PCM.URO ---
Urology Progress Note - Objective Lab Studies: Reviewed (plans: for now see to sd no gu intervention/ full note to be dictated) Lab Results Last 24 Hours: Laboratory Results - last 24 hr 07/09/17 11:10 Ferritin 23.2 Intake & Output: Intake & Output 07/09/17 07/10/17 07/10/17 18:59 06:59 18:59 Intake Total 120 Output Total 1750 Balance -1750 120 Intake: Oral 120 Output: Urine 1750 Urethral (See) 1750 Other: # Voids Urethral (See) 1 # Bowel Movements 0 Vital Signs: Vital Signs - 24 hr 07/09/17 07/10/17 07/10/17 18:14 07:30 11:56 Temperature 97.6 F Pulse Rate 90 78 78 Respiratory 18 Rate Blood Pressure 120/78 126/71 126/71 O2 Sat by Pulse 99 Oximetry
--- NOTE | 2017-07-10 19:17 | US ---
PROCEDURE: Ultrasound-guided right common femoral artery pseudoaneurysm thrombin injection HISTORY: Recent cardiac catheterization. Right common femoral artery pseudoaneurysm. Needs thrombin injection PHYSICIAN(S): Matt Grijalva MD. FINDINGS: The relative risks and indications of the procedure were explained to the patient and his daughter and consent obtained. Sonography of the right groin demonstrated a 2.5 cm pseudoaneurysm with a small neck arising from the right common femoral artery. The right groin was prepped and draped usual sterile fashion. 1 percent xylocaine was used to anesthetize the skin soft tissues. Under direct ultrasound guidance, 21 gauge needle was advanced into the patent pseudoaneurysm. 1500 units of thrombin was injected. The pseudoaneurysm thrombosed completely. The common femoral artery remains patent. IMPRESSION: 1. Ultrasound-guided right common femoral artery pseudoaneurysm thrombin injection
--- NOTE | 2017-07-11 03:51 | PN ---
DATE: 07/10/2017 UROLOGY PROGRESS NOTE See the previously dictated consultation note and daily progress note. SUBJECTIVE: The patient . His urine has cleared up nicely. We saw the patient on 07/08/2017. We gave him a voiding trial on 07/09/2017, he failed that. I inserted a Lr catheter, see the notes from yesterday. Today, the patient is resting comfortably. I discussed the options with the daughter. In fact, we are thinking of sending the patient home. I have discussed that we are between a rock and a hard place. We do not want really to provide anesthesia, and also, the patient does not want any anesthesia, the daughter does not want him to get any anesthesia, so doing a prostatectomy, TURP, or even anything minimal, even a TUIP, any procedure that would require anesthesia, they are not enthusiastic. I offered them the possibility for being discharged to home with a Lr catheter and then trying a microwave thermal therapy, at least this does not require anesthesia, does not require stopping anticoagulation for now. Again, I explained that it only helps to half of the people at most. But, it may show some benefit. Again, histologically, it is being just treated. And, we definitely achieved some good improvement. And, I discussed all these options with the patient. Now, with the plan. See below. REVIEW OF SYSTEMS: As listed above. PAST MEDICAL AND SURGICAL HISTORY: No other changes. This is a patient of Dr. Fuentes, Dr. Marie, and also I spoke To Dr. Marie and Dr Grijalva today, see the plans listed below. MEDICATIONS: Listed. PHYSICAL EXAMINATION: He still has the hematoma in the groin. The Lr catheter is now draining clear urine. Again, see the notes from 07/09/2017 where we reinserted Lr catheter. DIAGNOSES: 1. Urinary retention. 2. Hematuria. 3. Voiding dysfunction. 4. Multiple medical factors. SUMMARY: A very pleasant 87-year-old gentleman, where a little bit quiet here. I did discuss the possibility for a cysto, and he had a local cysto, I do not see any bleeding sites. There are no real lesions that are causing the bleeding. The bleeding is related to antiplatelet therapy and to Coumadin therapy. In this regard from Urology standpoint, again, now the urine is clear, that is a good news with Lr catheter in place, we are going to just keep the patient with that, and then he can start his anticoagulation. But if we are going to try to do something, I did discuss that the possibility for giving some anesthesia and trying even a GreenLight Laser TURP to decrease the risk of bleeding and then for any fluid change etc. is a good option. The option is doing nothing and just keeping a Lr catheter, and as a third option, something that is not available for the hospital, but available in the office, that is a microwave thermal therapy. I discussed all these options at length. At this point, Dr. Fuentes prefers that the patient stay in the hospital, and the patient is going to stay in the hospital. We talked further to Dr. Fuentes, and had a discussion with Sruthi, the patient's daughter and the patient directly. PLAN: So, the plan is as follows; 1. Maintain his current Lr. 2. Plus/minus on the anticoagulation and the antiplatelet medications. And then further plans, we will follow. Again from Urology standpoint, it would certainly be appropriate to do further diagnostic type studies. Again, what is available in the hospital versus what is available in the office, like a urodynamics and then the other thing is in terms of treatment options, doing a microwave thermal therapy versus doing nothing versus doing something as although minimally invasive, but something such as a GreenLight laser may make perfect sense. We will discuss this further. We will continue to follow the patient, but in the meantime, leave the Lr catheter. Migel Askew MD
--- NOTE | 2017-07-11 08:35 | DS ---
HISTORY OF PRESENT ILLNESS: This is an 87-year-old male who is coming into the hospital because of hematuria. The patient was found to have gross hematuria that without improving. The patient had his antiplatelet and anticoagulation on hold. The patient's hematuria has improved. The patient has no complaints of any headaches or dizziness. No nausea. He was able to ambulate today. PHYSICAL EXAMINATION: VITAL SIGNS: Temperature is 97.6, pulse is 78, blood pressure is 126/71, respirations are 18, and O2 saturation is 99%. GENERAL: The patient is lying in bed, flat, comfortable. HEENT: No oral lesion. Anicteric sclerae. Moist mucosa. NECK: No JVD, adenopathy, or thyromegaly. CARDIOVASCULAR: S1 and S2, regular. No murmurs, rubs, or gallops. LUNGS: Clear to auscultation bilaterally. No wheeze, rales, or rhonchi. ABDOMEN: Bowel sounds are positive, soft, nontender and nondistended. EXTREMITIES: No cyanosis, clubbing or edema. ASSESSMENT: 1. Gross hematuria, improved with see due to retention 2. Benign prostatic hypertrophy. 3. Aortic valve replacement, anticoagulation on hold. 4. Hypertension. 5. Coronary artery disease. PLAN: The patient is currently comfortable. The patient is on Pentasa. He is on finasteride. He is going to continue with Rocephin for antibiotics. The patient's blood cultures have been negative. The patient is possibly going for cystoscopy. I did speak to the patient's daughter at the bedside to give her an update. He is on a heart-healthy diet. He is eating well. His blood work is reviewed. Reji Marie MD [facility]
--- NOTE | 2017-07-11 08:46 | CP.PCM.PN ---
Subjective - Date & Time of Evaluation Date of Evaluation: 07/11/17 Time of Evaluation: 07:00 - Subjective Subjective: Stable on 5R. Urine clear. S/P thrombin inj right groin psa by Dr. Grijalva. No CP or SOB. I spoke with Dr. Grijalva yesterday. I spoke with Dr Askew today. I spoke with Ela at the bedside V/S noted. PE: Lungs: clear Cor.: S1S2 Abd.: soft Ext.: no edema Neuro.: alert Urine clear. I/O= 640 250 recorded BC x2 NG at 5 days Objective - Vital Signs/Intake and Output Vital Signs (last 24 hours): Temp Pulse Resp BP Pulse Ox 98.7 F 78 18 124/69 98 07/10/17 16:00 07/10/17 16:00 07/10/17 16:00 07/10/17 16:00 07/10/17 16:00 Intake and Output: 07/11/17 07/11/17 06:59 18:59 Intake Total 640 Output Total 850 Balance -210 - Medications Medications: Current Medications Atorvastatin Calcium (Lipitor) 20 mg PO HS [facility] Last Admin: 07/10/17 21:35 Dose: 20 mg Carvedilol (Coreg) 3.125 mg PO BID [facility] Last Admin: 07/10/17 11:56 Dose: 3.125 mg Finasteride (Proscar) 5 mg PO DAILY [facility] Last Admin: 07/10/17 11:56 Dose: 5 mg Ceftriaxone Sodium (Rocephin 1 Gram Ivpb) 1 gm in 100 mls @ 100 mls/hr IVPB DAILY [facility] PRN Reason: Protocol Last Admin: 07/10/17 11:55 Dose: 100 mls/hr Mesalamine (Pentasa) 1,500 mg PO BID [facility] Last Admin: 07/10/17 11:55 Dose: 1,500 mg - Labs Labs: 07/09/17 06:30 07/09/17 06:30 PT 19.3 SECONDS (9.4-12.5) H 07/09/17 06:30 INR 1.66 (0.93-1.08) H 07/09/17 06:30 APTT 30.0 Seconds (25.1-36.5) 07/09/17 06:30 Assessment and Plan - Assessment and Plan (Free Text) Assessment: Gross Hematuria while on warfarin, ASA, Plavix BPH/Urinary Retention/Bleeding CAD/Remote CABG/AVR/Recent PCI SVBG to LAD/Diag. 06/16/18 Remote UT Delerium following the recent PCI possible due to Fentanyl/Versed with very slow return to normal mental status Chronic A/C for AVR (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 As per Dr. Askew: Laser Prostate procedure later today or tomorrow Resume Plavix, warfarin LENY Will follow closely.
--- NOTE | 2017-07-11 09:20 | PN ---
SUBJECTIVE: The patient has no complaints of chest pain or shortness of breath. He feels well. He is ambulating. He is scheduled for . PHYSICAL EXAMINATION VITAL SIGNS: Temperature is 98.7, pulse is 78, blood pressure is 124/68. GENERAL: The patient is lying in bed, flat, comfortable. HEENT: No oral lesion. Anicteric sclerae. Moist mucosa. NECK: No JVD, adenopathy, or thyromegaly. CARDIOVASCULAR: S1 and S2, regular. No murmurs, rubs, or gallops. LUNGS: Clear to auscultation bilaterally. No wheeze, rales, or rhonchi. ABDOMEN: Bowel sounds are positive, soft, nontender and nondistended. EXTREMITIES: no cyanosis, clubbing or edema. LABS: White cell count of 8.5, hemoglobin . ASSESSMENT: 1. Gross hematuria. 2. Right femoral pseudoaneurysm. 3. Benign prostatic hypertrophy. 4. Aortic valve replacement, anticoagulation is on hold. 5. Hypertension . PLAN: The patient is currently comfortable, thrombin injection in the right common femoral artery for the pseudoaneurysm. His hemoglobin is stable. He has blood cultures negative . The patient is on Lipitor for dyslipidemia valve replacement. The patient also had . We will await for the . Reji Marie MD
[2017-07-11 10:10] VITALS: BP 148/86; PULSE 82; RESP 20; TEMP 98.3; O2SAT 99
[2017-07-11] MEDS: Mesalamine ER Cap 500 MG PO SCH (10:47)
--- NOTE | 2017-07-11 11:16 | PN ---
DATE: SUBJECTIVE: The patient has no complaints of any chest pain, shortness of breath, headaches or dizziness. PHYSICAL EXAMINATION: VITAL SIGNS: Temperature is 98.7, pulse is 78, blood pressure is 124/69, and respirations are 18. GENERAL: The patient is lying in bed, flat, comfortable. HEENT: No oral lesion. Anicteric sclerae. Moist mucosa. NECK: No JVD, adenopathy, or thyromegaly. CARDIOVASCULAR: S1 and S2, regular. No murmurs, rubs, or gallops. LUNGS: Clear to auscultation bilaterally. No wheeze, rales, or rhonchi. ABDOMEN: Bowel sounds are positive, soft, nontender and nondistended. EXTREMITIES: No cyanosis, clubbing or edema. LABORATORY DATA: White count of 8.5 and hemoglobin of 8.8. Creatinine is 0.8. ASSESSMENT: 1. Gross hematuria, improved. 2. Benign prostatic hyperplasia. 3. Aortic valve replacement on anticoagulation, but I put on hold. 4. Hypertension. 5. Coronary artery disease. PLAN: The patient is currently comfortable. The patient is on Pentasa. He is on finasteride. He is going to continue with Rocephin for antibiotics. The patient's blood cultures have been negative. I will discontinue the patient's IV antibiotics. The patient is possibly going for cystoscopy. I did speak to the patient's daughter at the bedside to give her an update. He is on a heart-healthy diet. He is eating well. His blood work is reviewed. Reji Marie MD
--- NOTE | 2017-07-11 13:33 | US ---
PROCEDURE: Duplex arterial ultrasound of the right groin. HISTORY: Status post right common femoral artery pseudoaneurysm thrombin injection. Evaluate for recanalization PHYSICIAN(S): Matt Grijalva MD. FINDINGS: The right common femoral artery pseudoaneurysm remains thrombosed. A 2.9 cm lobulated hematoma is present. The visualized segments of the right common femoral artery are patent with a triphasic waveform. No obvious venous thrombus is seen. IMPRESSION: 1. Thrombosed right common femoral artery pseudoaneurysm post thrombin Injection. No evidence of recanalization.
== END 2017-07-11 13:55 | disposition home or self-care (01) | DRG 729 ==
LOC: ED 21:55 → ERH 07-06 02:03 → 2A 07-06 06:05 → OBSVTOIN 07-07 10:56 → 5RNO 07-08 00:49
PROVIDERS: ADMIT Internal Medicine Nephrology; ATTEND Internal Medicine Nephrology
PROC: 3E053GC Introduction of Other Therapeutic Substance into Peripheral Artery, Percutaneous Approach (ICD-10-PCS; principal; 2017-07-10)
DX: N42.1 Congestion and hemorrhage of prostate (principal); K50.90 Crohn's disease, unspecified, without complications; T83.091A Other mechanical complication of indwelling urethral catheter, initial encounter; I72.4 Aneurysm of artery of lower extremity; E11.9 Type 2 diabetes mellitus without complications; N40.1 Benign prostatic hyperplasia with lower urinary tract symptoms; R33.8 Other retention of urine; E78.5 Hyperlipidemia, unspecified; I10 Essential (primary) hypertension; I25.10 Atherosclerotic heart disease of native coronary artery without angina pectoris; M81.0 Age-related osteoporosis without current pathological fracture; Y84.6 Urinary catheterization as the cause of abnormal reaction of the patient, or of later complication, without mention of misadventure at the time of the procedure; I25.2 Old myocardial infarction; Z95.2 Presence of prosthetic heart valve; Z95.1 Presence of aortocoronary bypass graft; Z95.5 Presence of coronary angioplasty implant and graft; Z79.01 Long term (current) use of anticoagulants; Z79.82 Long term (current) use of aspirin; Z79.02 Long term (current) use of antithrombotics/antiplatelets; Z86.73 Personal history of transient ischemic attack (TIA), and cerebral infarction without residual deficits

== ENCOUNTER 2017-08-24 03:53 | Emergency (ER) | payer MEDICARE, OTHER ==
[2017-08-24 04:01] VITALS: BMI 25.4
--- NOTE | 2017-08-24 04:06 | ED PDOC ---
Arrival/HPI - General Time Seen by Provider: 08/24/17 03:55 Historian: Patient, Family - History of Present Illness Narrative History of Present Illness (Text): 08/24/17 04:06 Donnie Salmeron is an 87 year old male, whose past medical history includes BPH, CABG s/p [place], CAD with coronary stents, hypertension, ascending thoracic aneurysm repair, AV valve replacement, Crohn's disease, and dyslipidemia, who presents to the Emergency department accompanied by family complaining of hematuria. Patient recently had a Lr catheter removed yesterday and began experiencing hematuria tonight. Patient denies any fever, chills, chest pain, shortness of breath, nausea, vomiting, diarrhea, back pain, neck pain, headache , dizziness, or any other complaints. PMD: Dr. Marie Urologist: Dr. Askew Time/Duration: Other (tonight) Symptom Onset: Gradual Symptom Course: Unchanged Activities at Onset: Light Context: Home Past Medical History - Provider Review Nursing Documentation Reviewed: Yes - Infectious Disease Hx of Infectious Diseases: None - Cardiac Hx Cardiac Disorders: Yes - Pulmonary Hx Pneumonia: Yes - Neurological HX Cerebrovascular Accident: Yes (TIA's) - HEENT Hx Cataracts: Yes (b/l removed) - Renal Hx Renal Disorder: No - Endocrine/Metabolic Hx Diabetes Mellitus Type 2: Yes - Hematological/Oncological Hx Blood Disorders: No - Integumentary Hx Dermatological Disorder: No - Musculoskeletal/Rheumatological Hx Falls: No - Gastrointestinal Hx Crohn's Disease: Yes - Genitourinary/Gynecological Hx Prostate Problems: Yes (enlarged) Hx Urinary Tract Infection: Yes (3 UTI) - Psychiatric Hx Emotional Abuse: No Hx Physical Abuse: No Hx Substance Use: No - Surgical History Hx Appendectomy: Yes Hx Cardiac Catheterization: Yes Hx Coronary Stent: Yes (2) Hx Musculoskeletal Surgery: Yes (back) Hx Open Heart Surgery: Yes (CAB) Hx Orthopedic Surgery: Yes (back) Hx Valve Replacement: Yes (aortic valve: St . Se) - Anesthesia Hx Anesthesia Reactions: No Hx Malignant Hyperthermia: No - Suicidal Assessment Feels Threatened In Home Enviroment: No Family/Social History - Physician Review Nursing Documentation Reviewed: Yes Family/Social History: Unknown Family HX Smoking Status: Never Smoked Hx Alcohol Use: No Hx Substance Use: No Hx Substance Use Treatment: No Allergies/Home Meds Allergies/Adverse Reactions: Allergies pneumococcal vaccine Allergy (Severe, Verified 08/24/17 04:08) RASH Anesthetics - Alejandra Type- Parabens Adverse Reaction (Verified 08/24/17 04:08) ANAPHYLAXIS Home Medications: Home Meds Medication Instructions Recorded Confirmed Mesalamine [Pentasa] 1,500 mg PO BID 09/02/15 07/05/17 Simvastatin [Zocor] 40 mg PO DAILY 11/09/15 07/05/17 Warfarin [Coumadin] 4 mg PO DAILY 11/09/15 07/05/17 metFORMIN [glucOPHAGE] 500 mg PO TID 03/01/16 07/05/17 Review of Systems - Physician Review All systems were reviewed & negative as marked: Yes - Review of Systems Constitutional: Normal. absent: Fevers Eyes: Normal ENT: Normal Respiratory: Normal. absent: SOB, Cough Cardiovascular: Normal. absent: Chest Pain Gastrointestinal: Normal. absent: Abdominal Pain, Diarrhea, Nausea, Vomiting Genitourinary Male: absent: Dysuria, Frequency Musculoskeletal: Normal. absent: Back Pain, Neck Pain Skin: Normal. absent: Rash Neurological: Normal. absent: Headache, Dizziness Endocrine: Normal Hemo/Lymphatic: Normal Psychiatric: Normal Physical Exam Vital Signs Reviewed: Yes Vital Signs Temp Pulse Resp BP Pulse Ox 08/24/17 04:06 97.5 F L 101 H 20 150/81 98 Temperature: Afebrile Blood Pressure: Normal Pulse: Regular Respiratory Rate: Normal Appearance: Positive for: Well-Appearing, Non-Toxic, Comfortable Pain Distress: None Mental Status: Positive for: Alert and Oriented X 3 - Systems Exam Head: Present: Atraumatic, Normocephalic Pupils: Present: PERRL Extroacular Muscles: Present: EOMI Conjunctiva: Present: Normal Mouth: Present: Moist Mucous Membranes Neck: Present: Normal Range of Motion Respiratory/Chest: Present: Clear to Auscultation, Good Air Exchange. No: Respiratory Distress, Accessory Muscle Use Cardiovascular: Present: Regular Rate and Rhythm, Normal S1, S2. No: Murmurs Abdomen: Present: Normal Bowel Sounds. No: Tenderness, Distention, Peritoneal Signs Back: Present: Normal Inspection Upper Extremity: Present: Normal Inspection. No: Cyanosis, Edema Lower Extremity: Present: Normal Inspection. No: Edema Neurological: Present: GCS=15, CN II-XII Intact, Speech Normal Skin: Present: Warm, Dry, Normal Color. No: Rashes Psychiatric: Present: Alert, Oriented x 3, Normal Insight, Normal Concentration Medical Decision Making ED Course and Treatment: 08/24/17 04:06 Impression: 87 year old male presents complaining of hematuria tonight following Lr catheter removal yesterday. Plan: -- Bladder scan -- Labs -- UA -- Reassess and disposition Prior Visits: Notes and results from previous visits were reviewed. On 07/05/2017, pt was seen in the Emergency department for clogged indwelling Lr catheter and hematuria. Pt was admitted to the hospital for further evaluation. Progress Notes: 08/24/17 04:19 Bladder scan performed by RN. 405cc of urine detected in bladder. - Lab Interpretations Lab Results: 08/24/17 04:35 08/24/17 04:35 Lab Results 08/24/17 04:54: Urine Color Dark red, Urine Appearance Turbid, Urine pH 6.0, Ur Specific [place] 1.025, Urine Protein >=300 H, Urine Glucose (UA) Negative, Urine Ketones Negative, Urine Blood Large H, Urine Nitrate Negative, Urine Bilirubin Negative, Urine Urobilinogen 0.2, Ur Leukocyte Esterase Small H, Urine RBC Tntc, Urine WBC 15 - 20, Ur Epithelial Cells 0 - 2, Urine Bacteria Few 08/24/17 04:35: Sodium 138, Potassium 4.1, Chloride 104, Carbon Dioxide 21, Anion Gap 17, BUN 25 H, Creatinine 0.9, Est GFR ( Amer) > 60, Est GFR ( Non-Af Amer) > 60, Random Glucose 156 H, Calcium 10.3, Total Bilirubin 0.7, AST 39, ALT 34, Alkaline Phosphatase 81, Total Protein 7.8, Albumin 4.1, Globulin 3.8, Albumin/Globulin Ratio 1.1 08/24/17 04:35: PT 28.8 H, INR 2.48 H, APTT 37.0 H 08/24/17 04:35: WBC 14.4 H D, RBC 4.39, Hgb 13.1 L D, Hct 39.0 L, MCV 88.8, MCH 29.8, MCHC 33.6, RDW 15.4 H, Plt Count 262, MPV 9.8, Gran % 79.5 H, Lymph % ( Auto) 10.7 L, [place] % (Auto) 8.4 H, Eos % (Auto) 1.2 L, Baso % (Auto) 0.2, Gran # 11.46 H, Lymph # (Auto) 1.6, [place] # (Auto) 1.2 H, Eos # (Auto) 0.2, Baso # ( Auto) 0.03 I have reviewed the lab results: Yes - Medication Orders Current Medication Orders: Discontinued Medications Cephalexin Monohydrate (Keflex) 500 mg PO STAT STA PRN Reason: Protocol Stop: 08/24/17 06:24 Last Admin: 08/24/17 06:28 Dose: 500 mg - Scribe Statement The provider has reviewed the documentation as recorded by the Scribamanda Westfall All medical record entries made by the Mauricioibamanda were at my direction and personally dictated by me. I have reviewed the chart and agree that the record accurately reflects my personal performance of the history, physical exam, medical decision making, and the department course for this patient. I have also personally directed, reviewed, and agree with the discharge instructions and disposition. Disposition/Present on Arrival - Present on Arrival Any Indicators Present on Arrival: No History of DVT/PE: No History of Uncontrolled Diabetes: No Urinary Catheter: Yes (gross hematuria) History Surgical Site Infection Following: None - Disposition Have Diagnosis and Disposition been Completed?: Yes Diagnosis: Urinary retention Disposition: HOME/ ROUTINE Disposition Time: 06:00 Condition: GOOD Discharge Instructions (ExitCare): Lr Catheter, Male, Urinary Retention Additional Instructions: follow up with dr malin today Prescriptions: Cephalexin [Keflex] 500 mg PO BID #14 capsule Forms: [employer] ([place])
[2017-08-24 04:07] VITALS: BP 150/81; PULSE 101; RESP 20; TEMP 97.5; O2SAT 98
[2017-08-24 04:53] LABS: BASO # 0.03 K/mm3 (0.0-2.0); BASO % 0.2 % (0.0-3.0); EOS # 0.2 (0.0-0.7); EOS % 1.2 % (1.5-5.0); GRAN # 11.46 (1.4-6.5); GRAN % 79.5 % (50.0-68.0); LYMPH # 1.6 (1.2-3.4); LYMPH % 10.7 % (22.0-35.0); MEAN CELL VOLUME 88.8 fl (80.0-105.0); MEAN CORPUSCULAR HEMOGLOBIN 29.8 pg (25.0-35.0); MEAN CORPUSCULAR HGB CONC 33.6 g/dl (31.0-37.0); MEAN PLATELET VOLUME 9.8 fl (7.0-11.0); MONO # 1.2 (0.1-0.6); MONO % 8.4 % (1.0-6.0); RBC 4.39 10^6/uL (3.5-6.1); RED CELL DISTRIBUTION WIDTH 15.4 % (11.5-14.5); WHITE BLOOD COUNT 14.4 10^3/ul (4.5-11.0)
[2017-08-24 04:56] LABS: ALB/GLOB RATIO 1.1 (1.1-1.8); ALBUMIN 4.1 g/dL (3.0-4.8); ALT/SGPT 34 U/L (7-56); AST/SGOT 39 U/L (17-59); BLOOD UREA NITROGEN 25 mg/dL (7-21); CALCIUM 10.3 mg/dL (8.4-10.5); GFR AFRICAN-AMERICAN > 60; GFR NON-AFRICAN AMERICAN > 60
[2017-08-24 04:57] LABS: HEMOGLOBIN 13.1 g/dL (14.0-18.0)
[2017-08-24 05:00] LABS: INR 2.48 (0.93-1.08); PROTHROMBIN TIME 28.8 SECONDS (9.4-12.5)
[2017-08-24 05:19] LABS: URINE BILIRUBIN NEGATIVE (NEGATIVE); URINE BLOOD LARGE (NEGATIVE); URINE GLUCOSE (UA) NEGATIVE (NEGATIVE); URINE LEUKOCYTE ESTERASE SMALL Leu/uL (NEGATIVE); URINE NITRATE NEGATIVE (NEGATIVE); URINE PROTEIN >=300 mg/dL (<30 mg/dL); URINE UROBILINOGEN 0.2 E.U./dL (<1 E.U./dL)
[2017-08-24 05:25] LABS: URINE APPEARANCE TURBID (CLEAR); URINE COLOR DARK RED (YELLOW)
[2017-08-24 05:27] LABS: URINE BACTERIA FEW (NEG); URINE EPITHELIAL CELLS 0 - 2 /hpf (0-5); URINE RBC TNTC /hpf (0-2); URINE WBC 15 - 20 /hpf (0-6)
== END 2017-08-24 06:32 | disposition home or self-care (01) ==
LOC: ED 03:53
DX: N40.1 Benign prostatic hyperplasia with lower urinary tract symptoms (principal); R33.8 Other retention of urine; I10 Essential (primary) hypertension; E78.5 Hyperlipidemia, unspecified; I25.10 Atherosclerotic heart disease of native coronary artery without angina pectoris; I25.2 Old myocardial infarction

== ENCOUNTER 2018-06-25 19:49 | Observation (INO) | payer MEDICARE, OTHER ==
[2018-06-25 19:49] VITALS: BMI 25.4
--- NOTE | 2018-06-25 20:27 | ED PDOC ---
Arrival/HPI - General Chief Complaint: Medical Clearance Time Seen by Provider: 06/25/18 20:02 Historian: Patient - History of Present Illness Narrative History of Present Illness (Text): 06/25/18 20:15 88 year old male, whose past medical history includes hx of TIA, BPH, CABG s/p [place], CAD with coronary stents, hypertension, ascending thoracic aneurysm repair, AV valve replacement, Crohn's disease, and dyslipidemia, presents to the emergency department for evaluation following transient period of confusion at home earlier this evening. According to family, patient appeared confused and not making any sense when talking. Patient had no history of any weakness. He states he feels fine and does not recall anything happening to him. Patient denies any fever, chills, chest pain, shortness of breath, nausea, vomiting, diarrhea, urinary symptoms, back pain, neck pain, headache, dizziness, or any other complaints. PMD: Dr. Marie Urologist: Dr. Askew Time/Duration: Other (earlier this evening) Symptom Onset: Sudden Symptom Course: Resolved Activities at Onset: Light Context: Home Past Medical History - Provider Review Nursing Documentation Reviewed: Yes - Infectious Disease Hx of Infectious Diseases: None - Cardiac Hx Cardiac Disorders: Yes - Pulmonary Hx Pneumonia: Yes - Neurological HX Cerebrovascular Accident: Yes (TIA's) - HEENT Hx Cataracts: Yes (b/l removed) - Renal Hx Renal Disorder: No - Endocrine/Metabolic Hx Diabetes Mellitus Type 2: Yes - Hematological/Oncological Hx Blood Disorders: No - Integumentary Hx Dermatological Disorder: No - Musculoskeletal/Rheumatological Hx Falls: No - Gastrointestinal Hx Crohn's Disease: Yes - Genitourinary/Gynecological Hx Prostate Problems: Yes (enlarged) Hx Urinary Tract Infection: Yes (3 UTI) - Psychiatric Hx Emotional Abuse: No Hx Physical Abuse: No Hx Substance Use: No - Surgical History Hx Appendectomy: Yes Hx Cardiac Catheterization: Yes Hx Coronary Stent: Yes (2) Hx Musculoskeletal Surgery: Yes (back) Hx Open Heart Surgery: Yes (CAB) Hx Orthopedic Surgery: Yes (back) Hx Valve Replacement: Yes (aortic valve: St . Se) - Anesthesia Hx Anesthesia Reactions: No Hx Malignant Hyperthermia: No - Suicidal Assessment Feels Threatened In Home Enviroment: No Family/Social History - Physician Review Nursing Documentation Reviewed: Yes Family/Social History: No Known Family HX Smoking Status: Never Smoked Hx Alcohol Use: No Hx Substance Use: No Hx Substance Use Treatment: No Allergies/Home Meds Allergies/Adverse Reactions: Allergies pneumococcal vaccine Allergy (Severe, Verified 08/24/17 04:08) RASH Anesthetics - Alejandra Type- Parabens Adverse Reaction (Verified 08/24/17 04:08) ANAPHYLAXIS Home Medications: Home Meds Medication Instructions Recorded Confirmed Mesalamine [Pentasa] 1,500 mg PO BID 09/02/15 07/05/17 Simvastatin [Zocor] 40 mg PO DAILY 11/09/15 07/05/17 Warfarin [Coumadin] 4 mg PO DAILY 11/09/15 07/05/17 metFORMIN [glucOPHAGE] 500 mg PO TID 03/01/16 07/05/17 Review of Systems - Physician Review All systems were reviewed & negative as marked: Yes - Review of Systems Constitutional: absent: Fevers, Other (Chills) Respiratory: absent: SOB Cardiovascular: absent: Chest Pain Gastrointestinal: absent: Diarrhea, Nausea, Vomiting Genitourinary Male: absent: Dysuria, Frequency, Hematuria Musculoskeletal: absent: Back Pain, Neck Pain Neurological: absent: Headache, Dizziness, Focal Weakness Physical Exam Vital Signs Reviewed: Yes Vital Signs Temp Pulse Resp BP Pulse Ox 06/25/18 20:17 98.3 F 73 18 173/86 H 97 Temperature: Afebrile Blood Pressure: Hypertensive Pulse: Regular Respiratory Rate: Normal Appearance: Positive for: Well-Appearing, Non-Toxic, Comfortable Pain Distress: None Mental Status: Positive for: Alert and Oriented X 3 - Systems Exam Head: Present: Atraumatic, Normocephalic Pupils: Present: PERRL Extroacular Muscles: Present: EOMI Conjunctiva: Present: Normal Mouth: Present: Moist Mucous Membranes Neck: Present: Normal Range of Motion Respiratory/Chest: Present: Clear to Auscultation, Good Air Exchange. No: Respiratory Distress, Accessory Muscle Use Cardiovascular: Present: Regular Rate and Rhythm, Normal S1, S2. No: Murmurs Abdomen: No: Tenderness, Distention, Peritoneal Signs Back: Present: Normal Inspection Upper Extremity: Present: Normal Inspection. No: Cyanosis, Edema Lower Extremity: Present: Normal Inspection. No: Edema Neurological: Present: GCS=15, CN II-XII Intact, Speech Normal, Motor Func Grossly Intact, Normal Sensory Function, Normal Cerebellar Funct, Norm Deep Tendon Reflexes, Gait Normal, Other (no focal or sensory defects) Skin: Present: Warm, Dry, Normal Color. No: Rashes Psychiatric: Present: Alert, Oriented x 3, Normal Insight, Normal Concentration Medical Decision Making ED Course and Treatment: 06/25/18 20:15 Impression: 88 year old male presents for evaluation follow transient period of confusion at home earlier this evening. Patient currently states he feels fine. Patient is A&Ox3. Plan: -- CT Head w/o contrast -- EKG -- Labs -- Chest X-ray -- Reassess and disposition Prior Visits: Notes and results from previous visits were reviewed. Progress Notes: 06/25/18 20:45 EKG shows NSR at 83 BPM with infarct. Nonspecific ST/T wave changes. Interpreted by me. 06/25/18 21:26 CXR Impression: As read by me, no acute process. 06/25/18 21:[address] Marie who is aware and agrees with the plan. Accepts patient into his service. Patient will be admitted to same day surgery center. 06/25/18 22:09 EXAM: CT Head without Intravenous Contrast. Electronically signed on Jun 25, 2018 9:58:40 PM EST by: Barrera Simmons M.D., IMPRESSION: 1. There is generalized parenchymal atrophy noted as demonstrated by symmetrical dilatation of ventricles and sulci. 2. Chronic periventricular and subcortical microvascular disease is seen. 3. Encephalomalacia involving right parietal lobe, compatible with an old infarct. 4. No acute intracranial pathology. - Lab Interpretations I have reviewed the lab results: Yes - RAD Interpretation Radiology Orders: 06/25/18 20:04 HEAD W/O CONTRAST [CT] Stat 06/25/18 20:05 CHEST PORTABLE [RAD] Stat Regional Economist: ED Physician, Radiologist - EKG Interpretation Interpreted by ED Physician: Yes Type: 12 lead EKG NIHSS Scale ([place]) Time Performed: 20:00 - How Severe is the [place] Baseline Level of Consciousness: 0=Alert LOC to Questions: 0=Both comments correct LOC to commands: 0=Obeys both correctly Best Gaze: 0=Normal Visual: 0=No visual loss Facial: 0=Normal Motor Arm - Left: 0=No drift Motor Arm - Right: 0=No drift Motor Leg - Left: 0=No drift Motor Leg - Right: 0=No drift Limb Ataxia: 0=Absent Sensory: 0=Normal Best Language: 0=No aphasia Dysarthia: 0=Normal articulation Extinction & Inattention (Neglect): 0=Normal, no object Score: 0 Risk Level: No Stroke Risk - Scribe Statement The provider has reviewed the documentation as recorded by the Yosvany Mejia Provider Scribe Attestation: All medical record entries made by the Mauricioibamanda were at my direction and personally dictated by me. I have reviewed the chart and agree that the record accurately reflects my personal performance of the history, physical exam, medical decision making, and the department course for this patient. I have also personally directed, reviewed, and agree with the discharge instructions and disposition. Disposition/Present on Arrival - Present on Arrival Any Indicators Present on Arrival: No History of DVT/PE: No History of Uncontrolled Diabetes: No Urinary Catheter: Yes (gross hematuria) History of Decub. Ulcer: No History Surgical Site Infection Following: None - Disposition Have Diagnosis and Disposition been Completed?: Yes Diagnosis: Altered mental status Disposition: HOSPITALIZED Disposition Time: 22:29 Patient Plan: Observation Condition: STABLE Referrals: Alejandrina OSBORNE,José Miguel Narvaez MD [Primary Care Provider] - Follow up with primary Forms: [employer] (Lao)
[2018-06-25 20:49] LABS: HEMOGLOBIN 14.3 g/dL (14.0-18.0); MEAN CELL VOLUME 92.8 fl (80.0-105.0); MEAN CORPUSCULAR HEMOGLOBIN 30.4 pg (25.0-35.0); MEAN CORPUSCULAR HGB CONC 32.8 g/dl (31.0-37.0); MEAN PLATELET VOLUME 9.4 fl (7.0-11.0); RBC 4.7 10^6/uL (3.5-6.1); RED CELL DISTRIBUTION WIDTH 13.8 % (11.5-14.5); WHITE BLOOD COUNT 11.3 10^3/uL (4.5-11.0)
[2018-06-25 20:59] LABS: ALB/GLOB RATIO 1.1 (1.1-1.8); ALBUMIN 4.4 g/dL (3.0-4.8); ALT/SGPT 22 U/L (7-56); AST/SGOT 37 U/L (17-59); BLOOD UREA NITROGEN 21 mg/dL (7-21); CALCIUM 9.3 mg/dL (8.4-10.5); GFR NON-AFRICAN AMERICAN > 60
[2018-06-25 21:06] LABS: INR 2.95; PARTIAL THROMBOPLASTIN TIME 38.6 Seconds (25.1-36.5); PROTHROMBIN TIME 34.4 SECONDS (9.4-12.5)
[2018-06-25 21:11] LABS: TROPONIN I < 0.01 ng/mL
[2018-06-25 23:22] LABS: URINE APPEARANCE CLEAR (CLEAR); URINE BILIRUBIN NEGATIVE (NEGATIVE); URINE BLOOD TRACE-INTACT (NEGATIVE); URINE COLOR LIGHT YELLOW (YELLOW); URINE GLUCOSE (UA) NEGATIVE (NEGATIVE); URINE LEUKOCYTE ESTERASE NEGATIVE Leu/uL (NEGATIVE); URINE PROTEIN NEGATIVE mg/dL (<30 mg/dL); URINE UROBILINOGEN 0.2 E.U./dL (<1 E.U./dL)
[2018-06-25 23:24] LABS: URINE WBC 0 - 2 /hpf (0-6)
[2018-06-26 02:03] VITALS: RESP 20
[2018-06-26 08:51] VITALS: TEMP 98.2; O2SAT 96
[2018-06-26] MEDS ORDERED: Mesalamine ER Cap 500 MG PO SCH (10:00)
--- NOTE | 2018-06-26 10:11 | RAD ---
Date of service: 06/25/2018 HISTORY: ams COMPARISON: Chest radiograph dated 06/22/2017. FINDINGS: LUNGS: Left midlung scarring. No focal consolidation. PLEURA: No significant pleural effusion identified, no pneumothorax apparent. CARDIOVASCULAR: Prior sternotomy with sternal wires and surgical clips in place. Atherosclerotic aortic calcifications. Cardiomediastinal silhouette stably enlarged. OSSEOUS STRUCTURES: Unchanged. VISUALIZED UPPER ABDOMEN: Normal. OTHER FINDINGS: None. IMPRESSION: No active disease.
--- NOTE | 2018-06-26 10:15 | CT ---
Date of service: 06/25/2018 PROCEDURE: CT HEAD WITHOUT CONTRAST. HISTORY: confused COMPARISON: CT head dated 06/21/2017. TECHNIQUE: Axial computed tomography images were obtained through the head/brain without intravenous contrast. Radiation dose: Total exam DLP = 1048.3 mGy-cm. This CT exam was performed using one or more of the following dose reduction techniques: Automated exposure control, adjustment of the mA and/or kV according to patient size, and/or use of iterative reconstruction technique. FINDINGS: HEMORRHAGE: No intracranial hemorrhage. BRAIN: No mass effect or edema. Atrophy. Chronic microvascular ischemic changes. Right temporoparietal encephalomalacia. VENTRICLES: Unremarkable. No hydrocephalus. CALVARIUM: Unremarkable. PARANASAL SINUSES: Unremarkable as visualized. No significant inflammatory changes. MASTOID AIR CELLS: Unremarkable as visualized. No inflammatory changes. OTHER FINDINGS: None. IMPRESSION: No acute intracranial pathology. Right temporoparietal encephalomalacia redemonstrated. Age-related changes. No significant interval change.
--- NOTE | 2018-06-26 10:38 | CARD ---
APPROVED REPORT Date of service: 06/25/2018 EKG Measurement Heart [id number] <Conclusion> Normal sinus rhythm Low voltage QRS Cannot rule out Anteroseptal infarct, age undetermined T wave abnormality, consider lateral ischemia Abnormal ECG
[2018-06-26 10:39] VITALS: BP 101/55; PULSE 75
--- NOTE | 2018-06-26 13:22 | HP ---
DATE OF EXAM: 06/26/2018 CHIEF COMPLAINT AND HISTORY OF PRESENT ILLNESS: This is an 88-year-old male who is coming to the hospital because of episode of confusion. The patient's daughter at the bedside was able to give most of the history. The patient had become confused. Usually, he can have an episode confusion for less than 5 minutes and improves, but he was not improving, so he was worried. The patient had an episode yesterday that was lasting more than 5 minutes and the patient's family was concerned so the patient was brought in for further evaluation. This morning the patient feels well. No complaint of any chest pain or shortness of breath. No headaches or dizziness. No nausea or vomiting. The patient had no focal deficits yesterday. The patient does have a history of TIA and has been on anticoagulation for atrial fibrillation. The patient according to the ER doctor I spoke to had confusion yesterday. This morning he is awake and alert. He has no complaints. He is asking about going home. REVIEW OF SYSTEMS: All other review of systems are within normal limits except what is mentioned. ALLERGIES: PNEUMOCOCCAL VACCINE AND ANESTHETICS. PAST MEDICAL HISTORY: 1. Coronary artery disease status post CABG. 2. Dyslipidemia. 3. Hypertension. 4. BPH. 5. Crohn's disease. 6. Aortic valve replacement on Coumadin. 7. Small bowel obstruction. PAST SURGICAL HISTORY: 1. CABG. 2. Aortic valve replacement. 3. Thyroidectomy. 4. Spinal surgery. FAMILY HISTORY: Noncontributory. SOCIAL HISTORY: He does not smoke, drink or use drugs. PHYSICAL EXAMINATION: VITAL SIGNS: Temperature is 97.1, pulse of 95, blood pressure is 126/77, respirations 20 and O2 saturation 97%. Height is 5 feet 4 inches, weight is 165 pounds and BMI is 28.3. GENERAL: The patient is lying in bed, comfortable, and in no acute distress. HEENT: Atraumatic and normocephalic. Anicteric sclerae. Moist mucosa. [place] conjunctivae. No oral lesions. NECK: No JVD, anterior and posterior adenopathy, thyromegaly, or bruits. CARDIOVASCULAR: S1 and S2 irregular. No murmurs, rubs or gallops. LUNGS: Clear to auscultation bilaterally. No wheezes, rales, or rhonchi. ABDOMEN: Bowel sounds are positive. Soft, nontender and nondistended. No hepatosplenomegaly. No rebound and no guarding. EXTREMITIES: No cyanosis, clubbing, or edema. NEUROLOGIC: No facial asymmetry. Tongue is midline. No uvula deviation. Power is 5/5 upper extremities and lower extremities. Sensation intact in upper extremities and lower extremities. PSYCHIATRIC: She is awake, alert and oriented x3. No anxiety or depression. She has normal affect. GENITOURINARY: No CVA tenderness. VASCULAR: 2+ pulses in the carotid pulses and pedal pulses. SKIN: No erythema or nodules SPINE: Shows normal curvature. LABORATORY DATA: White count of 11.3, hemoglobin is 14.3 and platelet count is 250. He had INR that was therapeutic at 2.95. Chemistry shows a sodium 139, potassium 4.8 and creatinine is 1.0. Troponin 0.01. Albumin is 4.4. Urine done shows protein is negative, glucose is negative and ketones are negative. RBC is 1 to 3. Chest x-ray done shows no infiltrates, cardiomegaly. EKG shows sinus rhythm with a rate of 83. There is no ST-T changes. ASSESSMENT: 1. Delirium, improved. 2. Aortic valve replacement on anticoagulation with Coumadin. 3. Hypertension. 4. Dyslipidemia. 5. Coronary artery disease. 6. Benign prostatic hyperplasia. 7. Crohn's disease, stable. 8. CT of the head shows general parenchymal atrophy, there is encephalomalacia in the right parietal lobe compatible with an old infarct. PLAN: The patient is currently comfortable. The patient is going to continue with the carvedilol. The patient is on metformin for his diabetes. The patient is receiving mesalamine for his Crohn's, this will be continued. The patient on Plavix. He will continue with Proscar for his BPH. I did speak to the patient's daughter at the bedside to give her an update on the patient's plan of care and diagnosis. I will get Dr. Gentile for evaluation. The patient is on maximal treatment with Plavix and Coumadin which is therapeutic. I do not think this was a TIA, but cannot rule that out. The patient's symptoms have resolved. I will discharge the patient home later today. She will be placed on a heart-healthy diet. He currently is comfortable. DISPOSITION: Discharge home. FOLLOWUP: With primary care doctor in 1-2 weeks. CONDITION: Stable. Activities increase as tolerated. The patient was advised to come back to the hospital if symptoms recurred. Reji Marie MD
== END 2018-06-26 13:13 | disposition home or self-care (01) ==
LOC: ED 19:49 → ERH 22:26 → 5RSO 06-26 01:25
PROVIDERS: ADMIT Internal Medicine Nephrology; ATTEND Internal Medicine Nephrology
DX: R41.0 Disorientation, unspecified (principal); G93.89 Other specified disorders of brain; I25.10 Atherosclerotic heart disease of native coronary artery without angina pectoris; E78.5 Hyperlipidemia, unspecified; I10 Essential (primary) hypertension; N40.0 Benign prostatic hyperplasia without lower urinary tract symptoms; K50.90 Crohn's disease, unspecified, without complications; Z95.2 Presence of prosthetic heart valve; Z79.01 Long term (current) use of anticoagulants; E11.9 Type 2 diabetes mellitus without complications; E89.0 Postprocedural hypothyroidism; I48.91 Unspecified atrial fibrillation; Z86.73 Personal history of transient ischemic attack (TIA), and cerebral infarction without residual deficits; Z87.01 Personal history of pneumonia (recurrent); Z87.440 Personal history of urinary (tract) infections; Z90.49 Acquired absence of other specified parts of digestive tract; Z95.5 Presence of coronary angioplasty implant and graft; Z95.1 Presence of aortocoronary bypass graft; Z98.42 Cataract extraction status, left eye; Z98.41 Cataract extraction status, right eye; Z88.7 Allergy status to serum and vaccine; Z88.4 Allergy status to anesthetic agent; Z87.892 Personal history of anaphylaxis
CPT/HCPCS: 70450; 71045; 80053; 81001; 82550; 82948; 83615; 84484; 85027; 85610; 85730; 93005; 99285; G0378

== ENCOUNTER 2018-07-13 13:52 | Observation (INO) | payer MEDICARE ==
[2018-07-13 13:53] VITALS: BMI 24.7
--- NOTE | 2018-07-13 14:38 | ED PDOC ---
Arrival/HPI - General Chief Complaint: Chest Pain Time Seen by Provider: 07/13/18 14:20 Historian: Patient, Family (Daughter) - History of Present Illness Narrative History of Present Illness (Text): 07/13/18 14:32 An 88 year old male, whose past medical history includes TIA, BPH, CABG s/p CA, CAD with coronary stents, hypertension, ascending thoracic aneurysm repair, AV valve replacement, Crohn's disease, and dyslipidemia, presents to the emergency department with a complaint of left sided chest pain and left arm pain. The patient's daughter translated for the patient with his permission. She states that the patient experienced chest pain for about and hour yesterday. Today, the patient reports experiencing chest pain and left sided arm pain since 12 pm. The daughter notes that the patient has had previous episodes of left arm pain. The patient's symptoms have resolved. He denies fevers, chills, headache, dizziness, shortness of breath, dyspnea on exertion, cough, abdominal pain, nausea, vomiting, diarrhea, back pain, neck pain, urinary/bowel changes, or any other complaint. PMD: Dr. Izquierdo Social Work Faculty Member: Dr. Fuentes/ Dr. Peterson Time/Duration: Other (Yesterday) Symptom Onset: Sudden Symptom Course: Unchanged Activities at Onset: Rest, Light Context: Home Past Medical History - Provider Review Nursing Documentation Reviewed: Yes - Infectious Disease Hx of Infectious Diseases: None - Cardiac Hx Cardiac Disorders: Yes - Pulmonary Hx Pneumonia: Yes - Neurological HX Cerebrovascular Accident: Yes (TIA's) - HEENT Hx Cataracts: Yes (b/l removed) - Renal Hx Renal Disorder: No - Endocrine/Metabolic Hx Diabetes Mellitus Type 2: Yes - Hematological/Oncological Hx Blood Disorders: No - Integumentary Hx Dermatological Disorder: No - Musculoskeletal/Rheumatological Hx Falls: No - Gastrointestinal Hx Crohn's Disease: Yes - Genitourinary/Gynecological Hx Prostate Problems: Yes (enlarged) Hx Urinary Tract Infection: Yes (3 UTI) - Psychiatric Hx Emotional Abuse: No Hx Physical Abuse: No Hx Substance Use: No - Surgical History Hx Appendectomy: Yes Hx Cardiac Catheterization: Yes Hx Coronary Stent: Yes (2) Hx Musculoskeletal Surgery: Yes (back) Hx Open Heart Surgery: Yes (CAB) Hx Valve Replacement: Yes (aortic valve: St . Se) - Anesthesia Hx Anesthesia Reactions: No Hx Malignant Hyperthermia: No - Suicidal Assessment Feels Threatened In Home Enviroment: No Family/Social History - Physician Review Nursing Documentation Reviewed: Yes Family/Social History: No Known Family HX Smoking Status: Never Smoked Hx Alcohol Use: No Hx Substance Use: No Hx Substance Use Treatment: No Allergies/Home Meds Allergies/Adverse Reactions: Allergies pneumococcal vaccine Allergy (Severe, Verified 08/24/17 04:08) RASH Anesthetics - Alejandra Type- Parabens Adverse Reaction (Verified 08/24/17 04:08) ANAPHYLAXIS Home Medications: Home Meds Medication Instructions Recorded Confirmed RX: Mesalamine [Pentasa] 1,500 mg PO BID 09/02/15 06/26/18 RX: Simvastatin [Zocor] 40 mg PO DAILY 11/09/15 06/26/18 RX: Warfarin [Coumadin] 4 mg PO DAILY 11/09/15 06/26/18 RX: metFORMIN [glucOPHAGE] 500 mg PO TID 03/01/16 06/26/18 Review of Systems - Physician Review All systems were reviewed & negative as marked: Yes - Review of Systems Constitutional: absent: Fevers Respiratory: absent: SOB Physical Exam - Physical Exam Narrative Physical Exam (Text): 07/13/18 14:38 Constitutional: No acute distress. Head: Normocephalic. Atraumatic. Eyes: PERRL. ENT: Moist mucous membranes. Neck: Supple. Cardiovascular: Regular rate. Chest: No tenderness. Respiratory: Clear to auscultation bilaterally. GI: Soft. Nontender. Nondistended. Back: No CVA tenderness. Musculoskeletal: No tenderness or swelling of extremities. Skin: No rash. Neurologic: Alert, no focal deficit. Vital Signs Reviewed: Yes Vital Signs Temp Pulse Resp BP Pulse Ox 07/13/18 14:01 98 F 89 19 151/99 H 97 Temperature: Afebrile Blood Pressure: Hypertensive Pulse: Regular Respiratory Rate: Normal Appearance: Positive for: Well-Appearing, Non-Toxic, Comfortable Pain Distress: None Mental Status: Positive for: Alert and Oriented X 3 Medical Decision Making ED Course and Treatment: 07/13/18 14:38 Impression: An 88 year old male presents to the emergency department with a complaint of left arm and left sided- chest pain. Plan: -- EKG -- Chest X-ray -- Labs -- Reassess and disposition Prior Visits: Notes and results from previous visits were reviewed. Progress Notes: Chest X-ray Dictator : Bib Yeboah MD Report Date : 07/13/2018 15:12:46 IMPRESSION: No active disease. 07/13/18 15:52: Case discussed with Dr. Marie. - Lab Interpretations I have reviewed the lab results: Yes - EKG Interpretation Interpreted by ED Physician: Yes Type: 12 lead EKG - Scribe Statement The provider has reviewed the documentation as recorded by the Scribe Brionna Reddy Provider Scribe Attestation: All medical record entries made by the Scribe were at my direction and persona lly dictated by me. I have reviewed the chart and agree that the record accurately reflects my personal performance of the history, physical exam, medical decision making, and the department course for this patient. I have also personally directed, reviewed, and agree with the discharge instructions and disposition. Disposition/Present on Arrival - Present on Arrival Any Indicators Present on Arrival: No History of DVT/PE: No History of Uncontrolled Diabetes: No Urinary Catheter: No History of Decub. Ulcer: No History Surgical Site Infection Following: None - Disposition Have Diagnosis and Disposition been Completed?: Yes Diagnosis: Chest pain Disposition: HOME/ ROUTINE Disposition Time: 15:52 Patient Plan: Observation, Telemetry Condition: FAIR
[2018-07-13 14:48] LABS: BASO # 0.03 K/mm3 (0.0-2.0); BASO % 0.3 % (0.0-3.0); EOS # 0.3 (0.0-0.7); EOS % 2.4 % (1.5-5.0); GRAN # 7.79 (1.4-6.5); GRAN % 71.8 % (50.0-68.0); LYMPH # 1.9 (1.2-3.4); LYMPH % 17.1 % (22.0-35.0); MEAN CELL VOLUME 92.4 fl (80.0-105.0); MEAN CORPUSCULAR HEMOGLOBIN 30.4 pg (25.0-35.0); MEAN CORPUSCULAR HGB CONC 32.9 g/dl (31.0-37.0); MEAN PLATELET VOLUME 9.5 fl (7.0-11.0); MONO # 0.9 (0.1-0.6); MONO % 8.4 % (1.0-6.0); RBC 4.61 10^6/uL (3.5-6.1); RED CELL DISTRIBUTION WIDTH 13.9 % (11.5-14.5); WHITE BLOOD COUNT 10.8 10^3/uL (4.5-11.0)
[2018-07-13 15:00] LABS: INR 2.57; PARTIAL THROMBOPLASTIN TIME 38.2 Seconds (25.1-36.5); PROTHROMBIN TIME 29.9 SECONDS (9.4-12.5)
[2018-07-13 15:04] LABS: ALB/GLOB RATIO 1.1 (1.1-1.8); ALBUMIN 4.3 g/dL (3.0-4.8); ALT/SGPT 25 U/L (7-56); AST/SGOT 35 U/L (17-59); BLOOD UREA NITROGEN 17 mg/dL (7-21); CALCIUM 9.6 mg/dL (8.4-10.5); GFR NON-AFRICAN AMERICAN > 60
[2018-07-13 15:14] LABS: TROPONIN I < 0.01 ng/mL
--- NOTE | 2018-07-13 15:16 | RAD ---
Date of service: 07/13/2018 HISTORY: chest pain COMPARISON: 06/25/2018 FINDINGS: LUNGS: No active pulmonary disease. PLEURA: No significant pleural effusion identified, no pneumothorax apparent. CARDIOVASCULAR: Aortic calcification Moderate cardiomegaly no pulmonary vascular congestion. OSSEOUS STRUCTURES: No significant abnormalities. VISUALIZED UPPER ABDOMEN: Normal. OTHER FINDINGS: None. IMPRESSION: No active disease.
[2018-07-13 21:43] LABS: TROPONIN I 0.02 ng/mL
[2018-07-14 06:35] VITALS: BP 140/62; PULSE 69; RESP 18; TEMP 97.4; O2SAT 95
[2018-07-14] MEDS ORDERED: Mesalamine ER Cap 500 MG PO SCH (07:30)
--- NOTE | 2018-07-14 08:03 | CARD ---
APPROVED REPORT Date of service: 07/13/2018 EKG Measurement Heart [id number] <Conclusion> Normal sinus rhythm Left axis deviation Low voltage QRS Anteroseptal infarct, age undetermined Abnormal ECG
--- NOTE | 2018-07-14 12:31 | CON ---
DATE: 07/14/2018 REQUESTING PHYSICIAN: Dr. Marie. REASON FOR CONSULTATON: Chest pain. HISTORY: This is an 88-year-old man, well known to me with a history of coronary artery disease status post prior bypass surgery and multivessel PCI, who presented with left arm and chest discomfort. He has had several episodes of left arm pain recently, these have been nonexertional in nature. He has not taken any sublingual nitroglycerin for his symptoms. Yesterday, he had left arm discomfort and felt he had mild chest discomfort and presents to the emergency room. His electrocardiogram showed no acute changes and cardiac enzymes have been negative. He was seen in the presence of his daughter at the bedside. PAST MEDICAL HISTORY: His past history is notable for a prior TIA, a recent TIA in addition to profound neurologic changes and altered mental status following his catheterization a year ago. 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 He does have a history of hypertension. He underwent ascending thoracic aortic aneurysm. An aortic valve replacement at the time of his bypass surgery. He has a history of hyperlipidemia and Crohn disease. He has had UTIs in the past, bilateral cataracts, benign prostatic hypertrophy, and diabetes. MEDICATIONS: His medications at home include metformin, warfarin, simvastatin, Pentasa, and carvedilol. ALLERGIES: HE HAS HAD A REACTION TO PNEUMOCOCCAL VACCINE IN THE PAST WELL POSSIBLE ADVERSE ANESTHESIA REACTION FOLLOWING HIS PRIOR CATHETERIZATION, ALTHOUGH THI WAS NOT CLEAR. SOCIAL HISTORY: He does not smoke or drink. He is , lives at home with his . FAMILY HISTORY: Both parents from age-related illness. REVIEW OF SYSTEMS: Ten-point review of systems is otherwise unremarkable. PHYSICAL EXAMINATION: GENERAL: He is a very elderly man, who appears comfortable at rest. VITAL SIGNS: His blood pressure is 140/60 with a pulse of 76 and sinus, his respirations are 16. He is afebrile. HEENT: Normocephalic, atraumatic. NECK: Supple. No JVD noted. CHEST: Few scattered rhonchi heard. HEART: PMI in normal position. A soft systolic murmur is present at the left sternal border. ABDOMEN: The abdomen is soft, nontender. Normoactive bowel sounds. EXTREMITIES: No edema. SKIN: Warm and dry. PSYCHIATRIC: Normal mood and affect. NEUROLOGIC: No gross motor deficits noted. He is alert and oriented x3. DIAGNOSTIC DATA: White count is 10.8, hemoglobin and hematocrit 14 and 42.6 with platelet count of 239,000. PT/INR is 29.9 and 2.57, potassium 4.2, BUN and creatinine 17 and 0.8. Three sets of cardiac enzymes are negative. His electrocardiogram reveals sinus rhythm with left axis deviation and prior anteroseptal wall myocardial fraction pattern, no acute changes noted. Chest x-ray reveals enlarged cardiac silhouette with poor sternotomy changes and clear lung bourgeois. IMPRESSION: 1. Recent arm and chest pain, possible angina, although could also be secondary to cervical neuritis. 2. Known coronary artery disease status post prior bypass surgery and multivessel PCI. 3. Rest of problems as noted. RECOMMENDATIONS: As his cardiac enzymes are negative, his electrocardiogram shows no acute changes. Discharge home at this time will be reasonable. A trial of sublingual nitroglycerin for any future arm and chest pain would be helpful in attempts to differentiate whether his pain is cardiac or noncardiac. In the interim for safety measure, his carvedilol will be increased to 6.25 mg b.i.d. He is instructed to call with any recurrent symptoms. Continued conservative management appears most reasonable at this time. Thank you for this consultation. We will continue to provide ongoing outpatient followup. Imtiaz Peterson MD [facility]
--- NOTE | 2018-07-14 15:18 | HP ---
DATE OF EXAM: 07/14/2018 CHIEF COMPLAINT AND HISTORY OF PRESENT ILLNESS: This is an 88-year-old male who is coming to the hospital. He was having chest pain. He says it is going down the left arm. He was not complaining of any nausea, no shortness of breath, no headaches. No fevers or chills. He denies any abdominal pain or back pain. No dysuria, frequency or nocturia. The patient said the pain started yesterday. He does not have any pain this morning. He was not able to quantify the pain. He said it was down left arm. This happened about 12:00, there is no other associated symptoms. The patient's daughter was concerned about the left arm radiation and brought the patient for further evaluation. The patient has no dysuria, no frequency. No neck pain. No diplopia or dysarthria. No focal weakness in the arms or the legs. All other review of symptoms are within normal limits except what is mentioned. ALLERGIES: PNEUMOCOCCAL VACCINATION AND ANESTHETICS: HOME MEDICATIONS: Pentasa, Zocor, Coumadin and Glucophage. PAST MEDICAL HISTORY: 1. Aortic valve replacement on Coumadin. 2. Crohn's disease. 3. BPH. 4. Hypertension. 5. Dyslipidemia. 6. Coronary artery disease status post CABG. 7. Small bowel obstruction. PAST SURGICAL HISTORY: CABG, aortic valve replacement, thyroidectomy and spinal surgery. FAMILY HISTORY: Noncontributory. SOCIAL HISTORY: He does not smoke, drink or use drugs. PHYSICAL EXAMINATION: VITAL SIGNS: Temperature 97.4, pulse of 69, blood pressure 140/62, respirations 18 and O2 saturation 95%. Height is 5 feet 3 inches, weight is 140 pounds and BMI is 24.8. GENERAL: The patient is lying in bed, comfortable, and in no acute distress. HEENT: Atraumatic and normocephalic. Anicteric sclerae. Moist mucosa. Rogers conjunctivae. No oral lesions. NECK: No JVD, anterior and posterior adenopathy, thyromegaly, or bruits. CARDIOVASCULAR: S1 and S2 regular. No murmurs, rubs or gallops. LUNGS: Clear to auscultation bilaterally. No wheezes, rales, or rhonchi. ABDOMEN: Bowel sounds are positive. Soft, nontender and nondistended. No hepatosplenomegaly. No rebound and no guarding. EXTREMITIES: No cyanosis, clubbing, or edema. NEUROLOGIC: No facial asymmetry. Tongue is midline. No uvula deviation. Power is 5/5 upper extremities and lower extremities. Sensation intact in upper extremities and lower extremities. PSYCHIATRIC: She is awake, alert and oriented x3. No anxiety or depression. She has normal affect. GENITOURINARY: No CVA tenderness. VASCULAR: 2+ pulses in the carotid pulses and pedal pulses. SKIN: No erythema or nodules. SPINE: Shows normal curvature. LABORATORY DATA: White count is 10.8, hemoglobin is 14 and platelet count is 239. INR is 2.57. Chemistry shows troponin x2 has been negative. Creatinine 0.8. Albumin is 4.3. ASSESSMENT: 1. Chest pain. 2. Coronary artery disease status post coronary artery bypass graft. 3. Aortic valve replacement on Coumadin. 4. Hypertension. 5. Dyslipidemia. 6. Benign prostatic hyperplasia. 7. Crohn's disease. PLAN: The patient is brought in as an observation. He is chest pain free at this point. He does have a history of coronary disease, dyslipidemia, he will continue his Coumadin for his anticoagulation. He is on carvedilol for his coronary artery disease. He is going to be on mesalamine 1500 mg at breakfast for his Crohn's. He is going to continue with finasteride for his BPH. He is on atorvastatin for his dyslipidemia. The patient is on a regular diet. We will speak to the patient's daughter to give her an update. Reji Marie MD
== END 2018-07-14 09:36 | disposition home or self-care (01) ==
LOC: ED 13:52 → ERH 15:53 → 2RNO 07-14 04:33
PROVIDERS: ADMIT Internal Medicine Nephrology; ATTEND Internal Medicine Nephrology
DX: I25.119 Atherosclerotic heart disease of native coronary artery with unspecified angina pectoris (principal); G58.8 Other specified mononeuropathies; K50.90 Crohn's disease, unspecified, without complications; N40.0 Benign prostatic hyperplasia without lower urinary tract symptoms; I10 Essential (primary) hypertension; E78.5 Hyperlipidemia, unspecified; Z95.1 Presence of aortocoronary bypass graft; E11.9 Type 2 diabetes mellitus without complications; E89.0 Postprocedural hypothyroidism; I25.2 Old myocardial infarction; Z86.73 Personal history of transient ischemic attack (TIA), and cerebral infarction without residual deficits; Z87.01 Personal history of pneumonia (recurrent); Z87.440 Personal history of urinary (tract) infections; Z90.49 Acquired absence of other specified parts of digestive tract; Z95.2 Presence of prosthetic heart valve; Z95.5 Presence of coronary angioplasty implant and graft; Z88.4 Allergy status to anesthetic agent; Z88.7 Allergy status to serum and vaccine
CPT/HCPCS: 36415; 71045; 80053; 82550; 82948; 83615; 84484; 85025; 85610; 85730; 93005; 99285; G0378

== ENCOUNTER 2018-08-07 16:06 | Inpatient (IN) | payer MEDICARE ==
[2018-08-07 16:55] LABS: BASO # 0.03 K/mm3 (0.0-2.0); BASO % 0.2 % (0.0-3.0); EOS # 0.3 (0.0-0.7); EOS % 1.6 % (1.5-5.0); HEMOGLOBIN 14.6 g/dL (14.0-18.0); LYMPH # 1.8 (1.2-3.4); LYMPH % 11.3 % (22.0-35.0); MEAN CELL VOLUME 92.8 fl (80.0-105.0); MEAN CORPUSCULAR HEMOGLOBIN 30.8 pg (25.0-35.0); MEAN CORPUSCULAR HGB CONC 33.2 g/dl (31.0-37.0); MEAN PLATELET VOLUME 9.5 fl (7.0-11.0); MONO # 0.9 (0.1-0.6); MONO % 5.7 % (1.0-6.0); RBC 4.74 10^6/uL (3.5-6.1); RED CELL DISTRIBUTION WIDTH 13.4 % (11.5-14.5); WHITE BLOOD COUNT 16.2 10^3/uL (4.5-11.0)
--- NOTE | 2018-08-07 16:59 | ED PDOC ---
Arrival/HPI - General Chief Complaint: Headache Time Seen by Provider: 08/07/18 16:13 Historian: Patient - History of Present Illness Narrative History of Present Illness (Text): 08/07/18 16:54 An 88 year old male, whose past medical history includes TIA, BPH, CABG s/p [place], CAD with coronary stents, hypertension, ascending thoracic aneurysm repair, AV valve replacement, Crohn's disease, and dyslipidemia, presents to the ED for evaluation of frontal headache since waking up this morning. As per , patient took 2 Tylenol without any improvement to symptoms. Patient additionally reports 1 episode of vomiting at 4 pm, prompting patient to present to the ED for evaluation. Patient states his INR was elevated to 5.5 and was stopped taking Coumadin for 5 days. Patient's repeat INR yesterday was 1.1 and was asked to take one dose of 4mg of Coumadin. Patient denies any other associated somatic complaints. Patient denies any fevers, chills, visual changes, dizziness, syncope, neck pain/stiffness, chest pain, shortness of breath, dyspnea on exertion, cough, abdominal pain, nausea, diarrhea, back pain, neck pain, vision changes, focal weakness, or any other complaints. Time/Duration: 4-6 hours Symptom Onset: Gradual Symptom Course: Unchanged Activities at Onset: Light Context: Home Past Medical History - Provider Review Nursing Documentation Reviewed: Yes - Infectious Disease Hx of Infectious Diseases: None - Cardiac Hx Cardiac Disorders: Yes Hx Congestive Heart Failure: Yes - Pulmonary Hx Respiratory Disorders: Yes Hx Pneumonia: Yes - Neurological HX Cerebrovascular Accident: Yes (TIA's) - HEENT Hx HEENT Disorder: Yes Hx Cataracts: Yes - Renal Hx Renal Disorder: No - Endocrine/Metabolic Hx Endocrine Disorders: Yes Hx Diabetes Mellitus Type 2: Yes - Hematological/Oncological Hx Blood Disorders: No - Integumentary Hx Dermatological Disorder: No - Musculoskeletal/Rheumatological Hx Falls: No - Gastrointestinal Hx Gastrointestinal Disorders: Yes Hx Crohn's Disease: Yes - Genitourinary/Gynecological Hx Genitourinary Disorders: Yes Hx Incontinence: Yes - Psychiatric Hx Emotional Abuse: No Hx Physical Abuse: No Hx Substance Use: No - Surgical History Hx Cardiac Catheterization: Yes Hx Coronary Stent: Yes Hx Open Heart Surgery: Yes Other/Comment: cataract surgery - Anesthesia Hx Anesthesia Reactions: No Hx Malignant Hyperthermia: No - Suicidal Assessment Feels Threatened In Home Enviroment: No Family/Social History - Physician Review Nursing Documentation Reviewed: Yes Family/Social History: No Known Family HX Smoking Status: Never Smoked Hx Alcohol Use: No Hx Substance Use: No Hx Substance Use Treatment: No Allergies/Home Meds Allergies/Adverse Reactions: Allergies pneumococcal vaccine Allergy (Severe, Verified 08/24/17 04:08) RASH Anesthetics - Alejandra Type- Parabens Adverse Reaction (Verified 08/24/17 04:08) ANAPHYLAXIS Home Medications: Home Meds Medication Instructions Recorded Confirmed RX: Mesalamine [Pentasa] 1,500 mg PO BID 09/02/15 07/14/18 RX: Simvastatin [Zocor] 40 mg PO DAILY 11/09/15 07/14/18 RX: Warfarin [Coumadin] 4 mg PO DAILY 11/09/15 07/14/18 RX: metFORMIN [glucOPHAGE] 500 mg PO TID 03/01/16 07/14/18 Review of Systems - Physician Review All systems were reviewed & negative as marked: Yes - Review of Systems Eyes: absent: Vision Changes Respiratory: absent: SOB, Cough Cardiovascular: absent: Chest Pain Gastrointestinal: Vomiting. absent: Abdominal Pain, Diarrhea, Nausea Genitourinary Male: absent: Dysuria, Urinary Output Changes Musculoskeletal: absent: Back Pain, Neck Pain Skin: absent: Rash Neurological: Headache. absent: Dizziness Psychiatric: absent: Anxiety Physical Exam Vital Signs Reviewed: Yes Vital Signs Temp Pulse Resp BP Pulse Ox 08/07/18 16:06 96.4 F L 82 16 177/91 H 96 Temperature: Afebrile Blood Pressure: Hypertensive Pulse: Regular Respiratory Rate: Normal Appearance: Positive for: Well-Appearing, Non-Toxic, Comfortable Pain Distress: None Mental Status: Positive for: Alert and Oriented X 3 - Systems Exam Head: Present: Atraumatic, Normocephalic Pupils: Present: PERRL Extroacular Muscles: Present: EOMI Conjunctiva: Present: Normal Mouth: Present: Moist Mucous Membranes Neck: Present: Normal Range of Motion Respiratory/Chest: Present: Clear to Auscultation, Good Air Exchange. No: Re spiratory Distress, Accessory Muscle Use Cardiovascular: Present: Regular Rate and Rhythm, Normal S1, S2, Other (Systolic click noted on auscultation). No: Murmurs Abdomen: No: Tenderness, Distention, Peritoneal Signs Back: Present: Normal Inspection Upper Extremity: Present: Normal Inspection. No: Cyanosis, Edema Lower Extremity: Present: Normal Inspection. No: Edema Neurological: Present: GCS=15, CN II-XII Intact, Speech Normal Skin: Present: Warm, Dry, Normal Color. No: Rashes Psychiatric: Present: Alert, Oriented x 3, Normal Insight, Normal Concentration Medical Decision Making ED Course and Treatment: 08/07/18 16:17 Impression: 88 year old male presents to the ED for evaluation of headache. Plan: -- CT of Head -- EKG -- Labs -- CXR -- Blood Culture -- Urine Culture -- Reassess and disposition Prior Visits: Notes and results from previous visits were reviewed. Progress Notes: 08/07/18 16:00 EKG reviewed, shows NSR at 82bpm, normal interval, normal axis, poor R wave progression. Q waves at anterior septal lead. No acute changes from previous. 08/07/18 17:45 CT of Head reviewed by radiologist, shows no acute intracranial abnormalities. 08/07/18 17:47 Daughter at bedside, who states patient appears mildly confused with difficulty focusing on her during CT scan. 08/07/18 18:31 CXR reviewed by radiologist, shows no active disease. 08/07/18 18:[address] Marie, who is aware and agrees with ED management plan, accepts patient admission to Observation under his service. 08/07/18 18:56 Rectal temperature 97.5F. - RAD Interpretation Radiology Orders: 08/07/18 16:17 HEAD W/O CONTRAST [CT] Stat CHEST PORTABLE [RAD] Stat [employer] Worker: Radiologist - EKG Interpretation Interpreted by ED Physician: Yes Type: 12 lead EKG - Scribe Statement The provider has reviewed the documentation as recorded by the Scribe Faby Morgan. All medical record entries made by the Scribe were at my direction and personally dictated by me. I have reviewed the chart and agree that the record accurately reflects my personal performance of the history, physical exam, medical decision making, and the department course for this patient. I have also personally directed, reviewed, and agree with the discharge instructions and disposition. Disposition/Present on Arrival - Present on Arrival Any Indicators Present on Arrival: No History of DVT/PE: No History of Uncontrolled Diabetes: No Urinary Catheter: No History of Decub. Ulcer: No History Surgical Site Infection Following: None - Disposition Have Diagnosis and Disposition been Completed?: Yes Diagnosis: Headache, Altered mental status, Hyperglycemia Disposition: HOSPITALIZED Disposition Time: 18:35 Patient Plan: Admission, Observation Patient Problems: Current Active Problems Problem Status Onset Altered mental status Acute Headache Acute Hyperglycemia Acute Condition: STABLE
[2018-08-07 17:12] LABS: ALB/GLOB RATIO 1.1 (1.1-1.8); ALBUMIN 4.7 g/dL (3.0-4.8); ALT/SGPT 16 U/L (7-56); AST/SGOT 40 U/L (17-59); BLOOD UREA NITROGEN 19 mg/dL (7-21); CALCIUM 9.9 mg/dL (8.4-10.5); GFR NON-AFRICAN AMERICAN > 60
--- NOTE | 2018-08-07 17:12 | CT ---
Date of service: 08/07/2018 PROCEDURE: CT HEAD WITHOUT CONTRAST. HISTORY: headache, vomiting COMPARISON: 06/17/2017 and 06/25/2018 TECHNIQUE: Axial computed tomography images were obtained through the head/brain without intravenous contrast. Supplemental Coronal and Sagittal projections created and reviewed. Radiation dose: Total exam DLP = 774.35 mGy-cm. This CT exam was performed using one or more of the following dose reduction techniques: Automated exposure control, adjustment of the mA and/or kV according to patient size, and/or use of iterative reconstruction technique. FINDINGS: HEMORRHAGE: No intracranial hemorrhage. BRAIN: No mass effect or edema. Cortical and cerebellar atrophy, periventricular small vessel disease. VENTRICLES: Unremarkable. No hydrocephalus. CALVARIUM: Unremarkable. PARANASAL SINUSES: Unremarkable as visualized. No significant inflammatory changes. MASTOID AIR CELLS: Unremarkable as visualized. No inflammatory changes. OTHER FINDINGS: None. IMPRESSION: No acute intracranial abnormalities. No significant findings to account for the clinical presentation. No significant interval change compared to the prior examination(s).
[2018-08-07 17:17] LABS: INR 1.23; PARTIAL THROMBOPLASTIN TIME 31.2 Seconds (26.9-38.3); PROTHROMBIN TIME 13.7 SECONDS (9.4-12.5)
[2018-08-07 17:25] LABS: TROPONIN I < 0.01 ng/mL
--- NOTE | 2018-08-07 17:47 | RAD ---
Date of service: 08/07/2018 HISTORY: Vomiting. COMPARISON: 07/13/2018 FINDINGS: LUNGS: No active pulmonary disease. PLEURA: No significant pleural effusion identified, no pneumothorax apparent. CARDIOVASCULAR: Atherosclerotic calcifications identified primarily aortic arch. Cardiomegaly No radiographic findings to suggest acute or significant cardiovascular disease. Incidental Finding(s): Postoperative changes related to sternotomy. OSSEOUS STRUCTURES: No significant abnormalities. VISUALIZED UPPER ABDOMEN: Normal. OTHER FINDINGS: None. IMPRESSION: No active disease. No significant interval change compared to the prior examination(s).
[2018-08-07] MEDS ORDERED: Sodium Chloride 0.9% 250 ML IV SCH (18:00)
[2018-08-07 18:14] LABS: PH,URINE 6.5 (4.7-8.0); URINE BILIRUBIN NEGATIVE (NEGATIVE); URINE BLOOD NEGATIVE (NEGATIVE); URINE GLUCOSE (UA) NEGATIVE (NEGATIVE); URINE LEUKOCYTE ESTERASE NEGATIVE Leu/uL (NEGATIVE); URINE PROTEIN 100 mg/dL (<30 mg/dL); URINE UROBILINOGEN 0.2 E.U./dL (<1 E.U./dL)
[2018-08-07 18:17] LABS: URINE APPEARANCE CLEAR (CLEAR); URINE COLOR YELLOW (YELLOW)
[2018-08-07] MEDS: Mesalamine ER Cap 500 MG PO SCH (19:29)
[2018-08-07] MEDS: Cefepime 1gm in NS 100ml 1 GM/100 ML BAG IVPB SCH (22:11)
[2018-08-08 01:43] VITALS: BMI 27.1
[2018-08-08 06:48] LABS: HEMOGLOBIN 13.5 g/dL (14.0-18.0); INR 1.57; MEAN CELL VOLUME 90.9 fl (80.0-105.0); MEAN CORPUSCULAR HEMOGLOBIN 30.1 pg (25.0-35.0); MEAN CORPUSCULAR HGB CONC 33.1 g/dl (31.0-37.0); MEAN PLATELET VOLUME 9.5 fl (7.0-11.0); PROTHROMBIN TIME 17.7 SECONDS (9.4-12.5); RBC 4.49 10^6/uL (3.5-6.1); RED CELL DISTRIBUTION WIDTH 13.2 % (11.5-14.5)
[2018-08-08 07:31] LABS: ALB/GLOB RATIO 1.1 (1.1-1.8); ALBUMIN 4.3 g/dL (3.0-4.8); ALT/SGPT 8 U/L (7-56); AST/SGOT 50 U/L (17-59); BLOOD UREA NITROGEN 16 mg/dL (7-21); CALCIUM 9.6 mg/dL (8.4-10.5); GFR NON-AFRICAN AMERICAN > 60
[2018-08-08] MEDS: Mesalamine ER Cap 500 MG PO SCH ×2 (09:26→17:24)
[2018-08-08] MEDS: Cefepime 1gm in NS 100ml 1 GM/100 ML BAG IVPB SCH ×2 (09:27→21:27)
--- NOTE | 2018-08-08 09:36 | CARD ---
APPROVED REPORT Date of service: 08/07/2018 EKG Measurement Heart [id number] [id number] <Conclusion> Poor data quality, interpretation may be adversely affected Normal sinus rhythm Low voltage QRS Cannot rule out Anteroseptal infarct, age undetermined Abnormal ECG
[2018-08-08 11:33] LABS: HDL CHOLESTEROL 24 mg/dL (29-60)
[2018-08-08 11:43] LABS: LDL CHOLESTEROL 66 mg/dL (0-129)
[2018-08-08 12:21] LABS: FREE T4 1.08 ng/dL (0.78-2.19)
--- NOTE | 2018-08-08 13:11 | CP.PCM.HP ---
<Gerardo Arce - Last Filed: 08/08/18 13:07> History of Present Illness - History of Present Illness History of Present Illness: H&P for Dr Marie: CC: Headache 88 year old male, whose past medical history includes TIA, BPH, CABG s/p PA, CAD with coronary stents, hypertension, ascending thoracic aneurysm repair, AV valve replacement, Crohn's disease, and dyslipidemia, presents with headache. Patient accompanied by daughter states that headache started 1-2 days ago. Patient has been trying to take Tylenol for the pain however has not alleviated his pain. Then yesterday afternoon he had one episode of NBNB nausea and vomiting which prompted him to come to the ED. Patient states that the headache is in the bilateral frontal region. He denies any visual changes. Patient denies any fall or trauma. No other complaints. 12 point ROS was performed and negative other than stated above. PMH: As above PSH: CABG Allergies: Pneumococcal vaccine, anesthetics including alejandra type parabens SH: Former smoker over 30 years ago, denies any drinking or drugs FH: Denies Present on Admission - Present on Admission Any Indicators Present on Admission: No Review of Systems - Review of Systems All systems: reviewed and no additional remarkable complaints except Past Patient History - Infectious Disease Hx of Infectious Diseases: None - Past Social History Smoking Status: Never Smoked - CARDIAC Hx Cardiac Disorders: Yes Hx Congestive Heart Failure: Yes - PULMONARY Hx Respiratory Disorders: Yes Hx Pneumonia: Yes - NEUROLOGICAL HX Cerebrovascular Accident: Yes (TIA's) - HEENT Hx HEENT Problems: Yes Hx Cataracts: Yes - RENAL Hx Chronic Kidney Disease: No - ENDOCRINE/METABOLIC Hx Endocrine Disorders: Yes Hx Diabetes Mellitus Type 2: Yes - HEMATOLOGICAL/ONCOLOGICAL Hx Blood Disorders: No - INTEGUMENTARY Hx Dermatological Problems: No - MUSCULOSKELETAL/RHEUMATOLOGICAL Hx Falls: No - GASTROINTESTINAL Hx Gastrointestinal Disorders: Yes Hx Crohn's Disease: Yes - GENITOURINARY/GYNECOLOGICAL Hx Genitourinary Disorders: Yes Hx Incontinence: Yes - PSYCHIATRIC Hx Emotional Abuse: No Hx Physical Abuse: No Hx Substance Use: No - SURGICAL HISTORY Hx Cardiac Catheterization: Yes Hx Coronary Stent: Yes Hx Open Heart Surgery: Yes Other/Comment: cataract surgery - ANESTHESIA Hx Anesthesia Reactions: No Hx Malignant Hyperthermia: No Meds Allergies/Adverse Reactions: Allergies Allergy/AdvReac Type Severity Reaction Status Date / Time pneumococcal vaccine Allergy Severe RASH Verified 08/24/17 04:08 Anesthetics - Alejandra Type- AdvReac ANAPHYLAXIS Verified 08/24/17 04:08 Parabens Physical Exam - Constitutional Appears: No Acute Distress - Head Exam Head Exam: ATRAUMATIC, NORMOCEPHALIC - Eye Exam Eye Exam: EOMI - ENT Exam ENT Exam: Mucous Membranes Moist - Respiratory Exam Respiratory Exam: Clear to Auscultation Bilateral. absent: Wheezes - Cardiovascular Exam Cardiovascular Exam: REGULAR RHYTHM, RRR, +S1, +S2 - GI/Abdominal Exam GI & Abdominal Exam: Normal Bowel Sounds, Soft. absent: Tenderness - Extremities Exam Extremities exam: Negative for: calf tenderness, pedal edema - Neurological Exam Neurological exam: Alert, Altered, CN II-XII Intact Additional comments: AAO x 1 - Psychiatric Exam Psychiatric exam: Normal Mood - Skin Skin Exam: Dry, Warm Results - Vital Signs Recent Vital Signs: Last Vital Signs Temp 99.7 F H 08/08/18 12:00 Pulse 76 08/08/18 12:00 Resp 18 08/08/18 12:00 BP 150/80 08/08/18 12:00 Pulse Ox 97 08/08/18 06:00 - Labs Result Diagrams: 08/08/18 06:30 08/08/18 06:30 Labs: Laboratory Results - last 24 hr 08/07/18 08/07/18 08/07/18 16:40 16:40 16:40 WBC 16.2 H D RBC 4.74 Hgb 14.6 Hct 44.0 MCV 92.8 MCH 30.8 MCHC 33.2 RDW 13.4 Plt Count 269 MPV 9.5 Neut % (Auto) 81.2 H Lymph % (Auto) 11.3 L [place] % (Auto) 5.7 Eos % (Auto) 1.6 Baso % (Auto) 0.2 Lymph # (Auto) 1.8 [place] # (Auto) 0.9 H Eos # (Auto) 0.3 Baso # (Auto) 0.03 Absolute Neuts (auto) 13.18 H PT 13.7 H INR 1.23 APTT 31.2 Sodium 139 Potassium 4.6 Chloride 101 Carbon Dioxide 29 Anion Gap 14 BUN 19 Creatinine 0.9 Est GFR ( Amer) > 60 Est GFR (Non-Af Amer) > 60 Random Glucose 172 H Calcium 9.9 Phosphorus 3.2 Magnesium 1.9 Total Bilirubin 0.9 AST 40 ALT 16 Alkaline Phosphatase 89 Lactate Dehydrogenase 500 Total Creatine Kinase 39 Troponin I < 0.01 Total Protein 9.1 H Albumin 4.7 Globulin 4.4 Albumin/Globulin Ratio 1.1 Triglycerides Cholesterol LDL Cholesterol Direct HDL Cholesterol Free T4 TSH 3rd Generation Urine Color Urine Appearance Urine pH Ur Specific [place] Urine Protein Urine Glucose (UA) Urine Ketones Urine Blood Urine Nitrate Urine Bilirubin Urine Urobilinogen Ur Leukocyte Esterase Urine RBC Urine WBC Ur Epithelial Cells 08/07/18 08/08/18 08/08/18 18:00 06:30 06:30 WBC 14.0 H RBC 4.49 Hgb 13.5 L Hct 40.8 L MCV 90.9 MCH 30.1 MCHC 33.1 RDW 13.2 Plt Count 271 MPV 9.5 Neut % (Auto) Lymph % (Auto) [place] % (Auto) Eos % (Auto) Baso % (Auto) Lymph # (Auto) [place] # (Auto) Eos # (Auto) Baso # (Auto) Absolute Neuts (auto) PT INR APTT Sodium 134 Potassium 4.2 Chloride 100 Carbon Dioxide 26 Anion Gap 12 BUN 16 Creatinine 0.9 Est GFR ( Amer) > 60 Est GFR (Non-Af Amer) > 60 Random Glucose 154 H Calcium 9.6 Phosphorus Magnesium Total Bilirubin 1.0 AST 50 ALT 8 Alkaline Phosphatase 70 Lactate Dehydrogenase Total Creatine Kinase Troponin I Total Protein 8.2 Albumin 4.3 Globulin 3.9 Albumin/Globulin Ratio 1.1 Triglycerides Cholesterol LDL Cholesterol Direct HDL Cholesterol Free T4 TSH 3rd Generation Urine Color Yellow Urine Appearance Clear Urine pH 6.5 Ur Specific [place] 1.020 Urine Protein 100 H Urine Glucose (UA) Negative Urine Ketones 15 H Urine Blood Negative Urine Nitrate Negative Urine Bilirubin Negative Urine Urobilinogen 0.2 Ur Leukocyte Esterase Negative Urine RBC TEST NOT PERFORMED Urine WBC 2 - 5 Ur Epithelial Cells 6 - 8 H 08/08/18 08/08/18 08/08/18 06:30 10:00 11:18 WBC RBC Hgb Hct MCV MCH MCHC RDW Plt Count MPV Neut % (Auto) Lymph % (Auto) [place] % (Auto) Eos % (Auto) Baso % (Auto) Lymph # (Auto) [place] # (Auto) Eos # (Auto) Baso # (Auto) Absolute Neuts (auto) PT 17.7 H INR 1.57 APTT Sodium Potassium Chloride Carbon Dioxide Anion Gap BUN Creatinine Est GFR ( Amer) Est GFR (Non-Af Amer) Random Glucose Calcium Phosphorus Magnesium Total Bilirubin AST ALT Alkaline Phosphatase Lactate Dehydrogenase Total Creatine Kinase Troponin I Total Protein Albumin Globulin Albumin/Globulin Ratio Triglycerides 132 Cholesterol 122 L LDL Cholesterol Direct 66 HDL Cholesterol 24 L Free T4 1.08 TSH 3rd Generation 0.69 Urine Color Urine Appearance Urine pH Ur Specific [place] Urine Protein Urine Glucose (UA) Urine Ketones Urine Blood Urine Nitrate Urine Bilirubin Urine Urobilinogen Ur Leukocyte Esterase Urine RBC Urine WBC Ur Epithelial Cells Assessment & Plan - Assessment and Plan (Free Text) Assessment: 1. Delirium 2. SIRS criteria (with fever and leukocytosis) 3. headaches 4. nausea vomiting 5. CAD with CABG and stent placement 6. Hypertension 7. BPH 8. History of TIA 9. Crohn's disease Patient was found to have SIRS criteria rule out urinary tract infection. Chest x-ray was performed and was negative. CT of the head was performed and was negative. Following the CT of the head patient appeared delirious and more confused as per the daughter. Patient is on cefepime for possible infection. Patient is currently on Tylenol for his headaches. No more episodes of nausea or vomiting. For his history of TIA continue with Plavix and Coumadin. Monitor tomorrow's INR. Continue with Lipitor for his hyperlipidemia. Continue with Coreg for his hypertension. Continue with mesalamine for his Crohn's disease. This morning patient as well as the daughter state the patient is a little less confused. Continue to follow-up septic workup including urine and blood cultures. We will continue to monitor for any changes. Case and plan was reviewed and discussed with Dr. Steele <Reji Marie - Last Filed: 08/12/18 21:38> Results - Vital Signs Recent Vital Signs: Last Vital Signs Temp 98.9 F 08/12/18 18:00 Pulse 62 08/12/18 18:00 Resp 20 08/12/18 18:00 BP 142/66 08/12/18 18:00 Pulse Ox 98 08/12/18 06:00 - Labs Result Diagrams: 08/12/18 06:30 08/12/18 06:00 Labs: Laboratory Results - last 24 hr 08/12/18 08/12/18 08/12/18 06:00 06:30 06:30 WBC 10.5 RBC 4.54 Hgb 13.6 L Hct 41.7 L MCV 91.9 MCH 30.0 MCHC 32.6 RDW 13.3 Plt Count 212 MPV 10.0 Neut % (Auto) 69.1 H Lymph % (Auto) 20.5 L [place] % (Auto) 6.7 H Eos % (Auto) 3.3 Baso % (Auto) 0.4 Lymph # (Auto) 2.2 [place] # (Auto) 0.7 H Eos # (Auto) 0.4 Baso # (Auto) 0.04 Absolute Neuts (auto) 7.25 H PT 18.5 H INR 1.64 Sodium 136 Potassium 3.4 L Chloride 102 Carbon Dioxide 26 Anion Gap 11 BUN 15 Creatinine 0.8 Est GFR ( Amer) > 60 Est GFR (Non-Af Amer) > 60 Random Glucose 108 Calcium 9.0 Total Bilirubin 0.9 AST 38 ALT 22 Alkaline Phosphatase 61 Total Protein 7.6 Albumin 3.7 Globulin 3.9 Albumin/Globulin Ratio 1.0 L Assessment & Plan - Assessment and Plan (Free Text) Assessment: Pt seen and examined by me. This is a late entry. I have reviewed the note of the director medical economics and I agree with it. I have discussed the assessment and plan with the resident. I have reviewed the medications and the last labs. Pt is confused and may have sepsis. He has BC and UCx pending. Pt is on Coumadin for Afib. Pt is on Lipitor for dyslipidemia. Daughter is updated.
[2018-08-08 13:27] LABS: INFLUENZA A B NEGATIVE FOR FLU A/B (NEGATIVE)
--- NOTE | 2018-08-08 14:55 | CP.PCM.PCO ---
Physician Communication Note - Physician Communication Note Physician Communication Note: fever, AMS, leukocytosis continue antibiotics, neurology consulted, MRI
--- NOTE | 2018-08-08 17:15 | CT ---
Date of service: 08/08/2018 PROCEDURE: CT HEAD WITHOUT CONTRAST. HISTORY: r/o CVA COMPARISON: Comparison is made to the previous study dated 08/07/2018 comparison is also made with the previous MRI of the brain TECHNIQUE: Axial computed tomography images were obtained through the head/brain without intravenous contrast. Radiation dose: Total exam DLP = 830.27 mGy-cm. This CT exam was performed using one or more of the following dose reduction techniques: Automated exposure control, adjustment of the mA and/or kV according to patient size, and/or use of iterative reconstruction technique. FINDINGS: HEMORRHAGE: No intracranial hemorrhage. BRAIN: Again noted is focal hypodensity at the right temporal parietal region adjacent to the right lateral ventricle which likely represent old infarct. Volume loss and chronic microvascular white matter ischemic disease are again noted. VENTRICLES: Unremarkable. No hydrocephalus. CALVARIUM: Unremarkable. PARANASAL SINUSES: Unremarkable as visualized. No significant inflammatory changes. MASTOID AIR CELLS: Unremarkable as visualized. No inflammatory changes. OTHER FINDINGS: None. IMPRESSION: No evidence of acute intracranial hemorrhage. Focal encephalomalacia at the posterior right temporal parietal lobe adjacent to the right lateral ventricle likely represent old infarct. Volume loss and chronic microvascular white matter ischemic disease.
--- NOTE | 2018-08-08 17:17 | MRI ---
Date of service: 08/08/2018 PROCEDURE: MRI BRAIN WITHOUT CONTRAST HISTORY: AMS COMPARISON: None available. TECHNIQUE: Multiplanar, multisequence MR images of the brain were obtained without intravenous contrast enhancement. FINDINGS: Examination is somewhat limited by patient motion artifact. HEMORRHAGE: None DWI: No evidence of an acute or early subacute infarction. BRAIN PARENCHYMA: Small area of focal encephalomalacia right posterior temporoparietal region possibly reflecting old infarct in the MCA distribution. Moderate patchy periventricular and deep white matter signal abnormality on FLAIR images consistent with microvascular white matter ischemic change. Mild diffuse age-appropriate cerebral atrophy. VENTRICLES: Unremarkable. No hydrocephalus. CRANIUM: Unremarkable. ORBITS: Grossly unremarkable. PARANASAL SINUSES/MASTOIDS: Clear VASCULAR SYSTEM: Skull base flow voids intact. OTHER FINDINGS: None. IMPRESSION: No evidence of acute infarct. 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 Age related atrophy and chronic white matter ischemic change.
[2018-08-08] MEDS ORDERED: Enoxaparin 60 mg Syringe SC STA (17:47)
[2018-08-08] MEDS: Meropenem IV 1 gm in NS 1 GM/50 ML BAG IVPB SCH (18:43)
[2018-08-08] MEDS: Vancomycin 1gm in NS 250ml 1 GM/250 ML BAG IVPB SCH (18:44)
--- NOTE | 2018-08-08 21:04 | CON ---
DATE: 08/08/2018 HISTORY OF PRESENT ILLNESS: This is an 88-year-old male with past medical history of VT, coronary artery disease, CABG, TIA, hypertension, and AV valve replacement, Crohn's disease, dyslipidemia, came to the hospital with headache. at the bedside, headache is better. Took Tylenol and now appears to be confused. CAT scan of the head was done which was reported negative for bleed or stroke. No nausea, no vomiting, no visual problem. PAST MEDICAL HISTORY: As above. PAST SURGICAL HISTORY: CABG. ALLERGIES: TO VACCINE. SOCIAL HISTORY: Ex-smoker. Does not drink. PHYSICAL EXAMINATION: VITAL SIGNS: Blood pressure 150/80. HEENT: Normocephalic and atraumatic. NECK: Supple. NEUROLOGIC: Awake, alert, and oriented x3. No aphasia. Cranial nerve II through XII were tested. Pupils reactive. Spontaneous movement of the extremities noted. Deep tendon reflexes 1+. Both plantars downgoing. Sensory appears intact. Cerebellar gait deferred. LABORATORY DATA: WBC 14, hemoglobin 13,5, hematocrit 40.8, and platelets 271. Sodium 134, potassium 4.2, chloride 100, CO2 of 26, glucose 154, BUN 16, and creatinine 0.9. IMPRESSION: Headache, possibly chronic tension headache, possibly from fever and the patient also has leukocytosis. Workup in progress possibly encephalopathy superimposed on headache and possible sepsis. Continue further management. We will follow up. Wagner Gentile MD
[2018-08-09] MEDS: Meropenem IV 1 gm in NS 1 GM/50 ML BAG IVPB SCH ×3 (05:40→21:40)
[2018-08-09] MEDS: Vancomycin 1gm in NS 250ml 1 GM/250 ML BAG IVPB SCH ×2 (05:40→18:25)
[2018-08-09] MEDS ORDERED: Meropenem IV 1 gm in NS 1 GM/50 ML BAG IVPB SCH ×2 (06:33→14:00)
--- NOTE | 2018-08-09 07:54 | CP.PCM.PCO ---
Physician Communication Note - Physician Communication Note Physician Communication Note: Fever continue antibiotics as per ID, work-up in progress.
--- NOTE | 2018-08-09 08:06 | CARD ---
APPROVED REPORT Date of service: 08/08/2018 EKG Measurement Heart [id number] [id number] <Conclusion> Normal sinus rhythm Low voltage QRS Left anterior fascicular block Anterolateral infarct, age undetermined Abnormal ECG
[2018-08-09 08:53] LABS: BASO # 0.02 K/mm3 (0.0-2.0); BASO % 0.1 % (0.0-3.0); HEMOGLOBIN 14.1 g/dL (14.0-18.0); LYMPH # 2.8 (1.2-3.4); LYMPH % 18.3 % (22.0-35.0); MEAN CELL VOLUME 89.6 fl (80.0-105.0); MEAN CORPUSCULAR HEMOGLOBIN 30.5 pg (25.0-35.0); MEAN CORPUSCULAR HGB CONC 34.1 g/dl (31.0-37.0); MEAN PLATELET VOLUME 9.6 fl (7.0-11.0); MONO # 1.7 (0.1-0.6); MONO % 11.2 % (1.0-6.0); RBC 4.62 10^6/uL (3.5-6.1); RED CELL DISTRIBUTION WIDTH 13.2 % (11.5-14.5); WHITE BLOOD COUNT 15.1 10^3/uL (4.5-11.0)
[2018-08-09 09:00] LABS: INR 2.27; PROTHROMBIN TIME 25.7 SECONDS (9.4-12.5)
[2018-08-09 09:07] LABS: ALBUMIN 4.3 g/dL (3.0-4.8); ALT/SGPT 12 U/L (7-56); AST/SGOT 54 U/L (17-59); BLOOD UREA NITROGEN 17 mg/dL (7-21); CALCIUM 9.3 mg/dL (8.4-10.5); GFR NON-AFRICAN AMERICAN > 60
[2018-08-09] MEDS ORDERED: Oseltamivir 6 MG/ML PO SCH (10:15)
[2018-08-09] MEDS: Oseltamivir 6 MG/ML PO SCH ×3 (11:44→20:13)
[2018-08-09] MEDS: Mesalamine ER Cap 500 MG PO SCH ×2 (11:46→20:13)
--- NOTE | 2018-08-09 12:35 | CON ---
DATE: 08/09/2018 REQUESTING PHYSICIAN: Dr. Marie. REASON FOR CONSULTATION: Altered mental status, short runs ventricular tachycardia. HISTORY: This is an 88-year-old man, well known to me with a history of coronary artery disease status post prior bypass surgery and PCI as well as aortic valve replacement, who was admitted with complaints of headache, nausea, vomiting, and altered mental status. He previously had been noted to have an elevated INR and his Coumadin was held. He was brought to the emergency room by his family. His mental status deteriorated. He has been minimally arousable at the present time. He has also had a fever of over 103 degrees. Blood cultures as far been negative. He is unable to provide any history. The rest history is obtained via the chart and his daughter. PAST MEDICAL HISTORY: His past history is notable for problems mentioned above. He has had prior TIAs. He does have a history of BPH, Crohn's disease, prior ascending thoracic aneurysm repair, hypertension, hyperlipidemia, congestive heart failure, diabetes, pneumonia. MEDICATIONS: His current medications include acyclovir, carvedilol 12.5 mg b.i.d., warfarin, Lipitor, meropenem, Pentasa, Plavix 75 mg daily, Proscar, Tamiflu, and vancomycin. ALLERGIES: He has had a reaction to pneumococcal vaccine in the past and may have had some adverse effect to anesthesia following a prior catheterization. SOCIAL HISTORY: He does not smoke or drink. He is , lives with his family. FAMILY HISTORY: Unremarkable. REVIEW OF SYSTEMS: A ten-point review of systems is difficult to obtain. PHYSICAL EXAMINATION: GENERAL: He is a very elderly man, who appears minimally responsive. His eyes do open and occasionally he tracks to voice, but does not follow commands. VITAL SIGNS: His blood pressure is 120/60 with a pulse of 80 in sinus rhythm with PVCs and APCs noted as well as short runs of nonsustained ventricular tachycardia. His respirations are 16. His current temperature is 103.8. HEENT: No JVD. CHEST: Bilateral rhonchi heard. HEART: PMI displaced laterally with systolic murmur at the left sternal border. ABDOMEN: The abdomen is soft somewhat distended. Bowel sounds are present. EXTREMITIES: No edema. SKIN: Warm and dry. PSYCHIATRIC: Unable to fully assess. NEUROLOGIC: Appears to move all four extremities, but otherwise unable to fully assess. DIAGNOSTIC DATA: White count is 15.1, hemoglobin and hematocrit 14.1 and 41.4 with a platelet count of 274,000. INR is 2.27, sodium of 131, potassium 4, BUN and creatinine 17 and 0.9, glucose 131. AST and ALT 54 and 12. Bilirubin is 1.3. Influenza serology is negative. Initial urine culture is negative. Blood cultures are preliminary report is negative. Chest x-ray reveals normal cardiac silhouette with poor sternotomy changes. Electrocardiogram reveals sinus rhythm with low voltage, prior anterolateral wall myocardial infarction cannot be excluded. MRI of the brain shows evidence of an old temporoparietal infarct of age-related atrophy. CT of the head is also consistent with that. IMPRESSION: 1. Altered mental status, likely due to sepsis. 2. Sepsis, source unclear. He does have a history of cholelithiasis in the past and consideration have been given to cholecystectomy; however, this was deferred. An intra-abdominal source of sepsis should be considered, given his presentation with nausea initially and a CT of the chest and abdomen is pending. 3. Coronary artery disease status post prior bypass surgery, aortic valve replacement and PCI, appears clinically stable at the present time. 4. Rest of problems as noted. RECOMMENDATIONS: 1. His current cardiac medications will continue for now. Monitor his INR with antibiotic use is advised. 2. We await the results of his CT and final blood cultures. 3. If source of fever is unclear and echocardiogram or transesophageal echocardiogram can be considered to exclude endocarditis, given his prosthetic valve showed no other source be identified. His condition is certainly guarded at this time. This was discussed at length with his and daughter at the bedside. Thank you for this consultation. We will be happy to follow along as needed. Imtiaz Peterson MD
--- NOTE | 2018-08-09 14:08 | CP.PCM.PN ---
<Gerardo Arce - Last Filed: 08/09/18 13:59> Subjective - Date & Time of Evaluation Date of Evaluation: 08/09/18 Time of Evaluation: 07:00 - Subjective Subjective: Medicine progress note for Dr. Marie: Patient was seen and examined at bedside. Patient has a fever overnight of 102F. He appears more lethargic and confused this morning. 12 point ROS limited due to change of mental status Objective - Vital Signs/Intake and Output Vital Signs (last 24 hours): Temp Pulse Resp BP Pulse Ox 102.8 F H 83 16 139/70 96 08/09/18 12:00 08/09/18 12:00 08/09/18 12:00 08/09/18 12:00 08/09/18 06:00 Intake and Output: 08/09/18 08/09/18 06:59 18:59 Intake Total 450 Balance 450 - Medications Medications: Current Medications Acetaminophen (Tylenol 325mg Tab) 650 mg PO Q4H PRN PRN Reason: Fever >100.4 F Acetaminophen (Tylenol 650 Mg Supp) 650 mg RC Q4H PRN PRN Reason: Fever >100.4 F Atorvastatin Calcium (Lipitor) 20 mg PO HS [facility] Last Admin: 08/08/18 21:28 Dose: 20 mg Carvedilol (Coreg) 6.25 mg PO BID [facility] Last Admin: 08/09/18 11:46 Dose: Not Given Clopidogrel Bisulfate (Plavix) 75 mg PO DAILY [facility] Last Admin: 08/09/18 11:46 Dose: Not Given Finasteride (Proscar) 5 mg PO DAILY [facility] Last Admin: 08/08/18 09:26 Dose: 5 mg Vancomycin HCl (Vancomycin 1gm) 1 gm in 250 mls @ 167 mls/hr IVPB Q12H [facility]; Protocol Last Admin: 08/09/18 05:40 Dose: 167 mls/hr Meropenem (Merrem Iv 1 Gm Premix) 1 gm in 50 mls @ 100 mls/hr IVPB Q8 [facility]; Protocol Acyclovir 600 mg/ Sodium (Chloride) 100 mls @ 100 mls/hr IV Q8 [facility]; Protocol Last Admin: 08/09/18 11:45 Dose: 100 mls/hr Mesalamine (Pentasa) 1,500 mg PO BID [facility] Last Admin: 08/09/18 11:46 Dose: Not Given Oseltamivir Phosphate (Tamiflu Susp) 75 mg PO BID [facility]; Protocol Warfarin Sodium (Coumadin) 4 mg PO 1800 [facility] Last Admin: 08/08/18 17:26 Dose: 4 mg - Labs Labs: 08/09/18 08:35 08/09/18 08:35 PT 25.7 SECONDS (9.4-12.5) H 08/09/18 08:35 INR 2.27 08/09/18 08:35 APTT 31.2 Seconds (26.9-38.3) 08/07/18 16:40 - Constitutional Appears: No Acute Distress - Head Exam Head Exam: ATRAUMATIC, NORMOCEPHALIC - Eye Exam Eye Exam: EOMI - ENT Exam ENT Exam: Mucous Membranes Moist - Respiratory Exam Respiratory Exam: Clear to Ausculation Bilateral. absent: Rales, Wheezes - Cardiovascular Exam Cardiovascular Exam: REGULAR RHYTHM, +S1, +S2 - GI/Abdominal Exam GI & Abdominal Exam: Soft. absent: Tenderness - Neurological Exam Neurological Exam: Alert, Awake, Oriented x3 - Psychiatric Exam Psychiatric exam: Normal Mood - Skin Skin Exam: Dry, Warm Assessment and Plan - Assessment and Plan (Free Text) Assessment: 1. Sepsis with leukocytosis and fever 2. Delirium 3. headaches 4. nausea vomiting 5. CAD with CABG and stent placement 6. Hypertension 7. BPH 8. History of TIA 9. Crohn's disease Patient was febrile overnight with T-max of 102F. Patient is more lethargic and confused this morning. 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 CT chest abdomen and pelvis is ordered today to rule out any pneumonia or intra-abdominal infection. Tylenol is ordered for his fevers. Patient was started on vancomycin and meropenem for the fevers as per infectious disease. Patient was also started on Tamiflu and acyclovir as per infectious disease. Patient is not currently complaining of headache and no other episodes of nausea or vomiting. Patient with a history of TIAs therefore we will continue Plavix. Patient also has history of valve replacement and therefore on Coumadin. Monitor INR daily. We will continue with Lipitor for his hyperlipidemia, continue with Coreg for his hypertension, continue with mesalamine for his Crohn's disease. Septic workup has been ordered and thus far negative. We will continue to monitor for any changes. Case and plan was reviewed and discussed with Dr. Steele <Reji Marie S - Last Filed: 08/12/18 20:14> Objective - Vital Signs/Intake and Output Vital Signs (last 24 hours): Temp Pulse Resp BP Pulse Ox 98.9 F 62 20 142/66 98 08/12/18 18:00 08/12/18 18:00 08/12/18 18:00 08/12/18 18:00 08/12/18 06:00 Intake and Output: 08/12/18 08/13/18 18:59 06:59 Intake Total 320 Balance 320 - Medications Medications: Current Medications Acetaminophen (Tylenol 325mg Tab) 650 mg PO Q4H PRN PRN Reason: Fever >100.4 F Last Admin: 08/11/18 21:07 Dose: 650 mg Acetaminophen (Tylenol 650 Mg Supp) 650 mg RC Q4H PRN PRN Reason: Fever >100.4 F Last Admin: 08/11/18 05:55 Dose: 650 mg Atorvastatin Calcium (Lipitor) 20 mg PO HS [facility] Last Admin: 08/11/18 21:06 Dose: 20 mg Carvedilol (Coreg) 6.25 mg PO BID [facility] Last Admin: 08/12/18 17:36 Dose: 6.25 mg Clopidogrel Bisulfate (Plavix) 75 mg PO DAILY [facility] Last Admin: 08/12/18 10:41 Dose: 75 mg Enoxaparin Sodium (Lovenox) 60 mg SC Q12H [facility]; Protocol Last Admin: 08/12/18 10:41 Dose: 60 mg Finasteride (Proscar) 5 mg PO DAILY [facility] Last Admin: 08/12/18 10:41 Dose: 5 mg Vancomycin HCl (Vancomycin 1gm) 1 gm in 250 mls @ 167 mls/hr IVPB Q12H [facility]; Protocol Last Admin: 08/12/18 19:09 Dose: 167 mls/hr Meropenem (Merrem Iv 1 Gm Premix) 1 gm in 50 mls @ 100 mls/hr IVPB Q8 [facility]; Protocol Last Admin: 08/12/18 15:02 Dose: 100 mls/hr Acyclovir 600 mg/ Sodium (Chloride) 100 mls @ 100 mls/hr IV Q8 [facility]; Protocol Last Admin: 08/12/18 15:02 Dose: 100 mls/hr Doxycycline Hyclate 100 mg/ (Sodium Chloride) 100 mls @ 100 mls/hr IVPB Q12 [facility]; Protocol Last Admin: 08/12/18 10:37 Dose: 100 mls/hr Ampicillin 2 gm/ Sodium (Chloride) 100 mls @ 200 mls/hr IVPB Q6 [facility]; Protocol Last Admin: 08/12/18 17:34 Dose: 200 mls/hr Sodium Chloride (Sodium Chloride 0.9%) 1,000 mls @ 50 mls/hr IV .Q20H [facility] Last Admin: 08/12/18 06:52 Dose: 50 mls/hr Mesalamine (Pentasa) 1,500 mg PO BID [facility] Last Admin: 08/12/18 17:35 Dose: 1,500 mg Pantoprazole Sodium (Protonix Ec Tab) 40 mg PO 0630 [facility] Warfarin Sodium (Coumadin) 5 mg PO 1800 [facility] Last Admin: 08/12/18 17:35 Dose: 5 mg - Labs Labs: 08/12/18 06:30 08/12/18 06:00 PT 18.5 SECONDS (9.4-12.5) H 08/12/18 06:30 INR 1.64 08/12/18 06:30 APTT 31.2 Seconds (26.9-38.3) 08/07/18 16:40 Assessment and Plan - Assessment and Plan (Free Text) Assessment: Pt seen and examined by me. This is a late entry. I have reviewed the note of the mobile paramedical examiner and I agree with it. I have discussed the assessment and plan with the resident. I have reviewed the medications and the last labs. Pt with sepsis and is on IV Abx. Deleium is present due to sepsis and fevers. He is on Plavix for TIA. He will be on Lipitor for dyslipidemia. He is on Mesalamie for Crohn's disease. Spoke to daughter to update him.
--- NOTE | 2018-08-09 14:13 | CP.PCM.CON ---
History of Present Illness - History of Present Illness History of Present Illness: 88 year old male with PMH of CAD S/P CABG S/P PCI, HTN, history of TIA, BPH, ascending aortic aneurysm S/P repair, S/P aortic valve replacement, Crohn's disease, dyslipidemia, came in to [facility] [place] complaining of headache that started 1-2 days prior to admission. He also had episodes of nausea and vomiting, and developed fevers on admission. Apparently there was no note of cough, no diarrhea, no shortness of breath or respiratory distress, on convulsions, no loss of consciousness. After the patient for CT head, he was noted to be febrile and became lethargic suddenly. The patient is currently lethargic, arousable by verbal and painful stimuli, answer simple questions but would fall back to sleep. Infectious Diseases consult is requested to further evaluate and manage. Review of Systems - Review of Systems All systems: reviewed and no additional remarkable complaints except (as per HPI) Past Patient History - Infectious Disease Hx of Infectious Diseases: None - Past Social History Smoking Status: Never Smoked - CARDIAC Hx Cardiac Disorders: Yes Hx Congestive Heart Failure: Yes - PULMONARY Hx Respiratory Disorders: Yes Hx Pneumonia: Yes - NEUROLOGICAL HX Cerebrovascular Accident: Yes (TIA's) - HEENT Hx HEENT Problems: Yes Hx Cataracts: Yes - RENAL Hx Chronic Kidney Disease: No - ENDOCRINE/METABOLIC Hx Endocrine Disorders: Yes Hx Diabetes Mellitus Type 2: Yes - HEMATOLOGICAL/ONCOLOGICAL Hx Blood Disorders: No - INTEGUMENTARY Hx Dermatological Problems: No - MUSCULOSKELETAL/RHEUMATOLOGICAL Hx Falls: No - GASTROINTESTINAL Hx Gastrointestinal Disorders: Yes Hx Crohn's Disease: Yes - GENITOURINARY/GYNECOLOGICAL Hx Genitourinary Disorders: Yes Hx Incontinence: Yes - PSYCHIATRIC Hx Emotional Abuse: No Hx Physical Abuse: No Hx Substance Use: No - SURGICAL HISTORY Hx Cardiac Catheterization: Yes Hx Coronary Stent: Yes Hx Open Heart Surgery: Yes Other/Comment: cataract surgery - ANESTHESIA Hx Anesthesia Reactions: No Hx Malignant Hyperthermia: No Meds Allergies/Adverse Reactions: Allergies Allergy/AdvReac Type Severity Reaction Status Date / Time pneumococcal vaccine Allergy Severe RASH Verified 08/24/17 04:08 Anesthetics - Alejandra Type- AdvReac ANAPHYLAXIS Verified 08/24/17 04:08 Parabens - Medications Medications: Current Medications Acetaminophen (Tylenol 650 Mg Supp) 650 mg RC Q6H PRN PRN Reason: Fever >100.4 F Last Admin: 08/09/18 05:29 Dose: 650 mg Atorvastatin Calcium (Lipitor) [address] [facility] Last Admin: 08/08/18 21:28 Dose: 20 mg Carvedilol (Coreg) 6.[address] [facility] Last Admin: 08/08/18 17:24 Dose: 6.25 mg Clopidogrel Bisulfate (Plavix) [address] [facility] Last Admin: 08/08/18 09:26 Dose: 75 mg Finasteride (Proscar) 5 mg PO DAILY [facility] Last Admin: 08/08/18 09:26 Dose: 5 mg Vancomycin HCl (Vancomycin 1gm) 1 gm in 250 mls @ 167 mls/hr IVPB Q12H [facility]; Protocol Last Admin: 08/09/18 05:40 Dose: 167 mls/hr Meropenem (Merrem Iv 1 Gm Premix) 1 gm in 50 mls @ 100 mls/hr IVPB Q8 [facility]; Protocol Mesalamine (Pentasa) 1,[address] [facility] Last Admin: 08/08/18 17:24 Dose: 1,500 mg Warfarin Sodium (Coumadin) 4 mg PO 1800 [facility] Last Admin: 08/08/18 17:26 Dose: 4 mg Physical Exam - Constitutional Appears: Chronically Ill - Head Exam Head Exam: NORMAL INSPECTION - Respiratory Exam Respiratory Exam: Decreased Breath Sounds - Cardiovascular Exam Cardiovascular Exam: +S1, +S2 - GI/Abdominal Exam GI & Abdominal Exam: Soft. absent: Tenderness - Back Exam Back exam: absent: CVA tenderness (L), CVA tenderness (R) Results - Vital Signs Recent Vital Signs: Last Vital Signs Temp 102.3 F H 08/09/18 05:29 Pulse 90 08/09/18 06:00 Resp 19 08/09/18 06:00 BP 123/61 08/09/18 06:00 Pulse Ox 96 08/09/18 06:00 - Labs Result Diagrams: 08/09/18 08:35 08/09/18 08:35 Labs: Laboratory Results - last 24 hr 08/08/18 08/08/18 08/08/18 06:30 06:30 06:30 WBC 14.0 H RBC 4.49 Hgb 13.5 L Hct 40.8 L MCV 90.9 MCH 30.1 MCHC 33.1 RDW 13.2 Plt Count 271 MPV 9.5 PT 17.7 H INR 1.57 Sodium 134 Potassium 4.2 Chloride 100 Carbon Dioxide 26 Anion Gap 12 BUN 16 Creatinine 0.9 Est GFR ( Amer) > 60 Est GFR (Non-Af Amer) > 60 Random Glucose 154 H Hemoglobin A1c Calcium 9.6 Total Bilirubin 1.0 AST 50 ALT 8 Alkaline Phosphatase 70 Total Protein 8.2 Albumin 4.3 Globulin 3.9 Albumin/Globulin Ratio 1.1 Triglycerides Cholesterol LDL Cholesterol Direct HDL Cholesterol Procalcitonin Free T4 TSH 3rd Generation Influenza Typ A,B (EIA) RSV Antigen 08/08/18 08/08/18 08/08/18 10:00 10:00 11:18 WBC RBC Hgb Hct MCV MCH MCHC RDW Plt Count MPV PT INR Sodium Potassium Chloride Carbon Dioxide Anion Gap BUN Creatinine Est GFR ( Amer) Est GFR (Non-Af Amer) Random Glucose Hemoglobin A1c 5.8 Calcium Total Bilirubin AST ALT Alkaline Phosphatase Total Protein Albumin Globulin Albumin/Globulin Ratio Triglycerides 132 Cholesterol 122 L LDL Cholesterol Direct 66 HDL Cholesterol 24 L Procalcitonin Free T4 1.08 TSH 3rd Generation 0.69 Influenza Typ A,B (EIA) RSV Antigen 08/08/18 08/08/18 13:00 13:00 WBC RBC Hgb Hct MCV MCH MCHC RDW Plt Count MPV PT INR Sodium Potassium Chloride Carbon Dioxide Anion Gap BUN Creatinine Est GFR ( Amer) Est GFR (Non-Af Amer) Random Glucose Hemoglobin A1c Calcium Total Bilirubin AST ALT Alkaline Phosphatase Total Protein Albumin Globulin Albumin/Globulin Ratio Triglycerides Cholesterol LDL Cholesterol Direct HDL Cholesterol Procalcitonin < 0.05 L Free T4 TSH 3rd Generation Influenza Typ A,B (EIA) Negative for flu a/b RSV Antigen Negative Assessment & Plan - Assessment and Plan (Free Text) Plan: Assessment Systemic inflammatory response syndrome, with fevers, consider sepsis but source not clear yet, need to rule out meningoencephalitis, R/O intra-abdominal infection CAD S/P CABG S/P PCI HTN history of TIA BPH ascending aortic aneurysm S/P repair S/P aortic valve replacement Crohn's disease dyslipidemia Plan Started Vancomycin, Merrem and added Acyclovir; reviewed CXR which does not show infiltrates will await CT C/A/P would recommend lumbar puncture for CSF analysis especially if CT scan does not show source of fevers - reached out to Dr. Herrera's team about this will monitor clinically prognosis is guarded
--- NOTE | 2018-08-09 16:44 | PCM.EEG ---
Electroencephalogram Report - Electroencephalogram Report Procedure Date: 08/09/18 Medication: Lipitor, Meropenem, Warfarin. Interpretation: . Technical Information: This was a 16-channel EEG, 1-channel EKG routine EEG performed using ralali equipment. Electrodes were applied using the 10/20 international placement system. Start; 12;39 End; 13;24 Total 43 min. Clinical Information:Alter mental status EEG Details During the entire study the EEG showed asymmetry between the 2 hemispheres with the right being more attenuated and slower, there was not discernible normal awake EEG architecture, the tracing showed diffuse bilateral attenuation with frequencies in the 6 to 7 Hz mainly on the left, slower and more attenuated on the right, there was moderate reactivity of the EEG. Drowsiness not seen, sleep not seen, however when he was not stimulated the EEG showed diffuse bilateral 4 to5 hz slowing. Hyperventilation was not performed. Photic stimulation was not performed. Interictal activity; none Focal abnormality; none Impression: This is an abnormal EEG record that demonstrate the presence of moderate non specific diffuse disturbance of cortical activity, this is keeping with a diffuse caldwell matter dysfunction, these findings re not specific. Findings are also in keeping with a focal cortical abnormality involving the right hemisphere in keeping with a structural abnormality in the same area, these should be correlated with the patient's brain imaging. No seizures. Patient is not in status epilepticus.
--- NOTE | 2018-08-09 16:53 | CT ---
Date of service: 08/09/2018 PROCEDURE: CT Chest, Abdomen and Pelvis without intravenous contrast HISTORY: r/p pneumonia COMPARISON: 07/07/2017 TECHNIQUE: Radiation dose: Total exam DLP = 986.49 mGy-cm. This CT exam was performed using one or more of the following dose reduction techniques: Automated exposure control, adjustment of the mA and/or kV according to patient size, and/or use of iterative reconstruction technique. FINDINGS: CT CHEST WITHOUT CONTRAST: LUNGS: There is a 9 x 17 mm nodule in the right lung apex. This is unchanged compared to 04/11/2017. Nodular infiltrates are also seen in the periphery of the left upper lobe similar increased from previous study. MEDIASTINUM: The ascending aorta is dilated measuring 5.4 cm. This is unchanged. The descending aorta is 3.3 cm. LYMPH NODES: Unremarkable. PLEURA: Unremarkable. No pneumothorax. No pleural fluid. BONES: Unremarkable. OTHER FINDINGS: None. CT ABDOMEN AND PELVIS: LIVER: Unremarkable. No gross lesion or ductal dilatation. GALLBLADDER AND BILE DUCTS: Gallstones PANCREAS: Unremarkable. No gross lesion or ductal dilatation. SPLEEN: Unremarkable. ADRENALS: Unremarkable. No mass. KIDNEYS AND URETERS: Unremarkable. No hydronephrosis. No solid mass. VASCULATURE: Aortic calcification Unremarkable. No aortic aneurysm. BOWEL: Unremarkable. No obstruction. No gross mural thickening. Severe diverticulosis of the sigmoid colon APPENDIX: Normal appendix. PERITONEUM: Unremarkable. No free fluid. No free air. LYMPH NODES: Unremarkable. No enlarged lymph nodes. BLADDER: Unremarkable. REPRODUCTIVE: Enlarged prostate measuring 6 cm transversely BONES: Chronic compression fracture of T12. Previous vertebroplasty L5 OTHER FINDINGS: None. IMPRESSION: There is a 9 x 17 mm nodule in the right lung apex. This is unchanged compared to 04/11/2017. Nodular infiltrates are also seen in the periphery of the left upper lobe increased from previous study. The ascending aorta is dilated measuring 5.4 cm. This is unchanged. The descending aorta is 3.3 cm.
[2018-08-09] MEDS: Dextrose 5%/0.9% NS 1,000 ML IV SCH (18:25)
[2018-08-10] MEDS: Meropenem IV 1 gm in NS 1 GM/50 ML BAG IVPB SCH ×3 (05:10→21:01)
[2018-08-10] MEDS: Vancomycin 1gm in NS 250ml 1 GM/250 ML BAG IVPB SCH ×2 (06:56→18:31)
--- NOTE | 2018-08-10 07:10 | CARD ---
APPROVED REPORT Date of service: 08/09/2018 EXAM: Two-dimensional and M-mode echocardiogram with Doppler and color Doppler. INDICATION FEVER/MECHANICAL VALVE 2D DIMENSIONS Left Atrium (2D)3.8 (1.6-4.0cm)IVSd0.9 (0.7-1.1cm) LVDd5.0 (3.9-5.9cm)PWd1.1 (0.7-1.1cm) M-Mode DIMENSIONS Aortic Root4.00 (2.2-3.7cm)Aortic Cusp Exc.1.40 (1.5-2.0cm) Aortic Valve AoV Peak Dbgyyetj191.0cm/sAoV VTI43.7cmAO Peak GR.16mmHg LVOT Peak Yuzhyqso526.0cm/sLVOT VTI21.90cmAO Mean GR.10mmHg Mitral Valve MV E Lkhgquim89.0cm/sMV A Evislgwa50.9cm/sE/A ratio0.8 TDI Lateral E' Peak V11.30cm/sMedial E' Peak V5.26cm/sE/Lateral E'6.3 E/Medial E'13.5 Pulmonary Valve PV Peak Xstdbpau032.0cm/sPV Peak Grad.4mmHg Tricuspid Valve TR Peak Wuxxwsfk303de/sRAP [id number] Peak Gr.33mmHg [id number] LEFT VENTRICLE The left ventricle is normal size. There is normal left ventricular wall thickness. The systolic function is severely impaired. Apical akinesis and severe anteroseptal hypokinesis noted. RIGHT VENTRICLE The right ventricle is normal size. The right ventricular systolic function is normal. ATRIA The left atrium size is normal. The right atrium size is normal. The interatrial septum is intact with no evidence for an atrial septal defect. AORTIC VALVE There are normal prosthetic aortic valve gradients. There is a bioprosthetic aortic valve prosthesis. MITRAL VALVE Mitral annular calcification is moderate. Mitral regurgitation is mild to moderate. TRICUSPID VALVE The tricuspid valve is normal in structure. There is moderate tricuspid regurgitation. PULMONIC VALVE The pulmonary valve is normal in structure. GREAT VESSELS The aortic root is normal in size. The IVC is normal in size and collapses >50% with inspiration. PERICARDIAL EFFUSION There is no pleural effusion. There is no pericardial effusion. <Conclusion> Normal chamber size. Severely reduced LV systolic function with apical akinesis and severe anteroseptal hypokinesis noted. Normally functioning aortic valve bioprosthesis. Mild to moderate MR. Moderate TR. No obvious vegetaton seen, but if clinical suspicion persists, consider FRANCINE imaging.
[2018-08-10 08:06] LABS: BASO # 0.02 K/mm3 (0.0-2.0); BASO % 0.1 % (0.0-3.0); EOS % 0.2 % (1.5-5.0); HEMOGLOBIN 16.5 g/dL (14.0-18.0); LYMPH # 3.2 (1.2-3.4); LYMPH % 18.4 % (22.0-35.0); MEAN CELL VOLUME 89.9 fl (80.0-105.0); MEAN CORPUSCULAR HEMOGLOBIN 30.7 pg (25.0-35.0); MEAN CORPUSCULAR HGB CONC 34.2 g/dl (31.0-37.0); MEAN PLATELET VOLUME 9.8 fl (7.0-11.0); MONO # 2.5 (0.1-0.6); MONO % 14.4 % (1.0-6.0); RBC 5.37 10^6/uL (3.5-6.1); RED CELL DISTRIBUTION WIDTH 13.2 % (11.5-14.5); WHITE BLOOD COUNT 17.2 10^3/uL (4.5-11.0)
[2018-08-10 08:09] LABS: INR 1.89; PROTHROMBIN TIME 21.4 SECONDS (9.4-12.5)
[2018-08-10 08:23] LABS: ALB/GLOB RATIO 0.9 (1.1-1.8); ALBUMIN 4.2 g/dL (3.0-4.8); ALT/SGPT 14 U/L (7-56); AST/SGOT 52 U/L (17-59); BLOOD UREA NITROGEN 19 mg/dL (7-21); CALCIUM 9.4 mg/dL (8.4-10.5); GFR NON-AFRICAN AMERICAN > 60
--- NOTE | 2018-08-10 08:29 | CP.PCM.PN ---
<Gerardo Arce - Last Filed: 08/10/18 09:32> Subjective - Date & Time of Evaluation Date of Evaluation: 08/10/18 Time of Evaluation: 07:10 - Subjective Subjective: Medicine progress note for Dr. Marie: Patient was seen and examined at bedside. Patient with consistent fevers Tmax 103.8F. He appears more responsive however still lethargic. 12 point ROS limited due to change of mental status Objective - Vital Signs/Intake and Output Vital Signs (last 24 hours): Temp Pulse Resp BP Pulse Ox 100.8 F H 78 17 143/75 98 08/10/18 06:00 08/10/18 06:00 08/10/18 06:00 08/10/18 06:00 08/10/18 06:00 Intake and Output: 08/10/18 08/10/18 06:59 18:59 Intake Total 0 990 Balance 0 990 - Medications Medications: Current Medications Acetaminophen (Tylenol 325mg Tab) 650 mg PO Q4H PRN PRN Reason: Fever >100.4 F Acetaminophen (Tylenol 650 Mg Supp) 650 mg RC Q4H PRN PRN Reason: Fever >100.4 F Last Admin: 08/10/18 05:38 Dose: 650 mg Atorvastatin Calcium (Lipitor) 20 mg PO HS [facility] Last Admin: 08/09/18 21:39 Dose: Not Given Carvedilol (Coreg) 6.25 mg PO BID [facility] Last Admin: 08/09/18 20:13 Dose: Not Given Clopidogrel Bisulfate (Plavix) 75 mg PO DAILY [facility] Last Admin: 08/09/18 11:46 Dose: Not Given Finasteride (Proscar) 5 mg PO DAILY [facility] Last Admin: 08/09/18 16:49 Dose: Not Given Vancomycin HCl (Vancomycin 1gm) 1 gm in 250 mls @ 167 mls/hr IVPB Q12H [facility]; Protocol Last Admin: 08/10/18 06:56 Dose: 167 mls/hr Meropenem (Merrem Iv 1 Gm Premix) 1 gm in 50 mls @ 100 mls/hr IVPB Q8 [facility]; Protocol Last Admin: 08/10/18 05:10 Dose: 100 mls/hr Acyclovir 600 mg/ Sodium (Chloride) 100 mls @ 100 mls/hr IV Q8 [facility]; Protocol Last Admin: 08/10/18 05:49 Dose: 100 mls/hr Dextrose/Sodium Chloride (Dextrose 5%/0.9% Ns 1000 Ml) 1,000 mls @ 50 mls/hr IV .Q20H [facility] Last Admin: 08/09/18 18:25 Dose: 50 mls/hr Doxycycline Hyclate 100 mg/ (Sodium Chloride) 100 mls @ 100 mls/hr IVPB Q12 [facility]; Protocol Last Admin: 08/10/18 00:09 Dose: 100 mls/hr Ampicillin 2 gm/ Sodium (Chloride) 100 mls @ 200 mls/hr IVPB Q6 [facility]; Protocol Mesalamine (Pentasa) 1,500 mg PO BID [facility] Last Admin: 08/09/18 20:13 Dose: Not Given Oseltamivir Phosphate (Tamiflu Susp) 75 mg PO BID [facility]; Protocol Last Admin: 08/09/18 20:13 Dose: Not Given Warfarin Sodium (Coumadin) 4 mg PO 1800 [facility] Last Admin: 08/09/18 20:13 Dose: Not Given - Labs Labs: 08/10/18 07:30 08/10/18 07:30 PT 21.4 SECONDS (9.4-12.5) H 08/10/18 07:30 INR 1.89 08/10/18 07:30 APTT 31.2 Seconds (26.9-38.3) 08/07/18 16:40 - Constitutional Appears: No Acute Distress - Head Exam Head Exam: ATRAUMATIC, NORMOCEPHALIC - Eye Exam Eye Exam: EOMI - Respiratory Exam Respiratory Exam: Clear to Ausculation Bilateral. absent: Rales, Rhonchi, Wheezes - Cardiovascular Exam Cardiovascular Exam: RRR, +S1, +S2 - GI/Abdominal Exam GI & Abdominal Exam: Soft. absent: Tenderness - Extremities Exam Extremities Exam: absent: Calf Tenderness, Pedal Edema - Neurological Exam Neurological Exam: Altered, Awake - Skin Skin Exam: Dry, Warm Assessment and Plan - Assessment and Plan (Free Text) Assessment: 1. Sepsis with leukocytosis and fever 2. Delirium 3. headaches 4. nausea vomiting 5. CAD with CABG and stent placement 6. Hypertension 7. BPH 8. History of TIA 9. Crohn's disease Patient with consistent fevers T-max of 103.8F. CTAP showed A 9 x 17 mm nodule in the right lung, nodular infiltrates in the periphery of the left upper lobe. And a thoracic aortic aneurysm that is unchanged from prior. EEG was performed and showed no active seizures. Follow-up neurology recommendations. 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 CT chest abdomen and pelvis is ordered today to rule out any pneumonia or intra-abdominal infection. Tylenol is ordered for his fevers. Patient is on vancomycin, meropenem, doxy, Tamiflu and acyclovir as per ID. ID also recommended a spinal lumbar puncture tap however the patient's daughter does not wish to have any invasive procedures done at this time. Patient is not currently complaining of headache and no other episodes of nausea or vomiting. Patient with a history of TIAs therefore we will continue Plavix. Patient also has history of valve replacement and therefore on Coumadin. Monitor INR daily. We will continue with Lipitor for his hyperlipidemia, continue with Coreg for his hypertension, continue with mesalamine for his Croh n's disease. Septic workup has been ordered and thus far negative. We will continue to monitor for any changes. Case and plan was reviewed and discussed with Dr. Steele <Reji Marie S - Last Filed: 08/12/18 10:47> Objective - Vital Signs/Intake and Output Vital Signs (last 24 hours): Temp Pulse Resp BP Pulse Ox 98.4 F 61 20 133/62 98 08/12/18 06:00 08/12/18 06:00 08/12/18 06:00 08/12/18 06:00 08/12/18 06:00 Intake and Output: 08/12/18 08/12/18 06:59 18:59 Intake Total 0 Output Total 1200 Balance -1200 - Medications Medications: Current Medications Acetaminophen (Tylenol 325mg Tab) 650 mg PO Q4H PRN PRN Reason: Fever >100.4 F Last Admin: 08/11/18 21:07 Dose: 650 mg Acetaminophen (Tylenol 650 Mg Supp) 650 mg RC Q4H PRN PRN Reason: Fever >100.4 F Last Admin: 08/11/18 05:55 Dose: 650 mg Atorvastatin Calcium (Lipitor) 20 mg PO HS [facility] Last Admin: 08/11/18 21:06 Dose: 20 mg Carvedilol (Coreg) 6.25 mg PO BID [facility] Last Admin: 08/11/18 17:47 Dose: 6.25 mg Clopidogrel Bisulfate (Plavix) 75 mg PO DAILY [facility] Last Admin: 08/11/18 11:25 Dose: 75 mg Enoxaparin Sodium (Lovenox) 60 mg SC Q12H [facility]; Protocol Last Admin: 08/11/18 21:07 Dose: 60 mg Finasteride (Proscar) 5 mg PO DAILY [facility] Last Admin: 08/11/18 11:25 Dose: 5 mg Vancomycin HCl (Vancomycin 1gm) 1 gm in 250 mls @ 167 mls/hr IVPB Q12H [facility]; Protocol Last Admin: 08/12/18 06:43 Dose: 167 mls/hr Meropenem (Merrem Iv 1 Gm Premix) 1 gm in 50 mls @ 100 mls/hr IVPB Q8 [facility]; Protocol Last Admin: 08/12/18 06:44 Dose: 100 mls/hr Acyclovir 600 mg/ Sodium (Chloride) 100 mls @ 100 mls/hr IV Q8 [facility]; Protocol Last Admin: 08/12/18 05:35 Dose: 100 mls/hr Doxycycline Hyclate 100 mg/ (Sodium Chloride) 100 mls @ 100 mls/hr IVPB Q12 [facility]; Protocol Last Admin: 08/11/18 22:05 Dose: 100 mls/hr Ampicillin 2 gm/ Sodium (Chloride) 100 mls @ 200 mls/hr IVPB Q6 [facility]; Protocol Last Admin: 08/12/18 05:04 Dose: 200 mls/hr Sodium Chloride (Sodium Chloride 0.9%) 1,000 mls @ 50 mls/hr IV .Q20H [facility] Last Admin: 08/12/18 06:52 Dose: 50 mls/hr Mesalamine (Pentasa) 1,500 mg PO BID [facility] Last Admin: 08/11/18 17:49 Dose: 1,500 mg Warfarin Sodium (Coumadin) 4 mg PO 1800 [facility] Last Admin: 08/10/18 18:01 Dose: Not Given - Labs Labs: 08/12/18 06:30 08/12/18 06:00 PT 18.5 SECONDS (9.4-12.5) H 08/12/18 06:30 INR 1.64 08/12/18 06:30 APTT 31.2 Seconds (26.9-38.3) 08/07/18 16:40 Assessment and Plan - Assessment and Plan (Free Text) Assessment: Pt seen and examined by me. This is a late entry. I have reviewed the note of the medical front desk specialist and I agree with it. I have discussed the assessment and plan with the resident. I have reviewed the medications and the last labs.Pt with sepsis and is on IV Abx. Spoke to family (daughter) and went over the plan of care. Unknown cause of the fevers. Pt with Delerium. Pt with Lipitor for dyslipidemia.
[2018-08-10] MEDS: Mesalamine ER Cap 500 MG PO SCH ×2 (10:07→18:02)
[2018-08-10] MEDS: Oseltamivir 6 MG/ML PO SCH (10:07)
--- NOTE | 2018-08-10 10:25 | PN ---
DATE: 08/10/2018 SUBJECTIVE: The patient is seen lying in bed, on telemetry. He is seen in the presence of his daughter. He is extremely somnolent. He is arousable and answers questions with marked prodding very slowly. He was febrile to 103 last evening. CURRENT MEDICATIONS: Include acyclovir, ampicillin doxycycline, meropenem, and vancomycin. His oral medications have been withheld. OBJECTIVE: GENERAL: He is a very elderly man who is extremely somnolent, but arousable. VITAL SIGNS: His blood pressure is 140/76 with pulse of 78 and currently in sinus rhythm, respirations are 16, current temperature is 100.8. HEENT: No JVD. NECK: Appears supple. CHEST: Few scattered rhonchi heard. HEART: PMI displaced laterally with a systolic murmur present at the left sternal border. ABDOMEN: Soft. Bowel sounds are present. EXTREMITIES: No edema. DIAGNOSTIC DATA: White count 17.2, hemoglobin and hematocrit 16.5 and 48.3 with platelet count of 229,000. INR is 1.89, potassium 3.9. BUN and creatinine 19 and 0.8. Blood cultures remain negative. Echocardiogram was a technically difficult study revealing normal chamber size, the LV systolic function was severely reduced with apical akinesis and severe anteroseptal hypokinesis. The prosthetic aortic valve appears to be functioning normally, no vegetation was seen, [id number] mitral regurgitation and moderate tricuspid regurgitation were noted. 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 IMPRESSION: 1. Altered mental status with apparent sepsis, exact source unclear. 2. Coronary artery disease status post prior bypass surgery, aortic valve replacement, and prior percutaneous coronary intervention, appears stable at the present time. 3. Severe left ventricular systolic dysfunction. 4. Paroxysmal atrial fibrillation. 5. Rest of problems as noted. RECOMMENDATIONS: His current management should continue for now. If he is unable to take oral anticoagulation, Lovenox can be resumed as needed for anticoagulation. If no other clear source of infection is seen, a transesophageal echocardiogram can be considered at some point in time; however, his daughter is reluctant to proceed with this. A lumbar puncture was discussed with her as well and she also would defer this not be performed and continue with empiric antibiotic therapy. We will continue to follow and make further recommendation as appropriate. Imtiaz Peterson MD
--- NOTE | 2018-08-10 12:22 | CP.PCM.PN ---
Subjective - Date & Time of Evaluation Date of Evaluation: 08/10/18 Time of Evaluation: 09:35 - Subjective Subjective: Still with fevers but a little more awake today, still lethargic but not as somnolent as yesterday, no diarrhea, no headache as per patient, answers simple questions. Objective - Vital Signs/Intake and Output Vital Signs (last 24 hours): Temp Pulse Resp BP Pulse Ox 102.8 F H 83 16 139/70 96 08/09/18 12:00 08/09/18 12:00 08/09/18 12:00 08/09/18 12:00 08/09/18 06:00 Intake and Output: 08/09/18 08/09/18 06:59 18:59 Intake Total 450 Balance 450 - Medications Medications: Current Medications Acetaminophen (Tylenol 325mg Tab) 650 mg PO Q4H PRN PRN Reason: Fever >100.4 F Acetaminophen (Tylenol 650 Mg Supp) 650 mg RC Q4H PRN PRN Reason: Fever >100.4 F Atorvastatin Calcium (Lipitor) 20 mg PO HS [facility] Last Admin: 08/08/18 21:28 Dose: 20 mg Carvedilol (Coreg) 6.25 mg PO BID [facility] Last Admin: 08/09/18 11:46 Dose: Not Given Clopidogrel Bisulfate (Plavix) 75 mg PO DAILY [facility] Last Admin: 08/09/18 11:46 Dose: Not Given Finasteride (Proscar) 5 mg PO DAILY [facility] Last Admin: 08/08/18 09:26 Dose: 5 mg Vancomycin HCl (Vancomycin 1gm) 1 gm in 250 mls @ 167 mls/hr IVPB Q12H [facility]; Protocol Last Admin: 08/09/18 05:40 Dose: 167 mls/hr Meropenem (Merrem Iv 1 Gm Premix) 1 gm in 50 mls @ 100 mls/hr IVPB Q8 [facility]; Protocol Acyclovir 600 mg/ Sodium (Chloride) 100 mls @ 100 mls/hr IV Q8 [facility]; Protocol Last Admin: 08/09/18 11:45 Dose: 100 mls/hr Mesalamine (Pentasa) 1,500 mg PO BID [facility] Last Admin: 08/09/18 11:46 Dose: Not Given Oseltamivir Phosphate (Tamiflu Susp) 75 mg PO BID [facility]; Protocol Warfarin Sodium (Coumadin) 4 mg PO 1800 [facility] Last Admin: 08/08/18 17:26 Dose: 4 mg - Labs Labs: 08/09/18 08:35 08/09/18 08:35 PT 25.7 SECONDS (9.4-12.5) H 08/09/18 08:35 INR 2.27 08/09/18 08:35 APTT 31.2 Seconds (26.9-38.3) 08/07/18 16:40 - Constitutional Appears: Chronically Ill - Head Exam Head Exam: NORMAL INSPECTION - ENT Exam ENT Exam: Mucous Membranes Moist - Neck Exam Neck Exam: absent: Meningismus - Respiratory Exam Respiratory Exam: Decreased Breath Sounds - Cardiovascular Exam Cardiovascular Exam: +S1, +S2 - GI/Abdominal Exam GI & Abdominal Exam: Soft. absent: Tenderness Assessment and Plan - Assessment and Plan (Free Text) Plan: Assessment Systemic inflammatory response syndrome, with fevers, consider sepsis due to left sided HCAP, need to rule out meningoencephalitis CAD S/P CABG S/P PCI HTN history of TIA BPH ascending aortic aneurysm S/P repair S/P aortic valve replacement Crohn's disease dyslipidemia history of spinal laminectomy Plan Started Vancomycin, Merrem day 3 and Acyclovir day 2 and added Ampicillin; reviewed CXR which does not show infiltrates reviewed CT C/A/P showing left sided nodular infiltrates would recommend lumbar puncture for CSF analysis - discussed with Dr. Herrera - daughter is refusing due history of spinal surgery will continue to monitor clinically serum Crypt Ag is negative prognosis is guarded
[2018-08-10] MEDS: AMPicillin 2 GM in Sodium Chloride 0.9% 100 ML IVPB SCH ×2 (12:57→17:55)
--- NOTE | 2018-08-10 13:57 | CP.PCM.PCO ---
Physician Communication Note - Physician Communication Note Physician Communication Note: family refused spinal tap. c/w conservative mx.
[2018-08-10] MEDS: Dextrose 5%/0.9% NS 1,000 ML IV SCH (18:02)
[2018-08-10] MEDS ORDERED: Sodium Chloride 0.9% 1,000 ML IV SCH (19:15)
[2018-08-11] MEDS: AMPicillin 2 GM in Sodium Chloride 0.9% 100 ML IVPB SCH ×4 (00:50→19:07)
[2018-08-11] MEDS: Meropenem IV 1 gm in NS 1 GM/50 ML BAG IVPB SCH ×3 (05:05→21:06)
[2018-08-11] MEDS: Vancomycin 1gm in NS 250ml 1 GM/250 ML BAG IVPB SCH ×2 (08:03→17:48)
[2018-08-11 08:35] LABS: BASO # 0.03 K/mm3 (0.0-2.0); BASO % 0.2 % (0.0-3.0); EOS # 0.3 (0.0-0.7); EOS % 2.3 % (1.5-5.0); HEMOGLOBIN 14.3 g/dL (14.0-18.0); LYMPH # 1.9 (1.2-3.4); LYMPH % 15.6 % (22.0-35.0); MEAN CELL VOLUME 90.3 fl (80.0-105.0); MEAN CORPUSCULAR HEMOGLOBIN 30.2 pg (25.0-35.0); MEAN CORPUSCULAR HGB CONC 33.5 g/dl (31.0-37.0); MEAN PLATELET VOLUME 9.8 fl (7.0-11.0); MONO # 1.1 (0.1-0.6); MONO % 8.8 % (1.0-6.0); RBC 4.73 10^6/uL (3.5-6.1); RED CELL DISTRIBUTION WIDTH 13.1 % (11.5-14.5); WHITE BLOOD COUNT 12.4 10^3/uL (4.5-11.0)
[2018-08-11 08:42] LABS: INR 1.88; PROTHROMBIN TIME 21.2 SECONDS (9.4-12.5)
[2018-08-11 09:01] LABS: ALBUMIN 3.8 g/dL (3.0-4.8); ALT/SGPT 15 U/L (7-56); AST/SGOT 52 U/L (17-59); BLOOD UREA NITROGEN 20 mg/dL (7-21); CALCIUM 8.8 mg/dL (8.4-10.5); GFR NON-AFRICAN AMERICAN > 60
--- NOTE | 2018-08-11 10:54 | PN ---
DATE: 08/11/2018 SUBJECTIVE: The patient is seen lying in bed on telemetry. He appears somewhat improved clinically. His fever curve has improved and a lumbar tap was advised; however, the family has refused. He remains on broad-spectrum antibiotics. He is lying in bed somnolent, but arousable. According to his daughter, he was fully conversant earlier in the morning. His mental status appears to wax and wane at this point in time. He remains n.p.o. due to concerns about swallowing and possible aspiration. CURRENT MEDICATIONS: Include; IV acyclovir, ampicillin, doxycycline, meropenem and vancomycin. His oral medications have not been administered because of swallowing concerns, this includes his warfarin. PHYSICAL EXAMINATION: GENERAL: He is a very elderly man who appears comfortable and somnolent. VITAL SIGNS: His blood pressure is 142/70 with pulse 76 in sinus and respirations are 16. His current temperature are 100.5 and that has been his highest fever in the past 24 hours as well. HEENT: No JVD. CHEST: Few scattered rhonchi heard. HEART: PMI displaced laterally with crisp valve sounds. ABDOMEN: Soft and nontender with normoactive bowel sounds. EXTREMITIES: No edema. DIAGNOSTIC DATA: White count 12.4, hemoglobin and hematocrit 14.3 and 42.7 with platelet count of 220,000. INR is 1.88 with PT 21.2. IMPRESSION: 1. Altered mental status felt likely secondary to sepsis. 2. Sepsis syndrome, source thus far unidentified. Remains on broad-spectrum antibiotics. 3. Coronary disease status post prior bypass surgery, aortic valve replacement and percutaneous coronary intervention all appear clinically stable at the present time. 4. History of prior transient ischemic attacks. 5. History of Crohn's disease. 6. Rest of problems as noted. RECOMMENDATIONS: Current management should continue for now. While he remains off warfarin, he will be placed on subcutaneous Lovenox for anticoagulant purposes given his prosthetic valve. Swallowing evaluation is needed. Further recommendations will be made based upon his clinical course and results of the above interventions. Thus far all blood cultures have been negative. We will continue to follow and make further recommendations as appropriate. Imtiaz Peterson MD
--- NOTE | 2018-08-11 11:00 | PN ---
DATE: 08/11/2018 SUBJECTIVE: The patient is more awake and alert this morning. He denies any headaches or dizziness. PHYSICAL EXAMINATION: VITAL SIGNS: Temperature is now is 100.5, pulse of 76, blood pressure 142/69, respirations 19. GENERAL: The patient is lying in bed, flat, comfortable. HEENT: No oral lesion. Anicteric sclerae. Moist mucosa. NECK: No JVD, adenopathy, or thyromegaly. CARDIOVASCULAR: S1 and S2, regular. No murmurs, rubs, or gallops. LUNGS: Clear to auscultation bilaterally. No wheeze, rales, or rhonchi. ABDOMEN: Bowel sounds are positive, soft, nontender and nondistended. EXTREMITIES: No cyanosis, clubbing or edema. LABORATORY DATA: A white count of 12.4, hemoglobin 14.3, creatinine is 0.8. ASSESSMENT: 1. Sepsis. 2. Fever. 3. Delirium. 4. Coronary artery disease status post coronary artery bypass graft. 5. Hypertension. 6. Benign prostatic hyperplasia. 7. Crohn's disease. 8. History of transient ischemic attack. PLAN: The patient is currently on ampicillin for antibiotics. He is on Coreg for his coronary disease. His Coumadin has been placed on hold. He is not able to swallow. He is on Lipitor for dyslipidemia. The patient is on Lovenox for his anticoagulation. The patient is on his mesalamine for his Crohn's disease. He is on IV fluids. I will decrease his IV fluids to 50 an hour. I did speak to the patient's daughter at the bedside to give an update. I also spoke with ID regarding the patient's antibiotics. We will continue the patient's acyclovir and vancomycin. The patient is being followed by Dr. Peterson as well. Reji Marie MD
[2018-08-11] MEDS: Mesalamine ER Cap 500 MG PO SCH ×2 (11:24→17:49)
[2018-08-11] MEDS: Enoxaparin 60 mg Syringe SC SCH ×2 (11:28→21:07)
--- NOTE | 2018-08-11 13:14 | CP.PCM.PN ---
Subjective - Date & Time of Evaluation Date of Evaluation: 08/11/18 Time of Evaluation: 10:10 - Subjective Subjective: Patient is more awake today, still with low grade fevers, answers simple questions, not in distress but is still weak and still not swallowing well. Objective - Vital Signs/Intake and Output Vital Signs (last 24 hours): Temp Pulse Resp BP Pulse Ox 100.5 F H 69 19 129/67 97 08/11/18 06:00 08/11/18 11:27 08/11/18 06:00 08/11/18 11:27 08/11/18 06:00 Intake and Output: 08/11/18 08/11/18 06:59 18:59 Intake Total 1250 Balance 1250 - Medications Medications: Current Medications Acetaminophen (Tylenol 325mg Tab) 650 mg PO Q4H PRN PRN Reason: Fever >100.4 F Acetaminophen (Tylenol 650 Mg Supp) 650 mg RC Q4H PRN PRN Reason: Fever >100.4 F Last Admin: 08/11/18 05:55 Dose: 650 mg Atorvastatin Calcium (Lipitor) 20 mg PO HS [facility] Last Admin: 08/10/18 21:23 Dose: Not Given Carvedilol (Coreg) 6.25 mg PO BID [facility] Last Admin: 08/11/18 11:27 Dose: 6.25 mg Clopidogrel Bisulfate (Plavix) 75 mg PO DAILY [facility] Last Admin: 08/11/18 11:25 Dose: 75 mg Enoxaparin Sodium (Lovenox) 60 mg SC Q12H [facility]; Protocol Last Admin: 08/11/18 11:28 Dose: 60 mg Finasteride (Proscar) 5 mg PO DAILY [facility] Last Admin: 08/11/18 11:25 Dose: 5 mg Vancomycin HCl (Vancomycin 1gm) 1 gm in 250 mls @ 167 mls/hr IVPB Q12H [facility]; Protocol Last Admin: 08/11/18 08:03 Dose: 167 mls/hr Meropenem (Merrem Iv 1 Gm Premix) 1 gm in 50 mls @ 100 mls/hr IVPB Q8 [facility]; Protocol Last Admin: 08/11/18 05:05 Dose: 100 mls/hr Acyclovir 600 mg/ Sodium (Chloride) 100 mls @ 100 mls/hr IV Q8 [facility]; Protocol Last Admin: 08/11/18 06:10 Dose: 100 mls/hr Doxycycline Hyclate 100 mg/ (Sodium Chloride) 100 mls @ 100 mls/hr IVPB Q12 [facility]; Protocol Last Admin: 08/11/18 11:25 Dose: 100 mls/hr Ampicillin 2 gm/ Sodium (Chloride) 100 mls @ 200 mls/hr IVPB Q6 [facility]; Protocol Last Admin: 08/11/18 11:24 Dose: 200 mls/hr Sodium Chloride (Sodium Chloride 0.9%) 1,000 mls @ 50 mls/hr IV .Q20H [facility] Mesalamine (Pentasa) 1,500 mg PO BID [facility] Last Admin: 08/11/18 11:24 Dose: 1,500 mg Warfarin Sodium (Coumadin) 4 mg PO 1800 [facility] Last Admin: 08/10/18 18:01 Dose: Not Given - Labs Labs: 08/11/18 08:26 08/11/18 08:26 PT 21.2 SECONDS (9.4-12.5) H 08/11/18 08:26 INR 1.88 08/11/18 08:26 APTT 31.2 Seconds (26.9-38.3) 08/07/18 16:40 - Constitutional Appears: Chronically Ill - Head Exam Head Exam: NORMAL INSPECTION - Respiratory Exam Respiratory Exam: Decreased Breath Sounds - Cardiovascular Exam Cardiovascular Exam: +S1, +S2 - GI/Abdominal Exam GI & Abdominal Exam: Soft. absent: Tenderness Assessment and Plan - Assessment and Plan (Free Text) Assessment: Assessment Systemic inflammatory response syndrome, with fevers, consider sepsis due to left sided HCAP, need to rule out meningoencephalitis, slowly improving CAD S/P CABG S/P PCI HTN history of TIA BPH ascending aortic aneurysm S/P repair S/P aortic valve replacement Crohn's disease dyslipidemia history of spinal laminectomy Plan Started Vancomycin, Merrem day 4 and Acyclovir day 3 and added Ampicillin; reviewed CXR which does not show infiltrates reviewed CT C/A/P showing left sided nodular infiltrates would recommend lumbar puncture for CSF analysis - discussed with Dr. Herrera - daughter is refusing due history of spinal surgery will continue to monitor clinically serum Crypt Ag is negative prognosis is guarded
[2018-08-11] MEDS: Sodium Chloride 0.9% 1,000 ML IV SCH (14:26)
[2018-08-12] MEDS: AMPicillin 2 GM in Sodium Chloride 0.9% 100 ML IVPB SCH ×4 (00:57→17:34)
[2018-08-12] MEDS: Vancomycin 1gm in NS 250ml 1 GM/250 ML BAG IVPB SCH ×2 (06:43→19:09)
[2018-08-12] MEDS: Meropenem IV 1 gm in NS 1 GM/50 ML BAG IVPB SCH ×3 (06:44→21:39)
[2018-08-12] MEDS: Sodium Chloride 0.9% 1,000 ML IV SCH (06:52)
[2018-08-12 07:00] LABS: BASO # 0.04 K/mm3 (0.0-2.0); BASO % 0.4 % (0.0-3.0); EOS # 0.4 (0.0-0.7); EOS % 3.3 % (1.5-5.0); HEMOGLOBIN 13.6 g/dL (14.0-18.0); LYMPH # 2.2 (1.2-3.4); LYMPH % 20.5 % (22.0-35.0); MEAN CELL VOLUME 91.9 fl (80.0-105.0); MEAN CORPUSCULAR HGB CONC 32.6 g/dl (31.0-37.0); MONO # 0.7 (0.1-0.6); MONO % 6.7 % (1.0-6.0); RBC 4.54 10^6/uL (3.5-6.1); RED CELL DISTRIBUTION WIDTH 13.3 % (11.5-14.5); WHITE BLOOD COUNT 10.5 10^3/uL (4.5-11.0)
[2018-08-12 07:08] LABS: INR 1.64; PROTHROMBIN TIME 18.5 SECONDS (9.4-12.5)
[2018-08-12 07:40] LABS: ALBUMIN 3.7 g/dL (3.0-4.8); ALT/SGPT 22 U/L (7-56); AST/SGOT 38 U/L (17-59); BLOOD UREA NITROGEN 15 mg/dL (7-21); GFR NON-AFRICAN AMERICAN > 60
--- NOTE | 2018-08-12 09:33 | PN ---
DATE: 08/12/2018 SUBJECTIVE: The patient is seen lying in bed on telemetry. He apparently was more appropriate yesterday, but is fairly somnolent this morning. He had some confusion overnight consistent with ing. He remains afebrile. CURRENT MEDICATIONS: Include acyclovir, ampicillin, carvedilol 6.25 mg twice a day, doxycycline, Lipitor, Lovenox, meropenem, Pentasa, Plavix 75 mg daily, Proscar. OBJECTIVE: GENERAL: He is a very elderly man who appears somnolent, but arousable. VITAL SIGNS: Blood pressure 130/60, pulse 60 and sinus respirations 16. He is afebrile. HEENT: No JVD. CHEST: Few scattered rhonchi heard. HEART: PMI displaced laterally with soft tones noted and a crisp valve sounds. ABDOMEN: Soft, nontender with normoactive bowel sounds. EXTREMITIES: No edema. DIAGNOSTIC DATA: Morning blood work is pending. Blood cultures remain negative. IMPRESSION: 1. Recent sepsis, source unclear. 2. Altered mental status appears secondary to sepsis syndrome. 3. Coronary artery disease status post prior bypass surgery aortic valve replacement and percutaneous coronary intervention and stable at present. 4. History of prior transient ischemic attacks. 5. History of Crohn's disease. RECOMMENDATIONS: Current medications will continue for now. Lumbar puncture has been refused by the family as he appears able to take oral thickened liquids with his medication, warfarin will be resumed today. Daily INR will be monitored. Further recommendations will be made based on his clinical course. We will follow along as needed. Imtiaz Peterson MD MTDD
[2018-08-12] MEDS: Mesalamine ER Cap 500 MG PO SCH ×2 (10:41→17:35)
[2018-08-12] MEDS: Enoxaparin 60 mg Syringe SC SCH ×2 (10:41→21:39)
--- NOTE | 2018-08-12 11:31 | CP.PCM.PN ---
Subjective - Date & Time of Evaluation Date of Evaluation: 08/12/18 Time of Evaluation: 10:25 - Subjective Subjective: More sleepy this morning but was awake all night, still had fever last night but none this morning, as per daughter a little more confused today compared to yesterday. Objective - Vital Signs/Intake and Output Vital Signs (last 24 hours): Temp Pulse Resp BP Pulse Ox 100.5 F H 69 19 129/67 97 08/11/18 06:00 08/11/18 11:27 08/11/18 06:00 08/11/18 11:27 08/11/18 06:00 Intake and Output: 08/11/18 08/11/18 06:59 18:59 Intake Total 1250 Balance 1250 - Medications Medications: Current Medications Acetaminophen (Tylenol 325mg Tab) 650 mg PO Q4H PRN PRN Reason: Fever >100.4 F Acetaminophen (Tylenol 650 Mg Supp) 650 mg RC Q4H PRN PRN Reason: Fever >100.4 F Last Admin: 08/11/18 05:55 Dose: 650 mg Atorvastatin Calcium (Lipitor) 20 mg PO HS [facility] Last Admin: 08/10/18 21:23 Dose: Not Given Carvedilol (Coreg) 6.25 mg PO BID [facility] Last Admin: 08/11/18 11:27 Dose: 6.25 mg Clopidogrel Bisulfate (Plavix) 75 mg PO DAILY [facility] Last Admin: 08/11/18 11:25 Dose: 75 mg Enoxaparin Sodium (Lovenox) 60 mg SC Q12H [facility]; Protocol Last Admin: 08/11/18 11:28 Dose: 60 mg Finasteride (Proscar) 5 mg PO DAILY [facility] Last Admin: 08/11/18 11:25 Dose: 5 mg Vancomycin HCl (Vancomycin 1gm) 1 gm in 250 mls @ 167 mls/hr IVPB Q12H [facility]; Protocol Last Admin: 08/11/18 08:03 Dose: 167 mls/hr Meropenem (Merrem Iv 1 Gm Premix) 1 gm in 50 mls @ 100 mls/hr IVPB Q8 [facility]; Prot ocol Last Admin: 08/11/18 05:05 Dose: 100 mls/hr Acyclovir 600 mg/ Sodium (Chloride) 100 mls @ 100 mls/hr IV Q8 [facility]; Protocol Last Admin: 08/11/18 06:10 Dose: 100 mls/hr Doxycycline Hyclate 100 mg/ (Sodium Chloride) 100 mls @ 100 mls/hr IVPB Q12 [facility]; Protocol Last Admin: 08/11/18 11:25 Dose: 100 mls/hr Ampicillin 2 gm/ Sodium (Chloride) 100 mls @ 200 mls/hr IVPB Q6 [facility]; Protocol Last Admin: 08/11/18 11:24 Dose: 200 mls/hr Sodium Chloride (Sodium Chloride 0.9%) 1,000 mls @ 50 mls/hr IV .Q20H [facility] Mesalamine (Pentasa) 1,500 mg PO BID [facility] Last Admin: 08/11/18 11:24 Dose: 1,500 mg Warfarin Sodium (Coumadin) 4 mg PO 1800 [facility] Last Admin: 08/10/18 18:01 Dose: Not Given - Labs Labs: 08/11/18 08:26 08/11/18 08:26 PT 21.2 SECONDS (9.4-12.5) H 08/11/18 08:26 INR 1.88 08/11/18 08:26 APTT 31.2 Seconds (26.9-38.3) 08/07/18 16:40 - Constitutional Appears: Chronically Ill - Head Exam Head Exam: NORMAL INSPECTION - Respiratory Exam Respiratory Exam: Decreased Breath Sounds - Cardiovascular Exam Cardiovascular Exam: +S1, +S2 - GI/Abdominal Exam GI & Abdominal Exam: Soft. absent: Tenderness Assessment and Plan - Assessment and Plan (Free Text) Plan: Assessment Systemic inflammatory response syndrome, with fevers, consider sepsis due to left sided HCAP, need to rule out meningoencephalitis, slowly improving CAD S/P CABG S/P PCI HTN history of TIA BPH ascending aortic aneurysm S/P repair S/P aortic valve replacement Crohn's disease dyslipidemia history of spinal laminectomy Plan Started Vancomycin, Merrem day 5 and Acyclovir day 4 and added Ampicillin; reviewed CXR which does not show infiltrates reviewed CT C/A/P showing left sided nodular infiltrates would recommend lumbar puncture for CSF analysis - discussed with Dr. Marie previously - daughter is refusing due history of spinal surgery will continue to monitor clinically serum Crypt Ag is negative prognosis is guarded follow up further recommendations of Neurology
--- NOTE | 2018-08-12 20:25 | PN ---
DATE: 08/12/2018 SUBJECTIVE: The patient is an 88-year-old, seen and examined, sitting in chair. Family is at the bedside. He is awake and alert but forgetful, able to tell his name and his daughter's name, but does not know where he is. Oral intake seems to be a little better. He is tolerating pureed diet. PHYSICAL EXAMINATION: VITAL SIGNS: He is afebrile. Pulse 63, respirations 18, blood pressure 165/84. LUNGS: Bilateral fair air flow, few occasional expiratory rhonchi and soft crackle in the upper lung region. HEART: S1 and S2 audible. ABDOMEN: Soft, nontender. No rebound. No guarding. NEUROLOGICAL: The patient is awake and alert but somewhat confused. LABORATORY DATA: WBC is 10.5, hemoglobin 13.6, hematocrit 41.7, platelets 212. PT 18.5, INR 1.67. Chemistry: Sodium 136, potassium 3.4, chloride 102, CO2 of 26, BUN 15, creatinine , blood sugar 108. Procalcitonin is 0.05. His blood culture and urine culture are negative. Flu test is negative. ASSESSMENT: 1. Status post sepsis, seems to be improving. Altered mental status, as per daughter, is better than before. 2. Coronary artery disease, status post open heart surgery. 3. Status post aortic valve replacement. 4. History of Crohn's disease. 5. Dementia. 6. Benign prostatic hypertrophy. PLAN: Currently, the patient is on ampicillin 2 g every 6 hours. He is being maintained on Coreg. His Coumadin level is relatively subtherapeutic. We will give him 5 mg of Coumadin daily. Follow up PT and INR in the a.m. Supplement potassium and follow up electrolytes in a.m. Encourage out of bed to chair. Continue him on doxycycline. He is on Lovenox 60 mg every 12 hours, meropenem 1 g every 8 hours. He is on mesalamine. He is on Plavix. He is on a small dose of IV fluids. He is on acyclovir. He is on Lovenox to cover for DVT prophylaxis. Saundra Echevarria MD
[2018-08-13] MEDS: AMPicillin 2 GM in Sodium Chloride 0.9% 100 ML IVPB SCH ×4 (00:26→18:16)
[2018-08-13] MEDS: Pantoprazole 40 mg EC Tab PO SCH (05:31)
[2018-08-13] MEDS: Vancomycin 1gm in NS 250ml 1 GM/250 ML BAG IVPB SCH ×2 (05:32→18:17)
[2018-08-13] MEDS: Meropenem IV 1 gm in NS 1 GM/50 ML BAG IVPB SCH ×3 (05:38→21:04)
--- NOTE | 2018-08-13 08:17 | CP.PCM.PN ---
<Gerardo Arce - Last Filed: 08/13/18 10:53> Subjective - Date & Time of Evaluation Date of Evaluation: 08/13/18 Time of Evaluation: 07:00 - Subjective Subjective: Medicine progress note for Dr. Marie: Patient was seen and examined at bedside. Patient is more responsive today. No fevers last 24 hours. 12 point ROS limited but performed and neg Objective - Vital Signs/Intake and Output Vital Signs (last 24 hours): Temp Pulse Resp BP Pulse Ox 98.4 F 67 20 145/63 97 08/13/18 06:00 08/13/18 06:00 08/13/18 06:00 08/13/18 06:00 08/13/18 06:00 Intake and Output: 08/13/18 08/13/18 06:59 18:59 Intake Total 1270 Balance 1270 - Medications Medications: Current Medications Acetaminophen (Tylenol 325mg Tab) 650 mg PO Q4H PRN PRN Reason: Fever >100.4 F Last Admin: 08/11/18 21:07 Dose: 650 mg Acetaminophen (Tylenol 650 Mg Supp) 650 mg RC Q4H PRN PRN Reason: Fever >100.4 F Last Admin: 08/11/18 05:55 Dose: 650 mg Atorvastatin Calcium (Lipitor) 20 mg PO HS [facility] Last Admin: 08/12/18 21:39 Dose: 20 mg Carvedilol (Coreg) 6.25 mg PO BID [facility] Last Admin: 08/12/18 17:36 Dose: 6.25 mg Clopidogrel Bisulfate (Plavix) 75 mg PO DAILY [facility] Last Admin: 08/12/18 10:41 Dose: 75 mg Enoxaparin Sodium (Lovenox) 60 mg SC Q12H [facility]; Protocol Last Admin: 08/12/18 21:39 Dose: 60 mg Finasteride (Proscar) 5 mg PO DAILY [facility] Last Admin: 08/12/18 10:41 Dose: 5 mg Vancomycin HCl (Vancomycin 1gm) 1 gm in 250 mls @ 167 mls/hr IVPB Q12H [facility]; Protocol Last Admin: 08/13/18 05:32 Dose: 167 mls/hr Meropenem (Merrem Iv 1 Gm Premix) 1 gm in 50 mls @ 100 mls/hr IVPB Q8 [facility]; Protocol Last Admin: 08/13/18 05:38 Dose: 100 mls/hr Acyclovir 600 mg/ Sodium (Chloride) 100 mls @ 100 mls/hr IV Q8 [facility]; Protocol Last Admin: 08/13/18 05:31 Dose: 100 mls/hr Doxycycline Hyclate 100 mg/ (Sodium Chloride) 100 mls @ 100 mls/hr IVPB Q12 [facility]; Protocol Last Admin: 08/12/18 21:40 Dose: 100 mls/hr Ampicillin 2 gm/ Sodium (Chloride) 100 mls @ 200 mls/hr IVPB Q6 [facility]; Protocol Last Admin: 08/13/18 05:31 Dose: 200 mls/hr Sodium Chloride (Sodium Chloride 0.9%) 1,000 mls @ 50 mls/hr IV .Q20H [facility] Last Admin: 08/12/18 06:52 Dose: 50 mls/hr Mesalamine (Pentasa) 1,500 mg PO BID [facility] Last Admin: 08/12/18 17:35 Dose: 1,500 mg Pantoprazole Sodium (Protonix Ec Tab) 40 mg PO 0630 [facility] Last Admin: 08/13/18 05:31 Dose: 40 mg Warfarin Sodium (Coumadin) 5 mg PO 1800 [facility] Last Admin: 08/12/18 17:35 Dose: 5 mg - Labs Labs: 08/12/18 06:30 08/12/18 06:00 PT 18.5 SECONDS (9.4-12.5) H 08/12/18 06:30 INR 1.64 08/12/18 06:30 APTT 31.2 Seconds (26.9-38.3) 08/07/18 16:40 - Constitutional Appears: No Acute Distress - Head Exam Head Exam: ATRAUMATIC, NORMOCEPHALIC - Eye Exam Eye Exam: EOMI - ENT Exam ENT Exam: Mucous Membranes Moist - Respiratory Exam Respiratory Exam: Clear to Ausculation Bilateral. absent: Rales, Rhonchi, Wheezes - Cardiovascular Exam Cardiovascular Exam: REGULAR RHYTHM, +S1, +S2 - GI/Abdominal Exam GI & Abdominal Exam: Soft. absent: Distended, Tenderness - Extremities Exam Extremities Exam: absent: Calf Tenderness, Pedal Edema - Neurological Exam Neurological Exam: Alert, Awake, Oriented x3 - Psychiatric Exam Psychiatric exam: Normal Mood - Skin Skin Exam: Dry, Warm Assessment and Plan - Assessment and Plan (Free Text) Assessment: 1. Sepsis likely 2/2 HCAP r/p meningoencephalitis 2. Delirium 3. headaches 4. nausea vomiting 5. CAD with CABG and stent placement 6. Hypertension 7. BPH 8. History of TIA 9. Crohn's disease Afebrile. CTAP showed A 9 x 17 mm nodule in the right lung, nodular infiltrates in the periphery of the left upper lobe. EEG was performed and showed no active seizures. Follow-up neurology recommendations- conservative management as patients daughter is refusing LP due to prior spinal sx. 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 Tylenol is ordered for his fevers. Patient is on vancomycin, meropenem, doxy, Ampicilin and acyclovir as per ID. ID also recommended a spinal lumbar puncture tap however the patient's daughter does not wish to have any invasive procedures done at this time. Patient with a history of TIAs therefore we will continue Plavix. History of valve replacement and therefore on Coumadin, INR subtherapeutic, cont with lovenox 60mg Q12. Monitor INR daily. We will continue with Lipitor for his hyperlipidemia, continue with Coreg for his hypertension, continue with mesalamine for his Crohn's disease. Septic workup thus far negative. Will d/c fluids. GI/DVT ppx. We will continue to monitor for any changes. Case and plan was reviewed and discussed with Dr. Marie <Reji Marie S - Last Filed: 08/13/18 16:26> Objective - Vital Signs/Intake and Output Vital Signs (last 24 hours): Temp Pulse Resp BP Pulse Ox 97.3 F L 84 19 141/70 97 08/13/18 12:00 08/13/18 12:00 08/13/18 12:00 08/13/18 12:00 08/13/18 06:00 Intake and Output: 08/13/18 08/13/18 06:59 18:59 Intake Total 1270 250 Balance 1270 250 - Medications Medications: Current Medications Acetaminophen (Tylenol 325mg Tab) 650 mg PO Q4H PRN PRN Reason: Fever >100.4 F Last Admin: 08/11/18 21:07 Dose: 650 mg Acetaminophen (Tylenol 650 Mg Supp) 650 mg RC Q4H PRN PRN Reason: Fever >100.4 F Last Admin: 08/11/18 05:55 Dose: 650 mg Atorvastatin Calcium (Lipitor) 20 mg PO HS [facility] Last Admin: 08/12/18 21:39 Dose: 20 mg Carvedilol (Coreg) 6.25 mg PO BID [facility] Last Admin: 08/13/18 10:36 Dose: 6.25 mg Clopidogrel Bisulfate (Plavix) 75 mg PO DAILY [facility] Last Admin: 08/13/18 10:37 Dose: 75 mg Enoxaparin Sodium (Lovenox) 60 mg SC Q12H [facility]; Protocol Last Admin: 08/13/18 10:28 Dose: 60 mg Finasteride (Proscar) 5 mg PO DAILY [facility] Last Admin: 08/13/18 10:29 Dose: 5 mg Vancomycin HCl (Vancomycin 1gm) 1 gm in 250 mls @ 167 mls/hr IVPB Q12H [facility]; Protocol Last Admin: 08/13/18 05:32 Dose: 167 mls/hr Meropenem (Merrem Iv 1 Gm Premix) 1 gm in 50 mls @ 100 mls/hr IVPB Q8 [facility]; Prot ocol Last Admin: 08/13/18 13:58 Dose: 100 mls/hr Acyclovir 600 mg/ Sodium (Chloride) 100 mls @ 100 mls/hr IV Q8 [facility]; Protocol Last Admin: 08/13/18 13:58 Dose: 100 mls/hr Doxycycline Hyclate 100 mg/ (Sodium Chloride) 100 mls @ 100 mls/hr IVPB Q12 [facility]; Protocol Last Admin: 08/13/18 10:28 Dose: 100 mls/hr Ampicillin 2 gm/ Sodium (Chloride) 100 mls @ 200 mls/hr IVPB Q6 [facility]; Protocol Last Admin: 08/13/18 12:30 Dose: 200 mls/hr Mesalamine (Pentasa) 1,500 mg PO BID [facility] Last Admin: 08/13/18 10:29 Dose: 1,500 mg Pantoprazole Sodium (Protonix Ec Tab) 40 mg PO 0630 [facility] Last Admin: 08/13/18 05:31 Dose: 40 mg Warfarin Sodium (Coumadin) 5 mg PO 1800 [facility] Last Admin: 08/12/18 17:35 Dose: 5 mg - Labs Labs: 08/12/18 06:30 08/13/18 10:40 PT 16.3 SECONDS (9.4-12.5) H 08/13/18 10:40 INR 1.44 08/13/18 10:40 APTT 31.2 Seconds (26.9-38.3) 08/07/18 16:40 Assessment and Plan - Assessment and Plan (Free Text) Assessment: Pt seen and examined by me. I have reviewed the note of the medical staff director and I agree with it. I have discussed the assessment and plan with the resident. I have reviewed the medications and the last labs. Pt with sepsis of unknown cause. He is on broad spectrum Abx and Antiviral medications. He is improving. He is eating better and is a good sign of clinical improvement. He was not able to take his meds and may be better and able to swallow. Pt is on Lipitor for dyslipidemia. Granddaughter is at the bedside. He is on Lovenox for Valve replacement. Pain is controlled.
--- NOTE | 2018-08-13 10:17 | PN ---
DATE: 08/13/2018 SUBJECTIVE: The patient is seen lying in bed on telemetry. He is more awake and alert this morning. He remains afebrile. MEDICATIONS: His current medications include; acyclovir, ampicillin, carvedilol 6.25 mg b.i.d., warfarin 5 mg daily, doxycycline, Lipitor 20 mg daily, Lovenox 60 mg every 12 hours, meropenem, Pentasa, Plavix 75 mg daily, Proscar, Protonix and IV vancomycin. OBJECTIVE: GENERAL: He is a very elderly man who appears comfortable at rest. VITAL SIGNS: Blood pressure 146/60, pulse of 60 in sinus and respirations are 16. He is afebrile. HEENT: No JVD. CHEST: Few scattered rhonchi heard. HEART: Gem prosthetic valve sounds noted. ABDOMEN: Soft and nontender with normoactive bowel sounds. EXTREMITIES: No edema. DIAGNOSTIC DATA: Morning blood work is pending. IMPRESSION: 1. Recent sepsis, clinically improved, exact source unclear. 2. Altered mental status secondary to sepsis, also improved. 3. Coronary disease status post prior bypass surgery and aortic valve replacement with mechanical valve as well as prior percutaneous coronary intervention, appears stable at the present time. 4. History of prior transient ischemic attacks. 5. History of Crohn's disease. RECOMMENDATIONS: Current medications will be continued for now. Blood cultures all remain negative. Empiric antibiotic therapy discontinuing. Coumadin loading will continue and Lovenox can be discontinued once his INR is greater than 2.5. His target INR is 2.5 to 3.5. We will continue to follow and make further recommendations as appropriate. Imtiaz Peterson MD
[2018-08-13] MEDS: Enoxaparin 60 mg Syringe SC SCH ×2 (10:28→21:03)
[2018-08-13] MEDS: Mesalamine ER Cap 500 MG PO SCH ×2 (10:29→18:17)
[2018-08-13 10:51] LABS: INR 1.44; PROTHROMBIN TIME 16.3 SECONDS (9.4-12.5)
[2018-08-13 10:56] LABS: ALT/SGPT 24 U/L (7-56); AST/SGOT 34 U/L (17-59); BLOOD UREA NITROGEN 11 mg/dL (7-21); CALCIUM 9.2 mg/dL (8.4-10.5); GFR NON-AFRICAN AMERICAN > 60
--- NOTE | 2018-08-13 14:14 | CP.PCM.PN ---
Subjective - Date & Time of Evaluation Date of Evaluation: 08/13/18 Time of Evaluation: 10:45 - Subjective Subjective: Patient sitting up on the chair, much more awake, no fevers, not in distress, still with occasional confusion, no nausea, no headache. Objective - Vital Signs/Intake and Output Vital Signs (last 24 hours): Temp Pulse Resp BP Pulse Ox 98.4 F 61 20 133/62 98 08/12/18 06:00 08/12/18 06:00 08/12/18 06:00 08/12/18 06:00 08/12/18 06:00 Intake and Output: 08/12/18 08/12/18 06:59 18:59 Intake Total 0 Output Total 1200 Balance -1200 - Medications Medications: Current Medications Acetaminophen (Tylenol 325mg Tab) 650 mg PO Q4H PRN PRN Reason: Fever >100.4 F Last Admin: 08/11/18 21:07 Dose: 650 mg Acetaminophen (Tylenol 650 Mg Supp) 650 mg RC Q4H PRN PRN Reason: Fever >100.4 F Last Admin: 08/11/18 05:55 Dose: 650 mg Atorvastatin Calcium (Lipitor) 20 mg PO HS [facility] Last Admin: 08/11/18 21:06 Dose: 20 mg Carvedilol (Coreg) 6.25 mg PO BID [facility] Last Admin: 08/11/18 17:47 Dose: 6.25 mg Clopidogrel Bisulfate (Plavix) 75 mg PO DAILY [facility] Last Admin: 08/11/18 11:25 Dose: 75 mg Enoxaparin Sodium (Lovenox) 60 mg SC Q12H [facility]; Protocol Last Admin: 08/11/18 21:07 Dose: 60 mg Finasteride (Proscar) 5 mg PO DAILY [facility] Last Admin: 08/11/18 11:25 Dose: 5 mg Vancomycin HCl (Vancomycin 1gm) 1 gm in 250 mls @ 167 mls/hr IVPB Q12H [facility]; Protocol Last Admin: 08/12/18 06:43 Dose: 167 mls/hr Meropenem (Merrem Iv 1 Gm Premix) 1 gm in 50 mls @ 100 mls/hr IVPB Q8 [facility]; Protocol Last Admin: 08/12/18 06:44 Dose: 100 mls/hr Acyclovir 600 mg/ Sodium (Chloride) 100 mls @ 100 mls/hr IV Q8 [facility]; Protocol Last Admin: 08/12/18 05:35 Dose: 100 mls/hr Doxycycline Hyclate 100 mg/ (Sodium Chloride) 100 mls @ 100 mls/hr IVPB Q12 [facility]; Protocol Last Admin: 08/11/18 22:05 Dose: 100 mls/hr Ampicillin 2 gm/ Sodium (Chloride) 100 mls @ 200 mls/hr IVPB Q6 [facility]; Protocol Last Admin: 08/12/18 05:04 Dose: 200 mls/hr Sodium Chloride (Sodium Chloride 0.9%) 1,000 mls @ 50 mls/hr IV .Q20H [facility] Last Admin: 08/12/18 06:52 Dose: 50 mls/hr Mesalamine (Pentasa) 1,500 mg PO BID [facility] Last Admin: 08/11/18 17:49 Dose: 1,500 mg Warfarin Sodium (Coumadin) 4 mg PO 1800 [facility] Last Admin: 08/10/18 18:01 Dose: Not Given - Labs Labs: 08/12/18 06:30 08/12/18 06:00 PT 18.5 SECONDS (9.4-12.5) H 08/12/18 06:30 INR 1.64 08/12/18 06:30 APTT 31.2 Seconds (26.9-38.3) 08/07/18 16:40 - Constitutional Appears: Chronically Ill - Head Exam Head Exam: NORMAL INSPECTION - Respiratory Exam Respiratory Exam: Decreased Breath Sounds - Cardiovascular Exam Cardiovascular Exam: +S1, +S2 - GI/Abdominal Exam GI & Abdominal Exam: Soft. absent: Tenderness Assessment and Plan - Assessment and Plan (Free Text) Plan: Assessment Systemic inflammatory response syndrome, with fevers, consider sepsis due to left sided HCAP, need to rule out meningoencephalitis, slowly improving CAD S/P CABG S/P PCI HTN history of TIA BPH ascending aortic aneurysm S/P repair S/P aortic valve replacement Crohn's disease dyslipidemia history of spinal laminectomy Plan continue Vancomycin, Merrem day 6 and Acyclovir day 5 and added Ampicillin; reviewed CXR which does not show infiltrates reviewed CT C/A/P showing left sided nodular infiltrates would recommend lumbar puncture for CSF analysis - discussed with Dr. Marie previously - daughter is refusing due history of spinal surgery will continue to monitor clinically serum Crypt Ag is negative prognosis is guarded follow up further recommendations of Neurology
[2018-08-14] MEDS: AMPicillin 2 GM in Sodium Chloride 0.9% 100 ML IVPB SCH ×5 (00:04→23:58)
[2018-08-14] MEDS: Meropenem IV 1 gm in NS 1 GM/50 ML BAG IVPB SCH ×3 (05:15→21:24)
[2018-08-14] MEDS: Vancomycin 1gm in NS 250ml 1 GM/250 ML BAG IVPB SCH ×2 (05:17→17:56)
[2018-08-14] MEDS: Pantoprazole 40 mg EC Tab PO SCH (06:03)
[2018-08-14 07:17] LABS: INR 1.5; PROTHROMBIN TIME 16.9 SECONDS (9.4-12.5)
[2018-08-14 07:58] LABS: BASO # 0.02 K/mm3 (0.0-2.0); BASO % 0.2 % (0.0-3.0); EOS # 0.3 (0.0-0.7); EOS % 2.8 % (1.5-5.0); HEMOGLOBIN 12.1 g/dL (14.0-18.0); LYMPH # 1.7 (1.2-3.4); LYMPH % 17.5 % (22.0-35.0); MEAN CELL VOLUME 91.7 fl (80.0-105.0); MEAN CORPUSCULAR HEMOGLOBIN 29.6 pg (25.0-35.0); MEAN CORPUSCULAR HGB CONC 32.3 g/dl (31.0-37.0); MEAN PLATELET VOLUME 9.9 fl (7.0-11.0); MONO # 0.7 (0.1-0.6); MONO % 7.6 % (1.0-6.0); RBC 4.09 10^6/uL (3.5-6.1); RED CELL DISTRIBUTION WIDTH 13.2 % (11.5-14.5); WHITE BLOOD COUNT 9.5 10^3/uL (4.5-11.0)
[2018-08-14 08:19] LABS: ALBUMIN 3.1 g/dL (3.0-4.8); ALT/SGPT 24 U/L (7-56); AST/SGOT 27 U/L (17-59); BLOOD UREA NITROGEN 12 mg/dL (7-21); GFR NON-AFRICAN AMERICAN > 60
[2018-08-14] MEDS: Mesalamine ER Cap 500 MG PO SCH ×2 (10:31→17:37)
[2018-08-14] MEDS: Enoxaparin 60 mg Syringe SC SCH ×2 (10:32→21:23)
--- NOTE | 2018-08-14 13:43 | PN ---
DATE: 08/14/2018 SUBJECTIVE: The patient is seen lying in bed, in 5R. He is comfortable at the present time. He is arousable and appears appropriate. He remains afebrile. CURRENT MEDICATIONS: Include acyclovir, ampicillin, carvedilol 6.25 mg b.i.d., warfarin, doxycycline, Lipitor, Lovenox, meropenem, Pentasa, Plavix 75 mg daily, Proscar, Protonix, and IV vancomycin. OBJECTIVE: GENERAL: He is a very elderly man who appears comfortable at rest. VITAL SIGNS: His blood pressure is 136/60 with pulse of 60, respirations are 16. He is afebrile. HEENT: No JVD. CHEST: Few scattered rhonchi heard. HEART: Knott prosthetic valve sounds heard. ABDOMEN: Soft, nontender with bowel sounds. EXTREMITIES: No edema. DIAGNOSTIC DATA: Potassium 3.6, BUN and creatinine 12 and 0.7. White count 9.5, hemoglobin and hematocrit 12.1 and 37.5 with platelet count of 198,000. IMPRESSION: 1. Recent sepsis, etiology uncertain, but clinically improved. 2. Altered mental status, also improved. 3. Coronary artery disease, status post prior bypass surgery and aortic valve replacement as well as a percutaneous coronary intervention, stable at the present time. 4. History of prior transient ischemic attack. 5. Crohn disease. RECOMMENDATIONS: Current medications will continue for now. Morning INR is 1.5, Lovenox will be continued until his INR is above 2.5, given his mechanical valve. He should be gotten out of bed and physical therapy can be initiated. We will continue to follow and make further recommendation as appropriate. Imtiaz Peterson MD
--- NOTE | 2018-08-14 14:49 | CP.PCM.PN ---
Subjective - Date & Time of Evaluation Date of Evaluation: 08/14/18 Time of Evaluation: 11:55 - Subjective Subjective: Comfortable on a chair, no fevers, more awake today. No headache. Objective - Vital Signs/Intake and Output Vital Signs (last 24 hours): Temp Pulse Resp BP Pulse Ox 97.3 F L 84 19 141/70 97 08/13/18 12:00 08/13/18 12:00 08/13/18 12:00 08/13/18 12:00 08/13/18 06:00 Intake and Output: 08/13/18 08/13/18 06:59 18:59 Intake Total 1270 Balance 1270 - Medications Medications: Current Medications Acetaminophen (Tylenol 325mg Tab) 650 mg PO Q4H PRN PRN Reason: Fever >100.4 F Last Admin: 08/11/18 21:07 Dose: 650 mg Acetaminophen (Tylenol 650 Mg Supp) 650 mg RC Q4H PRN PRN Reason: Fever >100.4 F Last Admin: 08/11/18 05:55 Dose: 650 mg Atorvastatin Calcium (Lipitor) 20 mg PO HS [facility] Last Admin: 08/12/18 21:39 Dose: 20 mg Carvedilol (Coreg) 6.25 mg PO BID [facility] Last Admin: 08/13/18 10:36 Dose: 6.25 mg Clopidogrel Bisulfate (Plavix) 75 mg PO DAILY [facility] Last Admin: 08/13/18 10:37 Dose: 75 mg Enoxaparin Sodium (Lovenox) 60 mg SC Q12H [facility]; Protocol Last Admin: 08/13/18 10:28 Dose: 60 mg Finasteride (Proscar) 5 mg PO DAILY [facility] Last Admin: 08/13/18 10:29 Dose: 5 mg Vancomycin HCl (Vancomycin 1gm) 1 gm in 250 mls @ 167 mls/hr IVPB Q12H [facility]; Protocol Last Admin: 08/13/18 05:32 Dose: 167 mls/hr Meropenem (Merrem Iv 1 Gm Premix) 1 gm in 50 mls @ 100 mls/hr IVPB Q8 [facility]; Protocol Last Admin: 08/13/18 13:58 Dose: 100 mls/hr Acyclovir 600 mg/ Sodium (Chloride) 100 mls @ 100 mls/hr IV Q8 [facility]; Protocol Last Admin: 08/13/18 13:58 Dose: 100 mls/hr Doxycycline Hyclate 100 mg/ (Sodium Chloride) 100 mls @ 100 mls/hr IVPB Q12 [facility]; Protocol Last Admin: 08/13/18 10:28 Dose: 100 mls/hr Ampicillin 2 gm/ Sodium (Chloride) 100 mls @ 200 mls/hr IVPB Q6 [facility]; Protocol Last Admin: 08/13/18 12:30 Dose: 200 mls/hr Mesalamine (Pentasa) 1,500 mg PO BID [facility] Last Admin: 08/13/18 10:29 Dose: 1,500 mg Pantoprazole Sodium (Protonix Ec Tab) 40 mg PO 0630 [facility] Last Admin: 08/13/18 05:31 Dose: 40 mg Warfarin Sodium (Coumadin) 5 mg PO 1800 [facility] Last Admin: 08/12/18 17:35 Dose: 5 mg - Labs Labs: 08/12/18 06:30 08/13/18 10:40 PT 16.3 SECONDS (9.4-12.5) H 08/13/18 10:40 INR 1.44 08/13/18 10:40 APTT 31.2 Seconds (26.9-38.3) 08/07/18 16:40 - Constitutional Appears: Chronically Ill - Head Exam Head Exam: NORMAL INSPECTION - Respiratory Exam Respiratory Exam: Decreased Breath Sounds - Cardiovascular Exam Cardiovascular Exam: +S1, +S2 - GI/Abdominal Exam GI & Abdominal Exam: Soft. absent: Tenderness Assessment and Plan - Assessment and Plan (Free Text) Plan: Assessment Systemic inflammatory response syndrome, with fevers, consider sepsis due to left sided HCAP, need to rule out meningoencephalitis, slowly improving CAD S/P CABG S/P PCI HTN history of TIA BPH ascending aortic aneurysm S/P repair S/P aortic valve replacement Crohn's disease dyslipidemia history of spinal laminectomy Plan continue Vancomycin, Merrem day 7 and Acyclovir day 6 and added Ampicillin; reviewed CXR which does not show infiltrates - target 10-14 days of antibiotics and antivirals reviewed CT C/A/P showing left sided nodular infiltrates would recommend lumbar puncture for CSF analysis - discussed with Dr. Marie previously - daughter is refusing due history of spinal surgery will continue to monitor clinically serum Crypt Ag is negative prognosis is guarded follow up further recommendations of Neurology
--- NOTE | 2018-08-14 15:09 | CP.PCM.PN ---
<Gerardo Arce - Last Filed: 08/14/18 15:12> Subjective - Date & Time of Evaluation Date of Evaluation: 08/14/18 Time of Evaluation: 07:00 - Subjective Subjective: Medicine progress note for Dr. Marie: Patient was seen and examined at bedside. Patient is more responsive and less lethargic today. No fevers. 12 point ROS limited but performed and neg Objective - Vital Signs/Intake and Output Vital Signs (last 24 hours): Temp Pulse Resp BP Pulse Ox 97.9 F 64 18 117/16 L 97 08/14/18 14:00 08/14/18 14:00 08/14/18 14:00 08/14/18 14:00 08/14/18 14:00 Intake and Output: 08/14/18 08/14/18 06:59 18:59 Intake Total 1190 480 Balance 1190 480 - Medications Medications: Current Medications Acetaminophen (Tylenol 325mg Tab) 650 mg PO Q4H PRN PRN Reason: Fever >100.4 F Last Admin: 08/14/18 06:03 Dose: 650 mg Acetaminophen (Tylenol 650 Mg Supp) 650 mg RC Q4H PRN PRN Reason: Fever >100.4 F Last Admin: 08/11/18 05:55 Dose: 650 mg Atorvastatin Calcium (Lipitor) 20 mg PO HS [facility] Last Admin: 08/13/18 21:04 Dose: 20 mg Carvedilol (Coreg) 6.25 mg PO BID [facility] Last Admin: 08/14/18 10:32 Dose: 6.25 mg Clopidogrel Bisulfate (Plavix) 75 mg PO DAILY [facility] Last Admin: 08/14/18 10:31 Dose: 75 mg Enoxaparin Sodium (Lovenox) 60 mg SC Q12H [facility]; Protocol Last Admin: 08/14/18 10:32 Dose: 60 mg Finasteride (Proscar) 5 mg PO DAILY [facility] Last Admin: 08/14/18 10:32 Dose: 5 mg Vancomycin HCl (Vancomycin 1gm) 1 gm in 250 mls @ 167 mls/hr IVPB Q12H [facility]ANNA; Protocol Last Admin: 08/14/18 05:17 Dose: 167 mls/hr Meropenem (Merrem Iv 1 Gm Premix) 1 gm in 50 mls @ 100 mls/hr IVPB Q8 [facility]NA; Protocol Last Admin: 08/14/18 14:22 Dose: 100 mls/hr Acyclovir 600 mg/ Sodium (Chloride) 100 mls @ 100 mls/hr IV Q8 [facility]ANNA; Protocol Last Admin: 08/14/18 14:34 Dose: 100 mls/hr Doxycycline Hyclate 100 mg/ (Sodium Chloride) 100 mls @ 100 mls/hr IVPB Q12 [facility]; Protocol Last Admin: 08/14/18 10:34 Dose: 100 mls/hr Ampicillin 2 gm/ Sodium (Chloride) 100 mls @ 200 mls/hr IVPB Q6 [facility]USANNA; Protocol Last Admin: 08/14/18 14:14 Dose: 200 mls/hr Mesalamine (Pentasa) 1,500 mg PO BID [facility] Last Admin: 08/14/18 10:31 Dose: 1,500 mg Pantoprazole Sodium (Protonix Ec Tab) 40 mg PO 0630 [facility] Last Admin: 08/14/18 06:03 Dose: 40 mg Warfarin Sodium (Coumadin) 7.5 mg PO 1800 [facility] - Labs Labs: 08/14/18 07:03 08/14/18 07:03 PT 16.9 SECONDS (9.4-12.5) H 08/14/18 07:00 INR 1.50 08/14/18 07:00 APTT 31.2 Seconds (26.9-38.3) 08/07/18 16:40 - Constitutional Appears: No Acute Distress - Head Exam Head Exam: ATRAUMATIC, NORMOCEPHALIC - Eye Exam Eye Exam: EOMI - ENT Exam ENT Exam: Mucous Membranes Moist - Respiratory Exam Respiratory Exam: Clear to Ausculation Bilateral. absent: Rales, Rhonchi, Wheezes - Cardiovascular Exam Cardiovascular Exam: REGULAR RHYTHM, RRR, +S1, +S2 - GI/Abdominal Exam GI & Abdominal Exam: Soft. absent: Distended, Tenderness - Extremities Exam Extremities Exam: absent: Calf Tenderness, Pedal Edema - Neurological Exam Neurological Exam: Alert, Awake, Oriented x3 - Psychiatric Exam Psychiatric exam: Normal Mood - Skin Skin Exam: Dry, Normal Color, Warm Assessment and Plan - Assessment and Plan (Free Text) Assessment: 1. Sepsis likely 2/2 HCAP r/p meningoencephalitis 2. Delirium 3. headaches 4. nausea vomiting 5. CAD with CABG and stent placement 6. Hypertension 7. BPH 8. History of TIA 9. Crohn's disease Clinically doing better. Patient is on vancomycin, meropenem, doxy, Ampicilin and acyclovir as per ID. Follow-up neurology recommendations- conservative management as patients daughter is refusing LP due to prior spinal sx. ID also recommended a spinal lumbar puncture tap however the patient's daughter does not wish to have any invasive procedures done at this time. Patient with a history of TIAs therefore we will continue Plavix. History of valve replacement and therefore on Coumadin, INR subtherapeutic, cont with lovenox 60mg Q12. Monitor INR daily. We will continue with Lipitor for his hyperlipidemia, continue with Coreg for his hypertension, continue with mesalamine for his Crohn's disease. Septic workup thus far negative. Will d/c fluids. GI/DVT ppx. We will continue to monitor for any changes. Case and plan was reviewed and discussed with Dr. Marie <Reji Marie S - Last Filed: 08/14/18 16:54> Objective - Vital Signs/Intake and Output Vital Signs (last 24 hours): Temp Pulse Resp BP Pulse Ox 97.9 F 64 18 117/16 L 97 08/14/18 14:00 08/14/18 14:00 08/14/18 14:00 08/14/18 14:00 08/14/18 14:00 Intake and Output: 08/14/18 08/14/18 06:59 18:59 Intake Total 1190 480 Balance 1190 480 - Medications Medications: Current Medications Acetaminophen (Tylenol 325mg Tab) 650 mg PO Q4H PRN PRN Reason: Fever >100.4 F Last Admin: 08/14/18 06:03 Dose: 650 mg Acetaminophen (Tylenol 650 Mg Supp) 650 mg RC Q4H PRN PRN Reason: Fever >100.4 F Last Admin: 08/11/18 05:55 Dose: 650 mg Atorvastatin Calcium (Lipitor) 20 mg PO HS [facility] Last Admin: 08/13/18 21:04 Dose: 20 mg Carvedilol (Coreg) 6.25 mg PO BID [facility] Last Admin: 08/14/18 10:32 Dose: 6.25 mg Clopidogrel Bisulfate (Plavix) 75 mg PO DAILY [facility] Last Admin: 08/14/18 10:31 Dose: 75 mg Enoxaparin Sodium (Lovenox) 60 mg SC Q12H [facility]; Protocol Last Admin: 08/14/18 10:32 Dose: 60 mg Finasteride (Proscar) 5 mg PO DAILY [facility] Last Admin: 08/14/18 10:32 Dose: 5 mg Vancomycin HCl (Vancomycin 1gm) 1 gm in 250 mls @ 167 mls/hr IVPB Q12H [facility]; Protocol Last Admin: 08/14/18 05:17 Dose: 167 mls/hr Meropenem (Merrem Iv 1 Gm Premix) 1 gm in 50 mls @ 100 mls/hr IVPB Q8 [facility]; Protocol Last Admin: 08/14/18 14:22 Dose: 100 mls/hr Acyclovir 600 mg/ Sodium (Chloride) 100 mls @ 100 mls/hr IV Q8 [facility]; Protocol Last Admin: 08/14/18 14:34 Dose: 100 mls/hr Doxycycline Hyclate 100 mg/ (Sodium Chloride) 100 mls @ 100 mls/hr IVPB Q12 [facility]; Protocol Last Admin: 08/14/18 10:34 Dose: 100 mls/hr Ampicillin 2 gm/ Sodium (Chloride) 100 mls @ 200 mls/hr IVPB Q6 [facility]; Protocol Last Admin: 08/14/18 14:14 Dose: 200 mls/hr Mesalamine (Pentasa) 1,500 mg PO BID [facility] Last Admin: 08/14/18 10:31 Dose: 1,500 mg Pantoprazole Sodium (Protonix Ec Tab) 40 mg PO 0630 [facility] Last Admin: 08/14/18 06:03 Dose: 40 mg Warfarin Sodium (Coumadin) 7.5 mg PO 1800 [facility] - Labs Labs: 08/14/18 07:03 08/14/18 07:03 PT 16.9 SECONDS (9.4-12.5) H 08/14/18 07:00 INR 1.50 08/14/18 07:00 APTT 31.2 Seconds (26.9-38.3) 08/07/18 16:40 Assessment and Plan - Assessment and Plan (Free Text) Assessment: Pt seen and examined by me. I have reviewed the note of the biomedical engineering professor and I agree with it. I have discussed the assessment and plan with the resident. I have reviewed the medications and the last labs. Pt with sepsis but of unknown Pt has improving delerium. Hs headache has improved. He is on Lovenox. He will have his diet advanced in consistency. Pt will continue with Lipitor for dyslipidemia. Pt will be on Mesalamine for Crohn's disease. Spoke to daughter to update her. May need to go to TCU for rehab.
[2018-08-15] MEDS: Meropenem IV 1 gm in NS 1 GM/50 ML BAG IVPB SCH (05:36)
[2018-08-15] MEDS: AMPicillin 2 GM in Sodium Chloride 0.9% 100 ML IVPB SCH (05:37)
[2018-08-15] MEDS: Vancomycin 1gm in NS 250ml 1 GM/250 ML BAG IVPB SCH (05:39)
[2018-08-15] MEDS: Pantoprazole 40 mg EC Tab PO SCH (05:40)
[2018-08-15 06:50] LABS: BASO # 0.02 K/mm3 (0.0-2.0); BASO % 0.2 % (0.0-3.0); EOS # 0.3 (0.0-0.7); EOS % 3.4 % (1.5-5.0); HEMOGLOBIN 12.7 g/dL (14.0-18.0); LYMPH # 1.5 (1.2-3.4); LYMPH % 17.9 % (22.0-35.0); MEAN CELL VOLUME 92.4 fl (80.0-105.0); MEAN CORPUSCULAR HGB CONC 32.5 g/dl (31.0-37.0); MONO # 0.6 (0.1-0.6); MONO % 7.3 % (1.0-6.0); RBC 4.23 10^6/uL (3.5-6.1); RED CELL DISTRIBUTION WIDTH 13.5 % (11.5-14.5); WHITE BLOOD COUNT 8.5 10^3/uL (4.5-11.0)
[2018-08-15 06:57] LABS: INR 1.96; PROTHROMBIN TIME 22.1 SECONDS (9.4-12.5)
[2018-08-15 07:05] LABS: ALBUMIN 3.3 g/dL (3.0-4.8); ALT/SGPT 26 U/L (7-56); AST/SGOT 28 U/L (17-59); BLOOD UREA NITROGEN 10 mg/dL (7-21); GFR NON-AFRICAN AMERICAN > 60
[2018-08-15 08:56] VITALS: BP 155/76; PULSE 63; RESP 18; TEMP 97.9; O2SAT 96
--- NOTE | 2018-08-15 09:48 | CP.PCM.DIS ---
<Gerardo Arce - Last Filed: 08/15/18 16:10> Provider - Provider Date of Admission: 08/08/18 15:39 Attending physician: Reji Marie MD Consults: 08/08/18 11:17 Consult [Physician Consult] Routine Comment: Consulting Provider: Rodney Gentile Consulting Physician: Rodney Gentile Reason for Consult: AMS 08/08/18 15:50 Consult [Physician Consult] Routine Comment: EVALUATE AND MANAGE ARRHYTMIA Consulting Provider: Imtiaz Peterson Consulting Physician: Imtiaz Peterson Reason for Consult: Altered mental status, short runs of V-tach 08/08/18 17:41 Consult [Physician Consult] Routine Comment: AMS, decline in functional status Consulting Provider: Rohan Gautam Consulting Physician: Rohan Gautam Reason for Consult: Evaluate and manage 08/13/18 12:48 TRCU [Evaluation for TRCU] Routine Comment: PT HOME AFTER Physician Instructions: SBA RECOMMENDED, FAMILY REQUESTING TRCU, WILL TAKE Reason For Exam: CONTINUATION IV AB'S, THERAPY Time Spent in preparation of Discharge (in minutes): 45 Hospital Course - Lab Results Lab Results: Micro Results 08/07/18 17:52 Blood-Venous Blood Culture - Final NO GROWTH AFTER 5 DAYS 08/07/18 17:52 Blood-Venous Gram Stain - Final TEST NOT PERFORMED 08/07/18 16:40 Blood-Venous Blood Culture - Final NO GROWTH AFTER 5 DAYS 08/07/18 16:40 Blood-Venous Gram Stain - Final TEST NOT PERFORMED 08/07/18 18:00 Urine,Clean Catch Urine Culture - Final No Growth (<1,000 CFU/ML) Most Recent Lab Values WBC 8.5 10^3/uL (4.5-11.0) 08/15/18 06:00 RBC 4.23 10^6/uL (3.5-6.1) 08/15/18 06:00 Hgb 12.7 g/dL (14.0-18.0) L 08/15/18 06:00 Hct 39.1 % (42.0-52.0) L 08/15/18 06:00 MCV 92.4 fl (80.0-105.0) 08/15/18 06:00 MCH 30.0 pg (25.0-35.0) 08/15/18 06:00 MCHC 32.5 g/dl (31.0-37.0) 08/15/18 06:00 RDW 13.5 % (11.5-14.5) 08/15/18 06:00 Plt Count 212 10^3/uL (120.0-450.0) 08/15/18 06:00 MPV 10.0 fl (7.0-11.0) 08/15/18 06:00 Neut % (Auto) 71.2 % (50.0-68.0) H 08/15/18 06:00 Lymph % (Auto) 17.9 % (22.0-35.0) L 08/15/18 06:00 Bonner % (Auto) 7.3 % (1.0-6.0) H 08/15/18 06:00 Eos % (Auto) 3.4 % (1.5-5.0) 08/15/18 06:00 Baso % (Auto) 0.2 % (0.0-3.0) 08/15/18 06:00 Lymph # (Auto) 1.5 (1.2-3.4) 08/15/18 06:00 Bonner # (Auto) 0.6 (0.1-0.6) 08/15/18 06:00 Eos # (Auto) 0.3 (0.0-0.7) 08/15/18 06:00 Baso # (Auto) 0.02 K/mm3 (0.0-2.0) 08/15/18 06:00 Absolute Neuts (auto) 6.03 (1.4-6.5) 08/15/18 06:00 PT 22.1 SECONDS (9.4-12.5) H 08/15/18 06:00 INR 1.96 08/15/18 06:00 APTT 31.2 Seconds (26.9-38.3) 08/07/18 16:40 Sodium 139 mmol/L (132-148) 08/15/18 06:00 Potassium 3.4 mmol/L (3.6-5.0) L 08/15/18 06:00 Chloride 105 mmol/L (98-107) 08/15/18 06:00 Carbon Dioxide 28 mmol/L (21-33) 08/15/18 06:00 Anion Gap 9 (10-20) L 08/15/18 06:00 BUN 10 mg/dL (7-21) 08/15/18 06:00 Creatinine 0.7 mg/dl (0.8-1.5) L 08/15/18 06:00 Est GFR ( Amer) > 60 08/15/18 06:00 Est GFR (Non-Af Amer) > 60 08/15/18 06:00 Random Glucose 103 mg/dL (70-110) 08/15/18 06:00 Hemoglobin A1c 5.8 % (4.2-6.5) 08/08/18 10:00 Calcium 9.0 mg/dL (8.4-10.5) 08/15/18 06:00 Phosphorus 3.2 mg/dL (2.5-4.5) 08/07/18 16:40 Magnesium 1.9 mg/dL (1.7-2.2) 08/07/18 16:40 Total Bilirubin 0.6 mg/dL (0.2-1.3) 08/15/18 06:00 AST 28 U/L (17-59) 08/15/18 06:00 ALT 26 U/L (7-56) 08/15/18 06:00 Alkaline Phosphatase 59 U/L (38-126) 08/15/18 06:00 Lactate Dehydrogenase 500 U/L (333-699) 08/07/18 16:40 Total Creatine Kinase 39 U/L (35-230) 08/07/18 16:40 Troponin I < 0.01 ng/mL 08/07/18 16:40 Total Protein 6.8 g/dL (5.8-8.3) 08/15/18 06:00 Albumin 3.3 g/dL (3.0-4.8) 08/15/18 06:00 Globulin 3.4 gm/dL 08/15/18 06:00 Albumin/Globulin Ratio 1.0 (1.1-1.8) L 08/15/18 06:00 Triglycerides 132 mg/dL (35-160) 08/08/18 11:18 Cholesterol 122 mg/dL (130-200) L 08/08/18 11:18 LDL Cholesterol Direct 66 mg/dL (0-129) 08/08/18 11:18 HDL Cholesterol 24 mg/dL (29-60) L 08/08/18 11:18 Procalcitonin < 0.05 NG/ML (0.19-0.49) L 08/08/18 13:00 Free T4 1.08 ng/dL (0.78-2.19) 08/08/18 10:00 TSH 3rd Generation 0.69 mIU/mL (0.46-4.68) 08/08/18 10:00 Urine Color Yellow (YELLOW) 08/07/18 18:00 Urine Appearance Clear (CLEAR) 08/07/18 18:00 Urine pH 6.5 (4.7-8.0) 08/07/18 18:00 Ur Specific [employer] [place] 1.020 (1.005-1.035) 08/07/18 18:00 Urine Protein 100 mg/dL (<30 mg/dL) H 08/07/18 18:00 Urine Glucose (UA) Negative mg/dL (NEGATIVE) 08/07/18 18:00 Urine Ketones 15 mg/dL (NEGATIVE) H 08/07/18 18:00 Urine Blood Negative (NEGATIVE) 08/07/18 18:00 Urine Nitrate Negative (NEGATIVE) 08/07/18 18:00 Urine Bilirubin Negative (NEGATIVE) 08/07/18 18:00 Urine Urobilinogen 0.2 E.U./dL (<1 E.U./dL) 08/07/18 18:00 Ur Leukocyte Esterase Negative Brianna/uL (NEGATIVE) 08/07/18 18:00 Urine RBC TEST NOT PERFORMED 08/07/18 18:00 Urine WBC 2 - 5 /hpf (0-6) 08/07/18 18:00 Ur Epithelial Cells 6 - 8 /hpf (0-5) H 08/07/18 18:00 Cryptococcus Ag Screen Not detected (Not Detected) 08/09/18 10:15 Influenza Typ A,B (EIA) Negative for flu a/b (NEGATIVE) 08/08/18 13:00 Ur L.pneumophila Ag Negative (NEGATIVE) 08/13/18 04:00 RSV Antigen Negative (NEGATIVE) 08/08/18 13:00 - Hospital Course Hospital Course: 88 year old male, whose past medical history includes TIA, BPH, CABG s/p MA, CAD with coronary stents, hypertension, ascending thoracic aneurysm repair, AV valve replacement, Crohn's disease, and dyslipidemia, presents with headache and nausea. Patient was found to have Sirs criteria in the emergency room. UA and chest x-ray were performed and were negative. CT of the head was performed that was negative. Patient did have a white count of 16.2 and was started on cefepime. Patient was admitted to telemetry for continued monitoring. Patient became more delirious, and was febrile for the following 2 days. Infectious disease and neurology were consulted. Infectious disease placed the patient on Vanco, ceci, ampicillin, and doxycycline. Patient was also started on Tamiflu for possible viral illness with influenza. They also recommended a lumbar puncture. Neurology evaluated the patient and also recommended a lumbar puncture. Patient's daughter refused any procedure including lumbar puncture as the patient had prior history of spinal surgery. Patient's symptoms including his delirium, and his fevers both have improved. Patient is clinically feeling better and as per the daughter is back to his baseline. Physical therapy evaluated the patient and recommended TCU. Plan to discharge to TCU and continue his current medications. Discharge Exam - Head Exam Head Exam: ATRAUMATIC, NORMOCEPHALIC Discharge Plan - Follow Up Plan Condition: STABLE Disposition: TRANSF TO ICF Instructions: Headache, Adult, Dangers of Secondhand Smoke, Flu Vaccine, Altered Mental Status (GEN) Additional Instructions: D/c to TCU, resume all inpatient medications and consults <Reji Marie - Last Filed: 08/15/18 17:28> Provider - Provider Date of Admission: 08/08/18 15:39 Attending physician: Reji Marie MD Consults: 08/08/18 11:17 Consult [Physician Consult] Routine Comment: Consulting Provider: Rodney Gentile Consulting Physician: Rodney Gentile Reason for Consult: AMS 08/08/18 15:50 Consult [Physician Consult] Routine Comment: EVALUATE AND MANAGE ARRHYTMIA Consulting Provider: Imtiaz Peterson Consulting Physician: Imtiaz Peterson Reason for Consult: Altered mental status, short runs of V-tach 08/08/18 17:41 Consult [Physician Consult] Routine Comment: AMS, decline in functional status Consulting Provider: Rohan Gautam Consulting Physician: Rohan Gautam Reason for Consult: Evaluate and manage 08/13/18 12:48 TRCU [Evaluation for TRCU] Routine Comment: PT HOME AFTER Physician Instructions: SBA RECOMMENDED, FAMILY REQUESTING TRCU, WILL TAKE Reason For Exam: CONTINUATION IV AB'S, THERAPY Hospital Course - Lab Results Lab Results: Micro Results 08/07/18 17:52 Blood-Venous Blood Culture - Final NO GROWTH AFTER 5 DAYS 08/07/18 17:52 Blood-Venous Gram Stain - Final TEST NOT PERFORMED 08/07/18 16:40 Blood-Venous Blood Culture - Final NO GROWTH AFTER 5 DAYS 08/07/18 16:40 Blood-Venous Gram Stain - Final TEST NOT PERFORMED 08/07/18 18:00 Urine,Clean Catch Urine Culture - Final No Growth (<1,000 CFU/ML) Most Recent Lab Values WBC 8.5 10^3/uL (4.5-11.0) 08/15/18 06:00 RBC 4.23 10^6/uL (3.5-6.1) 08/15/18 06:00 Hgb 12.7 g/dL (14.0-18.0) L 08/15/18 06:00 Hct 39.1 % (42.0-52.0) L 08/15/18 06:00 MCV 92.4 fl (80.0-105.0) 08/15/18 06:00 MCH 30.0 pg (25.0-35.0) 08/15/18 06:00 MCHC 32.5 g/dl (31.0-37.0) 08/15/18 06:00 RDW 13.5 % (11.5-14.5) 08/15/18 06:00 Plt Count 212 10^3/uL (120.0-450.0) 08/15/18 06:00 MPV 10.0 fl (7.0-11.0) 08/15/18 06:00 Neut % (Auto) 71.2 % (50.0-68.0) H 08/15/18 06:00 Lymph % (Auto) 17.9 % (22.0-35.0) L 08/15/18 06:00 Bonner % (Auto) 7.3 % (1.0-6.0) H 08/15/18 06:00 Eos % (Auto) 3.4 % (1.5-5.0) 08/15/18 06:00 Baso % (Auto) 0.2 % (0.0-3.0) 08/15/18 06:00 Lymph # (Auto) 1.5 (1.2-3.4) 08/15/18 06:00 Bonner # (Auto) 0.6 (0.1-0.6) 08/15/18 06:00 Eos # (Auto) 0.3 (0.0-0.7) 08/15/18 06:00 Baso # (Auto) 0.02 K/mm3 (0.0-2.0) 08/15/18 06:00 Absolute Neuts (auto) 6.03 (1.4-6.5) 08/15/18 06:00 PT 22.1 SECONDS (9.4-12.5) H 08/15/18 06:00 INR 1.96 08/15/18 06:00 APTT 31.2 Seconds (26.9-38.3) 08/07/18 16:40 Sodium 139 mmol/L (132-148) 08/15/18 06:00 Potassium 3.4 mmol/L (3.6-5.0) L 08/15/18 06:00 Chloride 105 mmol/L (98-107) 08/15/18 06:00 Carbon Dioxide 28 mmol/L (21-33) 08/15/18 06:00 Anion Gap 9 (10-20) L 08/15/18 06:00 BUN 10 mg/dL (7-21) 08/15/18 06:00 Creatinine 0.7 mg/dl (0.8-1.5) L 08/15/18 06:00 Est GFR ( Amer) > 60 08/15/18 06:00 Est GFR (Non-Af Amer) > 60 08/15/18 06:00 Random Glucose 103 mg/dL (70-110) 08/15/18 06:00 Hemoglobin A1c 5.8 % (4.2-6.5) 08/08/18 10:00 Calcium 9.0 mg/dL (8.4-10.5) 08/15/18 06:00 Phosphorus 3.2 mg/dL (2.5-4.5) 08/07/18 16:40 Magnesium 1.9 mg/dL (1.7-2.2) 08/07/18 16:40 Total Bilirubin 0.6 mg/dL (0.2-1.3) 08/15/18 06:00 AST 28 U/L (17-59) 08/15/18 06:00 ALT 26 U/L (7-56) 08/15/18 06:00 Alkaline Phosphatase 59 U/L (38-126) 08/15/18 06:00 Lactate Dehydrogenase 500 U/L (333-699) 08/07/18 16:40 Total Creatine Kinase 39 U/L (35-230) 08/07/18 16:40 Troponin I < 0.01 ng/mL 08/07/18 16:40 Total Protein 6.8 g/dL (5.8-8.3) 08/15/18 06:00 Albumin 3.3 g/dL (3.0-4.8) 08/15/18 06:00 Globulin 3.4 gm/dL 08/15/18 06:00 Albumin/Globulin Ratio 1.0 (1.1-1.8) L 08/15/18 06:00 Triglycerides 132 mg/dL (35-160) 08/08/18 11:18 Cholesterol 122 mg/dL (130-200) L 08/08/18 11:18 LDL Cholesterol Direct 66 mg/dL (0-129) 08/08/18 11:18 HDL Cholesterol 24 mg/dL (29-60) L 08/08/18 11:18 Procalcitonin < 0.05 NG/ML (0.19-0.49) L 08/08/18 13:00 Free T4 1.08 ng/dL (0.78-2.19) 08/08/18 10:00 TSH 3rd Generation 0.69 mIU/mL (0.46-4.68) 08/08/18 10:00 Urine Color Yellow (YELLOW) 08/07/18 18:00 Urine Appearance Clear (CLEAR) 08/07/18 18:00 Urine pH 6.5 (4.7-8.0) 08/07/18 18:[address] [employer] [place] 1.020 (1.005-1.035) 08/07/18 18:00 Urine Protein 100 mg/dL (<30 mg/dL) H 08/07/18 18:00 Urine Glucose (UA) Negative mg/dL (NEGATIVE) 08/07/18 18:00 Urine Ketones 15 mg/dL (NEGATIVE) H 08/07/18 18:00 Urine Blood Negative (NEGATIVE) 08/07/18 18:00 Urine Nitrate Negative (NEGATIVE) 08/07/18 18:00 Urine Bilirubin Negative (NEGATIVE) 08/07/18 18:00 Urine Urobilinogen 0.2 E.U./dL (<1 E.U./dL) 08/07/18 18:00 Ur Leukocyte Esterase Negative Brianna/uL (NEGATIVE) 08/07/18 18:00 Urine RBC TEST NOT PERFORMED 08/07/18 18:00 Urine WBC 2 - 5 /hpf (0-6) 08/07/18 18:00 Ur Epithelial Cells 6 - 8 /hpf (0-5) H 08/07/18 18:00 Cryptococcus Ag Screen Not detected (Not Detected) 08/09/18 10:15 Influenza Typ A,B (EIA) Negative for flu a/b (NEGATIVE) 08/08/18 13:00 Ur L.pneumophila Ag Negative (NEGATIVE) 08/13/18 04:00 RSV Antigen Negative (NEGATIVE) 08/08/18 13:00 - Hospital Course Hospital Course: Pt seen and examined by me. I have reviewed the note of the medical insurance coder and I agree with it. I have discussed the assessment and plan with the resident. I have reviewed the medications and the last labs. Pt with Delirium that has improved. He had an elevated WCC that is normal. He has been on Vanco, Ceci, Doxy and Ceci. He was also on Tamiflu for possible Influenza. He may have a viral illness and now is improving. He has CAD with stents. His N/V has improved. He had a ARANDA and that has also improved. He is going to TCU for rehab. Spoke to the daughter this am to update her. Pt is eating better.
[2018-08-15] MEDS: Enoxaparin 60 mg Syringe SC SCH (10:48)
[2018-08-15] MEDS: Mesalamine ER Cap 500 MG PO SCH (10:48)
--- NOTE | 2018-08-15 17:11 | CP.PCM.PN ---
Subjective - Date & Time of Evaluation Date of Evaluation: 08/15/18 Time of Evaluation: 10:10 - Subjective Subjective: Comfortable on a chair, as per daughter, he would still get confused at times, no fevers. Objective - Vital Signs/Intake and Output Vital Signs (last 24 hours): Temp Pulse Resp BP Pulse Ox 97.9 F 63 18 155/76 H 96 08/15/18 06:00 08/15/18 10:48 08/15/18 06:00 08/15/18 10:48 08/15/18 06:00 Intake and Output: 08/15/18 08/15/18 06:59 18:59 Intake Total 890 Balance 890 - Labs Labs: 08/15/18 06:00 08/15/18 06:00 PT 22.1 SECONDS (9.4-12.5) H 08/15/18 06:00 INR 1.96 08/15/18 06:00 APTT 31.2 Seconds (26.9-38.3) 08/07/18 16:40 - Constitutional Appears: Chronically Ill - Head Exam Head Exam: NORMAL INSPECTION - Respiratory Exam Respiratory Exam: Decreased Breath Sounds - Cardiovascular Exam Cardiovascular Exam: +S1, +S2 - GI/Abdominal Exam GI & Abdominal Exam: Soft. absent: Tenderness Assessment and Plan - Assessment and Plan (Free Text) Plan: Assessment Systemic inflammatory response syndrome, with fevers, consider sepsis due to left sided HCAP, need to rule out meningoencephalitis, slowly improving CAD S/P CABG S/P PCI HTN history of TIA BPH ascending aortic aneurysm S/P repair S/P aortic valve replacement Crohn's disease dyslipidemia history of spinal laminectomy Plan continue Vancomycin, Merrem day 8 and Acyclovir day 7 and added Ampicillin; reviewed CXR which does not show infiltrates - target 10-14 days of antibiotics and antivirals reviewed CT C/A/P showing left sided nodular infiltrates would recommend lumbar puncture for CSF analysis - discussed with Dr. Marie previously - daughter refused due history of spinal surgery will continue to monitor clinically serum Crypt Ag is negative prognosis is guarded follow up further recommendations of Neurology
== END 2018-08-15 13:51 | DRG 871 ==
LOC: ED 16:06 → ERH 18:40 → 2RSO 22:29 → OBSVTOIN 08-08 15:39 → 2RSO 08-08 17:09 → 5RSO 08-13 14:34
PROVIDERS: ADMIT Internal Medicine Nephrology; ATTEND Internal Medicine Nephrology
DX: A41.9 Sepsis, unspecified organism (principal); J18.9 Pneumonia, unspecified organism; K50.90 Crohn's disease, unspecified, without complications; I47.2 Ventricular tachycardia; F05 Delirium due to known physiological condition; N40.0 Benign prostatic hyperplasia without lower urinary tract symptoms; I25.10 Atherosclerotic heart disease of native coronary artery without angina pectoris; I48.0 Paroxysmal atrial fibrillation; I11.0 Hypertensive heart disease with heart failure; I50.9 Heart failure, unspecified; E11.65 Type 2 diabetes mellitus with hyperglycemia; F03.90 Unspecified dementia, unspecified severity, without behavioral disturbance, psychotic disturbance, mood disturbance, and anxiety; E78.5 Hyperlipidemia, unspecified; I08.1 Rheumatic disorders of both mitral and tricuspid valves; I25.2 Old myocardial infarction; Z86.73 Personal history of transient ischemic attack (TIA), and cerebral infarction without residual deficits; Z95.1 Presence of aortocoronary bypass graft; Z95.5 Presence of coronary angioplasty implant and graft; Z95.2 Presence of prosthetic heart valve; Z79.01 Long term (current) use of anticoagulants; Z79.02 Long term (current) use of antithrombotics/antiplatelets; Z87.891 Personal history of nicotine dependence

== ENCOUNTER 2018-08-15 13:53 | Inpatient (IN) | payer MEDICARE, OTHER ==
[2018-08-15 14:26] VITALS: BMI 26.5
[2018-08-15] MEDS ORDERED: Enoxaparin 60 mg Syringe SC SCH (18:00)
[2018-08-15] MEDS ORDERED: Non Formulary Medication (Doxycycline Hyclate [Vibramycin] 100 MG) IVPB SCH (18:00)
[2018-08-15] MEDS ORDERED: Vancomycin 1gm in NS 250ml 1 GM/250 ML BAG IVPB SCH (18:00)
[2018-08-15] MEDS ORDERED: AMPicillin 2 GM in Sodium Chloride 0.9% 100 ML IVPB SCH (18:00)
[2018-08-15] MEDS ORDERED: Mesalamine ER Cap 500 MG PO SCH (18:00)
[2018-08-15 18:08] VITALS: BP 131/66; PULSE 70
[2018-08-15] MEDS: AMPicillin 2 GM in Sodium Chloride 0.9% 100 ML IVPB SCH (18:55)
[2018-08-15 20:13] VITALS: RESP 18; TEMP 98
[2018-08-15] MEDS ORDERED: Influenza Vaccine 60 mcg/0.5 mL SYR (4YR UP) IM ONE (20:13)
[2018-08-15] MEDS ORDERED: MEROPENEM 500 MG in NS 500 MG/50 ML BAG IVPB SCH (22:00)
[2018-08-15] MEDS ORDERED: Acyclovir 500 mg Inj IV SCH (22:00)
[2018-08-16] MEDS: AMPicillin 2 GM in Sodium Chloride 0.9% 100 ML IVPB SCH (00:09)
--- NOTE | 2018-08-16 02:56 | CP.PCM.PN ---
<KaitlinlilliTavia vargas - Last Filed: 08/16/18 02:51> Subjective - Date & Time of Evaluation Date of Evaluation: 08/16/18 Time of Evaluation: 01:10 - Subjective Subjective: PGY-3 progress note: Paged by nurse regarding patient complaining of headache. Upon evaluating patient, patient's daughter was at the bedside. States patient has been complaining of headache on/off for few days, and is been treated for meningitis. Patient's headache was relieved with Tylenol yesterday, however tonight Tylenol didn't help. Patient was giving Tylenol at midnight with no significant improvement . Upon exam: patient is a&ox3, no focal deficit, no motor weakness in steve upper and lower extremities flexion/extension Vitals relieved SBP in the 150s. Plan: I offered patient a stronger pain med such as tramadol or percocet, daughter refused, states her dad doesn't tolerate stronger pain meds. Agreed on rechecking vitals in 2 hours, and consider CT head if the headache remains persistent. Objective - Vital Signs/Intake and Output Vital Signs (last 24 hours): Temp Pulse Resp BP Pulse Ox 98 F 70 18 131/66 08/15/18 20:01 08/15/18 20:01 08/15/18 20:01 08/15/18 20:01 - Medications Medications: Current Medications Acetaminophen (Tylenol 650 Mg Supp) 650 mg RC Q4H PRN PRN Reason: Fever >100.4 F Acetaminophen (Tylenol 325mg Tab) 650 mg PO Q4H PRN; Protocol PRN Reason: Headache or fever >100.4 Last Admin: 08/16/18 00:02 Dose: 650 mg Atorvastatin Calcium (Lipitor) 20 mg PO DIN [facility]; Protocol Last Admin: 08/15/18 18:00 Dose: 20 mg Carvedilol (Coreg) 6.25 mg PO 0800,1800 [facility]; Protocol Last Admin: 08/15/18 18:01 Dose: 6.25 mg Clopidogrel Bisulfate (Plavix) 75 mg PO DAILY [facility]; Protocol Enoxaparin Sodium (Lovenox) 60 mg SC 0600,1800 [facility]; Protocol Last Admin: 08/15/18 18:04 Dose: 60 mg Finasteride (Proscar) 5 mg PO DAILY [facility] Meropenem/Sodium Chloride (Merrem Iv 500 Mg/Ns 50 Ml) 500 mg in 50 mls @ 100 mls/hr IVPB Q8 [facility]; Protocol Stop: 08/22/18 22:01 Last Admin: 08/15/18 21:53 Dose: 100 mls/hr Vancomycin HCl (Vancomycin 1gm) 1 gm in 250 mls @ 167 mls/hr IVPB 0600,1800 [facility]; Protocol Last Admin: 08/15/18 18:06 Dose: 167 mls/hr Acyclovir 600 mg/ Sodium (Chloride) 100 mls @ 100 mls/hr IV Q8 [facility]; Protocol Stop: 08/22/18 15:01 Last Admin: 08/15/18 21:54 Dose: 100 mls/hr Ampicillin 2 gm/ Sodium (Chloride) 100 mls @ 200 mls/hr IVPB Q6 [facility] Last Admin: 08/16/18 00:09 Dose: 200 mls/hr Doxycycline Hyclate 100 mg/ (Sodium Chloride) 100 mls @ 100 mls/hr IVPB 0600,1800 [facility] Last Admin: 08/15/18 18:06 Dose: 100 mls/hr Mesalamine (Pentasa) 1,500 mg PO BID [facility] Last Admin: 08/15/18 18:04 Dose: 1,500 mg Pantoprazole Sodium (Protonix Ec Tab) 40 mg PO 0630 [facility]; Protocol Warfarin Sodium (Coumadin) 7.5 mg PO 1800 [facility] Last Admin: 08/15/18 18:01 Dose: 7.5 mg <Cris Chiu - Last Filed: 08/16/18 19:23> Objective - Vital Signs/Intake and Output Vital Signs (last 24 hours): Temp Pulse Resp BP Pulse Ox 98 F 70 18 131/66 08/15/18 20:01 08/15/18 20:01 08/15/18 20:01 08/15/18 20:01 Attending/Attestation - Attestation I have personally seen and examined this patient.: No I have fully participated in the care of the patient.: No I have reviewed all pertinent clinical information, including history, physical exam and plan: No
--- NOTE | 2018-08-16 04:15 | PCM.RRT ---
<Tavia Estrada - Last Filed: 08/16/18 04:49> PATTERN DRAFTER Nurse Assessment - Situation Date: 08/16/18 Time PATTERN DRAFTER was called: 03:30 PATTERN DRAFTER Responder Arrival Time: 03:35 PATTERN DRAFTER Location:: Transitional Care Unit Room Number: 327-2 PATTERN DRAFTER Reason for Call: Possible Stroke, Change in Mental Status PATTERN DRAFTER Called By: RN, Patient/Family Request - IV IV Inserted during PATTERN DRAFTER?: No - Respiratory Oxygen Delivery Method: Room Air - Diagnostic Test Ordered CT Scan: Yes Other Diagnostic Test Ordered: CTA neck and head - Vital Signs Vital Sign: BP 161/76 RR 18 O2 sat 98 on room air - Finger Stick Blood Glucose Finger Stick Blood Glucose: 119 - [place]ba Coma Scale Coma Scale Eye Opening: Spontaneous Coma Scale Motor: Obeys Commands Movement Coma Scale Verbal: Oriented - Time PATTERN DRAFTER Ended Time PATTERN DRAFTER Ended: 03:40 - Vital Signs at end of PATTERN DRAFTER Vital Signs at end of PATTERN DRAFTER: BP 146/70 RR 18 O2 sat 98% room air - Recommendations 5) PATTERN DRAFTER Level of Care Recommendations: Discharge to Emergency Room Notifications: Attending Physician, Consultations, Family or Designated Caregiver I.Reason for PATTERN DRAFTER - A) Acute Change in Patient: Subjective: Patient is an 88 y/o Male with PMHx of TIA, BPH, CABG s/p [place], CAD with coronary stents, hypertension, ascending thoracic aneurysm repair, AV valve replacement, Crohn's disease, and dyslipidemia, who presented with headache and nausea on 08/07, was being treated for possible meningitis and pneumonia. Patient was transferred to TCU for IV meds and PT. At around 1 am patient complaining of headache, Tylenol was giving with no relief. At around 03:29 AM, patient's daughter reported patient had change in mental status, was staring at the ceiling. PATTERN DRAFTER was called. Upon evaluating patient, patient had a transient moment of mutism, and staring straight to the ceiling, then patient became verbal, was able to follow commands, and was a&ox3. Patient admits to headache, denies cp or sob. - Neurological Status (Select all that apply): Alert, Responsive, Oriented, Verbal, Follows Commands, Weakness (left upper and lower extremities weakness) - Respiratory Oxygen Delivery Method: Room Air - Constitutional Appears: No Acute Distress, Chronically Ill - Head Head Exam: ATRAUMATIC, NORMAL INSPECTION, NORMOCEPHALIC - Eyes Eye Exam: Conjunctival injection (on the left ), EOMI - Respiratory Exam Respiratory Exam: Clear to Ausculation Bilateral, NORMAL BREATHING PATTERN. absent: Rales, Rhonchi, Wheezes, Respiratory Distress, Stridor - Cardiovascular Exam Cardiovascular Exam: REGULAR RHYTHM, +S1, +S2, Murmur - GI/Abdominal Exam GI & Abdominal Exam: Soft, Normal Bowel Sounds. absent: Distended, Firm, Guarding, Rigid, Tenderness - Neurological Exam Neurological Exam: Alert, Awake, CN II-XII Intact, Motor Sensory Deficit (4/5 weakness on the left upper and lower extremities, + drift on the left upper extremities, unable to hold left lower extremities against gravity, sensation i ntact in steve upper and lower extremities.), Oriented x3 - Extremities Exam Extremities Exam: Normal Inspection Plan - Assessment of Findings&Treatment Plan Code stroke was called at 3:36AM CT head w/o contrast, CTA neck and head Patient to get transferred to the ED for readmission to the floor, possibly tele Patient is on Coumadin and plavix as part of his home meds Dr. Marie, patient's primary is aware. Recommend Dr. Gentile as the neurologist Spoke with neurologist, Dr. Lopez around 0409 AM, recommends CT head w/o contrast, CTA head and neck, and MRI in the morning. Dr Chandra is aware and agrees with the plan of ER transfer and stroke work up. <Cris Chiu - Last Filed: 08/16/18 19:23> PATTERN DRAFTER Nurse Assessment - Vital Signs Vital Sign: Rapid Response Vital Sign Blood Pressure 161/76 Pulse Rate 65 Respiratory Rate 18 Temperature 98.8 F Oxygen Saturation 97 Attending/Attestation - Attestation I have personally seen and examined this patient.: No I have fully participated in the care of the patient.: No I have reviewed all pertinent clinical information, including history, physical exam and plan: No
[2018-08-16] MEDS ORDERED: Pantoprazole 40 mg EC Tab PO SCH (06:30)
--- NOTE | 2018-08-16 08:29 | CT ---
Date of service: 08/16/2018 PROCEDURE: CT HEAD WITHOUT CONTRAST. HISTORY: ams, Left upper and lower extremities weakness COMPARISON: 08/08/2018 TECHNIQUE: Axial computed tomography images were obtained through the head/brain without intravenous contrast. Radiation dose: Total exam DLP = 929.75 mGy-cm. This CT exam was performed using one or more of the following dose reduction techniques: Automated exposure control, adjustment of the mA and/or kV according to patient size, and/or use of iterative reconstruction technique. FINDINGS: HEMORRHAGE: No intracranial hemorrhage. BRAIN: No mass effect or edema. Severe chronic microvascular changes are seen in the periventricular white matter. There is focal encephalomalacia in the right parietal lobe. There are no acute findings VENTRICLES: Unremarkable. No hydrocephalus. CALVARIUM: Unremarkable. PARANASAL SINUSES: Unremarkable as visualized. No significant inflammatory changes. MASTOID AIR CELLS: Unremarkable as visualized. No inflammatory changes. OTHER FINDINGS: The report concurs with the preliminary [facility] report IMPRESSION: Severe chronic microvascular changes are seen in the periventricular white matter. There is focal encephalomalacia in the right parietal lobe. There are no acute findings
--- NOTE | 2018-08-16 08:49 | CP.PCM.HP ---
<Gerardo Arce - Last Filed: 08/16/18 08:54> History of Present Illness - History of Present Illness History of Present Illness: H&P for Dr Marie: 88 year old male, whose past medical history includes TIA, BPH, CABG s/p [place], CAD with coronary stents, hypertension, ascending thoracic aneurysm repair, AV valve replacement, Crohn's disease, and dyslipidemia, presents with headache and nausea. Patient was found to have Sirs criteria in the emergency room. UA and chest x-ray were performed and were negative. CT of the head was performed that was negative. Patient did have a white count of 16.2 and was started on cefepime. Patient was admitted to telemetry for continued monitoring. Patient became more delirious, and was febrile for the following 2 days. Infectious disease and neurology were consulted. Infectious disease placed the patient on Vanco, karan, ampicillin, and doxycycline. Patient was also started on Tamiflu for possible viral illness with influenza. They also recommended a lumbar puncture. Neurology evaluated the patient and also recommended a lumbar punctur e. Patient's daughter refused any procedure including lumbar puncture as the patient had prior history of spinal surgery. Patient's symptoms including his delirium, and his fevers both have improved. Patient is clinically feeling better and as per the daughter is back to his baseline. Physical therapy evaluated the patient and recommended TCU. Patient was dicharged to TCU. Overnight a VALUER was called followed for a code stroke. Patient was reportedly not responding initially. Patient was taken to the ED. At this time I was not present and was not evaluated by me in the TCU. PMH: As above PSH: CABG Allergies: Pneumococcal vaccine, anesthetics including alejandra type parabens SH: Former smoker over 30 years ago, denies any drinking or drugs FH: Denies Present on Admission - Present on Admission Any Indicators Present on Admission: No Past Patient History - Infectious Disease Hx of Infectious Diseases: None - Past Social History Smoking Status: Never Smoked - CARDIAC Hx Cardiac Disorders: Yes (CABG s/p [place], CAD with coronary stents,) Hx Congestive Heart Failure: Yes Hx Hypercholesterolemia: Yes (Dyslipidemia,) Hx Hypertension: Yes - PULMONARY Hx Respiratory Disorders: Yes Hx Pneumonia: Yes - NEUROLOGICAL HX Cerebrovascular Accident: Yes - HEENT Hx HEENT Problems: Yes Hx Cataracts: Yes - RENAL Hx Chronic Kidney Disease: No - ENDOCRINE/METABOLIC Hx Diabetes Mellitus Type 2: Yes - HEMATOLOGICAL/ONCOLOGICAL Hx Blood Disorders: No - INTEGUMENTARY Hx Dermatological Problems: No - MUSCULOSKELETAL/RHEUMATOLOGICAL Hx Falls: Yes - GASTROINTESTINAL Hx Gastrointestinal Disorders: Yes (DIVERTICULOSIS,CROHNS) - GENITOURINARY/GYNECOLOGICAL Hx Genitourinary Disorders: Yes Hx Reproductive Disorders: Yes (ENLARGED PROSTATE BPH) - PSYCHIATRIC Hx Emotional Abuse: No Hx Physical Abuse: No Hx Substance Use: No - SURGICAL HISTORY Hx Cardiac Catheterization: Yes Hx Coronary Stent: Yes Hx Open Heart Surgery: Yes Other/Comment: cataract surgery - ANESTHESIA Hx Anesthesia Reactions: No Hx Malignant Hyperthermia: No Meds Allergies/Adverse Reactions: Allergies Allergy/AdvReac Type Severity Reaction Status Date / Time pneumococcal vaccine Allergy Severe RASH Verified 08/16/18 12:39 Anesthetics - Alejandra Type- AdvReac ANAPHYLAXIS Verified 08/16/18 12:39 Parabens Results - Vital Signs Recent Vital Signs: Last Vital Signs Temp 98 F 08/15/18 20:01 Pulse 70 08/15/18 20:01 Resp 18 08/15/18 20:01 BP 131/66 08/15/18 20:01 Pulse Ox - Labs Labs: Laboratory Results - last 24 hr 08/16/18 03:30 POC Glucose (mg/dL) 119 H Assessment & Plan - Assessment and Plan (Free Text) Assessment: 1. Sepsis likely 2/2 HCAP r/p meningoencephalitis 2. Delirium 3. headaches 4. nausea vomiting 5. CAD with CABG and stent placement 6. Hypertension 7. BPH 8. History of TIA 9. Crohn's disease Cont rehab in the TCU. Cont vancomycin, meropenem, doxy, Ampicilin and acyclovir as per ID. Follow-up neurology recommendations- conservative management as patients daughter is refusing LP due to prior spinal sx. ID also recommended a spinal lumbar puncture tap however the patient's daughter refused. Patient with a history of TIAs therefore we will continue Plavix. History of valve replacement and therefore on Coumadin, INR therapeutic. Monitor INR daily. We will continue with Lipitor for his hyperlipidemia, continue with Coreg for his hypertension, continue with mesalamine for his Crohn's disease. Septic workup thus far negative. GI/DVT ppx. We will continue to monitor for any changes. Case and plan was reviewed and discussed with Dr. Marie <Reji Marie S - Last Filed: 08/16/18 16:37> Results - Vital Signs Recent Vital Signs: Last Vital Signs Temp 98 F 08/15/18 20:01 Pulse 70 08/15/18 20:01 Resp 18 08/15/18 20:01 BP 131/66 08/15/18 20:01 Pulse Ox - Labs Labs: Laboratory Results - last 24 hr 08/16/18 03:30 POC Glucose (mg/dL) 119 H Assessment & Plan - Assessment and Plan (Free Text) Assessment: Patient was seen and examined by me. I have reviewed the note of the medical affairs director and have gone over the plan of care. I agree with the note. I have reviewed the medications and the last labs.
--- NOTE | 2018-08-16 08:50 | CP.PCM.DIS ---
<Gerardo Arce - Last Filed: 08/16/18 08:54> Provider - Provider Date of Admission: 08/15/18 13:53 Attending physician: Reji Marie MD Primary care physician: Reji Marie MD Consults: 08/15/18 14:59 Physician Consult Routine Comment: Consulting Provider: Rodney Gentile Consulting Physician: Rodney Gentile Reason for Consult: AMS 08/15/18 15:01 Physician Consult Routine Comment: Consulting Provider: Rohan Gautam Consulting Physician: Rohan Gautam Reason for Consult: ID Physician Consult Routine Comment: Consulting Provider: Imtiaz Peterson Consulting Physician: Imtiaz Peterson Reason for Consult: AMS Time Spent in preparation of Discharge (in minutes): 45 Hospital Course - Lab Results Lab Results: Most Recent Lab Values POC Glucose (mg/dL) 119 mg/dL (65-110) H 08/16/18 03:30 - Hospital Course Hospital Course: 88 year old male, whose past medical history includes TIA, BPH, CABG s/p [place], CAD with coronary stents, hypertension, ascending thoracic aneurysm repair, AV valve replacement, Crohn's disease, and dyslipidemia, presents with headache and nausea. Patient was found to have Sirs criteria in the emergency room. UA and chest x-ray were performed and were negative. CT of the head was performed that was negative. Patient did have a white count of 16.2 and was started on cefepime. Patient was admitted to telemetry for continued monitoring. Patient became more delirious, and was febrile for the following 2 days. Infectious disease and neurology were consulted. Infectious disease placed the patient on Vanco, karan, ampicillin, and doxycycline. Patient was also started on Tamiflu for possible viral illness with influenza. They also recommended a lumbar puncture. Neurology evaluated the patient and also recommended a lumbar puncture. Patient's daughter refused any procedure including lumbar puncture as the patient had prior history of spinal surgery. Patient's symptoms including his delirium, and his fevers both have improved. Patient is clinically feeling better and as per the daughter is back to his baseline. Physical therapy evaluated the patient and recommended TCU. Patient was discharged to TCU. Overnight a RN ER was called followed for a code stroke. Patient was reportedly not responding initially with some ext weakness. Patient was taken to the ED. At this time I was not present and was not evaluated by me in the TCU. Patient was transferred to the ED for further management and work up. CTH was ordered, and neurology consult and recs. Discharge Exam - Head Exam Head Exam: ATRAUMATIC, NORMAL INSPECTION, NORMOCEPHALIC Discharge Plan - Follow Up Plan Condition: GOOD Disposition: Still A Patient Referrals: Reji Marie MD [Primary Care Provider] - <Reji Marie - Last Filed: 08/16/18 16:37> Provider - Provider Date of Admission: 08/15/18 13:53 Attending physician: Reji Marie MD Primary care physician: Reji Marie MD Consults: 08/15/18 14:59 Physician Consult Routine Comment: Consulting Provider: Rodney Gentile Consulting Physician: Rodney Gentile Reason for Consult: AMS 08/15/18 15:01 Physician Consult Routine Comment: Consulting Provider: Rohan Gautam Consulting Physician: Rohan Gautam Reason for Consult: ID Physician Consult Routine Comment: Consulting Provider: Imtiaz Peterson Consulting Physician: Imtiaz Peterson Reason for Consult: AMS Hospital Course - Lab Results Lab Results: Most Recent Lab Values POC Glucose (mg/dL) 119 mg/dL (65-110) H 08/16/18 03:30 - Hospital Course Hospital Course: see the H and P for my notes
== END 2018-08-16 04:27 | disposition short-term general hospital (02) | DRG 871 ==
LOC: TRCU 13:53
PROVIDERS: ADMIT Internal Medicine Nephrology; ATTEND Internal Medicine Nephrology
DX: A41.9 Sepsis, unspecified organism (principal); J18.9 Pneumonia, unspecified organism; K50.90 Crohn's disease, unspecified, without complications; N40.0 Benign prostatic hyperplasia without lower urinary tract symptoms; I25.10 Atherosclerotic heart disease of native coronary artery without angina pectoris; I11.0 Hypertensive heart disease with heart failure; I50.9 Heart failure, unspecified; E78.5 Hyperlipidemia, unspecified; E11.9 Type 2 diabetes mellitus without complications; R53.1 Weakness; I25.2 Old myocardial infarction; Y95 Nosocomial condition; Z86.73 Personal history of transient ischemic attack (TIA), and cerebral infarction without residual deficits; Z95.1 Presence of aortocoronary bypass graft; Z95.2 Presence of prosthetic heart valve; Z95.5 Presence of coronary angioplasty implant and graft; Z87.891 Personal history of nicotine dependence

== ENCOUNTER 2018-08-16 04:28 | Observation (INO) | payer MEDICARE, OTHER ==
[~2018-08-16 04:28] MED LIST: Iodixanol 320 MG/ML 100 ML BOTTLE IV ONE
[2018-08-16 04:37] VITALS: RESP 18; BMI 25.0
--- NOTE | 2018-08-16 04:48 | EDPD ---
HPI Stroke - General Time Seen by Provider: 08/16/18 04:31 Historian: Family, Other (Medical Team) - History of Present Illness Narrative History of Present Illness (Free Text): 08/16/18 04:46 Donnie Salmeron is an 88 year old male, whose past medical history includes TIA, BPH, CABG s/p AR, CAD with coronary stents, hypertension, ascending thoracic aneurysm repair, AV valve replacement, Crohn's disease, and dyslipidemia, who presents to the Emergency department transferred from Transitional Care Unit accompanied by family complaining of weakness. vice president of customer service and house physician were called, patient noted to have a blank stare and some mild left-sided upper and lower extremity weakness. Code Stroke was activated at 03:36 in TCU. Medical team discussed case with Dr. Lopez, neurologist, prior to arrival in Emergency department. They were informed if CT Head was normal, no further intervention needed. Patient currently on Coumadin. On arrival to Emergency department, patient appears to back to his normal state. Patient's daughter present at bedside. Patient denies any headache, visual disturbances, or any other complaints. Date:: 08/16/18 Time: 04:30 Onset:: Just prior to presenting Timing: Improved Exacerbated by: Nothing Relieved by: Nothing - Location Location: Mental Status, Speech rTPA Inclusion/Exclusion - Refusal of Treatment Patient Refused Treatment: No - Inclusion Criteria for Altepase Patient is 18 years or Older: Yes The Clinical Diagnosis of Ischemic Stroke That is Causing a Potentially Disabling Neurological Deficit: No Time of Onset is Well Established to be Less Than 270 Minute Before Treatment Would Begin: Yes Risk/Benefit Discussed With Patient/Family Member Present: Yes - Exclusion Criteria for Altepase Uncontrolled Hypertension at Time of Treatment (Systolic BP above 185 or Diastolic BP above 110 mmHg): No Active Internal Bleeding: No Known Bleeding Diathesis Including but Not Limited to: Platelets Below 100,000/mm,PTT Above 40 sec After Heparin Use, Current Use of Oral Anitcoagulant With INR Greater Than 1.7 or PT Greater Than 15 secs: No Evidence of an Intracranial Hemorrhage: No Evidence of Major Acute Infarct With Signs Greater Than 1/3 MCA Territory: No Suspicion of Subarachnoid Hemorrhage on Pretreatment Evaluation Even if CT Head Negative For Hemorrhage: No - Warning to TPA With Conditions Following Conditions Weighed Against Anticipated Benefit: Yes Condition: Rapid Improvement, Age Greater Than 75 years Past Medical History - Provider Review Nursing Documentation Reviewed: Yes - Infectious Disease Hx of Infectious Diseases: None - Cardiac Hx Cardiac Disorders: Yes (CABG s/p AR, CAD with coronary stents,) Hx Congestive Heart Failure: Yes Hx Hypertension: Yes - Pulmonary Hx Respiratory Disorders: Yes Hx Pneumonia: Yes - Neurological HX Cerebrovascular Accident: Yes - HEENT Hx HEENT Disorder: Yes Hx Cataracts: Yes - Renal Hx Renal Disorder: No - Endocrine/Metabolic Hx Diabetes Mellitus Type 2: Yes - Hematological/Oncological Hx Blood Disorders: No - Integumentary Hx Dermatological Disorder: No - Musculoskeletal/Rheumatological Hx Falls: Yes - Gastrointestinal Hx Gastrointestinal Disorders: Yes (DIVERTICULOSIS,CROHNS) - Genitourinary/Gynecological Hx Genitourinary Disorders: Yes Hx Reproductive Disorders: Yes (ENLARGED PROSTATE BPH) - Psychiatric Hx Emotional Abuse: No Hx Physical Abuse: No Hx Substance Use: No - Surgical History Hx Cardiac Catheterization: Yes Hx Coronary Stent: Yes Hx Open Heart Surgery: Yes Other/Comment: cataract surgery - Anesthesia Hx Anesthesia Reactions: No Hx Malignant Hyperthermia: No - Suicidal Assessment Feels Threatened In Home Enviroment: No Family/Social History - Family/Social History Family History: Non-Contributory - DrYefri Review Nursing documentation reviewed.: Yes Allergies/Home Meds Allergies/Adverse Reactions: Allergies pneumococcal vaccine Allergy (Severe, Verified 08/15/18 17:47) RASH Anesthetics - Alejandra Type- Parabens Adverse Reaction (Verified 08/15/18 17:47) ANAPHYLAXIS Home Medications: Home Meds Medication Instructions Recorded Confirmed Mesalamine [Pentasa] 1,500 mg PO BID 09/02/15 08/15/18 Simvastatin [Zocor] 40 mg PO DAILY 11/09/15 08/15/18 Warfarin [Coumadin] 4 mg PO DAILY 11/09/15 08/15/18 metFORMIN [glucOPHAGE] 500 mg PO TID 03/01/16 08/15/18 Review of Systems - Physician Review All systems were reviewed & negative as marked: Yes - Review of Systems Constitutional: Normal. absent: Fevers Eyes: Normal ENT: Normal Respiratory: Normal. absent: SOB, Cough Cardiovascular: Normal. absent: Chest Pain Gastrointestinal: Normal. absent: Abdominal Pain, Diarrhea, Nausea, Vomiting Genitourinary Male: Normal. absent: Dysuria, Frequency, Hematuria, Urinary Output Changes Musculoskeletal: Normal. absent: Back Pain, Neck Pain Skin: Normal. absent: Rash Neurological: Focal Weakness, Other (+blank stare) Endocrine: Normal Hemo/Lymphatic: Normal Psychiatric: Normal ED Stroke Physical Exam Vital Signs Reviewed: Yes Vital Signs Temp Pulse Resp BP Pulse Ox 08/16/18 04:36 97.8 F 66 18 146/70 95 Temperature: Afebrile Blood Pressure: Normal Pulse: Regular Respiratory Rate: Normal Appearance: Positive for: Well-Appearing, Non-Toxic, Comfortable Pain Distress: None Mental Status: Positive for: Alert and Oriented X 3 - Systems Exam Head: Present: Atraumatic, Normocephalic Pupils: Present: PERRL Extroacular Muscles: Present: EOMI Conjunctiva: Present: Normal Mouth: Present: Moist Mucous Membranes Neck: Present: Normal Range of Motion Respiratory/Chest: Present: Clear to Auscultation, Good Air Exchange. No: Respiratory Distress, Accessory Muscle Use Cardiovascular: Present: Regular Rate and Rhythm, Normal S1, S2. No: Murmurs Abdomen: Present: Normal Bowel Sounds. No: Tenderness, Distention, Peritoneal Signs Back: Present: GCS, CN, SP Upper Extremity: Present: Normal Inspection. No: Cyanosis, Edema Lower Extremity: Present: Normal Inspection. No: Edema Neurologic: Present: GCS=15, CN II-XII Intact, Speech Normal, Motor Func Grossly Intact, Normal Sensory Function, Normal Cerebellar Funct. No: Facial Droop, Dysmetric Heel to Chin Skin: Present: Warm, Dry, Normal Color. No: Rashes Lymphatic: Present: OX3, NI, NC Psychiatric: Present: Alert, Oriented x 3, Normal Insight, Normal Concentration Medical Decision Making ED Course and Treatment: 08/16/18 04:46 Impression: 88 year old male transferred from TCU for a blank stare and mild left-sided weakness. Code Stroke was called by hospitalist team at 03:36. Plan: -- EKG -- Chest X-ray -- Labs, blood type and screen, troponin, lipid panel -- IV fluids -- Reassess and disposition Prior Visits: Notes and results from previous visits were reviewed. Progress Notes: CT Head and CTA Head/Neck ordered by medical team prior to arrival in Emergency department. 08/16/18 05:[address] Marie, who is aware and agrees with plan. Accepts pt in to his service. Pt will go to Telemetry observation for TIA. 08/16/18 05:48 Reviewed EKG, NSR at 67 bpm. Anteroseptal infarct. Non-specific ST/T wave changes. - RAD Interpretation Radiology Orders: 08/16/18 04:39 CHEST PORTABLE [RAD] Stat BRAIN WITHOUT CONTRAST [MRI] Routine - EKG Interpretation Interpreted by ED Physician: Yes Type: 12 lead EKG - Medication Orders Current Medication Orders: Sodium Chloride (Sodium Chloride 0.9%) 1,000 mls @ 100 mls/hr IV .Q10H [facility] - Scribe Statement The provider has reviewed the documentation as recorded by the Scribe Maria Westfall Provider Scribe Attestation: All medical record entries made by the Scribe were at my direction and personally dictated by me. I have reviewed the chart and agree that the record accurately reflects my personal performance of the history, physical exam, medical decision making, and the department course for this patient. I have also personally directed, reviewed, and agree with the discharge instructions and disposition. NIHSS Scale ([place]) Time Performed: 04:30 - How Severe is the Stoke Baseline Level of Consciousness: 0=Alert LOC to Questions: 0=Both comments correct LOC to commands: 0=Obeys both correctly Best Gaze: 0=Normal Visual: 0=No visual loss Facial: 0=Normal Motor Arm - Left: 0=No drift Motor Arm - Right: 0=No drift Motor Leg - Left: 0=No drift Motor Leg - Right: 0=No drift Limb Ataxia: 0=Absent Sensory: 0=Normal Best Language: 0=No aphasia Dysarthia: 0=Normal articulation Extinction & Inattention (Neglect): 0=Normal, no object Score: 0 Risk Level: No Stroke Risk Disposition/Present on Arrival - Present on Arrival Any Indicators Present on Arrival: No History of DVT/PE: No History of Uncontrolled Diabetes: No Urinary Catheter: No History of Decub. Ulcer: No History Surgical Site Infection Following: None - Disposition Have Diagnosis and Disposition been Completed?: Yes Diagnosis: TIA (transient ischemic attack) Disposition: HOSPITALIZED Disposition Time: 05:09 Patient Problems: Current Active Problems Problem Status Onset TIA (transient ischemic attack) Acute Condition: STABLE
[2018-08-16] MEDS: Sodium Chloride 0.9% 1,000 ML IV SCH ×2 (05:00→16:12)
[2018-08-16 05:31] LABS: BASO # 0.02 K/mm3 (0.0-2.0); BASO % 0.2 % (0.0-3.0); EOS # 0.3 (0.0-0.7); EOS % 2.9 % (1.5-5.0); HEMOGLOBIN 13.2 g/dL (14.0-18.0); LYMPH # 1.7 (1.2-3.4); LYMPH % 16.9 % (22.0-35.0); MEAN CELL VOLUME 92.6 fl (80.0-105.0); MEAN CORPUSCULAR HEMOGLOBIN 30.6 pg (25.0-35.0); MONO # 0.8 (0.1-0.6); MONO % 7.8 % (1.0-6.0); RBC 4.32 10^6/uL (3.5-6.1); RED CELL DISTRIBUTION WIDTH 13.3 % (11.5-14.5); WHITE BLOOD COUNT 9.8 10^3/uL (4.5-11.0)
[2018-08-16 06:53] LABS: INR 3.47; PROTHROMBIN TIME 39.2 SECONDS (9.4-12.5)
[2018-08-16 07:02] LABS: TROPONIN I 0.02 ng/mL
[2018-08-16 07:03] LABS: LDL CHOLESTEROL 53 mg/dL (0-129)
[2018-08-16 07:13] LABS: ALBUMIN 3.8 g/dL (3.0-4.8); ALT/SGPT 27 U/L (7-56); AST/SGOT 37 U/L (17-59); BLOOD UREA NITROGEN 8 mg/dL (7-21); CALCIUM 9.5 mg/dL (8.4-10.5); GFR NON-AFRICAN AMERICAN > 60; HDL CHOLESTEROL 20 mg/dL (29-60)
[2018-08-16] MEDS ORDERED: Acetaminophen 650mg/20.3ml solution UD PO STA (07:56)
[2018-08-16] MEDS ORDERED: Enoxaparin 60 mg Syringe SC SCH (08:30)
[2018-08-16] MEDS ORDERED: Acyclovir 500 mg Inj IV SCH (08:30)
[2018-08-16] MEDS ORDERED: Vancomycin 1gm in NS 250ml 1 GM/250 ML BAG IVPB SCH (08:30)
[2018-08-16] MEDS ORDERED: MEROPENEM 500 MG in NS 500 MG/50 ML BAG IVPB SCH (08:30)
--- NOTE | 2018-08-16 08:40 | CP.PCM.HP ---
<Gerardo Arce - Last Filed: 08/16/18 08:44> History of Present Illness - History of Present Illness History of Present Illness: H&P for Dr Marie: 88 year old male, whose past medical history includes TIA, BPH, CABG s/p [place], CAD with coronary stents, hypertension, ascending thoracic aneurysm repair, AV valve replacement, Crohn's disease, and dyslipidemia, presents with headache and naus ea. Patient was found to have Sirs criteria in the emergency room. UA and chest x-ray were performed and were negative. CT of the head was performed that was negative. Patient did have a white count of 16.2 and was started on cefepime. Patient was admitted to telemetry for continued monitoring. Patient became more delirious, and was febrile for the following 2 days. Infectious disease and ne urology were consulted. Infectious disease placed the patient on Vanco, karan, ampicillin, and doxycycline. Patient was also started on Tamiflu for possible viral illness with influenza. They also recommended a lumbar puncture. Neurology evaluated the patient and also recommended a lumbar puncture. Patient's daughter refused any procedure including lumbar puncture as the patient had prior history of spinal surgery. Patient's symptoms including his delirium, and his fevers both have improved. Patient is clinically feeling better and as per the daughter is back to his baseline. Physical therapy evaluated the patient and recommended TCU. Patient was dicharged to TCU. Overnight a RADIAGRAPH OPERATOR was called followed for a code stroke. Patient was reportedly not responding initially. Patient was taken to the ED. At this time I was not present and was not evaluated by me in the TCU. PMH: As above PSH: CABG Allergies: Pneumococcal vaccine, anesthetics including alejandra type parabens SH: Former smoker over 30 years ago, denies any drinking or drugs FH: Denies Present on Admission - Present on Admission Any Indicators Present on Admission: No Past Patient History - Infectious Disease Hx of Infectious Diseases: None - Past Social History Smoking Status: Never Smoked - CARDIAC Hx Cardiac Disorders: Yes (CABG s/p [place], CAD with coronary stents,) Hx Congestive Heart Failure: Yes Hx Hypertension: Yes - PULMONARY Hx Respiratory Disorders: Yes Hx Pneumonia: Yes - NEUROLOGICAL HX Cerebrovascular Accident: Yes - HEENT Hx HEENT Problems: Yes Hx Cataracts: Yes - RENAL Hx Chronic Kidney Disease: No - ENDOCRINE/METABOLIC Hx Diabetes Mellitus Type 2: Yes - HEMATOLOGICAL/ONCOLOGICAL Hx Blood Disorders: No - INTEGUMENTARY Hx Dermatological Problems: No - MUSCULOSKELETAL/RHEUMATOLOGICAL Hx Falls: Yes - GASTROINTESTINAL Hx Gastrointestinal Disorders: Yes (DIVERTICULOSIS,CROHNS) - GENITOURINARY/GYNECOLOGICAL Hx Genitourinary Disorders: Yes Hx Reproductive Disorders: Yes (ENLARGED PROSTATE BPH) - PSYCHIATRIC Hx Emotional Abuse: No Hx Physical Abuse: No Hx Substance Use: No - SURGICAL HISTORY Hx Cardiac Catheterization: Yes Hx Coronary Stent: Yes Hx Open Heart Surgery: Yes Other/Comment: cataract surgery - ANESTHESIA Hx Anesthesia Reactions: No Hx Malignant Hyperthermia: No Meds Allergies/Adverse Reactions: Allergies Allergy/AdvReac Type Severity Reaction Status Date / Time pneumococcal vaccine Allergy Severe RASH Verified 08/16/18 12:39 Anesthetics - Alejandra Type- AdvReac ANAPHYLAXIS Verified 08/16/18 12:39 Parabens Results - Vital Signs Recent Vital Signs: Last Vital Signs Temp 97.8 F 08/16/18 04:36 Pulse 62 08/16/18 07:25 Resp 18 08/16/18 07:25 BP 142/61 08/16/18 07:25 Pulse Ox 95 08/16/18 07:25 - Labs Result Diagrams: 08/16/18 05:04 08/16/18 06:06 Labs: Laboratory Results - last 24 hr 08/16/18 08/16/18 08/16/18 05:04 06:06 06:06 WBC 9.8 RBC 4.32 Hgb 13.2 L Hct 40.0 L MCV 92.6 MCH 30.6 MCHC 33.0 RDW 13.3 Plt Count 265 MPV 10.0 Neut % (Auto) 72.2 H Lymph % (Auto) 16.9 L [place] % (Auto) 7.8 H Eos % (Auto) 2.9 Baso % (Auto) 0.2 Lymph # (Auto) 1.7 [place] # (Auto) 0.8 H Eos # (Auto) 0.3 Baso # (Auto) 0.02 Absolute Neuts (auto) 7.08 H PT 39.2 H INR 3.47 APTT 45.0 H Sodium 137 Potassium 3.6 Chloride 100 Carbon Dioxide 30 Anion Gap 11 BUN 8 Creatinine 0.6 L Est GFR ( Amer) > 60 Est GFR (Non-Af Amer) > 60 Random Glucose 121 H Calcium 9.5 Total Bilirubin 0.5 AST 37 ALT 27 Alkaline Phosphatase 67 Troponin I 0.02 D Total Protein 7.5 Albumin 3.8 Globulin 3.8 Albumin/Globulin Ratio 1.0 L Triglycerides 121 Cholesterol 89 L LDL Cholesterol Direct 53 HDL Cholesterol 20 L Blood Type Antibody Screen BBK History Checked 08/16/18 06:06 WBC RBC Hgb Hct MCV MCH MCHC RDW Plt Count MPV Neut % (Auto) Lymph % (Auto) [place] % (Auto) Eos % (Auto) Baso % (Auto) Lymph # (Auto) [place] # (Auto) Eos # (Auto) Baso # (Auto) Absolute Neuts (auto) PT INR APTT Sodium Potassium Chloride Carbon Dioxide Anion Gap BUN Creatinine Est GFR ( Amer) Est GFR (Non-Af Amer) Random Glucose Calcium Total Bilirubin AST ALT Alkaline Phosphatase Troponin I Total Protein Albumin Globulin Albumin/Globulin Ratio Triglycerides Cholesterol LDL Cholesterol Direct HDL Cholesterol Blood Type O POSITIVE Antibody Screen Negative BBK History Checked Patient has bt Assessment & Plan - Assessment and Plan (Free Text) Assessment: 1. Sepsis likely 2/2 HCAP r/p meningoencephalitis 2. Delirium 3. headaches 4. nausea vomiting 5. CAD with CABG and stent placement 6. Hypertension 7. BPH 8. History of TIA 9. Crohn's disease Cont rehab in the TCU. Cont vancomycin, meropenem, doxy, Ampicilin and acyclovir as per ID. Follow-up neurology recommendations- conservative management as patients daughter is refusing LP due to prior spinal sx. ID also recommended a spinal lumbar puncture tap however the patient's daughter refused. Patient with a history of TIAs therefore we will continue Plavix. History of valve replacement and therefore on Coumadin, INR therapeutic. Monitor INR daily. We will continue with Lipitor for his hyperlipidemia, continue with Coreg for his hypertension, continue with mesalamine for his Crohn's disease. Septic workup thus far negative. GI/DVT ppx. We will continue to monitor for any changes. Case and plan was reviewed and discussed with Dr. Marie <Reji Marie - Last Filed: 08/16/18 16:38> Results - Vital Signs Recent Vital Signs: Last Vital Signs Temp 97.8 F 08/16/18 04:36 Pulse 62 08/16/18 14:47 Resp 18 08/16/18 14:47 BP 142/61 02/21/19 07:25 Pulse Ox 95 08/16/18 07:25 - Labs Result Diagrams: 08/16/18 05:04 08/16/18 06:06 Labs: Laboratory Results - last 24 hr 08/16/18 08/16/18 08/16/18 05:04 05:04 06:06 WBC 9.8 RBC 4.32 Hgb 13.2 L Hct 40.0 L MCV 92.6 MCH 30.6 MCHC 33.0 RDW 13.3 Plt Count 265 MPV 10.0 Neut % (Auto) 72.2 H Lymph % (Auto) 16.9 L [place] % (Auto) 7.8 H Eos % (Auto) 2.9 Baso % (Auto) 0.2 Lymph # (Auto) 1.7 [place] # (Auto) 0.8 H Eos # (Auto) 0.3 Baso # (Auto) 0.02 Absolute Neuts (auto) 7.08 H PT 39.2 H INR 3.47 APTT 45.0 H Sodium Potassium Chloride Carbon Dioxide Anion Gap BUN Creatinine Est GFR ( Amer) Est GFR (Non-Af Amer) Random Glucose Hemoglobin A1c 5.9 Calcium Total Bilirubin AST ALT Alkaline Phosphatase Troponin I Total Protein Albumin Globulin Albumin/Globulin Ratio Triglycerides Cholesterol LDL Cholesterol Direct HDL Cholesterol Blood Type Antibody Screen BBK History Checked 08/16/18 08/16/18 06:06 06:06 WBC RBC Hgb Hct MCV MCH MCHC RDW Plt Count MPV Neut % (Auto) Lymph % (Auto) [place] % (Auto) Eos % (Auto) Baso % (Auto) Lymph # (Auto) [place] # (Auto) Eos # (Auto) Baso # (Auto) Absolute Neuts (auto) PT INR APTT Sodium 137 Potassium 3.6 Chloride 100 Carbon Dioxide 30 Anion Gap 11 BUN 8 Creatinine 0.6 L Est GFR ( Amer) > 60 Est GFR (Non-Af Amer) > 60 Random Glucose 121 H Hemoglobin A1c Calcium 9.5 Total Bilirubin 0.5 AST 37 ALT 27 Alkaline Phosphatase 67 Troponin I 0.02 D Total Protein 7.5 Albumin 3.8 Globulin 3.8 Albumin/Globulin Ratio 1.0 L Triglycerides 121 Cholesterol 89 L LDL Cholesterol Direct 53 HDL Cholesterol 20 L Blood Type O POSITIVE Antibody Screen Negative BBK History Checked Patient has bt Assessment & Plan - Assessment and Plan (Free Text) Assessment: Patient was seen and examined by me. I have reviewed the note of the medical illustrator and have gone over the plan of care. I agree with the note. I have reviewed the medications and the last labs.
--- NOTE | 2018-08-16 08:41 | CP.PCM.DIS ---
Provider - Provider Date of Admission: 08/16/18 05:09 Attending physician: Reji Marie MD Primary care physician: Reji Marie MD Consults: 08/16/18 04:39 Stroke Team Consult Stat Comment: Consulting Provider: Neurohospitalist Consulting Physician: NEUROHOSP Neurohospitalist for Consult: Jean [place] Claire Neurohospitalist for Consult: Cierra Lopez Reason for Consult: CVA 08/16/18 08:23 TCU [Evaluation for TRCU] Routine Comment: Physician Instructions: Reason For Exam: weakness 08/16/18 08:28 Infectious Disease Consult Routine Comment: Consulting Provider: Rohan Gautam Consulting Physician: Rohan Gautam Reason for Consult: possible meningoencephalitis Time Spent in preparation of Discharge (in minutes): 45 Hospital Course - Lab Results Lab Results: Most Recent Lab Values WBC 9.8 10^3/uL (4.5-11.0) 08/16/18 05:04 RBC 4.32 10^6/uL (3.5-6.1) 08/16/18 05:04 Hgb 13.2 g/dL (14.0-18.0) L 08/16/18 05:04 Hct 40.0 % (42.0-52.0) L 08/16/18 05:04 MCV 92.6 fl (80.0-105.0) 08/16/18 05:04 MCH 30.6 pg (25.0-35.0) 08/16/18 05:04 MCHC 33.0 g/dl (31.0-37.0) 08/16/18 05:04 RDW 13.3 % (11.5-14.5) 08/16/18 05:04 Plt Count 265 10^3/uL (120.0-450.0) 08/16/18 05:04 MPV 10.0 fl (7.0-11.0) 08/16/18 05:04 Neut % (Auto) 72.2 % (50.0-68.0) H 08/16/18 05:04 Lymph % (Auto) 16.9 % (22.0-35.0) L 08/16/18 05:04 [place] % (Auto) 7.8 % (1.0-6.0) H 08/16/18 05:04 Eos % (Auto) 2.9 % (1.5-5.0) 08/16/18 05:04 Baso % (Auto) 0.2 % (0.0-3.0) 08/16/18 05:04 Lymph # (Auto) 1.7 (1.2-3.4) 08/16/18 05:04 [place] # (Auto) 0.8 (0.1-0.6) H 08/16/18 05:04 Eos # (Auto) 0.3 (0.0-0.7) 08/16/18 05:04 Baso # (Auto) 0.02 K/mm3 (0.0-2.0) 08/16/18 05:04 Absolute Neuts (auto) 7.08 (1.4-6.5) H 08/16/18 05:04 PT 39.2 SECONDS (9.4-12.5) H 08/16/18 06:06 INR 3.47 08/16/18 06:06 APTT 45.0 Seconds (26.9-38.3) H 08/16/18 06:06 Sodium 137 mmol/L (132-148) 08/16/18 06:06 Potassium 3.6 mmol/L (3.6-5.0) 08/16/18 06:06 Chloride 100 mmol/L (98-107) 08/16/18 06:06 Carbon Dioxide 30 mmol/L (21-33) 08/16/18 06:06 Anion Gap 11 (10-20) 08/16/18 06:06 BUN 8 mg/dL (7-21) 08/16/18 06:06 Creatinine 0.6 mg/dl (0.8-1.5) L 08/16/18 06:06 Est GFR ( Amer) > 60 08/16/18 06:06 Est GFR (Non-Af Amer) > 60 08/16/18 06:06 Random Glucose 121 mg/dL (70-110) H 08/16/18 06:06 Calcium 9.5 mg/dL (8.4-10.5) 08/16/18 06:06 Total Bilirubin 0.5 mg/dL (0.2-1.3) 08/16/18 06:06 AST 37 U/L (17-59) 08/16/18 06:06 ALT 27 U/L (7-56) 08/16/18 06:06 Alkaline Phosphatase 67 U/L (38-126) 08/16/18 06:06 Troponin I 0.02 ng/mL D 08/16/18 06:06 Total Protein 7.5 g/dL (5.8-8.3) 08/16/18 06:06 Albumin 3.8 g/dL (3.0-4.8) 08/16/18 06:06 Globulin 3.8 gm/dL 08/16/18 06:06 Albumin/Globulin Ratio 1.0 (1.1-1.8) L 08/16/18 06:06 Triglycerides 121 mg/dL (35-160) 08/16/18 06:06 Cholesterol 89 mg/dL (130-200) L 08/16/18 06:06 LDL Cholesterol Direct 53 mg/dL (0-129) 08/16/18 06:06 HDL Cholesterol 20 mg/dL (29-60) L 08/16/18 06:06 Blood Type O POSITIVE 08/16/18 06:06 Antibody Screen Negative 08/16/18 06:06 BBK History Checked Patient has bt 08/16/18 06:06 - Hospital Course Hospital Course: 88 year old male, whose past medical history includes TIA, BPH, CABG s/p [place], CAD with coronary stents, hypertension, ascending thoracic aneurysm repair, AV valve replacement, Crohn's disease, and dyslipidemia, presents with headache and nausea. Patient was found to have Sirs criteria in the emergency room. UA and chest x-ray were performed and were negative. CT of the head was performed that was negative. Patient did have a white count of 16.2 and was started on cefepime. Patient was admitted to telemetry for continued monitoring. Patient became more delirious, and was febrile for the following 2 days. Infectious disease and neurology were consulted. Infectious disease placed the patient on Vanco, karan, ampicillin, and doxycycline. Patient was also started on Tamiflu for possible viral illness with influenza. They also recommended a lumbar puncture. Neurology evaluated the patient and also recommended a lumbar puncture. Patient's daughter refused any procedure including lumbar puncture as the patient had prior history of spinal surgery. Patient's symptoms including his delirium, and his fevers both have improved. Patient is clinically feeling better and as per the daughter is back to his baseline. Physical therapy evaluated the patient and recommended TCU. Patient was discharged to TCU. Overnight a OSTEOPATHIC PHYSICIAN was called followed for a code stroke. Patient was reportedly not responding initially with some ext weakness. Patient was taken to the ED. At this time I was not present and was not evaluated by me in the TCU. Patient was transferred to the ED for further management and work up. CTH was ordered, and neurology consult and recs. Discharge Plan - Follow Up Plan Condition: GUARDED Disposition: HOME/ ROUTINE Additional Instructions: D/c to ED Referrals: Reji Marie MD [Primary Care Provider] -
--- NOTE | 2018-08-16 09:50 | RAD ---
Date of service: 08/16/2018 HISTORY: Code Stroke COMPARISON: 08/07/2018 FINDINGS: LUNGS: No active pulmonary disease. PLEURA: No significant pleural effusion identified, no pneumothorax apparent. CARDIOVASCULAR: There is atherosclerotic calcification of the thoracic aorta. Normal heart size. Status post CABG. No pulmonary vascular congestion. OSSEOUS STRUCTURES: No significant abnormalities. VISUALIZED UPPER ABDOMEN: Normal. OTHER FINDINGS: None. IMPRESSION: No active disease.
[2018-08-16] MEDS ORDERED: Non Formulary Medication (Doxycycline Hyclate [Vibramycin] 100 MG) IVPB SCH (10:00)
[2018-08-16] MEDS: Mesalamine ER Cap 500 MG PO SCH ×3 (10:22→18:43)
[2018-08-16] MEDS: Meropenem IV 1 gm in NS 1 GM/50 ML BAG IVPB SCH ×3 (10:47→22:33)
[2018-08-16] MEDS ORDERED: AMPicillin 2 GM in Sodium Chloride 0.9% 100 ML IVPB SCH (12:00)
--- NOTE | 2018-08-16 13:39 | CP.PCM.HP ---
<Gerardo Arce - Last Filed: 08/16/18 13:43> History of Present Illness - History of Present Illness History of Present Illness: H&P for Dr Marie: 88 year old male, whose past medical history includes TIA, BPH, CABG s/p [place], CAD with coronary stents, hypertension, ascending thoracic aneurysm repair, AV valve replacement, Crohn's disease, and dyslipidemia, presents from TCU following [employer] and code stroke. 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 Patient was sent to the TCU for rehab. Last night the patient was found to be not responding and with some extremity weakness where a rapid response and code stroke was called. Patient was sent to the ED for further management. In the ED patient symptoms fully resolved. CT of the head was ordered and was negative. At this time patient has no complaints. Denies any pain. 12 point ROS performed and negative other than stated above PMH: As above PSH: CABG Allergies: Pneumococcal vaccine, anesthetics including alejandra type parabens SH: Former smoker over 30 years ago, denies any drinking or drugs FH: Denies Present on Admission - Present on Admission Any Indicators Present on Admission: No Past Patient History - Infectious Disease Hx of Infectious Diseases: None - Past Social History Smoking Status: Never Smoked - CARDIAC Hx Cardiac Disorders: Yes (CABG s/p [place], CAD with coronary stents,) Hx Congestive Heart Failure: Yes Hx Hypertension: Yes - PULMONARY Hx Respiratory Disorders: Yes Hx Pneumonia: Yes - NEUROLOGICAL HX Cerebrovascular Accident: Yes - HEENT Hx HEENT Problems: Yes Hx Cataracts: Yes - RENAL Hx Chronic Kidney Disease: No - ENDOCRINE/METABOLIC Hx Diabetes Mellitus Type 2: Yes - HEMATOLOGICAL/ONCOLOGICAL Hx Blood Disorders: No - INTEGUMENTARY Hx Dermatological Problems: No - MUSCULOSKELETAL/RHEUMATOLOGICAL Hx Falls: Yes - GASTROINTESTINAL Hx Gastrointestinal Disorders: Yes (DIVERTICULOSIS,CROHNS) - GENITOURINARY/GYNECOLOGICAL Hx Genitourinary Disorders: Yes Hx Reproductive Disorders: Yes (ENLARGED PROSTATE BPH) - PSYCHIATRIC Hx Emotional Abuse: No Hx Physical Abuse: No Hx Substance Use: No - SURGICAL HISTORY Hx Cardiac Catheterization: Yes Hx Coronary Stent: Yes Hx Open Heart Surgery: Yes Other/Comment: cataract surgery - ANESTHESIA Hx Anesthesia Reactions: No Hx Malignant Hyperthermia: No Meds Allergies/Adverse Reactions: Allergies Allergy/AdvReac Type Severity Reaction Status Date / Time pneumococcal vaccine Allergy Severe RASH Verified 08/16/18 12:39 Anesthetics - Alejandra Type- AdvReac ANAPHYLAXIS Verified 08/16/18 12:39 Parabens Physical Exam - Head Exam Head Exam: ATRAUMATIC, NORMOCEPHALIC - Eye Exam Eye Exam: EOMI - ENT Exam ENT Exam: Mucous Membranes Moist - Respiratory Exam Respiratory Exam: Clear to Auscultation Bilateral. absent: Rales, Rhonchi, Wheezes - Cardiovascular Exam Cardiovascular Exam: REGULAR RHYTHM, +S1, +S2 - GI/Abdominal Exam GI & Abdominal Exam: Normal Bowel Sounds, Soft. absent: Tenderness - Extremities Exam Extremities exam: Negative for: calf tenderness, pedal edema - Neurological Exam Neurological exam: Alert, CN II-XII Intact - Psychiatric Exam Psychiatric exam: Normal Mood - Skin Skin Exam: Dry, Intact, Warm Results - Vital Signs Recent Vital Signs: Last Vital Signs Temp 97.8 F 08/16/18 04:36 Pulse 62 08/16/18 07:25 Resp 18 08/16/18 07:25 BP 142/61 08/16/18 07:25 Pulse Ox 95 08/16/18 07:25 - Labs Result Diagrams: 08/16/18 05:04 08/16/18 06:06 Labs: Laboratory Results - last 24 hr 08/16/18 08/16/18 08/16/18 05:04 06:06 06:06 WBC 9.8 RBC 4.32 Hgb 13.2 L Hct 40.0 L MCV 92.6 MCH 30.6 MCHC 33.0 RDW 13.3 Plt Count 265 MPV 10.0 Neut % (Auto) 72.2 H Lymph % (Auto) 16.9 L Piatt % (Auto) 7.8 H Eos % (Auto) 2.9 Baso % (Auto) 0.2 Lymph # (Auto) 1.7 Piatt # (Auto) 0.8 H Eos # (Auto) 0.3 Baso # (Auto) 0.02 Absolute Neuts (auto) 7.08 H PT 39.2 H INR 3.47 APTT 45.0 H Sodium 137 Potassium 3.6 Chloride 100 Carbon Dioxide 30 Anion Gap 11 BUN 8 Creatinine 0.6 L Est GFR ( Amer) > 60 Est GFR (Non-Af Amer) > 60 Random Glucose 121 H Calcium 9.5 Total Bilirubin 0.5 AST 37 ALT 27 Alkaline Phosphatase 67 Troponin I 0.02 D Total Protein 7.5 Albumin 3.8 Globulin 3.8 Albumin/Globulin Ratio 1.0 L Triglycerides 121 Cholesterol 89 L LDL Cholesterol Direct 53 HDL Cholesterol 20 L Blood Type Antibody Screen BBK History Checked 08/16/18 06:06 WBC RBC Hgb Hct MCV MCH MCHC RDW Plt Count MPV Neut % (Auto) Lymph % (Auto) Piatt % (Auto) Eos % (Auto) Baso % (Auto) Lymph # (Auto) [place] # (Auto) Eos # (Auto) Baso # (Auto) Absolute Neuts (auto) PT INR APTT Sodium Potassium Chloride Carbon Dioxide Anion Gap BUN Creatinine Est GFR ( Amer) Est GFR (Non-Af Amer) Random Glucose Calcium Total Bilirubin AST ALT Alkaline Phosphatase Troponin I Total Protein Albumin Globulin Albumin/Globulin Ratio Triglycerides Cholesterol LDL Cholesterol Direct HDL Cholesterol Blood Type O POSITIVE Antibody Screen Negative BBK History Checked Patient has bt Assessment & Plan - Assessment and Plan (Free Text) Assessment: 1. AMS 2/2 TIA vs Delirium 2. Sepsis likely 2/2 HCAP r/o meningoencephalitis 3. headaches 4. nausea vomiting 5. CAD with CABG and stent placement 6. Hypertension 7. BPH 8. History of TIA 9. Crohn's disease CT of the head was performed and was negative. Follow-up CTA of the head. MRI was ordered however given that the patient may require sedation as he is claustrophobic the daughter does not wish to have it done. Follow-up neurology recommendations. Cont vancomycin, meropenem, doxy, Ampicilin and acyclovir as per ID. Follow-up neurology recommendations- conservative management as patients daughter is refusing LP due to prior spinal sx. ID also recommended a spinal joseph mbar puncture tap however the patient's daughter refused. Patient with a history of TIAs therefore we will continue Plavix. History of valve replacement and therefore on Coumadin, INR therapeutic. Monitor INR daily. We will continue with Lipitor for his hyperlipidemia, continue with Coreg for his hypertension, continue with mesalamine for his Crohn's disease. Urology was consulted for his urinary frequency, BPH. Septic workup thus far negative. GI/DVT ppx. We will continue to monitor for any changes. Case and plan was reviewed and discussed with Dr. Marie <Reji Marie S - Last Filed: 08/16/18 16:36> Results - Vital Signs Recent Vital Signs: Last Vital Signs Temp 97.8 F 08/16/18 04:36 Pulse 62 08/16/18 14:47 Resp 18 08/16/18 14:47 BP 142/61 08/16/18 07:25 Pulse Ox 95 08/16/18 07:25 - Labs Result Diagrams: 08/16/18 05:04 08/16/18 06:06 Labs: Laboratory Results - last 24 hr 08/16/18 08/16/18 08/16/18 05:04 05:04 06:06 WBC 9.8 RBC 4.32 Hgb 13.2 L Hct 40.0 L MCV 92.6 MCH 30.6 MCHC 33.0 RDW 13.3 Plt Count 265 MPV 10.0 Neut % (Auto) 72.2 H Lymph % (Auto) 16.9 L Piatt % (Auto) 7.8 H Eos % (Auto) 2.9 Baso % (Auto) 0.2 Lymph # (Auto) 1.7 Piatt # (Auto) 0.8 H Eos # (Auto) 0.3 Baso # (Auto) 0.02 Absolute Neuts (auto) 7.08 H PT 39.2 H INR 3.47 APTT 45.0 H Sodium Potassium Chloride Carbon Dioxide Anion Gap BUN Creatinine Est GFR ( Amer) Est GFR (Non-Af Amer) Random Glucose Hemoglobin A1c 5.9 Calcium Total Bilirubin AST ALT Alkaline Phosphatase Troponin I Total Protein Albumin Globulin Albumin/Globulin Ratio Triglycerides Cholesterol LDL Cholesterol Direct HDL Cholesterol Blood Type Antibody Screen BBK History Checked 08/16/18 08/16/18 06:06 06:06 WBC RBC Hgb Hct MCV MCH MCHC RDW Plt Count MPV Neut % (Auto) Lymph % (Auto) Piatt % (Auto) Eos % (Auto) Baso % (Auto) Lymph # (Auto) Piatt # (Auto) Eos # (Auto) Baso # (Auto) Absolute Neuts (auto) PT INR APTT Sodium 137 Potassium 3.6 Chloride 100 Carbon Dioxide 30 Anion Gap 11 BUN 8 Creatinine 0.6 L Est GFR ( Amer) > 60 Est GFR (Non-Af Amer) > 60 Random Glucose 121 H Hemoglobin A1c Calcium 9.5 Total Bilirubin 0.5 AST 37 ALT 27 Alkaline Phosphatase 67 Troponin I 0.02 D Total Protein 7.5 Albumin 3.8 Globulin 3.8 Albumin/Globulin Ratio 1.0 L Triglycerides 121 Cholesterol 89 L LDL Cholesterol Direct 53 HDL Cholesterol 20 L Blood Type O POSITIVE Antibody Screen Negative BBK History Checked Patient has bt Assessment & Plan - Assessment and Plan (Free Text) Assessment: Patient was seen and examined by me. I have reviewed the note of the medical affairs leader and have gone over the plan of care. I agree with the note. I have reviewed the medications and the last labs. Pt with Delirium that has improved. He was sent to the ER due to possible CVA with L arm and leg weakness. CT of the head was negative. He is able to move all extremities. Pt states that father will not be able to tolerate MRI due to fear of closed spaces. Will not risk giving sedation for MRI. INR is supratherapeutic. Pt is on Lipitor for dyslipi demia. On Coreg for HTN. On Mesalamine for Crohn's disease
[2018-08-16] MEDS ORDERED: Influenza Vaccine 60 mcg/0.5 mL SYR (4YR UP) IM ONE (15:22)
[2018-08-16] MEDS: AMPicillin 2 GM in Sodium Chloride 0.9% 100 ML IVPB SCH ×3 (16:11→23:42)
--- NOTE | 2018-08-16 17:09 | CP.PCM.CON ---
History of Present Illness - History of Present Illness History of Present Illness: 88 year old male with PMH of CAD S/P CABG S/P PCI, HTN, history of TIA, BPH, ascending aortic aneurysm S/P repair, S/P aortic valve replacement, Crohn's disease, dyslipidemia [place] [facility] [place], somnolence and fevers. He has been on treatment for pneumonia and possible meningoencephalitis and has been improving clinically. LP was not done since family refused due to his back surgeries. He was then transferred to [facility] but apparently developed decreased sensorium and as per chart some weakness on the left side of the body and was sent to the ED. He was noted to have full range of motion of extremities in the ED, but admitted for further observation and CT head was done. He is currently comfortable in bed but sleepy, but arousable, no fevers noted, no diarrhea, no vomiting, no convulsions as per the daughter. Infectious Diseases consult is requested to further evaluate and manage. Review of Systems - Review of Systems All systems: reviewed and no additional remarkable complaints except (as per HPI) Past Patient History - Infectious Disease Hx of Infectious Diseases: None - Past Social History Smoking Status: Never Smoked - CARDIAC Hx Cardiac Disorders: Yes (CABG s/p [place], CAD with coronary stents,) Hx Congestive Heart Failure: Yes Hx Hypertension: Yes - PULMONARY Hx Respiratory Disorders: Yes Hx Pneumonia: Yes - NEUROLOGICAL HX Cerebrovascular Accident: Yes - HEENT Hx HEENT Problems: Yes Hx Cataracts: Yes - RENAL Hx Chronic Kidney Disease: No - ENDOCRINE/METABOLIC Hx Diabetes Mellitus Type 2: Yes - HEMATOLOGICAL/ONCOLOGICAL Hx Blood Disorders: No - INTEGUMENTARY Hx Dermatological Problems: No - MUSCULOSKELETAL/RHEUMATOLOGICAL Hx Falls: Yes - GASTROINTESTINAL Hx Gastrointestinal Disorders: Yes (DIVERTICULOSIS,CROHNS) - GENITOURINARY/GYNECOLOGICAL Hx Genitourinary Disorders: Yes Hx Reproductive Disorders: Yes (ENLARGED PROSTATE BPH) - PSYCHIATRIC Hx Emotional Abuse: No Hx Physical Abuse: No Hx Substance Use: No - SURGICAL HISTORY Hx Cardiac Catheterization: Yes Hx Coronary Stent: Yes Hx Open Heart Surgery: Yes Other/Comment: cataract surgery - ANESTHESIA Hx Anesthesia Reactions: No Hx Malignant Hyperthermia: No Meds Allergies/Adverse Reactions: Allergies Allergy/AdvReac Type Severity Reaction Status Date / Time pneumococcal vaccine Allergy Severe RASH Verified 08/16/18 12:39 Anesthetics - Alejandra Type- AdvReac ANAPHYLAXIS Verified 08/16/18 12:39 Parabens - Medications Medications: Current Medications Acetaminophen (Tylenol 325mg Tab) 650 mg PO Q6H PRN PRN Reason: Fever >100.4 F Atorvastatin Calcium (Lipitor) 20 mg PO DIN [facility] Carvedilol (Coreg) 6.25 mg PO BID [facility] Clopidogrel Bisulfate (Plavix) 75 mg PO DAILY [facility] Finasteride (Proscar) 5 mg PO DAILY [facility] Sodium Chloride (Sodium Chloride 0.9%) 1,000 mls @ 100 mls/hr IV .Q10H SUSANNA Last Admin: 08/16/18 05:00 Dose: 100 mls/hr Meropenem/Sodium Chloride (Merrem Iv 500 Mg/Ns 50 Ml) 500 mg in 50 mls @ 100 mls/hr IVPB Q8 [facility]; Protocol Stop: 08/16/18 14:29 Vancomycin HCl (Vancomycin 1gm) 1 gm in 250 mls @ 167 mls/hr IVPB Q12H [facility]; Protocol Acyclovir 600 mg/ Sodium (Chloride) 100 mls @ 100 mls/hr IV Q8H [facility] Ampicillin 2 gm/ Sodium (Chloride) 100 mls @ 200 mls/hr IVPB Q6 SUSANNA Doxycycline Hyclate 100 mg/ (Sodium Chloride) 100 mls @ 100 mls/hr IVPB Q12 [facility] Mesalamine (Pentasa) 1,500 mg PO BID SUSANNA Pantoprazole Sodium (Protonix Ec Tab) 40 mg PO 0630 SUSANNA Warfarin Sodium (Coumadin) 4 mg PO 1800 [facility] Physical Exam - Constitutional Appears: Chronically Ill - Head Exam Head Exam: NORMAL INSPECTION - Neck Exam Neck exam: Negative for: Meningismus - Respiratory Exam Respiratory Exam: Decreased Breath Sounds - Cardiovascular Exam Cardiovascular Exam: +S1, +S2 - GI/Abdominal Exam GI & Abdominal Exam: Soft. absent: Tenderness Results - Vital Signs Recent Vital Signs: Last Vital Signs Temp 97.8 F 08/16/18 04:36 Pulse 62 08/16/18 07:25 Resp 18 08/16/18 07:25 BP 142/61 08/16/18 07:25 Pulse Ox 95 08/16/18 07:25 - Labs Result Diagrams: 08/16/18 05:04 08/16/18 06:06 Labs: Laboratory Results - last 24 hr 08/16/18 08/16/18 08/16/18 05:04 06:06 06:06 WBC 9.8 RBC 4.32 Hgb 13.2 L Hct 40.0 L MCV 92.6 MCH 30.6 MCHC 33.0 RDW 13.3 Plt Count 265 MPV 10.0 Neut % (Auto) 72.2 H Lymph % (Auto) 16.9 L [place] % (Auto) 7.8 H Eos % (Auto) 2.9 Baso % (Auto) 0.2 Lymph # (Auto) 1.7 [place] # (Auto) 0.8 H Eos # (Auto) 0.3 Baso # (Auto) 0.02 Absolute Neuts (auto) 7.08 H PT 39.2 H INR 3.47 APTT 45.0 H Sodium 137 Potassium 3.6 Chloride 100 Carbon Dioxide 30 Anion Gap 11 BUN 8 Creatinine 0.6 L Est GFR ( Amer) > 60 Est GFR (Non-Af Amer) > 60 Random Glucose 121 H Calcium 9.5 Total Bilirubin 0.5 AST 37 ALT 27 Alkaline Phosphatase 67 Troponin I 0.02 D Total Protein 7.5 Albumin 3.8 Globulin 3.8 Albumin/Globulin Ratio 1.0 L Triglycerides 121 Cholesterol 89 L LDL Cholesterol Direct 53 HDL Cholesterol 20 L Blood Type Antibody Screen BBK History Checked 08/16/18 06:06 WBC RBC Hgb Hct MCV MCH MCHC RDW Plt Count MPV Neut % (Auto) Lymph % (Auto) [place] % (Auto) Eos % (Auto) Baso % (Auto) Lymph # (Auto) [place] # (Auto) Eos # (Auto) Baso # (Auto) Absolute Neuts (auto) PT INR APTT Sodium Potassium Chloride Carbon Dioxide Anion Gap BUN Creatinine Est GFR ( Amer) Est GFR (Non-Af Amer) Random Glucose Calcium Total Bilirubin AST ALT Alkaline Phosphatase Troponin I Total Protein Albumin Globulin Albumin/Globulin Ratio Triglycerides Cholesterol LDL Cholesterol Direct HDL Cholesterol Blood Type O POSITIVE Antibody Screen Negative BBK History Checked Patient has bt Assessment & Plan - Assessment and Plan (Free Text) Plan: Assessment Systemic inflammatory response syndrome, with fevers, consider sepsis due to left sided HCAP, need to rule out meningoencephalitis, slowly improving CAD S/P CABG S/P PCI HTN history of TIA BPH ascending aortic aneurysm S/P repair S/P aortic valve replacement Crohn's disease dyslipidemia history of spinal laminectomy Plan continue Merrem day 9 and Acyclovir day 8 and added Ampicillin; target 10-14 days of antibiotics and antivirals - we have discontinued Doxycycline as well (completed 7 days and urine Legionell Ag is negative) reviewed CT C/A/P showing left sided nodular infiltrates would recommend lumbar puncture for CSF analysis - discussed with Dr. Marie previously - daughter refused due history of spinal surgery will continue to monitor clinically serum Crypt Ag is negative prognosis is guarded follow up further recommendations of Neurology
--- NOTE | 2018-08-16 17:58 | CON ---
DATE: 08/16/2018 NEUROLOGY CONSULTATION CHIEF COMPLAINT: Change in mental status. HISTORY OF PRESENT ILLNESS: This is an 88-year-old man with history of TIA, BPH, CABG, status post HI, history of coronary artery disease with stents, hypertension, ascending thoracic aneurysm repair, AV valve, the patient is on Coumadin and Plavix, Crohn's disease, dyslipidemia, who came from TCU after he found in rapid response. The patient is in TCU following his hospital admission which was treated for sepsis, delirium, and possible viral encephalitis. Last night, the patient was found to be less responsive, but was moving all extremities. CTA of the head showed no acute intracranial abnormalities. CT angio of the head showed no abnormalities as well. Currently, the patient is awake, following simple commands, moving all extremities, though we will order an MRI of the brain to assess for any lacunar type of infarcts which can cause change in mental status, otherwise if negative, we can send back to TCU for rehabilitation and delirium precautions. PAST MEDICAL HISTORY: As above. PAST SURGICAL HISTORY: CABG. ALLERGIES: PNEUMOCOCCAL VACCINE, ANESTHETICS, . SOCIAL HISTORY: Former smoker over 30 years. Denies any illicit drug use, smoking, or EtOH abuse. FAMILY HISTORY: Noncontributory. REVIEW OF SYSTEMS: Fourteen-point review of systems is negative except as per the HPI. LABORATORY DATA: Sodium is 137, potassium 3.6, chloride 100, carbon dioxide 30, BUN of 8, creatinine 0.6, random glucose 121. PHYSICAL EXAMINATION GENERAL: The patient is seen up in bed. No acute distress. HEENT: Atraumatic, normocephalic. PERRLA. Extraocular muscles intact. NECK: Supple. No JVD. No adenopathy noted. LUNGS: Clear to auscultation. No adventitious sounds. HEART: S1 and S2. Normal rate and rhythm. Systolic murmur in the aortic area. No rubs or gallops. ABDOMEN: Soft, nontender, nondistended. Bowel sounds present. EXTREMITIES: No clubbing, no cyanosis. Peripheral pulses 2+ felt bilaterally. NEUROLOGIC: The patient is alert, oriented to person, place, month and year. Speech is fluent without any errors. Cranial nerves II through XII are intact. Motor: Moves all extremities equally. No pronator drift seen. Sensory: Light touch, pinprick, proprioception, and vibration are intact. DTRs are 2+ throughout and 1 in both knees and ankles. Recall after 5 minutes are 0/2. Poor attention span. Slow thought process. IMPRESSION: Change in altered mental status, could be secondary to underlying acute delirium, superimposed underlying chronic medical condition versus a questionable transient ischemic attack. RECOMMENDATIONS: At this time, we recommend: 1. MRI of the brain to assess for any lacunar type infarct causing symptoms, otherwise, continue with Plavix and Coumadin for stroke prevention in addition to Lipitor for his dyslipidemia. 2. Delirium precautions. 3. Thiamine 100 mg p.o. daily and PT/OT. Thank you for this consult. Rodney Gentile MD
--- NOTE | 2018-08-16 21:43 | CARD ---
APPROVED REPORT Date of service: 08/16/2018 EKG Measurement Heart [id number] <Conclusion> Normal sinus rhythm Low voltage QRS Cannot rule out Anteroseptal infarct, age undetermined Abnormal ECG
[2018-08-17] MEDS: Sodium Chloride 0.9% 1,000 ML IV SCH (01:38)
[2018-08-17] MEDS: AMPicillin 2 GM in Sodium Chloride 0.9% 100 ML IVPB SCH ×3 (06:28→17:05)
[2018-08-17] MEDS ORDERED: Pantoprazole 40 mg EC Tab PO SCH (06:30)
[2018-08-17] MEDS: Meropenem IV 1 gm in NS 1 GM/50 ML BAG IVPB SCH ×2 (06:33→14:05)
[2018-08-17 07:20] VITALS: O2SAT 97
[2018-08-17 07:25] LABS: BASO # 0.03 K/mm3 (0.0-2.0); BASO % 0.3 % (0.0-3.0); EOS # 0.2 (0.0-0.7); HEMOGLOBIN 13.6 g/dL (14.0-18.0); LYMPH # 1.9 (1.2-3.4); LYMPH % 20.3 % (22.0-35.0); MEAN CELL VOLUME 92.2 fl (80.0-105.0); MEAN CORPUSCULAR HEMOGLOBIN 30.3 pg (25.0-35.0); MEAN CORPUSCULAR HGB CONC 32.9 g/dl (31.0-37.0); MEAN PLATELET VOLUME 9.5 fl (7.0-11.0); MONO # 0.8 (0.1-0.6); MONO % 8.3 % (1.0-6.0); RBC 4.49 10^6/uL (3.5-6.1); RED CELL DISTRIBUTION WIDTH 13.4 % (11.5-14.5); WHITE BLOOD COUNT 9.5 10^3/uL (4.5-11.0)
[2018-08-17 08:04] LABS: INR 4.87
[2018-08-17 08:21] LABS: ALBUMIN 3.7 g/dL (3.0-4.8); ALT/SGPT 31 U/L (7-56); AST/SGOT 74 U/L (17-59); BLOOD UREA NITROGEN 8 mg/dL (7-21); CALCIUM 9.3 mg/dL (8.4-10.5); GFR NON-AFRICAN AMERICAN > 60
--- NOTE | 2018-08-17 09:41 | CON ---
DATE: 08/16/2018 UROLOGY CONSULTATION REASON FOR CONSULTATION: Voiding dysfunction and frequency. HISTORY OF PRESENT ILLNESS: Mr. Salmeron is very well known to me. He is 88 years old, he has previous incomplete bladder emptying, irritated with obstructive urinary complaints. No known malignancy otherwise. He is currently in the hospital under the Dr. Marie actually just came back from the [facility], it sounds like he came in 08/07/2018, originally with multiple complaints and now he is in with TIA it looks like. Possible CVA. Urology is consulted regarding voiding dysfunction. PAST MEDICAL AND SURGICAL HISTORY: Otherwise, no changes. The history by the way is mostly from the patient's and daughter, who are here at the bedside with him. REVIEW OF SYSTEMS: See on the chart. MEDICATIONS: See on the chart. PHYSICAL EXAMINATION: GENERAL: A well-nourished male. He is currently resting comfortably in his bed. VITAL SIGNS: Noted. ABDOMEN: Relatively soft, it is difficult to evaluate for distention. He has a normal soft diet discharge. GENITOURINARY: Remainder of the exam is otherwise unremarkable. RECTAL: Deferred for now. LABORATORY DATA: See chart. DIAGNOSES: Voiding dysfunction, frequency, irritative and obstructive complaints. ASSESSMENT AND PLAN: In summary, a pleasant 88-year-old gentleman with multiple etiologies if he has recent cerebrovascular accident, retention and this could be overflow frequency. There are multiple possibilities for now. From urology standpoint, we will do the following; 1. We will check urinalysis. 2. Urine culture. 3. Bladder ultrasound to check for residual. Further plans can follow plus or minus the use of medications we will have to discuss plus or minus workup, details, depending mostly his medical condition and further plans will follow. He is getting a workup with I guess CT scan or MRI. We will follow along from Urology standpoint at this point. We will do some noninvasive testing with UA culture and bladder scan and make further recommendations. Thank you for the Urology consultation. Migel Askew MD [facility] # [id number]
[2018-08-17] MEDS: Mesalamine ER Cap 500 MG PO SCH ×2 (10:16→17:04)
--- NOTE | 2018-08-17 11:40 | CP.PCM.PCO ---
Physician Communication Note - Physician Communication Note Physician Communication Note: hold mri brain. pt cleared for TCU.
--- NOTE | 2018-08-17 12:30 | CP.PCM.DIS ---
<Gerardo Arce - Last Filed: 08/17/18 12:30> Provider - Provider Date of Admission: 08/16/18 05:09 Attending physician: Reji Marie MD Primary care physician: Reji Marie MD Consults: 08/16/18 04:39 Stroke Team Consult Stat Comment: Consulting Provider: Neurohospitalist Consulting Physician: NEUROHOSP Neurohospitalist for Consult: Jean Pierre Claire Neurohospitalist for Consult: Cierra Lopez Reason for Consult: CVA 08/16/18 08:23 TCU [Evaluation for TRCU] Routine Comment: Physician Instructions: Reason For Exam: weakness 08/16/18 08:28 Infectious Disease Consult Routine Comment: Consulting Provider: Rohan Gautam Consulting Physician: Rohan Gautam Reason for Consult: possible meningoencephalitis 08/16/18 12:43 Neurology Consult Routine Comment: Consulting Provider: Rodney Gentile Consulting Physician: Rodney Gentile Reason for Consult: TIA, Meningoencephalitis? 08/16/18 12:44 Physician Consult Routine Comment: Consulting Provider: Pelon Askew Consulting Physician: Pelon Askew Reason for Consult: Urinary frequency; BPH 08/16/18 15:22 Nursing Referral for Wound Care Routine Comment: Physician Instructions: Reason For Exam: EVALUATION 08/16/18 15:29 Nursing Referral for Palliative Care Routine Comment: Physician Instructions: Reason For Exam: EVALUATION Social Work Referral Routine Comment: DISCHARGE PLANNING TO REHAB FOR DECONDITIONING Physician Instructions: Reason For Exam: EVALUATION Time Spent in preparation of Discharge (in minutes): 45 Hospital Course - Lab Results Lab Results: Most Recent Lab Values WBC 9.5 10^3/uL (4.5-11.0) 08/17/18 07:00 RBC 4.49 10^6/uL (3.5-6.1) 08/17/18 07:00 Hgb 13.6 g/dL (14.0-18.0) L 08/17/18 07:00 Hct 41.4 % (42.0-52.0) L 08/17/18 07:00 MCV 92.2 fl (80.0-105.0) 08/17/18 07:00 MCH 30.3 pg (25.0-35.0) 08/17/18 07:00 MCHC 32.9 g/dl (31.0-37.0) 08/17/18 07:00 RDW 13.4 % (11.5-14.5) 08/17/18 07:00 Plt Count 275 10^3/uL (120.0-450.0) 08/17/18 07:00 MPV 9.5 fl (7.0-11.0) 08/17/18 07:00 Neut % (Auto) 69.1 % (50.0-68.0) H 08/17/18 07:00 Lymph % (Auto) 20.3 % (22.0-35.0) L 08/17/18 07:00 [place] % (Auto) 8.3 % (1.0-6.0) H 08/17/18 07:00 Eos % (Auto) 2.0 % (1.5-5.0) 08/17/18 07:00 Baso % (Auto) 0.3 % (0.0-3.0) 08/17/18 07:00 Lymph # (Auto) 1.9 (1.2-3.4) 08/17/18 07:00 [place] # (Auto) 0.8 (0.1-0.6) H 08/17/18 07:00 Eos # (Auto) 0.2 (0.0-0.7) 08/17/18 07:00 Baso # (Auto) 0.03 K/mm3 (0.0-2.0) 08/17/18 07:00 Absolute Neuts (auto) 6.59 (1.4-6.5) H 08/17/18 07:00 PT 55.0 SECONDS (9.4-12.5) H 08/17/18 07:00 INR 4.87 H* 08/17/18 07:00 APTT 45.0 Seconds (26.9-38.3) H 08/16/18 06:06 Sodium 137 mmol/L (132-148) 08/17/18 07:00 Potassium 3.8 mmol/L (3.6-5.0) 08/17/18 07:00 Chloride 100 mmol/L (98-107) 08/17/18 07:00 Carbon Dioxide 29 mmol/L (21-33) 08/17/18 07:00 Anion Gap 12 (10-20) 08/17/18 07:00 BUN 8 mg/dL (7-21) 08/17/18 07:00 Creatinine 0.6 mg/dl (0.8-1.5) L 08/17/18 07:00 Est GFR ( Amer) > 60 08/17/18 07:00 Est GFR (Non-Af Amer) > 60 08/17/18 07:00 Random Glucose 111 mg/dL (70-110) H 08/17/18 07:00 Hemoglobin A1c 5.9 % (4.2-6.5) 08/16/18 05:04 Calcium 9.3 mg/dL (8.4-10.5) 08/17/18 07:00 Total Bilirubin 0.7 mg/dL (0.2-1.3) 08/17/18 07:00 AST 74 U/L (17-59) H D 08/17/18 07:00 ALT 31 U/L (7-56) 08/17/18 07:00 Alkaline Phosphatase 67 U/L (38-126) 08/17/18 07:00 Troponin I 0.02 ng/mL D 08/16/18 06:06 Total Protein 7.3 g/dL (5.8-8.3) 08/17/18 07:00 Albumin 3.7 g/dL (3.0-4.8) 08/17/18 07:00 Globulin 3.7 gm/dL 08/17/18 07:00 Albumin/Globulin Ratio 1.0 (1.1-1.8) L 08/17/18 07:00 Triglycerides 121 mg/dL (35-160) 08/16/18 06:06 Cholesterol 89 mg/dL (130-200) L 08/16/18 06:06 LDL Cholesterol Direct 53 mg/dL (0-129) 08/16/18 06:06 HDL Cholesterol 20 mg/dL (29-60) L 08/16/18 06:06 Blood Type O POSITIVE 08/16/18 06:06 Antibody Screen Negative 08/16/18 06:06 BBK History Checked Patient has bt 08/16/18 06:06 - Hospital Course Hospital Course: 88 year old male, whose past medical history includes TIA, BPH, CABG s/p [place], CAD with coronary stents, hypertension, ascending thoracic aneurysm repair, AV valve replacement, Crohn's disease, and dyslipidemia, presents initially from the TCU. Patient was just recently hospitalized for headache and found to have sepsis and treated for HCAP, and r/o meningeal encephalitis. Patient was found not responding in the TCU with some extremity weakness and [employer] followed by code stroke was called. Patient was taken to the ER at this time. CT of the head and CTA were both negative. Overnight patient is doing much better and all his symptoms have now resolved. Patient accepted to the TCU. Will resume all medications there. 1. AMS 2/2 TIA vs Delirium 2. Sepsis likely 2/2 HCAP r/o meningoencephalitis 3. headaches 4. nausea vomiting 5. CAD with CABG and stent placement 6. Hypertension 7. BPH 8. History of TIA 9. Crohn's disease Discharge Exam - Head Exam Head Exam: NORMAL INSPECTION - Eye Exam Eye Exam: EOMI, PERRL - Respiratory Exam Respiratory Exam: Clear to PA & Lateral. absent: Rales, Rhonchi, Wheezes - Cardiovascular Exam Cardiovascular Exam: REGULAR RHYTHM, +S1, +S2 - GI/Abdominal Exam GI & Abdominal Exam: Normal Bowel Sounds, Soft. absent: Distended, Tenderness - Neurological Exam Neurological exam: Alert, CN II-XII Intact, Oriented x3 - Psychiatric Exam Psychiatric exam: Normal Mood - Skin Skin Exam: Dry, Warm Discharge Plan - Follow Up Plan Condition: IMPROVED Disposition: REHAB FACILITY/REHAB UNIT Instructions: Altered Mental Status (GEN) Additional Instructions: D/c to TCU resume all inpatient medications Referrals: Reji Marie MD [Primary Care Provider] - <Reji Marie - Last Filed: 08/17/18 17:27> Provider - Provider Date of Admission: 08/16/18 05:09 Attending physician: Reji Marie MD Primary care physician: Reji Marie MD Consults: 08/16/18 04:39 Stroke Team Consult Stat Comment: Consulting Provider: Neurohospitalist Consulting Physician: NEUROHOSP Neurohospitalist for Consult: Jean Pierre Claire Neurohospitalist for Consult: Cierra Lopez Reason for Consult: CVA 08/16/18 08:23 TCU [Evaluation for TRCU] Routine Comment: Physician Instructions: Reason For Exam: weakness 08/16/18 08:28 Infectious Disease Consult Routine Comment: Consulting Provider: Rohan Gautam Consulting Physician: Rohan Gautam Reason for Consult: possible meningoencephalitis 08/16/18 12:43 Neurology Consult Routine Comment: Consulting Provider: Rodney Gentile Consulting Physician: Rodney Gentile Reason for Consult: TIA, Meningoencephalitis? 08/16/18 12:44 Physician Consult Routine Comment: Consulting Provider: Pelon Askew Consulting Physician: Pelon Askew Reason for Consult: Urinary frequency; BPH 08/16/18 15:22 Nursing Referral for Wound Care Routine Comment: Physician Instructions: Reason For Exam: EVALUATION 08/16/18 15:29 Nursing Referral for Palliative Care Routine Comment: Physician Instructions: Reason For Exam: EVALUATION Social Work Referral Routine Comment: DISCHARGE PLANNING TO REHAB FOR DECONDITIONING Physician Instructions: Reason For Exam: EVALUATION Hospital Course - Lab Results Lab Results: Most Recent Lab Values WBC 9.5 10^3/uL (4.5-11.0) 08/17/18 07:00 RBC 4.49 10^6/uL (3.5-6.1) 08/17/18 07:00 Hgb 13.6 g/dL (14.0-18.0) L 08/17/18 07:00 Hct 41.4 % (42.0-52.0) L 08/17/18 07:00 MCV 92.2 fl (80.0-105.0) 08/17/18 07:00 MCH 30.3 pg (25.0-35.0) 08/17/18 07:00 MCHC 32.9 g/dl (31.0-37.0) 08/17/18 07:00 RDW 13.4 % (11.5-14.5) 08/17/18 07:00 Plt Count 275 10^3/uL (120.0-450.0) 08/17/18 07:00 MPV 9.5 fl (7.0-11.0) 08/17/18 07:00 Neut % (Auto) 69.1 % (50.0-68.0) H 08/17/18 07:00 Lymph % (Auto) 20.3 % (22.0-35.0) L 08/17/18 07:00 [place] % (Auto) 8.3 % (1.0-6.0) H 08/17/18 07:00 Eos % (Auto) 2.0 % (1.5-5.0) 08/17/18 07:00 Baso % (Auto) 0.3 % (0.0-3.0) 08/17/18 07:00 Lymph # (Auto) 1.9 (1.2-3.4) 08/17/18 07:00 [place] # (Auto) 0.8 (0.1-0.6) H 08/17/18 07:00 Eos # (Auto) 0.2 (0.0-0.7) 08/17/18 07:00 Baso # (Auto) 0.03 K/mm3 (0.0-2.0) 08/17/18 07:00 Absolute Neuts (auto) 6.59 (1.4-6.5) H 08/17/18 07:00 PT 55.0 SECONDS (9.4-12.5) H 08/17/18 07:00 INR 4.87 H* 08/17/18 07:00 APTT 45.0 Seconds (26.9-38.3) H 08/16/18 06:06 Sodium 137 mmol/L (132-148) 08/17/18 07:00 Potassium 3.8 mmol/L (3.6-5.0) 08/17/18 07:00 Chloride 100 mmol/L (98-107) 08/17/18 07:00 Carbon Dioxide 29 mmol/L (21-33) 08/17/18 07:00 Anion Gap 12 (10-20) 08/17/18 07:00 BUN 8 mg/dL (7-21) 08/17/18 07:00 Creatinine 0.6 mg/dl (0.8-1.5) L 08/17/18 07:00 Est GFR ( Amer) > 60 08/17/18 07:00 Est GFR (Non-Af Amer) > 60 08/17/18 07:00 Random Glucose 111 mg/dL (70-110) H 08/17/18 07:00 Hemoglobin A1c 5.9 % (4.2-6.5) 08/16/18 05:04 Calcium 9.3 mg/dL (8.4-10.5) 08/17/18 07:00 Total Bilirubin 0.7 mg/dL (0.2-1.3) 08/17/18 07:00 AST 74 U/L (17-59) H D 08/17/18 07:00 ALT 31 U/L (7-56) 08/17/18 07:00 Alkaline Phosphatase 67 U/L (38-126) 08/17/18 07:00 Troponin I 0.02 ng/mL D 08/16/18 06:06 Total Protein 7.3 g/dL (5.8-8.3) 08/17/18 07:00 Albumin 3.7 g/dL (3.0-4.8) 08/17/18 07:00 Globulin 3.7 gm/dL 08/17/18 07:00 Albumin/Globulin Ratio 1.0 (1.1-1.8) L 08/17/18 07:00 Triglycerides 121 mg/dL (35-160) 08/16/18 06:06 Cholesterol 89 mg/dL (130-200) L 08/16/18 06:06 LDL Cholesterol Direct 53 mg/dL (0-129) 08/16/18 06:06 HDL Cholesterol 20 mg/dL (29-60) L 08/16/18 06:06 Blood Type O POSITIVE 08/16/18 06:06 Antibody Screen Negative 08/16/18 06:06 BBK History Checked Patient has bt 08/16/18 06:06 - Hospital Course Hospital Course: Pt seen and examined by me. I have reviewed the note of the medical representative and I agree with it. I have discussed the assessment and plan with the resident. I have reviewed the medications and the last labs. Pt with episode of delirium that is improving. Spoke to daughter and we have decided not to do the MRI. He is on IV abx for his sepsis that is improving. He is going to the TCU today and the daughter is in agreement. He has CAD and HTN that is controlled. He could be eating better. He needs PT.
--- NOTE | 2018-08-17 14:14 | CP.PCM.PN ---
Subjective - Date & Time of Evaluation Date of Evaluation: 08/17/18 Time of Evaluation: 10:50 - Subjective Subjective: As per the daughter, he is more awake in the morning, but still has bouts of confusion, no fevers, no diarrhea, currently sleeping. Objective - Vital Signs/Intake and Output Vital Signs (last 24 hours): Temp Pulse Resp BP Pulse Ox 97.8 F 62 18 142/61 95 08/16/18 04:36 08/16/18 14:47 08/16/18 14:47 08/16/18 07:25 08/16/18 07:25 - Medications Medications: Current Medications Acetaminophen (Tylenol 325mg Tab) 650 mg PO Q6H PRN PRN Reason: Fever >100.4 F Atorvastatin Calcium (Lipitor) 20 mg PO DIN [facility] Carvedilol (Coreg) 6.25 mg PO BID [facility] Last Admin: 08/16/18 10:22 Dose: Not Given Clopidogrel Bisulfate (Plavix) 75 mg PO DAILY [facility] Last Admin: 08/16/18 10:23 Dose: Not Given Finasteride (Proscar) 5 mg PO DAILY [facility] Last Admin: 08/16/18 10:23 Dose: Not Given Sodium Chloride (Sodium Chloride 0.9%) 1,000 mls @ 100 mls/hr IV .Q10H [facility] Last Admin: 08/16/18 16:12 Dose: Not Given Acyclovir 600 mg/ Sodium (Chloride) 100 mls @ 100 mls/hr IV Q8H [facility] Last Admin: 08/16/18 14:21 Dose: 100 mls/hr Ampicillin 2 gm/ Sodium (Chloride) 100 mls @ 200 mls/hr IVPB Q6 [facility] Last Admin: 08/16/18 16:11 Dose: 200 mls/hr Meropenem (Merrem Iv 1 Gm Premix) 1 gm in 50 mls @ 100 mls/hr IVPB Q8 [facility]; Pr otocol Stop: 08/23/18 10:01 Last Admin: 08/16/18 16:50 Dose: 100 mls/hr Mesalamine (Pentasa) 1,500 mg PO BID [facility] Last Admin: 08/16/18 10:22 Dose: Not Given Pantoprazole Sodium (Protonix Ec Tab) 40 mg PO 0630 [facility] Warfarin Sodium (Coumadin) 4 mg PO 1800 [facility] - Labs Labs: 08/16/18 05:04 02/21/19 06:06 PT 39.2 SECONDS (9.4-12.5) H 08/16/18 06:06 INR 3.47 08/16/18 06:06 APTT 45.0 Seconds (26.9-38.3) H 08/16/18 06:06 - Constitutional Appears: Chronically Ill - Head Exam Head Exam: NORMAL INSPECTION - Neck Exam Neck Exam: absent: Meningismus - Respiratory Exam Respiratory Exam: Decreased Breath Sounds - Cardiovascular Exam Cardiovascular Exam: +S1, +S2 - GI/Abdominal Exam GI & Abdominal Exam: Soft. absent: Tenderness Assessment and Plan - Assessment and Plan (Free Text) Plan: Assessment Systemic inflammatory response syndrome, with fevers, consider sepsis due to left sided HCAP, need to rule out meningoencephalitis, slowly improving CAD S/P CABG S/P PCI HTN history of TIA BPH ascending aortic aneurysm S/P repair S/P aortic valve replacement Crohn's disease dyslipidemia history of spinal laminectomy Plan continue Merrem day 10 and Acyclovir day 9 and added Ampicillin; target 10-14 days of antibiotics and antivirals - we have discontinued Doxycycline (completed 7 days and urine Legionella Ag is negative) reviewed CT C/A/P showing left sided nodular infiltrates would recommend lumbar puncture for CSF analysis - discussed with Dr. Marie previously - daughter refused due history of spinal surgery will continue to monitor clinically serum Crypt Ag is negative prognosis is guarded follow up further recommendations of Neurology
[2018-08-17 17:06] VITALS: BP 118/68
[2018-08-17 18:38] VITALS: PULSE 83; TEMP 98.3
== END 2018-08-17 19:02 ==
LOC: ED 04:28 → ERH 05:09 → 2RNO 08:54
PROVIDERS: ADMIT Internal Medicine Nephrology; ATTEND Internal Medicine Nephrology
DX: R53.1 Weakness (principal); A41.9 Sepsis, unspecified organism; J18.9 Pneumonia, unspecified organism; I25.10 Atherosclerotic heart disease of native coronary artery without angina pectoris; N40.0 Benign prostatic hyperplasia without lower urinary tract symptoms; I50.9 Heart failure, unspecified; I11.0 Hypertensive heart disease with heart failure; I25.2 Old myocardial infarction; K50.90 Crohn's disease, unspecified, without complications; E78.5 Hyperlipidemia, unspecified; E11.9 Type 2 diabetes mellitus without complications; Y95 Nosocomial condition; Z95.1 Presence of aortocoronary bypass graft; Z95.5 Presence of coronary angioplasty implant and graft; Z87.891 Personal history of nicotine dependence; Z95.2 Presence of prosthetic heart valve; Z86.73 Personal history of transient ischemic attack (TIA), and cerebral infarction without residual deficits
CPT/HCPCS: 36415; 71045; 80053; 80061; 83036; 84484; 85025; 85610; 85730; 86850; 86900; 92610; 93005; 99285; G0378; G8996; G8997; J0133; J0290; J2185; J7030; Q9967

== ENCOUNTER 2018-08-16 08:06 | Outpatient (CLI) | payer MEDICARE | END 2018-08-16 08:07 | disposition home or self-care (01) | LOC: RAD 08:06 ==

== ENCOUNTER 2018-08-17 19:04 | Inpatient (IN) | payer MEDICARE ==
[2018-08-17 19:39] VITALS: BMI 24.2
[2018-08-17] MEDS ORDERED: Acyclovir 500 mg Inj IV SCH (19:45)
[2018-08-17] MEDS: Meropenem IV 1 gm in NS 1 GM/50 ML BAG IVPB SCH (21:47)
[2018-08-18] MEDS: AMPicillin 2 GM in Sodium Chloride 0.9% 100 ML IVPB SCH ×4 (00:46→18:06)
[2018-08-18] MEDS: Meropenem IV 1 gm in NS 1 GM/50 ML BAG IVPB SCH ×3 (05:22→21:36)
[2018-08-18] MEDS: Pantoprazole 40 mg EC Tab PO SCH (06:52)
[2018-08-18] MEDS: Mesalamine ER Cap 500 MG PO SCH ×2 (09:59→18:08)
--- NOTE | 2018-08-18 11:38 | CP.PCM.HP ---
<Gerardo Arce - Last Filed: 08/18/18 11:40> History of Present Illness - History of Present Illness History of Present Illness: H&P for Dr Marie: 88 year old male, whose past medical history includes TIA, BPH, CABG s/p [place], CAD with coronary stents, hypertension, ascending thoracic aneurysm repair, AV valve replacement, Crohn's disease, and dyslipidemia, presents initially from the TCU. Patient was just recently hospitalized for headache and found to have sepsis and treated for HCAP, and r/o meningeal encephalitis. Patient was found not responding in the TCU with some extremity weakness and K [employer] PRINCIPAL followed by code stroke was called. Patient was taken to the ER at this time. CT of the head and CTA were both negative. Patient was seen and examined at bedside. No acute events overnight. Today the patient states that he is doing much better. No episode of confusion. No comp laints. 12 point ROS performed and negative other than stated above PMH: As above PSH: CABG Allergies: Pneumococcal vaccine, anesthetics including alejandra type parabens SH: Former smoker over 30 years ago, denies any drinking or drugs FH: Denies Present on Admission - Present on Admission Any Indicators Present on Admission: No Past Patient History - Infectious Disease Hx of Infectious Diseases: None - Past Social History Smoking Status: Never Smoked - CARDIAC Hx Cardiac Disorders: Yes (CABG s/p [place], CAD with coronary stents,) Hx Congestive Heart Failure: Yes Hx Hypertension: Yes - PULMONARY Hx Respiratory Disorders: Yes Hx Pneumonia: Yes - NEUROLOGICAL HX Cerebrovascular Accident: Yes - HEENT Hx HEENT Problems: Yes Hx Cataracts: Yes - RENAL Hx Chronic Kidney Disease: No - ENDOCRINE/METABOLIC Hx Diabetes Mellitus Type 2: Yes - HEMATOLOGICAL/ONCOLOGICAL Hx Blood Disorders: No - INTEGUMENTARY Hx Dermatological Problems: No - MUSCULOSKELETAL/RHEUMATOLOGICAL Hx Falls: No - GASTROINTESTINAL Hx Gastrointestinal Disorders: Yes (Crohn's) - GENITOURINARY/GYNECOLOGICAL Hx Genitourinary Disorders: Yes Hx Reproductive Disorders: No - PSYCHIATRIC Hx Emotional Abuse: No Hx Physical Abuse: No Hx Substance Use: No - SURGICAL HISTORY Hx Surgeries: Yes (back sx: 2009) - ANESTHESIA Hx Anesthesia Reactions: No Hx Malignant Hyperthermia: No Meds Allergies/Adverse Reactions: Allergies Allergy/AdvReac Type Severity Reaction Status Date / Time pneumococcal vaccine Allergy Severe RASH Verified 08/16/18 12:39 Anesthetics - Alejandra Type- AdvReac ANAPHYLAXIS Verified 08/16/18 12:39 Parabens Results - Vital Signs Recent Vital Signs: Last Vital Signs Temp 98.0 F 08/17/18 20:23 Pulse 88 08/17/18 20:23 Resp 18 08/17/18 20:23 BP 137/71 08/18/18 09:32 Pulse Ox Assessment & Plan - Assessment and Plan (Free Text) Assessment: 1. AMS 2/2 TIA vs Delirium 2. Sepsis likely 2/2 HCAP r/o meningoencephalitis 3. headaches 4. nausea vomiting 5. CAD with CABG and stent placement 6. Hypertension 7. BPH 8. History of TIA 9. Crohn's disease Continue with physical therapy in the TCU. Follow-up further neurology recommendations. Cont meropenem, Ampicilin and acyclovir as per ID. Neuro and ID recommended a spinal lumbar puncture tap however the patient's daughter refused. Patient with a history of TIAs therefore we will continue Plavix. History of valve replacement and therefore on Coumadin, INR supratherapeutic yesterday. F/u INR today and will decide resuming Coumadin. We will continue with Lipitor for his hyperlipidemia, continue with Coreg for his hypertension, continue with mesalamine for his Crohn's disease. Urology was consulted for his urinary frequency, BPH. GI/DVT ppx. We will continue to monitor for any changes. Case and plan was reviewed and discussed with Dr. Marie <Reji Marie - Last Filed: 08/18/18 17:43> Results - Vital Signs Recent Vital Signs: Last Vital Signs Temp 98.4 F 08/18/18 10:00 Pulse 86 08/18/18 10:00 Resp 20 08/18/18 10:00 BP 115/63 08/18/18 10:00 Pulse Ox 96 08/18/18 10:00 - Labs Labs: Laboratory Results - last 24 hr 08/18/18 13:00 PT 29.2 H INR 2.58 Assessment & Plan - Assessment and Plan (Free Text) Assessment: Pt seen and examined by me. I have reviewed the note of the biomedical engineering supervisor and I agree with it. I have discussed the assessment and plan with the resident. I have reviewed the medications and the last labs. Pt with Delirium that is improving. He had sepsis and was on IV Abx and Antiviral medications. His hospital records have been reviewed. He is on Coumadin for his valve replacement. He is on Lipitro for dyslipidemia. He will continue with Coreg for his HTN. He does have urinary frequency due to his BPH.
[2018-08-18 13:18] LABS: INR 2.58; PROTHROMBIN TIME 29.2 SECONDS (9.4-12.5)
--- NOTE | 2018-08-18 18:13 | CON ---
DATE OF CONSULTATION: 08/18/2018 The patient is seen earlier today in Room 314. CHIEF COMPLAINT: Weakness for several days. HISTORY OF PRESENT ILLNESS: This is an 88-year-old male. Seen with the patient is the patient's daughter in the room. The patient is known to me and as is the patient's daughter from previous admissions, who is admitted on this admission with a history of coronary artery disease, history of coronary artery bypass graft, PCI, history of TIA, BPH, ascending aortic aneurysm repair in the past and aortic valve replacement. The patient with a history of Crohn disease and dyslipidemia, who is admitted because of the headaches and fevers, had been on treatment for pneumonia, possible meningeal encephalitis, and the patient is much improved now, I admitted to the transitional care for further completion of treatment. The patient's daughter stated that the patient is almost back to his baseline and had no fevers, no chills. He is eating well. No nausea or vomiting. PAST MEDICAL HISTORY: Significant for BPH, TIA, hypertension, AAA, Crohn disease, coronary artery disease, and dyslipidemia. PAST SURGICAL HISTORY: Significant for spinal laminectomy, coronary artery bypass graft, PCI, AAA repair, and AVR. MEDICATIONS AT HOME: Reviewed and include Coumadin, Zocor, Protonix, Pentasa, Proscar, and Plavix. ALLERGIES: PNEUMOCOCCAL VACCINE, ANESTHETICS, AND . REVIEW OF SYSTEMS: A 12-point review of systems is performed. PHYSICAL EXAMINATION: GENERAL: The patient is in bed, in no acute distress. VITAL SIGNS: Temperature of 98, blood pressure is 130/70, respiratory rate of 18, and heart rate of 88. HEENT: Unremarkable. NECK: Supple. LUNGS: Have decreased breath sounds. HEART: Normal S1 and S2. ABDOMEN: Soft. LABORATORY EXAMINATION: White count of 9.5, hemoglobin of 13. Coagulation is reviewed. The chemistries reveal a creatinine of 0.6. The LFTs are noted. Microbiology reveals the patient's blood cultures from 08/07/2018 are negative. Urine cultures from 08/07/2018 are negative. ASSESSMENT: This is an 88-year-old Greek male, whose daughter is at the bedside, who is now admitted here to the Transitional Care with systemic inflammatory response syndrome and sepsis with left-sided healthcare-associated pneumonia, questionable encephalitis. The patient with hypertension, history of transient ischemic attack, benign prostatic hypertrophy, aortic aneurysm repair, aortic valve replacement, Crohn's disease, dyslipidemia. PLAN: Today is day #11 of meropenem and #10 of acyclovir and ampicillin. Recommend following the imaging of the infiltrates in the chest to resolution. Review of orders reveals the ampicillin to be active, meropenem to be active, and acyclovir to be active. We will follow with you. Rohan Gautam MD
[2018-08-19] MEDS: AMPicillin 2 GM in Sodium Chloride 0.9% 100 ML IVPB SCH ×2 (00:29→06:33)
[2018-08-19] MEDS: Meropenem IV 1 gm in NS 1 GM/50 ML BAG IVPB SCH (05:37)
[2018-08-19] MEDS: Pantoprazole 40 mg EC Tab PO SCH (06:34)
[2018-08-19 08:32] LABS: INR 1.87; PROTHROMBIN TIME 21.1 SECONDS (9.4-12.5)
[2018-08-19] MEDS: Mesalamine ER Cap 500 MG PO SCH ×2 (10:01→18:32)
--- NOTE | 2018-08-19 10:53 | CP.PCM.PN ---
<Gerardo Arce - Last Filed: 08/19/18 10:49> Subjective - Date & Time of Evaluation Date of Evaluation: 08/19/18 Time of Evaluation: 08:00 - Subjective Subjective: Medicine progress note: Patient seen and examined at bedside. No acute events overnight. Patient complains of mild headache. Patient's daughter at bedside complains of some episodes of confusion. However the patient is overall doing well physical therapy. 12 point ROS performed and negative other than stated above Objective - Vital Signs/Intake and Output Vital Signs (last 24 hours): Temp Pulse Resp BP Pulse Ox 98.4 F 64 20 138/76 96 08/18/18 10:00 08/19/18 10:00 08/18/18 10:00 08/19/18 10:00 08/18/18 10:00 - Medications Medications: Current Medications Acetaminophen (Tylenol 325mg Tab) 650 mg PO Q6H PRN PRN Reason: Fever >100.4 F Last Admin: 08/18/18 11:17 Dose: 650 mg Acetaminophen (Tylenol 325mg Tab) 650 mg PO Q4H PRN; Protocol PRN Reason: Pain, moderate (4-7) Atorvastatin Calcium (Lipitor) 20 mg PO DIN [facility]; Protocol Last Admin: 08/18/18 18:08 Dose: 20 mg Carvedilol (Coreg) 6.25 mg PO BID [facility]; Protocol Last Admin: 08/19/18 10:00 Dose: 6.25 mg Clopidogrel Bisulfate (Plavix) 75 mg PO DAILY [facility]; Protocol Last Admin: 08/19/18 10:00 Dose: 75 mg Finasteride (Proscar) 5 mg PO DAILY [facility]; Protocol Last Admin: 08/19/18 10:01 Dose: 5 mg Ampicillin 2 gm/ Sodium (Chloride) 100 mls @ 200 mls/hr IVPB Q6 [facility]; Protocol Last Admin: 08/19/18 06:33 Dose: 200 mls/hr Acyclovir 600 mg/ Sodium (Chloride) 100 mls @ 100 mls/hr IV Q8 [facility] Last Admin: 08/19/18 07:08 Dose: 100 mls/hr Meropenem (Merrem Iv 1 Gm Premix) 1 gm in 50 mls @ 100 mls/hr IVPB Q8 [facility]; Protocol Last Admin: 08/19/18 05:37 Dose: 100 mls/hr Loperamide HCl (Imodium) 2 mg PO QID PRN; Protocol PRN Reason: Diarrhea Last Admin: 08/18/18 03:16 Dose: 2 mg Mesalamine (Pentasa) 1,500 mg PO BID [facility]; Protocol Last Admin: 08/19/18 10:01 Dose: 1,500 mg Pantoprazole Sodium (Protonix Ec Tab) 40 mg PO 0630 [facility]; Protocol Last Admin: 08/19/18 06:34 Dose: 40 mg Tamsulosin HCl (Flomax) 0.4 mg PO 1830 [facility] Warfarin Sodium (Coumadin) 5 mg PO 1800 [facility]; Protocol - Labs Labs: PT 21.1 SECONDS (9.4-12.5) H 08/19/18 08:15 INR 1.87 08/19/18 08:15 - Constitutional Appears: No Acute Distress - Head Exam Head Exam: ATRAUMATIC, NORMOCEPHALIC - Eye Exam Eye Exam: EOMI - ENT Exam ENT Exam: Mucous Membranes Moist - Respiratory Exam Respiratory Exam: Clear to Ausculation Bilateral. absent: Rales, Wheezes - Cardiovascular Exam Cardiovascular Exam: REGULAR RHYTHM, +S1, +S2 - GI/Abdominal Exam GI & Abdominal Exam: Soft. absent: Tenderness - Extremities Exam Extremities Exam: absent: Calf Tenderness, Pedal Edema - Neurological Exam Neurological Exam: Alert, Awake, Oriented x3 - Psychiatric Exam Psychiatric exam: Normal Mood - Skin Skin Exam: Dry, Warm Assessment and Plan - Assessment and Plan (Free Text) Assessment: 1. AMS 2/2 TIA vs Delirium 2. Sepsis likely 2/2 HCAP r/o meningoencephalitis 3. headaches 4. nausea vomiting 5. CAD with CABG and stent placement 6. Hypertension 7. BPH 8. History of TIA 9. Crohn's disease Patients with occasional episodes of confusion likely due to delirium. Spoke to the patient's daughter regarding orienting patient and continue physical therapy. Follow-up further neurology recommendations. Cont meropenem, Ampicilin and acyclovir as per ID. Neuro and ID recommended a spinal lumbar puncture tap however the patient's daughter refused. Patient with a history of TIAs therefore we will continue Plavix. History of valve replacement and therefore on Coumadin, INR subtherapeutic today. Patient was started on his 5 mg grams of Coumadin daily.Continue to monitor INR daily. We will continue with Lipitor for his hyperlipidemia, continue with Coreg for his hypertension, continue with mesalamine for his Crohn's disease. Urology was consulted for his urinary frequency, BPH. GI/DVT ppx. We will continue to monitor for any changes. Case and plan was reviewed and discussed with Dr. Marie <Reji Marie - Last Filed: 08/19/18 18:31> Objective - Vital Signs/Intake and Output Vital Signs (last 24 hours): Temp Pulse Resp BP Pulse Ox 98.1 F 77 18 113/59 L 98 08/19/18 16:00 08/19/18 16:00 08/19/18 16:00 08/19/18 16:00 08/19/18 16:00 - Medications Medications: Current Medications Acetaminophen (Tylenol 325mg Tab) 650 mg PO Q6H PRN PRN Reason: Fever >100.4 F Last Admin: 08/18/18 11:17 Dose: 650 mg Acetaminophen (Tylenol 325mg Tab) 650 mg PO Q4H PRN; Protocol PRN Reason: Pain, moderate (4-7) Atorvastatin Calcium (Lipitor) 20 mg PO DIN [facility]; Protocol Last Admin: 08/18/18 18:08 Dose: 20 mg Carvedilol (Coreg) 6.25 mg PO BID [facility]; Protocol Last Admin: 08/19/18 10:00 Dose: 6.25 mg Clopidogrel Bisulfate (Plavix) 75 mg PO DAILY [facility]; Protocol Last Admin: 08/19/18 10:00 Dose: 75 mg Finasteride (Proscar) 5 mg PO DAILY [facility]; Protocol Last Admin: 08/19/18 10:01 Dose: 5 mg Loperamide HCl (Imodium) 2 mg PO QID PRN; Protocol PRN Reason: Diarrhea Last Admin: 08/18/18 03:16 Dose: 2 mg Mesalamine (Pentasa) 1,500 mg PO BID [facility]; Protocol Last Admin: 08/19/18 10:01 Dose: 1,500 mg Pantoprazole Sodium (Protonix Ec Tab) 40 mg PO 0630 [facility]; Protocol Last Admin: 08/19/18 06:34 Dose: 40 mg Tamsulosin HCl (Flomax) 0.4 mg PO 1830 [facility] Warfarin Sodium (Coumadin) 5 mg PO 1800 [facility]; Protocol - Labs Labs: PT 21.1 SECONDS (9.4-12.5) H 08/19/18 08:15 INR 1.87 08/19/18 08:15 Assessment and Plan - Assessment and Plan (Free Text) Assessment: Pt seen and examined by me. I have reviewed the note of the medical reimbursement specialist and I agree with it. I have discussed the assessment and plan with the resident. I have reviewed the medications and the last labs.
[2018-08-19 17:00] VITALS: RESP 18
--- NOTE | 2018-08-19 17:28 | PN ---
DATE: 08/19/2018 SUBJECTIVE: The patient is in bed, in no acute distress, nontoxic. PHYSICAL EXAMINATION: VITAL SIGNS: The patient's temperature is 98, blood pressure is 138/70, respiratory rate of 18, and heart rate of 86. HEENT: Unremarkable. NECK: Supple. LUNGS: Decreased breath sounds. HEART: Normal S1 and S2. ABDOMEN: Soft and nontender. LABORATORY DATA: Laboratory examination is reviewed. The patient's last creatinine of 0.6, was on 08/17/2018. Review of orders revealed the patient is on ampicillin, meropenem, acyclovir. ASSESSMENT AND PLAN: This is an 88-year-old male, whose daughter is at the bedside, in Transitional Care with systemic inflammatory response syndrome and sepsis with left-sided healthcare-associated pneumonia, questionable encephalitis in a patient with hypertension, history of transient ischemic attack, benign prostatic hypertrophy, aortic aneurysm repair, aortic valve replacement, Crohn's disease. On day #12 of meropenem, day #11 of acyclovir and ampicillin. We will discontinue the antibiotics. Review of notes from Acute Care and Transitional Care from that point, the patient on 08/08/2018, and Dr. Montanez's original consult on 08/09/2018. The patient was on acyclovir since 08/09/2018 and so he patient has received over 10 days of meropenem and acyclovir. We will discontinue acyclovir and meropenem. The patient is at risk for developing nosocomial infections. Ampicillin was added on 08/12/2018, which makes 8 days of ampicillin. We will discontinue the oral antibiotics including acyclovir, meropenem, and ampicillin. We will follow closely with you. The patient is at risk for developing nosocomial infections. Case was discussed with the patient's daughter at length. Rohan Gautam MD
--- NOTE | 2018-08-19 22:43 | PN ---
DATE: 08/19/2018 SUBJECTIVE: The patient has no complaints. PHYSICAL EXAMINATION: VITAL SIGNS: Temperature is 98.1, pulse is 97, blood pressure is 113/59, respirations 18. GENERAL: The patient is lying in bed, flat, comfortable. HEENT: No oral lesion. Anicteric sclerae. Moist mucosa. NECK: No JVD, adenopathy, or thyromegaly. CARDIOVASCULAR: S1 and S2, regular. No murmurs, rubs, or gallops. LUNGS: Clear to auscultation bilaterally. No wheeze, rales, or rhonchi. ABDOMEN: Bowel sounds are positive, soft, nontender and nondistended. EXTREMITIES: No cyanosis, clubbing or edema. -Delirium hospital-acquired infections. headaches coronary artery disease. dyslipidemia. hypertension. Crohn disease. BPH. I did review the note of the medical record and I do agree with the note. The patient had an episode of delirium. He has been having these multiple episodes, he has had multiple CAT scans. I do not think that an MRI is warranted. 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 I did review the note of the medical regimen, I agree with this note. The patient's meds have been reviewed. I did have a long discussion with the patient and his daughter regarding the patient's plan of care. I think that he is going to continue to progress and decline, he has been declining over the last year. He has been in the hospital for about 10 days including the transitional care unit and had made some improvement, but his mental status continues to wax and wane. He is deconditioned. Reji Marie MD [facility]
[2018-08-20] MEDS: Pantoprazole 40 mg EC Tab PO SCH (06:11)
[2018-08-20 07:46] LABS: INR 1.51; PROTHROMBIN TIME 17.1 SECONDS (9.4-12.5)
--- NOTE | 2018-08-20 08:18 | CP.PCM.PN ---
<Gerardo Arce - Last Filed: 08/20/18 15:16> Subjective - Date & Time of Evaluation Date of Evaluation: 08/20/18 Time of Evaluation: 07:10 - Subjective Subjective: Medicine progress note: Patient seen and examined at bedside. No acute events overnight. Patient along with doreener state that he did very well with PT yesterday. No complaints. 12 point ROS performed and negative other than stated above Objective - Vital Signs/Intake and Output Vital Signs (last 24 hours): Temp Pulse Resp BP Pulse Ox 98.1 F 77 18 113/59 L 98 08/19/18 16:00 08/19/18 18:30 08/19/18 16:00 08/19/18 18:30 08/19/18 16:00 - Medications Medications: Current Medications Acetaminophen (Tylenol 325mg Tab) 650 mg PO Q6H PRN PRN Reason: Fever >100.4 F Last Admin: 08/18/18 11:17 Dose: 650 mg Acetaminophen (Tylenol 325mg Tab) 650 mg PO Q4H PRN; Protocol PRN Reason: Pain, moderate (4-7) Last Admin: 08/20/18 08:01 Dose: 650 mg Atorvastatin Calcium (Lipitor) 20 mg PO DIN [facility]; Protocol Last Admin: 08/19/18 18:32 Dose: 20 mg Carvedilol (Coreg) 6.25 mg PO BID [facility]; Protocol Last Admin: 08/19/18 18:30 Dose: 6.25 mg Clopidogrel Bisulfate (Plavix) 75 mg PO DAILY [facility]; Protocol Last Admin: 08/19/18 10:00 Dose: 75 mg Enoxaparin Sodium (Lovenox) 60 mg SC Q12H [facility]; Protocol Finasteride (Proscar) 5 mg PO DAILY [facility]; Protocol Last Admin: 08/19/18 10:01 Dose: 5 mg Loperamide HCl (Imodium) 2 mg PO QID PRN; Protocol PRN Reason: Diarrhea Last Admin: 08/18/18 03:16 Dose: 2 mg Mesalamine (Pentasa) 1,500 mg PO BID [facility]; Protocol Last Admin: 08/19/18 18:32 Dose: 1,500 mg Pantoprazole Sodium (Protonix Ec Tab) 40 mg PO 0630 [facility]; Protocol Last Admin: 08/20/18 06:11 Dose: 40 mg Tamsulosin HCl (Flomax) 0.4 mg PO 1830 [facility] Last Admin: 08/19/18 18:32 Dose: 0.4 mg Warfarin Sodium (Coumadin) 5 mg PO 1800 [facility]; Protocol Last Admin: 08/19/18 18:31 Dose: 5 mg Warfarin Sodium (Coumadin) 7.5 mg PO STAT [facility]; Protocol Stop: 08/20/18 08:16 - Labs Labs: PT 17.1 SECONDS (9.4-12.5) H 08/20/18 07:00 INR 1.51 08/20/18 07:00 - Constitutional Appears: No Acute Distress - Head Exam Head Exam: ATRAUMATIC, NORMOCEPHALIC - Eye Exam Eye Exam: EOMI - ENT Exam ENT Exam: Mucous Membranes Moist - Respiratory Exam Respiratory Exam: Clear to Ausculation Bilateral. absent: Rales, Wheezes - Cardiovascular Exam Cardiovascular Exam: REGULAR RHYTHM, +S1, +S2 - GI/Abdominal Exam GI & Abdominal Exam: Soft, Normal Bowel Sounds - Neurological Exam Neurological Exam: Alert, Awake, Oriented x3 - Psychiatric Exam Psychiatric exam: Normal Mood - Skin Skin Exam: Dry, Intact, Warm Assessment and Plan - Assessment and Plan (Free Text) Assessment: 1. AMS 2/2 TIA vs Delirium 2. Sepsis likely 2/2 HCAP r/o meningoencephalitis 3. headaches 4. nausea vomiting 5. CAD with CABG and stent placement 6. Hypertension 7. BPH 8. History of TIA 9. Crohn's disease Continua physical therapy in the TCU. Follow-up further neurology recommendations. Meropenem, Ampicilin and acyclovir has all been completed, will monitor off abx and antiviral at this time as per ID. Neuro and ID recommended a spinal lumbar puncture tap however the patient's daughter refused. Patient with a history of TIAs therefore we will continue Plavix. History of valve replacement and therefore on Coumadin, INR subtherapeutic today, Coumadin 7.5 stat and started on Lovenox 60 Q12H. Continue to monitor INR daily. We will continue with Lipitor for his hyperlipidemia, continue with Coreg for his hypertension, continue with mesalamine for his Crohn's disease. Urology was consulted for his urinary frequency, BPH. GI/DVT ppx. We will continue to monitor for any changes. Case and plan was reviewed and discussed with Dr. Marie <Reji Marie - Last Filed: 08/20/18 17:31> Objective - Vital Signs/Intake and Output Vital Signs (last 24 hours): Temp Pulse Resp BP Pulse Ox 100.1 F H 74 18 172/82 H 97 08/20/18 16:45 08/20/18 17:00 08/20/18 16:00 08/20/18 17:00 08/20/18 16:00 - Medications Medications: Current Medications Acetaminophen (Tylenol 325mg Tab) 650 mg PO Q6H PRN PRN Reason: Fever >100.4 F Last Admin: 08/20/18 16:45 Dose: 650 mg Acetaminophen (Tylenol 325mg Tab) 650 mg PO Q4H PRN; Protocol PRN Reason: Pain, moderate (4-7) Last Admin: 08/20/18 12:33 Dose: 650 mg Amlodipine Besylate (Norvasc) 2.5 mg PO DAILY [facility] Last Admin: 08/20/18 14:51 Dose: 2.5 mg Atorvastatin Calcium (Lipitor) 20 mg PO DIN [facility]; Protocol Last Admin: 08/19/18 18:32 Dose: 20 mg Carvedilol (Coreg) 6.25 mg PO BID [facility]; Protocol Last Admin: 08/20/18 11:07 Dose: 6.25 mg Clopidogrel Bisulfate (Plavix) 75 mg PO DAILY [facility]; Protocol Last Admin: 08/20/18 10:39 Dose: 75 mg Enoxaparin Sodium (Lovenox) 60 mg SC Q12H [facility]; Protocol Last Admin: 08/20/18 08:43 Dose: 60 mg Finasteride (Proscar) 5 mg PO DAILY [facility]; Protocol Last Admin: 08/20/18 10:39 Dose: 5 mg Meropenem (Merrem Iv 1 Gm Premix) 1 gm in 50 mls @ 12.5 mls/hr IVPB 0600,1400,2200 [facility]; Protocol Stop: 08/23/18 09:59 Vancomycin HCl (Vancomycin 1gm) 1 gm in 250 mls @ 167 mls/hr IVPB 0600,1800 [facility]; Protocol Stop: 08/24/18 07:30 Loperamide HCl (Imodium) 2 mg PO QID PRN; Protocol PRN Reason: Diarrhea Last Admin: 08/20/18 08:30 Dose: 2 mg Mesalamine (Pentasa) 1,500 mg PO BID [facility]; Protocol Last Admin: 08/20/18 10:39 Dose: 1,500 mg Pantoprazole Sodium (Protonix Ec Tab) 40 mg PO 0630 [facility]; Protocol Last Admin: 08/20/18 06:11 Dose: 40 mg Tamsulosin HCl (Flomax) 0.4 mg PO 1830 [facility] Last Admin: 08/19/18 18:32 Dose: 0.4 mg Warfarin Sodium (Coumadin) 5 mg PO 1800 [facility]; Protocol Last Admin: 08/19/18 18:31 Dose: 5 mg - Labs Labs: PT 17.1 SECONDS (9.4-12.5) H 08/20/18 07:00 INR 1.51 08/20/18 07:00 Assessment and Plan - Assessment and Plan (Free Text) Assessment: Pt seen and examined by me. I have reviewed the note of the medical imaging technologist and I agree with it. I have discussed the assessment and plan with the resident. I have reviewed the medications and the last labs. Please see my dictated note.
[2018-08-20] MEDS: Enoxaparin 60 mg Syringe SC SCH ×2 (08:43→21:57)
[2018-08-20] MEDS: Mesalamine ER Cap 500 MG PO SCH ×2 (10:39→18:25)
[2018-08-20] MEDS ORDERED: Naproxen 275 mg Tab PO ONE (13:12)
--- NOTE | 2018-08-20 15:23 | CON ---
DATE: 08/20/2018 CHIEF COMPLAINT: History of delirium. HISTORY OF PRESENT ILLNESS: This is an 88-year-old man with a past medical history of TIA, CABG, status post [place], coronary artery disease with coronary stents, hypertension, ascending aortic aneurysm repair, aortic valve replacement, Crohn's disease, and dyslipidemia. The patient is on Coumadin and Plavix for stroke prevention. Recently, was on medical side for questionable TIA as well as delirium. Most recently, she was found to have for hospital-acquired pneumonia and questionable viral encephalitis. CTA of the head and CTA angio of the head were unremarkable. No acute intervention overnight. The patient is feeling much better and is getting out of bed to chair. The patient did have a headache this morning, which was likely related to elevated systolic blood pressures. Blood pressures are currently being monitored and being controlled. I did prescribe some naproxen for the patient's headache p.r.n. Will follows simple commands and moves all extremities. PAST MEDICAL HISTORY: As above. PAST SURGICAL HISTORY: CABG. ALLERGIES: PNEUMOCOCCAL VACCINE, ANESTHETICS AND . FAMILY HISTORY: Noncontributory. SOCIAL HISTORY: Former smoker, smoked over 30 years ago. Denies any illicit drug use, smoking, or EtOH abuse. REVIEW OF SYSTEMS: Fourteen-point review of systems is negative except as per the HPI. LABORATORY DATA: INR is 1.5. PHYSICAL EXAMINATION GENERAL: The patient is sitting up in bed and in no acute distress. VITAL SIGNS: Her temperature is 98.1, pulse rate of 77, blood pressure 177/82, respiratory rate 18, and oxygen saturation 99% on room air. HEENT: Atraumatic and normocephalic. PERRLA. Extraocular muscles are intact. NECK: Supple, no JVD and no adenopathy noted. LUNGS: Clear to auscultation. No adventitious sounds. HEART: S1 and S2. Normal rate and rhythm. No murmurs, rubs or gallops. ABDOMEN: Soft, nontender, and nondistended. Bowel sounds are present. EXTREMITIES: No clubbing, no cyanosis. Peripheral pulses 2+ felt bilaterally. NEUROLOGIC: The patient is alert, oriented to person, place, month and year. Speech is fluent without any errors. Cranial nerves II through XII are intact. Motor exam; moves all extremities equally. Toes are downgoing bilaterally. Sensory; light touch and pinprick, proprioception, and vibration are intact. DTRs are 2+ throughout. Coordination; [id number] is intact. No dysmetria noted. Gait is deferred for now. IMPRESSION: Change in mental status secondary to underlying acute delirium, superimposed underlying chronic medical condition with a questionable transient ischemic attack. PLAN: At this time, I recommend, 1. Plavix 75 mg for stroke prevention. 2. Lipitor 20 mg at bedtime for underlying hyperlipidemia. 3. Monitor electrolytes currently. 4. Naproxen p.r.n. for acute onset of headache, one dose if needed. 5. PT/OT eval for current deconditioning and delirium precautions. Thank you for this consult. Rodney Gentile MD MTDD
--- NOTE | 2018-08-20 17:40 | CP.PCM.PN ---
Subjective - Date & Time of Evaluation Date of Evaluation: 08/20/18 Time of Evaluation: 12:15 - Subjective Subjective: Resting on a chair, no fevers this morning, not in distress but BP is a little elevated. Objective - Vital Signs/Intake and Output Vital Signs (last 24 hours): Temp Pulse Resp BP Pulse Ox 98.1 F 77 18 113/59 L 98 08/19/18 16:00 08/19/18 18:30 08/19/18 16:00 08/19/18 18:30 08/19/18 16:00 - Medications Medications: Current Medications Acetaminophen (Tylenol 325mg Tab) 650 mg PO Q6H PRN PRN Reason: Fever >100.4 F Last Admin: 08/18/18 11:17 Dose: 650 mg Acetaminophen (Tylenol 325mg Tab) 650 mg PO Q4H PRN; Protocol PRN Reason: Pain, moderate (4-7) Atorvastatin Calcium (Lipitor) 20 mg PO DIN [facility]; Protocol Last Admin: 08/19/18 18:32 Dose: 20 mg Carvedilol (Coreg) 6.25 mg PO BID [facility]; Protocol Last Admin: 08/19/18 18:30 Dose: 6.25 mg Clopidogrel Bisulfate (Plavix) 75 mg PO DAILY [facility]; Protocol Last Admin: 08/19/18 10:00 Dose: 75 mg Finasteride (Proscar) 5 mg PO DAILY [facility]; Protocol Last Admin: 08/19/18 10:01 Dose: 5 mg Loperamide HCl (Imodium) 2 mg PO QID PRN; Protocol PRN Reason: Diarrhea Last Admin: 08/18/18 03:16 Dose: 2 mg Mesalamine (Pentasa) 1,500 mg PO BID [facility]; Protocol Last Admin: 08/19/18 18:32 Dose: 1,500 mg Pantoprazole Sodium (Protonix Ec Tab) 40 mg PO 0630 [facility]; Protocol Last Admin: 08/19/18 06:34 Dose: 40 mg Tamsulosin HCl (Flomax) 0.4 mg PO 1830 [facility] Last Admin: 08/19/18 18:32 Dose: 0.4 mg Warfarin Sodium (Coumadin) 5 mg PO 1800 [facility]; Protocol Last Admin: 08/19/18 18:31 Dose: 5 mg - Labs Labs: PT 21.1 SECONDS (9.4-12.5) H 08/19/18 08:15 INR 1.87 08/19/18 08:15 - Constitutional Appears: Chronically Ill - Head Exam Head Exam: NORMAL INSPECTION - Respiratory Exam Respiratory Exam: Decreased Breath Sounds - Cardiovascular Exam Cardiovascular Exam: +S1, +S2 - GI/Abdominal Exam GI & Abdominal Exam: Soft. absent: Tenderness Assessment and Plan - Assessment and Plan (Free Text) Plan: Assessment S/P Systemic inflammatory response syndrome, with fevers, consider sepsis due to left sided HCAP, need to rule out meningoencephalitis, S/P treatment with antibiotics CAD S/P CABG S/P PCI HTN history of TIA BPH ascending aortic aneurysm S/P repair S/P aortic valve replacement Crohn's disease dyslipidemia history of spinal laminectomy Plan new onset low grade fever - will get repeat blood and urine cx and start Vancomycin and Merrem for now and will also get rapid flu test will monitor clinically
[2018-08-20] MEDS: Vancomycin 1gm in NS 250ml 1 GM/250 ML BAG IVPB SCH (19:04)
[2018-08-20] MEDS: Meropenem IV 1 gm in NS 1 GM/50 ML BAG IVPB SCH (21:58)
--- NOTE | 2018-08-20 23:14 | PN ---
DATE: 08/20/2018 SUBJECTIVE: The patient was seen and examined by me. I did review the note of the medical translator and I do agree with it. The patient has episodes of delirium. He did fairly well yesterday according to the daughter who is at the bedside. The patient was receiving antibiotics for sepsis that was unknown etiology. The patient is currently off of antibiotics. He did not have any nausea or vomiting. He has coronary artery disease and continued on his antiplatelet therapy. The patient has hypertension and blood pressure is controlled. He is on Coumadin as well as Lovenox until his Coumadin is therapeutic. He is working with physical therapy. He is on his Imodium for diarrhea as needed. He is on Lipitor for dyslipidemia. The patient is on methylamine for his Crohn's disease. He is receiving vancomycin, but today is going to be his last day of antibiotics. Reji Marie MD
[2018-08-21] MEDS: Vancomycin 1gm in NS 250ml 1 GM/250 ML BAG IVPB SCH ×2 (05:36→17:27)
[2018-08-21] MEDS: Pantoprazole 40 mg EC Tab PO SCH (05:36)
[2018-08-21] MEDS: Meropenem IV 1 gm in NS 1 GM/50 ML BAG IVPB SCH ×3 (05:36→21:45)
[2018-08-21] MEDS: Enoxaparin 60 mg Syringe SC SCH (07:43)
[2018-08-21] MEDS: Mesalamine ER Cap 500 MG PO SCH ×2 (09:44→17:27)
[2018-08-21 09:48] LABS: HEMOGLOBIN 12.7 g/dL (14.0-18.0); MEAN CELL VOLUME 94.5 fl (80.0-105.0); MEAN CORPUSCULAR HEMOGLOBIN 30.3 pg (25.0-35.0); MEAN CORPUSCULAR HGB CONC 32.1 g/dl (31.0-37.0); MEAN PLATELET VOLUME 9.6 fl (7.0-11.0); RBC 4.19 10^6/uL (3.5-6.1); WHITE BLOOD COUNT 13.3 10^3/uL (4.5-11.0)
[2018-08-21 09:50] LABS: INR 2.35; PROTHROMBIN TIME 26.6 SECONDS (9.4-12.5)
--- NOTE | 2018-08-21 10:23 | CP.PCM.PN ---
<Gerardo Arce - Last Filed: 08/21/18 10:23> Subjective - Date & Time of Evaluation Date of Evaluation: 08/21/18 Time of Evaluation: 07:10 - Subjective Subjective: Medicine progress note: Patient seen and examined at bedside. No acute events overnight. Patient states that he did not do any PT yesterday as his BP was high 177/83. He did however sit on the chair. He also had a headache which was resolved with Tylenol. No other complaints. 12 point ROS performed and negative other than stated above Objective - Vital Signs/Intake and Output Vital Signs (last 24 hours): Temp Pulse Resp BP Pulse Ox 98.5 F 84 18 117/68 97 08/21/18 02:00 08/21/18 09:44 08/20/18 16:00 08/21/18 09:44 08/20/18 16:00 - Medications Medications: Current Medications Acetaminophen (Tylenol 325mg Tab) 650 mg PO Q6H PRN PRN Reason: Fever >100.4 F Last Admin: 08/20/18 16:45 Dose: 650 mg Acetaminophen (Tylenol 325mg Tab) 650 mg PO Q4H PRN; Protocol PRN Reason: Pain, moderate (4-7) Last Admin: 08/20/18 12:33 Dose: 650 mg Atorvastatin Calcium (Lipitor) 20 mg PO DIN [facility]; Protocol Last Admin: 08/20/18 18:24 Dose: 20 mg Carvedilol (Coreg) 6.25 mg PO BID [facility]; Protocol Last Admin: 08/21/18 09:44 Dose: 6.25 mg Clopidogrel Bisulfate (Plavix) 75 mg PO DAILY [facility]; Protocol Last Admin: 08/21/18 09:44 Dose: 75 mg Enoxaparin Sodium (Lovenox) 60 mg SC Q12H [facility]; Protocol Last Admin: 08/21/18 07:43 Dose: 60 mg Finasteride (Proscar) 5 mg PO DAILY [facility]; Protocol Last Admin: 08/21/18 09:44 Dose: 5 mg Meropenem (Merrem Iv 1 Gm Premix) 1 gm in 50 mls @ 12.5 mls/hr IVPB 0600,1400,2200 [facility]; Protocol Stop: 08/27/18 22:01 Last Admin: 08/21/18 05:36 Dose: 12.5 mls/hr Vancomycin HCl (Vancomycin 1gm) 1 gm in 250 mls @ 167 mls/hr IVPB 0600,1800 [facility]; Protocol Stop: 08/27/18 18:01 Last Admin: 08/21/18 05:36 Dose: 167 mls/hr Loperamide HCl (Imodium) 2 mg PO QID PRN; Protocol PRN Reason: Diarrhea Last Admin: 08/20/18 08:30 Dose: 2 mg Mesalamine (Pentasa) 1,500 mg PO BID [facility]; Protocol Last Admin: 08/21/18 09:44 Dose: 1,500 mg Pantoprazole Sodium (Protonix Ec Tab) 40 mg PO 0630 [facility]; Protocol Last Admin: 08/21/18 05:36 Dose: 40 mg Tamsulosin HCl (Flomax) 0.4 mg PO 1830 [facility] Last Admin: 08/20/18 18:25 Dose: 0.4 mg Warfarin Sodium (Coumadin) 5 mg PO 1800 [facility]; Protocol Last Admin: 08/19/18 18:31 Dose: 5 mg - Labs Labs: 08/21/18 09:25 PT 26.6 SECONDS (9.4-12.5) H 08/21/18 09:25 INR 2.35 08/21/18 09:25 - Constitutional Appears: No Acute Distress - Head Exam Head Exam: ATRAUMATIC, NORMOCEPHALIC - Eye Exam Eye Exam: EOMI - ENT Exam ENT Exam: Mucous Membranes Moist - Respiratory Exam Respiratory Exam: Clear to Ausculation Bilateral. absent: Rales, Wheezes - Cardiovascular Exam Cardiovascular Exam: REGULAR RHYTHM, +S1, +S2 - GI/Abdominal Exam GI & Abdominal Exam: Soft. absent: Tenderness - Extremities Exam Extremities Exam: absent: Calf Tenderness, Pedal Edema - Neurological Exam Neurological Exam: Alert, Awake, Oriented x3 - Psychiatric Exam Psychiatric exam: Normal Mood - Skin Skin Exam: Dry, Warm Assessment and Plan - Assessment and Plan (Free Text) Assessment: 1. AMS 2/2 TIA vs Delirium, resolved 2. Sepsis likely 2/2 HCAP r/o meningoencephalitis, sepsis resolved 3. headaches, acute 4. nausea vomiting, resolved 5. CAD with CABG and stent placement 6. Hypertension 7. BPH 8. History of TIA 9. Crohn's disease 10. hyperlipidemia Continua physical therapy in the TCU. Patient with low grade fever 100.1, ID started the patient on Vanc and Ceci, awaiting cultures. Rapid flu neg. Follow- up further neurology recommendations, patient was given naproxen for acute headache. Patient also with episode of elevated blood pressure yesterday 177/83, resolved with clonidine, currently normotensive, we will d/c amlodipine and cont to monitor. Neuro and ID recommended a spinal lumbar puncture tap however the patient's daughter refused. Patient with a history of TIAs therefore we will continue Plavix for stroke prevention. History of valve replacement and therefore on Coumadin, INR 2.35, d/c Lovenox 60 Q12H, and resume coumadin 3mg daily. Continue to monitor INR daily. We will continue with Lipitor for his hyperlipidemia, continue with Coreg for his hypertension, continue with mesalamine for his Crohn's disease. Cont with Flomax and Finesteride for his BPH . GI/DVT ppx. Dysphagia modified diet. We will continue to monitor for any changes. Case and plan was reviewed and discussed with Dr. Marie <Reji Marie S - Last Filed: 08/21/18 20:14> Objective - Vital Signs/Intake and Output Vital Signs (last 24 hours): Temp Pulse Resp BP Pulse Ox 98.3 F 74 18 131/66 96 08/21/18 10:00 08/21/18 17:26 08/21/18 10:00 08/21/18 17:26 08/21/18 10:00 - Medications Medications: Current Medications Acetaminophen (Tylenol 325mg Tab) 650 mg PO Q6H PRN PRN Reason: Fever >100.4 F Last Admin: 08/20/18 16:45 Dose: 650 mg Acetaminophen (Tylenol 325mg Tab) 650 mg PO Q4H PRN; Protocol PRN Reason: Pain, moderate (4-7) Last Admin: 08/20/18 12:33 Dose: 650 mg Atorvastatin Calcium (Lipitor) 20 mg PO DIN [facility]; Protocol Last Admin: 08/21/18 17:26 Dose: 20 mg Carvedilol (Coreg) 6.25 mg PO BID [facility]; Protocol Last Admin: 08/21/18 17:26 Dose: 6.25 mg Clopidogrel Bisulfate (Plavix) 75 mg PO DAILY [facility]; Protocol Last Admin: 08/21/18 09:44 Dose: 75 mg Finasteride (Proscar) 5 mg PO DAILY [facility]; Protocol Last Admin: 08/21/18 09:44 Dose: 5 mg Meropenem (Merrem Iv 1 Gm Premix) 1 gm in 50 mls @ 12.5 mls/hr IVPB 0600,1400,2200 [facility]; Protocol Stop: 08/27/18 22:01 Last Admin: 08/21/18 13:49 Dose: 12.5 mls/hr Vancomycin HCl (Vancomycin 1gm) 1 gm in 250 mls @ 167 mls/hr IVPB 0600,1800 [facility]; Protocol Stop: 08/27/18 18:01 Last Admin: 08/21/18 17:27 Dose: 167 mls/hr Loperamide HCl (Imodium) 2 mg PO QID PRN; Protocol PRN Reason: Diarrhea Last Admin: 08/20/18 08:30 Dose: 2 mg Mesalamine (Pentasa) 1,500 mg PO BID [facility]; Protocol Last Admin: 08/21/18 17:27 Dose: 1,500 mg Pantoprazole Sodium (Protonix Ec Tab) 40 mg PO 0630 [facility]; Protocol Last Admin: 08/21/18 05:36 Dose: 40 mg Tamsulosin HCl (Flomax) 0.4 mg PO 1830 [facility] Last Admin: 08/21/18 17:34 Dose: 0.4 mg Warfarin Sodium (Coumadin) 3 mg PO 1800 [facility]; Protocol Last Admin: 08/21/18 17:27 Dose: 3 mg - Labs Labs: 08/21/18 09:25 08/21/18 11:00 PT 26.6 SECONDS (9.4-12.5) H 08/21/18 09:25 INR 2.35 08/21/18 09:25 Assessment and Plan - Assessment and Plan (Free Text) Assessment: Pt seen and examined by me. I have reviewed the note of the medical director/head team physician and I agree with it. I have discussed the assessment and plan with the resident. I have reviewed the medications and the last labs.
[2018-08-21 11:26] LABS: ALBUMIN 3.5 g/dL (3.0-4.8); ALT/SGPT 25 U/L (7-56); AST/SGOT 31 U/L (17-59); BLOOD UREA NITROGEN 21 mg/dL (7-21); CALCIUM 9.7 mg/dL (8.4-10.5); GFR NON-AFRICAN AMERICAN > 60
--- NOTE | 2018-08-21 14:48 | CP.PCM.PN ---
Subjective - Date & Time of Evaluation Date of Evaluation: 08/21/18 Time of Evaluation: 10:50 - Subjective Subjective: Patient is comfortable on a chair, no fevers this morning, but as per PT he has trouble focusing on tasks and instructions. Objective - Vital Signs/Intake and Output Vital Signs (last 24 hours): Temp Pulse Resp BP Pulse Ox 100.1 F H 74 18 172/82 H 97 08/20/18 16:45 08/20/18 17:00 08/20/18 16:00 08/20/18 17:00 08/20/18 16:00 - Medications Medications: Current Medications Acetaminophen (Tylenol 325mg Tab) 650 mg PO Q6H PRN PRN Reason: Fever >100.4 F Last Admin: 08/20/18 16:45 Dose: 650 mg Acetaminophen (Tylenol 325mg Tab) 650 mg PO Q4H PRN; Protocol PRN Reason: Pain, moderate (4-7) Last Admin: 08/20/18 12:33 Dose: 650 mg Amlodipine Besylate (Norvasc) 2.5 mg PO DAILY [facility] Last Admin: 08/20/18 14:51 Dose: 2.5 mg Atorvastatin Calcium (Lipitor) 20 mg PO DIN [facility]; Protocol Last Admin: 08/19/18 18:32 Dose: 20 mg Carvedilol (Coreg) 6.25 mg PO BID [facility]; Protocol Last Admin: 08/20/18 11:07 Dose: 6.25 mg Clopidogrel Bisulfate (Plavix) 75 mg PO DAILY [facility]; Protocol Last Admin: 08/20/18 10:39 Dose: 75 mg Enoxaparin Sodium (Lovenox) 60 mg SC Q12H [facility]; Protocol Last Admin: 08/20/18 08:43 Dose: 60 mg Finasteride (Proscar) 5 mg PO DAILY [facility]; Protocol Last Admin: 08/20/18 10:39 Dose: 5 mg Meropenem (Merrem Iv 1 Gm Premix) 1 gm in 50 mls @ 12.5 mls/hr IVPB 0600,1400,2200 [facility]; Protocol Stop: 08/27/18 22:01 Vancomycin HCl (Vancomycin 1gm) 1 gm in 250 mls @ 167 mls/hr IVPB 0600,1800 [facility]; Protocol Stop: 08/27/18 18:01 Loperamide HCl (Imodium) 2 mg PO QID PRN; Protocol PRN Reason: Diarrhea Last Admin: 08/20/18 08:30 Dose: 2 mg Mesalamine (Pentasa) 1,500 mg PO BID [facility]; Protocol Last Admin: 08/20/18 10:39 Dose: 1,500 mg Pantoprazole Sodium (Protonix Ec Tab) 40 mg PO 0630 [facility]; Protocol Last Admin: 08/20/18 06:11 Dose: 40 mg Tamsulosin HCl (Flomax) 0.4 mg PO 1830 [facility] Last Admin: 08/19/18 18:32 Dose: 0.4 mg Warfarin Sodium (Coumadin) 5 mg PO 1800 [facility]; Protocol Last Admin: 08/19/18 18:31 Dose: 5 mg - Labs Labs: PT 17.1 SECONDS (9.4-12.5) H 08/20/18 07:00 INR 1.51 08/20/18 07:00 - Constitutional Appears: Chronically Ill - Head Exam Head Exam: NORMAL INSPECTION - Respiratory Exam Respiratory Exam: Decreased Breath Sounds - Cardiovascular Exam Cardiovascular Exam: +S1, +S2 - GI/Abdominal Exam GI & Abdominal Exam: Soft. absent: Tenderness Assessment and Plan - Assessment and Plan (Free Text) Plan: Assessment new onset SIRS, R/O new onset sepsis S/P Systemic inflammatory response syndrome, with fevers, consider sepsis due to left sided HCAP, need to rule out meningoencephalitis, S/P treatment with antibiotics CAD S/P CABG S/P PCI HTN history of TIA BPH ascending aortic aneurysm S/P repair S/P aortic valve replacement Crohn's disease dyslipidemia history of spinal laminectomy Plan follow up repeat blood and urine cx and continue Vancomycin and Merrem day 2 for now; rapid flu test is negative will continue to monitor clinically discussed with Dr. Marie's team - would suggest Neuro re-evaluation for decline in cognitive abilities and difficulty concentrating
--- NOTE | 2018-08-21 16:33 | CP.PCM.PN ---
Subjective - Date & Time of Evaluation Date of Evaluation: 08/21/18 Time of Evaluation: 16:04 - Subjective Subjective: NEURO FOLLOW UP. DATE: 08/21/2018 CHIEF COMPLAINT: History of delirium. SUBJECTIVE: HEADACHE IS BETTER TODAY. OCCASIONAL DELIRIUM SPELLS. TALKED TO DAUGHTER IN DETAIL. PAST MEDICAL HISTORY: As above. PAST SURGICAL HISTORY: CABG. ALLERGIES: PNEUMOCOCCAL VACCINE, ANESTHETICS FAMILY HISTORY: Noncontributory. SOCIAL HISTORY: Former smoker, smoked over 30 years ago. Denies any illicit drug use, smoking, or EtOH abuse. REVIEW OF SYSTEMS: Fourteen-point review of systems is negative except as per the HPI. LABORATORY DATA: REVIEWED VIA CHART PHYSICAL EXAMINATION GENERAL: The patient is sitting up in bed and in no acute distress. VITAL SIGNS: REVIEWED VIA NURSE CHART. HEENT: Atraumatic and normocephalic. PERRLA. Extraocular muscles are intact. NECK: Supple, no JVD and no adenopathy noted. LUNGS: Clear to auscultation. No adventitious sounds. HEART: S1 and S2. Normal rate and rhythm. No murmurs, rubs or gallops. ABDOMEN: Soft, nontender, and nondistended. Bowel sounds are present. EXTREMITIES: No clubbing, no cyanosis. Peripheral pulses 2+ felt bilaterally. NEUROLOGIC: The patient is alert, oriented to person, place, month and year. Speech is fluent without any errors. Cranial nerves II through XII are intact. Motor exam; moves all extremities equally. Toes are downgoing bilaterally. Sensory; light touch and pinprick, proprioception, and vibration are intact. DTRs are 2+ throughout. Coordination; [id number] is intact. No dysmetria noted. Gait is deferred for now. IMPRESSION: Change in mental status secondary to underlying acute delirium, superimposed underlying chronic medical condition with a questionable transient ischemic attack. OCCASIONAL STARING SPELLS COULD BE RELATED TO HYOACTIVE DELIRIUM. PLAN: At this time, I recommend, 1. Plavix 75 mg and coumadin. for stroke prevention. 2. Lipitor 20 mg at bedtime for underlying hyperlipidemia. 3. Monitor electrolytes currently. 4. Naproxen p.r.n. for acute onset of headache. 5. PT/OT eval for current deconditioning and delirium precautions. 6. EEG to assess brain waves. Thank you Rodney Gentile MD Objective - Vital Signs/Intake and Output Vital Signs (last 24 hours): Temp Pulse Resp BP Pulse Ox 98.3 F 84 18 117/68 96 08/21/18 10:00 08/21/18 10:00 08/21/18 10:00 08/21/18 10:00 08/21/18 10:00 - Medications Medications: Current Medications Acetaminophen (Tylenol 325mg Tab) 650 mg PO Q6H PRN PRN Reason: Fever >100.4 F Last Admin: 08/20/18 16:45 Dose: 650 mg Acetaminophen (Tylenol 325mg Tab) 650 mg PO Q4H PRN; Protocol PRN Reason: Pain, moderate (4-7) Last Admin: 08/20/18 12:33 Dose: 650 mg Atorvastatin Calcium (Lipitor) 20 mg PO DIN [facility]; Protocol Last Admin: 08/20/18 18:24 Dose: 20 mg Carvedilol (Coreg) 6.25 mg PO BID [facility]; Protocol Last Admin: 08/21/18 09:44 Dose: 6.25 mg Clopidogrel Bisulfate (Plavix) 75 mg PO DAILY [facility]; Protocol Last Admin: 08/21/18 09:44 Dose: 75 mg Finasteride (Proscar) 5 mg PO DAILY [facility]; Protocol Last Admin: 08/21/18 09:44 Dose: 5 mg Meropenem (Merrem Iv 1 Gm Premix) 1 gm in 50 mls @ 12.5 mls/hr IVPB 0600,1400,2200 [facility]; Protocol Stop: 08/27/18 22:01 Last Admin: 08/21/18 13:49 Dose: 12.5 mls/hr Vancomycin HCl (Vancomycin 1gm) 1 gm in 250 mls @ 167 mls/hr IVPB 0600,1800 [facility]; Protocol Stop: 08/27/18 18:01 Last Admin: 08/21/18 05:36 Dose: 167 mls/hr Loperamide HCl (Imodium) 2 mg PO QID PRN; Protocol PRN Reason: Diarrhea Last Admin: 08/20/18 08:30 Dose: 2 mg Mesalamine (Pentasa) 1,500 mg PO BID [facility]; Protocol Last Admin: 08/21/18 09:44 Dose: 1,500 mg Pantoprazole Sodium (Protonix Ec Tab) 40 mg PO 0630 [facility]; Protocol Last Admin: 08/21/18 05:36 Dose: 40 mg Tamsulosin HCl (Flomax) 0.4 mg PO 1830 [facility] Last Admin: 08/20/18 18:25 Dose: 0.4 mg Warfarin Sodium (Coumadin) 3 mg PO 1800 [facility]; Protocol - Labs Labs: 08/21/18 09:25 08/21/18 11:00 PT 26.6 SECONDS (9.4-12.5) H 08/21/18 09:25 INR 2.35 08/21/18 09:25
--- NOTE | 2018-08-21 21:16 | PN ---
DATE: 08/21/2018 SUBJECTIVE: The patient was seen and examined. I do agree with the note of the medical health researcher. I have in the assessment and plan of care. The patient has delirium. He had improved. The patient did have a low grade fever yesterday. He was started back on antibiotics. The patient is on vancomycin and meropenem. He does have risk of having hospital-acquired infections. He does have episodes of headaches. He has a history of coronary disease. He is currently on Lovenox, because his INR was not therapeutic Lovenox will be discontinued. He is on Lipitor for dyslipidemia. He is receiving Coreg for his coronary disease and hypertension. He is on mesalamine for his Crohn disease. The patient is on Flomax for his BPH. I did have a long discussion with the patient's daughter to give an update on the patient's diagnosis and plan of care. I did answer her questions. She continues to be concerned about her father's health. I did advise her that he may not improve much as he has not had significant improvement in the last 7 days. His fevers that he initially came in with have improved. Reji Marie MD
[2018-08-22] MEDS: Meropenem IV 1 gm in NS 1 GM/50 ML BAG IVPB SCH ×3 (05:05→21:08)
[2018-08-22] MEDS: Vancomycin 1gm in NS 250ml 1 GM/250 ML BAG IVPB SCH ×2 (05:05→18:02)
[2018-08-22] MEDS: Pantoprazole 40 mg EC Tab PO SCH (05:36)
[2018-08-22 08:11] LABS: INR 2.08; PROTHROMBIN TIME 23.5 SECONDS (9.4-12.5)
[2018-08-22 09:53] LABS: BASO # 0.02 K/mm3 (0.0-2.0); BASO % 0.2 % (0.0-3.0); EOS # 0.3 (0.0-0.7); EOS % 2.3 % (1.5-5.0); HEMOGLOBIN 12.1 g/dL (14.0-18.0); LYMPH # 2.4 (1.2-3.4); LYMPH % 19.8 % (22.0-35.0); MEAN CELL VOLUME 94.2 fl (80.0-105.0); MEAN CORPUSCULAR HEMOGLOBIN 30.3 pg (25.0-35.0); MEAN CORPUSCULAR HGB CONC 32.2 g/dl (31.0-37.0); MONO # 1.1 (0.1-0.6); MONO % 9.3 % (1.0-6.0); RBC 3.99 10^6/uL (3.5-6.1); RED CELL DISTRIBUTION WIDTH 14.2 % (11.5-14.5); WHITE BLOOD COUNT 11.9 10^3/uL (4.5-11.0)
[2018-08-22] MEDS: Mesalamine ER Cap 500 MG PO SCH ×2 (11:00→17:58)
--- NOTE | 2018-08-22 11:05 | CP.PCM.PN ---
<Gerardo Arce - Last Filed: 08/22/18 11:05> Subjective - Date & Time of Evaluation Date of Evaluation: 08/22/18 Time of Evaluation: 07:40 - Subjective Subjective: Medicine progress note: Patient seen and examined at bedside. No acute events overnight. Daughter is at bedside. Patient did complete his physical therapy yesterday however was very weak. As per the daughter patient at times still gets confused. No other compl aints 12 point ROS performed and negative other than stated above Objective - Vital Signs/Intake and Output Vital Signs (last 24 hours): Temp Pulse Resp BP Pulse Ox 98.3 F 74 18 131/66 96 08/21/18 10:00 08/21/18 17:26 08/21/18 10:00 08/21/18 17:26 08/21/18 10:00 - Medications Medications: Current Medications Acetaminophen (Tylenol 325mg Tab) 650 mg PO Q6H PRN PRN Reason: Fever >100.4 F Last Admin: 08/20/18 16:45 Dose: 650 mg Acetaminophen (Tylenol 325mg Tab) 650 mg PO Q4H PRN; Protocol PRN Reason: Pain, moderate (4-7) Last Admin: 08/20/18 12:33 Dose: 650 mg Atorvastatin Calcium (Lipitor) 20 mg PO DIN [facility]; Protocol Last Admin: 08/21/18 17:26 Dose: 20 mg Carvedilol (Coreg) 6.25 mg PO BID [facility]; Protocol Last Admin: 08/21/18 17:26 Dose: 6.25 mg Clopidogrel Bisulfate (Plavix) 75 mg PO DAILY [facility]; Protocol Last Admin: 08/21/18 09:44 Dose: 75 mg Finasteride (Proscar) 5 mg PO DAILY [facility]; Protocol Last Admin: 08/21/18 09:44 Dose: 5 mg Meropenem (Merrem Iv 1 Gm Premix) 1 gm in 50 mls @ 12.5 mls/hr IVPB 0600,1400,2200 [facility]; Protocol Stop: 08/27/18 22:01 Last Admin: 08/22/18 05:05 Dose: 12.5 mls/hr Vancomycin HCl (Vancomycin 1gm) 1 gm in 250 mls @ 167 mls/hr IVPB 0600,1800 [facility]; Protocol Stop: 08/27/18 18:01 Last Admin: 08/22/18 05:05 Dose: 167 mls/hr Loperamide HCl (Imodium) 2 mg PO QID PRN; Protocol PRN Reason: Diarrhea Last Admin: 08/20/18 08:30 Dose: 2 mg Mesalamine (Pentasa) 1,500 mg PO BID [facility]; Protocol Last Admin: 08/21/18 17:27 Dose: 1,500 mg Pantoprazole Sodium (Protonix Ec Tab) 40 mg PO 0630 [facility]; Protocol Last Admin: 08/22/18 05:36 Dose: 40 mg Tamsulosin HCl (Flomax) 0.4 mg PO 1830 [facility] Last Admin: 08/21/18 17:34 Dose: 0.4 mg Warfarin Sodium (Coumadin) 3 mg PO 1800 [facility]; Protocol Last Admin: 08/21/18 17:27 Dose: 3 mg - Labs Labs: 08/22/18 09:40 08/21/18 11:00 PT 23.5 SECONDS (9.4-12.5) H 08/22/18 07:50 INR 2.08 08/22/18 07:50 - Constitutional Appears: No Acute Distress - Head Exam Head Exam: ATRAUMATIC, NORMOCEPHALIC - Eye Exam Eye Exam: EOMI - ENT Exam ENT Exam: Mucous Membranes Moist - Respiratory Exam Respiratory Exam: Clear to Ausculation Bilateral. absent: Rales, Wheezes - Cardiovascular Exam Cardiovascular Exam: REGULAR RHYTHM, +S1, +S2 - GI/Abdominal Exam GI & Abdominal Exam: Soft. absent: Tenderness - Extremities Exam Extremities Exam: absent: Calf Tenderness, Pedal Edema - Neurological Exam Neurological Exam: Alert, Awake, Oriented x3 - Psychiatric Exam Psychiatric exam: Normal Mood - Skin Skin Exam: Dry, Warm Assessment and Plan - Assessment and Plan (Free Text) Assessment: 1. AMS 2/2 TIA vs Delirium, resolved 2. Sepsis likely 2/2 HCAP r/o meningoencephalitis, sepsis resolved 3. headaches, resolved 4. nausea vomiting, resolved 5. CAD with CABG and stent placement 6. Hypertension 7. BPH 8. History of TIA 9. Crohn's disease 10. hyperlipidemia Continue physical therapy in the TCU. No more episodes of fever. As per ID cont Vanc and Ceci, awaiting cultures. Initial cultures neg. Follow-up further neurology recommendations, patient was given naproxen for acute headache, and recommended EEG, ordered. Elevated MANOHAR resolved, currently normotensive, cont to monitor. Neuro and ID recommended a spinal lumbar puncture tap however the p latoya's daughter refused. Patient with a history of TIAs therefore we will continue Plavix for stroke prevention. History of valve replacement and therefore on Coumadin, INR 2 today cont coumadin 3mg daily. Continue to monitor INR daily. We will continue with Lipitor for his hyperlipidemia, continue with Coreg for his hypertension, continue with mesalamine for his Crohn's disease. Cont with Flomax and Finesteride for his BPH. GI/DVT ppx. Dysphagia modified diet. We will continue to monitor for any changes. Case and plan was reviewed and discussed with Dr. Marie <Reji Marie - Last Filed: 08/22/18 16:39> Objective - Vital Signs/Intake and Output Vital Signs (last 24 hours): Temp Pulse Resp BP Pulse Ox 98.3 F 74 18 116/67 96 08/21/18 10:00 08/22/18 11:00 08/21/18 10:00 08/22/18 11:00 08/21/18 10:00 - Medications Medications: Current Medications Acetaminophen (Tylenol 325mg Tab) 650 mg PO Q6H PRN PRN Reason: Fever >100.4 F Last Admin: 08/20/18 16:45 Dose: 650 mg Acetaminophen (Tylenol 325mg Tab) 650 mg PO Q4H PRN; Protocol PRN Reason: Pain, moderate (4-7) Last Admin: 08/20/18 12:33 Dose: 650 mg Atorvastatin Calcium (Lipitor) 20 mg PO DIN [facility]; Protocol Last Admin: 08/21/18 17:26 Dose: 20 mg Carvedilol (Coreg) 6.25 mg PO BID [facility]; Protocol Last Admin: 08/22/18 11:00 Dose: 6.25 mg Clopidogrel Bisulfate (Plavix) 75 mg PO DAILY [facility]; Protocol Last Admin: 08/22/18 11:00 Dose: 75 mg Finasteride (Proscar) 5 mg PO DAILY [facility]; Protocol Last Admin: 08/22/18 11:00 Dose: 5 mg Meropenem (Merrem Iv 1 Gm Premix) 1 gm in 50 mls @ 12.5 mls/hr IVPB 0600,1400,2200 [facility]; Protocol Stop: 08/27/18 22:01 Last Admin: 08/22/18 13:42 Dose: 12.5 mls/hr Vancomycin HCl (Vancomycin 1gm) 1 gm in 250 mls @ 167 mls/hr IVPB 0600,1800 [facility]; Protocol Stop: 08/27/18 18:01 Last Admin: 08/22/18 05:05 Dose: 167 mls/hr Loperamide HCl (Imodium) 2 mg PO QID PRN; Protocol PRN Reason: Diarrhea Last Admin: 08/20/18 08:30 Dose: 2 mg Mesalamine (Pentasa) 1,500 mg PO BID [facility]; Protocol Last Admin: 08/22/18 11:00 Dose: 1,500 mg Pantoprazole Sodium (Protonix Ec Tab) 40 mg PO 0630 [facility]; Protocol Last Admin: 08/22/18 05:36 Dose: 40 mg Tamsulosin HCl (Flomax) 0.4 mg PO 1830 [facility] Last Admin: 08/21/18 17:34 Dose: 0.4 mg Warfarin Sodium (Coumadin) 3 mg PO 1800 [facility]; Protocol Last Admin: 08/21/18 17:27 Dose: 3 mg - Labs Labs: 08/22/18 09:40 08/21/18 11:00 PT 23.5 SECONDS (9.4-12.5) H 08/22/18 07:50 INR 2.08 08/22/18 07:50 Assessment and Plan - Assessment and Plan (Free Text) Assessment: Pt seen and examined by me. I have reviewed the note of the medical office technology instructor and I agree with it. I have discussed the assessment and plan with the resident. I have reviewed the medications and the last labs.
--- NOTE | 2018-08-22 14:03 | CP.PCM.PN ---
Subjective - Date & Time of Evaluation Date of Evaluation: 08/22/18 Time of Evaluation: 11:30 - Subjective Subjective: Doing his physical therapy, still has bouts of confusion but no fevers, has more energy today, more awake today. Objective - Vital Signs/Intake and Output Vital Signs (last 24 hours): Temp Pulse Resp BP Pulse Ox 98.3 F 84 18 117/68 96 08/21/18 10:00 08/21/18 10:00 08/21/18 10:00 08/21/18 10:00 08/21/18 10:00 - Medications Medications: Current Medications Acetaminophen (Tylenol 325mg Tab) 650 mg PO Q6H PRN PRN Reason: Fever >100.4 F Last Admin: 08/20/18 16:45 Dose: 650 mg Acetaminophen (Tylenol 325mg Tab) 650 mg PO Q4H PRN; Protocol PRN Reason: Pain, moderate (4-7) Last Admin: 08/20/18 12:33 Dose: 650 mg Atorvastatin Calcium (Lipitor) 20 mg PO DIN [facility]; Protocol Last Admin: 08/20/18 18:24 Dose: 20 mg Carvedilol (Coreg) 6.25 mg PO BID [facility]; Protocol Last Admin: 08/21/18 09:44 Dose: 6.25 mg Clopidogrel Bisulfate (Plavix) 75 mg PO DAILY [facility]; Protocol Last Admin: 08/21/18 09:44 Dose: 75 mg Finasteride (Proscar) 5 mg PO DAILY [facility]; Protocol Last Admin: 08/21/18 09:44 Dose: 5 mg Meropenem (Merrem Iv 1 Gm Premix) 1 gm in 50 mls @ 12.5 mls/hr IVPB 0600,1400,2200 [facility]; Protocol Stop: 08/27/18 22:01 Last Admin: 08/21/18 13:49 Dose: 12.5 mls/hr Vancomycin HCl (Vancomycin 1gm) 1 gm in 250 mls @ 167 mls/hr IVPB 0600,1800 [facility]; Protocol Stop: 08/27/18 18:01 Last Admin: 08/21/18 05:36 Dose: 167 mls/hr Loperamide HCl (Imodium) 2 mg PO QID PRN; Protocol PRN Reason: Diarrhea Last Admin: 08/20/18 08:30 Dose: 2 mg Mesalamine (Pentasa) 1,500 mg PO BID [facility]; Protocol Last Admin: 08/21/18 09:44 Dose: 1,500 mg Pantoprazole Sodium (Protonix Ec Tab) 40 mg PO 0630 [facility]; Protocol Last Admin: 08/21/18 05:36 Dose: 40 mg Tamsulosin HCl (Flomax) 0.4 mg PO 1830 [facility] Last Admin: 08/20/18 18:25 Dose: 0.4 mg Warfarin Sodium (Coumadin) 3 mg PO 1800 [facility]; Protocol - Labs Labs: 08/21/18 09:25 08/21/18 11:00 PT 26.6 SECONDS (9.4-12.5) H 08/21/18 09:25 INR 2.35 08/21/18 09:25 - Constitutional Appears: Chronically Ill - Head Exam Head Exam: NORMAL INSPECTION - Respiratory Exam Respiratory Exam: Decreased Breath Sounds - Cardiovascular Exam Cardiovascular Exam: +S1, +S2 - GI/Abdominal Exam GI & Abdominal Exam: Soft. absent: Tenderness Assessment and Plan - Assessment and Plan (Free Text) Plan: Assessment new onset SIRS, R/O new onset sepsis S/P Systemic inflammatory response syndrome, with fevers, consider sepsis due to left sided HCAP, need to rule out meningoencephalitis, S/P treatment with antibiotics CAD S/P CABG S/P PCI HTN history of TIA BPH ascending aortic aneurysm S/P repair S/P aortic valve replacement Crohn's disease dyslipidemia history of spinal laminectomy Plan follow up final results of repeat blood and urine cx and continue Vancomycin and Merrem day 3 for now; rapid flu test is negative will continue to monitor clinically discussed with Dr. Marie's team - Neuro evaluation done, probably delirium - patient to get EEG
--- NOTE | 2018-08-22 19:50 | PN ---
DATE: 08/22/2018 SUBJECTIVE: The patient is awake and alert. He is able to follow commands. He denies any pain. Patient was seen and examined. I do agree with the note of the medical front desk coordinator. I was involved in the plan of care. The patient has a temperature of 98.3, but did have 99 temperature overnight. He is being followed by Infectious Disease. I do appreciate their input. I did review their note. This patient continues to have delirium. He has had 3 CT scans done and an MRI, that has not showed any acute abnormalities. He has multiple cultures that have been negative. The patient has a urine culture and blood culture that have been negative again. From 08/07/2018, he has had 3 blood cultures that have been negative and 2 urine cultures that have been negative. I did speak to the patient's daughter at the bedside to give her an update on the patient's diagnosis and a plan of care. She is thinking about taking her father to a subacute rehab near where she lives. I did speak with Licha, the social studies department chair and she has started working on trying to get authorization for discharge to a subacute facility in [place], [place] where the patient's daughter lives. The patient is currently on IV antibiotics. The patient has coronary artery disease, BPH. He is eating and working with Physical Therapy. He is going to continue with Imodium. He is going to continue with mesalamine for his Crohn's. He is on finasteride. The patient is on O2 as needed. Reji Marie MD
[2018-08-23] MEDS: Vancomycin 1gm in NS 250ml 1 GM/250 ML BAG IVPB SCH (05:13)
[2018-08-23] MEDS: Meropenem IV 1 gm in NS 1 GM/50 ML BAG IVPB SCH (05:14)
[2018-08-23 07:13] LABS: INR 1.83; PROTHROMBIN TIME 20.7 SECONDS (9.4-12.5)
[2018-08-23 07:23] LABS: BASO # 0.03 K/mm3 (0.0-2.0); BASO % 0.3 % (0.0-3.0); EOS # 0.3 (0.0-0.7); EOS % 2.9 % (1.5-5.0); HEMOGLOBIN 11.5 g/dL (14.0-18.0); LYMPH # 2.1 (1.2-3.4); LYMPH % 24.9 % (22.0-35.0); MEAN CELL VOLUME 92.9 fl (80.0-105.0); MEAN CORPUSCULAR HEMOGLOBIN 30.3 pg (25.0-35.0); MEAN CORPUSCULAR HGB CONC 32.7 g/dl (31.0-37.0); MEAN PLATELET VOLUME 9.6 fl (7.0-11.0); MONO # 0.8 (0.1-0.6); MONO % 9.1 % (1.0-6.0); RBC 3.79 10^6/uL (3.5-6.1); RED CELL DISTRIBUTION WIDTH 14.1 % (11.5-14.5); WHITE BLOOD COUNT 8.6 10^3/uL (4.5-11.0)
[2018-08-23 07:42] LABS: ALBUMIN 3.5 g/dL (3.0-4.8); ALT/SGPT 23 U/L (7-56); AST/SGOT 34 U/L (17-59); BLOOD UREA NITROGEN 15 mg/dL (7-21); CALCIUM 9.3 mg/dL (8.4-10.5); GFR NON-AFRICAN AMERICAN > 60
[2018-08-23] MEDS: Mesalamine ER Cap 500 MG PO SCH ×2 (09:57→18:39)
--- NOTE | 2018-08-23 12:52 | CP.PCM.PN ---
<Gerardo Arce - Last Filed: 08/23/18 12:52> Subjective - Date & Time of Evaluation Date of Evaluation: 08/23/18 Time of Evaluation: 07:20 - Subjective Subjective: Medicine progress note: Patient seen and examined at bedside. No acute events overnight. Patient still has some delirium. He completed PT yesterday. As per daughter still weak. No other complaints 12 point ROS performed and negative other than stated above Objective - Vital Signs/Intake and Output Vital Signs (last 24 hours): Temp Pulse Resp BP Pulse Ox 98.1 F 72 18 131/67 96 08/22/18 16:00 08/22/18 17:55 08/22/18 16:00 08/23/18 09:56 08/22/18 16:00 - Medications Medications: Current Medications Acetaminophen (Tylenol 325mg Tab) 650 mg PO Q6H PRN PRN Reason: Fever >100.4 F Last Admin: 08/23/18 11:38 Dose: 650 mg Acetaminophen (Tylenol 325mg Tab) 650 mg PO Q4H PRN; Protocol PRN Reason: Pain, moderate (4-7) Last Admin: 08/20/18 12:33 Dose: 650 mg Atorvastatin Calcium (Lipitor) 20 mg PO DIN [facility]; Protocol Last Admin: 08/22/18 17:57 Dose: 20 mg Carvedilol (Coreg) 6.25 mg PO BID [facility]; Protocol Last Admin: 08/23/18 09:56 Dose: 6.25 mg Clopidogrel Bisulfate (Plavix) 75 mg PO DAILY [facility]; Protocol Last Admin: 08/23/18 09:57 Dose: 75 mg Finasteride (Proscar) 5 mg PO DAILY [facility]; Protocol Last Admin: 08/23/18 09:57 Dose: 5 mg Meropenem (Merrem Iv 1 Gm Premix) 1 gm in 50 mls @ 12.5 mls/hr IVPB 0600,1400 ,2200 [facility]; Protocol Stop: 08/27/18 22:01 Last Admin: 08/23/18 05:14 Dose: 12.5 mls/hr Loperamide HCl (Imodium) 2 mg PO QID PRN; Protocol PRN Reason: Diarrhea Last Admin: 08/20/18 08:30 Dose: 2 mg Mesalamine (Pentasa) 1,500 mg PO BID [facility]; Protocol Last Admin: 08/23/18 09:57 Dose: 1,500 mg Pantoprazole Sodium (Protonix Ec Tab) 40 mg PO 0630 [facility]; Protocol Last Admin: 08/22/18 05:36 Dose: 40 mg Tamsulosin HCl (Flomax) 0.4 mg PO 1830 [facility] Last Admin: 08/22/18 17:56 Dose: 0.4 mg Warfarin Sodium (Coumadin) 3 mg PO 1800 [facility]; Protocol Last Admin: 08/22/18 17:55 Dose: 3 mg - Labs Labs: 08/23/18 06:00 08/23/18 06:00 PT 20.7 SECONDS (9.4-12.5) H 08/23/18 06:00 INR 1.83 08/23/18 06:00 - Constitutional Appears: No Acute Distress - Head Exam Head Exam: ATRAUMATIC, NORMOCEPHALIC - Eye Exam Eye Exam: EOMI - ENT Exam ENT Exam: Mucous Membranes Moist - Respiratory Exam Respiratory Exam: Clear to Ausculation Bilateral. absent: Wheezes - Cardiovascular Exam Cardiovascular Exam: REGULAR RHYTHM, RRR, +S1, +S2 - GI/Abdominal Exam GI & Abdominal Exam: Soft. absent: Tenderness - Extremities Exam Extremities Exam: absent: Calf Tenderness, Pedal Edema - Neurological Exam Neurological Exam: Alert, Awake, Oriented x3 - Psychiatric Exam Psychiatric exam: Normal Mood - Skin Skin Exam: Dry, Warm Assessment and Plan - Assessment and Plan (Free Text) Assessment: 1. AMS 2/2 TIA vs Delirium, resolved 2. Sepsis likely 2/2 HCAP r/o meningoencephalitis, sepsis resolved 3. headaches, resolved 4. nausea vomiting, resolved 5. CAD with CABG and stent placement 6. Hypertension 7. BPH 8. History of TIA 9. Crohn's disease 10. hyperlipidemia Continue physical therapy in the TCU. No fevers. As per ID cont Vanc and Ceci, awaiting cultures. Follow-up further neurology recommendations, patient was given naproxen for acute headache, and recommended EEG, which will be done as an outpatient. HTN resolved, cont with coreg. Patient with a history of TIAs therefore we will continue Plavix for stroke prevention. History of valve replacement and therefore on Coumadin, INR 1.83 today cont coumadin 3mg daily. Continue to monitor INR daily. We will continue with Lipitor for his hyperlipidemia, continue with Coreg for his hypertension, continue with mesalamine for his Crohn's disease. Cont with Flomax and Finesteride for his BPH. GI/DVT ppx. Dysphagia modified diet. Continue rehab in the TCU. We will continue to monitor for any changes. Case and plan was reviewed and discussed with Dr. Marie <Reji Marie S - Last Filed: 08/26/18 11:33> Objective - Vital Signs/Intake and Output Vital Signs (last 24 hours): Temp Pulse Resp BP Pulse Ox 98 F 62 18 111/60 95 08/24/18 06:00 08/24/18 06:00 08/24/18 06:00 08/24/18 11:40 08/24/18 06:00 - Labs Labs: 08/23/18 06:00 08/23/18 06:00 PT 18.2 SECONDS (9.4-12.5) H 08/24/18 07:15 INR 1.61 08/24/18 07:15 Assessment and Plan - Assessment and Plan (Free Text) Assessment: Pt seen and examined by me. This is a late entry. I have reviewed the note of the medical psychotherapist and I agree with it. I have discussed the assessment and plan with the resident. Pt with delirium that has improved. He is going to go to [facility] near her daughter. On Plavix for stroke. Pt is on Lipitor for dyslipidemia. Finesteride for BPH.
--- NOTE | 2018-08-23 13:07 | CP.PCM.PN ---
Subjective - Date & Time of Evaluation Date of Evaluation: 08/23/18 Time of Evaluation: 11:25 - Subjective Subjective: Patient is more awake today, no fevers, but as per daughter still has bouts of confusion, no diarrhea. Objective - Vital Signs/Intake and Output Vital Signs (last 24 hours): Temp Pulse Resp BP Pulse Ox 98.3 F 74 18 116/67 96 08/21/18 10:00 08/22/18 11:00 08/21/18 10:00 08/22/18 11:00 08/21/18 10:00 - Medications Medications: Current Medications Acetaminophen (Tylenol 325mg Tab) 650 mg PO Q6H PRN PRN Reason: Fever >100.4 F Last Admin: 08/20/18 16:45 Dose: 650 mg Acetaminophen (Tylenol 325mg Tab) 650 mg PO Q4H PRN; Protocol PRN Reason: Pain, moderate (4-7) Last Admin: 08/20/18 12:33 Dose: 650 mg Atorvastatin Calcium (Lipitor) 20 mg PO DIN [facility]; Protocol Last Admin: 08/21/18 17:26 Dose: 20 mg Carvedilol (Coreg) 6.25 mg PO BID [facility]; Protocol Last Admin: 08/22/18 11:00 Dose: 6.25 mg Clopidogrel Bisulfate (Plavix) 75 mg PO DAILY [facility]; Protocol Last Admin: 08/22/18 11:00 Dose: 75 mg Finasteride (Proscar) 5 mg PO DAILY [facility]; Protocol Last Admin: 08/22/18 11:00 Dose: 5 mg Meropenem (Merrem Iv 1 Gm Premix) 1 gm in 50 mls @ 12.5 mls/hr IVPB 0600,1400,2200 [facility]; Protocol Stop: 08/27/18 22:01 Last Admin: 08/22/18 13:42 Dose: 12.5 mls/hr Vancomycin HCl (Vancomycin 1gm) 1 gm in 250 mls @ 167 mls/hr IVPB 0600,1800 [facility]; Protocol Stop: 08/27/18 18:01 Last Admin: 08/22/18 05:05 Dose: 167 mls/hr Loperamide HCl (Imodium) 2 mg PO QID PRN; Protocol PRN Reason: Diarrhea Last Admin: 08/20/18 08:30 Dose: 2 mg Mesalamine (Pentasa) 1,500 mg PO BID [facility]; Protocol Last Admin: 08/22/18 11:00 Dose: 1,500 mg Pantoprazole Sodium (Protonix Ec Tab) 40 mg PO 0630 [facility]; Protocol Last Admin: 08/22/18 05:36 Dose: 40 mg Tamsulosin HCl (Flomax) 0.4 mg PO 1830 [facility] Last Admin: 08/21/18 17:34 Dose: 0.4 mg Warfarin Sodium (Coumadin) 3 mg PO 1800 [facility]; Protocol Last Admin: 08/21/18 17:27 Dose: 3 mg - Labs Labs: 08/22/18 09:40 08/21/18 11:00 PT 23.5 SECONDS (9.4-12.5) H 08/22/18 07:50 INR 2.08 08/22/18 07:50 - Constitutional Appears: Chronically Ill - Head Exam Head Exam: NORMAL INSPECTION - Neck Exam Neck Exam: absent: Meningismus - Respiratory Exam Respiratory Exam: Decreased Breath Sounds - Cardiovascular Exam Cardiovascular Exam: +S1, +S2 - GI/Abdominal Exam GI & Abdominal Exam: Soft. absent: Tenderness Assessment and Plan - Assessment and Plan (Free Text) Plan: Assessment S/P new onset SIRS, now evidence of sepsis S/P Systemic inflammatory response syndrome, with fevers, consider sepsis due to left sided HCAP, need to rule out meningoencephalitis, S/P treatment with antibiotics CAD S/P CABG S/P PCI HTN history of TIA BPH ascending aortic aneurysm S/P repair S/P aortic valve replacement Crohn's disease dyslipidemia history of spinal laminectomy Plan will d/c Vancomycin and Merrem and monitor clinically; rapid flu test is negative discussed with Dr. Marie
[2018-08-24] MEDS: Pantoprazole 40 mg EC Tab PO SCH (06:21)
[2018-08-24 07:44] LABS: INR 1.61; PROTHROMBIN TIME 18.2 SECONDS (9.4-12.5)
[2018-08-24 09:13] VITALS: PULSE 62; TEMP 98; O2SAT 95
[2018-08-24] MEDS: Mesalamine ER Cap 500 MG PO SCH (11:39)
[2018-08-24 11:44] VITALS: BP 111/60
--- NOTE | 2018-08-25 00:31 | PN ---
DATE: 08/24/2018 SUBJECTIVE: The patient is in bed, in no acute distress, was seen earlier today in Room 314. PHYSICAL EXAMINATION VITAL SIGNS: Temperature is 99, blood pressure is 130/70, respiratory rate of 18. HEENT: Unremarkable. NECK: Supple. LUNGS: Decreased breath sounds. HEART: Normal S1 and S2. ABDOMEN: Soft. LABORATORY DATA: Laboratory examination is noted. White count of 8.6. ASSESSMENT AND PLAN: This is an 88-year-old male was seen earlier today in Room 314 with systemic inflammatory response syndrome and no evidence of sepsis at this point status post sepsis with his left-side, healthcare-associated pneumonia with hypertension, history of transient ischemic attack. He will come off of antibiotics. Possible discharge. Rhoan Gautam MD
--- NOTE | 2018-08-25 02:28 | DS ---
HISTORY OF PRESENT ILLNESS: The patient has no complaints of any chest pain or shortness of breath or headaches or dizziness. He has been on the Transitional Care Unit for rehab. He had an episode of fever and had been started on meropenem for antibiotics. The patient has no fevers. The urine cultures and blood cultures have been negative. I spoke with the patient's at the bedside to give her an update. He is currently comfortable. He is going to go to subacute rehab today. I did speak to the patient's daughter yesterday to give her an update on the patient's diagnosis and plan of care. He has no complaints of any headaches or dizziness. No nausea. No vomiting. PHYSICAL EXAMINATION: VITAL SIGNS: Temperature is 98.1, pulse is 63, blood pressure is 116/60, and respirations are 18. GENERAL: The patient is lying in bed, flat, comfortable. HEENT: No oral lesion. Anicteric sclerae. Moist mucosa. NECK: No JVD, adenopathy, or thyromegaly. CARDIOVASCULAR: S1 and S2, regular. No murmurs, rubs, or gallops. LUNGS: Clear to auscultation bilaterally. No wheeze, rales, or rhonchi. ABDOMEN: Bowel sounds are positive, soft, nontender and nondistended. EXTREMITIES: No cyanosis, clubbing or edema. LABORATORY DATA: Last lab shows a white count of 8.6, hemoglobin of 11.5, and creatinine of 0.7. ASSESSMENT: 1. Delirium, resolved. 2. Sepsis, improved. 3. Headaches, improved. 4. Nausea and vomiting, improved. 5. Coronary artery disease, status post coronary artery bypass graft. 6. Hypertension. 7. Benign prostatic hyperplasia. 8. Crohn's disease. 9. Dyslipidemia. PLAN: The patient is currently on carvedilol. He is going to continue with his Coumadin. He is on Flomax for his BPH. The patient is on Lipitor for dyslipidemia. He is receiving Protonix daily and he is on Tylenol as needed. Reji Marie MD
== END 2018-08-24 14:24 | DRG 945 ==
LOC: TRCU 19:04
PROVIDERS: ADMIT Internal Medicine Nephrology; ATTEND Internal Medicine Nephrology
PROC: F07Z9ZZ Gait Training/Functional Ambulation Treatment (ICD-10-PCS; principal; 2018-08-18)
PROC: F08Z4ZZ Home Management Treatment (ICD-10-PCS; 2018-08-18)
DX: R41.0 Disorientation, unspecified (principal); R53.1 Weakness; A41.9 Sepsis, unspecified organism; J18.9 Pneumonia, unspecified organism; K50.90 Crohn's disease, unspecified, without complications; I25.10 Atherosclerotic heart disease of native coronary artery without angina pectoris; N40.1 Benign prostatic hyperplasia with lower urinary tract symptoms; R35.0 Frequency of micturition; R13.10 Dysphagia, unspecified; I10 Essential (primary) hypertension; E78.5 Hyperlipidemia, unspecified; I25.2 Old myocardial infarction; Y95 Nosocomial condition; Z86.73 Personal history of transient ischemic attack (TIA), and cerebral infarction without residual deficits; Z95.5 Presence of coronary angioplasty implant and graft; Z95.1 Presence of aortocoronary bypass graft; Z95.2 Presence of prosthetic heart valve; Z87.891 Personal history of nicotine dependence; Z79.02 Long term (current) use of antithrombotics/antiplatelets; Z79.01 Long term (current) use of anticoagulants

== ENCOUNTER 2018-10-23 19:54 | Emergency (ER) | payer MEDICARE ==
[2018-10-23 20:01] VITALS: BMI 26.5
[2018-10-23] MEDS ORDERED: Sodium Chloride 0.9% 1,000 ML IV SCH (20:15)
--- NOTE | 2018-10-23 20:26 | EDPD ---
HPI Stroke - General Time Seen by Provider: 10/23/18 20:00 Chief Complaint: Weakness/Neurological Deficit Historian: Patient, Family - History of Present Illness Narrative History of Present Illness (Free Text): 10/23/18 20:00 Donnie Salmeron is an 88 year old male, whose past medical history includes TIA, BPH, CABG, [place], CAD with coronary stents, hypertension, ascending thoracic aneurysm repair, AV valve replacement, Crohn's disease, and dyslipidemia, who presents to the ED brought in by EMS complaining of dysarthria. As per family, patient began experiencing difficulty speaking 1 hour prior to arrival. Patient symptoms resolved on arrival to Emergency department. Patient denies any headache, focal neurological deficits, chest pain, shortness of breath, or any other complaints. Date:: 10/23/18 Time: 20:00 Onset:: Hours (1 hour prior to arrival) Timing: Resolved Context: Home Exacerbated by: Nothing Relieved by: Nothing - Location Location: Speech rTPA Inclusion/Exclusion - Refusal of Treatment Patient Refused Treatment: No - Inclusion Criteria for Altepase All of the below criteria for inclusion were reviewed: Yes Patient is 18 years or Older: Yes The Clinical Diagnosis of Ischemic Stroke That is Causing a Potentially Disabling Neurological Deficit: Yes Time of Onset is Well Established to be Less Than 270 Minute Before Treatment Would Begin: Yes Risk/Benefit Discussed With Patient/Family Member Present: Yes - Exclusion Criteria for Altepase Current Intracranial Hemorrhage: No Subarachnoid hemorrhage: No Active Internal Bleeding: No Recent (within 3 months) Intracranial or Intraspinal Surgery: No Presence of intracranial conditions that may increase the risk of bleeding: Not Applicable Bleeding Diathesis Including but not limited to: Not Applicable Current Severe Uncontrolled Hypertension: No - Warning to TPA With Conditions Following Conditions Weighed Against Anticipated Benefit: No Past Medical History - Provider Review Nursing Documentation Reviewed: Yes - Infectious Disease Hx of Infectious Diseases: None - Cardiac Hx Hypertension: Yes - Pulmonary Hx Respiratory Disorders: Yes Hx Pneumonia: Yes - Neurological HX Cerebrovascular Accident: Yes - HEENT Hx HEENT Disorder: Yes Hx Cataracts: Yes - Renal Hx Renal Disorder: No - Endocrine/Metabolic Hx Diabetes Mellitus Type 2: Yes - Hematological/Oncological Hx Blood Disorders: No - Integumentary Hx Dermatological Disorder: No - Musculoskeletal/Rheumatological Hx Falls: No - Gastrointestinal Hx Gastrointestinal Disorders: Yes (Crohn's) - Genitourinary/Gynecological Hx Genitourinary Disorders: Yes Hx Reproductive Disorders: No - Psychiatric Hx Emotional Abuse: No Hx Physical Abuse: No Hx Substance Use: No - Surgical History Hx Cardiac Catheterization: Yes Hx Coronary Stent: Yes Hx Open Heart Surgery: Yes Other/Comment: cataract surgery - Anesthesia Hx Anesthesia Reactions: No Hx Malignant Hyperthermia: No - Suicidal Assessment Feels Threatened In Home Enviroment: No Family/Social History - Family/Social History Family History: Non-Contributory - Dr. Rothman Nursing documentation reviewed.: Yes Allergies/Home Meds Allergies/Adverse Reactions: Allergies pneumococcal vaccine Allergy (Severe, Verified 10/23/18 20:01) RASH Anesthetics - Alejandra Type- Parabens Adverse Reaction (Verified 10/23/18 20:01) ANAPHYLAXIS Home Medications: Home Meds Medication Instructions Recorded Confirmed Mesalamine [Pentasa] 1,500 mg PO BID 09/02/15 08/22/18 Simvastatin [Zocor] 40 mg PO DAILY 11/09/15 08/22/18 Review of Systems - Physician Review All systems were reviewed & negative as marked: Yes - Review of Systems Constitutional: Normal. absent: Fevers Eyes: Normal ENT: Normal Respiratory: Normal. absent: SOB, Cough Cardiovascular: Normal. absent: Chest Pain Gastrointestinal: Normal. absent: Abdominal Pain, Diarrhea, Nausea, Vomiting Genitourinary Male: Normal. absent: Dysuria, Frequency, Hematuria, Urinary Output Changes Musculoskeletal: Normal. absent: Back Pain, Neck Pain Skin: Normal. absent: Rash Neurological: Speech Changes Endocrine: Normal Hemo/Lymphatic: Normal Psychiatric: Normal ED Stroke Physical Exam Vital Signs Reviewed: Yes Temperature: Afebrile Blood Pressure: Hypertensive Pulse: Regular Respiratory Rate: Normal Appearance: Positive for: Well-Appearing, Non-Toxic, Comfortable Pain Distress: None Mental Status: Positive for: other (Alert and oriented to person and place) - Systems Exam Head: Present: Atraumatic, Normocephalic Pupils: Present: PERRL Extroacular Muscles: Present: EOMI Conjunctiva: Present: Normal Mouth: Present: Moist Mucous Membranes Neck: Present: Normal Range of Motion. No: Meningeal Signs, MIDLINE TENDERNESS, Paraspinal Tenderness Respiratory/Chest: Present: Clear to Auscultation, Good Air Exchange. No: Respiratory Distress, Accessory Muscle Use Cardiovascular: Present: Regular Rate and Rhythm, Normal S1, S2. No: Murmurs Abdomen: Present: Normal Bowel Sounds. No: Tenderness, Distention, Peritoneal Signs Back: Present: Normal Inspection. No: CVA Tenderness, Midline Tenderness, Paraspinal Tenderness Upper Extremity: Present: Normal Inspection. No: Cyanosis, Edema Lower Extremity: Present: Normal Inspection. No: Edema Neurologic: Present: GCS=15, CN II-XII Intact, Speech Normal, Motor Func Grossly Intact, Normal Sensory Function, Normal Cerebellar Funct, Memory Normal. No: Facial Droop Skin: Present: Warm, Dry, Normal Color. No: Rashes Lymphatic: Present: OX3, NI, NC Psychiatric: Present: Alert, Normal Insight, Normal Concentration. No: Oriented x 3 (Oriented x 2 (person and place)) Medical Decision Making ED Course and Treatment: 10/23/18 20:00 Impression: 88 year old male brought in for dysarthria 1 hour prior to arrival. Resolved on arrival to Emergency department. Plan: -- CT Head w/o contrast -- EKG -- Chest X-ray -- Labs, troponin, lipid panel, blood type and screen -- IV fluids -- Reassess and disposition Prior Visits: Notes and results from previous visits were reviewed. Progress Notes: 10/23/18 20:00 Pt seen on arrival to Emergency department. Code Stroke called. Pt taken to CT scan. Reviewed EKG, NSR at 82 bpm[address] Non-specific ST/T wave changes. 10/23/18 20:28 Reviewed radiology, Chest X-ray shows no acute processes. CT Head: BRAIN Chronic periventricular and subcortical microvascular disease is seen. VENTRICLES: There is generalized parenchymal atrophy noted as demonstrated by symmetrical dilatation of ventricles and sulci. ORBITS: The orbits are unremarkable. SINUSES AND MASTOIDS: The paranasal sinuses and mastoid air cells are clear. BONES: No fracture. MISCELLANEOUS: No acute intracranial pathology. IMPRESSION: 1. There is generalized parenchymal atrophy. 2. Chronic periventricular and subcortical microvascular disease is seen. 3. No acute intracranial pathology. No significant change. Electronically signed on Oct 23, 2018 8:28:28 PM EDT by: Barrera Simmons M.D., M.B.A., Certified By [employer] Trained MRI and CT Specialist 10/23/18 20:[address] Claire, neurologist institutional cook, who is aware and agrees with plan. States pt is not a candidate for tPA due to resolution of symptoms. Recommends pt receive Aspirin. 10/23/18 20:[address] Marie, who is aware and agrees with plan. Accepts pt in to his service. Pt will go to Telemetry observation for TIA. Requests Dr. Gentile on consult. - Critical Care Critical Care Minutes: 30 minutes - Lab Interpretations I have reviewed the lab results: Yes - RAD Interpretation Radiology Orders: 10/23/18 20:06 HEAD W/O (CODE STROKE) [CT] Stat CHEST PORTABLE [RAD] Stat Distribution Tech: ED Physician, Radiologist - EKG Interpretation Interpreted by ED Physician: Yes Type: 12 lead EKG - Medication Orders Current Medication Orders: Sodium Chloride (Sodium Chloride 0.9%) 1,000 mls @ 100 mls/hr IV .Q10H SUSANNA - Scribe Statement The provider has reviewed the documentation as recorded by the Scribe Maria Westfall Provider Scribe Attestation: All medical record entries made by the Scribe were at my direction and personally dictated by me. I have reviewed the chart and agree that the record a ccurately reflects my personal performance of the history, physical exam, medical decision making, and the department course for this patient. I have also personally directed, reviewed, and agree with the discharge instructions and disposition. NIHSS Scale ([place]) Time Performed: 20:00 - How Severe is the Stoke Baseline Level of Consciousness: 0=Alert LOC to Questions: 0=Both comments correct LOC to commands: 0=Obeys both correctly Best Gaze: 0=Normal Visual: 0=No visual loss Facial: 0=Normal Motor Arm - Left: 0=No drift Motor Arm - Right: 0=No drift Motor Leg - Left: 0=No drift Motor Leg - Right: 0=No drift Limb Ataxia: 0=Absent Sensory: 0=Normal Best Language: 0=No aphasia Dysarthia: 0=Normal articulation Extinction & Inattention (Neglect): 0=Normal, no object Score: 0 Risk Level: No Stroke Risk Disposition/Present on Arrival - Present on Arrival Any Indicators Present on Arrival: No History of DVT/PE: No History of Uncontrolled Diabetes: No Urinary Catheter: No History of Decub. Ulcer: No History Surgical Site Infection Following: None - Disposition Have Diagnosis and Disposition been Completed?: Yes Diagnosis: TIA (transient ischemic attack) Disposition: HOSPITALIZED Disposition Time: 21:08 Patient Problems: Current Active Problems Problem Status Onset TIA (transient ischemic attack) Acute Condition: STABLE Referrals: Reji Marie MD [Primary Care Provider] - Follow up with primary Forms: [employer] ([place])
[2018-10-23 20:29] LABS: BASO # 0.03 K/mm3 (0.0-2.0); BASO % 0.3 % (0.0-3.0); EOS # 0.4 (0.0-0.7); EOS % 3.4 % (1.5-5.0); HEMOGLOBIN 14.9 g/dL (14.0-18.0); LYMPH # 2.4 (1.2-3.4); LYMPH % 21.7 % (22.0-35.0); MEAN CELL VOLUME 91.9 fl (80.0-105.0); MEAN CORPUSCULAR HEMOGLOBIN 31.1 pg (25.0-35.0); MEAN CORPUSCULAR HGB CONC 33.9 g/dl (31.0-37.0); MEAN PLATELET VOLUME 9.6 fl (7.0-11.0); MONO # 1.1 (0.1-0.6); MONO % 9.7 % (1.0-6.0); RBC 4.79 10^6/uL (3.5-6.1); RED CELL DISTRIBUTION WIDTH 14.4 % (11.5-14.5); WHITE BLOOD COUNT 11.2 10^3/uL (4.5-11.0)
[2018-10-23 20:32] LABS: INR 2.44; PARTIAL THROMBOPLASTIN TIME 41.4 Seconds (26.9-38.3); PROTHROMBIN TIME 27.1 SECONDS (9.4-12.5)
[2018-10-23 20:33] VITALS: TEMP 97.6
[2018-10-23 20:34] LABS: ALBUMIN 4.7 g/dL (3.0-4.8); ALT/SGPT 20 U/L (7-56); AST/SGOT 45 U/L (17-59); BLOOD UREA NITROGEN 20 mg/dL (7-21); CALCIUM 10.1 mg/dL (8.4-10.5); GFR NON-AFRICAN AMERICAN > 60; HDL CHOLESTEROL 29 mg/dL (29-60)
[2018-10-23 20:45] LABS: LDL CHOLESTEROL 77 mg/dL (0-129)
[2018-10-23 20:47] LABS: TROPONIN I < 0.01 ng/mL
[2018-10-23 21:49] VITALS: BP 160/86; PULSE 89; RESP 18; O2SAT 97
[2018-10-24] MEDS ORDERED: Pantoprazole 40 mg EC Tab PO SCH (06:30)
--- NOTE | 2018-10-24 09:19 | CT ---
Date of service: 10/23/2018 PROCEDURE: CT HEAD WITHOUT CONTRAST. HISTORY: Code Stroke COMPARISON: None available. TECHNIQUE: Axial computed tomography images were obtained through the head/brain without intravenous contrast. Radiation dose: Total exam DLP = 916.26 mGy-cm. This CT exam was performed using one or more of the following dose reduction techniques: Automated exposure control, adjustment of the mA and/or kV according to patient size, and/or use of iterative reconstruction technique. FINDINGS: HEMORRHAGE: No intracranial hemorrhage. BRAIN: No mass effect or edema. 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 There is moderate atrophy. There are no acute findings VENTRICLES: Unremarkable. No hydrocephalus. CALVARIUM: Unremarkable. PARANASAL SINUSES: Unremarkable as visualized. No significant inflammatory changes. MASTOID AIR CELLS: Unremarkable as visualized. No inflammatory changes. 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 There is moderate atrophy. There are no acute findings
[2018-10-24] MEDS ORDERED: Mesalamine ER Cap 500 MG PO SCH (10:00)
--- NOTE | 2018-10-24 10:13 | RAD ---
Date of service: 10/23/2018 HISTORY: Code Stroke COMPARISON: No prior. TECHNIQUE: 1 view obtained. FINDINGS: LUNGS: Minimal left upper lobe infiltrate PLEURA: No significant pleural effusion identified, no pneumothorax apparent. CARDIOVASCULAR: Aortic calcification Moderate cardiomegaly no pulmonary vascular congestion. OSSEOUS STRUCTURES: Aortic calcification VISUALIZED UPPER ABDOMEN: Normal. OTHER FINDINGS: None. IMPRESSION: Minimal left upper lobe infiltrate
--- NOTE | 2018-10-24 10:52 | CARD ---
APPROVED REPORT Date of service: 10/23/2018 EKG Measurement Heart [id number] <Conclusion> Normal sinus rhythm Low voltage QRS Anteroseptal infarct, age undetermined Abnormal ECG
== END 2018-10-23 22:13 | disposition left against medical advice (07) ==
LOC: ED 19:54 → UNDOADMOB 20:59 → ERH 20:59 → 2RSO 22:15
DX: G45.9 Transient cerebral ischemic attack, unspecified (principal); I25.10 Atherosclerotic heart disease of native coronary artery without angina pectoris; Z95.1 Presence of aortocoronary bypass graft; I10 Essential (primary) hypertension; N40.0 Benign prostatic hyperplasia without lower urinary tract symptoms; E78.5 Hyperlipidemia, unspecified; E11.9 Type 2 diabetes mellitus without complications
CPT/HCPCS: 70450; 71045; 80053; 80061; 82948; 83036; 84484; 85025; 85610; 85730; 86850; 86900; 93005; 99291; J7030